=== PATIENT | female | born 1945 | race American Indian/Alaskan Native ===

== ENCOUNTER 2017-07-29 01:00 | Inpatient (IN) | payer MEDICARE ==
[2017-07-29] MEDS ORDERED: NACL 0.9% 1000 ML 1,000 ML IV ONE ×3 (01:02→03:37)
[2017-07-29] MEDS ORDERED: TYLENOL PR ONE (01:02)
[2017-07-29] MEDS ORDERED: LEVAQUIN 750MG/150ML 750 MG/150 ML BAG IV ONE (01:04)
[2017-07-29] MEDS ORDERED: HumuLIN R IV ONE (01:06)
--- NOTE | 2017-07-29 01:40 | XRay Report ---
FINAL REPORT EXAM: XR CHEST 1V AP HISTORY: Fever/Sepsis COMPARISON: None available. FINDINGS: Frontal view(s) of the chest obtained. Heart normal in size. Tracheostomy tube is present and appears midline. Surgical clips right axillary region. Patchy opacity left lung base concerning for pneumonia. No gross pneumothorax. IMPRESSION: Patchy opacity left lung base concerning for pneumonia given the patient's history.
[2017-07-29] MEDS ORDERED: ZOSYN/NS 4.5GM/100ML 4.5 GM/100 ML VIAL IV ONE (02:00)
[2017-07-29] MEDS ORDERED: VANCOMYCIN/NS 1 GM/250 ML 1 GM/250 ML BAG IV SCH (02:00)
[2017-07-29] MEDS ORDERED: VANCOMYCIN/0.45 NS 1 GM/250 ML 1 GM/250 ML BAG IV ONE (02:00)
[2017-07-29 02:08] LABS: ABG PH 7.327 pH Units (7.350-7.450); VEN PH 7.327 (7.320-7.420)
[2017-07-29 02:12] LABS: Hemoglobin 9.7 gm/dl (10.1-14.3); Mean Corpuscular HGB Conc 30 % (30-34); Mean Corpuscular Volume 80 fl (79-97); Platelet Count 373 K/mm3 (140-440); Red Blood Count 4.01 M/mm3 (3.65-5.03)
[2017-07-29 02:27] LABS: Calcium 8.8 mg/dL (8.4-10.2)
[2017-07-29 02:29] LABS: ABG Base Excess TNR mmol/L (-2.0-3.0); ABG HCO3 TNR mmol/L (20.0-26.0); ABG Methemoglobin TNR % (0.0-1.5); ABG Oxygen Saturation TNR % (95.0-99.0); ABG PCO2 TNR mm Hg; ABG PO2 TNR mm Hg (80.0-90.0)
[2017-07-29 02:37] LABS: Partial Thromboplastin Time 55.7 Sec. (24.2-36.6)
[2017-07-29 02:44] LABS: Creatine Kinase MB 1.2 ng/mL (0.0-4.0)
[2017-07-29] MEDS ORDERED: ASPIRIN PR ONE (02:46)
[2017-07-29 02:49] LABS: INR 5.49 (0.87-1.13); Mean Corpuscular Hemoglobin 24 pg (28-32)
--- NOTE | 2017-07-29 03:38 | Emergency Department Report ---
ED Fever HPI - General Chief Complaint: Fever Stated Complaint: HIGH BLOOD SUGAR/FEVER Time Seen by Provider: 07/29/17 01:01 Source: EMS, senior care records Exam Limitations: clinical condition, physical impairment - History of Present Illness Initial Comments: 71-year-old female with chronic debility including tracheostomy, PEG tube, chronic contractures, chronically depressed mental status, and anoxic brain injury, and inability to speak, diabetes, hypertension, and previous mastectomy and hysterectomy presents to the hospital with fever, tachypnea, and tachycardia from the senior care. Patient is unable to provide any history of present illness. Patient opens eyes spontaneously but unable to speak or follow commands which is apparently her baseline. Thick greenish mucus reported coming from tracheostomy. Patient is room air saturation was in the 80s as per EMS but improved with supplemental oxygenation via nonrebreather at tracheostomy tube. High glucose also reported by EMS. Patient presents with indwelling Blackman catheter as well and chronic decubitus ulcers. 1 g of Rocephin and 650 mg of Tylenol provided prior to arrival. Pt also is on coumadin. Pt is a DNR ED Review of Systems ROS: Stated complaint: HIGH BLOOD SUGAR/FEVER Other details as noted in HPI Comment: Unobtainable due to pts medical conditions ED Past Medical Hx - Past Medical History Hx Hypertension: Yes Hx Diabetes: Yes - Surgical History Hx Breast Surgery: Yes (Mastectomy 2002) Additional Surgical History: Hysterectomy 1974 - Social History Smoking Status: Unknown if ever smoked - Medications Home Medications: Home Medications Medication Instructions Recorded Confirmed Last Taken Type Aspirin [Elk Aspirin] 09/30/13 09/30/13 Unknown History Hydrochlorothiazide [Hctz] 12.5 mg PO QDAY 09/30/13 09/30/13 09/30/13 08:00 History Lisinopril [Zestril] 40 mg PO DAILY 09/30/13 09/30/13 09/30/13 08:00 History metFORMIN [Glucophage] 500 mg PO DAILY 09/30/13 09/30/13 09/30/13 08:00 History ED Physical Exam - General Limitations: Altered Mental Status, Physical Limitation, Other - Other Other exam information: General: Frail appearing Head exam: Atraumatic, normocephalic Eyes exam: Pupils equal reactive to light ENT: Dry mucous membrane Neck exam: Normal inspection, tracheostomy Respiratory exam: Crackles left base, tachypnea, accessory muscle use Cardiovascular: Tachycardic regular rhythm Abdomen: Soft, nondistended, and nontender, with normal bowel sounds, no rebound, or guarding. Positive PEG tube Extremity: Significant contractures of the lower extremities Back: Normal Inspection, full range of motion, no tenderness Neurologic: Opens eyes spontaneously, nonverbal, does not follow commands, limited spontaneous movement of extremities Psychiatric: normal affect, normal mood Skin: Left Foot with mild edema with necrosis to the plantar surface of the toes gratis at the first and fifth toe. Mild Drainage noted at the great toe. 2+ DP pulse in the left foot ED Course Vital Signs 07/29/17 07/29/17 07/29/17 00:52 01:00 01:14 Temperature 103.6 F H Pulse Rate 174 H 177 H Respiratory 55 H 26 H Rate Blood Pressure 49/23 93/59 O2 Sat by Pulse 94 100 100 Oximetry 07/29/17 07/29/17 07/29/17 01:16 01:30 01:45 Temperature Pulse Rate 176 H 155 H 147 H Respiratory 20 25 H 24 Rate Blood Pressure 93/59 93/59 O2 Sat by Pulse 100 100 Oximetry 07/29/17 07/29/17 07/29/17 02:01 02:15 02:30 Temperature Pulse Rate 136 H 130 H 130 H Respiratory 21 21 20 Rate Blood Pressure 93/59 86/59 90/64 O2 Sat by Pulse 100 100 100 Oximetry 07/29/17 07/29/17 02:46 04:20 Temperature Pulse Rate 127 H 107 H Respiratory 21 Rate Blood Pressure 90/64 84/55 O2 Sat by Pulse 100 100 Oximetry - Central Line Placement Right IJ Consent Obtained: emergent situation Time Out Performed: Yes Patient Placed on Monitor/Pulse Ox: Yes Prep: mask, gown, gloves Central Line Prep: Chlorhexidine scrub, sterile drapes applied Local Anesthesia Used: Lidocaine 1% Amount of Anesthesia Used (mls): 3 Ultrasound Used for Placement: Yes Central Line Lumen Inserted: triple Bloods Obtained for Lab: Yes Central Line Position: good blood return, sutured in place with nyl Post Procedure X-Ray: tip of catheter in good p Patient Tolerated Procedure: well Complications: none ED Medical Decision Making - Lab Data Result diagrams: 07/29/17 01:41 07/29/17 01:41 Lab Results 07/29/17 07/29/17 07/29/17 Range/Units 01:41 01:41 01:41 WBC 21.0 H (4.5-11.0) K/mm3 RBC 4.01 (3.65-5.03) M/mm3 Hgb 9.7 L (10.1-14.3) gm/dl Hct 32.0 (30.3-42.9) % MCV 80 (79-97) fl MCH 24 L (28-32) pg MCHC 30 (30-34) % RDW 19.0 H (13.2-15.2) % Plt Count 373 (140-440) K/mm3 Add Manual Diff Complete Total Counted 200 Seg Neutrophils % [employer] Analyst Seg Neuts % (Manual) 77.0 H (40.0-70.0) % Band Neutrophils % 15.5 % Lymphocytes % (Manual) 4.5 L (13.4-35.0) % Reactive Lymphs % (Man) 0 % Monocytes % (Manual) 3.0 (0.0-7.3) % Eosinophils % (Manual) 0 (0.0-4.3) % Basophils % (Manual) 0 (0.0-1.8) % Metamyelocytes % 0 % Myelocytes % 0 % Promyelocytes % 0 % Blast Cells % 0 % Nucleated RBC % 1.0 H (0.0-0.9) % Seg Neutrophils # Man 16.2 H (1.8-7.7) K/mm3 Band Neutrophils # 3.3 K/mm3 Lymphocytes # (Manual) 0.9 L (1.2-5.4) K/mm3 Abs React Lymphs (Man) 0.0 K/mm3 Monocytes # (Manual) 0.6 (0.0-0.8) K/mm3 Eosinophils # (Manual) 0.0 (0.0-0.4) K/mm3 Basophils # (Manual) 0.0 (0.0-0.1) K/mm3 Metamyelocytes # 0.0 K/mm3 Myelocytes # 0.0 K/mm3 Promyelocytes # 0.0 K/mm3 Blast Cells # 0.0 K/mm3 WBC Morphology Not Reportable Hypersegmented Neuts Not Reportable Hyposegmented Neuts Not Reportable Hypogranular Neuts Not Reportable Smudge Cells Not Reportable Toxic Granulation Not Reportable Toxic Vacuolation Not Reportable Dohle Bodies Not Reportable Pelger-Huet Anomaly Not Reportable Zach Rods Not Reportable Platelet Estimate Consistent w auto Clumped Platelets Not Reportable Plt Clumps, EDTA Not Reportable Large Platelets Rare Giant Platelets Not Reportable Platelet Satelliting Not Reportable Plt Morphology Comment Not Reportable RBC Morphology Not Reportable Dimorphic RBCs Not Reportable Polychromasia Not Reportable Hypochromasia 1+ Poikilocytosis Not Reportable Anisocytosis Not Reportable Microcytosis Not Reportable Macrocytosis Not Reportable Spherocytes Not Reportable Pappenheimer Bodies Not Reportable Sickle Cells Not Reportable Target Cells Not Reportable Tear Drop Cells Not Reportable Ovalocytes Not Reportable Helmet Cells Not Reportable [place] Bodies Not Reportable [place] Rings Not Reportable [place] Cells Not Reportable Bite Cells Not Reportable Crenated Cell Not Reportable Elliptocytes Not Reportable Acanthocytes (Spur) Not Reportable Rouleaux Not Reportable Hemoglobin C Crystals Not Reportable Schistocytes Not Reportable Malaria parasites Not Reportable He Bodies Not Reportable Hem Pathologist Commnt No PT 54.1 H (12.2-14.9) Sec. INR 5.49 H* (0.87-1.13) APTT 55.7 H (24.2-36.6) Sec. POC ABG pH (7.35-7.45) ABG pH (7.350-7.450) pH Units POC ABG pCO2 (35-45) ABG pCO2 POC ABG pO2 (80-105) ABG pO2 POC ABG HCO3 ABG HCO3 POC ABG Total CO2 POC ABG O2 Sat ABG O2 Saturation ABG O2 Content POC ABG Base Excess ABG Base Excess ABG Hemoglobin ABG Carboxyhemoglobin ABG Methemoglobin VBG pH (7.320-7.420) Oxyhemoglobin FiO2 % Sodium (137-145) mmol/L Potassium (3.6-5.0) mmol/L Chloride (98-107) mmol/L Carbon Dioxide (22-30) mmol/L Anion Gap mmol/L BUN (7-17) mg/dL Creatinine (0.7-1.2) mg/dL Estimated GFR ml/min BUN/Creatinine Ratio % Glucose (65-100) mg/dL Lactic Acid 9.30 H* (0.7-2.0) mmol/L Calcium (8.4-10.2) mg/dL Total Bilirubin (0.1-1.2) mg/dL AST (5-40) units/L ALT (7-56) units/L Alkaline Phosphatase (35-129) units/L Total Creatine Kinase (30-135) units/L CK-MB (CK-2) (0.0-4.0) ng/mL CK-MB (CK-2) Rel Index (0-4) Troponin T (0.00-0.029) ng/mL Total Protein (6.3-8.2) g/dL Albumin (3.9-5) g/dL Albumin/Globulin Ratio % Triglycerides (2-149) mg/dL Cholesterol (50-199) mg/dL LDL Cholesterol Direct (50-130) mg/dL HDL Cholesterol (40-59) mg/dL Cholesterol/HDL Ratio % Urine Color (Yellow) Urine Turbidity (Clear) Urine pH (5.0-7.0) Ur Specific [place] (1.003-1.030) Urine Protein (Negative) mg/dL Urine Glucose (UA) (Negative) mg/dL Urine Ketones (Negative) mg/dL Urine Blood (Negative) Urine Nitrite (Negative) Urine Bilirubin (Negative) Urine Urobilinogen (<2.0) mg/dL Ur Leukocyte Esterase (Negative) Urine WBC (Auto) (0.0-6.0) /HPF Urine RBC (Auto) (0.0-6.0) /HPF U Epithel Cells (Auto) (0-13.0) /HPF Urine Bacteria (Auto) (Negative) /HPF Urine WBC Clumps /HPF Urine Mucus /HPF Ur Yeast w Hyphae /HPF Urine Yeast (Budding) /HPF 07/29/17 07/29/17 07/29/17 Range/Units 01:41 01:41 01:41 WBC (4.5-11.0) K/mm3 RBC (3.65-5.03) M/mm3 Hgb (10.1-14.3) gm/dl Hct (30.3-42.9) % MCV (79-97) fl MCH (28-32) pg MCHC (30-34) % RDW (13.2-15.2) % Plt Count (140-440) K/mm3 Add Manual Diff Total Counted Seg Neutrophils % Seg Neuts % (Manual) (40.0-70.0) % Band Neutrophils % % Lymphocytes % (Manual) (13.4-35.0) % Reactive Lymphs % (Man) % Monocytes % (Manual) (0.0-7.3) % Eosinophils % (Manual) (0.0-4.3) % Basophils % (Manual) (0.0-1.8) % Metamyelocytes % % Myelocytes % % Promyelocytes % % Blast Cells % % Nucleated RBC % (0.0-0.9) % Seg Neutrophils # Man (1.8-7.7) K/mm3 Band Neutrophils # K/mm3 Lymphocytes # (Manual) (1.2-5.4) K/mm3 Abs React Lymphs (Man) K/mm3 Monocytes # (Manual) (0.0-0.8) K/mm3 Eosinophils # (Manual) (0.0-0.4) K/mm3 Basophils # (Manual) (0.0-0.1) K/mm3 Metamyelocytes # K/mm3 Myelocytes # K/mm3 Promyelocytes # K/mm3 Blast Cells # K/mm3 WBC Morphology Hypersegmented Neuts Hyposegmented Neuts Hypogranular Neuts Smudge Cells Toxic Granulation Toxic Vacuolation Dohle Bodies Pelger-Huet Anomaly Zach Rods Platelet Estimate Clumped Platelets Plt Clumps, EDTA Large Platelets Giant Platelets Platelet Satelliting Plt Morphology Comment RBC Morphology Dimorphic RBCs Polychromasia Hypochromasia Poikilocytosis Anisocytosis Microcytosis Macrocytosis Spherocytes Pappenheimer Bodies Sickle Cells Target Cells Tear Drop Cells Ovalocytes Helmet Cells [place] Bodies [place] Rings [place] Cells Bite Cells Crenated Cell Elliptocytes Acanthocytes (Spur) Rouleaux Hemoglobin C Crystals Schistocytes Malaria parasites He Bodies Hem Pathologist Commnt PT (12.2-14.9) Sec. INR (0.87-1.13) APTT (24.2-36.6) Sec. POC ABG pH (7.35-7.45) ABG pH 7.327 L (7.350-7.450) pH Units POC ABG pCO2 (35-45) ABG pCO2 TNR POC ABG pO2 (80-105) ABG pO2 TNR POC ABG HCO3 ABG HCO3 TNR POC ABG Total CO2 POC ABG O2 Sat ABG O2 Saturation TNR ABG O2 Content TNR POC ABG Base Excess ABG Base Excess TNR ABG Hemoglobin TNR ABG Carboxyhemoglobin TNR ABG Methemoglobin TNR VBG pH 7.327 (7.320-7.420) Oxyhemoglobin TNR FiO2 21 % Sodium 154 H (137-145) mmol/L Potassium 3.6 (3.6-5.0) mmol/L Chloride 109.8 H (98-107) mmol/L Carbon Dioxide 23 (22-30) mmol/L Anion Gap 25 mmol/L BUN 43 H (7-17) mg/dL Creatinine 1.3 H (0.7-1.2) mg/dL Estimated GFR 49 ml/min BUN/Creatinine Ratio 33 % Glucose 682 H* (65-100) mg/dL Lactic Acid (0.7-2.0) mmol/L Calcium 8.8 (8.4-10.2) mg/dL Total Bilirubin 0.20 (0.1-1.2) mg/dL AST 27 (5-40) units/L ALT 55 (7-56) units/L Alkaline Phosphatase 109 (35-129) units/L Total Creatine Kinase 91 (30-135) units/L CK-MB (CK-2) 1.2 (0.0-4.0) ng/mL CK-MB (CK-2) Rel Index 1.3 (0-4) Troponin T 0.209 H* (0.00-0.029) ng/mL Total Protein 6.5 (6.3-8.2) g/dL Albumin 2.0 L (3.9-5) g/dL Albumin/Globulin Ratio 0.4 % Triglycerides 115 (2-149) mg/dL Cholesterol 50 (50-199) mg/dL LDL Cholesterol Direct 14 L (50-130) mg/dL HDL Cholesterol 13 L (40-59) mg/dL Cholesterol/HDL Ratio 3.84 % Urine Color (Yellow) Urine Turbidity (Clear) Urine pH (5.0-7.0) Ur Specific [place] (1.003-1.030) Urine Protein (Negative) mg/dL Urine Glucose (UA) (Negative) mg/dL Urine Ketones (Negative) mg/dL Urine Blood (Negative) Urine Nitrite (Negative) Urine Bilirubin (Negative) Urine Urobilinogen (<2.0) mg/dL Ur Leukocyte Esterase (Negative) Urine WBC (Auto) (0.0-6.0) /HPF Urine RBC (Auto) (0.0-6.0) /HPF U Epithel Cells (Auto) (0-13.0) /HPF Urine Bacteria (Auto) (Negative) /HPF Urine WBC Clumps /HPF Urine Mucus /HPF Ur Yeast w Hyphae /HPF Urine Yeast (Budding) /HPF 07/29/17 07/29/17 07/29/17 Range/Units 02:45 03:19 04:11 WBC (4.5-11.0) K/mm3 RBC (3.65-5.03) M/mm3 Hgb (10.1-14.3) gm/dl Hct (30.3-42.9) % MCV (79-97) fl MCH (28-32) pg MCHC (30-34) % RDW (13.2-15.2) % Plt Count (140-440) K/mm3 Add Manual Diff Total Counted Seg Neutrophils % Seg Neuts % (Manual) (40.0-70.0) % Band Neutrophils % % Lymphocytes % (Manual) (13.4-35.0) % Reactive Lymphs % (Man) % Monocytes % (Manual) (0.0-7.3) % Eosinophils % (Manual) (0.0-4.3) % Basophils % (Manual) (0.0-1.8) % Metamyelocytes % % Myelocytes % % Promyelocytes % % Blast Cells % % Nucleated RBC % (0.0-0.9) % Seg Neutrophils # Man (1.8-7.7) K/mm3 Band Neutrophils # K/mm3 Lymphocytes # (Manual) (1.2-5.4) K/mm3 Abs React Lymphs (Man) K/mm3 Monocytes # (Manual) (0.0-0.8) K/mm3 Eosinophils # (Manual) (0.0-0.4) K/mm3 Basophils # (Manual) (0.0-0.1) K/mm3 Metamyelocytes # K/mm3 Myelocytes # K/mm3 Promyelocytes # K/mm3 Blast Cells # K/mm3 WBC Morphology Hypersegmented Neuts Hyposegmented Neuts Hypogranular Neuts Smudge Cells Toxic Granulation Toxic Vacuolation Dohle Bodies Pelger-Huet Anomaly Zach Rods Platelet Estimate Clumped Platelets Plt Clumps, EDTA Large Platelets Giant Platelets Platelet Satelliting Plt Morphology Comment RBC Morphology Dimorphic RBCs Polychromasia Hypochromasia Poikilocytosis Anisocytosis Microcytosis Macrocytosis Spherocytes Pappenheimer Bodies Sickle Cells Target Cells Tear Drop Cells Ovalocytes Helmet Cells [place] Bodies [place] Rings [place] Cells Bite Cells Crenated Cell Elliptocytes Acanthocytes (Spur) Rouleaux Hemoglobin C Crystals Schistocytes Malaria parasites He Bodies Hem Pathologist Commnt PT (12.2-14.9) Sec. INR (0.87-1.13) APTT (24.2-36.6) Sec. POC ABG pH 7.397 (7.35-7.45) ABG pH (7.350-7.450) pH Units POC ABG pCO2 32.9 L (35-45) ABG pCO2 POC ABG pO2 74 L (80-105) ABG pO2 POC ABG HCO3 20.3 ABG HCO3 POC ABG Total CO2 21 POC ABG O2 Sat 95 ABG O2 Saturation ABG O2 Content POC ABG Base Excess -5 ABG Base Excess ABG Hemoglobin ABG Carboxyhemoglobin ABG Methemoglobin VBG pH (7.320-7.420) Oxyhemoglobin FiO2 50 % Sodium (137-145) mmol/L Potassium (3.6-5.0) mmol/L Chloride (98-107) mmol/L Carbon Dioxide (22-30) mmol/L Anion Gap mmol/L BUN (7-17) mg/dL Creatinine (0.7-1.2) mg/dL Estimated GFR ml/min BUN/Creatinine Ratio % Glucose (65-100) mg/dL Lactic Acid 8.30 H* 7.50 H* (0.7-2.0) mmol/L Calcium (8.4-10.2) mg/dL Total Bilirubin (0.1-1.2) mg/dL AST (5-40) units/L ALT (7-56) units/L Alkaline Phosphatase (35-129) units/L Total Creatine Kinase (30-135) units/L CK-MB (CK-2) (0.0-4.0) ng/mL CK-MB (CK-2) Rel Index (0-4) Troponin T (0.00-0.029) ng/mL Total Protein (6.3-8.2) g/dL Albumin (3.9-5) g/dL Albumin/Globulin Ratio % Triglycerides (2-149) mg/dL Cholesterol (50-199) mg/dL LDL Cholesterol Direct (50-130) mg/dL HDL Cholesterol (40-59) mg/dL Cholesterol/HDL Ratio % Urine Color (Yellow) Urine Turbidity (Clear) Urine pH (5.0-7.0) Ur Specific [place] (1.003-1.030) Urine Protein (Negative) mg/dL Urine Glucose (UA) (Negative) mg/dL Urine Ketones (Negative) mg/dL Urine Blood (Negative) Urine Nitrite (Negative) Urine Bilirubin (Negative) Urine Urobilinogen (<2.0) mg/dL Ur Leukocyte Esterase (Negative) Urine WBC (Auto) (0.0-6.0) /HPF Urine RBC (Auto) (0.0-6.0) /HPF U Epithel Cells (Auto) (0-13.0) /HPF Urine Bacteria (Auto) (Negative) /HPF Urine WBC Clumps /HPF Urine Mucus /HPF Ur Yeast w Hyphae /HPF Urine Yeast (Budding) /HPF 07/29/17 07/29/17 Range/Units 04:11 Unknown WBC (4.5-11.0) K/mm3 RBC (3.65-5.03) M/mm3 Hgb (10.1-14.3) gm/dl Hct (30.3-42.9) % MCV (79-97) fl MCH (28-32) pg MCHC (30-34) % RDW (13.2-15.2) % Plt Count (140-440) K/mm3 Add Manual Diff Total Counted Seg Neutrophils % Seg Neuts % (Manual) (40.0-70.0) % Band Neutrophils % % Lymphocytes % (Manual) (13.4-35.0) % Reactive Lymphs % (Man) % Monocytes % (Manual) (0.0-7.3) % Eosinophils % (Manual) (0.0-4.3) % Basophils % (Manual) (0.0-1.8) % Metamyelocytes % % Myelocytes % % Promyelocytes % % Blast Cells % % Nucleated RBC % (0.0-0.9) % Seg Neutrophils # Man (1.8-7.7) K/mm3 Band Neutrophils # K/mm3 Lymphocytes # (Manual) (1.2-5.4) K/mm3 Abs React Lymphs (Man) K/mm3 Monocytes # (Manual) (0.0-0.8) K/mm3 Eosinophils # (Manual) (0.0-0.4) K/mm3 Basophils # (Manual) (0.0-0.1) K/mm3 Metamyelocytes # K/mm3 Myelocytes # K/mm3 Promyelocytes # K/mm3 Blast Cells # K/mm3 WBC Morphology Hypersegmented Neuts Hyposegmented Neuts Hypogranular Neuts Smudge Cells Toxic Granulation Toxic Vacuolation Dohle Bodies Pelger-Huet Anomaly Zach Rods Platelet Estimate Clumped Platelets Plt Clumps, EDTA Large Platelets Giant Platelets Platelet Satelliting Plt Morphology Comment RBC Morphology Dimorphic RBCs Polychromasia Hypochromasia Poikilocytosis Anisocytosis Microcytosis Macrocytosis Spherocytes Pappenheimer Bodies Sickle Cells Target Cells Tear Drop Cells Ovalocytes Helmet Cells [place] Bodies [place] Rings [place] Cells Bite Cells Crenated Cell Elliptocytes Acanthocytes (Spur) Rouleaux Hemoglobin C Crystals Schistocytes Malaria parasites He Bodies Hem Pathologist Commnt PT (12.2-14.9) Sec. INR (0.87-1.13) APTT (24.2-36.6) Sec. POC ABG pH (7.35-7.45) ABG pH (7.350-7.450) pH Units POC ABG pCO2 (35-45) ABG pCO2 POC ABG pO2 (80-105) ABG pO2 POC ABG HCO3 ABG HCO3 POC ABG Total CO2 POC ABG O2 Sat ABG O2 Saturation ABG O2 Content POC ABG Base Excess ABG Base Excess ABG Hemoglobin ABG Carboxyhemoglobin ABG Methemoglobin VBG pH (7.320-7.420) Oxyhemoglobin FiO2 % Sodium (137-145) mmol/L Potassium (3.6-5.0) mmol/L Chloride (98-107) mmol/L Carbon Dioxide (22-30) mmol/L Anion Gap mmol/L BUN (7-17) mg/dL Creatinine (0.7-1.2) mg/dL Estimated GFR ml/min BUN/Creatinine Ratio % Glucose (65-100) mg/dL Lactic Acid (0.7-2.0) mmol/L Calcium (8.4-10.2) mg/dL Total Bilirubin (0.1-1.2) mg/dL AST (5-40) units/L ALT (7-56) units/L Alkaline Phosphatase (35-129) units/L Total Creatine Kinase (30-135) units/L CK-MB (CK-2) (0.0-4.0) ng/mL CK-MB (CK-2) Rel Index (0-4) Troponin T 0.169 H* (0.00-0.029) ng/mL Total Protein (6.3-8.2) g/dL Albumin (3.9-5) g/dL Albumin/Globulin Ratio % Triglycerides (2-149) mg/dL Cholesterol (50-199) mg/dL LDL Cholesterol Direct (50-130) mg/dL HDL Cholesterol (40-59) mg/dL Cholesterol/HDL Ratio % Urine Color Yellow (Yellow) Urine Turbidity Turbid (Clear) Urine pH 5.0 (5.0-7.0) Ur Specific [place] 1.024 (1.003-1.030) Urine Protein 30 mg/dl (Negative) mg/dL Urine Glucose (UA) >=500 (Negative) mg/dL Urine Ketones Neg (Negative) mg/dL Urine Blood Lg (Negative) Urine Nitrite Neg (Negative) Urine Bilirubin Neg (Negative) Urine Urobilinogen < 2.0 (<2.0) mg/dL Ur Leukocyte Esterase Mod (Negative) Urine WBC (Auto) 169.0 H (0.0-6.0) /HPF Urine RBC (Auto) > 182.0 (0.0-6.0) /HPF U Epithel Cells (Auto) 9.0 (0-13.0) /HPF Urine Bacteria (Auto) 4+ (Negative) /HPF Urine WBC Clumps 3+ /HPF Urine Mucus 1+ /HPF Ur Yeast w Hyphae 1+ /HPF Urine Yeast (Budding) 3+ /HPF - EKG Data -: EKG Interpreted by Fl EKG shows normal: sinus rhythm (vs svt), axis (qrs 67), QRS complexes (64), ST- T waves (no STEMI or T-wave inversion) Rate: tachycardia (174) - EKG Data When compared to previous EKG there are: previous EKG unavailable - Radiology Data Radiology results: report reviewed read by radiologist cxr: left lung opacity concerning for pneumonia Read by me Chest x-ray status post right IJ placement: Good line placement without pneumothorax official report pending - Medical Decision Making After 2 L of IV fluids patient heart rate improved from the 170's to the 90s and appears to be sinus rhythm on a monitor. Patient's systolic blood pressure however, remained in the 70s to 80s despite IV fluid resuscitation. Central line was placed per request of hospitalist. Patient received vancomycin, Zosyn , and Levaquin in the ED for sepsis. Source is likely pneumonia but may also be left foot necrosis last infection as well. UA is also positive for infection. Patient is pancultured with results pending. Additional Tylenol provided for fever. Patient is hyperglycemic but does not appear to be in DKA at this time. Insulin initiated. Significant lactic acidosis likely secondary to sepsis. Patient received aspirin for elevated troponin but may also be secondary to renal insufficiency. Repeat troponin pending. No previous labs EKG available for comparison - Differential Diagnosis sepsis, UTI, pneumonia, cellulitis, infected sacral decubitus Critical Care Time: Yes Critical care time in (mins) excluding proc time.: 35 Critical care attestation.: If time is entered above; I have spent that time in minutes in the direct care of this critically ill patient, excluding procedure time. ED Disposition Clinical Impression: Hyperglycemia, Pneumonia, Tracheostomy dependent, Decubitus ulcers, Feeding by G-tube, Lactic acid acidosis, Dehydration, Renal insufficiency, Elevated troponin, Left foot infection, Septic shock, Supratherapeutic INR, UTI (urinary tract infection) Disposition: OP ADMIT IP TO THIS HOSP Is pt being admited?: Yes Condition: Stable Time of Disposition: 03:38 (Dr Painter/hosp)
[2017-07-29 04:11] LABS: Band Neutrophils # (Manual) 3.3 K/mm3; Basophils % (Manual) 0 % (0.0-1.8); Eosinophils % (Manual) 0 % (0.0-4.3); Total Cells Counted 200
[2017-07-29 04:12] LABS: Hypochromasia 1+; Large Platelets Rare; Platelet Estimate Consistent w Auto
[2017-07-29] MEDS ORDERED: ZOFRAN IV PRN (04:30)
[2017-07-29] MEDS ORDERED: LEVOPHED DRIP 4 MG/NS 250 ML 4 MG/250 ML BAG IV ONE (04:30)
[2017-07-29] MEDS ORDERED: SODIUM CHLORIDE FLUSH SYRINGE 10 ML IV PRN (04:30)
--- NOTE | 2017-07-29 04:37 | History and Physical Report ---
History of Present Illness Date of examination: 07/29/17 History of present illness: 71 -year-old history with history of hypertension, diabetes from the assisted for evaluation of fever. In the emergency room she was hypotensive with systolic blood pressure in 80s, she was given IV fluids, central line was placed and he was started on antibiotics. Patient is a aphasic, review of system is unobtainable PAST MEDICAL HISTORY: Hypertension, diabetes PAST SURGICAL HISTORY: Unknown SOCIAL HISTORY: Unknown FAMILY HISTORY: Unknown Medications and Allergies Allergies Allergy/AdvReac Type Severity Reaction Status Date / Time No Known Allergies Allergy Unverified 09/30/13 14:18 Home Medications Medication Instructions Recorded Confirmed Last Taken Type Aspirin [[place] Aspirin] 09/30/13 09/30/13 Unknown History Hydrochlorothiazide [Hctz] 12.5 mg PO QDAY 09/30/13 09/30/13 09/30/13 08:00 History Lisinopril [Zestril] 40 mg PO DAILY 09/30/13 09/30/13 09/30/13 08:00 History metFORMIN [Glucophage] 500 mg PO DAILY 09/30/13 09/30/13 09/30/13 08:00 History Exam - Physical Exam Narrative exam: Gen. appearance: Patient lying in bed, no apparent distress, trach on venrt HEENT: Normocephalic, atraumatic, pupils equally round and reactive to light, extraocular movement intact, and no sclericterus,. No JVD or thyromegaly or nodule,neck supple, no carotid bruit ,mucous membranes moist, no exudate or erythema Heart: S1, S2, regular rate and rhythm Lungs: Clear to auscultation bilaterally, breathing comfortable Abdomen: Positive bowel sounds, nontender, nondistended, no organomegaly Extremity: Good pulses, Contracted No edema, cyanosis, clubbing Skin: toes are bluish reddish on the left foot Sacral decubitus No rash, nodules , warm, dry Neuro: Aphasic, difficult to assess - Constitutional Vitals: Temp Pulse Resp BP Pulse Ox 103.6 F H 107 H 21 84/55 100 07/29/17 01:14 07/29/17 04:20 07/29/17 02:46 07/29/17 04:20 07/29/17 04:20 Results - Labs CBC & Chem 7: 07/29/17 01:41 07/29/17 01:41 Labs: Abnormal lab results 07/29/17 07/29/17 07/29/17 Range/Units 01:41 01:41 01:41 WBC 21.0 H (4.5-11.0) K/mm3 Hgb 9.7 L (10.1-14.3) gm/dl MCH 24 L (28-32) pg RDW 19.0 H (13.2-15.2) % Seg Neuts % (Manual) 77.0 H (40.0-70.0) % Lymphocytes % (Manual) 4.5 L (13.4-35.0) % Nucleated RBC % 1.0 H (0.0-0.9) % Seg Neutrophils # Man 16.2 H (1.8-7.7) K/mm3 Lymphocytes # (Manual) 0.9 L (1.2-5.4) K/mm3 PT 54.1 H (12.2-14.9) Sec. INR 5.49 H* (0.87-1.13) APTT 55.7 H (24.2-36.6) Sec. ABG pH (7.350-7.450) pH Units POC ABG pCO2 (35-45) POC ABG pO2 (80-105) Sodium (137-145) mmol/L Chloride (98-107) mmol/L BUN (7-17) mg/dL Creatinine (0.7-1.2) mg/dL Glucose (65-100) mg/dL Lactic Acid 9.30 H* (0.7-2.0) mmol/L Troponin T (0.00-0.029) ng/mL Albumin (3.9-5) g/dL 07/29/17 07/29/17 07/29/17 Range/Units 01:41 01:41 02:45 WBC (4.5-11.0) K/mm3 Hgb (10.1-14.3) gm/dl MCH (28-32) pg RDW (13.2-15.2) % Seg Neuts % (Manual) (40.0-70.0) % Lymphocytes % (Manual) (13.4-35.0) % Nucleated RBC % (0.0-0.9) % Seg Neutrophils # Man (1.8-7.7) K/mm3 Lymphocytes # (Manual) (1.2-5.4) K/mm3 PT (12.2-14.9) Sec. INR (0.87-1.13) APTT (24.2-36.6) Sec. ABG pH 7.327 L (7.350-7.450) pH Units POC ABG pCO2 32.9 L (35-45) POC ABG pO2 74 L (80-105) Sodium 154 H (137-145) mmol/L Chloride 109.8 H (98-107) mmol/L BUN 43 H (7-17) mg/dL Creatinine 1.3 H (0.7-1.2) mg/dL Glucose 682 H* (65-100) mg/dL Lactic Acid (0.7-2.0) mmol/L Troponin T 0.209 H* (0.00-0.029) ng/mL Albumin 2.0 L (3.9-5) g/dL - Imaging and Cardiology EKG: image reviewed Chest x-ray: image reviewed Assessment and Plan Assessment Chronic respiratory failure Septic shock Hypeernatremia Dehydration pneumonia UTI Coagulopathy Ischemia of the left foot Plan Admit medicine Soda a fluid, levophed drp Continue vancomycin, Zosyn, followe cultures My her sodium level, INR level Consult critical care, vascular DVT pophalaxis
[2017-07-29 04:52] LABS: Bacteria,Urine 4+ /HPF (Negative); Bilirubin,Urine NEG (Negative); Blood,Urine LG (Negative); Color,Urine Yellow (Yellow); Mucus,Urine 1+ /HPF; Urobilinogen,Urine < 2.0 mg/dL (<2.0)
[2017-07-29 04:54] LABS: RBC,Urine > 182.0 /HPF (0.0-6.0)
[2017-07-29] MEDS ORDERED: VANCOMYCIN PHARMACY TO DOSE IV SCH (05:00)
[2017-07-29] MEDS ORDERED: NACL 0.9% 1000 ML 1,000 ML IV SCH (05:00)
[2017-07-29 05:11] LABS: Chol/HDL Ratio 3.84 %
--- NOTE | 2017-07-29 06:05 | XRay Report ---
FINAL REPORT EXAM: XR CHEST 1V AP HISTORY: s/p central line TECHNIQUE: A portable supine view the chest was obtained and is compared to the previous study of the same day. FINDINGS: Since the previous study there is placement of a right-sided central venous line with the tip in the mid superior vena cava. There is no evidence of pneumothorax. The heart size is normal. Mild congestion cannot be excluded. There are patchy infiltrates in left lung base unchanged. The tracheostomy tube in good position. The bones and soft tissues otherwise are unchanged. IMPRESSION: Satisfactory placement of right-sided central venous line without evidence of pneumothorax. Stable left lower lobe infiltrates. Mild congestion cannot be excluded.
[2017-07-29] MEDS ORDERED: D50W (25GM) Syringe IV PRN (06:29)
[2017-07-29] MEDS ORDERED: D5/0.45NS 1,000 ML IV SCH (07:00)
[2017-07-29 08:32] LABS: Creatine Kinase MB 2.8 ng/mL (0.0-4.0)
[2017-07-29] MEDS ORDERED: LOVENOX SUB-Q SCH (10:00)
--- NOTE | 2017-07-29 10:47 | Consultation ---
History of Present Illness - Reason for Consult Consult date: 07/29/17 - History of Present Illness 71 F with numerous comorbidities seen in consult for possible left foot gangrene. The patient was noted to have fevers in her jail. Medications and Allergies Allergies Allergy/AdvReac Type Severity Reaction Status Date / Time No Known Allergies Allergy Unverified 09/30/13 14:18 Home Medications Medication Instructions Recorded Confirmed Last Taken Type Aspirin [[place] Aspirin] 09/30/13 09/30/13 Unknown History Hydrochlorothiazide [Hctz] 12.5 mg PO QDAY 09/30/13 09/30/13 09/30/13 08:00 History Lisinopril [Zestril] 40 mg PO DAILY 09/30/13 09/30/13 09/30/13 08:00 History metFORMIN [Glucophage] 500 mg PO DAILY 09/30/13 09/30/13 09/30/13 08:00 History Carvedilol [Coreg] 3.125 mg PO BID tablet 09/17/15 Unknown Rx Famotidine [Pepcid] 20 mg PO BID tablet 09/17/15 Unknown Rx Lisinopril [Zestril TAB] 2.5 mg PO QDAY tablet 09/17/15 Unknown Rx levETIRAcetam [Keppra ORAL LIQ] 500 mg PO BID 30 Days bottle 09/17/15 Unknown Rx Active Meds: Active Medications Acetaminophen (Tylenol) 650 mg OR Q4H PRN PRN Reason: Pain MILD(1-3)/Fever >100.5/JOLLY Dextrose (D50w (25gm) Syringe) 50 ml IV PRN PRN PRN Reason: Hypoglycemia Norepinephrine (Levophed Drip 4 Mg/Ns 250 Ml) 4 mg in 250 mls @ 7.5 mls/hr IV ONCE.ED ONE; Protocol Stop: 07/30/17 13:49 Last Admin: 07/29/17 06:20 Dose: 2 mcg/min, 7.5 mls/hr Piperacillin Sod/Tazobactam Sod (Zosyn/Ns 3.375gm/50ml) 3.375 gm in 50 mls @ 100 mls/hr IV Q8H TIMMY; Protocol Vancomycin HCl (Vancomycin/0.45 Ns 1 Gm/250 Ml) 1 gm in 250 mls @ 250 mls/hr IV Q12H TIMMY Sodium Chloride (Nacl 0.45% 1000 Ml) 1,000 mls @ 75 mls/hr IV DIRECT TIMMY Insulin Human Lispro (Humalog) 0 unit SUB-Q Q6HR TIMMY; Protocol Ondansetron HCl (Zofran) 4 mg IV Q8H PRN PRN Reason: Nausea And Vomiting Sodium Chloride (Sodium Chloride Flush Syringe 10 Ml) 10 ml IV BID TIMMY Sodium Chloride (Sodium Chloride Flush Syringe 10 Ml) 10 ml IV PRN PRN PRN Reason: LINE FLUSH Vancomycin HCl (Vancomycin Pharmacy To Dose) 1 each IV PKCONSULT TIMMY Exam - Physical Exam Narrative exam: Severely contracted, non-interactive, with tracheostomy. Left foot with PALPABLE left dorsalis pedis. There is mild dark discoloration of the left 1st and second digit and toenails. Dry, no discharge. Feet are warm. - Constitutional Vitals: Temp Pulse Resp BP Pulse Ox 103.6 F H 90 18 118/73 100 07/29/17 01:14 07/29/17 08:15 07/29/17 08:15 07/29/17 08:15 07/29/17 08:00 Results - Labs CBC & Chem 7: 07/29/17 01:41 07/29/17 01:41 Labs: Abnormal lab results 07/29/17 07/29/17 07/29/17 Range/Units 01:41 01:41 01:41 WBC 21.0 H (4.5-11.0) K/mm3 Hgb 9.7 L (10.1-14.3) gm/dl MCH 24 L (28-32) pg RDW 19.0 H (13.2-15.2) % Seg Neuts % (Manual) 77.0 H (40.0-70.0) % Lymphocytes % (Manual) 4.5 L (13.4-35.0) % Nucleated RBC % 1.0 H (0.0-0.9) % Seg Neutrophils # Man 16.2 H (1.8-7.7) K/mm3 Lymphocytes # (Manual) 0.9 L (1.2-5.4) K/mm3 PT 54.1 H (12.2-14.9) Sec. INR 5.49 H* (0.87-1.13) APTT 55.7 H (24.2-36.6) Sec. ABG pH (7.350-7.450) pH Units POC ABG pCO2 (35-45) POC ABG pO2 (80-105) Sodium (137-145) mmol/L Chloride (98-107) mmol/L BUN (7-17) mg/dL Creatinine (0.7-1.2) mg/dL Glucose (65-100) mg/dL POC Glucose (70-105) Lactic Acid 9.30 H* (0.7-2.0) mmol/L Total Creatine Kinase (30-135) units/L Troponin T (0.00-0.029) ng/mL Albumin (3.9-5) g/dL LDL Cholesterol Direct (50-130) mg/dL HDL Cholesterol (40-59) mg/dL Urine WBC (Auto) (0.0-6.0) /HPF 07/29/17 07/29/17 07/29/17 Range/Units 01:41 01:41 02:45 WBC (4.5-11.0) K/mm3 Hgb (10.1-14.3) gm/dl MCH (28-32) pg RDW (13.2-15.2) % Seg Neuts % (Manual) (40.0-70.0) % Lymphocytes % (Manual) (13.4-35.0) % Nucleated RBC % (0.0-0.9) % Seg Neutrophils # Man (1.8-7.7) K/mm3 Lymphocytes # (Manual) (1.2-5.4) K/mm3 PT (12.2-14.9) Sec. INR (0.87-1.13) APTT (24.2-36.6) Sec. ABG pH 7.327 L (7.350-7.450) pH Units POC ABG pCO2 32.9 L (35-45) POC ABG pO2 74 L (80-105) Sodium 154 H (137-145) mmol/L Chloride 109.8 H (98-107) mmol/L BUN 43 H (7-17) mg/dL Creatinine 1.3 H (0.7-1.2) mg/dL Glucose 682 H* (65-100) mg/dL POC Glucose (70-105) Lactic Acid (0.7-2.0) mmol/L Total Creatine Kinase (30-135) units/L Troponin T 0.209 H* (0.00-0.029) ng/mL Albumin 2.0 L (3.9-5) g/dL LDL Cholesterol Direct 14 L (50-130) mg/dL HDL Cholesterol 13 L (40-59) mg/dL Urine WBC (Auto) (0.0-6.0) /HPF 07/29/17 07/29/17 07/29/17 Range/Units 03:19 04:11 04:11 WBC (4.5-11.0) K/mm3 Hgb (10.1-14.3) gm/dl MCH (28-32) pg RDW (13.2-15.2) % Seg Neuts % (Manual) (40.0-70.0) % Lymphocytes % (Manual) (13.4-35.0) % Nucleated RBC % (0.0-0.9) % Seg Neutrophils # Man (1.8-7.7) K/mm3 Lymphocytes # (Manual) (1.2-5.4) K/mm3 PT (12.2-14.9) Sec. INR (0.87-1.13) APTT (24.2-36.6) Sec. ABG pH (7.350-7.450) pH Units POC ABG pCO2 (35-45) POC ABG pO2 (80-105) Sodium (137-145) mmol/L Chloride (98-107) mmol/L BUN (7-17) mg/dL Creatinine (0.7-1.2) mg/dL Glucose (65-100) mg/dL POC Glucose (70-105) Lactic Acid 8.30 H* 7.50 H* (0.7-2.0) mmol/L Total Creatine Kinase (30-135) units/L Troponin T 0.169 H* (0.00-0.029) ng/mL Albumin (3.9-5) g/dL LDL Cholesterol Direct (50-130) mg/dL HDL Cholesterol (40-59) mg/dL Urine WBC (Auto) (0.0-6.0) /HPF 07/29/17 07/29/17 07/29/17 Range/Units 07:50 07:50 09:46 WBC (4.5-11.0) K/mm3 Hgb (10.1-14.3) gm/dl MCH (28-32) pg RDW (13.2-15.2) % Seg Neuts % (Manual) (40.0-70.0) % Lymphocytes % (Manual) (13.4-35.0) % Nucleated RBC % (0.0-0.9) % Seg Neutrophils # Man (1.8-7.7) K/mm3 Lymphocytes # (Manual) (1.2-5.4) K/mm3 PT (12.2-14.9) Sec. INR (0.87-1.13) APTT (24.2-36.6) Sec. ABG pH (7.350-7.450) pH Units POC ABG pCO2 (35-45) POC ABG pO2 (80-105) Sodium (137-145) mmol/L Chloride (98-107) mmol/L BUN (7-17) mg/dL Creatinine (0.7-1.2) mg/dL Glucose (65-100) mg/dL POC Glucose 380 H (70-105) Lactic Acid 3.30 H* (0.7-2.0) mmol/L Total Creatine Kinase 172 H (30-135) units/L Troponin T 0.111 H* D (0.00-0.029) ng/mL Albumin (3.9-5) g/dL LDL Cholesterol Direct (50-130) mg/dL HDL Cholesterol (40-59) mg/dL Urine WBC (Auto) (0.0-6.0) /HPF / Range/Units Unknown WBC (4.5-11.0) K/mm3 Hgb (10.1-14.3) gm/dl MCH (28-32) pg RDW (13.2-15.2) % Seg Neuts % (Manual) (40.0-70.0) % Lymphocytes % (Manual) (13.4-35.0) % Nucleated RBC % (0.0-0.9) % Seg Neutrophils # Man (1.8-7.7) K/mm3 Lymphocytes # (Manual) (1.2-5.4) K/mm3 PT (12.2-14.9) Sec. INR (0.87-1.13) APTT (24.2-36.6) Sec. ABG pH (7.350-7.450) pH Units POC ABG pCO2 (35-45) POC ABG pO2 (80-105) Sodium (137-145) mmol/L Chloride (98-107) mmol/L BUN (7-17) mg/dL Creatinine (0.7-1.2) mg/dL Glucose (65-100) mg/dL POC Glucose (70-105) Lactic Acid (0.7-2.0) mmol/L Total Creatine Kinase (30-135) units/L Troponin T (0.00-0.029) ng/mL Albumin (3.9-5) g/dL LDL Cholesterol Direct (50-130) mg/dL HDL Cholesterol (40-59) mg/dL Urine WBC (Auto) 169.0 H (0.0-6.0) /HPF Assessment and Plan The patient's left DP is palpable, and there are no other overt signs of gangrene of the left foot. It's highly unlikely that this is the source of her fever. Would recommend continuing fever workup from other sources.
--- NOTE | 2017-07-29 11:15 | Gastroenterology Consultation ---
History of Present Illness - Reason for Consult Consult date: 07/29/17 possible G-tube infection Requesting physician: KARSON WHITE - History of Present Illness Patient is a 71 y/o female with PMH of DM, HTN, anoxic brain injury, aphasia, tracheostomy, PEG tube, chronic debility, and chronic contractures who was brought to the ED from senior care for fever. She is currently on vent and being treated for sepsis from possible pneumonia, left foot necrosis, UTI, or infected decubitus ulcers. GI has been consulted for a possible G-tube infection. Patient unable to provider history and no family at bedside, history obtained via chart review. Upon exam, abdomen is benign with PEG site w/o redness, swelling, odor, drainage, or bleeding. G-tube noted to be discolored but intact and patent. Flushed PEG with 30ml of water w/o difficulty. 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) Medications and Allergies Allergies Allergy/AdvReac Type Severity Reaction Status Date / Time No Known Allergies Allergy Unverified 09/30/13 14:18 Home Medications Medication Instructions Recorded Confirmed Last Taken Type Acetaminophen [Acetaminophen ER] 650 mg PO PRN PRN 07/29/17 07/29/17 Unknown History Furosemide [Lasix] 10 mg PO QDAY 07/29/17 07/29/17 Unknown History Glycopyrrolate [Robinul] 1 mg PO BID 07/29/17 07/29/17 Unknown History Ipratropium/Albuterol Sulfate 1 ampul IH Q4HR 07/29/17 07/29/17 Unknown History [DUONEB *Not for PRN Use*] Warfarin [Coumadin] 7.5 mg PO QDAY 07/29/17 07/29/17 Unknown History Warfarin [Coumadin] 10 mg PO 3XW 07/29/17 07/29/17 Unknown History Active Meds: Active Medications Acetaminophen (Tylenol) 650 mg NV Q4H PRN PRN Reason: Pain MILD(1-3)/Fever >100.5/JOLLY Dextrose (D50w (25gm) Syringe) 50 ml IV PRN PRN PRN Reason: Hypoglycemia Norepinephrine (Levophed Drip 4 Mg/Ns 250 Ml) 4 mg in 250 mls @ 7.5 mls/hr IV ONCE.ED ONE; Protocol Stop: 07/30/17 13:49 Last Admin: 07/29/17 06:20 Dose: 2 mcg/min, 7.5 mls/hr Piperacillin Sod/Tazobactam Sod (Zosyn/Ns 3.375gm/50ml) 3.375 gm in 50 mls @ 100 mls/hr IV Q8H TIMMY; Protocol Vancomycin HCl (Vancomycin/0.45 Ns 1 Gm/250 Ml) 1 gm in 250 mls @ 250 mls/hr IV Q12H TIMMY Sodium Chloride (Nacl 0.45% 1000 Ml) 1,000 mls @ 75 mls/hr IV DIRECT TIMMY Insulin Human Lispro (Humalog) 0 unit SUB-Q Q6HR TIMMY; Protocol Ondansetron HCl (Zofran) 4 mg IV Q8H PRN PRN Reason: Nausea And Vomiting Sodium Chloride (Sodium Chloride Flush Syringe 10 Ml) 10 ml IV BID TIMMY Sodium Chloride (Sodium Chloride Flush Syringe 10 Ml) 10 ml IV PRN PRN PRN Reason: LINE FLUSH Vancomycin HCl (Vancomycin Pharmacy To Dose) 1 each IV PKCONSULT TIMMY Review of Systems - Review of Systems ROS unobtainable: due to mental status Exam - Constitutional Vital Signs: Temp Pulse Resp BP Pulse Ox 103.6 F H 90 18 118/73 100 07/29/17 01:14 07/29/17 08:15 07/29/17 08:15 07/29/17 08:15 07/29/17 08:00 General appearance: other (frail appearing, aphasic) - Respiratory Respiratory: bilateral: diminished - Cardiovascular Rhythm: regular Heart Sounds: Present: S1 & S2 - Gastrointestinal General gastrointestinal: Present: soft, non-distended, normal bowel sounds, other (+PEG) - Musculoskeletal Musculoskeletal: other (contractures, left foot necrosis) - Neurologic Neurological: other (unable to assess) - Labs CBC & Chem 7: 07/29/17 01:41 07/29/17 01:41 Lab Results: Laboratory Results - last 24 hr 07/29/17 07/29/17 07/29/17 01:41 01:41 01:41 WBC 21.0 H RBC 4.01 Hgb 9.7 L Hct 32.0 MCV 80 MCH 24 L MCHC 30 RDW 19.0 H Plt Count 373 Add Manual Diff Complete Total Counted 200 Seg Neutrophils % Agency Director Seg Neuts % (Manual) 77.0 H Band Neutrophils % 15.5 Lymphocytes % (Manual) 4.5 L Reactive Lymphs % (Man) 0 Monocytes % (Manual) 3.0 Eosinophils % (Manual) 0 Basophils % (Manual) 0 Metamyelocytes % 0 Myelocytes % 0 Promyelocytes % 0 Blast Cells % 0 Nucleated RBC % 1.0 H Seg Neutrophils # Man 16.2 H Band Neutrophils # 3.3 Lymphocytes # (Manual) 0.9 L Abs React Lymphs (Man) 0.0 Monocytes # (Manual) 0.6 Eosinophils # (Manual) 0.0 Basophils # (Manual) 0.0 Metamyelocytes # 0.0 Myelocytes # 0.0 Promyelocytes # 0.0 Blast Cells # 0.0 WBC Morphology Not Reportable Hypersegmented Neuts Not Reportable Hyposegmented Neuts Not Reportable Hypogranular Neuts Not Reportable Smudge Cells Not Reportable Toxic Granulation Not Reportable Toxic Vacuolation Not Reportable Dohle Bodies Not Reportable Pelger-Huet Anomaly Not Reportable Zach Rods Not Reportable Platelet Estimate Consistent w auto Clumped Platelets Not Reportable Plt Clumps, EDTA Not Reportable Large Platelets Rare Giant Platelets Not Reportable Platelet Satelliting Not Reportable Plt Morphology Comment Not Reportable RBC Morphology Not Reportable Dimorphic RBCs Not Reportable Polychromasia Not Reportable Hypochromasia 1+ Poikilocytosis Not Reportable Anisocytosis Not Reportable Microcytosis Not Reportable Macrocytosis Not Reportable Spherocytes Not Reportable Pappenheimer Bodies Not Reportable Sickle Cells Not Reportable Target Cells Not Reportable Tear Drop Cells Not Reportable Ovalocytes Not Reportable Helmet Cells Not Reportable [place] Bodies Not Reportable [place] Rings Not Reportable [place] Cells Not Reportable Bite Cells Not Reportable Crenated Cell Not Reportable Elliptocytes Not Reportable Acanthocytes (Spur) Not Reportable Rouleaux Not Reportable Hemoglobin C Crystals Not Reportable Schistocytes Not Reportable Malaria parasites Not Reportable He Bodies Not Reportable Hem Pathologist Commnt No PT 54.1 H INR 5.49 H* APTT 55.7 H POC ABG pH ABG pH POC ABG pCO2 ABG pCO2 POC ABG pO2 ABG pO2 POC ABG HCO3 ABG HCO3 POC ABG Total CO2 POC ABG O2 Sat ABG O2 Saturation ABG O2 Content POC ABG Base Excess ABG Base Excess ABG Hemoglobin ABG Carboxyhemoglobin ABG Methemoglobin VBG pH Oxyhemoglobin FiO2 Sodium Potassium Chloride Carbon Dioxide Anion Gap BUN Creatinine Estimated GFR BUN/Creatinine Ratio Glucose POC Glucose Lactic Acid 9.30 H* Calcium Total Bilirubin AST ALT Alkaline Phosphatase Total Creatine Kinase CK-MB (CK-2) CK-MB (CK-2) Rel Index Troponin T Total Protein Albumin Albumin/Globulin Ratio Triglycerides Cholesterol LDL Cholesterol Direct HDL Cholesterol Cholesterol/HDL Ratio Urine Color Urine Turbidity Urine pH Ur Specific [place] Urine Protein Urine Glucose (UA) Urine Ketones Urine Blood Urine Nitrite Urine Bilirubin Urine Urobilinogen Ur Leukocyte Esterase Urine WBC (Auto) Urine RBC (Auto) U Epithel Cells (Auto) Urine Bacteria (Auto) Urine WBC Clumps Urine Mucus Ur Yeast w Hyphae Urine Yeast (Budding) 07/29/17 07/29/17 07/29/17 01:41 01:41 01:41 WBC RBC Hgb Hct MCV MCH MCHC RDW Plt Count Add Manual Diff Total Counted Seg Neutrophils % Seg Neuts % (Manual) Band Neutrophils % Lymphocytes % (Manual) Reactive Lymphs % (Man) Monocytes % (Manual) Eosinophils % (Manual) Basophils % (Manual) Metamyelocytes % Myelocytes % Promyelocytes % Blast Cells % Nucleated RBC % Seg Neutrophils # Man Band Neutrophils # Lymphocytes # (Manual) Abs React Lymphs (Man) Monocytes # (Manual) Eosinophils # (Manual) Basophils # (Manual) Metamyelocytes # Myelocytes # Promyelocytes # Blast Cells # WBC Morphology Hypersegmented Neuts Hyposegmented Neuts Hypogranular Neuts Smudge Cells Toxic Granulation Toxic Vacuolation Dohle Bodies Pelger-Huet Anomaly Zach Rods Platelet Estimate Clumped Platelets Plt Clumps, EDTA Large Platelets Giant Platelets Platelet Satelliting Plt Morphology Comment RBC Morphology Dimorphic RBCs Polychromasia Hypochromasia Poikilocytosis Anisocytosis Microcytosis Macrocytosis Spherocytes Pappenheimer Bodies Sickle Cells Target Cells Tear Drop Cells Ovalocytes Helmet Cells [place] Bodies [place] Rings [place] Cells Bite Cells Crenated Cell Elliptocytes Acanthocytes (Spur) Rouleaux Hemoglobin C Crystals Schistocytes Malaria parasites He Bodies Hem Pathologist Commnt PT INR APTT POC ABG pH ABG pH 7.327 L POC ABG pCO2 ABG pCO2 TNR POC ABG pO2 ABG pO2 TNR POC ABG HCO3 ABG HCO3 TNR POC ABG Total CO2 POC ABG O2 Sat ABG O2 Saturation TNR ABG O2 Content TNR POC ABG Base Excess ABG Base Excess TNR ABG Hemoglobin TNR ABG Carboxyhemoglobin TNR ABG Methemoglobin TNR VBG pH 7.327 Oxyhemoglobin TNR FiO2 21 Sodium 154 H Potassium 3.6 Chloride 109.8 H Carbon Dioxide 23 Anion Gap 25 BUN 43 H Creatinine 1.3 H Estimated GFR 49 BUN/Creatinine Ratio 33 Glucose 682 H* POC Glucose Lactic Acid Calcium 8.8 Total Bilirubin 0.20 AST 27 ALT 55 Alkaline Phosphatase 109 Total Creatine Kinase 91 CK-MB (CK-2) 1.2 CK-MB (CK-2) Rel Index 1.3 Troponin T 0.209 H* Total Protein 6.5 Albumin 2.0 L Albumin/Globulin Ratio 0.4 Triglycerides 115 Cholesterol 50 LDL Cholesterol Direct 14 L HDL Cholesterol 13 L Cholesterol/HDL Ratio 3.84 Urine Color Urine Turbidity Urine pH Ur Specific [place] Urine Protein Urine Glucose (UA) Urine Ketones Urine Blood Urine Nitrite Urine Bilirubin Urine Urobilinogen Ur Leukocyte Esterase Urine WBC (Auto) Urine RBC (Auto) U Epithel Cells (Auto) Urine Bacteria (Auto) Urine WBC Clumps Urine Mucus Ur Yeast w Hyphae Urine Yeast (Budding) 07/29/17 07/29/17 07/29/17 02:45 03:19 04:11 WBC RBC Hgb Hct MCV MCH MCHC RDW Plt Count Add Manual Diff Total Counted Seg Neutrophils % Seg Neuts % (Manual) Band Neutrophils % Lymphocytes % (Manual) Reactive Lymphs % (Man) Monocytes % (Manual) Eosinophils % (Manual) Basophils % (Manual) Metamyelocytes % Myelocytes % Promyelocytes % Blast Cells % Nucleated RBC % Seg Neutrophils # Man Band Neutrophils # Lymphocytes # (Manual) Abs React Lymphs (Man) Monocytes # (Manual) Eosinophils # (Manual) Basophils # (Manual) Metamyelocytes # Myelocytes # Promyelocytes # Blast Cells # WBC Morphology Hypersegmented Neuts Hyposegmented Neuts Hypogranular Neuts Smudge Cells Toxic Granulation Toxic Vacuolation Dohle Bodies Pelger-Huet Anomaly Zach Rods Platelet Estimate Clumped Platelets Plt Clumps, EDTA Large Platelets Giant Platelets Platelet Satelliting Plt Morphology Comment RBC Morphology Dimorphic RBCs Polychromasia Hypochromasia Poikilocytosis Anisocytosis Microcytosis Macrocytosis Spherocytes Pappenheimer Bodies Sickle Cells Target Cells Tear Drop Cells Ovalocytes Helmet Cells [place] Bodies [place] Rings [place] Cells Bite Cells Crenated Cell Elliptocytes Acanthocytes (Spur) Rouleaux Hemoglobin C Crystals Schistocytes Malaria parasites He Bodies Hem Pathologist Commnt PT INR APTT POC ABG pH 7.397 ABG pH POC ABG pCO2 32.9 L ABG pCO2 POC ABG pO2 74 L ABG pO2 POC ABG HCO3 20.3 ABG HCO3 POC ABG Total CO2 21 POC ABG O2 Sat 95 ABG O2 Saturation ABG O2 Content POC ABG Base Excess -5 ABG Base Excess ABG Hemoglobin ABG Carboxyhemoglobin ABG Methemoglobin VBG pH Oxyhemoglobin FiO2 50 Sodium Potassium Chloride Carbon Dioxide Anion Gap BUN Creatinine Estimated GFR BUN/Creatinine Ratio Glucose POC Glucose Lactic Acid 8.30 H* 7.50 H* Calcium Total Bilirubin AST ALT Alkaline Phosphatase Total Creatine Kinase CK-MB (CK-2) CK-MB (CK-2) Rel Index Troponin T Total Protein Albumin Albumin/Globulin Ratio Triglycerides Cholesterol LDL Cholesterol Direct HDL Cholesterol Cholesterol/HDL Ratio Urine Color Urine Turbidity Urine pH Ur Specific [place] Urine Protein Urine Glucose (UA) Urine Ketones Urine Blood Urine Nitrite Urine Bilirubin Urine Urobilinogen Ur Leukocyte Esterase Urine WBC (Auto) Urine RBC (Auto) U Epithel Cells (Auto) Urine Bacteria (Auto) Urine WBC Clumps Urine Mucus Ur Yeast w Hyphae Urine Yeast (Budding) 07/29/17 07/29/17 07/29/17 04:11 07:50 07:50 WBC RBC Hgb Hct MCV MCH MCHC RDW Plt Count Add Manual Diff Total Counted Seg Neutrophils % Seg Neuts % (Manual) Band Neutrophils % Lymphocytes % (Manual) Reactive Lymphs % (Man) Monocytes % (Manual) Eosinophils % (Manual) Basophils % (Manual) Metamyelocytes % Myelocytes % Promyelocytes % Blast Cells % Nucleated RBC % Seg Neutrophils # Man Band Neutrophils # Lymphocytes # (Manual) Abs React Lymphs (Man) Monocytes # (Manual) Eosinophils # (Manual) Basophils # (Manual) Metamyelocytes # Myelocytes # Promyelocytes # Blast Cells # WBC Morphology Hypersegmented Neuts Hyposegmented Neuts Hypogranular Neuts Smudge Cells Toxic Granulation Toxic Vacuolation Dohle Bodies Pelger-Huet Anomaly Zach Rods Platelet Estimate Clumped Platelets Plt Clumps, EDTA Large Platelets Giant Platelets Platelet Satelliting Plt Morphology Comment RBC Morphology Dimorphic RBCs Polychromasia Hypochromasia Poikilocytosis Anisocytosis Microcytosis Macrocytosis Spherocytes Pappenheimer Bodies Sickle Cells Target Cells Tear Drop Cells Ovalocytes Helmet Cells [place] Bodies [place] Rings [place] Cells Bite Cells Crenated Cell Elliptocytes Acanthocytes (Spur) Rouleaux Hemoglobin C Crystals Schistocytes Malaria parasites He Bodies Hem Pathologist Commnt PT INR APTT POC ABG pH ABG pH POC ABG pCO2 ABG pCO2 POC ABG pO2 ABG pO2 POC ABG HCO3 ABG HCO3 POC ABG Total CO2 POC ABG O2 Sat ABG O2 Saturation ABG O2 Content POC ABG Base Excess ABG Base Excess ABG Hemoglobin ABG Carboxyhemoglobin ABG Methemoglobin VBG pH Oxyhemoglobin FiO2 Sodium Potassium Chloride Carbon Dioxide Anion Gap BUN Creatinine Estimated GFR BUN/Creatinine Ratio Glucose POC Glucose Lactic Acid 3.30 H* Calcium Total Bilirubin AST ALT Alkaline Phosphatase Total Creatine Kinase 172 H CK-MB (CK-2) 2.8 CK-MB (CK-2) Rel Index 1.6 Troponin T 0.169 H* 0.111 H* D Total Protein Albumin Albumin/Globulin Ratio Triglycerides Cholesterol LDL Cholesterol Direct HDL Cholesterol Cholesterol/HDL Ratio Urine Color Urine Turbidity Urine pH Ur Specific [place] Urine Protein Urine Glucose (UA) Urine Ketones Urine Blood Urine Nitrite Urine Bilirubin Urine Urobilinogen Ur Leukocyte Esterase Urine WBC (Auto) Urine RBC (Auto) U Epithel Cells (Auto) Urine Bacteria (Auto) Urine WBC Clumps Urine Mucus Ur Yeast w Hyphae Urine Yeast (Budding) 07/29/17 07/29/17 07/29/17 09:46 10:05 Unknown WBC RBC Hgb Hct MCV MCH MCHC RDW Plt Count Add Manual Diff Total Counted Seg Neutrophils % Seg Neuts % (Manual) Band Neutrophils % Lymphocytes % (Manual) Reactive Lymphs % (Man) Monocytes % (Manual) Eosinophils % (Manual) Basophils % (Manual) Metamyelocytes % Myelocytes % Promyelocytes % Blast Cells % Nucleated RBC % Seg Neutrophils # Man Band Neutrophils # Lymphocytes # (Manual) Abs React Lymphs (Man) Monocytes # (Manual) Eosinophils # (Manual) Basophils # (Manual) Metamyelocytes # Myelocytes # Promyelocytes # Blast Cells # WBC Morphology Hypersegmented Neuts Hyposegmented Neuts Hypogranular Neuts Smudge Cells Toxic Granulation Toxic Vacuolation Dohle Bodies Pelger-Huet Anomaly Zach Rods Platelet Estimate Clumped Platelets Plt Clumps, EDTA Large Platelets Giant Platelets Platelet Satelliting Plt Morphology Comment RBC Morphology Dimorphic RBCs Polychromasia Hypochromasia Poikilocytosis Anisocytosis Microcytosis Macrocytosis Spherocytes Pappenheimer Bodies Sickle Cells Target Cells Tear Drop Cells Ovalocytes Helmet Cells [place] Bodies [place] Rings [place] Cells Bite Cells Crenated Cell Elliptocytes Acanthocytes (Spur) Rouleaux Hemoglobin C Crystals Schistocytes Malaria parasites He Bodies Hem Pathologist Commnt PT INR APTT POC ABG pH ABG pH POC ABG pCO2 ABG pCO2 POC ABG pO2 ABG pO2 POC ABG HCO3 ABG HCO3 POC ABG Total CO2 POC ABG O2 Sat ABG O2 Saturation ABG O2 Content POC ABG Base Excess ABG Base Excess ABG Hemoglobin ABG Carboxyhemoglobin ABG Methemoglobin VBG pH Oxyhemoglobin FiO2 Sodium Potassium Chloride Carbon Dioxide Anion Gap BUN Creatinine Estimated GFR BUN/Creatinine Ratio Glucose POC Glucose 380 H Lactic Acid 2.30 H* Calcium Total Bilirubin AST ALT Alkaline Phosphatase Total Creatine Kinase CK-MB (CK-2) CK-MB (CK-2) Rel Index Troponin T Total Protein Albumin Albumin/Globulin Ratio Triglycerides Cholesterol LDL Cholesterol Direct HDL Cholesterol Cholesterol/HDL Ratio Urine Color Yellow Urine Turbidity Turbid Urine pH 5.0 Ur Specific [place] 1.024 Urine Protein 30 mg/dl Urine Glucose (UA) >=500 Urine Ketones Neg Urine Blood Lg Urine Nitrite Neg Urine Bilirubin Neg Urine Urobilinogen < 2.0 Ur Leukocyte Esterase Mod Urine WBC (Auto) 169.0 H Urine RBC (Auto) > 182.0 U Epithel Cells (Auto) 9.0 Urine Bacteria (Auto) 4+ Urine WBC Clumps 3+ Urine Mucus 1+ Ur Yeast w Hyphae 1+ Urine Yeast (Budding) 3+ Assessment and Plan 1.possible G-tube infection -upon physical exam abdomen was found to be benign -PEG site WNL w/o signs and symptoms of infection -G-tube discolored but intact and patent (able to flush with 30ml of water w/o difficulty) -no clinical evident of G-tube infection noted -okay to use as needed -no further GI recommendation at this time, please call if needed
[2017-07-29] MEDS: SODIUM CHLORIDE FLUSH SYRINGE 10 ML IV SCH ×2 (11:22→21:58)
[2017-07-29] MEDS: ZOSYN/NS 3.375GM/50ML 3.375 GM/50 ML BAG IV SCH ×2 (11:22→17:40)
[2017-07-29] MEDS: NACL 0.45% 1000 ML 1,000 ML IV SCH ×2 (11:23→23:54)
[2017-07-29] MEDS: HumaLOG SUB-Q SCH ×2 (13:06→17:43)
--- NOTE | 2017-07-29 15:47 | Consultation ---
History of Present Illness Consult date: 07/29/17 Reason for consult: pneumonia, other (respiratory failure, hypotension, sepsis) History of present illness: Called to evaluate this 71-year-old female, admitted to the CCU with a history of fever or hypoxia or hypotension. The patient Prior history of anoxic brain injury, chronically on tracheotomy. She arrived from assisted reportedly with fever, increased secretions, also noted to be hypotensive and with hypoxemia on arrival. She was given fluids and initiate on oxygen and now he is out of the ICU on ventilatory support. No family available for further history. Information obtained from the record. Admission chest x-ray showed evidence of what appears to be a possible infiltrate in the left lower lobe. Called to evaluate from pulmonary cc standpoint Past History Past Medical History: diabetes, hypertension, other (anoxic brain injury, inability to speak, chornic debility, chronic contractures, chronic decubitus ulcers) Past Surgical History: hysterectomy, mastectomy, Other (s/p trach/PEG) Social history: AND/DNR-allow natural , other (assisted resident) Medications and Allergies Allergies Allergy/AdvReac Type Severity Reaction Status Date / Time No Known Allergies Allergy Unverified 09/30/13 14:18 Home Medications Medication Instructions Recorded Confirmed Last Taken Type Acetaminophen [Acetaminophen ER] 650 mg PO PRN PRN 07/29/17 07/29/17 Unknown History Furosemide [Lasix] 10 mg PO QDAY 07/29/17 07/29/17 Unknown History Glycopyrrolate [Robinul] 1 mg PO BID 07/29/17 07/29/17 Unknown History Ipratropium/Albuterol Sulfate 1 ampul IH Q4HR 07/29/17 07/29/17 Unknown History [DUONEB *Not for PRN Use*] Warfarin [Coumadin] 7.5 mg PO QDAY 07/29/17 07/29/17 Unknown History Warfarin [Coumadin] 10 mg PO 3XW 07/29/17 07/29/17 Unknown History Active Meds: Active Medications Acetaminophen (Tylenol) 650 mg HI Q4H PRN PRN Reason: Pain MILD(1-3)/Fever >100.5/JOLLY Dextrose (D50w (25gm) Syringe) 50 ml IV PRN PRN PRN Reason: Hypoglycemia Norepinephrine (Levophed Drip 4 Mg/Ns 250 Ml) 4 mg in 250 mls @ 7.5 mls/hr IV ONCE.ED ONE; Protocol Stop: 07/30/17 13:49 Last Titration: 07/29/17 14:26 Dose: 10 mcg/min, 37.5 mls/hr Piperacillin Sod/Tazobactam Sod (Zosyn/Ns 3.375gm/50ml) 3.375 gm in 50 mls @ 100 mls/hr IV Q8H TIMMY; Protocol Last Admin: 07/29/17 11:22 Dose: 100 mls/hr Vancomycin HCl (Vancomycin/0.45 Ns 1 Gm/250 Ml) 1 gm in 250 mls @ 250 mls/hr IV Q12H TIMMY Sodium Chloride (Nacl 0.45% 1000 Ml) 1,000 mls @ 75 mls/hr IV DIRECT TIMMY Last Admin: 07/29/17 11:23 Dose: 75 mls/hr Insulin Human Lispro (Humalog) 0 unit SUB-Q Q6HR TIMMY; Protocol Last Admin: 07/29/17 13:06 Dose: 10 unit Ondansetron HCl (Zofran) 4 mg IV Q8H PRN PRN Reason: Nausea And Vomiting Sodium Chloride (Sodium Chloride Flush Syringe 10 Ml) 10 ml IV BID TIMMY Last Admin: 07/29/17 11:22 Dose: 10 ml Sodium Chloride (Sodium Chloride Flush Syringe 10 Ml) 10 ml IV PRN PRN PRN Reason: LINE FLUSH Vancomycin HCl (Vancomycin Pharmacy To Dose) 1 each IV PKCONSULT TIMMY Physical Examination Vital signs: Vital Signs Pulse Ox 94 07/29/17 00:52 General appearance: no acute distress, other (on ventilator support) Eyes: non-icteric ENT: oropharynx dry Neck: supple, no JVD, bruit (tracheotomy in position no bleeding) Ascultation: Bilateral: clear, diminished breath sounds Cardiovascular: regular rate and rhythm Gastrointestinal: normoactive bowel sounds, non-distended Integumentary: normal Extremities: no cyanosis other (poorly responsive) Results - Laboratory Findings CBC and BMP: 07/29/17 01:41 07/29/17 01:41 ABG POC ABG pH 7.397 (7.35-7.45) 07/29/17 02:45 ABG pH 7.327 pH Units (7.350-7.450) L 07/29/17 01:41 POC ABG pCO2 32.9 (35-45) L 07/29/17 02:45 ABG pCO2 TNR 07/29/17 01:41 POC ABG pO2 74 (80-105) L 07/29/17 02:45 ABG pO2 TNR 07/29/17 01:41 POC ABG HCO3 20.3 07/29/17 02:45 POC ABG Total CO2 21 07/29/17 02:45 POC ABG O2 Sat 95 07/29/17 02:45 ABG O2 Saturation TNR 07/29/17 01:41 PT/INR, D-dimer PT 54.1 Sec. (12.2-14.9) H 07/29/17 01:41 INR 5.49 (0.87-1.13) H* 07/29/17 01:41 Abnormal lab findings: Abnormal Labs 07/29/17 07/29/17 07/29/17 01:41 01:41 01:41 WBC 21.0 H Hgb 9.7 L MCH 24 L RDW 19.0 H Seg Neuts % (Manual) 77.0 H Lymphocytes % (Manual) 4.5 L Nucleated RBC % 1.0 H Seg Neutrophils # Man 16.2 H Lymphocytes # (Manual) 0.9 L PT 54.1 H INR 5.49 H* APTT 55.7 H ABG pH POC ABG pCO2 POC ABG pO2 Sodium Chloride BUN Creatinine Glucose POC Glucose Lactic Acid 9.30 H* Total Creatine Kinase Troponin T Albumin LDL Cholesterol Direct HDL Cholesterol Urine WBC (Auto) 07/29/17 07/29/17 07/29/17 01:41 01:41 02:45 WBC Hgb MCH RDW Seg Neuts % (Manual) Lymphocytes % (Manual) Nucleated RBC % Seg Neutrophils # Man Lymphocytes # (Manual) PT INR APTT ABG pH 7.327 L POC ABG pCO2 32.9 L POC ABG pO2 74 L Sodium 154 H Chloride 109.8 H BUN 43 H Creatinine 1.3 H Glucose 682 H* POC Glucose Lactic Acid Total Creatine Kinase Troponin T 0.209 H* Albumin 2.0 L LDL Cholesterol Direct 14 L HDL Cholesterol 13 L Urine WBC (Auto) 07/29/17 07/29/17 07/29/17 03:19 04:11 04:11 WBC Hgb MCH RDW Seg Neuts % (Manual) Lymphocytes % (Manual) Nucleated RBC % Seg Neutrophils # Man Lymphocytes # (Manual) PT INR APTT ABG pH POC ABG pCO2 POC ABG pO2 Sodium Chloride BUN Creatinine Glucose POC Glucose Lactic Acid 8.30 H* 7.50 H* Total Creatine Kinase Troponin T 0.169 H* Albumin LDL Cholesterol Direct HDL Cholesterol Urine WBC (Auto) 07/29/17 07/29/17 07/29/17 07:50 07:50 09:46 WBC Hgb MCH RDW Seg Neuts % (Manual) Lymphocytes % (Manual) Nucleated RBC % Seg Neutrophils # Man Lymphocytes # (Manual) PT INR APTT ABG pH POC ABG pCO2 POC ABG pO2 Sodium Chloride BUN Creatinine Glucose POC Glucose 380 H Lactic Acid 3.30 H* Total Creatine Kinase 172 H Troponin T 0.111 H* D Albumin LDL Cholesterol Direct HDL Cholesterol Urine WBC (Auto) 07/29/17 07/29/17 07/29/17 10:05 10:05 12:45 WBC Hgb MCH RDW Seg Neuts % (Manual) Lymphocytes % (Manual) Nucleated RBC % Seg Neutrophils # Man Lymphocytes # (Manual) PT INR APTT ABG pH POC ABG pCO2 POC ABG pO2 Sodium Chloride BUN Creatinine Glucose POC Glucose 404 H Lactic Acid 2.30 H* Total Creatine Kinase 179 H Troponin T 0.093 H Albumin LDL Cholesterol Direct HDL Cholesterol Urine WBC (Auto) 07/29/17 Unknown WBC Hgb MCH RDW Seg Neuts % (Manual) Lymphocytes % (Manual) Nucleated RBC % Seg Neutrophils # Man Lymphocytes # (Manual) PT INR APTT ABG pH POC ABG pCO2 POC ABG pO2 Sodium Chloride BUN Creatinine Glucose POC Glucose Lactic Acid Total Creatine Kinase Troponin T Albumin LDL Cholesterol Direct HDL Cholesterol Urine WBC (Auto) 169.0 H Assessment and Plan Sepsis with shock Left lower lobe pneumonia Acute on chronic respiratory failure History of anoxic brain injury, chronic Tracheotomy patient Recommendations Serial BP monitoring Keep MAP > 65 Monitor UO, keep > 30 cc/ hr Serial lactate levels q 6-8 hr x 4 0.45 or Riger bolus 500 cc as needed to keep MAP > 65 or to max. of 2 L PRBC if Hgb < 7 monitor for any bleeding Gentle fluids for hydration. Measure intake and output. Central line monitoring if possible keep CVP between 8 and 12 F/u hospital ventilator bundle, Mechanical ventilation support, adjust FiO2 with goal of maintaining oximetry at or above 92% Titrate PEEP up to maintain oximetry of the above oximetry level Set tidal Volume set initially at 6-8 cm PBW for SAM protection Keep PIP < 30 Sedation as needed for patient comfort, adjust to RASS -1 to - 3 Maintain extubation precautions Daily morning sedation vacation and initiate SBT if deemed appropriate DVT prophylaxis PPI prophylaxis Continue current antibiotics Tracheotomy/ Blood cultures No family available for Discussion Critical care time was 40 minutes of [id number] evaluation and coordination of care
[2017-07-29] MEDS: VANCOMYCIN/0.45 NS 1 GM/250 ML 1 GM/250 ML BAG IV SCH (15:51)
[2017-07-29] MEDS ORDERED: VANCOMYCIN VIAL IV SCH (16:00)
--- NOTE | 2017-07-29 17:38 | Event Note ---
Date: 07/29/17 Patient was admitted to the ICU for the management of septic shock, diabetes mellitus with hyperglycemia, patient is not in DKA. The patient was transferred from senior care, on PEG and trach. Continue management per H&P which was done this morning.
[2017-07-29] MEDS ORDERED: VITAMIN K (ADULT ONLY) SUB-Q ONE (18:00)
--- NOTE | 2017-07-29 18:58 | Event Note ---
Date: 07/29/17 Pt seen and examined. Unable to document on [employer] note. Agree with her assessment. G-tube study normal. G-tube site clean with no fluctuance and minimal discharge. G-tube is not the probable source of sepsis, and would continue to look for other sources and manage appropriately. Will sign off.
[2017-07-29 19:47] LABS: BUN/Creatinine Ratio 36; Blood Urea Nitrogen 25 mg/dL (7-17); Calcium 7.7 mg/dL (8.4-10.2); Hemolysis Index 0
[2017-07-29] MEDS: DUONEB *Not for PRN Use IH SCH (20:12)
--- NOTE | 2017-07-29 20:12 | XRay Report ---
FINAL REPORT PROCEDURE: XR G-TUBE STUDY TECHNIQUE: Two supine views of abdomen were obtained pre and post contrast administration through the G-tube. HISTORY: Peg tube placement COMPARISON: Chest x-ray 07/29/2017 at 8:54 a.m. FINDINGS: Fluid very radiograph demonstrates moderate amount of residual stool in the colon with nonspecific intestinal gas pattern. Age due tube is noted in the upper abdomen. There are infiltrates in the left lower lung as seen on the prior study. Radiograph obtained after administration of contrast through the G-tube confirms the intragastric location of the G-tube with normal filling of the stomach and small bowel. IMPRESSION: Due tube is terminating within the gastric lumen. Moderate amount of residual stool Infiltrates left lower lung.
[2017-07-29] MEDS: ROBINUL PO SCH (21:56)
[2017-07-29] MEDS: KCL 20MEQ/100ML 20 MEQ/100 ML BAG IV SCH (23:43)
[2017-07-30] MEDS: HumaLOG SUB-Q SCH ×4 (00:13→18:04)
[2017-07-30] MEDS: DUONEB *Not for PRN Use IH SCH ×4 (00:20→19:20)
[2017-07-30] MEDS: KCL 20MEQ/100ML 20 MEQ/100 ML BAG IV SCH (00:49)
[2017-07-30] MEDS: ZOSYN/NS 3.375GM/50ML 3.375 GM/50 ML BAG IV SCH ×3 (02:10→18:05)
[2017-07-30] MEDS: VANCOMYCIN/0.45 NS 1 GM/250 ML 1 GM/250 ML BAG IV SCH ×2 (04:00→16:09)
[2017-07-30 06:42] LABS: Hematocrit 26.8 % (30.3-42.9); Hemoglobin 8.3 gm/dl (10.1-14.3); Mean Corpuscular HGB Conc 31 % (30-34); Mean Corpuscular Volume 77 fl (79-97); Platelet Count 309 K/mm3 (140-440); Red Blood Count 3.51 M/mm3 (3.65-5.03); Red Cell Distribution Width 18.3 % (13.2-15.2)
[2017-07-30 06:43] LABS: Mean Corpuscular Hemoglobin 24 pg (28-32)
[2017-07-30] MEDS ORDERED: SODIUM BICARBONATE FEEDTUBE PRN (08:38)
[2017-07-30] MEDS ORDERED: PANCREAZE DR 10,500 UNIT FEEDTUBE PRN (08:38)
[2017-07-30] MEDS ORDERED: SIMPLE SYRUP FEEDTUBE PRN ×2 (08:38)
--- NOTE | 2017-07-30 09:25 | Progress Note ---
Assessment and Plan Sepsis with shock. Still on pressors although slowly been stabilized Left lower lobe pneumonia. On antibiotics. Cultures are pending Acute on chronic respiratory failure. Improved History of anoxic brain injury, chronic Tracheotomy patient Hypernatremia. Needs to have additional free water load Hypokalemia Recommendations Serial BP monitoring Keep MAP > 65 K+ replacement 0.45 or D5W, Riger bolus 500 cc ,increase fluid rate Serial BMP, avoid rapid Na+ drop Measure intake and output. Discussed with nursing to monitor CVP between 8 and 12, boluses has needed Taper FIO2 down, keep sats > 92% Sedation as needed for patient comfort, adjust to RASS -1 to - 3 Daily morning sedation vacation and initiate SBT if deemed appropriate DVT prophylaxis PPI prophylaxis Continue current antibiotics and reassess for cultures Critical care time was 31 minutes of [id number] evaluation and coordination of care Subjective Date of service: 07/30/17 Interval history: Unavailable Objective Vital Signs - 12hr 07/29/17 07/29/17 07/29/17 21:30 21:40 21:50 Temperature Pulse Rate 76 76 77 Pulse Rate [ Bilateral] Respiratory 18 18 18 Rate Respiratory Rate [Bilateral ] Respiratory Rate [ Generalized] Blood Pressure 139/98 139/98 140/96 O2 Sat by Pulse 100 100 100 Oximetry O2 Sat by Pulse Oximetry [ Changed] 07/29/17 07/29/17 07/29/17 22:00 22:10 22:20 Temperature Pulse Rate 75 76 74 Pulse Rate [ Bilateral] Respiratory 17 18 18 Rate Respiratory Rate [Bilateral ] Respiratory 18 Rate [ Generalized] Blood Pressure 148/88 148/88 149/84 O2 Sat by Pulse Oximetry O2 Sat by Pulse Oximetry [ Changed] 07/29/17 07/29/17 07/29/17 22:30 22:40 22:50 Temperature Pulse Rate 72 75 74 Pulse Rate [ Bilateral] Respiratory 18 18 18 Rate Respiratory Rate [Bilateral ] Respiratory Rate [ Generalized] Blood Pressure 150/82 150/82 155/89 O2 Sat by Pulse Oximetry O2 Sat by Pulse Oximetry [ Changed] 07/29/17 07/29/17 07/29/17 23:00 23:10 23:20 Temperature Pulse Rate 76 72 69 Pulse Rate [ Bilateral] Respiratory 18 18 18 Rate Respiratory Rate [Bilateral ] Respiratory Rate [ Generalized] Blood Pressure 151/86 151/86 157/87 O2 Sat by Pulse 100 100 100 Oximetry O2 Sat by Pulse Oximetry [ Changed] 07/29/17 07/29/17 07/29/17 23:30 23:40 23:50 Temperature Pulse Rate 70 74 74 Pulse Rate [ Bilateral] Respiratory 18 18 18 Rate Respiratory Rate [Bilateral ] Respiratory Rate [ Generalized] Blood Pressure 155/83 155/83 135/82 O2 Sat by Pulse 100 100 100 Oximetry O2 Sat by Pulse Oximetry [ Changed] 07/30/17 07/30/17 07/30/17 00:00 00:04 00:10 Temperature Pulse Rate 84 83 84 Pulse Rate [ Bilateral] Respiratory 18 18 18 Rate Respiratory Rate [Bilateral ] Respiratory Rate [ Generalized] Blood Pressure 98/59 155/83 155/83 O2 Sat by Pulse 100 100 100 Oximetry O2 Sat by Pulse Oximetry [ Changed] 07/30/17 07/30/17 07/30/17 00:11 00:20 00:27 Temperature Pulse Rate 83 87 Pulse Rate [ 83 Bilateral] Respiratory 18 Rate Respiratory 18 Rate [Bilateral ] Respiratory Rate [ Generalized] Blood Pressure 98/59 91/60 O2 Sat by Pulse 100 100 Oximetry O2 Sat by Pulse 100 Oximetry [ Changed] 07/30/17 07/30/17 07/30/17 00:30 00:40 00:50 Temperature Pulse Rate 86 85 85 Pulse Rate [ 89 Bilateral] Respiratory 18 18 14 Rate Respiratory 20 Rate [Bilateral ] Respiratory Rate [ Generalized] Blood Pressure 91/63 91/63 97/67 O2 Sat by Pulse 100 100 100 Oximetry O2 Sat by Pulse Oximetry [ Changed] 07/30/17 07/30/17 07/30/17 00:51 01:00 01:10 Temperature 99.9 F H Pulse Rate 84 86 Pulse Rate [ Bilateral] Respiratory 18 18 Rate Respiratory Rate [Bilateral ] Respiratory Rate [ Generalized] Blood Pressure 96/65 91/63 O2 Sat by Pulse 100 100 Oximetry O2 Sat by Pulse Oximetry [ Changed] 07/30/17 07/30/17 07/30/17 01:14 01:20 01:30 Temperature Pulse Rate 85 85 Pulse Rate [ Bilateral] Respiratory 18 18 Rate Respiratory Rate [Bilateral ] Respiratory Rate [ Generalized] Blood Pressure 99/67 106/67 O2 Sat by Pulse 100 100 100 Oximetry O2 Sat by Pulse Oximetry [ Changed] 07/30/17 07/30/17 07/30/17 01:40 01:50 02:00 Temperature Pulse Rate 87 88 86 Pulse Rate [ Bilateral] Respiratory 18 18 18 Rate Respiratory Rate [Bilateral ] Respiratory Rate [ Generalized] Blood Pressure 106/67 101/67 97/65 O2 Sat by Pulse 100 100 100 Oximetry O2 Sat by Pulse Oximetry [ Changed] 07/30/17 07/30/17 07/30/17 02:10 02:20 02:30 Temperature Pulse Rate 83 82 85 Pulse Rate [ Bilateral] Respiratory 18 18 14 Rate Respiratory Rate [Bilateral ] Respiratory Rate [ Generalized] Blood Pressure 97/65 101/67 107/67 O2 Sat by Pulse 100 100 100 Oximetry O2 Sat by Pulse Oximetry [ Changed] 07/30/17 07/30/17 07/30/17 02:40 02:50 03:00 Temperature Pulse Rate 86 85 85 Pulse Rate [ Bilateral] Respiratory 18 18 18 Rate Respiratory Rate [Bilateral ] Respiratory Rate [ Generalized] Blood Pressure 107/67 95/64 100/63 O2 Sat by Pulse 100 100 100 Oximetry O2 Sat by Pulse Oximetry [ Changed] 07/30/17 07/30/17 07/30/17 03:10 03:20 03:31 Temperature Pulse Rate 85 Pulse Rate [ Bilateral] Respiratory 18 Rate Respiratory Rate [Bilateral ] Respiratory Rate [ Generalized] Blood Pressure 100/63 96/65 97/60 O2 Sat by Pulse 100 100 Oximetry O2 Sat by Pulse Oximetry [ Changed] 07/30/17 07/30/17 07/30/17 03:40 03:50 04:00 Temperature 98.6 F Pulse Rate 93 H 99 H 100 H Pulse Rate [ Bilateral] Respiratory 18 20 17 Rate Respiratory Rate [Bilateral ] Respiratory Rate [ Generalized] Blood Pressure 104/59 104/59 104/59 O2 Sat by Pulse 100 100 100 Oximetry O2 Sat by Pulse Oximetry [ Changed] 07/30/17 07/30/17 07/30/17 04:10 04:20 04:30 Temperature Pulse Rate 99 H 102 H 103 H Pulse Rate [ Bilateral] Respiratory 20 21 19 Rate Respiratory Rate [Bilateral ] Respiratory Rate [ Generalized] Blood Pressure 97/60 97/60 132/93 O2 Sat by Pulse 100 100 100 Oximetry O2 Sat by Pulse Oximetry [ Changed] 07/30/17 07/30/17 07/30/17 04:41 04:51 05:00 Temperature Pulse Rate 99 H 100 H 98 H Pulse Rate [ Bilateral] Respiratory 20 21 18 Rate Respiratory Rate [Bilateral ] Respiratory Rate [ Generalized] Blood Pressure 123/100 125/101 O2 Sat by Pulse 100 100 100 Oximetry O2 Sat by Pulse Oximetry [ Changed] 07/30/17 07/30/17 07/30/17 05:11 05:21 05:31 Temperature Pulse Rate 98 H 101 H 103 H Pulse Rate [ Bilateral] Respiratory 20 19 17 Rate Respiratory Rate [Bilateral ] Respiratory Rate [ Generalized] Blood Pressure 125/101 125/101 117/69 O2 Sat by Pulse 100 100 100 Oximetry O2 Sat by Pulse Oximetry [ Changed] 07/30/17 07/30/17 07/30/17 05:41 05:51 06:00 Temperature Pulse Rate 102 H 105 H 107 H Pulse Rate [ Bilateral] Respiratory 19 17 18 Rate Respiratory Rate [Bilateral ] Respiratory Rate [ Generalized] Blood Pressure 117/69 117/69 109/71 O2 Sat by Pulse 100 100 100 Oximetry O2 Sat by Pulse Oximetry [ Changed] 07/30/17 07/30/17 07/30/17 06:11 06:13 06:21 Temperature Pulse Rate 106 H 104 H 107 H Pulse Rate [ Bilateral] Respiratory 20 20 Rate Respiratory Rate [Bilateral ] Respiratory Rate [ Generalized] Blood Pressure 109/71 117/69 109/71 O2 Sat by Pulse 100 100 100 Oximetry O2 Sat by Pulse Oximetry [ Changed] 07/30/17 07/30/17 07/30/17 06:30 06:41 06:51 Temperature Pulse Rate 106 H 105 H 105 H Pulse Rate [ Bilateral] Respiratory 18 18 18 Rate Respiratory Rate [Bilateral ] Respiratory Rate [ Generalized] Blood Pressure 108/68 108/68 108/68 O2 Sat by Pulse 100 100 100 Oximetry O2 Sat by Pulse Oximetry [ Changed] 07/30/17 07/30/17 07/30/17 07:00 07:11 07:14 Temperature Pulse Rate 104 H 103 H 103 H Pulse Rate [ Bilateral] Respiratory 18 18 Rate Respiratory Rate [Bilateral ] Respiratory Rate [ Generalized] Blood Pressure 102/69 102/69 102/69 O2 Sat by Pulse 100 100 100 Oximetry O2 Sat by Pulse Oximetry [ Changed] 07/30/17 07/30/17 07/30/17 07:18 07:21 07:30 Temperature Pulse Rate 106 H 103 H Pulse Rate [ 103 H Bilateral] Respiratory 15 16 Rate Respiratory 18 Rate [Bilateral ] Respiratory Rate [ Generalized] Blood Pressure 102/69 108/64 O2 Sat by Pulse 100 100 Oximetry O2 Sat by Pulse Oximetry [ Changed] 07/30/17 07/30/17 07/30/17 07:31 07:32 07:41 Temperature Pulse Rate 106 H Pulse Rate [ 103 H Bilateral] Respiratory 18 Rate Respiratory 18 Rate [Bilateral ] Respiratory Rate [ Generalized] Blood Pressure 108/64 O2 Sat by Pulse 100 Oximetry O2 Sat by Pulse 100 Oximetry [ Changed] 07/30/17 07/30/17 07/30/17 07:51 08:00 08:11 Temperature 98.4 F Pulse Rate 102 H 102 H 101 H Pulse Rate [ Bilateral] Respiratory 17 18 22 Rate Respiratory Rate [Bilateral ] Respiratory Rate [ Generalized] Blood Pressure 108/64 103/64 103/64 O2 Sat by Pulse 100 100 100 Oximetry O2 Sat by Pulse Oximetry [ Changed] 07/30/17 07/30/17 07/30/17 08:21 08:30 08:41 Temperature Pulse Rate 102 H 102 H 100 H Pulse Rate [ Bilateral] Respiratory 16 16 18 Rate Respiratory Rate [Bilateral ] Respiratory Rate [ Generalized] Blood Pressure 103/64 103/65 103/65 O2 Sat by Pulse 100 100 100 Oximetry O2 Sat by Pulse Oximetry [ Changed] Constitutional: no acute distress, other (on ventilator support) Eyes: non-icteric ENT: oropharynx dry Neck: supple, no JVD, bruit (tracheotomy in position no bleeding) Ascultation: Right: rhonchi, Bilateral: clear, diminished breath sounds Cardiovascular: regular rate and rhythm Gastrointestinal: normoactive bowel sounds, non-distended Integumentary: normal Extremities: no cyanosis Neurologic: other (poorly responsive) CBC and BMP: 07/30/17 05:40 07/30/17 15:54 ABG, PT/INR, D-dimer: ABG POC ABG pH 7.461 (7.35-7.45) H 07/30/17 06:13 ABG pH 7.327 pH Units (7.350-7.450) L 07/29/17 01:41 POC ABG pCO2 33.9 (35-45) L 07/30/17 06:13 ABG pCO2 TNR 07/29/17 01:41 POC ABG pO2 226 (80-105) H 07/30/17 06:13 ABG pO2 TNR 07/29/17 01:41 POC ABG HCO3 24.2 07/30/17 06:13 POC ABG Total CO2 25 07/30/17 06:13 POC ABG O2 Sat 100 07/30/17 06:13 ABG O2 Saturation TNR 07/29/17 01:41 PT/INR, D-dimer PT 54.1 Sec. (12.2-14.9) H 07/29/17 01:41 INR 5.49 (0.87-1.13) H* 07/29/17 01:41 Abnormal lab findings: Abnormal Labs 07/29/17 07/29/17 07/29/17 01:41 01:41 01:41 WBC 21.0 H RBC Hgb 9.7 L Hct MCV MCH 24 L RDW 19.0 H Seg Neuts % (Manual) 77.0 H Lymphocytes % (Manual) 4.5 L Nucleated RBC % 1.0 H Seg Neutrophils # Man 16.2 H Lymphocytes # (Manual) 0.9 L PT 54.1 H INR 5.49 H* APTT 55.7 H POC ABG pH ABG pH POC ABG pCO2 POC ABG pO2 Sodium Potassium Chloride BUN Creatinine Glucose POC Glucose Lactic Acid 9.30 H* Calcium Total Creatine Kinase Troponin T Albumin LDL Cholesterol Direct HDL Cholesterol Urine WBC (Auto) 07/29/17 07/29/17 07/29/17 01:41 01:41 02:45 WBC RBC Hgb Hct MCV MCH RDW Seg Neuts % (Manual) Lymphocytes % (Manual) Nucleated RBC % Seg Neutrophils # Man Lymphocytes # (Manual) PT INR APTT POC ABG pH ABG pH 7.327 L POC ABG pCO2 32.9 L POC ABG pO2 74 L Sodium 154 H Potassium Chloride 109.8 H BUN 43 H Creatinine 1.3 H Glucose 682 H* POC Glucose Lactic Acid Calcium Total Creatine Kinase Troponin T 0.209 H* Albumin 2.0 L LDL Cholesterol Direct 14 L HDL Cholesterol 13 L Urine WBC (Auto) 07/29/17 07/29/17 07/29/17 03:19 04:11 04:11 WBC RBC Hgb Hct MCV MCH RDW Seg Neuts % (Manual) Lymphocytes % (Manual) Nucleated RBC % Seg Neutrophils # Man Lymphocytes # (Manual) PT INR APTT POC ABG pH ABG pH POC ABG pCO2 POC ABG pO2 Sodium Potassium Chloride BUN Creatinine Glucose POC Glucose Lactic Acid 8.30 H* 7.50 H* Calcium Total Creatine Kinase Troponin T 0.169 H* Albumin LDL Cholesterol Direct HDL Cholesterol Urine WBC (Auto) 07/29/17 07/29/17 07/29/17 07:50 07:50 09:46 WBC RBC Hgb Hct MCV MCH RDW Seg Neuts % (Manual) Lymphocytes % (Manual) Nucleated RBC % Seg Neutrophils # Man Lymphocytes # (Manual) PT INR APTT POC ABG pH ABG pH POC ABG pCO2 POC ABG pO2 Sodium Potassium Chloride BUN Creatinine Glucose POC Glucose 380 H Lactic Acid 3.30 H* Calcium Total Creatine Kinase 172 H Troponin T 0.111 H* D Albumin LDL Cholesterol Direct HDL Cholesterol Urine WBC (Auto) 07/29/17 07/29/17 07/29/17 10:05 10:05 12:45 WBC RBC Hgb Hct MCV MCH RDW Seg Neuts % (Manual) Lymphocytes % (Manual) Nucleated RBC % Seg Neutrophils # Man Lymphocytes # (Manual) PT INR APTT POC ABG pH ABG pH POC ABG pCO2 POC ABG pO2 Sodium Potassium Chloride BUN Creatinine Glucose POC Glucose 404 H Lactic Acid 2.30 H* Calcium Total Creatine Kinase 179 H Troponin T 0.093 H Albumin LDL Cholesterol Direct HDL Cholesterol Urine WBC (Auto) 07/29/17 07/29/17 07/29/17 17:32 19:23 Unknown WBC RBC Hgb Hct MCV MCH RDW Seg Neuts % (Manual) Lymphocytes % (Manual) Nucleated RBC % Seg Neutrophils # Man Lymphocytes # (Manual) PT INR APTT POC ABG pH ABG pH POC ABG pCO2 POC ABG pO2 Sodium 156 H Potassium 2.6 L* D Chloride 119.9 H BUN 25 H Creatinine Glucose 275 H POC Glucose 343 H Lactic Acid Calcium 7.7 L Total Creatine Kinase Troponin T Albumin LDL Cholesterol Direct HDL Cholesterol Urine WBC (Auto) 169.0 H 07/30/17 07/30/17 07/30/17 00:02 05:33 05:40 WBC 23.9 H RBC 3.51 L Hgb 8.3 L Hct 26.8 L MCV 77 L MCH 24 L RDW 18.3 H Seg Neuts % (Manual) Lymphocytes % (Manual) Nucleated RBC % Seg Neutrophils # Man Lymphocytes # (Manual) PT INR APTT POC ABG pH ABG pH POC ABG pCO2 POC ABG pO2 Sodium Potassium Chloride BUN Creatinine Glucose POC Glucose 186 H 246 H Lactic Acid Calcium Total Creatine Kinase Troponin T Albumin LDL Cholesterol Direct HDL Cholesterol Urine WBC (Auto) 07/30/17 06:13 WBC RBC Hgb Hct MCV MCH RDW Seg Neuts % (Manual) Lymphocytes % (Manual) Nucleated RBC % Seg Neutrophils # Man Lymphocytes # (Manual) PT INR APTT POC ABG pH 7.461 H ABG pH POC ABG pCO2 33.9 L POC ABG pO2 226 H Sodium Potassium Chloride BUN Creatinine Glucose POC Glucose Lactic Acid Calcium Total Creatine Kinase Troponin T Albumin LDL Cholesterol Direct HDL Cholesterol Urine WBC (Auto)
[2017-07-30 09:45] LABS: BUN/Creatinine Ratio 32; Blood Urea Nitrogen 19 mg/dL (7-17); Calcium 7.8 mg/dL (8.4-10.2); Hemolysis Index 2
[2017-07-30] MEDS: ROBINUL PO SCH ×2 (09:55→21:13)
[2017-07-30] MEDS: PEPCID IV SCH ×2 (09:55→21:13)
[2017-07-30] MEDS ORDERED: LASIX PO SCH (10:00)
[2017-07-30] MEDS ORDERED: POTASSIUM CHLORIDE FEEDTUBE ONE ×2 (10:00→20:25)
[2017-07-30 10:10] LABS: Band Neutrophils # (Manual) 1.9 K/mm3; Basophils % (Manual) 0 % (0.0-1.8); Eosinophils % (Manual) 0 % (0.0-4.3); Hypochromasia 1+; Total Cells Counted 100
[2017-07-30 10:55] LABS: INR 5.87 (0.87-1.13)
[2017-07-30] MEDS: TYLENOL PR PRN (13:00)
--- NOTE | 2017-07-30 15:24 | Hem/Onc Consultation ---
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) Medications and Allergies Allergies Allergy/AdvReac Type Severity Reaction Status Date / Time No Known Allergies Allergy Unverified 09/30/13 14:18 Home Medications Medication Instructions Recorded Confirmed Last Taken Type Acetaminophen [Acetaminophen ER] 650 mg PO PRN PRN 07/29/17 07/29/17 Unknown History Furosemide [Lasix] 10 mg PO QDAY 07/29/17 07/29/17 Unknown History Glycopyrrolate [Robinul] 1 mg PO BID 07/29/17 07/29/17 Unknown History Ipratropium/Albuterol Sulfate 1 ampul IH Q4HR 07/29/17 07/29/17 Unknown History [DUONEB *Not for PRN Use*] Warfarin [Coumadin] 7.5 mg PO QDAY 07/29/17 07/29/17 Unknown History Warfarin [Coumadin] 10 mg PO 3XW 07/29/17 07/29/17 Unknown History Active Meds: Active Medications Acetaminophen (Tylenol) 650 mg GA Q4H PRN PRN Reason: Pain MILD(1-3)/Fever >100.5/JOLLY Albuterol/Ipratropium (Duoneb *Not For Prn Use*) 1 ampul IH TIDRT [facility] Last Admin: 07/30/17 13:11 Dose: 1 ampul Lipase/Protease/Amylase (Pancreaze Dr 10,500 Unit) 1 each FEEDTUBE PRN PRN PRN Reason: For Clogged Feeding Tube Dextrose (D50w (25gm) Syringe) 50 ml IV PRN PRN PRN Reason: Hypoglycemia Famotidine (Pepcid) 20 mg IV BID [facility] Last Admin: 07/30/17 09:55 Dose: 20 mg Glycopyrrolate (Robinul) 1 mg PO BID [facility] Last Admin: 07/30/17 09:55 Dose: 1 mg Piperacillin Sod/Tazobactam Sod (Zosyn/Ns 3.375gm/50ml) 3.375 gm in 50 mls @ 100 mls/hr IV Q8H [facility]; Protocol Last Admin: 07/30/17 09:54 Dose: 100 mls/hr Vancomycin HCl (Vancomycin/0.45 Ns 1 Gm/250 Ml) 1 gm in 250 mls @ 250 mls/hr IV Q12H [facility] Last Admin: 07/30/17 04:00 Dose: 250 mls/hr Sodium Chloride (Nacl 0.45% 1000 Ml) 1,000 mls @ 75 mls/hr IV DIRECT [facility] Last Admin: 07/29/17 23:54 Dose: 75 mls/hr Insulin Human Lispro (Humalog) 0 unit SUB-Q Q6HR [facility]; Protocol Last Admin: 07/30/17 06:29 Dose: 4 unit Ondansetron HCl (Zofran) 4 mg IV Q8H PRN PRN Reason: Nausea And Vomiting Simple Syrup (Simple Syrup) 15 ml FEEDTUBE PRN PRN PRN Reason: Hypoglycemia Simple Syrup (Simple Syrup) 30 ml FEEDTUBE PRN PRN PRN Reason: Hypoglycemia Sodium Bicarbonate (Sodium Bicarbonate) 325 mg FEEDTUBE PRN PRN PRN Reason: For Clogged Feeding Tube Sodium Chloride (Sodium Chloride Flush Syringe 10 Ml) 10 ml IV BID [facility] Last Admin: 07/29/17 21:58 Dose: 10 ml Sodium Chloride (Sodium Chloride Flush Syringe 10 Ml) 10 ml IV PRN PRN PRN Reason: LINE FLUSH Vancomycin HCl (Vancomycin Pharmacy To Dose) 1 each IV PKCONSULT [facility] Exam - Constitutional Vitals: Last Vital Signs Temp 98.4 F 07/30/17 08:00 Pulse 92 H 07/30/17 13:28 Resp 18 07/30/17 13:28 BP 98/49 07/30/17 13:10 Pulse Ox 100 07/30/17 13:10 Results - Labs lab Results: Laboratory Results - last 24 hr 07/29/17 07/29/17 07/29/17 12:45 17:32 19:23 WBC RBC Hgb Hct MCV MCH MCHC RDW Plt Count Add Manual Diff Total Counted Seg Neutrophils % Seg Neuts % (Manual) Band Neutrophils % Lymphocytes % (Manual) Reactive Lymphs % (Man) Monocytes % (Manual) Eosinophils % (Manual) Basophils % (Manual) Metamyelocytes % Myelocytes % Promyelocytes % Blast Cells % Nucleated RBC % Seg Neutrophils # Man Band Neutrophils # Lymphocytes # (Manual) Abs React Lymphs (Man) Monocytes # (Manual) Eosinophils # (Manual) Basophils # (Manual) Metamyelocytes # Myelocytes # Promyelocytes # Blast Cells # WBC Morphology Hypersegmented Neuts Hyposegmented Neuts Hypogranular Neuts Smudge Cells Toxic Granulation Toxic Vacuolation Dohle Bodies Pelger-Huet Anomaly Zach Rods Platelet Estimate Clumped Platelets Plt Clumps, EDTA Large Platelets Giant Platelets Platelet Satelliting Plt Morphology Comment RBC Morphology Dimorphic RBCs Polychromasia Hypochromasia Poikilocytosis Anisocytosis Microcytosis Macrocytosis Spherocytes Pappenheimer Bodies Sickle Cells Target Cells Tear Drop Cells Ovalocytes Helmet Cells [place] Bodies [place] Rings Dillon Cells Bite Cells Crenated Cell Elliptocytes Acanthocytes (Spur) Rouleaux Hemoglobin C Crystals Schistocytes Malaria parasites He Bodies Hem Pathologist Commnt PT INR POC ABG pH POC ABG pCO2 POC ABG pO2 POC ABG HCO3 POC ABG Total CO2 POC ABG O2 Sat POC ABG Base Excess FiO2 Sodium 156 H Potassium 2.6 L* D Chloride 119.9 H Carbon Dioxide 24 Anion Gap 15 BUN 25 H Creatinine 0.7 Estimated GFR > 60 BUN/Creatinine Ratio 36 Glucose 275 H POC Glucose 404 H 343 H Calcium 7.7 L 07/30/17 07/30/17 07/30/17 00:02 05:33 05:40 WBC 23.9 H RBC 3.51 L Hgb 8.3 L Hct 26.8 L MCV 77 L MCH 24 L MCHC 31 RDW 18.3 H Plt Count 309 Add Manual Diff Complete Total Counted 100 Seg Neutrophils % Attending Urologist Seg Neuts % (Manual) 84.0 H Band Neutrophils % 8.0 Lymphocytes % (Manual) 7.0 L Reactive Lymphs % (Man) 0 Monocytes % (Manual) 1.0 Eosinophils % (Manual) 0 Basophils % (Manual) 0 Metamyelocytes % 0 Myelocytes % 0 Promyelocytes % 0 Blast Cells % 0 Nucleated RBC % Not Reportable Seg Neutrophils # Man 20.1 H Band Neutrophils # 1.9 Lymphocytes # (Manual) 1.7 Abs React Lymphs (Man) 0.0 Monocytes # (Manual) 0.2 Eosinophils # (Manual) 0.0 Basophils # (Manual) 0.0 Metamyelocytes # 0.0 Myelocytes # 0.0 Promyelocytes # 0.0 Blast Cells # 0.0 WBC Morphology Not Reportable Hypersegmented Neuts Not Reportable Hyposegmented Neuts Not Reportable Hypogranular Neuts Not Reportable Smudge Cells Not Reportable Toxic Granulation Not Reportable Toxic Vacuolation Not Reportable Dohle Bodies Not Reportable Pelger-Huet Anomaly Not Reportable Zach Rods Not Reportable Platelet Estimate Not Reportable Clumped Platelets Not Reportable Plt Clumps, EDTA Not Reportable Large Platelets Not Reportable Giant Platelets Not Reportable Platelet Satelliting Not Reportable Plt Morphology Comment Not Reportable RBC Morphology Not Reportable Dimorphic RBCs Not Reportable Polychromasia Not Reportable Hypochromasia 1+ Poikilocytosis Not Reportable Anisocytosis Not Reportable Microcytosis Not Reportable Macrocytosis Not Reportable Spherocytes Not Reportable Pappenheimer Bodies Not Reportable Sickle Cells Not Reportable Target Cells Not Reportable Tear Drop Cells Not Reportable Ovalocytes Not Reportable Helmet Cells Not Reportable [place] Bodies Not Reportable [place] Rings Not Reportable [place] Cells Not Reportable Bite Cells Not Reportable Crenated Cell Not Reportable Elliptocytes Not Reportable Acanthocytes (Spur) Not Reportable Rouleaux Not Reportable Hemoglobin C Crystals Not Reportable Schistocytes Not Reportable Malaria parasites Not Reportable He Bodies Not Reportable Hem Pathologist Commnt No PT INR POC ABG pH POC ABG pCO2 POC ABG pO2 POC ABG HCO3 POC ABG Total CO2 POC ABG O2 Sat POC ABG Base Excess FiO2 Sodium Potassium Chloride Carbon Dioxide Anion Gap BUN Creatinine Estimated GFR BUN/Creatinine Ratio Glucose POC Glucose 186 H 246 H Calcium 07/30/17 07/30/17 07/30/17 05:40 06:13 Unknown WBC RBC Hgb Hct MCV MCH MCHC RDW Plt Count Add Manual Diff Total Counted Seg Neutrophils % Seg Neuts % (Manual) Band Neutrophils % Lymphocytes % (Manual) Reactive Lymphs % (Man) Monocytes % (Manual) Eosinophils % (Manual) Basophils % (Manual) Metamyelocytes % Myelocytes % Promyelocytes % Blast Cells % Nucleated RBC % Seg Neutrophils # Man Band Neutrophils # Lymphocytes # (Manual) Abs React Lymphs (Man) Monocytes # (Manual) Eosinophils # (Manual) Basophils # (Manual) Metamyelocytes # Myelocytes # Promyelocytes # Blast Cells # WBC Morphology Hypersegmented Neuts Hyposegmented Neuts Hypogranular Neuts Smudge Cells Toxic Granulation Toxic Vacuolation Dohle Bodies Pelger-Huet Anomaly Zach Rods Platelet Estimate Clumped Platelets Plt Clumps, EDTA Large Platelets Giant Platelets Platelet Satelliting Plt Morphology Comment RBC Morphology Dimorphic RBCs Polychromasia Hypochromasia Poikilocytosis Anisocytosis Microcytosis Macrocytosis Spherocytes Pappenheimer Bodies Sickle Cells Target Cells Tear Drop Cells Ovalocytes Helmet Cells [place] Bodies [place] Rings Gibbs Cells Bite Cells Crenated Cell Elliptocytes Acanthocytes (Spur) Rouleaux Hemoglobin C Crystals Schistocytes Malaria parasites He Bodies Hem Pathologist Commnt PT 57.1 H INR 5.87 H* POC ABG pH 7.461 H POC ABG pCO2 33.9 L POC ABG pO2 226 H POC ABG HCO3 24.2 POC ABG Total CO2 25 POC ABG O2 Sat 100 POC ABG Base Excess 0 FiO2 50 Sodium 156 H Potassium 3.2 L D Chloride 117.5 H Carbon Dioxide 23 Anion Gap 19 BUN 19 H Creatinine 0.6 L Estimated GFR > 60 BUN/Creatinine Ratio 32 Glucose 212 H POC Glucose Calcium 7.8 L
[2017-07-30] MEDS: SODIUM CHLORIDE FLUSH SYRINGE 10 ML IV SCH ×2 (16:07→21:13)
[2017-07-30] MEDS: NACL 0.45% 1000 ML 1,000 ML IV SCH (16:28)
[2017-07-30 16:39] LABS: BUN/Creatinine Ratio 30; Blood Urea Nitrogen 15 mg/dL (7-17); Calcium 7.6 mg/dL (8.4-10.2); Hemolysis Index 0
[2017-07-30] MEDS ORDERED: NACL 0.9% 500 ML 500 ML ONE (16:40)
[2017-07-30 17:17] LABS: INR 4.33 (0.87-1.13)
[2017-07-30 17:38] LABS: Partial Thromboplastin Time 62.8 Sec. (24.2-36.6)
[2017-07-30 17:44] LABS: Hematocrit 25.1 % (30.3-42.9); Hemoglobin 7.8 gm/dl (10.1-14.3); Mean Corpuscular HGB Conc 31 % (30-34); Mean Corpuscular Volume 76 fl (79-97); Platelet Count 289 K/mm3 (140-440); Red Blood Count 3.29 M/mm3 (3.65-5.03); Red Cell Distribution Width 18.2 % (13.2-15.2)
[2017-07-30 17:46] LABS: Mean Corpuscular Hemoglobin 24 pg (28-32)
[2017-07-30] MEDS: LEVOPHED DRIP 4 MG/NS 250 ML 4 MG/250 ML BAG IV SCH (18:05)
[2017-07-30 18:34] LABS: Total Cells Counted 100
--- NOTE | 2017-07-30 18:34 | Progress Note ---
Assessment and Plan Assessment and plan: Septic shock - Patient is managed according to sepsis protocol, IV antibiotics, fluids, and pressors Pneumonia - continue IV antibiotics Respiratory failure on trach and mechanical ventilation -Pulmonary is following Coumadin toxicity - Patient now is holding up despite we discontinued Coumadin - hematology oncology consulted History of multiple strokes - Patient is bedbound Nutrition - Through PEG tubes, GI consult appreciated Disposition - Continue ICU care History Interval history: patient was seen and evaluated this morning, patient is comatose, on PEG and trach, on MV. Hospitalist Physical - Physical exam Narrative exam: Patient is comatose, on PEG and trach, on mechanical ventilation. Vital signs as documented. Head exam is unremarkable. No scleral icterus . Neck is without jugular venous distension, thyromegaly, or carotid bruits. Lungs are clear to auscultation. Cardiac exam reveals regular rate and Rhythm. First and second heart sounds normal. No murmurs, rubs or gallops. Abdominal exam reveals normal bowel sounds, no masses, no organomegaly and no aortic enlargement. Extremities contracted, decubitus ulcer. SPECTROSCOPIST: patient is comatose. - Constitutional Vitals: Temp Pulse Resp BP Pulse Ox 99 F 71 18 106/53 100 07/30/17 16:00 07/30/17 18:00 07/30/17 18:00 07/30/17 18:00 07/30/17 18:00 Results - Labs CBC & Chem 7: 07/30/17 16:52 07/30/17 15:54 Labs: Laboratory Last Values WBC 22.9 K/mm3 (4.5-11.0) H 07/30/17 16:52 RBC 3.29 M/mm3 (3.65-5.03) L 07/30/17 16:52 Hgb 7.8 gm/dl (10.1-14.3) L 07/30/17 16:52 Hct 25.1 % (30.3-42.9) L 07/30/17 16:52 MCV 76 fl (79-97) L 07/30/17 16:52 MCH 24 pg (28-32) L 07/30/17 16:52 MCHC 31 % (30-34) 07/30/17 16:52 RDW 18.2 % (13.2-15.2) H 07/30/17 16:52 Plt Count 289 K/mm3 (140-440) 07/30/17 16:52 Add Manual Diff Complete 07/30/17 05:40 Total Counted 100 07/30/17 05:40 Seg Neutrophils % Director Behavioral Health 07/30/17 16:52 Seg Neuts % (Manual) 84.0 % (40.0-70.0) H 07/30/17 05:40 Band Neutrophils % 8.0 % 07/30/17 05:40 Lymphocytes % (Manual) 7.0 % (13.4-35.0) L 07/30/17 05:40 Reactive Lymphs % (Man) 0 % 07/30/17 05:40 Monocytes % (Manual) 1.0 % (0.0-7.3) 07/30/17 05:40 Eosinophils % (Manual) 0 % (0.0-4.3) 07/30/17 05:40 Basophils % (Manual) 0 % (0.0-1.8) 07/30/17 05:40 Metamyelocytes % 0 % 07/30/17 05:40 Myelocytes % 0 % 07/30/17 05:40 Promyelocytes % 0 % 07/30/17 05:40 Blast Cells % 0 % 07/30/17 05:40 Nucleated RBC % Not Reportable 07/30/17 05:40 Seg Neutrophils # Man 20.1 K/mm3 (1.8-7.7) H 07/30/17 05:40 Band Neutrophils # 1.9 K/mm3 07/30/17 05:40 Lymphocytes # (Manual) 1.7 K/mm3 (1.2-5.4) 07/30/17 05:40 Abs React Lymphs (Man) 0.0 K/mm3 07/30/17 05:40 Monocytes # (Manual) 0.2 K/mm3 (0.0-0.8) 07/30/17 05:40 Eosinophils # (Manual) 0.0 K/mm3 (0.0-0.4) 07/30/17 05:40 Basophils # (Manual) 0.0 K/mm3 (0.0-0.1) 07/30/17 05:40 Metamyelocytes # 0.0 K/mm3 07/30/17 05:40 Myelocytes # 0.0 K/mm3 07/30/17 05:40 Promyelocytes # 0.0 K/mm3 07/30/17 05:40 Blast Cells # 0.0 K/mm3 07/30/17 05:40 WBC Morphology Not Reportable 07/30/17 05:40 Hypersegmented Neuts Not Reportable 07/30/17 05:40 Hyposegmented Neuts Not Reportable 07/30/17 05:40 Hypogranular Neuts Not Reportable 07/30/17 05:40 Smudge Cells Not Reportable 07/30/17 05:40 Toxic Granulation Not Reportable 07/30/17 05:40 Toxic Vacuolation Not Reportable 07/30/17 05:40 Dohle Bodies Not Reportable 07/30/17 05:40 Pelger-Huet Anomaly Not Reportable 07/30/17 05:40 Zach Rods Not Reportable 07/30/17 05:40 Platelet Estimate Not Reportable 07/30/17 05:40 Clumped Platelets Not Reportable 07/30/17 05:40 Plt Clumps, EDTA Not Reportable 07/30/17 05:40 Large Platelets Not Reportable 07/30/17 05:40 Giant Platelets Not Reportable 07/30/17 05:40 Platelet Satelliting Not Reportable 07/30/17 05:40 Plt Morphology Comment Not Reportable 07/30/17 05:40 RBC Morphology Not Reportable 07/30/17 05:40 Dimorphic RBCs Not Reportable 07/30/17 05:40 Polychromasia Not Reportable 07/30/17 05:40 Hypochromasia 1+ 07/30/17 05:40 Poikilocytosis Not Reportable 07/30/17 05:40 Anisocytosis Not Reportable 07/30/17 05:40 Microcytosis Not Reportable 07/30/17 05:40 Macrocytosis Not Reportable 07/30/17 05:40 Spherocytes Not Reportable 07/30/17 05:40 Pappenheimer Bodies Not Reportable 07/30/17 05:40 Sickle Cells Not Reportable 07/30/17 05:40 Target Cells Not Reportable 07/30/17 05:40 Tear Drop Cells Not Reportable 07/30/17 05:40 Ovalocytes Not Reportable 07/30/17 05:40 Helmet Cells Not Reportable 07/30/17 05:40 [place] Bodies Not Reportable 07/30/17 05:40 [place] Rings Not Reportable 07/30/17 05:40 Dillon Cells Not Reportable 07/30/17 05:40 Bite Cells Not Reportable 07/30/17 05:40 Crenated Cell Not Reportable 07/30/17 05:40 Elliptocytes Not Reportable 07/30/17 05:40 Acanthocytes (Spur) Not Reportable 07/30/17 05:40 Rouleaux Not Reportable 07/30/17 05:40 Hemoglobin C Crystals Not Reportable 07/30/17 05:40 Schistocytes Not Reportable 07/30/17 05:40 Malaria parasites Not Reportable 07/30/17 05:40 He Bodies Not Reportable 07/30/17 05:40 Hem Pathologist Commnt No 07/30/17 05:40 PT 57.1 Sec. (12.2-14.9) H 07/30/17 Unknown INR 5.87 (0.87-1.13) H* 07/30/17 Unknown APTT 62.8 Sec. (24.2-36.6) H* 07/30/17 16:55 Fibrinogen 651 mg/dl (211-480) H 07/30/17 16:55 D-Dimer 1885.58 ng/mlDDU (0-234) H 07/30/17 16:55 POC ABG pH 7.461 (7.35-7.45) H 07/30/17 06:13 ABG pH 7.327 pH Units (7.350-7.450) L 07/29/17 01:41 POC ABG pCO2 33.9 (35-45) L 07/30/17 06:13 ABG pCO2 TNR 07/29/17 01:41 POC ABG pO2 226 (80-105) H 07/30/17 06:13 ABG pO2 TNR 07/29/17 01:41 POC ABG HCO3 24.2 07/30/17 06:13 ABG HCO3 TNR 07/29/17 01:41 POC ABG Total CO2 25 07/30/17 06:13 POC ABG O2 Sat 100 07/30/17 06:13 ABG O2 Saturation TNR 07/29/17 01:41 ABG O2 Content TNR 07/29/17 01:41 POC ABG Base Excess 0 07/30/17 06:13 ABG Base Excess TNR 07/29/17 01:41 ABG Hemoglobin TNR 07/29/17 01:41 ABG Carboxyhemoglobin TNR 07/29/17 01:41 ABG Methemoglobin TNR 07/29/17 01:41 VBG pH 7.327 (7.320-7.420) 07/29/17 01:41 Oxyhemoglobin TNR 07/29/17 01:41 FiO2 50 % 07/30/17 06:13 Sodium 154 mmol/L (137-145) H 07/30/17 15:54 Potassium 3.5 mmol/L (3.6-5.0) L 07/30/17 15:54 Chloride 122.1 mmol/L (98-107) H 07/30/17 15:54 Carbon Dioxide 22 mmol/L (22-30) 07/30/17 15:54 Anion Gap 13 mmol/L 07/30/17 15:54 BUN 15 mg/dL (7-17) 07/30/17 15:54 Creatinine 0.5 mg/dL (0.7-1.2) L 07/30/17 15:54 Estimated GFR > 60 ml/min 07/30/17 15:54 BUN/Creatinine Ratio 30 % 07/30/17 15:54 Glucose 180 mg/dL (65-100) H 07/30/17 15:54 POC Glucose 246 (70-105) H 07/30/17 05:33 Lactic Acid 2.30 mmol/L (0.7-2.0) H* 07/29/17 10:05 Calcium 7.6 mg/dL (8.4-10.2) L 07/30/17 15:54 Total Bilirubin 0.20 mg/dL (0.1-1.2) 07/29/17 01:41 AST 27 units/L (5-40) 07/29/17 01:41 ALT 55 units/L (7-56) 07/29/17 01:41 Alkaline Phosphatase 109 units/L (35-129) 07/29/17 01:41 Total Creatine Kinase 179 units/L (30-135) H 07/29/17 10:05 CK-MB (CK-2) 3.0 ng/mL (0.0-4.0) 07/29/17 10:05 CK-MB (CK-2) Rel Index 1.6 (0-4) 07/29/17 10:05 Troponin T 0.093 ng/mL (0.00-0.029) H 07/29/17 10:05 Total Protein 6.5 g/dL (6.3-8.2) 07/29/17 01:41 Albumin 2.0 g/dL (3.9-5) L 07/29/17 01:41 Albumin/Globulin Ratio 0.4 % 07/29/17 01:41 Triglycerides 115 mg/dL (2-149) 07/29/17 01:41 Cholesterol 50 mg/dL (50-199) 07/29/17 01:41 LDL Cholesterol Direct 14 mg/dL (50-130) L 07/29/17 01:41 HDL Cholesterol 13 mg/dL (40-59) L 07/29/17 01:41 Cholesterol/HDL Ratio 3.84 % 07/29/17 01:41 Urine Color Yellow (Yellow) 07/29/17 Unknown Urine Turbidity Turbid (Clear) 07/29/17 Unknown Urine pH 5.0 (5.0-7.0) 07/29/17 Unknown Ur Specific [place] 1.024 (1.003-1.030) 07/29/17 Unknown Urine Protein 30 mg/dl mg/dL (Negative) 07/29/17 Unknown Urine Glucose (UA) >=500 mg/dL (Negative) 07/29/17 Unknown Urine Ketones Neg mg/dL (Negative) 07/29/17 Unknown Urine Blood Lg (Negative) 07/29/17 Unknown Urine Nitrite Neg (Negative) 07/29/17 Unknown Urine Bilirubin Neg (Negative) 07/29/17 Unknown Urine Urobilinogen < 2.0 mg/dL (<2.0) 07/29/17 Unknown Ur Leukocyte Esterase Mod (Negative) 07/29/17 Unknown Urine WBC (Auto) 169.0 /HPF (0.0-6.0) H 07/29/17 Unknown Urine RBC (Auto) > 182.0 /HPF (0.0-6.0) 07/29/17 Unknown U Epithel Cells (Auto) 9.0 /HPF (0-13.0) 07/29/17 Unknown Urine Bacteria (Auto) 4+ /HPF (Negative) 07/29/17 Unknown Urine WBC Clumps 3+ /HPF 07/29/17 Unknown Urine Mucus 1+ /HPF 07/29/17 Unknown Ur Yeast w Hyphae 1+ /HPF 07/29/17 Unknown Urine Yeast (Budding) 3+ /HPF 07/29/17 Unknown Vancomycin Trough 29.7 ug/mL (5.0-20.0) H 07/30/17 16:55
[2017-07-30 18:35] LABS: Anisocytosis 1+; Basophils % (Manual) 0 % (0.0-1.8); Eosinophils % (Manual) 0 % (0.0-4.3); Hypochromasia 1+; Large Platelets 1+; Platelet Estimate Consistent w Auto; Poikilocytosis 1+
[2017-07-30 21:42] LABS: BUN/Creatinine Ratio 26; Blood Urea Nitrogen 13 mg/dL (7-17); Calcium 7.7 mg/dL (8.4-10.2); Hemolysis Index 0
--- NOTE | 2017-07-30 23:39 | Consultation ---
REFERRING PHYSICIAN: Dr. Pedro Michael REASON FOR CONSULTATION: Elevated INR. HISTORY OF PRESENT ILLNESS: The patient is a 71-year-old female with chronic debility including tracheostomy, PEG tube, chronic contractures, chronically depressed mental status, anoxic brain injury, diabetes, hypertension, previous mastectomy, and hysterectomy who presented to the Emergency Room with fever, tachycardia from the senior living. The patient has according to the ER note, had also been on Coumadin and I am not sure what the reasoning of it was. On her old records, it looks like she had atrial fibrillation, which was episodic. The patient; however, during her hospital course, was found to have sepsis with a white count of 21, hemoglobin 9.7, platelets 373,000. Her INR was 5.49 on admission. Coumadin has not been given to her in the last 24 hours and her INR today went up to 5.87. The patient is being treated for decubitus ulcers and possible G-tube infection with multiple antibiotics. Blood cultures and urine cultures have also been drawn. They have been unremarkable so far. Because of coagulopathy, Hematology consult was called. She does not seem to be any active bleeding currently. The patient's hemoglobin has been low, but that according to the old records, this seems to be her baseline between 8.3 and 9.7. The patient's other pertinent labs show her potassium to be 2.6 yesterday, which is improved to 3.2. Her blood sugars have been high at 246. PHYSICAL EXAMINATION: GENERAL: The patient is not awake. There is severe contracture of the body. HEENT: There is a trach present. CHEST: Decreased breath sounds at the bases. CARDIOVASCULAR: Irregular. ABDOMEN: Soft. EXTREMITIES: Decubitus ulcers. LABORATORY DATA: As mentioned in history of present illness. ASSESSMENT: Elevated INR secondary to Coumadin along with sepsis without any active bleeding. PLAN: At this time, monitor INR. Check DIC profile. If she starts having bleeding or INR goes higher tomorrow, may need to give her FFPs. Conservative management suggested. Agree with treating her infection. JOB# [id number] TAIWO/JENNIFER
[2017-07-31] MEDS: HumaLOG SUB-Q SCH ×4 (01:09→18:08)
[2017-07-31] MEDS: ZOSYN/NS 3.375GM/50ML 3.375 GM/50 ML BAG IV SCH ×3 (02:27→18:08)
[2017-07-31] MEDS: NACL 0.45% 1000 ML 1,000 ML IV SCH (02:30)
[2017-07-31] MEDS: VANCOMYCIN/0.45 NS 1 GM/250 ML 1 GM/250 ML BAG IV SCH ×2 (03:28→17:07)
[2017-07-31 04:41] LABS: Basophils % (Auto) 0.2 % (0.0-1.8); Eosinophils % (Auto) 0.2 % (0.0-4.3); Hematocrit 23.9 % (30.3-42.9); Hemoglobin 7.5 gm/dl (10.1-14.3); Lymphocytes # (Auto) 1.6 K/mm3 (1.2-5.4); Lymphocytes % (Auto) 9.1 % (13.4-35.0); Mean Corpuscular HGB Conc 32 % (30-34); Mean Corpuscular Volume 76 fl (79-97); Monocytes # (Auto) 0.4 K/mm3 (0.0-0.8); Monocytes % (Auto) 2.4 % (0.0-7.3); Platelet Count 246 K/mm3 (140-440); Red Blood Count 3.14 M/mm3 (3.65-5.03); Red Cell Distribution Width 18.3 % (13.2-15.2)
[2017-07-31 04:50] LABS: INR 3.08 (0.87-1.13)
[2017-07-31 04:51] LABS: Partial Thromboplastin Time 53.6 Sec. (24.2-36.6)
[2017-07-31 04:55] LABS: Calcium 7.6 mg/dL (8.4-10.2)
[2017-07-31 05:04] LABS: Mean Corpuscular Hemoglobin 24 pg (28-32)
[2017-07-31 05:21] LABS: BUN/Creatinine Ratio 30; Blood Urea Nitrogen 12 mg/dL (7-17); Hemolysis Index 0
[2017-07-31] MEDS: DUONEB *Not for PRN Use IH SCH ×3 (07:11→20:54)
--- NOTE | 2017-07-31 09:30 | Hem/Onc Progress Note ---
Assessment and Plan INR down to 3. Not sure why the patient was on Coumadin. She is high risk for Coumadin toxicity. Unless there is a active reason for anticoagulation, would hold it. Overall infection improving thus the INR is coming down. Watch for bleeding. CBC stable. Subjective Date of service: 07/31/17 Interval history: No active bleeding. INR has come down. Objective - Exam Narrative Exam: No active bleeding. Overall contracted posture. - Constitutional Vitals: Last Vital Signs Temp 98.5 F 07/31/17 08:00 Pulse 84 07/31/17 07:32 Resp 22 07/31/17 07:32 BP 96/51 07/31/17 07:32 Pulse Ox 100 07/31/17 07:32 - Labs Lab Results: Laboratory Results - last 24 hr 07/30/17 07/30/17 07/30/17 05:40 05:40 15:54 WBC RBC Hgb Hct MCV MCH MCHC RDW Plt Count Lymph % (Auto) [place] % (Auto) Eos % (Auto) Baso % (Auto) Lymph # [place] # Eos # Baso # Add Manual Diff Complete Total Counted 100 Seg Neutrophils % Seg Neuts % (Manual) 84.0 H Band Neutrophils % 8.0 Lymphocytes % (Manual) 7.0 L Reactive Lymphs % (Man) 0 Monocytes % (Manual) 1.0 Eosinophils % (Manual) 0 Basophils % (Manual) 0 Metamyelocytes % 0 Myelocytes % 0 Promyelocytes % 0 Blast Cells % 0 Nucleated RBC % Not Reportable Seg Neutrophils # Seg Neutrophils # Man 20.1 H Band Neutrophils # 1.9 Lymphocytes # (Manual) 1.7 Abs React Lymphs (Man) 0.0 Monocytes # (Manual) 0.2 Eosinophils # (Manual) 0.0 Basophils # (Manual) 0.0 Metamyelocytes # 0.0 Myelocytes # 0.0 Promyelocytes # 0.0 Blast Cells # 0.0 WBC Morphology Not Reportable Hypersegmented Neuts Not Reportable Hyposegmented Neuts Not Reportable Hypogranular Neuts Not Reportable Smudge Cells Not Reportable Toxic Granulation Not Reportable Toxic Vacuolation Not Reportable Dohle Bodies Not Reportable Pelger-Huet Anomaly Not Reportable Zach Rods Not Reportable Platelet Estimate Not Reportable Clumped Platelets Not Reportable Plt Clumps, EDTA Not Reportable Large Platelets Not Reportable Giant Platelets Not Reportable Platelet Satelliting Not Reportable Plt Morphology Comment Not Reportable RBC Morphology Not Reportable Dimorphic RBCs Not Reportable Polychromasia Not Reportable Hypochromasia 1+ Poikilocytosis Not Reportable Anisocytosis Not Reportable Microcytosis Not Reportable Macrocytosis Not Reportable Spherocytes Not Reportable Pappenheimer Bodies Not Reportable Sickle Cells Not Reportable Target Cells Not Reportable Tear Drop Cells Not Reportable Ovalocytes Not Reportable Helmet Cells Not Reportable Monson-Toyei Bodies Not Reportable [place] Rings Not Reportable [place] Cells Not Reportable Bite Cells Not Reportable Crenated Cell Not Reportable Elliptocytes Not Reportable Acanthocytes (Spur) Not Reportable Rouleaux Not Reportable Hemoglobin C Crystals Not Reportable Schistocytes Not Reportable Malaria parasites Not Reportable He Bodies Not Reportable Hem Pathologist Commnt No PT INR APTT Fibrinogen D-Dimer Sodium 156 H 154 H Potassium 3.2 L D 3.5 L Chloride 117.5 H 122.1 H Carbon Dioxide 23 22 Anion Gap 19 13 BUN 19 H 15 Creatinine 0.6 L 0.5 L Estimated GFR > 60 > 60 BUN/Creatinine Ratio 32 30 Glucose 212 H 180 H Calcium 7.8 L 7.6 L Vancomycin Trough 07/30/17 07/30/17 07/30/17 16:52 16:55 16:55 WBC 22.9 H RBC 3.29 L Hgb 7.8 L Hct 25.1 L MCV 76 L MCH 24 L MCHC 31 RDW 18.2 H Plt Count 289 Lymph % (Auto) [place] % (Auto) Eos % (Auto) Baso % (Auto) Lymph # [place] # Eos # Baso # Add Manual Diff Complete Total Counted 100 Seg Neutrophils % Parts Counter Salesperson Seg Neuts % (Manual) 89.0 H Band Neutrophils % 0 Lymphocytes % (Manual) 7.0 L Reactive Lymphs % (Man) 0 Monocytes % (Manual) 4.0 Eosinophils % (Manual) 0 Basophils % (Manual) 0 Metamyelocytes % 0 Myelocytes % 0 Promyelocytes % 0 Blast Cells % 0 Nucleated RBC % Not Reportable Seg Neutrophils # Seg Neutrophils # Man 20.4 H Band Neutrophils # 0.0 Lymphocytes # (Manual) 1.6 Abs React Lymphs (Man) 0.0 Monocytes # (Manual) 0.9 H Eosinophils # (Manual) 0.0 Basophils # (Manual) 0.0 Metamyelocytes # 0.0 Myelocytes # 0.0 Promyelocytes # 0.0 Blast Cells # 0.0 WBC Morphology Not Reportable Hypersegmented Neuts Not Reportable Hyposegmented Neuts Not Reportable Hypogranular Neuts Not Reportable Smudge Cells Not Reportable Toxic Granulation Not Reportable Toxic Vacuolation Not Reportable Dohle Bodies Not Reportable Pelger-Huet Anomaly Not Reportable Zach Rods Not Reportable Platelet Estimate Consistent w auto Clumped Platelets Not Reportable Plt Clumps, EDTA Not Reportable Large Platelets 1+ Giant Platelets Not Reportable Platelet Satelliting Not Reportable Plt Morphology Comment Not Reportable RBC Morphology Not Reportable Dimorphic RBCs Not Reportable Polychromasia Not Reportable Hypochromasia 1+ Poikilocytosis 1+ Anisocytosis 1+ Microcytosis Not Reportable Macrocytosis Not Reportable Spherocytes Not Reportable Pappenheimer Bodies Not Reportable Sickle Cells Not Reportable Target Cells Not Reportable Tear Drop Cells Not Reportable Ovalocytes Not Reportable Helmet Cells Not Reportable Monson-Toyei Bodies Not Reportable [place] Rings Not Reportable [place] Cells Not Reportable Bite Cells Not Reportable Crenated Cell Not Reportable Elliptocytes Not Reportable Acanthocytes (Spur) Not Reportable Rouleaux Not Reportable Hemoglobin C Crystals Not Reportable Schistocytes Not Reportable Malaria parasites Not Reportable He Bodies Not Reportable Hem Pathologist Commnt No PT 44.7 H INR 4.33 H APTT 62.8 H* Fibrinogen 651 H D-Dimer 1885.58 H Sodium Potassium Chloride Carbon Dioxide Anion Gap BUN Creatinine Estimated GFR BUN/Creatinine Ratio Glucose Calcium Vancomycin Trough 29.7 H 07/30/17 07/30/17 07/31/17 21:00 Unknown 04:00 WBC RBC Hgb Hct MCV MCH MCHC RDW Plt Count Lymph % (Auto) [place] % (Auto) Eos % (Auto) Baso % (Auto) Lymph # [place] # Eos # Baso # Add Manual Diff Total Counted Seg Neutrophils % Seg Neuts % (Manual) Band Neutrophils % Lymphocytes % (Manual) Reactive Lymphs % (Man) Monocytes % (Manual) Eosinophils % (Manual) Basophils % (Manual) Metamyelocytes % Myelocytes % Promyelocytes % Blast Cells % Nucleated RBC % Seg Neutrophils # Seg Neutrophils # Man Band Neutrophils # Lymphocytes # (Manual) Abs React Lymphs (Man) Monocytes # (Manual) Eosinophils # (Manual) Basophils # (Manual) Metamyelocytes # Myelocytes # Promyelocytes # Blast Cells # WBC Morphology Hypersegmented Neuts Hyposegmented Neuts Hypogranular Neuts Smudge Cells Toxic Granulation Toxic Vacuolation Dohle Bodies Pelger-Huet Anomaly Zach Rods Platelet Estimate Clumped Platelets Plt Clumps, EDTA Large Platelets Giant Platelets Platelet Satelliting Plt Morphology Comment RBC Morphology Dimorphic RBCs Polychromasia Hypochromasia Poikilocytosis Anisocytosis Microcytosis Macrocytosis Spherocytes Pappenheimer Bodies Sickle Cells Target Cells Tear Drop Cells Ovalocytes Helmet Cells Monson-Toyei Bodies [place] Rings [place] Cells Bite Cells Crenated Cell Elliptocytes Acanthocytes (Spur) Rouleaux Hemoglobin C Crystals Schistocytes Malaria parasites He Bodies Hem Pathologist Commnt PT 57.1 H 33.9 H INR 5.87 H* 3.08 H APTT 53.6 H Fibrinogen D-Dimer Sodium 150 H Potassium 3.2 L Chloride 114.3 H Carbon Dioxide 23 Anion Gap 16 BUN 13 Creatinine 0.5 L Estimated GFR > 60 BUN/Creatinine Ratio 26 Glucose 167 H Calcium 7.7 L Vancomycin Trough 07/31/17 07/31/17 04:00 04:00 WBC 17.2 H RBC 3.14 L Hgb 7.5 L Hct 23.9 L MCV 76 L MCH 24 L MCHC 32 RDW 18.3 H Plt Count 246 Lymph % (Auto) 9.1 L [place] % (Auto) 2.4 Eos % (Auto) 0.2 Baso % (Auto) 0.2 Lymph # 1.6 [place] # 0.4 Eos # 0.0 Baso # 0.0 Add Manual Diff Total Counted Seg Neutrophils % 88.1 H Seg Neuts % (Manual) Band Neutrophils % Lymphocytes % (Manual) Reactive Lymphs % (Man) Monocytes % (Manual) Eosinophils % (Manual) Basophils % (Manual) Metamyelocytes % Myelocytes % Promyelocytes % Blast Cells % Nucleated RBC % Seg Neutrophils # 15.2 H Seg Neutrophils # Man Band Neutrophils # Lymphocytes # (Manual) Abs React Lymphs (Man) Monocytes # (Manual) Eosinophils # (Manual) Basophils # (Manual) Metamyelocytes # Myelocytes # Promyelocytes # Blast Cells # WBC Morphology Hypersegmented Neuts Hyposegmented Neuts Hypogranular Neuts Smudge Cells Toxic Granulation Toxic Vacuolation Dohle Bodies Pelger-Huet Anomaly Zach Rods Platelet Estimate Clumped Platelets Plt Clumps, EDTA Large Platelets Giant Platelets Platelet Satelliting Plt Morphology Comment RBC Morphology Dimorphic RBCs Polychromasia Hypochromasia Poikilocytosis Anisocytosis Microcytosis Macrocytosis Spherocytes Pappenheimer Bodies Sickle Cells Target Cells Tear Drop Cells Ovalocytes Helmet Cells Monson-Toyei Bodies [place] Rings [place] Cells Bite Cells Crenated Cell Elliptocytes Acanthocytes (Spur) Rouleaux Hemoglobin C Crystals Schistocytes Malaria parasites He Bodies Hem Pathologist Commnt PT INR APTT Fibrinogen D-Dimer Sodium 147 H Potassium 4.0 D Chloride 113.9 H Carbon Dioxide 23 Anion Gap 14 BUN 12 Creatinine 0.4 L Estimated GFR > 60 BUN/Creatinine Ratio 30 Glucose 175 H Calcium 7.6 L Vancomycin Trough
[2017-07-31] MEDS: PEPCID IV SCH ×2 (09:54→21:34)
[2017-07-31] MEDS: ROBINUL PO SCH ×2 (09:54→21:34)
[2017-07-31] MEDS: SODIUM CHLORIDE FLUSH SYRINGE 10 ML IV SCH ×2 (09:55→22:32)
[2017-07-31 11:20] LABS: BUN/Creatinine Ratio 25; Blood Urea Nitrogen 10 mg/dL (7-17); Calcium 7.6 mg/dL (8.4-10.2); Hemolysis Index 0
[2017-07-31] MEDS ORDERED: NACL 0.45% 1000 ML 500 ML IV SCH (12:00)
--- NOTE | 2017-07-31 12:53 | Progress Note ---
Assessment and Plan Sepsis with shock. Coming off pressors, improved Left lower lobe pneumonia. On antibiotics. Cultures are pending Acute on chronic respiratory failure. Improved. Failed weaning trial this morning History of anoxic brain injury, chronic Tracheotomy patient Hypernatremia. Improving. Prior CVP was 6 cm H2O Hypokalemia Recommendations Serial BP monitoring 0.45 or D5W, Riger bolus 500 cc ,increase fluid rate. Asked nurses to keep CVP around 8-12 cm H2O Serial BMP, avoid rapid Na+ drop Measure intake and output. Daily morning sedation vacation and initiate SBT if deemed appropriate DVT prophylaxis PPI prophylaxis Continue current antibiotics and reassess for cultures Need to verify DO NOT RESUSCITATE status with family. Reportedly [facility] Critical care time was 31 minutes of [id number] evaluation and coordination of care Subjective Date of service: 07/31/17 Interval history: On ventilator support, nonresponsive Objective Vital Signs - 12hr 07/31/17 07/31/17 07/31/17 00:51 01:01 01:11 Temperature Pulse Rate 83 79 78 Pulse Rate [ Bilateral] Respiratory 18 18 18 Rate Respiratory Rate [Bilateral ] Blood Pressure 108/58 114/65 114/65 O2 Sat by Pulse 100 100 100 Oximetry O2 Sat by Pulse Oximetry [ Changed] 07/31/17 07/31/17 07/31/17 01:21 01:30 01:41 Temperature Pulse Rate 76 78 76 Pulse Rate [ Bilateral] Respiratory 18 18 18 Rate Respiratory Rate [Bilateral ] Blood Pressure 114/64 116/69 116/69 O2 Sat by Pulse 100 100 100 Oximetry O2 Sat by Pulse Oximetry [ Changed] 07/31/17 07/31/17 07/31/17 01:51 02:01 02:11 Temperature Pulse Rate 87 82 78 Pulse Rate [ Bilateral] Respiratory 18 18 18 Rate Respiratory Rate [Bilateral ] Blood Pressure 118/64 111/60 111/60 O2 Sat by Pulse 100 100 100 Oximetry O2 Sat by Pulse Oximetry [ Changed] 07/31/17 07/31/17 07/31/17 02:21 02:31 02:41 Temperature Pulse Rate 81 79 77 Pulse Rate [ Bilateral] Respiratory 18 18 18 Rate Respiratory Rate [Bilateral ] Blood Pressure 119/67 117/62 117/62 O2 Sat by Pulse 100 100 100 Oximetry O2 Sat by Pulse Oximetry [ Changed] 07/31/17 07/31/1707/31/18 02:51 03:01 03:11 Temperature Pulse Rate 79 79 79 Pulse Rate [ Bilateral] Respiratory 18 18 18 Rate Respiratory Rate [Bilateral ] Blood Pressure 120/62 113/67 113/67 O2 Sat by Pulse 100 100 100 Oximetry O2 Sat by Pulse Oximetry [ Changed] 07/31/17 07/31/17 07/31/17 03:21 03:31 03:41 Temperature Pulse Rate 85 75 78 Pulse Rate [ Bilateral] Respiratory 18 18 18 Rate Respiratory Rate [Bilateral ] Blood Pressure 112/60 110/58 110/58 O2 Sat by Pulse 100 100 100 Oximetry O2 Sat by Pulse Oximetry [ Changed] 07/31/17 07/31/17 07/31/17 03:51 04:00 04:01 Temperature 98.7 F Pulse Rate 77 75 Pulse Rate [ Bilateral] Respiratory 18 18 Rate Respiratory Rate [Bilateral ] Blood Pressure 110/61 119/63 O2 Sat by Pulse 100 100 Oximetry O2 Sat by Pulse Oximetry [ Changed] 07/31/17 07/31/17 07/31/17 04:11 04:21 04:31 Temperature Pulse Rate 92 H 76 76 Pulse Rate [ Bilateral] Respiratory 18 18 18 Rate Respiratory Rate [Bilateral ] Blood Pressure 119/63 119/63 120/69 O2 Sat by Pulse 100 100 100 Oximetry O2 Sat by Pulse Oximetry [ Changed] 07/31/17 07/31/17 07/31/17 04:41 04:51 05:00 Temperature Pulse Rate 92 H 80 75 Pulse Rate [ Bilateral] Respiratory 17 18 18 Rate Respiratory Rate [Bilateral ] Blood Pressure 120/69 120/69 120/69 O2 Sat by Pulse 100 100 100 Oximetry O2 Sat by Pulse Oximetry [ Changed] 07/31/17 07/31/17 07/31/17 05:11 05:21 05:31 Temperature Pulse Rate 71 82 74 Pulse Rate [ Bilateral] Respiratory 17 18 18 Rate Respiratory Rate [Bilateral ] Blood Pressure 97/57 O2 Sat by Pulse 100 100 100 Oximetry O2 Sat by Pulse Oximetry [ Changed] 07/31/17 07/31/17 07/31/17 05:41 05:51 06:01 Temperature Pulse Rate 73 70 69 Pulse Rate [ Bilateral] Respiratory 18 14 14 Rate Respiratory Rate [Bilateral ] Blood Pressure 97/57 97/57 97/50 O2 Sat by Pulse 100 100 100 Oximetry O2 Sat by Pulse Oximetry [ Changed] 07/31/17 07/31/17 07/31/17 06:11 06:21 06:31 Temperature Pulse Rate 75 76 73 Pulse Rate [ Bilateral] Respiratory 14 14 14 Rate Respiratory Rate [Bilateral ] Blood Pressure 97/50 97/50 101/55 O2 Sat by Pulse 100 99 100 Oximetry O2 Sat by Pulse Oximetry [ Changed] 07/31/17 07/31/17 07/31/17 06:41 06:51 07:01 Temperature Pulse Rate 76 80 76 Pulse Rate [ Bilateral] Respiratory 14 14 14 Rate Respiratory Rate [Bilateral ] Blood Pressure 101/55 101/55 106/46 O2 Sat by Pulse 100 100 100 Oximetry O2 Sat by Pulse Oximetry [ Changed] 07/31/17 07/31/17 07/31/17 07:11 07:12 07:21 Temperature Pulse Rate 85 81 80 Pulse Rate [ 83 Bilateral] Respiratory 14 14 Rate Respiratory 14 Rate [Bilateral ] Blood Pressure 106/46 106/46 106/46 O2 Sat by Pulse 100 100 100 Oximetry O2 Sat by Pulse 100 Oximetry [ Changed] 07/31/17 07/31/17 07/31/17 07:25 07:31 07:32 Temperature Pulse Rate 74 84 Pulse Rate [ 84 Bilateral] Respiratory 20 22 Rate Respiratory 22 Rate [Bilateral ] Blood Pressure 96/51 96/51 O2 Sat by Pulse 100 100 Oximetry O2 Sat by Pulse Oximetry [ Changed] 07/31/17 07/31/17 07/31/17 07:41 07:51 08:00 Temperature 98.5 F Pulse Rate 84 84 Pulse Rate [ Bilateral] Respiratory 23 23 Rate Respiratory Rate [Bilateral ] Blood Pressure 96/51 96/51 O2 Sat by Pulse 100 100 Oximetry O2 Sat by Pulse Oximetry [ Changed] 07/31/17 07/31/17 07/31/17 08:01 08:11 08:21 Temperature Pulse Rate 86 82 79 Pulse Rate [ Bilateral] Respiratory 25 H 22 21 Rate Respiratory Rate [Bilateral ] Blood Pressure 91/50 91/50 91/50 O2 Sat by Pulse 100 100 100 Oximetry O2 Sat by Pulse Oximetry [ Changed] 07/31/17 07/31/17 07/31/17 08:30 08:41 08:51 Temperature Pulse Rate 84 98 H 90 Pulse Rate [ Bilateral] Respiratory 23 29 H 23 Rate Respiratory Rate [Bilateral ] Blood Pressure 92/47 92/47 92/47 O2 Sat by Pulse 100 100 100 Oximetry O2 Sat by Pulse Oximetry [ Changed] 07/31/17 07/31/17 07/31/17 09:00 09:11 09:21 Temperature Pulse Rate 90 87 86 Pulse Rate [ Bilateral] Respiratory 25 H 16 17 Rate Respiratory Rate [Bilateral ] Blood Pressure 97/66 97/66 97/66 O2 Sat by Pulse 100 100 100 Oximetry O2 Sat by Pulse Oximetry [ Changed] 07/31/17 07/31/17 07/31/17 09:30 09:41 09:51 Temperature Pulse Rate 83 79 82 Pulse Rate [ Bilateral] Respiratory 16 15 20 Rate Respiratory Rate [Bilateral ] Blood Pressure 109/63 109/63 109/63 O2 Sat by Pulse 100 100 100 Oximetry O2 Sat by Pulse Oximetry [ Changed] 07/31/17 07/31/17 07/31/17 10:00 10:11 10:21 Temperature Pulse Rate 82 82 82 Pulse Rate [ Bilateral] Respiratory 15 14 13 Rate Respiratory Rate [Bilateral ] Blood Pressure 105/63 105/63 105/63 O2 Sat by Pulse 100 98 98 Oximetry O2 Sat by Pulse Oximetry [ Changed] 07/31/17 07/31/17 07/31/17 10:30 10:40 10:41 Temperature Pulse Rate 79 82 80 Pulse Rate [ Bilateral] Respiratory 17 15 Rate Respiratory Rate [Bilateral ] Blood Pressure 107/63 107/63 107/63 O2 Sat by Pulse 100 100 100 Oximetry O2 Sat by Pulse Oximetry [ Changed] 07/31/17 07/31/17 07/31/17 10:51 11:01 12:00 Temperature 98.7 F Pulse Rate 80 82 Pulse Rate [ Bilateral] Respiratory 20 18 Rate Respiratory Rate [Bilateral ] Blood Pressure 107/63 99/61 O2 Sat by Pulse 100 100 Oximetry O2 Sat by Pulse Oximetry [ Changed] Constitutional: no acute distress, other (on ventilator support) Eyes: non-icteric ENT: oropharynx dry Neck: supple, no JVD, bruit (tracheotomy in position no bleeding) Ascultation: Right: rhonchi, Bilateral: clear, diminished breath sounds Cardiovascular: regular rate and rhythm Gastrointestinal: normoactive bowel sounds, non-distended Integumentary: normal Extremities: no cyanosis Neurologic: other (moving more when stimulated) CBC and BMP: 07/31/17 04:00 07/31/17 10:45 ABG, PT/INR, D-dimer: ABG POC ABG pH 7.538 (7.35-7.45) H 07/31/17 05:51 ABG pH 7.327 pH Units (7.350-7.450) L 07/29/17 01:41 POC ABG pCO2 25.6 (35-45) L 07/31/17 05:51 ABG pCO2 TNR 07/29/17 01:41 POC ABG pO2 118 (80-105) H 07/31/17 05:51 ABG pO2 TNR 07/29/17 01:41 POC ABG HCO3 21.8 07/31/17 05:51 POC ABG Total CO2 23 07/31/17 05:51 POC ABG O2 Sat 99 07/31/17 05:51 ABG O2 Saturation TNR 07/29/17 01:41 PT/INR, D-dimer PT 33.9 Sec. (12.2-14.9) H 07/31/17 04:00 INR 3.08 (0.87-1.13) H 07/31/17 04:00 D-Dimer 1885.58 ng/mlDDU (0-234) H 07/30/17 16:55 Abnormal lab findings: Abnormal Labs 07/29/17 07/29/17 07/29/17 01:41 01:41 01:41 WBC 21.0 H RBC Hgb 9.7 L Hct MCV MCH 24 L RDW 19.0 H Lymph % (Auto) Seg Neutrophils % Seg Neuts % (Manual) 77.0 H Lymphocytes % (Manual) 4.5 L Nucleated RBC % 1.0 H Seg Neutrophils # Seg Neutrophils # Man 16.2 H Lymphocytes # (Manual) 0.9 L Monocytes # (Manual) PT 54.1 H INR 5.49 H* APTT 55.7 H Fibrinogen D-Dimer POC ABG pH ABG pH POC ABG pCO2 POC ABG pO2 Sodium Potassium Chloride BUN Creatinine Glucose POC Glucose Lactic Acid 9.30 H* Calcium Total Creatine Kinase Troponin T Albumin LDL Cholesterol Direct HDL Cholesterol Urine WBC (Auto) Vancomycin Trough 07/29/17 07/29/17 07/29/17 01:41 01:41 02:45 WBC RBC Hgb Hct MCV MCH RDW Lymph % (Auto) Seg Neutrophils % Seg Neuts % (Manual) Lymphocytes % (Manual) Nucleated RBC % Seg Neutrophils # Seg Neutrophils # Man Lymphocytes # (Manual) Monocytes # (Manual) PT INR APTT Fibrinogen D-Dimer POC ABG pH ABG pH 7.327 L POC ABG pCO2 32.9 L POC ABG pO2 74 L Sodium 154 H Potassium Chloride 109.8 H BUN 43 H Creatinine 1.3 H Glucose 682 H* POC Glucose Lactic Acid Calcium Total Creatine Kinase Troponin T 0.209 H* Albumin 2.0 L LDL Cholesterol Direct 14 L HDL Cholesterol 13 L Urine WBC (Auto) Vancomycin Trough 07/29/17 07/29/17 07/29/17 03:19 04:11 04:11 WBC RBC Hgb Hct MCV MCH RDW Lymph % (Auto) Seg Neutrophils % Seg Neuts % (Manual) Lymphocytes % (Manual) Nucleated RBC % Seg Neutrophils # Seg Neutrophils # Man Lymphocytes # (Manual) Monocytes # (Manual) PT INR APTT Fibrinogen D-Dimer POC ABG pH ABG pH POC ABG pCO2 POC ABG pO2 Sodium Potassium Chloride BUN Creatinine Glucose POC Glucose Lactic Acid 8.30 H* 7.50 H* Calcium Total Creatine Kinase Troponin T 0.169 H* Albumin LDL Cholesterol Direct HDL Cholesterol Urine WBC (Auto) Vancomycin Trough 07/29/17 07/29/17 07/29/17 07:50 07:50 09:46 WBC RBC Hgb Hct MCV MCH RDW Lymph % (Auto) Seg Neutrophils % Seg Neuts % (Manual) Lymphocytes % (Manual) Nucleated RBC % Seg Neutrophils # Seg Neutrophils # Man Lymphocytes # (Manual) Monocytes # (Manual) PT INR APTT Fibrinogen D-Dimer POC ABG pH ABG pH POC ABG pCO2 POC ABG pO2 Sodium Potassium Chloride BUN Creatinine Glucose POC Glucose 380 H Lactic Acid 3.30 H* Calcium Total Creatine Kinase 172 H Troponin T 0.111 H* D Albumin LDL Cholesterol Direct HDL Cholesterol Urine WBC (Auto) Vancomycin Trough 07/29/17 07/29/17 07/29/17 10:05 10:05 12:45 WBC RBC Hgb Hct MCV MCH RDW Lymph % (Auto) Seg Neutrophils % Seg Neuts % (Manual) Lymphocytes % (Manual) Nucleated RBC % Seg Neutrophils # Seg Neutrophils # Man Lymphocytes # (Manual) Monocytes # (Manual) PT INR APTT Fibrinogen D-Dimer POC ABG pH ABG pH POC ABG pCO2 POC ABG pO2 Sodium Potassium Chloride BUN Creatinine Glucose POC Glucose 404 H Lactic Acid 2.30 H* Calcium Total Creatine Kinase 179 H Troponin T 0.093 H Albumin LDL Cholesterol Direct HDL Cholesterol Urine WBC (Auto) Vancomycin Trough 07/29/17 07/29/17 07/29/17 17:32 19:23 Unknown WBC RBC Hgb Hct MCV MCH RDW Lymph % (Auto) Seg Neutrophils % Seg Neuts % (Manual) Lymphocytes % (Manual) Nucleated RBC % Seg Neutrophils # Seg Neutrophils # Man Lymphocytes # (Manual) Monocytes # (Manual) PT INR APTT Fibrinogen D-Dimer POC ABG pH ABG pH POC ABG pCO2 POC ABG pO2 Sodium 156 H Potassium 2.6 L* D Chloride 119.9 H BUN 25 H Creatinine Glucose 275 H POC Glucose 343 H Lactic Acid Calcium 7.7 L Total Creatine Kinase Troponin T Albumin LDL Cholesterol Direct HDL Cholesterol Urine WBC (Auto) 169.0 H Vancomycin Trough 07/30/17 07/30/17 07/30/17 00:02 05:33 05:40 WBC 23.9 H RBC 3.51 L Hgb 8.3 L Hct 26.8 L MCV 77 L MCH 24 L RDW 18.3 H Lymph % (Auto) Seg Neutrophils % Seg Neuts % (Manual) 84.0 H Lymphocytes % (Manual) 7.0 L Nucleated RBC % Seg Neutrophils # Seg Neutrophils # Man 20.1 H Lymphocytes # (Manual) Monocytes # (Manual) PT INR APTT Fibrinogen D-Dimer POC ABG pH ABG pH POC ABG pCO2 POC ABG pO2 Sodium Potassium Chloride BUN Creatinine Glucose POC Glucose 186 H 246 H Lactic Acid Calcium Total Creatine Kinase Troponin T Albumin LDL Cholesterol Direct HDL Cholesterol Urine WBC (Auto) Vancomycin Trough 07/30/17 07/30/17 07/30/17 05:40 06:13 11:53 WBC RBC Hgb Hct MCV MCH RDW Lymph % (Auto) Seg Neutrophils % Seg Neuts % (Manual) Lymphocytes % (Manual) Nucleated RBC % Seg Neutrophils # Seg Neutrophils # Man Lymphocytes # (Manual) Monocytes # (Manual) PT INR APTT Fibrinogen D-Dimer POC ABG pH 7.461 H ABG pH POC ABG pCO2 33.9 L POC ABG pO2 226 H Sodium 156 H Potassium 3.2 L D Chloride 117.5 H BUN 19 H Creatinine 0.6 L Glucose 212 H POC Glucose 166 H Lactic Acid Calcium 7.8 L Total Creatine Kinase Troponin T Albumin LDL Cholesterol Direct HDL Cholesterol Urine WBC (Auto) Vancomycin Trough 07/30/17 07/30/17 07/30/17 15:54 16:52 16:55 WBC 22.9 H RBC 3.29 L Hgb 7.8 L Hct 25.1 L MCV 76 L MCH 24 L RDW 18.2 H Lymph % (Auto) Seg Neutrophils % Seg Neuts % (Manual) 89.0 H Lymphocytes % (Manual) 7.0 L Nucleated RBC % Seg Neutrophils # Seg Neutrophils # Man 20.4 H Lymphocytes # (Manual) Monocytes # (Manual) 0.9 H PT INR APTT Fibrinogen D-Dimer POC ABG pH ABG pH POC ABG pCO2 POC ABG pO2 Sodium 154 H Potassium 3.5 L Chloride 122.1 H BUN Creatinine 0.5 L Glucose 180 H POC Glucose Lactic Acid Calcium 7.6 L Total Creatine Kinase Troponin T Albumin LDL Cholesterol Direct HDL Cholesterol Urine WBC (Auto) Vancomycin Trough 29.7 H 07/30/17 07/30/17 07/30/17 16:55 17:06 21:00 WBC RBC Hgb Hct MCV MCH RDW Lymph % (Auto) Seg Neutrophils % Seg Neuts % (Manual) Lymphocytes % (Manual) Nucleated RBC % Seg Neutrophils # Seg Neutrophils # Man Lymphocytes # (Manual) Monocytes # (Manual) PT 44.7 H INR 4.33 H APTT 62.8 H* Fibrinogen 651 H D-Dimer 1885.58 H POC ABG pH ABG pH POC ABG pCO2 POC ABG pO2 Sodium 150 H Potassium 3.2 L Chloride 114.3 H BUN Creatinine 0.5 L Glucose 167 H POC Glucose 213 H Lactic Acid Calcium 7.7 L Total Creatine Kinase Troponin T Albumin LDL Cholesterol Direct HDL Cholesterol Urine WBC (Auto) Vancomycin Trough 07/30/17 07/31/17 07/31/17 Unknown 00:29 04:00 WBC RBC Hgb Hct MCV MCH RDW Lymph % (Auto) Seg Neutrophils % Seg Neuts % (Manual) Lymphocytes % (Manual) Nucleated RBC % Seg Neutrophils # Seg Neutrophils # Man Lymphocytes # (Manual) Monocytes # (Manual) PT 57.1 H 33.9 H INR 5.87 H* 3.08 H APTT 53.6 H Fibrinogen D-Dimer POC ABG pH ABG pH POC ABG pCO2 POC ABG pO2 Sodium Potassium Chloride BUN Creatinine Glucose POC Glucose 198 H Lactic Acid Calcium Total Creatine Kinase Troponin T Albumin LDL Cholesterol Direct HDL Cholesterol Urine WBC (Auto) Vancomycin Trough 07/31/17 07/31/17 07/31/17 04:00 04:00 05:51 WBC 17.2 H RBC 3.14 L Hgb 7.5 L Hct 23.9 L MCV 76 L MCH 24 L RDW 18.3 H Lymph % (Auto) 9.1 L Seg Neutrophils % 88.1 H Seg Neuts % (Manual) Lymphocytes % (Manual) Nucleated RBC % Seg Neutrophils # 15.2 H Seg Neutrophils # Man Lymphocytes # (Manual) Monocytes # (Manual) PT INR APTT Fibrinogen D-Dimer POC ABG pH 7.538 H ABG pH POC ABG pCO2 25.6 L POC ABG pO2 118 H Sodium 147 H Potassium Chloride 113.9 H BUN Creatinine 0.4 L Glucose 175 H POC Glucose Lactic Acid Calcium 7.6 L Total Creatine Kinase Troponin T Albumin LDL Cholesterol Direct HDL Cholesterol Urine WBC (Auto) Vancomycin Trough 07/31/17 07/31/17 07/31/17 05:51 10:45 11:25 WBC RBC Hgb Hct MCV MCH RDW Lymph % (Auto) Seg Neutrophils % Seg Neuts % (Manual) Lymphocytes % (Manual) Nucleated RBC % Seg Neutrophils # Seg Neutrophils # Man Lymphocytes # (Manual) Monocytes # (Manual) PT INR APTT Fibrinogen D-Dimer POC ABG pH ABG pH POC ABG pCO2 POC ABG pO2 Sodium Potassium 3.3 L Chloride 108.4 H BUN Creatinine 0.4 L Glucose 139 H POC Glucose 176 H 147 H Lactic Acid Calcium 7.6 L Total Creatine Kinase Troponin T Albumin LDL Cholesterol Direct HDL Cholesterol Urine WBC (Auto) Vancomycin Trough
--- NOTE | 2017-07-31 15:30 | Progress Note ---
Assessment and Plan Assessment and plan: Septic shock - Patient is managed according to sepsis protocol, IV antibiotics, fluids - Patient is off pressors now Pneumonia - continue IV antibiotics - Blood culture no growth so far Respiratory failure on trach and mechanical ventilation -Pulmonary is following - Trach - Failed weaning of mechanical ventilation Anoxic brain injury, patient is on PEG and trach chronically Coumadin toxicity -INR is dropping down to 3.3 morning - hematology oncology consulted History of multiple strokes - Patient is bedbound Nutrition - Through PEG tubes, GI consult appreciated Disposition - Continue ICU care History Interval history: patient was seen and evaluated this morning, patient is comatose, on PEG and trach, on MV. Hospitalist Physical - Physical exam Narrative exam: Patient is comatose, on PEG and trach, on mechanical ventilation. Vital signs as documented. Head exam is unremarkable. No scleral icterus . Neck is without jugular venous distension, thyromegaly, or carotid bruits. Lungs are clear to auscultation. Cardiac exam reveals regular rate and Rhythm. First and second heart sounds normal. No murmurs, rubs or gallops. Abdominal exam reveals normal bowel sounds, no masses, no organomegaly and no aortic enlargement. Extremities contracted, decubitus ulcer. 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 - Constitutional Vitals: Temp Pulse Resp BP Pulse Ox 98.7 F 83 22 111/69 100 07/31/17 12:00 07/31/17 15:00 07/31/17 15:00 07/31/17 15:00 07/31/17 15:00 Results - Labs CBC & Chem 7: 07/31/17 04:00 07/31/17 10:45 Labs: Laboratory Last Values WBC 17.2 K/mm3 (4.5-11.0) H 07/31/17 04:00 RBC 3.14 M/mm3 (3.65-5.03) L 07/31/17 04:00 Hgb 7.5 gm/dl (10.1-14.3) L 07/31/17 04:00 Hct 23.9 % (30.3-42.9) L 07/31/17 04:00 MCV 76 fl (79-97) L 07/31/17 04:00 MCH 24 pg (28-32) L 07/31/17 04:00 MCHC 32 % (30-34) 07/31/17 04:00 RDW 18.3 % (13.2-15.2) H 07/31/17 04:00 Plt Count 246 K/mm3 (140-440) 07/31/17 04:00 Lymph % (Auto) 9.1 % (13.4-35.0) L 07/31/17 04:00 [place] % (Auto) 2.4 % (0.0-7.3) 07/31/17 04:00 Eos % (Auto) 0.2 % (0.0-4.3) 07/31/17 04:00 Baso % (Auto) 0.2 % (0.0-1.8) 07/31/17 04:00 Lymph # 1.6 K/mm3 (1.2-5.4) 07/31/17 04:00 [place] # 0.4 K/mm3 (0.0-0.8) 07/31/17 04:00 Eos # 0.0 K/mm3 (0.0-0.4) 07/31/17 04:00 Baso # 0.0 K/mm3 (0.0-0.1) 07/31/17 04:00 Add Manual Diff Complete 07/30/17 16:52 Total Counted 100 07/30/17 16:52 Seg Neutrophils % 88.1 % (40.0-70.0) H 07/31/17 04:00 Seg Neuts % (Manual) 89.0 % (40.0-70.0) H 07/30/17 16:52 Band Neutrophils % 0 % 07/30/17 16:52 Lymphocytes % (Manual) 7.0 % (13.4-35.0) L 07/30/17 16:52 Reactive Lymphs % (Man) 0 % 07/30/17 16:52 Monocytes % (Manual) 4.0 % (0.0-7.3) 07/30/17 16:52 Eosinophils % (Manual) 0 % (0.0-4.3) 07/30/17 16:52 Basophils % (Manual) 0 % (0.0-1.8) 07/30/17 16:52 Metamyelocytes % 0 % 07/30/17 16:52 Myelocytes % 0 % 07/30/17 16:52 Promyelocytes % 0 % 07/30/17 16:52 Blast Cells % 0 % 07/30/17 16:52 Nucleated RBC % Not Reportable 07/30/17 16:52 Seg Neutrophils # 15.2 K/mm3 (1.8-7.7) H 07/31/17 04:00 Seg Neutrophils # Man 20.4 K/mm3 (1.8-7.7) H 07/30/17 16:52 Band Neutrophils # 0.0 K/mm3 07/30/17 16:52 Lymphocytes # (Manual) 1.6 K/mm3 (1.2-5.4) 07/30/17 16:52 Abs React Lymphs (Man) 0.0 K/mm3 07/30/17 16:52 Monocytes # (Manual) 0.9 K/mm3 (0.0-0.8) H 07/30/17 16:52 Eosinophils # (Manual) 0.0 K/mm3 (0.0-0.4) 07/30/17 16:52 Basophils # (Manual) 0.0 K/mm3 (0.0-0.1) 07/30/17 16:52 Metamyelocytes # 0.0 K/mm3 07/30/17 16:52 Myelocytes # 0.0 K/mm3 07/30/17 16:52 Promyelocytes # 0.0 K/mm3 07/30/17 16:52 Blast Cells # 0.0 K/mm3 07/30/17 16:52 WBC Morphology Not Reportable 07/30/17 16:52 Hypersegmented Neuts Not Reportable 07/30/17 16:52 Hyposegmented Neuts Not Reportable 07/30/17 16:52 Hypogranular Neuts Not Reportable 07/30/17 16:52 Smudge Cells Not Reportable 07/30/17 16:52 Toxic Granulation Not Reportable 07/30/17 16:52 Toxic Vacuolation Not Reportable 07/30/17 16:52 Dohle Bodies Not Reportable 07/30/17 16:52 Pelger-Huet Anomaly Not Reportable 07/30/17 16:52 Zach Rods Not Reportable 07/30/17 16:52 Platelet Estimate Consistent w auto 07/30/17 16:52 Clumped Platelets Not Reportable 07/30/17 16:52 Plt Clumps, EDTA Not Reportable 07/30/17 16:52 Large Platelets 1+ 07/30/17 16:52 Giant Platelets Not Reportable 07/30/17 16:52 Platelet Satelliting Not Reportable 07/30/17 16:52 Plt Morphology Comment Not Reportable 07/30/17 16:52 RBC Morphology Not Reportable 07/30/17 16:52 Dimorphic RBCs Not Reportable 07/30/17 16:52 Polychromasia Not Reportable 07/30/17 16:52 Hypochromasia 1+ 07/30/17 16:52 Poikilocytosis 1+ 07/30/17 16:52 Anisocytosis 1+ 07/30/17 16:52 Microcytosis Not Reportable 07/30/17 16:52 Macrocytosis Not Reportable 07/30/17 16:52 Spherocytes Not Reportable 07/30/17 16:52 Pappenheimer Bodies Not Reportable 07/30/17 16:52 Sickle Cells Not Reportable 07/30/17 16:52 Target Cells Not Reportable 07/30/17 16:52 Tear Drop Cells Not Reportable 07/30/17 16:52 Ovalocytes Not Reportable 07/30/17 16:52 Helmet Cells Not Reportable 07/30/17 16:52 [place] Bodies Not Reportable 07/30/17 16:52 [place] Rings Not Reportable 07/30/17 16:52 Carnation Cells Not Reportable 07/30/17 16:52 Bite Cells Not Reportable 07/30/17 16:52 Crenated Cell Not Reportable 07/30/17 16:52 Elliptocytes Not Reportable 07/30/17 16:52 Acanthocytes (Spur) Not Reportable 07/30/17 16:52 Rouleaux Not Reportable 07/30/17 16:52 Hemoglobin C Crystals Not Reportable 07/30/17 16:52 Schistocytes Not Reportable 07/30/17 16:52 Malaria parasites Not Reportable 07/30/17 16:52 He Bodies Not Reportable 07/30/17 16:52 Hem Pathologist Commnt No 07/30/17 16:52 PT 33.9 Sec. (12.2-14.9) H 07/31/17 04:00 INR 3.08 (0.87-1.13) H 07/31/17 04:00 APTT 53.6 Sec. (24.2-36.6) H 07/31/17 04:00 Fibrinogen 651 mg/dl (211-480) H 07/30/17 16:55 D-Dimer 1885.58 ng/mlDDU (0-234) H 07/30/17 16:55 POC ABG pH 7.538 (7.35-7.45) H 07/31/17 05:51 ABG pH 7.327 pH Units (7.350-7.450) L 07/29/17 01:41 POC ABG pCO2 25.6 (35-45) L 07/31/17 05:51 ABG pCO2 TNR 07/29/17 01:41 POC ABG pO2 118 (80-105) H 07/31/17 05:51 ABG pO2 TNR 07/29/17 01:41 POC ABG HCO3 21.8 07/31/17 05:51 ABG HCO3 TNR 07/29/17 01:41 POC ABG Total CO2 23 07/31/17 05:51 POC ABG O2 Sat 99 07/31/17 05:51 ABG O2 Saturation TNR 07/29/17 01:41 ABG O2 Content TNR 07/29/17 01:41 POC ABG Base Excess -1 07/31/17 05:51 ABG Base Excess TNR 07/29/17 01:41 ABG Hemoglobin TNR 07/29/17 01:41 ABG Carboxyhemoglobin TNR 07/29/17 01:41 ABG Methemoglobin TNR 07/29/17 01:41 VBG pH 7.327 (7.320-7.420) 07/29/17 01:41 Oxyhemoglobin TNR 07/29/17 01:41 FiO2 35 % 07/31/17 05:51 Sodium 141 mmol/L (137-145) 07/31/17 10:45 Potassium 3.3 mmol/L (3.6-5.0) L 07/31/17 10:45 Chloride 108.4 mmol/L (98-107) H 07/31/17 10:45 Carbon Dioxide 23 mmol/L (22-30) 07/31/17 10:45 Anion Gap 13 mmol/L 07/31/17 10:45 BUN 10 mg/dL (7-17) 07/31/17 10:45 Creatinine 0.4 mg/dL (0.7-1.2) L 07/31/17 10:45 Estimated GFR > 60 ml/min 07/31/17 10:45 BUN/Creatinine Ratio 25 % 07/31/17 10:45 Glucose 139 mg/dL (65-100) H 07/31/17 10:45 POC Glucose 147 (70-105) H 07/31/17 11:25 Lactic Acid 1.50 mmol/L (0.7-2.0) 07/31/17 10:45 Calcium 7.6 mg/dL (8.4-10.2) L 07/31/17 10:45 Total Bilirubin 0.20 mg/dL (0.1-1.2) 07/29/17 01:41 AST 27 units/L (5-40) 07/29/17 01:41 ALT 55 units/L (7-56) 07/29/17 01:41 Alkaline Phosphatase 109 units/L (35-129) 07/29/17 01:41 Total Creatine Kinase 179 units/L (30-135) H 07/29/17 10:05 CK-MB (CK-2) 3.0 ng/mL (0.0-4.0) 07/29/17 10:05 CK-MB (CK-2) Rel Index 1.6 (0-4) 07/29/17 10:05 Troponin T 0.093 ng/mL (0.00-0.029) H 07/29/17 10:05 Total Protein 6.5 g/dL (6.3-8.2) 07/29/17 01:41 Albumin 2.0 g/dL (3.9-5) L 07/29/17 01:41 Albumin/Globulin Ratio 0.4 % 07/29/17 01:41 Triglycerides 115 mg/dL (2-149) 07/29/17 01:41 Cholesterol 50 mg/dL (50-199) 07/29/17 01:41 LDL Cholesterol Direct 14 mg/dL (50-130) L 07/29/17 01:41 HDL Cholesterol 13 mg/dL (40-59) L 07/29/17 01:41 Cholesterol/HDL Ratio 3.84 % 07/29/17 01:41 Urine Color Yellow (Yellow) 07/29/17 Unknown Urine Turbidity Turbid (Clear) 07/29/17 Unknown Urine pH 5.0 (5.0-7.0) 07/29/17 Unknown Ur Specific [place] 1.024 (1.003-1.030) 07/29/17 Unknown Urine Protein 30 mg/dl mg/dL (Negative) 07/29/17 Unknown Urine Glucose (UA) >=500 mg/dL (Negative) 07/29/17 Unknown Urine Ketones Neg mg/dL (Negative) 07/29/17 Unknown Urine Blood Lg (Negative) 07/29/17 Unknown Urine Nitrite Neg (Negative) 07/29/17 Unknown Urine Bilirubin Neg (Negative) 07/29/17 Unknown Urine Urobilinogen < 2.0 mg/dL (<2.0) 07/29/17 Unknown Ur Leukocyte Esterase Mod (Negative) 07/29/17 Unknown Urine WBC (Auto) 169.0 /HPF (0.0-6.0) H 07/29/17 Unknown Urine RBC (Auto) > 182.0 /HPF (0.0-6.0) 07/29/17 Unknown U Epithel Cells (Auto) 9.0 /HPF (0-13.0) 07/29/17 Unknown Urine Bacteria (Auto) 4+ /HPF (Negative) 07/29/17 Unknown Urine WBC Clumps 3+ /HPF 07/29/17 Unknown Urine Mucus 1+ /HPF 07/29/17 Unknown Ur Yeast w Hyphae 1+ /HPF 07/29/17 Unknown Urine Yeast (Budding) 3+ /HPF 07/29/17 Unknown Vancomycin Trough 29.7 ug/mL (5.0-20.0) H 07/30/17 16:55
[2017-07-31] MEDS: KCL 20MEQ/100ML 20 MEQ/100 ML BAG IV SCH ×2 (17:17→18:09)
[2017-08-01] MEDS: HumaLOG SUB-Q SCH ×4 (01:44→17:49)
[2017-08-01] MEDS: ZOSYN/NS 3.375GM/50ML 3.375 GM/50 ML BAG IV SCH ×3 (01:44→17:55)
[2017-08-01] MEDS: NACL 0.45% 1000 ML 1,000 ML IV SCH ×2 (02:04→20:29)
[2017-08-01] MEDS: TYLENOL PR PRN ×2 (06:02→20:11)
[2017-08-01] MEDS: VANCOMYCIN/0.45 NS 1 GM/250 ML 1 GM/250 ML BAG IV SCH ×2 (06:03→16:47)
[2017-08-01 06:46] LABS: Basophils % (Auto) 0.2 % (0.0-1.8); Eosinophils # (Auto) 0.1 K/mm3 (0.0-0.4); Eosinophils % (Auto) 0.7 % (0.0-4.3); Hematocrit 22.6 % (30.3-42.9); Hemoglobin 7.1 gm/dl (10.1-14.3); Lymphocytes # (Auto) 1.5 K/mm3 (1.2-5.4); Lymphocytes % (Auto) 12.8 % (13.4-35.0); Mean Corpuscular HGB Conc 32 % (30-34); Mean Corpuscular Volume 75 fl (79-97); Monocytes # (Auto) 0.4 K/mm3 (0.0-0.8); Monocytes % (Auto) 3.8 % (0.0-7.3); Platelet Count 234 K/mm3 (140-440); Red Cell Distribution Width 18.4 % (13.2-15.2)
[2017-08-01 06:50] LABS: Mean Corpuscular Hemoglobin 24 pg (28-32)
[2017-08-01 07:03] LABS: BUN/Creatinine Ratio 23; Blood Urea Nitrogen 9 mg/dL (7-17); Calcium 7.7 mg/dL (8.4-10.2); Hemolysis Index 0
[2017-08-01] MEDS: DUONEB *Not for PRN Use IH SCH ×3 (09:07→20:08)
[2017-08-01] MEDS: PEPCID IV SCH ×2 (09:18→22:00)
[2017-08-01] MEDS: ROBINUL PO SCH ×2 (09:19→22:00)
[2017-08-01] MEDS: SODIUM CHLORIDE FLUSH SYRINGE 10 ML IV SCH ×2 (09:20→22:00)
--- NOTE | 2017-08-01 11:34 | Progress Note ---
Assessment and Plan Sepsis with shock. Coming off pressors, improved Left lower lobe pneumonia with Pseudomonas resistant to quinolones On antibiotics/Zosyn. Acute on chronic respiratory failure. Improved. History of anoxic brain injury, chronic Tracheotomy patient Hypernatremia. Improving. Prior CVP was 6 cm H2O Hypokalemia Recommendations Serial BP monitoring CPAP trial today Serial BMP, avoid rapid Na+ drop Measure intake and output. Daily morning sedation vacation and initiate SBT if deemed appropriate DVT prophylaxis PPI prophylaxis Continue current antibiotics Zosyn and vancomycin. Need to verify DO NOT RESUSCITATE status with family. [facility] Total critical care time 31 minutes Subjective Date of service: 08/01/17 Interval history: Patient opens eyes. Has tracheostomy, currently on mechanical ventilator Objective Vital Signs - 12hr 07/31/17 07/31/17 07/31/17 23:30 23:41 23:51 Temperature Pulse Rate 87 90 83 Respiratory 13 20 18 Rate Blood Pressure 103/52 103/52 103/52 O2 Sat by Pulse 100 99 100 Oximetry O2 Sat by Pulse Oximetry [ Changed] 08/01/17 08/01/17 08/01/17 00:00 00:11 00:20 Temperature 102.5 F H Pulse Rate 80 86 85 Respiratory 10 L 25 H 20 Rate Blood Pressure 98/49 98/49 98/49 O2 Sat by Pulse 100 100 100 Oximetry O2 Sat by Pulse Oximetry [ Changed] 08/01/17 08/01/17 08/01/17 00:30 00:40 00:50 Temperature Pulse Rate 90 85 90 Respiratory 18 21 21 Rate Blood Pressure 89/50 98/49 98/49 O2 Sat by Pulse 100 100 100 Oximetry O2 Sat by Pulse Oximetry [ Changed] 08/01/17 08/01/17 08/01/17 01:00 01:10 01:20 Temperature Pulse Rate 86 90 86 Respiratory 16 15 17 Rate Blood Pressure 89/48 94/52 94/52 O2 Sat by Pulse 100 100 100 Oximetry O2 Sat by Pulse 100 Oximetry [ Changed] 08/01/17 08/01/17 08/01/17 01:30 01:40 01:50 Temperature Pulse Rate 90 85 88 Respiratory 18 12 15 Rate Blood Pressure 85/49 85/49 94/52 O2 Sat by Pulse 99 97 100 Oximetry O2 Sat by Pulse Oximetry [ Changed] 03/08/01/17 08/01/17 02:00 02:10 02:20 Temperature Pulse Rate 85 89 88 Respiratory 17 17 16 Rate Blood Pressure 72/36 72/36 72/36 O2 Sat by Pulse 98 100 Oximetry O2 Sat by Pulse Oximetry [ Changed] 08/01/17 08/01/17 08/01/17 02:30 02:40 02:50 Temperature Pulse Rate 95 H 85 91 H Respiratory 18 15 22 Rate Blood Pressure 72/36 80/38 72/36 O2 Sat by Pulse 100 100 100 Oximetry O2 Sat by Pulse Oximetry [ Changed] 08/01/17 08/01/17 08/01/17 03:00 03:10 03:20 Temperature Pulse Rate 83 79 82 Respiratory 9 L 21 20 Rate Blood Pressure 107/55 107/55 107/55 O2 Sat by Pulse 100 100 100 Oximetry O2 Sat by Pulse Oximetry [ Changed] 08/01/17 08/01/17 08/01/17 03:29 03:30 03:40 Temperature 101.7 F H Pulse Rate 79 80 Respiratory 16 17 Rate Blood Pressure 107/55 89/41 O2 Sat by Pulse 100 100 Oximetry O2 Sat by Pulse Oximetry [ Changed] 08/01/17 08/01/17 08/01/17 03:50 04:00 04:10 Temperature Pulse Rate 78 88 80 Respiratory 19 14 16 Rate Blood Pressure 89/41 89/41 104/49 O2 Sat by Pulse 100 100 100 Oximetry O2 Sat by Pulse Oximetry [ Changed] 08/01/17 08/01/17 08/01/17 04:20 04:30 04:40 Temperature Pulse Rate 80 80 92 H Respiratory 15 14 26 H Rate Blood Pressure 104/49 104/49 109/46 O2 Sat by Pulse 100 100 Oximetry O2 Sat by Pulse Oximetry [ Changed] 08/01/17 08/01/17 08/01/17 04:50 05:00 05:10 Temperature Pulse Rate 80 84 117 H Respiratory 17 21 15 Rate Blood Pressure 107/50 107/50 107/52 O2 Sat by Pulse 96 100 99 Oximetry O2 Sat by Pulse Oximetry [ Changed] 08/01/17 08/01/17 08/01/17 05:20 05:30 05:31 Temperature Pulse Rate 84 83 84 Respiratory 15 13 Rate Blood Pressure 107/52 100/63 99/73 O2 Sat by Pulse 100 100 100 Oximetry O2 Sat by Pulse Oximetry [ Changed] 08/01/17 08/01/17 08/01/17 05:40 05:50 06:00 Temperature Pulse Rate 90 84 78 Respiratory 18 13 12 Rate Blood Pressure 100/63 99/73 98/58 O2 Sat by Pulse 100 100 100 Oximetry O2 Sat by Pulse Oximetry [ Changed] 08/01/17 08/01/17 08/01/17 06:10 06:20 06:30 Temperature Pulse Rate 77 77 73 Respiratory 11 L 15 9 L Rate Blood Pressure 98/58 107/62 112/60 O2 Sat by Pulse 100 100 100 Oximetry O2 Sat by Pulse Oximetry [ Changed] 08/01/17 08/01/17 08/01/17 06:40 06:50 07:00 Temperature Pulse Rate 74 78 83 Respiratory 13 16 13 Rate Blood Pressure 112/60 106/58 106/58 O2 Sat by Pulse 100 100 100 Oximetry O2 Sat by Pulse Oximetry [ Changed] 08/01/17 08/01/17 08/01/17 07:10 07:20 07:30 Temperature Pulse Rate 71 73 74 Respiratory 17 14 15 Rate Blood Pressure 90/57 127/74 127/74 O2 Sat by Pulse 100 100 100 Oximetry O2 Sat by Pulse Oximetry [ Changed] 08/01/17 08/01/17 08/01/17 07:40 07:50 08:00 Temperature 99 F Pulse Rate 73 71 70 Respiratory 14 12 12 Rate Blood Pressure 88/53 92/56 84/51 O2 Sat by Pulse 100 100 99 Oximetry O2 Sat by Pulse Oximetry [ Changed] 08/01/17 08/01/17 08/01/17 08:10 08:20 08:30 Temperature Pulse Rate 64 67 64 Respiratory 18 17 15 Rate Blood Pressure 84/51 100/66 108/58 O2 Sat by Pulse 100 100 100 Oximetry O2 Sat by Pulse Oximetry [ Changed] 08/01/17 08/01/17 08/01/17 08:40 08:50 09:00 Temperature Pulse Rate 62 60 59 L Respiratory 14 12 14 Rate Blood Pressure 108/58 114/62 114/62 O2 Sat by Pulse 100 100 100 Oximetry O2 Sat by Pulse Oximetry [ Changed] 08/01/17 08/01/17 08/01/17 09:01 09:10 09:20 Temperature Pulse Rate 60 56 L 78 Respiratory 14 12 Rate Blood Pressure 114/64 114/64 118/63 O2 Sat by Pulse 100 100 100 Oximetry O2 Sat by Pulse Oximetry [ Changed] 08/01/17 08/01/17 08/01/17 09:30 09:40 09:50 Temperature Pulse Rate 71 92 H Respiratory 20 24 30 H Rate Blood Pressure 118/63 145/74 81/50 O2 Sat by Pulse 100 98 99 Oximetry O2 Sat by Pulse Oximetry [ Changed] 08/01/17 08/01/17 10:00 10:10 Temperature Pulse Rate 78 79 Respiratory 15 26 H Rate Blood Pressure 81/50 121/52 O2 Sat by Pulse 100 99 Oximetry O2 Sat by Pulse Oximetry [ Changed] Constitutional: no acute distress, other (on ventilator support) Eyes: non-icteric ENT: oropharynx dry Neck: supple, no JVD, bruit (tracheotomy in position no bleeding), other ( tracheostomy present) Ascultation: Right: rhonchi, Bilateral: clear, diminished breath sounds Cardiovascular: regular rate and rhythm Gastrointestinal: normoactive bowel sounds, soft, non-tender, non-distended Integumentary: normal Extremities: no cyanosis, other (contraction deformities present. Edema present.) Neurologic: other (moving more when stimulated) CBC and BMP: 08/01/17 06:38 08/01/17 06:38 ABG, PT/INR, D-dimer: ABG POC ABG pH 7.491 (7.35-7.45) H 08/01/17 05:46 ABG pH 7.327 pH Units (7.350-7.450) L 07/29/17 01:41 POC ABG pCO2 26.6 (35-45) L 08/01/17 05:46 ABG pCO2 TNR 07/29/17 01:41 POC ABG pO2 83 (80-105) 08/01/17 05:46 ABG pO2 TNR 07/29/17 01:41 POC ABG HCO3 20.3 08/01/17 05:46 POC ABG Total CO2 21 08/01/17 05:46 POC ABG O2 Sat 97 08/01/17 05:46 ABG O2 Saturation TNR 07/29/17 01:41 PT/INR, D-dimer PT 33.9 Sec. (12.2-14.9) H 07/31/17 04:00 INR 3.08 (0.87-1.13) H 07/31/17 04:00 D-Dimer 1885.58 ng/mlDDU (0-234) H 07/30/17 16:55 Abnormal lab findings: Abnormal Labs 07/29/17 07/29/17 07/29/17 01:41 01:41 01:41 WBC 21.0 H RBC Hgb 9.7 L Hct MCV MCH 24 L RDW 19.0 H Lymph % (Auto) Seg Neutrophils % Seg Neuts % (Manual) 77.0 H Lymphocytes % (Manual) 4.5 L Nucleated RBC % 1.0 H Seg Neutrophils # Seg Neutrophils # Man 16.2 H Lymphocytes # (Manual) 0.9 L Monocytes # (Manual) PT 54.1 H INR 5.49 H* APTT 55.7 H Fibrinogen D-Dimer POC ABG pH ABG pH POC ABG pCO2 POC ABG pO2 Sodium Potassium Chloride BUN Creatinine Glucose POC Glucose Lactic Acid 9.30 H* Calcium Total Creatine Kinase Troponin T Albumin LDL Cholesterol Direct HDL Cholesterol Urine WBC (Auto) Vancomycin Trough 07/29/17 07/29/17 07/29/17 01:41 01:41 02:45 WBC RBC Hgb Hct MCV MCH RDW Lymph % (Auto) Seg Neutrophils % Seg Neuts % (Manual) Lymphocytes % (Manual) Nucleated RBC % Seg Neutrophils # Seg Neutrophils # Man Lymphocytes # (Manual) Monocytes # (Manual) PT INR APTT Fibrinogen D-Dimer POC ABG pH ABG pH 7.327 L POC ABG pCO2 32.9 L POC ABG pO2 74 L Sodium 154 H Potassium Chloride 109.8 H BUN 43 H Creatinine 1.3 H Glucose 682 H* POC Glucose Lactic Acid Calcium Total Creatine Kinase Troponin T 0.209 H* Albumin 2.0 L LDL Cholesterol Direct 14 L HDL Cholesterol 13 L Urine WBC (Auto) Vancomycin Trough 07/29/17 07/29/17 07/29/17 03:19 04:11 04:11 WBC RBC Hgb Hct MCV MCH RDW Lymph % (Auto) Seg Neutrophils % Seg Neuts % (Manual) Lymphocytes % (Manual) Nucleated RBC % Seg Neutrophils # Seg Neutrophils # Man Lymphocytes # (Manual) Monocytes # (Manual) PT INR APTT Fibrinogen D-Dimer POC ABG pH ABG pH POC ABG pCO2 POC ABG pO2 Sodium Potassium Chloride BUN Creatinine Glucose POC Glucose Lactic Acid 8.30 H* 7.50 H* Calcium Total Creatine Kinase Troponin T 0.169 H* Albumin LDL Cholesterol Direct HDL Cholesterol Urine WBC (Auto) Vancomycin Trough 07/29/17 07/29/17 07/29/17 07:50 07:50 09:46 WBC RBC Hgb Hct MCV MCH RDW Lymph % (Auto) Seg Neutrophils % Seg Neuts % (Manual) Lymphocytes % (Manual) Nucleated RBC % Seg Neutrophils # Seg Neutrophils # Man Lymphocytes # (Manual) Monocytes # (Manual) PT INR APTT Fibrinogen D-Dimer POC ABG pH ABG pH POC ABG pCO2 POC ABG pO2 Sodium Potassium Chloride BUN Creatinine Glucose POC Glucose 380 H Lactic Acid 3.30 H* Calcium Total Creatine Kinase 172 H Troponin T 0.111 H* D Albumin LDL Cholesterol Direct HDL Cholesterol Urine WBC (Auto) Vancomycin Trough 07/29/17 07/29/17 07/29/17 10:05 10:05 12:45 WBC RBC Hgb Hct MCV MCH RDW Lymph % (Auto) Seg Neutrophils % Seg Neuts % (Manual) Lymphocytes % (Manual) Nucleated RBC % Seg Neutrophils # Seg Neutrophils # Man Lymphocytes # (Manual) Monocytes # (Manual) PT INR APTT Fibrinogen D-Dimer POC ABG pH ABG pH POC ABG pCO2 POC ABG pO2 Sodium Potassium Chloride BUN Creatinine Glucose POC Glucose 404 H Lactic Acid 2.30 H* Calcium Total Creatine Kinase 179 H Troponin T 0.093 H Albumin LDL Cholesterol Direct HDL Cholesterol Urine WBC (Auto) Vancomycin Trough 07/29/17 07/29/17 07/29/17 17:32 19:23 Unknown WBC RBC Hgb Hct MCV MCH RDW Lymph % (Auto) Seg Neutrophils % Seg Neuts % (Manual) Lymphocytes % (Manual) Nucleated RBC % Seg Neutrophils # Seg Neutrophils # Man Lymphocytes # (Manual) Monocytes # (Manual) PT INR APTT Fibrinogen D-Dimer POC ABG pH ABG pH POC ABG pCO2 POC ABG pO2 Sodium 156 H Potassium 2.6 L* D Chloride 119.9 H BUN 25 H Creatinine Glucose 275 H POC Glucose 343 H Lactic Acid Calcium 7.7 L Total Creatine Kinase Troponin T Albumin LDL Cholesterol Direct HDL Cholesterol Urine WBC (Auto) 169.0 H Vancomycin Trough 07/30/17 07/30/17 07/30/17 00:02 05:33 05:40 WBC 23.9 H RBC 3.51 L Hgb 8.3 L Hct 26.8 L MCV 77 L MCH 24 L RDW 18.3 H Lymph % (Auto) Seg Neutrophils % Seg Neuts % (Manual) 84.0 H Lymphocytes % (Manual) 7.0 L Nucleated RBC % Seg Neutrophils # Seg Neutrophils # Man 20.1 H Lymphocytes # (Manual) Monocytes # (Manual) PT INR APTT Fibrinogen D-Dimer POC ABG pH ABG pH POC ABG pCO2 POC ABG pO2 Sodium Potassium Chloride BUN Creatinine Glucose POC Glucose 186 H 246 H Lactic Acid Calcium Total Creatine Kinase Troponin T Albumin LDL Cholesterol Direct HDL Cholesterol Urine WBC (Auto) Vancomycin Trough 07/30/17 07/30/17 07/30/17 05:40 06:13 11:53 WBC RBC Hgb Hct MCV MCH RDW Lymph % (Auto) Seg Neutrophils % Seg Neuts % (Manual) Lymphocytes % (Manual) Nucleated RBC % Seg Neutrophils # Seg Neutrophils # Man Lymphocytes # (Manual) Monocytes # (Manual) PT INR APTT Fibrinogen D-Dimer POC ABG pH 7.461 H ABG pH POC ABG pCO2 33.9 L POC ABG pO2 226 H Sodium 156 H Potassium 3.2 L D Chloride 117.5 H BUN 19 H Creatinine 0.6 L Glucose 212 H POC Glucose 166 H Lactic Acid Calcium 7.8 L Total Creatine Kinase Troponin T Albumin LDL Cholesterol Direct HDL Cholesterol Urine WBC (Auto) Vancomycin Trough 07/30/17 07/30/17 07/30/17 15:54 16:52 16:55 WBC 22.9 H RBC 3.29 L Hgb 7.8 L Hct 25.1 L MCV 76 L MCH 24 L RDW 18.2 H Lymph % (Auto) Seg Neutrophils % Seg Neuts % (Manual) 89.0 H Lymphocytes % (Manual) 7.0 L Nucleated RBC % Seg Neutrophils # Seg Neutrophils # Man 20.4 H Lymphocytes # (Manual) Monocytes # (Manual) 0.9 H PT INR APTT Fibrinogen D-Dimer POC ABG pH ABG pH POC ABG pCO2 POC ABG pO2 Sodium 154 H Potassium 3.5 L Chloride 122.1 H BUN Creatinine 0.5 L Glucose 180 H POC Glucose Lactic Acid Calcium 7.6 L Total Creatine Kinase Troponin T Albumin LDL Cholesterol Direct HDL Cholesterol Urine WBC (Auto) Vancomycin Trough 29.7 H 07/30/17 07/30/17 07/30/17 16:55 17:06 21:00 WBC RBC Hgb Hct MCV MCH RDW Lymph % (Auto) Seg Neutrophils % Seg Neuts % (Manual) Lymphocytes % (Manual) Nucleated RBC % Seg Neutrophils # Seg Neutrophils # Man Lymphocytes # (Manual) Monocytes # (Manual) PT 44.7 H INR 4.33 H APTT 62.8 H* Fibrinogen 651 H D-Dimer 1885.58 H POC ABG pH ABG pH POC ABG pCO2 POC ABG pO2 Sodium 150 H Potassium 3.2 L Chloride 114.3 H BUN Creatinine 0.5 L Glucose 167 H POC Glucose 213 H Lactic Acid Calcium 7.7 L Total Creatine Kinase Troponin T Albumin LDL Cholesterol Direct HDL Cholesterol Urine WBC (Auto) Vancomycin Trough 07/30/17 07/31/17 07/31/17 Unknown 00:29 04:00 WBC RBC Hgb Hct MCV MCH RDW Lymph % (Auto) Seg Neutrophils % Seg Neuts % (Manual) Lymphocytes % (Manual) Nucleated RBC % Seg Neutrophils # Seg Neutrophils # Man Lymphocytes # (Manual) Monocytes # (Manual) PT 57.1 H 33.9 H INR 5.87 H* 3.08 H APTT 53.6 H Fibrinogen D-Dimer POC ABG pH ABG pH POC ABG pCO2 POC ABG pO2 Sodium Potassium Chloride BUN Creatinine Glucose POC Glucose 198 H Lactic Acid Calcium Total Creatine Kinase Troponin T Albumin LDL Cholesterol Direct HDL Cholesterol Urine WBC (Auto) Vancomycin Trough 07/31/17 07/31/17 07/31/17 04:00 04:00 05:51 WBC 17.2 H RBC 3.14 L Hgb 7.5 L Hct 23.9 L MCV 76 L MCH 24 L RDW 18.3 H Lymph % (Auto) 9.1 L Seg Neutrophils % 88.1 H Seg Neuts % (Manual) Lymphocytes % (Manual) Nucleated RBC % Seg Neutrophils # 15.2 H Seg Neutrophils # Man Lymphocytes # (Manual) Monocytes # (Manual) PT INR APTT Fibrinogen D-Dimer POC ABG pH 7.538 H ABG pH POC ABG pCO2 25.6 L POC ABG pO2 118 H Sodium 147 H Potassium Chloride 113.9 H BUN Creatinine 0.4 L Glucose 175 H POC Glucose Lactic Acid Calcium 7.6 L Total Creatine Kinase Troponin T Albumin LDL Cholesterol Direct HDL Cholesterol Urine WBC (Auto) Vancomycin Trough 07/31/17 07/31/17 07/31/17 05:51 10:45 11:25 WBC RBC Hgb Hct MCV MCH RDW Lymph % (Auto) Seg Neutrophils % Seg Neuts % (Manual) Lymphocytes % (Manual) Nucleated RBC % Seg Neutrophils # Seg Neutrophils # Man Lymphocytes # (Manual) Monocytes # (Manual) PT INR APTT Fibrinogen D-Dimer POC ABG pH ABG pH POC ABG pCO2 POC ABG pO2 Sodium Potassium 3.3 L Chloride 108.4 H BUN Creatinine 0.4 L Glucose 139 H POC Glucose 176 H 147 H Lactic Acid Calcium 7.6 L Total Creatine Kinase Troponin T Albumin LDL Cholesterol Direct HDL Cholesterol Urine WBC (Auto) Vancomycin Trough 07/31/17 08/01/17 08/01/17 17:46 00:01 05:07 WBC RBC Hgb Hct MCV MCH RDW Lymph % (Auto) Seg Neutrophils % Seg Neuts % (Manual) Lymphocytes % (Manual) Nucleated RBC % Seg Neutrophils # Seg Neutrophils # Man Lymphocytes # (Manual) Monocytes # (Manual) PT INR APTT Fibrinogen D-Dimer POC ABG pH ABG pH POC ABG pCO2 POC ABG pO2 Sodium Potassium Chloride BUN Creatinine Glucose POC Glucose 222 H 240 H 195 H Lactic Acid Calcium Total Creatine Kinase Troponin T Albumin LDL Cholesterol Direct HDL Cholesterol Urine WBC (Auto) Vancomycin Trough 08/01/17 08/01/17 08/01/17 05:46 06:38 06:38 WBC 11.7 H RBC 3.00 L Hgb 7.1 L Hct 22.6 L MCV 75 L MCH 24 L RDW 18.4 H Lymph % (Auto) 12.8 L Seg Neutrophils % 82.5 H Seg Neuts % (Manual) Lymphocytes % (Manual) Nucleated RBC % Seg Neutrophils # 9.7 H Seg Neutrophils # Man Lymphocytes # (Manual) Monocytes # (Manual) PT INR APTT Fibrinogen D-Dimer POC ABG pH 7.491 H ABG pH POC ABG pCO2 26.6 L POC ABG pO2 Sodium Potassium Chloride BUN Creatinine 0.4 L Glucose 191 H POC Glucose Lactic Acid Calcium 7.7 L Total Creatine Kinase Troponin T Albumin LDL Cholesterol Direct HDL Cholesterol Urine WBC (Auto) Vancomycin Trough
--- NOTE | 2017-08-01 17:16 | Consultation ---
History of Present Illness - Reason for Consult Consult date: 08/01/17 coagulopathy./co management/my private patient in the custodial. Requesting physician: KARSON WHITE - History of Present Illness Thank you for this consult. patient seen/examined in the ICU. Patient is my private patient in the assisted where she has resided for yrs. I had sent her to the ER, to be evaluated, and had requested that i be notified if she was going to be admitted, and as customary to the ER docs no one notified me, and then some one proceeded to consult another Hem/onc on her case. i have d/w Dr White, and he is taking care of this recurring issue.patient is intubated, has a known hx of pulm dz, on on oxygen via traech at the [facility]. Past History Past Medical History: diabetes, hypertension, other (anoxic brain injury, inability to speak, chornic debility, chronic contractures, chronic decubitus ulcers) Past Surgical History: hysterectomy, mastectomy, Other (s/p trach/PEG) Social history: AND/DNR-allow natural , other (assisted resident) Medications and Allergies Allergies Allergy/AdvReac Type Severity Reaction Status Date / Time No Known Allergies Allergy Unverified 09/30/13 14:18 Home Medications Medication Instructions Recorded Confirmed Last Taken Type Acetaminophen [Acetaminophen ER] 650 mg PO PRN PRN 07/29/17 07/29/17 Unknown History Furosemide [Lasix] 10 mg PO QDAY 07/29/17 07/29/17 Unknown History Glycopyrrolate [Robinul] 1 mg PO BID 07/29/17 07/29/17 Unknown History Ipratropium/Albuterol Sulfate 1 ampul IH Q4HR 07/29/17 07/29/17 Unknown History [DUONEB *Not for PRN Use*] Warfarin [Coumadin] 7.5 mg PO QDAY 07/29/17 07/29/17 Unknown History Warfarin [Coumadin] 10 mg PO 3XW 07/29/17 07/29/17 Unknown History Active Meds: Active Medications Acetaminophen (Tylenol) 650 mg KS Q4H PRN PRN Reason: Pain MILD(1-3)/Fever >100.5/JOLLY Last Admin: 08/01/17 06:02 Dose: 650 mg Albuterol/Ipratropium (Duoneb *Not For Prn Use*) 1 ampul IH TIDRT [facility] Last Admin: 08/01/17 16:05 Dose: 1 ampul Lipase/Protease/Amylase (Pancreaze Dr 10,500 Unit) 1 each FEEDTUBE PRN PRN PRN Reason: For Clogged Feeding Tube Dextrose (D50w (25gm) Syringe) 50 ml IV PRN PRN PRN Reason: Hypoglycemia Famotidine (Pepcid) 20 mg IV BID [facility] Last Admin: 08/01/17 09:18 Dose: 20 mg Glycopyrrolate (Robinul) 1 mg PO BID [facility] Last Admin: 08/01/17 09:19 Dose: 1 mg Piperacillin Sod/Tazobactam Sod (Zosyn/Ns 3.375gm/50ml) 3.375 gm in 50 mls @ 100 mls/hr IV Q8H [facility]; Protocol Last Admin: 08/01/17 09:19 Dose: 100 mls/hr Vancomycin HCl (Vancomycin/0.45 Ns 1 Gm/250 Ml) 1 gm in 250 mls @ 250 mls/hr IV Q12H [facility] Last Admin: 08/01/17 16:47 Dose: 250 mls/hr Sodium Chloride (Nacl 0.45% 1000 Ml) 1,000 mls @ 75 mls/hr IV DIRECT [facility] Last Admin: 08/01/17 02:04 Dose: 75 mls/hr Norepinephrine (Levophed Drip 4 Mg/Ns 250 Ml) 4 mg in 250 mls @ 7.5 mls/hr IV TITR [facility]; Protocol Last Titration: 08/01/17 16:14 Dose: 1 mcg/min, 3.75 mls/hr Sodium Chloride (Nacl 0.45% 1000 Ml) 500 mls @ 800 mls/hr IV DIRECT TIMMY Insulin Glargine (Lantus) 10 units SUB-Q QHS [facility] Insulin Human Lispro (Humalog) 0 unit SUB-Q Q6HR [facility]; Protocol Last Admin: 08/01/17 11:51 Dose: 6 unit Ondansetron HCl (Zofran) 4 mg IV Q8H PRN PRN Reason: Nausea And Vomiting Simple Syrup (Simple Syrup) 15 ml FEEDTUBE PRN PRN PRN Reason: Hypoglycemia Simple Syrup (Simple Syrup) 30 ml FEEDTUBE PRN PRN PRN Reason: Hypoglycemia Sodium Bicarbonate (Sodium Bicarbonate) 325 mg FEEDTUBE PRN PRN PRN Reason: For Clogged Feeding Tube Sodium Chloride (Sodium Chloride Flush Syringe 10 Ml) 10 ml IV BID [facility] Last Admin: 08/01/17 09:20 Dose: 10 ml Sodium Chloride (Sodium Chloride Flush Syringe 10 Ml) 10 ml IV PRN PRN PRN Reason: LINE FLUSH Vancomycin HCl (Vancomycin Pharmacy To Dose) 1 each IV PKCONSULT TIMMY Review of Systems Constitutional: weakness Breasts: deferred Respiratory: excessive sputum, other (oxygen at the NH.) Exam - Constitutional Vitals: Temp Pulse Resp BP Pulse Ox 99.9 F H 76 18 107/59 100 08/01/17 16:00 08/01/17 16:15 08/01/17 16:15 08/01/17 16:00 08/01/17 16:00 General appearance: Present: mild distress - EENT Eyes: Present: PERRL ENT: hearing intact, clear oral mucosa - Neck Neck: Present: supple, normal ROM - Respiratory Respiratory: bilateral: other (on the vent) - Cardiovascular Heart Sounds: Present: S1 & S2. Absent: rub, click - Extremities Extremities: pulses symmetrical, No edema Peripheral Pulses: within normal limits - Abdominal General gastrointestinal: Present: soft, non-tender, non-distended, normal bowel sounds Female genitourinary: Present: deferred - Rectal Rectal Exam: deferred - Integumentary Integumentary: Present: clear, warm, dry - Musculoskeletal Musculoskeletal: other (debilitated looking.) Results - Labs CBC & Chem 7: 08/01/17 06:38 08/01/17 06:38 Labs: Abnormal lab results 07/31/17 08/01/17 08/01/17 Range/Units 17:46 00:01 05:07 WBC (4.5-11.0) K/mm3 RBC (3.65-5.03) M/mm3 Hgb (10.1-14.3) gm/dl Hct (30.3-42.9) % MCV (79-97) fl MCH (28-32) pg RDW (13.2-15.2) % Lymph % (Auto) (13.4-35.0) % Seg Neutrophils % (40.0-70.0) % Seg Neutrophils # (1.8-7.7) K/mm3 POC ABG pH (7.35-7.45) POC ABG pCO2 (35-45) Creatinine (0.7-1.2) mg/dL Glucose (65-100) mg/dL POC Glucose 222 H 240 H 195 H (70-105) Calcium (8.4-10.2) mg/dL 08/01/17 08/01/17 08/01/17 Range/Units 05:46 06:38 06:38 WBC 11.7 H (4.5-11.0) K/mm3 RBC 3.00 L (3.65-5.03) M/mm3 Hgb 7.1 L (10.1-14.3) gm/dl Hct 22.6 L (30.3-42.9) % MCV 75 L (79-97) fl MCH 24 L (28-32) pg RDW 18.4 H (13.2-15.2) % Lymph % (Auto) 12.8 L (13.4-35.0) % Seg Neutrophils % 82.5 H (40.0-70.0) % Seg Neutrophils # 9.7 H (1.8-7.7) K/mm3 POC ABG pH 7.491 H (7.35-7.45) POC ABG pCO2 26.6 L (35-45) Creatinine 0.4 L (0.7-1.2) mg/dL Glucose 191 H (65-100) mg/dL POC Glucose (70-105) Calcium 7.7 L (8.4-10.2) mg/dL 08/01/17 Range/Units 11:47 WBC (4.5-11.0) K/mm3 RBC (3.65-5.03) M/mm3 Hgb (10.1-14.3) gm/dl Hct (30.3-42.9) % MCV (79-97) fl MCH (28-32) pg RDW (13.2-15.2) % Lymph % (Auto) (13.4-35.0) % Seg Neutrophils % (40.0-70.0) % Seg Neutrophils # (1.8-7.7) K/mm3 POC ABG pH (7.35-7.45) POC ABG pCO2 (35-45) Creatinine (0.7-1.2) mg/dL Glucose (65-100) mg/dL POC Glucose 289 H (70-105) Calcium (8.4-10.2) mg/dL Assessment and Plan - Patient Problems (1) Pneumonia Current Visit: Yes Status: Acute Plan to address problem: follow pulmonary. (2) Left foot infection Current Visit: Yes Status: Acute Plan to address problem: Follow vascular. (3) Feeding by G-tube Current Visit: Yes Status: Acute Plan to address problem: tube care/management. (4) Coagulopathy Current Visit: Yes Status: Acute Plan to address problem: Monitor coags, and adjust as needed.
--- NOTE | 2017-08-01 17:18 | Progress Note ---
Assessment and Plan Assessment and plan: Septic shock - Patient is managed according to sepsis protocol, IV antibiotics, fluids - Patient is off pressors now Pneumonia - continue IV antibiotics - Blood culture no growth so far Respiratory failure on trach -Pulmonary is following - Trach Anoxic brain injury, patient is on PEG and trach chronically Coumadin toxicity -INR is dropping down - hematology oncology consulted Dr Dickerson, who is her primary care Dr History of multiple strokes - Patient is bedbound Nutrition - Through PEG tubes, GI consult appreciated Disposition - Continue ICU care History Interval history: Patient was seen and evaluated this morning, patient is comatose, on PEG and trach, on MV. Hospitalist Physical - Physical exam Narrative exam: Patient is comatose, on PEG and trach, on A/C. Vital signs as documented. Head exam is unremarkable. No scleral icterus . Neck is without jugular venous distension, thyromegaly, or carotid bruits. Lungs are clear to auscultation. Cardiac exam reveals regular rate and Rhythm. First and second heart sounds normal. No murmurs, rubs or gallops. Abdominal exam reveals normal bowel sounds, no masses, no organomegaly and no aortic enlargement. Extremities contracted, decubitus ulcer. 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 - Constitutional Vitals: Temp Pulse Resp BP Pulse Ox 99.9 F H 76 18 107/59 100 08/01/17 16:00 08/01/17 16:15 08/01/17 16:15 08/01/17 16:00 08/01/17 16:00 Results - Labs CBC & Chem 7: 08/01/17 06:38 08/01/17 06:38 Labs: Laboratory Last Values WBC 11.7 K/mm3 (4.5-11.0) H 08/01/17 06:38 RBC 3.00 M/mm3 (3.65-5.03) L 08/01/17 06:38 Hgb 7.1 gm/dl (10.1-14.3) L 08/01/17 06:38 Hct 22.6 % (30.3-42.9) L 08/01/17 06:38 MCV 75 fl (79-97) L 08/01/17 06:38 MCH 24 pg (28-32) L 08/01/17 06:38 MCHC 32 % (30-34) 08/01/17 06:38 RDW 18.4 % (13.2-15.2) H 08/01/17 06:38 Plt Count 234 K/mm3 (140-440) 08/01/17 06:38 Lymph % (Auto) 12.8 % (13.4-35.0) L 08/01/17 06:38 [place] % (Auto) 3.8 % (0.0-7.3) 08/01/17 06:38 Eos % (Auto) 0.7 % (0.0-4.3) 08/01/17 06:38 Baso % (Auto) 0.2 % (0.0-1.8) 08/01/17 06:38 Lymph # 1.5 K/mm3 (1.2-5.4) 08/01/17 06:38 [place] # 0.4 K/mm3 (0.0-0.8) 08/01/17 06:38 Eos # 0.1 K/mm3 (0.0-0.4) 08/01/17 06:38 Baso # 0.0 K/mm3 (0.0-0.1) 08/01/17 06:38 Add Manual Diff Complete 07/30/17 16:52 Total Counted 100 07/30/17 16:52 Seg Neutrophils % 82.5 % (40.0-70.0) H 08/01/17 06:38 Seg Neuts % (Manual) 89.0 % (40.0-70.0) H 07/30/17 16:52 Band Neutrophils % 0 % 07/30/17 16:52 Lymphocytes % (Manual) 7.0 % (13.4-35.0) L 07/30/17 16:52 Reactive Lymphs % (Man) 0 % 07/30/17 16:52 Monocytes % (Manual) 4.0 % (0.0-7.3) 07/30/17 16:52 Eosinophils % (Manual) 0 % (0.0-4.3) 07/30/17 16:52 Basophils % (Manual) 0 % (0.0-1.8) 07/30/17 16:52 Metamyelocytes % 0 % 07/30/17 16:52 Myelocytes % 0 % 07/30/17 16:52 Promyelocytes % 0 % 07/30/17 16:52 Blast Cells % 0 % 07/30/17 16:52 Nucleated RBC % Not Reportable 07/30/17 16:52 Seg Neutrophils # 9.7 K/mm3 (1.8-7.7) H 08/01/17 06:38 Seg Neutrophils # Man 20.4 K/mm3 (1.8-7.7) H 07/30/17 16:52 Band Neutrophils # 0.0 K/mm3 07/30/17 16:52 Lymphocytes # (Manual) 1.6 K/mm3 (1.2-5.4) 07/30/17 16:52 Abs React Lymphs (Man) 0.0 K/mm3 07/30/17 16:52 Monocytes # (Manual) 0.9 K/mm3 (0.0-0.8) H 07/30/17 16:52 Eosinophils # (Manual) 0.0 K/mm3 (0.0-0.4) 07/30/17 16:52 Basophils # (Manual) 0.0 K/mm3 (0.0-0.1) 07/30/17 16:52 Metamyelocytes # 0.0 K/mm3 07/30/17 16:52 Myelocytes # 0.0 K/mm3 07/30/17 16:52 Promyelocytes # 0.0 K/mm3 07/30/17 16:52 Blast Cells # 0.0 K/mm3 07/30/17 16:52 WBC Morphology Not Reportable 07/30/17 16:52 Hypersegmented Neuts Not Reportable 07/30/17 16:52 Hyposegmented Neuts Not Reportable 07/30/17 16:52 Hypogranular Neuts Not Reportable 07/30/17 16:52 Smudge Cells Not Reportable 07/30/17 16:52 Toxic Granulation Not Reportable 07/30/17 16:52 Toxic Vacuolation Not Reportable 07/30/17 16:52 Dohle Bodies Not Reportable 07/30/17 16:52 Pelger-Huet Anomaly Not Reportable 07/30/17 16:52 Zach Rods Not Reportable 07/30/17 16:52 Platelet Estimate Consistent w auto 07/30/17 16:52 Clumped Platelets Not Reportable 07/30/17 16:52 Plt Clumps, EDTA Not Reportable 07/30/17 16:52 Large Platelets 1+ 07/30/17 16:52 Giant Platelets Not Reportable 07/30/17 16:52 Platelet Satelliting Not Reportable 07/30/17 16:52 Plt Morphology Comment Not Reportable 07/30/17 16:52 RBC Morphology Not Reportable 07/30/17 16:52 Dimorphic RBCs Not Reportable 07/30/17 16:52 Polychromasia Not Reportable 07/30/17 16:52 Hypochromasia 1+ 07/30/17 16:52 Poikilocytosis 1+ 07/30/17 16:52 Anisocytosis 1+ 07/30/17 16:52 Microcytosis Not Reportable 07/30/17 16:52 Macrocytosis Not Reportable 07/30/17 16:52 Spherocytes Not Reportable 07/30/17 16:52 Pappenheimer Bodies Not Reportable 07/30/17 16:52 Sickle Cells Not Reportable 07/30/17 16:52 Target Cells Not Reportable 07/30/17 16:52 Tear Drop Cells Not Reportable 07/30/17 16:52 Ovalocytes Not Reportable 07/30/17 16:52 Helmet Cells Not Reportable 07/30/17 16:52 [place] Bodies Not Reportable 07/30/17 16:52 [place] Rings Not Reportable 07/30/17 16:52 [place] Cells Not Reportable 07/30/17 16:52 Bite Cells Not Reportable 07/30/17 16:52 Crenated Cell Not Reportable 07/30/17 16:52 Elliptocytes Not Reportable 07/30/17 16:52 Acanthocytes (Spur) Not Reportable 07/30/17 16:52 Rouleaux Not Reportable 07/30/17 16:52 Hemoglobin C Crystals Not Reportable 07/30/17 16:52 Schistocytes Not Reportable 07/30/17 16:52 Malaria parasites Not Reportable 07/30/17 16:52 He Bodies Not Reportable 07/30/17 16:52 Hem Pathologist Commnt No 07/30/17 16:52 PT 33.9 Sec. (12.2-14.9) H 07/31/17 04:00 INR 3.08 (0.87-1.13) H 07/31/17 04:00 APTT 53.6 Sec. (24.2-36.6) H 07/31/17 04:00 Fibrinogen 651 mg/dl (211-480) H 07/30/17 16:55 D-Dimer 1885.58 ng/mlDDU (0-234) H 07/30/17 16:55 POC ABG pH 7.491 (7.35-7.45) H 08/01/17 05:46 ABG pH 7.327 pH Units (7.350-7.450) L 07/29/17 01:41 POC ABG pCO2 26.6 (35-45) L 08/01/17 05:46 ABG pCO2 TNR 07/29/17 01:41 POC ABG pO2 83 (80-105) 08/01/17 05:46 ABG pO2 TNR 07/29/17 01:41 POC ABG HCO3 20.3 08/01/17 05:46 ABG HCO3 TNR 07/29/17 01:41 POC ABG Total CO2 21 08/01/17 05:46 POC ABG O2 Sat 97 08/01/17 05:46 ABG O2 Saturation TNR 07/29/17 01:41 ABG O2 Content TNR 07/29/17 01:41 POC ABG Base Excess -3 08/01/17 05:46 ABG Base Excess TNR 07/29/17 01:41 ABG Hemoglobin TNR 07/29/17 01:41 ABG Carboxyhemoglobin TNR 07/29/17 01:41 ABG Methemoglobin TNR 07/29/17 01:41 VBG pH 7.327 (7.320-7.420) 07/29/17 01:41 Oxyhemoglobin TNR 07/29/17 01:41 FiO2 30 % 08/01/17 05:46 Sodium 138 mmol/L (137-145) 08/01/17 06:38 Potassium 3.6 mmol/L (3.6-5.0) 08/01/17 06:38 Chloride 104.0 mmol/L (98-107) 08/01/17 06:38 Carbon Dioxide 22 mmol/L (22-30) 08/01/17 06:38 Anion Gap 16 mmol/L 08/01/17 06:38 BUN 9 mg/dL (7-17) 08/01/17 06:38 Creatinine 0.4 mg/dL (0.7-1.2) L 08/01/17 06:38 Estimated GFR > 60 ml/min 08/01/17 06:38 BUN/Creatinine Ratio 23 % 08/01/17 06:38 Glucose 191 mg/dL (65-100) H 08/01/17 06:38 POC Glucose 289 (70-105) H 08/01/17 11:47 Lactic Acid 1.50 mmol/L (0.7-2.0) 07/31/17 10:45 Calcium 7.7 mg/dL (8.4-10.2) L 08/01/17 06:38 Total Bilirubin 0.20 mg/dL (0.1-1.2) 07/29/17 01:41 AST 27 units/L (5-40) 07/29/17 01:41 ALT 55 units/L (7-56) 07/29/17 01:41 Alkaline Phosphatase 109 units/L (35-129) 07/29/17 01:41 Total Creatine Kinase 179 units/L (30-135) H 07/29/17 10:05 CK-MB (CK-2) 3.0 ng/mL (0.0-4.0) 07/29/17 10:05 CK-MB (CK-2) Rel Index 1.6 (0-4) 07/29/17 10:05 Troponin T 0.093 ng/mL (0.00-0.029) H 07/29/17 10:05 Total Protein 6.5 g/dL (6.3-8.2) 07/29/17 01:41 Albumin 2.0 g/dL (3.9-5) L 07/29/17 01:41 Albumin/Globulin Ratio 0.4 % 07/29/17 01:41 Triglycerides 115 mg/dL (2-149) 07/29/17 01:41 Cholesterol 50 mg/dL (50-199) 07/29/17 01:41 LDL Cholesterol Direct 14 mg/dL (50-130) L 07/29/17 01:41 HDL Cholesterol 13 mg/dL (40-59) L 07/29/17 01:41 Cholesterol/HDL Ratio 3.84 % 07/29/17 01:41 Urine Color Yellow (Yellow) 07/29/17 Unknown Urine Turbidity Turbid (Clear) 07/29/17 Unknown Urine pH 5.0 (5.0-7.0) 07/29/17 Unknown Ur Specific [place] 1.024 (1.003-1.030) 07/29/17 Unknown Urine Protein 30 mg/dl mg/dL (Negative) 07/29/17 Unknown Urine Glucose (UA) >=500 mg/dL (Negative) 07/29/17 Unknown Urine Ketones Neg mg/dL (Negative) 07/29/17 Unknown Urine Blood Lg (Negative) 07/29/17 Unknown Urine Nitrite Neg (Negative) 07/29/17 Unknown Urine Bilirubin Neg (Negative) 07/29/17 Unknown Urine Urobilinogen < 2.0 mg/dL (<2.0) 07/29/17 Unknown Ur Leukocyte Esterase Mod (Negative) 07/29/17 Unknown Urine WBC (Auto) 169.0 /HPF (0.0-6.0) H 07/29/17 Unknown Urine RBC (Auto) > 182.0 /HPF (0.0-6.0) 07/29/17 Unknown U Epithel Cells (Auto) 9.0 /HPF (0-13.0) 07/29/17 Unknown Urine Bacteria (Auto) 4+ /HPF (Negative) 07/29/17 Unknown Urine WBC Clumps 3+ /HPF 07/29/17 Unknown Urine Mucus 1+ /HPF 07/29/17 Unknown Ur Yeast w Hyphae 1+ /HPF 07/29/17 Unknown Urine Yeast (Budding) 3+ /HPF 07/29/17 Unknown Vancomycin Trough 12.3 ug/mL (5.0-20.0) 08/01/17 15:29
[2017-08-01 18:04] LABS: INR 1.64 (0.87-1.13)
[2017-08-01 18:17] LABS: Iron 17 ug/dL (37-170); Total Iron Binding Capacity 103 mcg/dL (250-450)
[2017-08-01] MEDS: LANTUS SUB-Q SCH (21:59)
[2017-08-02] MEDS: ZOSYN/NS 3.375GM/50ML 3.375 GM/50 ML BAG IV SCH ×4 (01:28→23:50)
[2017-08-02] MEDS: VANCOMYCIN/0.45 NS 1 GM/250 ML 1 GM/250 ML BAG IV SCH ×2 (03:56→15:21)
--- NOTE | 2017-08-02 04:04 | XRay Report ---
FINAL REPORT PROCEDURE: XR CHEST 1V AP TECHNIQUE: Chest radiograph anteroposterior view. CPT 67608 HISTORY: pneumonia COMPARISON: 07/29/2017 FINDINGS: Heart: Normal. Mediastinum/Vessels: Normal. Lungs/Pleural space: There remains a slight patchy infiltrate in the left lower lung.. Bony thorax: No acute osseous abnormality. Life support devices: Tracheostomy tube is properly positioned. Right central catheter ends in the SVC. IMPRESSION: Slight infiltrate left lower lung unchanged. Tracheostomy tube and right central catheter are properly positioned.
[2017-08-02 04:38] LABS: BUN/Creatinine Ratio 20; Blood Urea Nitrogen 6 mg/dL (7-17); Calcium 6.3 mg/dL (8.4-10.2); Hemolysis Index 0
[2017-08-02 04:39] LABS: Basophils % (Auto) 0.1 % (0.0-1.8); Eosinophils # (Auto) 0.1 K/mm3 (0.0-0.4); Eosinophils % (Auto) 1.1 % (0.0-4.3); Hematocrit 22.8 % (30.3-42.9); Hemoglobin 7.2 gm/dl (10.1-14.3); Lymphocytes # (Auto) 1.7 K/mm3 (1.2-5.4); Lymphocytes % (Auto) 13.1 % (13.4-35.0); Mean Corpuscular HGB Conc 32 % (30-34); Mean Corpuscular Volume 75 fl (79-97); Monocytes # (Auto) 0.5 K/mm3 (0.0-0.8); Monocytes % (Auto) 4.2 % (0.0-7.3); Platelet Count 227 K/mm3 (140-440); Red Blood Count 3.04 M/mm3 (3.65-5.03)
[2017-08-02 04:47] LABS: Mean Corpuscular Hemoglobin 24 pg (28-32)
[2017-08-02] MEDS: HumaLOG SUB-Q SCH ×4 (05:40→18:04)
[2017-08-02] MEDS: DUONEB *Not for PRN Use IH SCH ×3 (09:06→19:22)
[2017-08-02] MEDS: ROBINUL PO SCH ×2 (09:15→21:06)
[2017-08-02] MEDS: PEPCID IV SCH ×2 (09:15→21:06)
[2017-08-02] MEDS: NACL 0.45% 1000 ML 1,000 ML IV SCH ×2 (09:15→23:50)
[2017-08-02] MEDS: LEVOPHED DRIP 4 MG/NS 250 ML 4 MG/250 ML BAG IV SCH (09:16)
[2017-08-02] MEDS: SODIUM CHLORIDE FLUSH SYRINGE 10 ML IV SCH ×2 (09:17→21:07)
[2017-08-02 10:28] LABS: INR 1.46 (0.87-1.13)
--- NOTE | 2017-08-02 13:15 | Progress Note ---
Assessment and Plan Sepsis with shock. Coming off pressors, improved Left lower lobe pneumonia with Pseudomonas resistant to quinolones On antibiotics/Zosyn. Acute on chronic respiratory failure. Improved. History of anoxic brain injury, chronic Tracheotomy patient Hypernatremia. Improving. Hypokalemia Recommendations Serial BP monitoring CPAP trial today, check arterial blood gases Serial BMP, avoid rapid Na+ drop Measure intake and output. Daily morning sedation vacation and initiate SBT if deemed appropriate DVT prophylaxis PPI prophylaxis Continue current antibiotics Zosyn and vancomycin. Need to verify DO NOT RESUSCITATE status with family. Reportedly she was DO NOT RESUSCITATE at the residential Total critical care time 31 minutes Subjective Date of service: 08/02/17 Interval history: Patient opens eyes. Has tracheostomy, currently on mechanical ventilator, tolerating CPAP with pressure support well. Objective Vital Signs - 12hr 08/02/17 08/02/17 08/02/17 01:21 01:30 01:41 Temperature Pulse Rate 84 89 91 H Pulse Rate [ Anterior Throughout] Respiratory 14 14 13 Rate Respiratory Rate [Anterior Throughout] Blood Pressure 119/67 111/56 111/56 O2 Sat by Pulse 100 100 100 Oximetry 08/02/17 08/02/17 08/02/17 01:51 02:00 02:11 Temperature Pulse Rate 88 87 87 Pulse Rate [ Anterior Throughout] Respiratory 13 12 22 Rate Respiratory Rate [Anterior Throughout] Blood Pressure 111/56 98/59 98/59 O2 Sat by Pulse 100 100 Oximetry 08/02/17 08/02/17 08/02/17 02:21 02:31 02:41 Temperature Pulse Rate 84 84 82 Pulse Rate [ Anterior Throughout] Respiratory 15 12 12 Rate Respiratory Rate [Anterior Throughout] Blood Pressure 86/39 103/25 103/25 O2 Sat by Pulse 100 100 100 Oximetry 08/02/17 08/02/17 08/02/17 02:51 03:00 03:11 Temperature 99.4 F Pulse Rate 77 78 78 Pulse Rate [ Anterior Throughout] Respiratory 12 13 12 Rate Respiratory Rate [Anterior Throughout] Blood Pressure 103/25 81/43 81/43 O2 Sat by Pulse 100 100 100 Oximetry 08/02/17 08/02/17 08/02/17 03:21 03:25 03:31 Temperature Pulse Rate 86 72 69 Pulse Rate [ Anterior Throughout] Respiratory 13 13 Rate Respiratory Rate [Anterior Throughout] Blood Pressure 89/47 98/52 94/49 O2 Sat by Pulse 100 100 100 Oximetry 08/02/17 08/02/17 08/02/17 03:41 03:51 04:00 Temperature Pulse Rate 83 72 Pulse Rate [ Anterior Throughout] Respiratory 25 H 13 15 Rate Respiratory Rate [Anterior Throughout] Blood Pressure 94/49 149/69 O2 Sat by Pulse 100 100 100 Oximetry 08/02/17 08/02/17 08/02/17 04:01 04:11 04:21 Temperature Pulse Rate 78 73 74 Pulse Rate [ Anterior Throughout] Respiratory 18 15 15 Rate Respiratory Rate [Anterior Throughout] Blood Pressure 129/57 129/57 129/57 O2 Sat by Pulse 100 100 100 Oximetry 08/02/17 08/02/17 08/02/17 04:31 04:41 04:51 Temperature Pulse Rate 73 86 80 Pulse Rate [ Anterior Throughout] Respiratory 13 16 16 Rate Respiratory Rate [Anterior Throughout] Blood Pressure 116/51 116/51 116/51 O2 Sat by Pulse 100 100 100 Oximetry 08/02/17 08/02/17 08/02/17 05:00 05:11 05:21 Temperature Pulse Rate 72 78 72 Pulse Rate [ Anterior Throughout] Respiratory 12 13 15 Rate Respiratory Rate [Anterior Throughout] Blood Pressure 112/53 112/53 112/52 O2 Sat by Pulse 100 100 100 Oximetry 08/02/17 08/02/17 08/02/17 05:31 05:41 05:51 Temperature Pulse Rate 90 88 81 Pulse Rate [ Anterior Throughout] Respiratory 14 12 12 Rate Respiratory Rate [Anterior Throughout] Blood Pressure 121/61 121/61 107/28 O2 Sat by Pulse 100 100 100 Oximetry 08/02/17 08/02/17 08/02/17 06:01 06:11 06:21 Temperature Pulse Rate 90 81 84 Pulse Rate [ Anterior Throughout] Respiratory 23 14 13 Rate Respiratory Rate [Anterior Throughout] Blood Pressure 84/43 84/43 76/40 O2 Sat by Pulse 99 98 100 Oximetry 08/02/17 08/02/17 08/02/17 06:31 06:41 06:51 Temperature Pulse Rate 69 69 65 Pulse Rate [ Anterior Throughout] Respiratory 13 13 14 Rate Respiratory Rate [Anterior Throughout] Blood Pressure 86/47 86/47 95/53 O2 Sat by Pulse 100 100 100 Oximetry 08/02/17 08/02/17 08/02/17 07:00 07:11 07:21 Temperature Pulse Rate 70 69 67 Pulse Rate [ Anterior Throughout] Respiratory 14 15 16 Rate Respiratory Rate [Anterior Throughout] Blood Pressure 104/59 104/59 115/55 O2 Sat by Pulse 100 100 100 Oximetry 18 18 08/02/17 07:31 07:41 07:51 Temperature Pulse Rate 68 72 73 Pulse Rate [ Anterior Throughout] Respiratory 15 16 17 Rate Respiratory Rate [Anterior Throughout] Blood Pressure 113/51 113/51 113/51 O2 Sat by Pulse 100 100 100 Oximetry 08/02/17 08/02/17 08/02/17 08:00 08:01 08:10 Temperature Pulse Rate 100 H 72 Pulse Rate [ 99 H 100 H Anterior Throughout] Respiratory 16 Rate Respiratory 19 14 Rate [Anterior Throughout] Blood Pressure 105/67 105/50 O2 Sat by Pulse 99 100 Oximetry 08/02/17 08/02/17 08/02/17 08:11 08:21 08:30 Temperature Pulse Rate 72 76 70 Pulse Rate [ Anterior Throughout] Respiratory 13 14 12 Rate Respiratory Rate [Anterior Throughout] Blood Pressure 105/50 102/53 108/51 O2 Sat by Pulse 100 100 100 Oximetry 08/02/17 08/02/17 08/02/17 08:41 08:45 08:51 Temperature Pulse Rate 72 73 Pulse Rate [ Anterior Throughout] Respiratory 16 26 H 12 Rate Respiratory Rate [Anterior Throughout] Blood Pressure 108/51 102/50 O2 Sat by Pulse 100 98 100 Oximetry 08/02/17 08/02/17 08/02/17 09:01 09:11 09:20 Temperature Pulse Rate 72 89 97 H Pulse Rate [ Anterior Throughout] Respiratory 13 12 26 H Rate Respiratory Rate [Anterior Throughout] Blood Pressure 99/48 99/48 105/67 O2 Sat by Pulse 100 100 100 Oximetry 08/02/17 08/02/17 08/02/17 09:30 09:41 09:51 Temperature Pulse Rate 96 H 99 H 97 H Pulse Rate [ Anterior Throughout] Respiratory 29 H 28 H 26 H Rate Respiratory Rate [Anterior Throughout] Blood Pressure 100/64 100/64 89/58 O2 Sat by Pulse 99 98 98 Oximetry 08/02/17 08/02/17 08/02/17 10:00 10:11 10:21 Temperature Pulse Rate 96 H 96 H 96 H Pulse Rate [ Anterior Throughout] Respiratory 21 25 H 13 Rate Respiratory Rate [Anterior Throughout] Blood Pressure 92/61 92/61 91/60 O2 Sat by Pulse 99 99 100 Oximetry 08/02/17 08/02/17 08/02/17 10:30 10:41 10:51 Temperature Pulse Rate 96 H 84 91 H Pulse Rate [ Anterior Throughout] Respiratory 8 L 26 H 25 H Rate Respiratory Rate [Anterior Throughout] Blood Pressure 92/66 92/66 93/59 O2 Sat by Pulse 97 100 100 Oximetry 08/02/17 08/02/17 08/02/17 11:00 11:11 11:21 Temperature Pulse Rate 90 92 H 89 Pulse Rate [ Anterior Throughout] Respiratory 24 15 23 Rate Respiratory Rate [Anterior Throughout] Blood Pressure 91/59 91/59 89/57 O2 Sat by Pulse 100 100 100 Oximetry 08/02/17 08/02/17 08/02/17 11:30 11:41 11:51 Temperature Pulse Rate 86 88 88 Pulse Rate [ Anterior Throughout] Respiratory 23 24 25 H Rate Respiratory Rate [Anterior Throughout] Blood Pressure 93/57 93/57 94/60 O2 Sat by Pulse 100 100 100 Oximetry 08/02/17 08/02/17 08/02/17 12:00 12:01 12:11 Temperature 99.4 F Pulse Rate 89 88 Pulse Rate [ Anterior Throughout] Respiratory 24 23 Rate Respiratory Rate [Anterior Throughout] Blood Pressure 92/61 92/61 O2 Sat by Pulse 100 100 Oximetry 08/02/17 08/02/17 08/02/17 12:21 12:25 13:04 Temperature Pulse Rate 89 75 Pulse Rate [ Anterior Throughout] Respiratory 22 22 24 Rate Respiratory Rate [Anterior Throughout] Blood Pressure 92/61 113/59 O2 Sat by Pulse 100 100 99 Oximetry 08/02/17 13:08 Temperature Pulse Rate Pulse Rate [ 73 Anterior Throughout] Respiratory Rate Respiratory 18 Rate [Anterior Throughout] Blood Pressure O2 Sat by Pulse Oximetry Constitutional: no acute distress, other (on ventilator support) Eyes: non-icteric ENT: oropharynx dry Neck: supple, no JVD, bruit (tracheotomy in position no bleeding), other ( tracheostomy present) Ascultation: Right: rhonchi, Bilateral: clear, diminished breath sounds Cardiovascular: regular rate and rhythm Gastrointestinal: normoactive bowel sounds, soft, non-tender, non-distended Integumentary: normal Extremities: no cyanosis, other (contraction deformities present. Edema present.) Neurologic: other (moving more when stimulated) CBC and BMP: 08/02/17 04:00 08/02/17 04:00 ABG, PT/INR, D-dimer: ABG POC ABG pH 7.537 (7.35-7.45) H 08/02/17 03:56 ABG pH 7.327 pH Units (7.350-7.450) L 07/29/17 01:41 POC ABG pCO2 28.4 (35-45) L 08/02/17 03:56 ABG pCO2 TNR 07/29/17 01:41 POC ABG pO2 109 (80-105) H 08/02/17 03:56 ABG pO2 TNR 07/29/17 01:41 POC ABG HCO3 24.1 08/02/17 03:56 POC ABG Total CO2 25 08/02/17 03:56 POC ABG O2 Sat 99 08/02/17 03:56 ABG O2 Saturation TNR 07/29/17 01:41 PT/INR, D-dimer PT 18.6 Sec. (12.2-14.9) H 08/02/17 10:00 INR 1.46 (0.87-1.13) H 08/02/17 10:00 D-Dimer 1885.58 ng/mlDDU (0-234) H 07/30/17 16:55 Abnormal lab findings: Abnormal Labs 07/29/17 07/29/17 07/29/17 01:41 01:41 01:41 WBC 21.0 H RBC Hgb 9.7 L Hct MCV MCH 24 L RDW 19.0 H Lymph % (Auto) Seg Neutrophils % Seg Neuts % (Manual) 77.0 H Lymphocytes % (Manual) 4.5 L Nucleated RBC % 1.0 H Seg Neutrophils # Seg Neutrophils # Man 16.2 H Lymphocytes # (Manual) 0.9 L Monocytes # (Manual) PT 54.1 H INR 5.49 H* APTT 55.7 H Fibrinogen D-Dimer POC ABG pH ABG pH POC ABG pCO2 POC ABG pO2 Sodium Potassium Chloride Carbon Dioxide BUN Creatinine Glucose POC Glucose Lactic Acid 9.30 H* Calcium Iron TIBC Total Creatine Kinase Troponin T Albumin LDL Cholesterol Direct HDL Cholesterol Vitamin B12 Urine WBC (Auto) Vancomycin Trough 07/29/17 07/29/17 07/29/17 01:41 01:41 02:45 WBC RBC Hgb Hct MCV MCH RDW Lymph % (Auto) Seg Neutrophils % Seg Neuts % (Manual) Lymphocytes % (Manual) Nucleated RBC % Seg Neutrophils # Seg Neutrophils # Man Lymphocytes # (Manual) Monocytes # (Manual) PT INR APTT Fibrinogen D-Dimer POC ABG pH ABG pH 7.327 L POC ABG pCO2 32.9 L POC ABG pO2 74 L Sodium 154 H Potassium Chloride 109.8 H Carbon Dioxide BUN 43 H Creatinine 1.3 H Glucose 682 H* POC Glucose Lactic Acid Calcium Iron TIBC Total Creatine Kinase Troponin T 0.209 H* Albumin 2.0 L LDL Cholesterol Direct 14 L HDL Cholesterol 13 L Vitamin B12 Urine WBC (Auto) Vancomycin Trough 07/29/17 07/29/17 07/29/17 03:19 04:11 04:11 WBC RBC Hgb Hct MCV MCH RDW Lymph % (Auto) Seg Neutrophils % Seg Neuts % (Manual) Lymphocytes % (Manual) Nucleated RBC % Seg Neutrophils # Seg Neutrophils # Man Lymphocytes # (Manual) Monocytes # (Manual) PT INR APTT Fibrinogen D-Dimer POC ABG pH ABG pH POC ABG pCO2 POC ABG pO2 Sodium Potassium Chloride Carbon Dioxide BUN Creatinine Glucose POC Glucose Lactic Acid 8.30 H* 7.50 H* Calcium Iron TIBC Total Creatine Kinase Troponin T 0.169 H* Albumin LDL Cholesterol Direct HDL Cholesterol Vitamin B12 Urine WBC (Auto) Vancomycin Trough 07/29/17 07/29/17 07/29/17 07:50 07:50 09:46 WBC RBC Hgb Hct MCV MCH RDW Lymph % (Auto) Seg Neutrophils % Seg Neuts % (Manual) Lymphocytes % (Manual) Nucleated RBC % Seg Neutrophils # Seg Neutrophils # Man Lymphocytes # (Manual) Monocytes # (Manual) PT INR APTT Fibrinogen D-Dimer POC ABG pH ABG pH POC ABG pCO2 POC ABG pO2 Sodium Potassium Chloride Carbon Dioxide BUN Creatinine Glucose POC Glucose 380 H Lactic Acid 3.30 H* Calcium Iron TIBC Total Creatine Kinase 172 H Troponin T 0.111 H* D Albumin LDL Cholesterol Direct HDL Cholesterol Vitamin B12 Urine WBC (Auto) Vancomycin Trough 07/29/17 07/29/17 07/29/17 10:05 10:05 12:45 WBC RBC Hgb Hct MCV MCH RDW Lymph % (Auto) Seg Neutrophils % Seg Neuts % (Manual) Lymphocytes % (Manual) Nucleated RBC % Seg Neutrophils # Seg Neutrophils # Man Lymphocytes # (Manual) Monocytes # (Manual) PT INR APTT Fibrinogen D-Dimer POC ABG pH ABG pH POC ABG pCO2 POC ABG pO2 Sodium Potassium Chloride Carbon Dioxide BUN Creatinine Glucose POC Glucose 404 H Lactic Acid 2.30 H* Calcium Iron TIBC Total Creatine Kinase 179 H Troponin T 0.093 H Albumin LDL Cholesterol Direct HDL Cholesterol Vitamin B12 Urine WBC (Auto) Vancomycin Trough 07/29/17 07/29/17 07/29/17 17:32 19:23 Unknown WBC RBC Hgb Hct MCV MCH RDW Lymph % (Auto) Seg Neutrophils % Seg Neuts % (Manual) Lymphocytes % (Manual) Nucleated RBC % Seg Neutrophils # Seg Neutrophils # Man Lymphocytes # (Manual) Monocytes # (Manual) PT INR APTT Fibrinogen D-Dimer POC ABG pH ABG pH POC ABG pCO2 POC ABG pO2 Sodium 156 H Potassium 2.6 L* D Chloride 119.9 H Carbon Dioxide BUN 25 H Creatinine Glucose 275 H POC Glucose 343 H Lactic Acid Calcium 7.7 L Iron TIBC Total Creatine Kinase Troponin T Albumin LDL Cholesterol Direct HDL Cholesterol Vitamin B12 Urine WBC (Auto) 169.0 H Vancomycin Trough 07/30/17 07/30/17 07/30/17 00:02 05:33 05:40 WBC 23.9 H RBC 3.51 L Hgb 8.3 L Hct 26.8 L MCV 77 L MCH 24 L RDW 18.3 H Lymph % (Auto) Seg Neutrophils % Seg Neuts % (Manual) 84.0 H Lymphocytes % (Manual) 7.0 L Nucleated RBC % Seg Neutrophils # Seg Neutrophils # Man 20.1 H Lymphocytes # (Manual) Monocytes # (Manual) PT INR APTT Fibrinogen D-Dimer POC ABG pH ABG pH POC ABG pCO2 POC ABG pO2 Sodium Potassium Chloride Carbon Dioxide BUN Creatinine Glucose POC Glucose 186 H 246 H Lactic Acid Calcium Iron TIBC Total Creatine Kinase Troponin T Albumin LDL Cholesterol Direct HDL Cholesterol Vitamin B12 Urine WBC (Auto) Vancomycin Trough 07/30/17 07/30/17 07/30/17 05:40 06:13 11:53 WBC RBC Hgb Hct MCV MCH RDW Lymph % (Auto) Seg Neutrophils % Seg Neuts % (Manual) Lymphocytes % (Manual) Nucleated RBC % Seg Neutrophils # Seg Neutrophils # Man Lymphocytes # (Manual) Monocytes # (Manual) PT INR APTT Fibrinogen D-Dimer POC ABG pH 7.461 H ABG pH POC ABG pCO2 33.9 L POC ABG pO2 226 H Sodium 156 H Potassium 3.2 L D Chloride 117.5 H Carbon Dioxide BUN 19 H Creatinine 0.6 L Glucose 212 H POC Glucose 166 H Lactic Acid Calcium 7.8 L Iron TIBC Total Creatine Kinase Troponin T Albumin LDL Cholesterol Direct HDL Cholesterol Vitamin B12 Urine WBC (Auto) Vancomycin Trough 07/30/17 07/30/17 07/30/17 15:54 16:52 16:55 WBC 22.9 H RBC 3.29 L Hgb 7.8 L Hct 25.1 L MCV 76 L MCH 24 L RDW 18.2 H Lymph % (Auto) Seg Neutrophils % Seg Neuts % (Manual) 89.0 H Lymphocytes % (Manual) 7.0 L Nucleated RBC % Seg Neutrophils # Seg Neutrophils # Man 20.4 H Lymphocytes # (Manual) Monocytes # (Manual) 0.9 H PT INR APTT Fibrinogen D-Dimer POC ABG pH ABG pH POC ABG pCO2 POC ABG pO2 Sodium 154 H Potassium 3.5 L Chloride 122.1 H Carbon Dioxide BUN Creatinine 0.5 L Glucose 180 H POC Glucose Lactic Acid Calcium 7.6 L Iron TIBC Total Creatine Kinase Troponin T Albumin LDL Cholesterol Direct HDL Cholesterol Vitamin B12 Urine WBC (Auto) Vancomycin Trough 29.7 H 07/30/17 07/30/17 07/30/17 16:55 17:06 21:00 WBC RBC Hgb Hct MCV MCH RDW Lymph % (Auto) Seg Neutrophils % Seg Neuts % (Manual) Lymphocytes % (Manual) Nucleated RBC % Seg Neutrophils # Seg Neutrophils # Man Lymphocytes # (Manual) Monocytes # (Manual) PT 44.7 H INR 4.33 H APTT 62.8 H* Fibrinogen 651 H D-Dimer 1885.58 H POC ABG pH ABG pH POC ABG pCO2 POC ABG pO2 Sodium 150 H Potassium 3.2 L Chloride 114.3 H Carbon Dioxide BUN Creatinine 0.5 L Glucose 167 H POC Glucose 213 H Lactic Acid Calcium 7.7 L Iron TIBC Total Creatine Kinase Troponin T Albumin LDL Cholesterol Direct HDL Cholesterol Vitamin B12 Urine WBC (Auto) Vancomycin Trough 07/30/17 07/31/17 07/31/17 Unknown 00:29 04:00 WBC RBC Hgb Hct MCV MCH RDW Lymph % (Auto) Seg Neutrophils % Seg Neuts % (Manual) Lymphocytes % (Manual) Nucleated RBC % Seg Neutrophils # Seg Neutrophils # Man Lymphocytes # (Manual) Monocytes # (Manual) PT 57.1 H 33.9 H INR 5.87 H* 3.08 H APTT 53.6 H Fibrinogen D-Dimer POC ABG pH ABG pH POC ABG pCO2 POC ABG pO2 Sodium Potassium Chloride Carbon Dioxide BUN Creatinine Glucose POC Glucose 198 H Lactic Acid Calcium Iron TIBC Total Creatine Kinase Troponin T Albumin LDL Cholesterol Direct HDL Cholesterol Vitamin B12 Urine WBC (Auto) Vancomycin Trough 07/31/17 07/31/17 07/31/17 04:00 04:00 05:51 WBC 17.2 H RBC 3.14 L Hgb 7.5 L Hct 23.9 L MCV 76 L MCH 24 L RDW 18.3 H Lymph % (Auto) 9.1 L Seg Neutrophils % 88.1 H Seg Neuts % (Manual) Lymphocytes % (Manual) Nucleated RBC % Seg Neutrophils # 15.2 H Seg Neutrophils # Man Lymphocytes # (Manual) Monocytes # (Manual) PT INR APTT Fibrinogen D-Dimer POC ABG pH 7.538 H ABG pH POC ABG pCO2 25.6 L POC ABG pO2 118 H Sodium 147 H Potassium Chloride 113.9 H Carbon Dioxide BUN Creatinine 0.4 L Glucose 175 H POC Glucose Lactic Acid Calcium 7.6 L Iron TIBC Total Creatine Kinase Troponin T Albumin LDL Cholesterol Direct HDL Cholesterol Vitamin B12 Urine WBC (Auto) Vancomycin Trough 07/31/17 07/31/17 07/31/17 05:51 10:45 11:25 WBC RBC Hgb Hct MCV MCH RDW Lymph % (Auto) Seg Neutrophils % Seg Neuts % (Manual) Lymphocytes % (Manual) Nucleated RBC % Seg Neutrophils # Seg Neutrophils # Man Lymphocytes # (Manual) Monocytes # (Manual) PT INR APTT Fibrinogen D-Dimer POC ABG pH ABG pH POC ABG pCO2 POC ABG pO2 Sodium Potassium 3.3 L Chloride 108.4 H Carbon Dioxide BUN Creatinine 0.4 L Glucose 139 H POC Glucose 176 H 147 H Lactic Acid Calcium 7.6 L Iron TIBC Total Creatine Kinase Troponin T Albumin LDL Cholesterol Direct HDL Cholesterol Vitamin B12 Urine WBC (Auto) Vancomycin Trough 07/31/17 08/01/17 08/01/17 17:46 00:01 05:07 WBC RBC Hgb Hct MCV MCH RDW Lymph % (Auto) Seg Neutrophils % Seg Neuts % (Manual) Lymphocytes % (Manual) Nucleated RBC % Seg Neutrophils # Seg Neutrophils # Man Lymphocytes # (Manual) Monocytes # (Manual) PT INR APTT Fibrinogen D-Dimer POC ABG pH ABG pH POC ABG pCO2 POC ABG pO2 Sodium Potassium Chloride Carbon Dioxide BUN Creatinine Glucose POC Glucose 222 H 240 H 195 H Lactic Acid Calcium Iron TIBC Total Creatine Kinase Troponin T Albumin LDL Cholesterol Direct HDL Cholesterol Vitamin B12 Urine WBC (Auto) Vancomycin Trough 08/01/17 08/01/17 08/01/17 05:46 06:38 06:38 WBC 11.7 H RBC 3.00 L Hgb 7.1 L Hct 22.6 L MCV 75 L MCH 24 L RDW 18.4 H Lymph % (Auto) 12.8 L Seg Neutrophils % 82.5 H Seg Neuts % (Manual) Lymphocytes % (Manual) Nucleated RBC % Seg Neutrophils # 9.7 H Seg Neutrophils # Man Lymphocytes # (Manual) Monocytes # (Manual) PT INR APTT Fibrinogen D-Dimer POC ABG pH 7.491 H ABG pH POC ABG pCO2 26.6 L POC ABG pO2 Sodium Potassium Chloride Carbon Dioxide BUN Creatinine 0.4 L Glucose 191 H POC Glucose Lactic Acid Calcium 7.7 L Iron TIBC Total Creatine Kinase Troponin T Albumin LDL Cholesterol Direct HDL Cholesterol Vitamin B12 Urine WBC (Auto) Vancomycin Trough 08/01/17 08/01/17 08/01/17 11:47 17:40 17:40 WBC RBC Hgb Hct MCV MCH RDW Lymph % (Auto) Seg Neutrophils % Seg Neuts % (Manual) Lymphocytes % (Manual) Nucleated RBC % Seg Neutrophils # Seg Neutrophils # Man Lymphocytes # (Manual) Monocytes # (Manual) PT 20.4 H INR 1.64 H APTT Fibrinogen D-Dimer POC ABG pH ABG pH POC ABG pCO2 POC ABG pO2 Sodium Potassium Chloride Carbon Dioxide BUN Creatinine Glucose POC Glucose 289 H Lactic Acid Calcium Iron 17 L TIBC 103 L Total Creatine Kinase Troponin T Albumin LDL Cholesterol Direct HDL Cholesterol Vitamin B12 Urine WBC (Auto) Vancomycin Trough 08/01/17 08/01/17 08/01/17 17:40 17:43 23:48 WBC RBC Hgb Hct MCV MCH RDW Lymph % (Auto) Seg Neutrophils % Seg Neuts % (Manual) Lymphocytes % (Manual) Nucleated RBC % Seg Neutrophils # Seg Neutrophils # Man Lymphocytes # (Manual) Monocytes # (Manual) PT INR APTT Fibrinogen D-Dimer POC ABG pH ABG pH POC ABG pCO2 POC ABG pO2 Sodium Potassium Chloride Carbon Dioxide BUN Creatinine Glucose POC Glucose 254 H 248 H Lactic Acid Calcium Iron TIBC Total Creatine Kinase Troponin T Albumin LDL Cholesterol Direct HDL Cholesterol Vitamin B12 1830 H Urine WBC (Auto) Vancomycin Trough 08/02/17 08/02/17 08/02/17 03:56 04:00 04:00 WBC 12.7 H RBC 3.04 L Hgb 7.2 L Hct 22.8 L MCV 75 L MCH 24 L RDW 18.0 H Lymph % (Auto) 13.1 L Seg Neutrophils % 81.5 H Seg Neuts % (Manual) Lymphocytes % (Manual) Nucleated RBC % Seg Neutrophils # 10.3 H Seg Neutrophils # Man Lymphocytes # (Manual) Monocytes # (Manual) PT INR APTT Fibrinogen D-Dimer POC ABG pH 7.537 H ABG pH POC ABG pCO2 28.4 L POC ABG pO2 109 H Sodium Potassium 3.0 L Chloride 109.0 H Carbon Dioxide 20 L BUN 6 L Creatinine 0.3 L Glucose 196 H POC Glucose Lactic Acid Calcium 6.3 L D Iron TIBC Total Creatine Kinase Troponin T Albumin LDL Cholesterol Direct HDL Cholesterol Vitamin B12 Urine WBC (Auto) Vancomycin Trough 08/02/17 08/02/17 08/02/17 05:20 10:00 12:16 WBC RBC Hgb Hct MCV MCH RDW Lymph % (Auto) Seg Neutrophils % Seg Neuts % (Manual) Lymphocytes % (Manual) Nucleated RBC % Seg Neutrophils # Seg Neutrophils # Man Lymphocytes # (Manual) Monocytes # (Manual) PT 18.6 H INR 1.46 H APTT Fibrinogen D-Dimer POC ABG pH ABG pH POC ABG pCO2 POC ABG pO2 Sodium Potassium Chloride Carbon Dioxide BUN Creatinine Glucose POC Glucose 295 H 296 H Lactic Acid Calcium Iron TIBC Total Creatine Kinase Troponin T Albumin LDL Cholesterol Direct HDL Cholesterol Vitamin B12 Urine WBC (Auto) Vancomycin Trough Chest x-ray: report reviewed (slight left lower lobe infiltrate unchanged)
--- NOTE | 2017-08-02 13:23 | Progress Note ---
Assessment and Plan Assessment and plan: Septic shock - Patient is managed according to sepsis protocol, IV antibiotics, fluids - Patient is off pressors now Pneumonia - continue IV antibiotics - Blood culture no growth so far Respiratory failure on trach -Pulmonary is following - Trach Anoxic brain injury, patient is on PEG and trach chronically Coumadin toxicity -INR is dropping down - hematology oncology consulted Dr Dickerson, who is her primary care Dr History of multiple strokes - Patient is bedbound Nutrition - Through PEG tubes, GI consult appreciated Disposition - Continue ICU care The high probability of a clinically significant, sudden or life threatening deterioration of the [cv, neurology] system(s) required my full and direct attention, intervention and personal management. The aggregate critical care time was [34] minutes. This time is in addition to time spent performing reported procedures but includes the following: [x] Data Review and interpretation [x] Patient assessment and monitoring of vital signs [x] Documentation [x] Medication orders and management History Interval history: Patient was seen and evaluated this morning, patient is comatose, on PEG and trach, on MV. Hospitalist Physical - Physical exam Narrative exam: Patient is comatose, on PEG and trach, on A/C. Vital signs as documented. Head exam is unremarkable. No scleral icterus . Neck is without jugular venous distension, thyromegaly, or carotid bruits. Lungs are clear to auscultation. Cardiac exam reveals regular rate and Rhythm. First and second heart sounds normal. No murmurs, rubs or gallops. Abdominal exam reveals normal bowel sounds, no masses, no organomegaly and no aortic enlargement. Extremities contracted, decubitus ulcer. INFORMATION RESOURCES DIRECTOR: patient is comatose. - Constitutional Vitals: Temp Pulse Resp BP Pulse Ox 99.4 F 73 18 113/59 99 08/02/17 12:01 08/02/17 13:08 08/02/17 13:08 08/02/17 13:04 08/02/17 13:04 General appearance: Present: mild distress Results - Labs CBC & Chem 7: 08/02/17 04:00 08/02/17 04:00 Labs: Laboratory Last Values WBC 12.7 K/mm3 (4.5-11.0) H 08/02/17 04:00 RBC 3.04 M/mm3 (3.65-5.03) L 08/02/17 04:00 Hgb 7.2 gm/dl (10.1-14.3) L 08/02/17 04:00 Hct 22.8 % (30.3-42.9) L 08/02/17 04:00 MCV 75 fl (79-97) L 08/02/17 04:00 MCH 24 pg (28-32) L 08/02/17 04:00 MCHC 32 % (30-34) 08/02/17 04:00 RDW 18.0 % (13.2-15.2) H 08/02/17 04:00 Plt Count 227 K/mm3 (140-440) 08/02/17 04:00 Lymph % (Auto) 13.1 % (13.4-35.0) L 08/02/17 04:00 [place] % (Auto) 4.2 % (0.0-7.3) 08/02/17 04:00 Eos % (Auto) 1.1 % (0.0-4.3) 08/02/17 04:00 Baso % (Auto) 0.1 % (0.0-1.8) 08/02/17 04:00 Lymph # 1.7 K/mm3 (1.2-5.4) 08/02/17 04:00 Frontier # 0.5 K/mm3 (0.0-0.8) 08/02/17 04:00 Eos # 0.1 K/mm3 (0.0-0.4) 08/02/17 04:00 Baso # 0.0 K/mm3 (0.0-0.1) 08/02/17 04:00 Add Manual Diff Complete 07/30/17 16:52 Total Counted 100 07/30/17 16:52 Seg Neutrophils % 81.5 % (40.0-70.0) H 08/02/17 04:00 Seg Neuts % (Manual) 89.0 % (40.0-70.0) H 07/30/17 16:52 Band Neutrophils % 0 % 07/30/17 16:52 Lymphocytes % (Manual) 7.0 % (13.4-35.0) L 07/30/17 16:52 Reactive Lymphs % (Man) 0 % 07/30/17 16:52 Monocytes % (Manual) 4.0 % (0.0-7.3) 07/30/17 16:52 Eosinophils % (Manual) 0 % (0.0-4.3) 07/30/17 16:52 Basophils % (Manual) 0 % (0.0-1.8) 07/30/17 16:52 Metamyelocytes % 0 % 07/30/17 16:52 Myelocytes % 0 % 07/30/17 16:52 Promyelocytes % 0 % 07/30/17 16:52 Blast Cells % 0 % 07/30/17 16:52 Nucleated RBC % Not Reportable 07/30/17 16:52 Seg Neutrophils # 10.3 K/mm3 (1.8-7.7) H 08/02/17 04:00 Seg Neutrophils # Man 20.4 K/mm3 (1.8-7.7) H 07/30/17 16:52 Band Neutrophils # 0.0 K/mm3 07/30/17 16:52 Lymphocytes # (Manual) 1.6 K/mm3 (1.2-5.4) 07/30/17 16:52 Abs React Lymphs (Man) 0.0 K/mm3 07/30/17 16:52 Monocytes # (Manual) 0.9 K/mm3 (0.0-0.8) H 07/30/17 16:52 Eosinophils # (Manual) 0.0 K/mm3 (0.0-0.4) 07/30/17 16:52 Basophils # (Manual) 0.0 K/mm3 (0.0-0.1) 07/30/17 16:52 Metamyelocytes # 0.0 K/mm3 07/30/17 16:52 Myelocytes # 0.0 K/mm3 07/30/17 16:52 Promyelocytes # 0.0 K/mm3 07/30/17 16:52 Blast Cells # 0.0 K/mm3 07/30/17 16:52 WBC Morphology Not Reportable 07/30/17 16:52 Hypersegmented Neuts Not Reportable 07/30/17 16:52 Hyposegmented Neuts Not Reportable 07/30/17 16:52 Hypogranular Neuts Not Reportable 07/30/17 16:52 Smudge Cells Not Reportable 07/30/17 16:52 Toxic Granulation Not Reportable 07/30/17 16:52 Toxic Vacuolation Not Reportable 07/30/17 16:52 Dohle Bodies Not Reportable 07/30/17 16:52 Pelger-Huet Anomaly Not Reportable 07/30/17 16:52 Zach Rods Not Reportable 07/30/17 16:52 Platelet Estimate Consistent w auto 07/30/17 16:52 Clumped Platelets Not Reportable 07/30/17 16:52 Plt Clumps, EDTA Not Reportable 07/30/17 16:52 Large Platelets 1+ 07/30/17 16:52 Giant Platelets Not Reportable 07/30/17 16:52 Platelet Satelliting Not Reportable 07/30/17 16:52 Plt Morphology Comment Not Reportable 07/30/17 16:52 RBC Morphology Not Reportable 07/30/17 16:52 Dimorphic RBCs Not Reportable 07/30/17 16:52 Polychromasia Not Reportable 07/30/17 16:52 Hypochromasia 1+ 07/30/17 16:52 Poikilocytosis 1+ 07/30/17 16:52 Anisocytosis 1+ 07/30/17 16:52 Microcytosis Not Reportable 07/30/17 16:52 Macrocytosis Not Reportable 07/30/17 16:52 Spherocytes Not Reportable 07/30/17 16:52 Pappenheimer Bodies Not Reportable 07/30/17 16:52 Sickle Cells Not Reportable 07/30/17 16:52 Target Cells Not Reportable 07/30/17 16:52 Tear Drop Cells Not Reportable 07/30/17 16:52 Ovalocytes Not Reportable 07/30/17 16:52 Helmet Cells Not Reportable 07/30/17 16:52 Monson-Mcconnico Bodies Not Reportable 07/30/17 16:52 [place] Rings Not Reportable 07/30/17 16:52 Roca Cells Not Reportable 07/30/17 16:52 Bite Cells Not Reportable 07/30/17 16:52 Crenated Cell Not Reportable 07/30/17 16:52 Elliptocytes Not Reportable 07/30/17 16:52 Acanthocytes (Spur) Not Reportable 07/30/17 16:52 Rouleaux Not Reportable 07/30/17 16:52 Hemoglobin C Crystals Not Reportable 07/30/17 16:52 Schistocytes Not Reportable 07/30/17 16:52 Malaria parasites Not Reportable 07/30/17 16:52 He Bodies Not Reportable 07/30/17 16:52 Hem Pathologist Commnt No 07/30/17 16:52 PT 18.6 Sec. (12.2-14.9) H 08/02/17 10:00 INR 1.46 (0.87-1.13) H 08/02/17 10:00 APTT 53.6 Sec. (24.2-36.6) H 07/31/17 04:00 Fibrinogen 651 mg/dl (211-480) H 07/30/17 16:55 D-Dimer 1885.58 ng/mlDDU (0-234) H 07/30/17 16:55 POC ABG pH 7.537 (7.35-7.45) H 08/02/17 03:56 ABG pH 7.327 pH Units (7.350-7.450) L 07/29/17 01:41 POC ABG pCO2 28.4 (35-45) L 08/02/17 03:56 ABG pCO2 TNR 07/29/17 01:41 POC ABG pO2 109 (80-105) H 08/02/17 03:56 ABG pO2 TNR 07/29/17 01:41 POC ABG HCO3 24.1 08/02/17 03:56 ABG HCO3 TNR 07/29/17 01:41 POC ABG Total CO2 25 08/02/17 03:56 POC ABG O2 Sat 99 08/02/17 03:56 ABG O2 Saturation TNR 07/29/17 01:41 ABG O2 Content TNR 07/29/17 01:41 POC ABG Base Excess 2 08/02/17 03:56 ABG Base Excess TNR 07/29/17 01:41 ABG Hemoglobin TNR 07/29/17 01:41 ABG Carboxyhemoglobin TNR 07/29/17 01:41 ABG Methemoglobin TNR 07/29/17 01:41 VBG pH 7.327 (7.320-7.420) 07/29/17 01:41 Oxyhemoglobin TNR 07/29/17 01:41 FiO2 30 % 08/02/17 03:56 Sodium 140 mmol/L (137-145) 08/02/17 04:00 Potassium 3.0 mmol/L (3.6-5.0) L 08/02/17 04:00 Chloride 109.0 mmol/L (98-107) H 08/02/17 04:00 Carbon Dioxide 20 mmol/L (22-30) L 08/02/17 04:00 Anion Gap 14 mmol/L 08/02/17 04:00 BUN 6 mg/dL (7-17) L 08/02/17 04:00 Creatinine 0.3 mg/dL (0.7-1.2) L 08/02/17 04:00 Estimated GFR > 60 ml/min 08/02/17 04:00 BUN/Creatinine Ratio 20 % 08/02/17 04:00 Glucose 196 mg/dL (65-100) H 08/02/17 04:00 POC Glucose 296 (70-105) H 08/02/17 12:16 Lactic Acid 1.50 mmol/L (0.7-2.0) 07/31/17 10:45 Calcium 6.3 mg/dL (8.4-10.2) L D 08/02/17 04:00 Iron 17 ug/dL (37-170) L 08/01/17 17:40 TIBC 103 mcg/dL (250-450) L 08/01/17 17:40 Total Bilirubin 0.20 mg/dL (0.1-1.2) 07/29/17 01:41 AST 27 units/L (5-40) 07/29/17 01:41 ALT 55 units/L (7-56) 07/29/17 01:41 Alkaline Phosphatase 109 units/L (35-129) 07/29/17 01:41 Lactate Dehydrogenase 148 units/L (91-180) 08/01/17 17:40 Total Creatine Kinase 179 units/L (30-135) H 07/29/17 10:05 CK-MB (CK-2) 3.0 ng/mL (0.0-4.0) 07/29/17 10:05 CK-MB (CK-2) Rel Index 1.6 (0-4) 07/29/17 10:05 Troponin T 0.093 ng/mL (0.00-0.029) H 07/29/17 10:05 Total Protein 6.5 g/dL (6.3-8.2) 07/29/17 01:41 Albumin 2.0 g/dL (3.9-5) L 07/29/17 01:41 Albumin/Globulin Ratio 0.4 % 07/29/17 01:41 Triglycerides 115 mg/dL (2-149) 07/29/17 01:41 Cholesterol 50 mg/dL (50-199) 07/29/17 01:41 LDL Cholesterol Direct 14 mg/dL (50-130) L 07/29/17 01:41 HDL Cholesterol 13 mg/dL (40-59) L 07/29/17 01:41 Cholesterol/HDL Ratio 3.84 % 07/29/17 01:41 Vitamin B12 1830 pg/mL (211-911) H 08/01/17 17:40 Urine Color Yellow (Yellow) 07/29/17 Unknown Urine Turbidity Turbid (Clear) 07/29/17 Unknown Urine pH 5.0 (5.0-7.0) 07/29/17 Unknown Ur Specific [place] 1.024 (1.003-1.030) 07/29/17 Unknown Urine Protein 30 mg/dl mg/dL (Negative) 07/29/17 Unknown Urine Glucose (UA) >=500 mg/dL (Negative) 07/29/17 Unknown Urine Ketones Neg mg/dL (Negative) 07/29/17 Unknown Urine Blood Lg (Negative) 07/29/17 Unknown Urine Nitrite Neg (Negative) 07/29/17 Unknown Urine Bilirubin Neg (Negative) 07/29/17 Unknown Urine Urobilinogen < 2.0 mg/dL (<2.0) 07/29/17 Unknown Ur Leukocyte Esterase Mod (Negative) 07/29/17 Unknown Urine WBC (Auto) 169.0 /HPF (0.0-6.0) H 07/29/17 Unknown Urine RBC (Auto) > 182.0 /HPF (0.0-6.0) 07/29/17 Unknown U Epithel Cells (Auto) 9.0 /HPF (0-13.0) 07/29/17 Unknown Urine Bacteria (Auto) 4+ /HPF (Negative) 07/29/17 Unknown Urine WBC Clumps 3+ /HPF 07/29/17 Unknown Urine Mucus 1+ /HPF 07/29/17 Unknown Ur Yeast w Hyphae 1+ /HPF 07/29/17 Unknown Urine Yeast (Budding) 3+ /HPF 07/29/17 Unknown Vancomycin Trough 12.3 ug/mL (5.0-20.0) 08/01/17 15:29
[2017-08-02] MEDS ORDERED: POTASSIUM CHLORIDE FEEDTUBE ONE (14:00)
--- NOTE | 2017-08-02 17:36 | Progress Note ---
Assessment and Plan - Patient Problems (1) Pneumonia Current Visit: Yes Status: Acute Plan to address problem: follow pulmonary. (2) Left foot infection Current Visit: Yes Status: Acute Plan to address problem: Follow vascular. (3) Feeding by G-tube Current Visit: Yes Status: Acute Plan to address problem: tube care/management. (4) Coagulopathy Current Visit: Yes Status: Acute Plan to address problem: Monitor coags, and adjust as needed. Subjective Date of service: 08/02/17 Interval history: Patient seen/examined, resting in bed, VSS, afebrile. She desarts to the 60% when on her left side, and 100% on her right side. She has the PNA on the left side.labs reviewed, INR 1.46 Objective - Constitutional Vitals: Vital Signs - 12hr 08/02/17 08/02/17 08/02/17 05:41 05:51 06:01 Temperature Pulse Rate 88 81 90 Pulse Rate [ Anterior Throughout] Respiratory 12 12 23 Rate Respiratory Rate [Anterior Throughout] Blood Pressure 121/61 107/28 84/43 O2 Sat by Pulse 100 100 99 Oximetry 08/02/17 08/02/17 08/02/17 06:11 06:21 06:31 Temperature Pulse Rate 81 84 69 Pulse Rate [ Anterior Throughout] Respiratory 14 13 13 Rate Respiratory Rate [Anterior Throughout] Blood Pressure 84/43 76/40 86/47 O2 Sat by Pulse 98 100 100 Oximetry 08/02/17 08/02/17 08/02/17 06:41 06:51 07:00 Temperature Pulse Rate 69 65 70 Pulse Rate [ Anterior Throughout] Respiratory 13 14 14 Rate Respiratory Rate [Anterior Throughout] Blood Pressure 86/47 95/53 104/59 O2 Sat by Pulse 100 100 100 Oximetry 08/02/17 08/02/17 08/02/17 07:11 07:21 07:31 Temperature Pulse Rate 69 67 68 Pulse Rate [ Anterior Throughout] Respiratory 15 16 15 Rate Respiratory Rate [Anterior Throughout] Blood Pressure 104/59 115/55 113/51 O2 Sat by Pulse 100 100 100 Oximetry 08/02/17 08/02/17 08/02/17 07:41 07:51 08:00 Temperature Pulse Rate 72 73 100 H Pulse Rate [ 99 H Anterior Throughout] Respiratory 16 17 Rate Respiratory 19 Rate [Anterior Throughout] Blood Pressure 113/51 113/51 105/67 O2 Sat by Pulse 100 100 99 Oximetry 08/02/17 08/02/17 08/02/17 08:01 08:10 08:11 Temperature Pulse Rate 72 72 Pulse Rate [ 100 H Anterior Throughout] Respiratory 16 13 Rate Respiratory 14 Rate [Anterior Throughout] Blood Pressure 105/50 105/50 O2 Sat by Pulse 100 100 Oximetry 08/02/17 08/02/17 08/02/17 08:21 08:30 08:41 Temperature Pulse Rate 76 70 72 Pulse Rate [ Anterior Throughout] Respiratory 14 12 16 Rate Respiratory Rate [Anterior Throughout] Blood Pressure 102/53 108/51 108/51 O2 Sat by Pulse 100 100 100 Oximetry 08/02/17 08/02/17 08/02/17 08:45 08:51 09:01 Temperature Pulse Rate 73 72 Pulse Rate [ Anterior Throughout] Respiratory 26 H 12 13 Rate Respiratory Rate [Anterior Throughout] Blood Pressure 102/50 99/48 O2 Sat by Pulse 98 100 100 Oximetry 08/02/17 08/02/17 08/02/17 09:11 09:20 09:30 Temperature Pulse Rate 89 97 H 96 H Pulse Rate [ Anterior Throughout] Respiratory 12 26 H 29 H Rate Respiratory Rate [Anterior Throughout] Blood Pressure 99/48 105/67 100/64 O2 Sat by Pulse 100 100 99 Oximetry 08/02/17 08/02/17 08/02/17 09:41 09:51 10:00 Temperature Pulse Rate 99 H 97 H 96 H Pulse Rate [ Anterior Throughout] Respiratory 28 H 26 H 21 Rate Respiratory Rate [Anterior Throughout] Blood Pressure 100/64 89/58 92/61 O2 Sat by Pulse 98 98 99 Oximetry 08/02/17 08/02/17 08/02/17 10:11 10:21 10:30 Temperature Pulse Rate 96 H 96 H 96 H Pulse Rate [ Anterior Throughout] Respiratory 25 H 13 8 L Rate Respiratory Rate [Anterior Throughout] Blood Pressure 92/61 91/60 92/66 O2 Sat by Pulse 99 100 97 Oximetry 08/02/17 08/02/17 08/02/17 10:41 10:51 11:00 Temperature Pulse Rate 84 91 H 90 Pulse Rate [ Anterior Throughout] Respiratory 26 H 25 H 24 Rate Respiratory Rate [Anterior Throughout] Blood Pressure 92/66 93/59 91/59 O2 Sat by Pulse 100 100 100 Oximetry 08/02/17 08/02/17 08/02/17 11:11 11:21 11:30 Temperature Pulse Rate 92 H 89 86 Pulse Rate [ Anterior Throughout] Respiratory 15 23 23 Rate Respiratory Rate [Anterior Throughout] Blood Pressure 91/59 89/57 93/57 O2 Sat by Pulse 100 100 100 Oximetry 08/02/17 08/02/17 08/02/17 11:41 11:51 12:00 Temperature Pulse Rate 88 88 89 Pulse Rate [ Anterior Throughout] Respiratory 24 25 H 24 Rate Respiratory Rate [Anterior Throughout] Blood Pressure 93/57 94/60 92/61 O2 Sat by Pulse 100 100 100 Oximetry 08/02/17 08/02/17 08/02/17 12:01 12:11 12:21 Temperature 99.4 F Pulse Rate 88 89 Pulse Rate [ Anterior Throughout] Respiratory 23 22 Rate Respiratory Rate [Anterior Throughout] Blood Pressure 92/61 92/61 O2 Sat by Pulse 100 100 Oximetry 08/02/17 08/02/17 08/02/17 12:25 12:31 12:41 Temperature Pulse Rate 85 82 Pulse Rate [ Anterior Throughout] Respiratory 22 23 26 H Rate Respiratory Rate [Anterior Throughout] Blood Pressure 75/40 75/40 O2 Sat by Pulse 100 100 100 Oximetry 08/02/17 08/02/17 08/02/17 12:51 13:01 13:04 Temperature Pulse Rate 71 76 75 Pulse Rate [ Anterior Throughout] Respiratory 23 26 H 24 Rate Respiratory Rate [Anterior Throughout] Blood Pressure 105/51 113/59 113/59 O2 Sat by Pulse 100 100 99 Oximetry 08/02/17 08/02/17 08/02/17 13:08 13:11 13:21 Temperature Pulse Rate 72 79 Pulse Rate [ 73 Anterior Throughout] Respiratory 24 24 Rate Respiratory 18 Rate [Anterior Throughout] Blood Pressure 113/59 93/45 O2 Sat by Pulse 100 100 Oximetry 08/02/17 08/02/17 08/02/17 13:30 13:41 13:51 Temperature Pulse Rate 89 89 87 Pulse Rate [ Anterior Throughout] Respiratory 21 23 25 H Rate Respiratory Rate [Anterior Throughout] Blood Pressure 87/56 87/56 91/49 O2 Sat by Pulse 100 100 100 Oximetry 08/02/17 08/02/17 08/02/17 14:00 14:11 14:21 Temperature Pulse Rate 86 75 73 Pulse Rate [ Anterior Throughout] Respiratory 26 H 26 H 26 H Rate Respiratory Rate [Anterior Throughout] Blood Pressure 84/45 94/45 108/45 O2 Sat by Pulse 100 100 100 Oximetry 08/02/17 08/02/17 08/02/17 14:31 14:41 14:51 Temperature Pulse Rate 95 H 82 86 Pulse Rate [ Anterior Throughout] Respiratory 29 H 26 H 25 H Rate Respiratory Rate [Anterior Throughout] Blood Pressure 119/53 119/53 108/51 O2 Sat by Pulse 100 100 100 Oximetry 08/02/17 08/02/17 15:01 15:31 Temperature Pulse Rate 79 Pulse Rate [ Anterior Throughout] Respiratory 24 22 Rate Respiratory Rate [Anterior Throughout] Blood Pressure 100/51 O2 Sat by Pulse 100 100 Oximetry General appearance: Present: no acute distress - EENT Eyes: PERRL, EOM intact ENT: hearing intact, clear oral mucosa Ears: bilateral: normal - Neck Neck: supple, normal ROM - Respiratory Respiratory: bilateral: diminished - Breasts Breasts: deferred - Cardiovascular Rhythm: regular Heart Sounds: Present: S1 & S2. Absent: gallop, rub Extremities: pulses intact, No edema, normal color, Full ROM - Gastrointestinal General gastrointestinal: Present: soft, non-tender, non-distended, normal bowel sounds Rectal Exam: deferred - Genitourinary Female genitourinary: deferred - Integumentary Integumentary: clear, warm, dry - Musculoskeletal Musculoskeletal: 1, strength equal bilaterally - Neurologic Neurologic: moves all extremities - Psychiatric Psychiatric: appropriate mood/affect - Labs CBC & Chem 7: 08/02/17 04:00 08/02/17 04:00 Labs: Abnormal lab results 08/01/17 08/01/17 08/01/17 Range/Units 17:40 17:40 17:40 WBC (4.5-11.0) K/mm3 RBC (3.65-5.03) M/mm3 Hgb (10.1-14.3) gm/dl Hct (30.3-42.9) % MCV (79-97) fl MCH (28-32) pg RDW (13.2-15.2) % Lymph % (Auto) (13.4-35.0) % Seg Neutrophils % (40.0-70.0) % Seg Neutrophils # (1.8-7.7) K/mm3 PT 20.4 H (12.2-14.9) Sec. INR 1.64 H (0.87-1.13) POC ABG pH (7.35-7.45) POC ABG pCO2 (35-45) POC ABG pO2 (80-105) Potassium (3.6-5.0) mmol/L Chloride (98-107) mmol/L Carbon Dioxide (22-30) mmol/L BUN (7-17) mg/dL Creatinine (0.7-1.2) mg/dL Glucose (65-100) mg/dL POC Glucose (70-105) Calcium (8.4-10.2) mg/dL Iron 17 L (37-170) ug/dL TIBC 103 L (250-450) mcg/dL Vitamin B12 1830 H (211-911) pg/mL 08/01/17 08/01/17 08/02/17 Range/Units 17:43 23:48 03:56 WBC (4.5-11.0) K/mm3 RBC (3.65-5.03) M/mm3 Hgb (10.1-14.3) gm/dl Hct (30.3-42.9) % MCV (79-97) fl MCH (28-32) pg RDW (13.2-15.2) % Lymph % (Auto) (13.4-35.0) % Seg Neutrophils % (40.0-70.0) % Seg Neutrophils # (1.8-7.7) K/mm3 PT (12.2-14.9) Sec. INR (0.87-1.13) POC ABG pH 7.537 H (7.35-7.45) POC ABG pCO2 28.4 L (35-45) POC ABG pO2 109 H (80-105) Potassium (3.6-5.0) mmol/L Chloride (98-107) mmol/L Carbon Dioxide (22-30) mmol/L BUN (7-17) mg/dL Creatinine (0.7-1.2) mg/dL Glucose (65-100) mg/dL POC Glucose 254 H 248 H (70-105) Calcium (8.4-10.2) mg/dL Iron (37-170) ug/dL TIBC (250-450) mcg/dL Vitamin B12 (211-911) pg/mL 08/02/17 08/02/17 08/02/17 Range/Units 04:00 04:00 05:20 WBC 12.7 H (4.5-11.0) K/mm3 RBC 3.04 L (3.65-5.03) M/mm3 Hgb 7.2 L (10.1-14.3) gm/dl Hct 22.8 L (30.3-42.9) % MCV 75 L (79-97) fl MCH 24 L (28-32) pg RDW 18.0 H (13.2-15.2) % Lymph % (Auto) 13.1 L (13.4-35.0) % Seg Neutrophils % 81.5 H (40.0-70.0) % Seg Neutrophils # 10.3 H (1.8-7.7) K/mm3 PT (12.2-14.9) Sec. INR (0.87-1.13) POC ABG pH (7.35-7.45) POC ABG pCO2 (35-45) POC ABG pO2 (80-105) Potassium 3.0 L (3.6-5.0) mmol/L Chloride 109.0 H (98-107) mmol/L Carbon Dioxide 20 L (22-30) mmol/L BUN 6 L (7-17) mg/dL Creatinine 0.3 L (0.7-1.2) mg/dL Glucose 196 H (65-100) mg/dL POC Glucose 295 H (70-105) Calcium 6.3 L D (8.4-10.2) mg/dL Iron (37-170) ug/dL TIBC (250-450) mcg/dL Vitamin B12 (211-911) pg/mL 08/02/17 08/02/17 08/02/17 Range/Units 10:00 12:16 13:10 WBC (4.5-11.0) K/mm3 RBC (3.65-5.03) M/mm3 Hgb (10.1-14.3) gm/dl Hct (30.3-42.9) % MCV (79-97) fl MCH (28-32) pg RDW (13.2-15.2) % Lymph % (Auto) (13.4-35.0) % Seg Neutrophils % (40.0-70.0) % Seg Neutrophils # (1.8-7.7) K/mm3 PT 18.6 H (12.2-14.9) Sec. INR 1.46 H (0.87-1.13) POC ABG pH 7.500 H (7.35-7.45) POC ABG pCO2 31.9 L (35-45) POC ABG pO2 107 H (80-105) Potassium (3.6-5.0) mmol/L Chloride (98-107) mmol/L Carbon Dioxide (22-30) mmol/L BUN (7-17) mg/dL Creatinine (0.7-1.2) mg/dL Glucose (65-100) mg/dL POC Glucose 296 H (70-105) Calcium (8.4-10.2) mg/dL Iron (37-170) ug/dL TIBC (250-450) mcg/dL Vitamin B12 (211-911) pg/mL
[2017-08-02] MEDS: LANTUS SUB-Q SCH (21:06)
[2017-08-03] MEDS: HumaLOG SUB-Q SCH ×4 (01:14→19:49)
[2017-08-03 03:50] LABS: Basophils % (Auto) 0.1 % (0.0-1.8); Eosinophils # (Auto) 0.2 K/mm3 (0.0-0.4); Eosinophils % (Auto) 1.9 % (0.0-4.3); Hematocrit 20.2 % (30.3-42.9); Hemoglobin 6.5 gm/dl (10.1-14.3); Lymphocytes # (Auto) 1.4 K/mm3 (1.2-5.4); Lymphocytes % (Auto) 14.7 % (13.4-35.0); Mean Corpuscular HGB Conc 32 % (30-34); Mean Corpuscular Volume 76 fl (79-97); Monocytes # (Auto) 0.7 K/mm3 (0.0-0.8); Monocytes % (Auto) 7.4 % (0.0-7.3); Platelet Count 231 K/mm3 (140-440); Red Blood Count 2.67 M/mm3 (3.65-5.03); Red Cell Distribution Width 18.3 % (13.2-15.2)
[2017-08-03 03:53] LABS: BUN/Creatinine Ratio 23; Blood Urea Nitrogen 7 mg/dL (7-17); Calcium 7.5 mg/dL (8.4-10.2); Hemolysis Index 3
[2017-08-03 03:54] LABS: Mean Corpuscular Hemoglobin 24 pg (28-32)
[2017-08-03] MEDS: VANCOMYCIN/0.45 NS 1 GM/250 ML 1 GM/250 ML BAG IV SCH (04:00)
[2017-08-03] MEDS: ZOSYN/NS 3.375GM/50ML 3.375 GM/50 ML BAG IV SCH ×3 (05:32→19:48)
[2017-08-03] MEDS ORDERED: NACL 0.9% 500 ML 500 ML IV ONE (06:54)
[2017-08-03] MEDS: DUONEB *Not for PRN Use IH SCH ×3 (07:52→19:25)
[2017-08-03] MEDS: PEPCID PO SCH ×2 (12:50→21:57)
[2017-08-03] MEDS: ROBINUL PO SCH ×2 (12:50→21:58)
[2017-08-03] MEDS: NACL 0.45% 1000 ML 1,000 ML IV SCH (14:08)
[2017-08-03] MEDS ORDERED: NACL 0.9% 500 ML 500 ML ONE ×2 (14:33→20:18)
--- NOTE | 2017-08-03 14:38 | Progress Note ---
Assessment and Plan Assessment and plan: Septic shock - Patient is managed according to sepsis protocol, IV antibiotics, fluids - Patient is off pressors now Pneumonia - continue IV antibiotics - Blood culture no growth so far Respiratory failure on trach -Pulmonary is following - Trach Anoxic brain injury, patient is on PEG and trach chronically Coumadin toxicity -INR is dropping down - hematology oncology consulted Dr Dickerson, who is her primary care Dr Severe anemia - patient transfused with 2 units of blood pending Post transfusion H/H History of multiple strokes - Patient is bedbound Nutrition - Through PEG tubes, GI consult appreciated Disposition - Continue ICU care The high probability of a clinically significant, sudden or life threatening deterioration of the [cv, neurology] system(s) required my full and direct attention, intervention and personal management. The aggregate critical care time was [34] minutes. This time is in addition to time spent performing reported procedures but includes the following: [x] Data Review and interpretation [x] Patient assessment and monitoring of vital signs [x] Documentation [x] Medication orders and management History Interval history: Patient was seen and evaluated this morning, patient is comatose, on PEG and trach, on MV. Hospitalist Physical - Physical exam Narrative exam: Patient is comatose, on PEG and trach, on A/C. Vital signs as documented. Head exam is unremarkable. No scleral icterus . Neck is without jugular venous distension, thyromegaly, or carotid bruits. Lungs are clear to auscultation. Cardiac exam reveals regular rate and Rhythm. First and second heart sounds normal. No murmurs, rubs or gallops. Abdominal exam reveals normal bowel sounds, no masses, no organomegaly and no aortic enlargement. Extremities contracted, decubitus ulcer. KNITTER WIRE MESH: patient is comatose. - Constitutional Vitals: Temp Pulse Resp BP Pulse Ox 98.2 F 88 12 110/54 96 08/03/17 12:00 08/03/17 13:26 08/03/17 13:26 08/03/17 07:28 08/03/17 10:30 General appearance: Present: no acute distress Results - Labs CBC & Chem 7: 08/03/17 03:30 08/03/17 03:30 Labs: Laboratory Last Values WBC 9.4 K/mm3 (4.5-11.0) 08/03/17 03:30 RBC 2.67 M/mm3 (3.65-5.03) L 08/03/17 03:30 Hgb 6.5 gm/dl (10.1-14.3) L 08/03/17 03:30 Hct 20.2 % (30.3-42.9) L 08/03/17 03:30 MCV 76 fl (79-97) L 08/03/17 03:30 MCH 24 pg (28-32) L 08/03/17 03:30 MCHC 32 % (30-34) 08/03/17 03:30 RDW 18.3 % (13.2-15.2) H 08/03/17 03:30 Plt Count 231 K/mm3 (140-440) 08/03/17 03:30 Lymph % (Auto) 14.7 % (13.4-35.0) 08/03/17 03:30 [place] % (Auto) 7.4 % (0.0-7.3) H 08/03/17 03:30 Eos % (Auto) 1.9 % (0.0-4.3) 08/03/17 03:30 Baso % (Auto) 0.1 % (0.0-1.8) 08/03/17 03:30 Lymph # 1.4 K/mm3 (1.2-5.4) 08/03/17 03:30 [place] # 0.7 K/mm3 (0.0-0.8) 08/03/17 03:30 Eos # 0.2 K/mm3 (0.0-0.4) 08/03/17 03:30 Baso # 0.0 K/mm3 (0.0-0.1) 08/03/17 03:30 Add Manual Diff Complete 07/30/17 16:52 Total Counted 100 07/30/17 16:52 Seg Neutrophils % 75.9 % (40.0-70.0) H 08/03/17 03:30 Seg Neuts % (Manual) 89.0 % (40.0-70.0) H 07/30/17 16:52 Band Neutrophils % 0 % 07/30/17 16:52 Lymphocytes % (Manual) 7.0 % (13.4-35.0) L 07/30/17 16:52 Reactive Lymphs % (Man) 0 % 07/30/17 16:52 Monocytes % (Manual) 4.0 % (0.0-7.3) 07/30/17 16:52 Eosinophils % (Manual) 0 % (0.0-4.3) 07/30/17 16:52 Basophils % (Manual) 0 % (0.0-1.8) 07/30/17 16:52 Metamyelocytes % 0 % 07/30/17 16:52 Myelocytes % 0 % 07/30/17 16:52 Promyelocytes % 0 % 07/30/17 16:52 Blast Cells % 0 % 07/30/17 16:52 Nucleated RBC % Not Reportable 07/30/17 16:52 Seg Neutrophils # 7.1 K/mm3 (1.8-7.7) 08/03/17 03:30 Seg Neutrophils # Man 20.4 K/mm3 (1.8-7.7) H 07/30/17 16:52 Band Neutrophils # 0.0 K/mm3 07/30/17 16:52 Lymphocytes # (Manual) 1.6 K/mm3 (1.2-5.4) 07/30/17 16:52 Abs React Lymphs (Man) 0.0 K/mm3 07/30/17 16:52 Monocytes # (Manual) 0.9 K/mm3 (0.0-0.8) H 07/30/17 16:52 Eosinophils # (Manual) 0.0 K/mm3 (0.0-0.4) 07/30/17 16:52 Basophils # (Manual) 0.0 K/mm3 (0.0-0.1) 07/30/17 16:52 Metamyelocytes # 0.0 K/mm3 07/30/17 16:52 Myelocytes # 0.0 K/mm3 07/30/17 16:52 Promyelocytes # 0.0 K/mm3 07/30/17 16:52 Blast Cells # 0.0 K/mm3 07/30/17 16:52 WBC Morphology Not Reportable 07/30/17 16:52 Hypersegmented Neuts Not Reportable 07/30/17 16:52 Hyposegmented Neuts Not Reportable 07/30/17 16:52 Hypogranular Neuts Not Reportable 07/30/17 16:52 Smudge Cells Not Reportable 07/30/17 16:52 Toxic Granulation Not Reportable 07/30/17 16:52 Toxic Vacuolation Not Reportable 07/30/17 16:52 Dohle Bodies Not Reportable 07/30/17 16:52 Pelger-Huet Anomaly Not Reportable 07/30/17 16:52 Zach Rods Not Reportable 07/30/17 16:52 Platelet Estimate Consistent w auto 07/30/17 16:52 Clumped Platelets Not Reportable 07/30/17 16:52 Plt Clumps, EDTA Not Reportable 07/30/17 16:52 Large Platelets 1+ 07/30/17 16:52 Giant Platelets Not Reportable 07/30/17 16:52 Platelet Satelliting Not Reportable 07/30/17 16:52 Plt Morphology Comment Not Reportable 07/30/17 16:52 RBC Morphology Not Reportable 07/30/17 16:52 Dimorphic RBCs Not Reportable 07/30/17 16:52 Polychromasia Not Reportable 07/30/17 16:52 Hypochromasia 1+ 07/30/17 16:52 Poikilocytosis 1+ 07/30/17 16:52 Anisocytosis 1+ 07/30/17 16:52 Microcytosis Not Reportable 07/30/17 16:52 Macrocytosis Not Reportable 07/30/17 16:52 Spherocytes Not Reportable 07/30/17 16:52 Pappenheimer Bodies Not Reportable 07/30/17 16:52 Sickle Cells Not Reportable 07/30/17 16:52 Target Cells Not Reportable 07/30/17 16:52 Tear Drop Cells Not Reportable 07/30/17 16:52 Ovalocytes Not Reportable 07/30/17 16:52 Helmet Cells Not Reportable 07/30/17 16:52 [place] Bodies Not Reportable 07/30/17 16:52 [place] Rings Not Reportable 07/30/17 16:52 [place] Cells Not Reportable 07/30/17 16:52 Bite Cells Not Reportable 07/30/17 16:52 Crenated Cell Not Reportable 07/30/17 16:52 Elliptocytes Not Reportable 07/30/17 16:52 Acanthocytes (Spur) Not Reportable 07/30/17 16:52 Rouleaux Not Reportable 07/30/17 16:52 Hemoglobin C Crystals Not Reportable 07/30/17 16:52 Schistocytes Not Reportable 07/30/17 16:52 Malaria parasites Not Reportable 07/30/17 16:52 He Bodies Not Reportable 07/30/17 16:52 Hem Pathologist Commnt No 07/30/17 16:52 PT 18.6 Sec. (12.2-14.9) H 08/02/17 10:00 INR 1.46 (0.87-1.13) H 08/02/17 10:00 APTT 53.6 Sec. (24.2-36.6) H 07/31/17 04:00 Fibrinogen 651 mg/dl (211-480) H 07/30/17 16:55 D-Dimer 1885.58 ng/mlDDU (0-234) H 07/30/17 16:55 POC ABG pH 7.479 (7.35-7.45) H 08/03/17 05:14 ABG pH 7.327 pH Units (7.350-7.450) L 07/29/17 01:41 POC ABG pCO2 34.5 (35-45) L 08/03/17 05:14 ABG pCO2 TNR 07/29/17 01:41 POC ABG pO2 141 (80-105) H 08/03/17 05:14 ABG pO2 TNR 07/29/17 01:41 POC ABG HCO3 25.6 08/03/17 05:14 ABG HCO3 TNR 07/29/17 01:41 POC ABG Total CO2 27 08/03/17 05:14 POC ABG O2 Sat 99 08/03/17 05:14 ABG O2 Saturation TNR 07/29/17 01:41 ABG O2 Content TNR 07/29/17 01:41 POC ABG Base Excess 2 08/03/17 05:14 ABG Base Excess TNR 07/29/17 01:41 ABG Hemoglobin TNR 07/29/17 01:41 ABG Carboxyhemoglobin TNR 07/29/17 01:41 ABG Methemoglobin TNR 07/29/17 01:41 VBG pH 7.327 (7.320-7.420) 07/29/17 01:41 Oxyhemoglobin TNR 07/29/17 01:41 FiO2 30 % 08/03/17 05:14 Sodium 135 mmol/L (137-145) L 08/03/17 03:30 Potassium 3.7 mmol/L (3.6-5.0) D 08/03/17 03:30 Chloride 101.4 mmol/L (98-107) 08/03/17 03:30 Carbon Dioxide 26 mmol/L (22-30) 08/03/17 03:30 Anion Gap 11 mmol/L 08/03/17 03:30 BUN 7 mg/dL (7-17) 08/03/17 03:30 Creatinine 0.3 mg/dL (0.7-1.2) L 08/03/17 03:30 Estimated GFR > 60 ml/min 08/03/17 03:30 BUN/Creatinine Ratio 23 % 08/03/17 03:30 Glucose 207 mg/dL (65-100) H 08/03/17 03:30 POC Glucose 270 (70-105) H 08/03/17 12:11 Lactic Acid 1.50 mmol/L (0.7-2.0) 07/31/17 10:45 Calcium 7.5 mg/dL (8.4-10.2) L D 08/03/17 03:30 Iron 17 ug/dL (37-170) L 08/01/17 17:40 TIBC 103 mcg/dL (250-450) L 08/01/17 17:40 Total Bilirubin 0.20 mg/dL (0.1-1.2) 07/29/17 01:41 AST 27 units/L (5-40) 07/29/17 01:41 ALT 55 units/L (7-56) 07/29/17 01:41 Alkaline Phosphatase 109 units/L (35-129) 07/29/17 01:41 Lactate Dehydrogenase 148 units/L (91-180) 08/01/17 17:40 Total Creatine Kinase 179 units/L (30-135) H 07/29/17 10:05 CK-MB (CK-2) 3.0 ng/mL (0.0-4.0) 07/29/17 10:05 CK-MB (CK-2) Rel Index 1.6 (0-4) 07/29/17 10:05 Troponin T 0.093 ng/mL (0.00-0.029) H 07/29/17 10:05 Total Protein 6.5 g/dL (6.3-8.2) 07/29/17 01:41 Albumin 2.0 g/dL (3.9-5) L 07/29/17 01:41 Albumin/Globulin Ratio 0.4 % 07/29/17 01:41 Triglycerides 115 mg/dL (2-149) 07/29/17 01:41 Cholesterol 50 mg/dL (50-199) 07/29/17 01:41 LDL Cholesterol Direct 14 mg/dL (50-130) L 07/29/17 01:41 HDL Cholesterol 13 mg/dL (40-59) L 07/29/17 01:41 Cholesterol/HDL Ratio 3.84 % 07/29/17 01:41 Vitamin B12 1830 pg/mL (211-911) H 08/01/17 17:40 Urine Color Yellow (Yellow) 07/29/17 Unknown Urine Turbidity Turbid (Clear) 07/29/17 Unknown Urine pH 5.0 (5.0-7.0) 07/29/17 Unknown Ur Specific [place] 1.024 (1.003-1.030) 07/29/17 Unknown Urine Protein 30 mg/dl mg/dL (Negative) 07/29/17 Unknown Urine Glucose (UA) >=500 mg/dL (Negative) 07/29/17 Unknown Urine Ketones Neg mg/dL (Negative) 07/29/17 Unknown Urine Blood Lg (Negative) 07/29/17 Unknown Urine Nitrite Neg (Negative) 07/29/17 Unknown Urine Bilirubin Neg (Negative) 07/29/17 Unknown Urine Urobilinogen < 2.0 mg/dL (<2.0) 07/29/17 Unknown Ur Leukocyte Esterase Mod (Negative) 07/29/17 Unknown Urine WBC (Auto) 169.0 /HPF (0.0-6.0) H 07/29/17 Unknown Urine RBC (Auto) > 182.0 /HPF (0.0-6.0) 07/29/17 Unknown U Epithel Cells (Auto) 9.0 /HPF (0-13.0) 07/29/17 Unknown Urine Bacteria (Auto) 4+ /HPF (Negative) 07/29/17 Unknown Urine WBC Clumps 3+ /HPF 07/29/17 Unknown Urine Mucus 1+ /HPF 07/29/17 Unknown Ur Yeast w Hyphae 1+ /HPF 03/14/18 Unknown Urine Yeast (Budding) 3+ /HPF 07/29/17 Unknown Vancomycin Trough 12.3 ug/mL (5.0-20.0) 08/01/17 15:29 Blood Type O POSITIVE 08/03/17 08:03 Antibody Screen Negative 08/03/17 08:03 Crossmatch See Detail 08/03/17 08:03
[2017-08-03] MEDS ORDERED: CATHFLO IV SCH (15:29)
[2017-08-03] MEDS: SODIUM CHLORIDE FLUSH SYRINGE 10 ML IV SCH ×2 (15:36→21:58)
--- NOTE | 2017-08-03 15:38 | Progress Note ---
Assessment and Plan Imp: 1. LLL HCAP, POA 2. Probable UTI, POA 3. Severe sepsis w/ shock 4. DYLLAN, better 5. Hypernatremia, better 6. Anoxic encephalopathy 7. Hx of Dilated CMP Rec: 1. Wean Levophed to keep MAP > 65 2. 2 units of PRBCs today 3. PSV trials; possible T-piece trials soon 4. Complete ~ 7 day course of Zosyn vs. Pseudomonas from sputum and probable UTI 5. TFs, supportive, SCDs 6. There is a DNR form on her chart sent from the MD; I would clarify this with family as we will need to know whether to put her back on the ventilator if she fails T-piece trial No family present; CCT 31 minutes Subjective Date of service: 08/03/17 Principal diagnosis: A/C respiratory failure Interval history: No events. Tolerating PSV 8/5 but requires a back-up rate as otherwise she is having some apnea. She is unresponsive and cannot provide any history. Active Medications Acetaminophen (Tylenol) 650 mg MA Q4H PRN PRN Reason: Pain MILD(1-3)/Fever >100.5/JOLLY Last Admin: 08/01/17 20:11 Dose: 650 mg Albuterol/Ipratropium (Duoneb *Not For Prn Use*) 1 ampul IH TIDRT [facility] Last Admin: 08/03/17 13:20 Dose: 1 ampul Alteplase, Recombinant (Cathflo) 2 mg IV ONCE ONE Stop: 08/03/17 15:30 Lipase/Protease/Amylase (Pancreaze Dr 10,500 Unit) 1 each FEEDTUBE PRN PRN PRN Reason: For Clogged Feeding Tube Dextrose (D50w (25gm) Syringe) 50 ml IV PRN PRN PRN Reason: Hypoglycemia Famotidine (Pepcid) 20 mg PO BID [facility] Last Admin: 08/03/17 12:50 Dose: 20 mg Glycopyrrolate (Robinul) 1 mg PO BID [facility] Last Admin: 08/03/17 12:50 Dose: 1 mg Sodium Chloride (Nacl 0.45% 1000 Ml) 1,000 mls @ 75 mls/hr IV DIRECT [facility] Last Admin: 08/03/17 14:08 Dose: 75 mls/hr Norepinephrine (Levophed Drip 4 Mg/Ns 250 Ml) 4 mg in 250 mls @ 7.5 mls/hr IV TITR [facility]; Protocol Last Titration: 08/03/17 07:22 Dose: 5 mcg/min, 18.75 mls/hr Piperacillin Sod/Tazobactam Sod (Zosyn/Ns 3.375gm/50ml) 3.375 gm in 50 mls @ 100 mls/hr IV Q6HR [facility]; Protocol Last Admin: 08/03/17 14:17 Dose: 100 mls/hr Insulin Glargine (Lantus) 10 units SUB-Q QHS TIMMY Last Admin: 08/02/17 21:06 Dose: 10 units Insulin Human Lispro (Humalog) 0 unit SUB-Q Q6HR [facility]; Protocol Last Admin: 08/03/17 13:04 Dose: 4 unit Ondansetron HCl (Zofran) 4 mg IV Q8H PRN PRN Reason: Nausea And Vomiting Simple Syrup (Simple Syrup) 15 ml FEEDTUBE PRN PRN PRN Reason: Hypoglycemia Simple Syrup (Simple Syrup) 30 ml FEEDTUBE PRN PRN PRN Reason: Hypoglycemia Sodium Bicarbonate (Sodium Bicarbonate) 325 mg FEEDTUBE PRN PRN PRN Reason: For Clogged Feeding Tube Sodium Chloride (Sodium Chloride Flush Syringe 10 Ml) 10 ml IV BID [facility] Last Admin: 08/02/17 21:07 Dose: 10 ml Sodium Chloride (Sodium Chloride Flush Syringe 10 Ml) 10 ml IV PRN PRN PRN Reason: LINE FLUSH Objective Vital Signs - 12hr 08/03/17 08/03/17 08/03/17 03:40 03:50 04:00 Temperature Pulse Rate 86 99 H 78 Pulse Rate [ Anterior Throughout] Respiratory 26 H 20 26 H Rate Respiratory Rate [Anterior Throughout] Blood Pressure 87/49 90/58 104/59 O2 Sat by Pulse 100 99 100 Oximetry O2 Sat by Pulse Oximetry [ Changed] 08/03/17 08/03/17 08/03/17 04:10 04:20 04:30 Temperature Pulse Rate 83 81 78 Pulse Rate [ Anterior Throughout] Respiratory 25 H 27 H 26 H Rate Respiratory Rate [Anterior Throughout] Blood Pressure 97/64 85/56 89/53 O2 Sat by Pulse 97 97 Oximetry O2 Sat by Pulse Oximetry [ Changed] 08/03/17 08/03/17 08/03/17 04:40 04:50 05:00 Temperature Pulse Rate 79 72 80 Pulse Rate [ Anterior Throughout] Respiratory 28 H 23 25 H Rate Respiratory Rate [Anterior Throughout] Blood Pressure 89/53 99/60 104/59 O2 Sat by Pulse 97 99 Oximetry O2 Sat by Pulse Oximetry [ Changed] 08/03/17 08/03/17 08/03/17 05:10 05:20 05:30 Temperature Pulse Rate 77 78 76 Pulse Rate [ Anterior Throughout] Respiratory 26 H 25 H 24 Rate Respiratory Rate [Anterior Throughout] Blood Pressure 104/59 91/53 94/54 O2 Sat by Pulse Oximetry O2 Sat by Pulse Oximetry [ Changed] 08/03/17 08/03/17 08/03/17 05:40 05:50 06:00 Temperature Pulse Rate 66 73 76 Pulse Rate [ Anterior Throughout] Respiratory 25 H 24 25 H Rate Respiratory Rate [Anterior Throughout] Blood Pressure 94/54 131/58 94/54 O2 Sat by Pulse 100 100 99 Oximetry O2 Sat by Pulse Oximetry [ Changed] 08/03/17 08/03/17 08/03/17 06:10 06:20 06:30 Temperature Pulse Rate 75 76 77 Pulse Rate [ Anterior Throughout] Respiratory 22 22 15 Rate Respiratory Rate [Anterior Throughout] Blood Pressure 94/54 89/45 82/51 O2 Sat by Pulse 100 99 100 Oximetry O2 Sat by Pulse Oximetry [ Changed] 08/03/17 08/03/17 08/03/17 06:40 07:28 07:34 Temperature Pulse Rate 71 66 Pulse Rate [ Anterior Throughout] Respiratory 22 28 H Rate Respiratory Rate [Anterior Throughout] Blood Pressure 82/51 110/54 O2 Sat by Pulse 100 99 Oximetry O2 Sat by Pulse 99 Oximetry [ Changed] 08/03/17 08/03/17 08/03/17 08:00 10:30 12:00 Temperature 98.4 F 98.2 F Pulse Rate 69 Pulse Rate [ Anterior Throughout] Respiratory 26 H Rate Respiratory Rate [Anterior Throughout] Blood Pressure O2 Sat by Pulse 96 Oximetry O2 Sat by Pulse Oximetry [ Changed] 08/03/17 08/03/17 13:20 13:26 Temperature Pulse Rate Pulse Rate [ 85 88 Anterior Throughout] Respiratory Rate Respiratory 12 12 Rate [Anterior Throughout] Blood Pressure O2 Sat by Pulse Oximetry O2 Sat by Pulse Oximetry [ Changed] Constitutional: other (on ventilator support, critically ill) Eyes: non-icteric ENT: oropharynx dry Neck: supple, other (tracheostomy present) Effort: normal Ascultation: Bilateral: rhonchi, other (coarse BS) Cardiovascular: regular rate and rhythm (no mrg) Gastrointestinal: normoactive bowel sounds, soft, non-tender, non-distended Integumentary: normal Extremities: no cyanosis, other (contraction deformities present. Edema present.) Neurologic: other (moving more when stimulated, nothing purposeful) Psychiatric: other (unable to assess) CBC and BMP: 08/03/17 03:30 08/03/17 03:30 ABG, PT/INR, D-dimer: ABG POC ABG pH 7.479 (7.35-7.45) H 08/03/17 05:14 ABG pH 7.327 pH Units (7.350-7.450) L 07/29/17 01:41 POC ABG pCO2 34.5 (35-45) L 08/03/17 05:14 ABG pCO2 TNR 07/29/17 01:41 POC ABG pO2 141 (80-105) H 08/03/17 05:14 ABG pO2 TNR 07/29/17 01:41 POC ABG HCO3 25.6 08/03/17 05:14 POC ABG Total CO2 27 08/03/17 05:14 POC ABG O2 Sat 99 08/03/17 05:14 ABG O2 Saturation TNR 07/29/17 01:41 PT/INR, D-dimer PT 18.6 Sec. (12.2-14.9) H 08/02/17 10:00 INR 1.46 (0.87-1.13) H 08/02/17 10:00 D-Dimer 1885.58 ng/mlDDU (0-234) H 07/30/17 16:55 Abnormal lab findings: Abnormal Labs 07/29/17 07/29/17 07/29/17 01:41 01:41 01:41 WBC 21.0 H RBC Hgb 9.7 L Hct MCV MCH 24 L RDW 19.0 H Lymph % (Auto) [place] % (Auto) Seg Neutrophils % Seg Neuts % (Manual) 77.0 H Lymphocytes % (Manual) 4.5 L Nucleated RBC % 1.0 H Seg Neutrophils # Seg Neutrophils # Man 16.2 H Lymphocytes # (Manual) 0.9 L Monocytes # (Manual) PT 54.1 H INR 5.49 H* APTT 55.7 H Fibrinogen D-Dimer POC ABG pH ABG pH POC ABG pCO2 POC ABG pO2 Sodium Potassium Chloride Carbon Dioxide BUN Creatinine Glucose POC Glucose Lactic Acid 9.30 H* Calcium Iron TIBC Total Creatine Kinase Troponin T Albumin LDL Cholesterol Direct HDL Cholesterol Vitamin B12 Urine WBC (Auto) Vancomycin Trough Crossmatch 07/29/17 07/29/17 07/29/17 01:41 01:41 02:45 WBC RBC Hgb Hct MCV MCH RDW Lymph % (Auto) [place] % (Auto) Seg Neutrophils % Seg Neuts % (Manual) Lymphocytes % (Manual) Nucleated RBC % Seg Neutrophils # Seg Neutrophils # Man Lymphocytes # (Manual) Monocytes # (Manual) PT INR APTT Fibrinogen D-Dimer POC ABG pH ABG pH 7.327 L POC ABG pCO2 32.9 L POC ABG pO2 74 L Sodium 154 H Potassium Chloride 109.8 H Carbon Dioxide BUN 43 H Creatinine 1.3 H Glucose 682 H* POC Glucose Lactic Acid Calcium Iron TIBC Total Creatine Kinase Troponin T 0.209 H* Albumin 2.0 L LDL Cholesterol Direct 14 L HDL Cholesterol 13 L Vitamin B12 Urine WBC (Auto) Vancomycin Trough Crossmatch 07/29/17 07/29/17 07/29/17 03:19 04:11 04:11 WBC RBC Hgb Hct MCV MCH RDW Lymph % (Auto) [place] % (Auto) Seg Neutrophils % Seg Neuts % (Manual) Lymphocytes % (Manual) Nucleated RBC % Seg Neutrophils # Seg Neutrophils # Man Lymphocytes # (Manual) Monocytes # (Manual) PT INR APTT Fibrinogen D-Dimer POC ABG pH ABG pH POC ABG pCO2 POC ABG pO2 Sodium Potassium Chloride Carbon Dioxide BUN Creatinine Glucose POC Glucose Lactic Acid 8.30 H* 7.50 H* Calcium Iron TIBC Total Creatine Kinase Troponin T 0.169 H* Albumin LDL Cholesterol Direct HDL Cholesterol Vitamin B12 Urine WBC (Auto) Vancomycin Trough Crossmatch 07/29/17 07/29/17 07/29/17 07:50 07:50 09:46 WBC RBC Hgb Hct MCV MCH RDW Lymph % (Auto) [place] % (Auto) Seg Neutrophils % Seg Neuts % (Manual) Lymphocytes % (Manual) Nucleated RBC % Seg Neutrophils # Seg Neutrophils # Man Lymphocytes # (Manual) Monocytes # (Manual) PT INR APTT Fibrinogen D-Dimer POC ABG pH ABG pH POC ABG pCO2 POC ABG pO2 Sodium Potassium Chloride Carbon Dioxide BUN Creatinine Glucose POC Glucose 380 H Lactic Acid 3.30 H* Calcium Iron TIBC Total Creatine Kinase 172 H Troponin T 0.111 H* D Albumin LDL Cholesterol Direct HDL Cholesterol Vitamin B12 Urine WBC (Auto) Vancomycin Trough Crossmatch 07/29/17 07/29/17 07/29/17 10:05 10:05 12:45 WBC RBC Hgb Hct MCV MCH RDW Lymph % (Auto) [place] % (Auto) Seg Neutrophils % Seg Neuts % (Manual) Lymphocytes % (Manual) Nucleated RBC % Seg Neutrophils # Seg Neutrophils # Man Lymphocytes # (Manual) Monocytes # (Manual) PT INR APTT Fibrinogen D-Dimer POC ABG pH ABG pH POC ABG pCO2 POC ABG pO2 Sodium Potassium Chloride Carbon Dioxide BUN Creatinine Glucose POC Glucose 404 H Lactic Acid 2.30 H* Calcium Iron TIBC Total Creatine Kinase 179 H Troponin T 0.093 H Albumin LDL Cholesterol Direct HDL Cholesterol Vitamin B12 Urine WBC (Auto) Vancomycin Trough Crossmatch 07/29/17 07/29/17 07/29/17 17:32 19:23 Unknown WBC RBC Hgb Hct MCV MCH RDW Lymph % (Auto) [place] % (Auto) Seg Neutrophils % Seg Neuts % (Manual) Lymphocytes % (Manual) Nucleated RBC % Seg Neutrophils # Seg Neutrophils # Man Lymphocytes # (Manual) Monocytes # (Manual) PT INR APTT Fibrinogen D-Dimer POC ABG pH ABG pH POC ABG pCO2 POC ABG pO2 Sodium 156 H Potassium 2.6 L* D Chloride 119.9 H Carbon Dioxide BUN 25 H Creatinine Glucose 275 H POC Glucose 343 H Lactic Acid Calcium 7.7 L Iron TIBC Total Creatine Kinase Troponin T Albumin LDL Cholesterol Direct HDL Cholesterol Vitamin B12 Urine WBC (Auto) 169.0 H Vancomycin Trough Crossmatch 07/30/17 07/30/17 07/30/17 00:02 05:33 05:40 WBC 23.9 H RBC 3.51 L Hgb 8.3 L Hct 26.8 L MCV 77 L MCH 24 L RDW 18.3 H Lymph % (Auto) [place] % (Auto) Seg Neutrophils % Seg Neuts % (Manual) 84.0 H Lymphocytes % (Manual) 7.0 L Nucleated RBC % Seg Neutrophils # Seg Neutrophils # Man 20.1 H Lymphocytes # (Manual) Monocytes # (Manual) PT INR APTT Fibrinogen D-Dimer POC ABG pH ABG pH POC ABG pCO2 POC ABG pO2 Sodium Potassium Chloride Carbon Dioxide BUN Creatinine Glucose POC Glucose 186 H 246 H Lactic Acid Calcium Iron TIBC Total Creatine Kinase Troponin T Albumin LDL Cholesterol Direct HDL Cholesterol Vitamin B12 Urine WBC (Auto) Vancomycin Trough Crossmatch 07/30/17 07/30/17 07/30/17 05:40 06:13 11:53 WBC RBC Hgb Hct MCV MCH RDW Lymph % (Auto) [place] % (Auto) Seg Neutrophils % Seg Neuts % (Manual) Lymphocytes % (Manual) Nucleated RBC % Seg Neutrophils # Seg Neutrophils # Man Lymphocytes # (Manual) Monocytes # (Manual) PT INR APTT Fibrinogen D-Dimer POC ABG pH 7.461 H ABG pH POC ABG pCO2 33.9 L POC ABG pO2 226 H Sodium 156 H Potassium 3.2 L D Chloride 117.5 H Carbon Dioxide BUN 19 H Creatinine 0.6 L Glucose 212 H POC Glucose 166 H Lactic Acid Calcium 7.8 L Iron TIBC Total Creatine Kinase Troponin T Albumin LDL Cholesterol Direct HDL Cholesterol Vitamin B12 Urine WBC (Auto) Vancomycin Trough Crossmatch 07/30/17 07/30/17 07/30/17 15:54 16:52 16:55 WBC 22.9 H RBC 3.29 L Hgb 7.8 L Hct 25.1 L MCV 76 L MCH 24 L RDW 18.2 H Lymph % (Auto) [place] % (Auto) Seg Neutrophils % Seg Neuts % (Manual) 89.0 H Lymphocytes % (Manual) 7.0 L Nucleated RBC % Seg Neutrophils # Seg Neutrophils # Man 20.4 H Lymphocytes # (Manual) Monocytes # (Manual) 0.9 H PT INR APTT Fibrinogen D-Dimer POC ABG pH ABG pH POC ABG pCO2 POC ABG pO2 Sodium 154 H Potassium 3.5 L Chloride 122.1 H Carbon Dioxide BUN Creatinine 0.5 L Glucose 180 H POC Glucose Lactic Acid Calcium 7.6 L Iron TIBC Total Creatine Kinase Troponin T Albumin LDL Cholesterol Direct HDL Cholesterol Vitamin B12 Urine WBC (Auto) Vancomycin Trough 29.7 H Crossmatch 07/30/17 07/30/17 07/30/17 16:55 17:06 21:00 WBC RBC Hgb Hct MCV MCH RDW Lymph % (Auto) [place] % (Auto) Seg Neutrophils % Seg Neuts % (Manual) Lymphocytes % (Manual) Nucleated RBC % Seg Neutrophils # Seg Neutrophils # Man Lymphocytes # (Manual) Monocytes # (Manual) PT 44.7 H INR 4.33 H APTT 62.8 H* Fibrinogen 651 H D-Dimer 1885.58 H POC ABG pH ABG pH POC ABG pCO2 POC ABG pO2 Sodium 150 H Potassium 3.2 L Chloride 114.3 H Carbon Dioxide BUN Creatinine 0.5 L Glucose 167 H POC Glucose 213 H Lactic Acid Calcium 7.7 L Iron TIBC Total Creatine Kinase Troponin T Albumin LDL Cholesterol Direct HDL Cholesterol Vitamin B12 Urine WBC (Auto) Vancomycin Trough Crossmatch 07/30/17 07/31/17 07/31/17 Unknown 00:29 04:00 WBC RBC Hgb Hct MCV MCH RDW Lymph % (Auto) [place] % (Auto) Seg Neutrophils % Seg Neuts % (Manual) Lymphocytes % (Manual) Nucleated RBC % Seg Neutrophils # Seg Neutrophils # Man Lymphocytes # (Manual) Monocytes # (Manual) PT 57.1 H 33.9 H INR 5.87 H* 3.08 H APTT 53.6 H Fibrinogen D-Dimer POC ABG pH ABG pH POC ABG pCO2 POC ABG pO2 Sodium Potassium Chloride Carbon Dioxide BUN Creatinine Glucose POC Glucose 198 H Lactic Acid Calcium Iron TIBC Total Creatine Kinase Troponin T Albumin LDL Cholesterol Direct HDL Cholesterol Vitamin B12 Urine WBC (Auto) Vancomycin Trough Crossmatch 07/31/17 07/31/17 07/31/17 04:00 04:00 05:51 WBC 17.2 H RBC 3.14 L Hgb 7.5 L Hct 23.9 L MCV 76 L MCH 24 L RDW 18.3 H Lymph % (Auto) 9.1 L [place] % (Auto) Seg Neutrophils % 88.1 H Seg Neuts % (Manual) Lymphocytes % (Manual) Nucleated RBC % Seg Neutrophils # 15.2 H Seg Neutrophils # Man Lymphocytes # (Manual) Monocytes # (Manual) PT INR APTT Fibrinogen D-Dimer POC ABG pH 7.538 H ABG pH POC ABG pCO2 25.6 L POC ABG pO2 118 H Sodium 147 H Potassium Chloride 113.9 H Carbon Dioxide BUN Creatinine 0.4 L Glucose 175 H POC Glucose Lactic Acid Calcium 7.6 L Iron TIBC Total Creatine Kinase Troponin T Albumin LDL Cholesterol Direct HDL Cholesterol Vitamin B12 Urine WBC (Auto) Vancomycin Trough Crossmatch 07/31/17 07/31/17 07/31/17 05:51 10:45 11:25 WBC RBC Hgb Hct MCV MCH RDW Lymph % (Auto) [place] % (Auto) Seg Neutrophils % Seg Neuts % (Manual) Lymphocytes % (Manual) Nucleated RBC % Seg Neutrophils # Seg Neutrophils # Man Lymphocytes # (Manual) Monocytes # (Manual) PT INR APTT Fibrinogen D-Dimer POC ABG pH ABG pH POC ABG pCO2 POC ABG pO2 Sodium Potassium 3.3 L Chloride 108.4 H Carbon Dioxide BUN Creatinine 0.4 L Glucose 139 H POC Glucose 176 H 147 H Lactic Acid Calcium 7.6 L Iron TIBC Total Creatine Kinase Troponin T Albumin LDL Cholesterol Direct HDL Cholesterol Vitamin B12 Urine WBC (Auto) Vancomycin Trough Crossmatch 07/31/17 08/01/17 08/01/17 17:46 00:01 05:07 WBC RBC Hgb Hct MCV MCH RDW Lymph % (Auto) [place] % (Auto) Seg Neutrophils % Seg Neuts % (Manual) Lymphocytes % (Manual) Nucleated RBC % Seg Neutrophils # Seg Neutrophils # Man Lymphocytes # (Manual) Monocytes # (Manual) PT INR APTT Fibrinogen D-Dimer POC ABG pH ABG pH POC ABG pCO2 POC ABG pO2 Sodium Potassium Chloride Carbon Dioxide BUN Creatinine Glucose POC Glucose 222 H 240 H 195 H Lactic Acid Calcium Iron TIBC Total Creatine Kinase Troponin T Albumin LDL Cholesterol Direct HDL Cholesterol Vitamin B12 Urine WBC (Auto) Vancomycin Trough Crossmatch 08/01/17 08/01/17 08/01/17 05:46 06:38 06:38 WBC 11.7 H RBC 3.00 L Hgb 7.1 L Hct 22.6 L MCV 75 L MCH 24 L RDW 18.4 H Lymph % (Auto) 12.8 L [place] % (Auto) Seg Neutrophils % 82.5 H Seg Neuts % (Manual) Lymphocytes % (Manual) Nucleated RBC % Seg Neutrophils # 9.7 H Seg Neutrophils # Man Lymphocytes # (Manual) Monocytes # (Manual) PT INR APTT Fibrinogen D-Dimer POC ABG pH 7.491 H ABG pH POC ABG pCO2 26.6 L POC ABG pO2 Sodium Potassium Chloride Carbon Dioxide BUN Creatinine 0.4 L Glucose 191 H POC Glucose Lactic Acid Calcium 7.7 L Iron TIBC Total Creatine Kinase Troponin T Albumin LDL Cholesterol Direct HDL Cholesterol Vitamin B12 Urine WBC (Auto) Vancomycin Trough Crossmatch 08/01/17 08/01/17 08/01/17 11:47 17:40 17:40 WBC RBC Hgb Hct MCV MCH RDW Lymph % (Auto) [place] % (Auto) Seg Neutrophils % Seg Neuts % (Manual) Lymphocytes % (Manual) Nucleated RBC % Seg Neutrophils # Seg Neutrophils # Man Lymphocytes # (Manual) Monocytes # (Manual) PT 20.4 H INR 1.64 H APTT Fibrinogen D-Dimer POC ABG pH ABG pH POC ABG pCO2 POC ABG pO2 Sodium Potassium Chloride Carbon Dioxide BUN Creatinine Glucose POC Glucose 289 H Lactic Acid Calcium Iron 17 L TIBC 103 L Total Creatine Kinase Troponin T Albumin LDL Cholesterol Direct HDL Cholesterol Vitamin B12 Urine WBC (Auto) Vancomycin Trough Crossmatch 08/01/17 08/01/17 08/01/17 17:40 17:43 23:48 WBC RBC Hgb Hct MCV MCH RDW Lymph % (Auto) [place] % (Auto) Seg Neutrophils % Seg Neuts % (Manual) Lymphocytes % (Manual) Nucleated RBC % Seg Neutrophils # Seg Neutrophils # Man Lymphocytes # (Manual) Monocytes # (Manual) PT INR APTT Fibrinogen D-Dimer POC ABG pH ABG pH POC ABG pCO2 POC ABG pO2 Sodium Potassium Chloride Carbon Dioxide BUN Creatinine Glucose POC Glucose 254 H 248 H Lactic Acid Calcium Iron TIBC Total Creatine Kinase Troponin T Albumin LDL Cholesterol Direct HDL Cholesterol Vitamin B12 1830 H Urine WBC (Auto) Vancomycin Trough Crossmatch 08/02/17 08/02/17 08/02/17 03:56 04:00 04:00 WBC 12.7 H RBC 3.04 L Hgb 7.2 L Hct 22.8 L MCV 75 L MCH 24 L RDW 18.0 H Lymph % (Auto) 13.1 L [place] % (Auto) Seg Neutrophils % 81.5 H Seg Neuts % (Manual) Lymphocytes % (Manual) Nucleated RBC % Seg Neutrophils # 10.3 H Seg Neutrophils # Man Lymphocytes # (Manual) Monocytes # (Manual) PT INR APTT Fibrinogen D-Dimer POC ABG pH 7.537 H ABG pH POC ABG pCO2 28.4 L POC ABG pO2 109 H Sodium Potassium 3.0 L Chloride 109.0 H Carbon Dioxide 20 L BUN 6 L Creatinine 0.3 L Glucose 196 H POC Glucose Lactic Acid Calcium 6.3 L D Iron TIBC Total Creatine Kinase Troponin T Albumin LDL Cholesterol Direct HDL Cholesterol Vitamin B12 Urine WBC (Auto) Vancomycin Trough Crossmatch 08/02/17 08/02/17 08/02/17 05:20 10:00 12:16 WBC RBC Hgb Hct MCV MCH RDW Lymph % (Auto) [place] % (Auto) Seg Neutrophils % Seg Neuts % (Manual) Lymphocytes % (Manual) Nucleated RBC % Seg Neutrophils # Seg Neutrophils # Man Lymphocytes # (Manual) Monocytes # (Manual) PT 18.6 H INR 1.46 H APTT Fibrinogen D-Dimer POC ABG pH ABG pH POC ABG pCO2 POC ABG pO2 Sodium Potassium Chloride Carbon Dioxide BUN Creatinine Glucose POC Glucose 295 H 296 H Lactic Acid Calcium Iron TIBC Total Creatine Kinase Troponin T Albumin LDL Cholesterol Direct HDL Cholesterol Vitamin B12 Urine WBC (Auto) Vancomycin Trough Crossmatch 08/02/17 08/02/17 08/03/17 13:10 18:03 00:19 WBC RBC Hgb Hct MCV MCH RDW Lymph % (Auto) [place] % (Auto) Seg Neutrophils % Seg Neuts % (Manual) Lymphocytes % (Manual) Nucleated RBC % Seg Neutrophils # Seg Neutrophils # Man Lymphocytes # (Manual) Monocytes # (Manual) PT INR APTT Fibrinogen D-Dimer POC ABG pH 7.500 H ABG pH POC ABG pCO2 31.9 L POC ABG pO2 107 H Sodium Potassium Chloride Carbon Dioxide BUN Creatinine Glucose POC Glucose 273 H 244 H Lactic Acid Calcium Iron TIBC Total Creatine Kinase Troponin T Albumin LDL Cholesterol Direct HDL Cholesterol Vitamin B12 Urine WBC (Auto) Vancomycin Trough Crossmatch 08/03/17 08/03/17 08/03/17 03:30 03:30 05:14 WBC RBC 2.67 L Hgb 6.5 L Hct 20.2 L MCV 76 L MCH 24 L RDW 18.3 H Lymph % (Auto) [place] % (Auto) 7.4 H Seg Neutrophils % 75.9 H Seg Neuts % (Manual) Lymphocytes % (Manual) Nucleated RBC % Seg Neutrophils # Seg Neutrophils # Man Lymphocytes # (Manual) Monocytes # (Manual) PT INR APTT Fibrinogen D-Dimer POC ABG pH ABG pH POC ABG pCO2 POC ABG pO2 Sodium 135 L Potassium Chloride Carbon Dioxide BUN Creatinine 0.3 L Glucose 207 H POC Glucose 205 H Lactic Acid Calcium 7.5 L D Iron TIBC Total Creatine Kinase Troponin T Albumin LDL Cholesterol Direct HDL Cholesterol Vitamin B12 Urine WBC (Auto) Vancomycin Trough Crossmatch 08/03/17 08/03/17 08/03/17 05:14 08:03 12:11 WBC RBC Hgb Hct MCV MCH RDW Lymph % (Auto) [place] % (Auto) Seg Neutrophils % Seg Neuts % (Manual) Lymphocytes % (Manual) Nucleated RBC % Seg Neutrophils # Seg Neutrophils # Man Lymphocytes # (Manual) Monocytes # (Manual) PT INR APTT Fibrinogen D-Dimer POC ABG pH 7.479 H ABG pH POC ABG pCO2 34.5 L POC ABG pO2 141 H Sodium Potassium Chloride Carbon Dioxide BUN Creatinine Glucose POC Glucose 270 H Lactic Acid Calcium Iron TIBC Total Creatine Kinase Troponin T Albumin LDL Cholesterol Direct HDL Cholesterol Vitamin B12 Urine WBC (Auto) Vancomycin Trough Crossmatch See Detail Chest x-ray: report reviewed, image reviewed (LLL infiltrate)
[2017-08-03] MEDS: LEVOPHED DRIP 4 MG/NS 250 ML 4 MG/250 ML BAG IV SCH (18:05)
--- NOTE | 2017-08-03 21:13 | Progress Note ---
Assessment and Plan - Patient Problems (1) Pneumonia Current Visit: Yes Status: Acute Plan to address problem: follow pulmonary. (2) Left foot infection Current Visit: Yes Status: Acute Plan to address problem: Follow vascular. (3) Feeding by G-tube Current Visit: Yes Status: Acute Plan to address problem: tube care/management. (4) Coagulopathy Current Visit: Yes Status: Acute Plan to address problem: Monitor coags, and adjust as needed. Subjective Date of service: 08/03/17 Principal diagnosis: A/C respiratory failure Interval history: Patient seen/examined, resting in bed, VSS, afebrile. She desarts to the 60% when on her left side, and 100% on her right side. She has the PNA on the left side.labs reviewed, INR 1.46 Patient seen/examined, resting in bed, alert, 2nd unit of PRBC about to begin. VSS, afebrile, her Daughter at the bed side, case d/w her. Objective - Constitutional Vitals: Vital Signs - 12hr 08/03/17 08/03/17 08/03/17 09:10 09:20 09:30 Temperature Pulse Rate 90 88 82 Pulse Rate [ Anterior Throughout] Respiratory 16 20 17 Rate Respiratory Rate [Anterior Throughout] Blood Pressure 146/78 85/52 84/56 O2 Sat by Pulse 97 97 98 Oximetry O2 Sat by Pulse Oximetry [ Changed] 08/03/17 08/03/17 08/03/17 09:40 09:50 10:00 Temperature Pulse Rate 79 77 74 Pulse Rate [ Anterior Throughout] Respiratory 26 H 26 H 26 H Rate Respiratory Rate [Anterior Throughout] Blood Pressure 84/56 83/56 87/48 O2 Sat by Pulse 97 100 99 Oximetry O2 Sat by Pulse Oximetry [ Changed] 08/03/17 08/03/17 08/03/17 10:10 10:20 10:30 Temperature Pulse Rate 81 82 79 Pulse Rate [ Anterior Throughout] Respiratory 20 19 20 Rate Respiratory Rate [Anterior Throughout] Blood Pressure 87/48 93/47 100/58 O2 Sat by Pulse 100 98 100 Oximetry O2 Sat by Pulse Oximetry [ Changed] 08/03/17 08/03/17 08/03/17 10:40 10:50 11:00 Temperature Pulse Rate 66 64 61 Pulse Rate [ Anterior Throughout] Respiratory 29 H 26 H 24 Rate Respiratory Rate [Anterior Throughout] Blood Pressure 100/58 105/51 105/51 O2 Sat by Pulse 100 100 100 Oximetry O2 Sat by Pulse Oximetry [ Changed] 08/03/17 08/03/17 08/03/17 11:10 11:20 11:30 Temperature Pulse Rate 64 64 62 Pulse Rate [ Anterior Throughout] Respiratory 24 26 H 25 H Rate Respiratory Rate [Anterior Throughout] Blood Pressure 104/45 99/44 99/44 O2 Sat by Pulse 100 100 100 Oximetry O2 Sat by Pulse Oximetry [ Changed] 08/03/17 08/03/17 08/03/17 11:40 11:50 12:00 Temperature 98.2 F Pulse Rate 82 95 H 84 Pulse Rate [ Anterior Throughout] Respiratory 30 H 28 H 30 H Rate Respiratory Rate [Anterior Throughout] Blood Pressure 99/44 99/44 138/70 O2 Sat by Pulse 100 99 100 Oximetry O2 Sat by Pulse Oximetry [ Changed] 08/03/17 08/03/17 08/03/17 12:10 12:20 12:30 Temperature Pulse Rate 83 88 82 Pulse Rate [ Anterior Throughout] Respiratory 30 H 29 H 31 H Rate Respiratory Rate [Anterior Throughout] Blood Pressure 205/102 205/102 205/102 O2 Sat by Pulse 100 99 100 Oximetry O2 Sat by Pulse Oximetry [ Changed] 08/03/17 08/03/17 08/03/17 12:40 12:50 13:00 Temperature Pulse Rate 84 101 H 100 H Pulse Rate [ Anterior Throughout] Respiratory 29 H 17 13 Rate Respiratory Rate [Anterior Throughout] Blood Pressure 205/102 188/127 188/127 O2 Sat by Pulse 100 100 98 Oximetry O2 Sat by Pulse Oximetry [ Changed] 08/03/17 08/03/17 08/03/17 13:10 13:20 13:26 Temperature Pulse Rate 101 H 83 Pulse Rate [ 85 88 Anterior Throughout] Respiratory 17 13 Rate Respiratory 12 12 Rate [Anterior Throughout] Blood Pressure 188/127 42/26 O2 Sat by Pulse 100 99 Oximetry O2 Sat by Pulse Oximetry [ Changed] 08/03/17 08/03/17 08/03/17 13:30 13:40 13:50 Temperature Pulse Rate 76 82 71 Pulse Rate [ Anterior Throughout] Respiratory 12 12 12 Rate Respiratory Rate [Anterior Throughout] Blood Pressure 105/54 105/54 108/55 O2 Sat by Pulse 99 99 100 Oximetry O2 Sat by Pulse Oximetry [ Changed] 08/03/17 08/03/17 08/03/17 14:00 14:10 14:20 Temperature Pulse Rate 67 73 74 Pulse Rate [ Anterior Throughout] Respiratory 12 12 12 Rate Respiratory Rate [Anterior Throughout] Blood Pressure 119/58 119/58 93/49 O2 Sat by Pulse 100 100 100 Oximetry O2 Sat by Pulse Oximetry [ Changed] 08/03/17 08/03/17 08/03/17 14:30 14:40 14:50 Temperature Pulse Rate 68 80 85 Pulse Rate [ Anterior Throughout] Respiratory 12 15 11 L Rate Respiratory Rate [Anterior Throughout] Blood Pressure 92/56 92/56 111/55 O2 Sat by Pulse 100 100 100 Oximetry O2 Sat by Pulse Oximetry [ Changed] 08/03/17 08/03/17 08/03/17 15:00 15:10 15:20 Temperature Pulse Rate 79 70 Pulse Rate [ Anterior Throughout] Respiratory 12 12 Rate Respiratory Rate [Anterior Throughout] Blood Pressure 83/42 83/42 60/48 O2 Sat by Pulse 100 100 100 Oximetry O2 Sat by Pulse Oximetry [ Changed] 08/03/17 08/03/17 08/03/17 15:30 15:35 15:40 Temperature Pulse Rate 74 69 Pulse Rate [ Anterior Throughout] Respiratory 12 12 Rate Respiratory Rate [Anterior Throughout] Blood Pressure 135/68 135/68 O2 Sat by Pulse 96 100 Oximetry O2 Sat by Pulse 97 Oximetry [ Changed] 08/03/17 08/03/17 08/03/17 15:50 16:00 16:10 Temperature 98.4 F Pulse Rate 67 74 68 Pulse Rate [ Anterior Throughout] Respiratory 12 13 10 L Rate Respiratory Rate [Anterior Throughout] Blood Pressure 112/44 112/44 112/44 O2 Sat by Pulse 100 100 100 Oximetry O2 Sat by Pulse Oximetry [ Changed] 08/03/17 08/03/17 08/03/17 16:20 16:30 16:40 Temperature Pulse Rate 62 63 67 Pulse Rate [ Anterior Throughout] Respiratory 12 12 12 Rate Respiratory Rate [Anterior Throughout] Blood Pressure 109/57 120/58 120/58 O2 Sat by Pulse 100 100 100 Oximetry O2 Sat by Pulse Oximetry [ Changed] 08/03/17 08/03/17 08/03/17 16:50 17:00 17:10 Temperature Pulse Rate 66 63 63 Pulse Rate [ Anterior Throughout] Respiratory 12 12 11 L Rate Respiratory Rate [Anterior Throughout] Blood Pressure 128/49 124/49 124/49 O2 Sat by Pulse 100 100 100 Oximetry O2 Sat by Pulse Oximetry [ Changed] 08/03/17 08/03/17 08/03/17 17:20 17:30 17:40 Temperature Pulse Rate 63 66 70 Pulse Rate [ Anterior Throughout] Respiratory 12 12 10 L Rate Respiratory Rate [Anterior Throughout] Blood Pressure 124/58 134/65 134/65 O2 Sat by Pulse 100 100 100 Oximetry O2 Sat by Pulse Oximetry [ Changed] 08/03/17 08/03/17 08/03/17 17:50 18:00 18:10 Temperature Pulse Rate 67 68 66 Pulse Rate [ Anterior Throughout] Respiratory 12 12 12 Rate Respiratory Rate [Anterior Throughout] Blood Pressure 138/66 130/64 130/64 O2 Sat by Pulse 100 100 100 Oximetry O2 Sat by Pulse Oximetry [ Changed] 08/03/17 08/03/17 08/03/17 18:20 18:30 18:40 Temperature Pulse Rate 83 79 71 Pulse Rate [ Anterior Throughout] Respiratory 15 11 L 12 Rate Respiratory Rate [Anterior Throughout] Blood Pressure 128/62 125/67 125/67 O2 Sat by Pulse 100 100 100 Oximetry O2 Sat by Pulse Oximetry [ Changed] 08/03/17 08/03/17 08/03/17 18:50 19:00 19:10 Temperature Pulse Rate 67 68 68 Pulse Rate [ Anterior Throughout] Respiratory 12 12 12 Rate Respiratory Rate [Anterior Throughout] Blood Pressure 118/67 123/58 123/58 O2 Sat by Pulse 100 100 100 Oximetry O2 Sat by Pulse Oximetry [ Changed] 08/03/17 08/03/17 08/03/17 19:20 19:25 19:29 Temperature Pulse Rate 69 66 Pulse Rate [ 66 Anterior Throughout] Respiratory 12 Rate Respiratory 12 Rate [Anterior Throughout] Blood Pressure 124/53 124/53 O2 Sat by Pulse 99 100 Oximetry O2 Sat by Pulse Oximetry [ Changed] 08/03/17 08/03/17 08/03/17 19:30 19:40 19:44 Temperature Pulse Rate 68 78 Pulse Rate [ 68 Anterior Throughout] Respiratory 21 22 Rate Respiratory 12 Rate [Anterior Throughout] Blood Pressure 119/56 119/56 O2 Sat by Pulse 100 100 Oximetry O2 Sat by Pulse Oximetry [ Changed] 08/03/17 08/03/17 08/03/17 19:50 19:53 20:50 Temperature 99.2 F 98.7 F Pulse Rate 51 L 87 Pulse Rate [ Anterior Throughout] Respiratory 23 12 Rate Respiratory Rate [Anterior Throughout] Blood Pressure 136/68 103/58 O2 Sat by Pulse 99 96 Oximetry O2 Sat by Pulse Oximetry [ Changed] General appearance: Present: no acute distress - EENT Eyes: PERRL, EOM intact ENT: hearing intact, clear oral mucosa Ears: bilateral: normal - Neck Neck: supple, normal ROM - Respiratory Respiratory: bilateral: other (on the vent) - Breasts Breasts: deferred - Cardiovascular Rhythm: regular Heart Sounds: Present: S1 & S2. Absent: gallop, rub Extremities: pulses intact, No edema, normal color, Full ROM - Gastrointestinal General gastrointestinal: Present: soft, non-tender, non-distended, normal bowel sounds Rectal Exam: deferred - Genitourinary Female genitourinary: deferred - Integumentary Integumentary: clear, warm, dry - Musculoskeletal Musculoskeletal: 1, strength equal bilaterally - Psychiatric Psychiatric: appropriate mood/affect - Labs CBC & Chem 7: 08/03/17 03:30 08/03/17 03:30 Labs: Abnormal lab results 08/03/17 08/03/17 08/03/17 Range/Units 00:19 03:30 03:30 RBC 2.67 L (3.65-5.03) M/mm3 Hgb 6.5 L (10.1-14.3) gm/dl Hct 20.2 L (30.3-42.9) % MCV 76 L (79-97) fl MCH 24 L (28-32) pg RDW 18.3 H (13.2-15.2) % Glynn % (Auto) 7.4 H (0.0-7.3) % Seg Neutrophils % 75.9 H (40.0-70.0) % POC ABG pH (7.35-7.45) POC ABG pCO2 (35-45) POC ABG pO2 (80-105) Sodium 135 L (137-145) mmol/L Creatinine 0.3 L (0.7-1.2) mg/dL Glucose 207 H (65-100) mg/dL POC Glucose 244 H (70-105) Calcium 7.5 L D (8.4-10.2) mg/dL Crossmatch 08/03/17 08/03/17 08/03/17 Range/Units 05:14 05:14 08:03 RBC (3.65-5.03) M/mm3 Hgb (10.1-14.3) gm/dl Hct (30.3-42.9) % MCV (79-97) fl MCH (28-32) pg RDW (13.2-15.2) % Glynn % (Auto) (0.0-7.3) % Seg Neutrophils % (40.0-70.0) % POC ABG pH 7.479 H (7.35-7.45) POC ABG pCO2 34.5 L (35-45) POC ABG pO2 141 H (80-105) Sodium (137-145) mmol/L Creatinine (0.7-1.2) mg/dL Glucose (65-100) mg/dL POC Glucose 205 H (70-105) Calcium (8.4-10.2) mg/dL Crossmatch See Detail 08/03/17 08/03/17 Range/Units 12:11 17:27 RBC (3.65-5.03) M/mm3 Hgb (10.1-14.3) gm/dl Hct (30.3-42.9) % MCV (79-97) fl MCH (28-32) pg RDW (13.2-15.2) % Glynn % (Auto) (0.0-7.3) % Seg Neutrophils % (40.0-70.0) % POC ABG pH (7.35-7.45) POC ABG pCO2 (35-45) POC ABG pO2 (80-105) Sodium (137-145) mmol/L Creatinine (0.7-1.2) mg/dL Glucose (65-100) mg/dL POC Glucose 270 H 219 H (70-105) Calcium (8.4-10.2) mg/dL Crossmatch
[2017-08-03] MEDS: LANTUS SUB-Q SCH (21:42)
[2017-08-04] MEDS: ZOSYN/NS 3.375GM/50ML 3.375 GM/50 ML BAG IV SCH ×4 (01:10→18:16)
[2017-08-04] MEDS: HumaLOG SUB-Q SCH ×4 (01:15→18:34)
[2017-08-04 04:26] LABS: Basophils # (Auto) 0.1 K/mm3 (0.0-0.1); Basophils % (Auto) 0.6 % (0.0-1.8); Eosinophils # (Auto) 0.2 K/mm3 (0.0-0.4); Eosinophils % (Auto) 1.7 % (0.0-4.3); Hematocrit 31.2 % (30.3-42.9); Hemoglobin 10.5 gm/dl (10.1-14.3); Lymphocytes # (Auto) 1.2 K/mm3 (1.2-5.4); Lymphocytes % (Auto) 12.8 % (13.4-35.0); Mean Corpuscular HGB Conc 34 % (30-34); Mean Corpuscular Volume 76 fl (79-97); Monocytes # (Auto) 0.5 K/mm3 (0.0-0.8); Monocytes % (Auto) 5.8 % (0.0-7.3); Red Blood Count 4.11 M/mm3 (3.65-5.03); Red Cell Distribution Width 19.4 % (13.2-15.2)
[2017-08-04 04:34] LABS: Mean Corpuscular Hemoglobin 26 pg (28-32); Platelet Count 165 K/mm3 (140-440)
[2017-08-04 05:02] LABS: Alanine Aminotransferase 22 units/L (7-56); Albumin 2.2 g/dL (3.9-5); BUN/Creatinine Ratio 23; Blood Urea Nitrogen 7 mg/dL (7-17); Calcium 7.6 mg/dL (8.4-10.2); Hemolysis Index 81
[2017-08-04] MEDS: DUONEB *Not for PRN Use IH SCH ×4 (07:24→20:33)
[2017-08-04] MEDS: PEPCID PO SCH ×2 (10:02→22:12)
[2017-08-04] MEDS: ROBINUL PO SCH ×2 (10:02→22:13)
[2017-08-04 13:44] LABS: INR 1.13 (0.87-1.13)
--- NOTE | 2017-08-04 14:21 | Progress Note ---
Assessment and Plan Imp: 1. LLL HCAP, POA 2. Probable UTI, POA 3. Severe sepsis w/ shock 4. DYLLAN, better 5. Hypernatremia, better 6. Anoxic encephalopathy 7. Hx of Dilated CMP Rec: 1. Remain off Levophed to keep MAP > 65; if off pressors x 24 hours will consider d/c of CVL; place peripheral IVs today 2. 2 units of PRBCs given 08/03/17 3. T-piece trials today; leave on indefinitely if tolerates 4. Complete ~ 7 day course of Zosyn vs. Pseudomonas from sputum and probable UTI 5. TFs, supportive, SCDs; stop IVFs 6. There is a DNR form on her chart sent from the [facility]; per discussions with nurse last PM, daughter confirmed DNR status verbally; recommend clarifying this with family No family present; CCT 31 minutes Subjective Date of service: 08/04/17 Principal diagnosis: A/C respiratory failure Interval history: No events. Tolerating PSV 8/5 all AM without apnea. Non-verbal. Off Levophed since ~ 400am. Active Medications Acetaminophen (Tylenol) [address] Q4H PRN PRN Reason: Pain MILD(1-3)/Fever >100.5/JOLLY Last Admin: 08/01/17 20:11 Dose: 650 mg Albuterol/Ipratropium (Duoneb *Not For Prn Use*) 1 ampul IH TIDRT [facility] Last Admin: 08/04/17 07:24 Dose: 1 ampul Lipase/Protease/Amylase (Pancreaze Dr 10,500 Unit) 1 each FEEDTUBE PRN PRN PRN Reason: For Clogged Feeding Tube Dextrose (D50w (25gm) Syringe) 50 ml IV PRN PRN PRN Reason: Hypoglycemia Famotidine (Pepcid) 20 mg PO BID [facility] Last Admin: 08/04/17 10:02 Dose: 20 mg Glycopyrrolate (Robinul) 1 mg PO BID [facility] Last Admin: 08/04/17 10:02 Dose: 1 mg Norepinephrine (Levophed Drip 4 Mg/Ns 250 Ml) 4 mg in 250 mls @ 7.5 mls/hr IV TITR [facility]; Protocol Last Titration: 08/04/17 12:53 Dose: 4 mcg/min, 15 mls/hr Piperacillin Sod/Tazobactam Sod (Zosyn/Ns 3.375gm/50ml) 3.375 gm in 50 mls @ 100 mls/hr IV Q6HR [facility]; Protocol Stop: 08/04/17 23:59 Last Admin: 08/04/17 12:58 Dose: 100 mls/hr Insulin Glargine (Lantus) 10 units SUB-Q QHS [facility] Last Admin: 08/03/17 21:42 Dose: 10 units Insulin Human Lispro (Humalog) 0 unit SUB-Q Q6HR [facility]; Protocol Last Admin: 08/04/17 05:44 Dose: Not Given Ondansetron HCl (Zofran) 4 mg IV Q8H PRN PRN Reason: Nausea And Vomiting Simple Syrup (Simple Syrup) 15 ml FEEDTUBE PRN PRN PRN Reason: Hypoglycemia Simple Syrup (Simple Syrup) 30 ml FEEDTUBE PRN PRN PRN Reason: Hypoglycemia Sodium Bicarbonate (Sodium Bicarbonate) 325 mg FEEDTUBE PRN PRN PRN Reason: For Clogged Feeding Tube Sodium Chloride (Sodium Chloride Flush Syringe 10 Ml) 10 ml IV BID [facility] Last Admin: 08/03/17 21:58 Dose: 10 ml Sodium Chloride (Sodium Chloride Flush Syringe 10 Ml) 10 ml IV PRN PRN PRN Reason: LINE FLUSH Objective Vital Signs - 12hr 08/04/17 08/04/17 08/04/17 02:21 02:31 02:41 Temperature Pulse Rate 86 84 76 Pulse Rate [ Anterior Throughout] Respiratory 13 12 12 Rate Respiratory Rate [Anterior Throughout] Blood Pressure 105/48 122/64 105/48 O2 Sat by Pulse 100 100 100 Oximetry 08/04/17 08/04/17 08/04/17 02:50 03:01 03:11 Temperature Pulse Rate 73 97 H 74 Pulse Rate [ Anterior Throughout] Respiratory 12 14 12 Rate Respiratory Rate [Anterior Throughout] Blood Pressure 120/69 120/69 120/69 O2 Sat by Pulse 100 100 99 Oximetry 08/04/17 08/04/17 08/04/17 03:21 03:30 03:41 Temperature Pulse Rate 71 69 74 Pulse Rate [ Anterior Throughout] Respiratory 12 13 12 Rate Respiratory Rate [Anterior Throughout] Blood Pressure 128/66 138/67 138/67 O2 Sat by Pulse 100 100 99 Oximetry 08/04/17 08/04/17 08/04/17 03:46 03:51 04:00 Temperature 99.6 F Pulse Rate 70 75 71 Pulse Rate [ Anterior Throughout] Respiratory 11 L 12 Rate Respiratory Rate [Anterior Throughout] Blood Pressure 138/67 126/62 121/66 O2 Sat by Pulse 99 98 98 Oximetry 08/04/17 08/04/17 08/04/17 04:11 04:21 04:31 Temperature Pulse Rate 71 69 68 Pulse Rate [ Anterior Throughout] Respiratory 12 12 12 Rate Respiratory Rate [Anterior Throughout] Blood Pressure 121/66 131/66 129/64 O2 Sat by Pulse 98 100 99 Oximetry 08/04/17 08/04/17 08/04/17 04:41 04:51 05:01 Temperature Pulse Rate 73 74 72 Pulse Rate [ Anterior Throughout] Respiratory 13 11 L 13 Rate Respiratory Rate [Anterior Throughout] Blood Pressure 129/64 136/69 135/65 O2 Sat by Pulse 100 99 98 Oximetry 08/04/17 08/04/17 08/04/17 05:11 05:21 05:30 Temperature Pulse Rate 69 68 68 Pulse Rate [ Anterior Throughout] Respiratory 12 12 12 Rate Respiratory Rate [Anterior Throughout] Blood Pressure 135/65 137/73 131/67 O2 Sat by Pulse 99 100 100 Oximetry 08/04/17 08/04/17 08/04/17 05:41 05:51 06:01 Temperature Pulse Rate 71 72 72 Pulse Rate [ Anterior Throughout] Respiratory 12 12 12 Rate Respiratory Rate [Anterior Throughout] Blood Pressure 131/67 134/66 129/65 O2 Sat by Pulse 100 100 99 Oximetry 08/04/17 08/04/17 08/04/17 06:11 06:21 06:30 Temperature Pulse Rate 71 70 70 Pulse Rate [ Anterior Throughout] Respiratory 12 12 12 Rate Respiratory Rate [Anterior Throughout] Blood Pressure 129/65 126/64 129/66 O2 Sat by Pulse 99 99 98 Oximetry 08/04/17 08/04/17 08/04/17 06:41 06:51 07:00 Temperature Pulse Rate 70 70 71 Pulse Rate [ Anterior Throughout] Respiratory 12 12 12 Rate Respiratory Rate [Anterior Throughout] Blood Pressure 129/66 130/65 132/64 O2 Sat by Pulse 98 99 98 Oximetry 08/04/17 08/04/17 08/04/17 07:11 07:17 07:21 Temperature Pulse Rate 76 74 72 Pulse Rate [ Anterior Throughout] Respiratory 12 12 Rate Respiratory Rate [Anterior Throughout] Blood Pressure 132/64 132/64 127/66 O2 Sat by Pulse 98 98 97 Oximetry 08/04/17 08/04/17 08/04/17 07:22 07:25 07:30 Temperature Pulse Rate 72 70 Pulse Rate [ 75 Anterior Throughout] Respiratory 12 14 Rate Respiratory 12 Rate [Anterior Throughout] Blood Pressure 127/66 139/70 O2 Sat by Pulse 97 98 Oximetry 08/04/17 08/04/17 08/04/17 07:35 07:41 07:51 Temperature Pulse Rate 70 74 Pulse Rate [ 70 Anterior Throughout] Respiratory 12 12 Rate Respiratory 17 Rate [Anterior Throughout] Blood Pressure 139/70 138/67 O2 Sat by Pulse 98 98 Oximetry 08/04/17 08/04/17 08/04/17 08:00 08:01 08:11 Temperature 98.4 F Pulse Rate 74 80 Pulse Rate [ Anterior Throughout] Respiratory 14 12 12 Rate Respiratory Rate [Anterior Throughout] Blood Pressure 130/63 130/63 O2 Sat by Pulse 97 98 97 Oximetry 08/04/17 08/04/17 08/04/17 08:21 08:30 08:41 Temperature Pulse Rate 80 79 80 Pulse Rate [ Anterior Throughout] Respiratory 17 13 15 Rate Respiratory Rate [Anterior Throughout] Blood Pressure 126/64 118/62 118/62 O2 Sat by Pulse 97 97 97 Oximetry 08/04/17 08/04/17 08/04/17 08:51 09:00 09:11 Temperature Pulse Rate 81 87 83 Pulse Rate [ Anterior Throughout] Respiratory 18 12 17 Rate Respiratory Rate [Anterior Throughout] Blood Pressure 121/62 128/69 128/69 O2 Sat by Pulse 97 97 96 Oximetry 08/04/17 08/04/17 08/04/17 09:21 09:30 09:41 Temperature Pulse Rate 86 85 84 Pulse Rate [ Anterior Throughout] Respiratory 17 14 14 Rate Respiratory Rate [Anterior Throughout] Blood Pressure 118/66 105/64 105/64 O2 Sat by Pulse 96 97 96 Oximetry 08/04/17 08/04/17 08/04/17 09:51 10:00 10:11 Temperature Pulse Rate 86 85 86 Pulse Rate [ Anterior Throughout] Respiratory 19 16 19 Rate Respiratory Rate [Anterior Throughout] Blood Pressure 97/55 94/55 94/55 O2 Sat by Pulse 97 96 97 Oximetry 08/04/17 08/04/17 08/04/17 10:21 10:30 10:41 Temperature Pulse Rate 85 81 85 Pulse Rate [ Anterior Throughout] Respiratory 21 17 20 Rate Respiratory Rate [Anterior Throughout] Blood Pressure 99/56 101/52 101/52 O2 Sat by Pulse 96 97 97 Oximetry 08/04/17 08/04/17 08/04/17 10:51 11:00 11:11 Temperature Pulse Rate 83 85 89 Pulse Rate [ Anterior Throughout] Respiratory 17 13 27 H Rate Respiratory Rate [Anterior Throughout] Blood Pressure 101/52 97/60 97/60 O2 Sat by Pulse 96 96 96 Oximetry 08/04/17 08/04/17 08/04/17 11:21 11:30 11:40 Temperature Pulse Rate 92 H 96 H 92 H Pulse Rate [ Anterior Throughout] Respiratory 25 H 12 21 Rate Respiratory Rate [Anterior Throughout] Blood Pressure 98/57 85/46 85/46 O2 Sat by Pulse 98 100 99 Oximetry 08/04/17 08/04/17 08/04/17 11:50 12:00 12:11 Temperature 98.4 F Pulse Rate 94 H 91 H 92 H Pulse Rate [ Anterior Throughout] Respiratory 24 14 17 Rate Respiratory Rate [Anterior Throughout] Blood Pressure 62/36 64/37 64/37 O2 Sat by Pulse 98 98 98 Oximetry 08/04/17 08/04/17 08/04/17 12:21 12:30 12:35 Temperature Pulse Rate 95 H 94 H 93 H Pulse Rate [ Anterior Throughout] Respiratory 19 16 17 Rate Respiratory Rate [Anterior Throughout] Blood Pressure 64/37 66/39 66/39 O2 Sat by Pulse 99 99 97 Oximetry 08/04/17 08/04/17 12:41 12:51 Temperature Pulse Rate 91 H 76 Pulse Rate [ Anterior Throughout] Respiratory 22 20 Rate Respiratory Rate [Anterior Throughout] Blood Pressure 67/40 65/41 O2 Sat by Pulse 97 99 Oximetry Constitutional: other (on ventilator support, critically ill) Eyes: non-icteric ENT: oropharynx dry Neck: supple, other (tracheostomy present) Effort: normal Ascultation: Bilateral: other (coarse BS) Cardiovascular: regular rate and rhythm (no mrg) Gastrointestinal: normoactive bowel sounds, soft, non-tender, non-distended Integumentary: normal Extremities: no cyanosis, other (contraction deformities present. Edema present.) Neurologic: other (moving more when stimulated, nothing purposeful) Psychiatric: other (unable to assess) CBC and BMP: 08/04/17 03:53 08/04/17 03:53 ABG, PT/INR, D-dimer: ABG POC ABG pH 7.488 (7.35-7.45) H 08/04/17 03:52 ABG pH 7.327 pH Units (7.350-7.450) L 07/29/17 01:41 POC ABG pCO2 33.3 (35-45) L 08/04/17 03:52 ABG pCO2 TNR 07/29/17 01:41 POC ABG pO2 111 (80-105) H 08/04/17 03:52 ABG pO2 TNR 07/29/17 01:41 POC ABG HCO3 25.3 08/04/17 03:52 POC ABG Total CO2 26 08/04/17 03:52 POC ABG O2 Sat 99 08/04/17 03:52 ABG O2 Saturation TNR 07/29/17 01:41 PT/INR, D-dimer PT 15.1 Sec. (12.2-14.9) H 08/04/17 10:07 INR 1.13 (0.87-1.13) 08/04/17 10:07 D-Dimer 1885.58 ng/mlDDU (0-234) H 07/30/17 16:55 Abnormal lab findings: Abnormal Labs 07/29/17 07/29/17 07/29/17 01:41 01:41 01:41 WBC 21.0 H RBC Hgb 9.7 L Hct MCV MCH 24 L RDW 19.0 H Lymph % (Auto) Gove % (Auto) Seg Neutrophils % Seg Neuts % (Manual) 77.0 H Lymphocytes % (Manual) 4.5 L Nucleated RBC % 1.0 H Seg Neutrophils # Seg Neutrophils # Man 16.2 H Lymphocytes # (Manual) 0.9 L Monocytes # (Manual) PT 54.1 H INR 5.49 H* APTT 55.7 H Fibrinogen D-Dimer POC ABG pH ABG pH POC ABG pCO2 POC ABG pO2 Sodium Potassium Chloride Carbon Dioxide BUN Creatinine Glucose POC Glucose Lactic Acid 9.30 H* Calcium Iron TIBC Total Creatine Kinase Troponin T Total Protein Albumin LDL Cholesterol Direct HDL Cholesterol Vitamin B12 Urine WBC (Auto) Vancomycin Trough Crossmatch 07/29/17 07/29/17 07/29/17 01:41 01:41 02:45 WBC RBC Hgb Hct MCV MCH RDW Lymph % (Auto) Gove % (Auto) Seg Neutrophils % Seg Neuts % (Manual) Lymphocytes % (Manual) Nucleated RBC % Seg Neutrophils # Seg Neutrophils # Man Lymphocytes # (Manual) Monocytes # (Manual) PT INR APTT Fibrinogen D-Dimer POC ABG pH ABG pH 7.327 L POC ABG pCO2 32.9 L POC ABG pO2 74 L Sodium 154 H Potassium Chloride 109.8 H Carbon Dioxide BUN 43 H Creatinine 1.3 H Glucose 682 H* POC Glucose Lactic Acid Calcium Iron TIBC Total Creatine Kinase Troponin T 0.209 H* Total Protein Albumin 2.0 L LDL Cholesterol Direct 14 L HDL Cholesterol 13 L Vitamin B12 Urine WBC (Auto) Vancomycin Trough Crossmatch 07/29/17 07/29/17 07/29/17 03:19 04:11 04:11 WBC RBC Hgb Hct MCV MCH RDW Lymph % (Auto) Gove % (Auto) Seg Neutrophils % Seg Neuts % (Manual) Lymphocytes % (Manual) Nucleated RBC % Seg Neutrophils # Seg Neutrophils # Man Lymphocytes # (Manual) Monocytes # (Manual) PT INR APTT Fibrinogen D-Dimer POC ABG pH ABG pH POC ABG pCO2 POC ABG pO2 Sodium Potassium Chloride Carbon Dioxide BUN Creatinine Glucose POC Glucose Lactic Acid 8.30 H* 7.50 H* Calcium Iron TIBC Total Creatine Kinase Troponin T 0.169 H* Total Protein Albumin LDL Cholesterol Direct HDL Cholesterol Vitamin B12 Urine WBC (Auto) Vancomycin Trough Crossmatch 07/29/17 07/29/17 07/29/17 07:50 07:50 09:46 WBC RBC Hgb Hct MCV MCH RDW Lymph % (Auto) Gove % (Auto) Seg Neutrophils % Seg Neuts % (Manual) Lymphocytes % (Manual) Nucleated RBC % Seg Neutrophils # Seg Neutrophils # Man Lymphocytes # (Manual) Monocytes # (Manual) PT INR APTT Fibrinogen D-Dimer POC ABG pH ABG pH POC ABG pCO2 POC ABG pO2 Sodium Potassium Chloride Carbon Dioxide BUN Creatinine Glucose POC Glucose 380 H Lactic Acid 3.30 H* Calcium Iron TIBC Total Creatine Kinase 172 H Troponin T 0.111 H* D Total Protein Albumin LDL Cholesterol Direct HDL Cholesterol Vitamin B12 Urine WBC (Auto) Vancomycin Trough Crossmatch 07/29/17 07/29/17 07/29/17 10:05 10:05 12:45 WBC RBC Hgb Hct MCV MCH RDW Lymph % (Auto) Gove % (Auto) Seg Neutrophils % Seg Neuts % (Manual) Lymphocytes % (Manual) Nucleated RBC % Seg Neutrophils # Seg Neutrophils # Man Lymphocytes # (Manual) Monocytes # (Manual) PT INR APTT Fibrinogen D-Dimer POC ABG pH ABG pH POC ABG pCO2 POC ABG pO2 Sodium Potassium Chloride Carbon Dioxide BUN Creatinine Glucose POC Glucose 404 H Lactic Acid 2.30 H* Calcium Iron TIBC Total Creatine Kinase 179 H Troponin T 0.093 H Total Protein Albumin LDL Cholesterol Direct HDL Cholesterol Vitamin B12 Urine WBC (Auto) Vancomycin Trough Crossmatch 07/29/17 07/29/17 07/29/17 17:32 19:23 Unknown WBC RBC Hgb Hct MCV MCH RDW Lymph % (Auto) Gove % (Auto) Seg Neutrophils % Seg Neuts % (Manual) Lymphocytes % (Manual) Nucleated RBC % Seg Neutrophils # Seg Neutrophils # Man Lymphocytes # (Manual) Monocytes # (Manual) PT INR APTT Fibrinogen D-Dimer POC ABG pH ABG pH POC ABG pCO2 POC ABG pO2 Sodium 156 H Potassium 2.6 L* D Chloride 119.9 H Carbon Dioxide BUN 25 H Creatinine Glucose 275 H POC Glucose 343 H Lactic Acid Calcium 7.7 L Iron TIBC Total Creatine Kinase Troponin T Total Protein Albumin LDL Cholesterol Direct HDL Cholesterol Vitamin B12 Urine WBC (Auto) 169.0 H Vancomycin Trough Crossmatch 07/30/17 07/30/17 07/30/17 00:02 05:33 05:40 WBC 23.9 H RBC 3.51 L Hgb 8.3 L Hct 26.8 L MCV 77 L MCH 24 L RDW 18.3 H Lymph % (Auto) Gove % (Auto) Seg Neutrophils % Seg Neuts % (Manual) 84.0 H Lymphocytes % (Manual) 7.0 L Nucleated RBC % Seg Neutrophils # Seg Neutrophils # Man 20.1 H Lymphocytes # (Manual) Monocytes # (Manual) PT INR APTT Fibrinogen D-Dimer POC ABG pH ABG pH POC ABG pCO2 POC ABG pO2 Sodium Potassium Chloride Carbon Dioxide BUN Creatinine Glucose POC Glucose 186 H 246 H Lactic Acid Calcium Iron TIBC Total Creatine Kinase Troponin T Total Protein Albumin LDL Cholesterol Direct HDL Cholesterol Vitamin B12 Urine WBC (Auto) Vancomycin Trough Crossmatch 07/30/17 07/30/17 07/30/17 05:40 06:13 11:53 WBC RBC Hgb Hct MCV MCH RDW Lymph % (Auto) Gove % (Auto) Seg Neutrophils % Seg Neuts % (Manual) Lymphocytes % (Manual) Nucleated RBC % Seg Neutrophils # Seg Neutrophils # Man Lymphocytes # (Manual) Monocytes # (Manual) PT INR APTT Fibrinogen D-Dimer POC ABG pH 7.461 H ABG pH POC ABG pCO2 33.9 L POC ABG pO2 226 H Sodium 156 H Potassium 3.2 L D Chloride 117.5 H Carbon Dioxide BUN 19 H Creatinine 0.6 L Glucose 212 H POC Glucose 166 H Lactic Acid Calcium 7.8 L Iron TIBC Total Creatine Kinase Troponin T Total Protein Albumin LDL Cholesterol Direct HDL Cholesterol Vitamin B12 Urine WBC (Auto) Vancomycin Trough Crossmatch 07/30/17 07/30/17 07/30/17 15:54 16:52 16:55 WBC 22.9 H RBC 3.29 L Hgb 7.8 L Hct 25.1 L MCV 76 L MCH 24 L RDW 18.2 H Lymph % (Auto) Gove % (Auto) Seg Neutrophils % Seg Neuts % (Manual) 89.0 H Lymphocytes % (Manual) 7.0 L Nucleated RBC % Seg Neutrophils # Seg Neutrophils # Man 20.4 H Lymphocytes # (Manual) Monocytes # (Manual) 0.9 H PT INR APTT Fibrinogen D-Dimer POC ABG pH ABG pH POC ABG pCO2 POC ABG pO2 Sodium 154 H Potassium 3.5 L Chloride 122.1 H Carbon Dioxide BUN Creatinine 0.5 L Glucose 180 H POC Glucose Lactic Acid Calcium 7.6 L Iron TIBC Total Creatine Kinase Troponin T Total Protein Albumin LDL Cholesterol Direct HDL Cholesterol Vitamin B12 Urine WBC (Auto) Vancomycin Trough 29.7 H Crossmatch 07/30/17 07/30/17 07/30/17 16:55 17:06 21:00 WBC RBC Hgb Hct MCV MCH RDW Lymph % (Auto) Gove % (Auto) Seg Neutrophils % Seg Neuts % (Manual) Lymphocytes % (Manual) Nucleated RBC % Seg Neutrophils # Seg Neutrophils # Man Lymphocytes # (Manual) Monocytes # (Manual) PT 44.7 H INR 4.33 H APTT 62.8 H* Fibrinogen 651 H D-Dimer 1885.58 H POC ABG pH ABG pH POC ABG pCO2 POC ABG pO2 Sodium 150 H Potassium 3.2 L Chloride 114.3 H Carbon Dioxide BUN Creatinine 0.5 L Glucose 167 H POC Glucose 213 H Lactic Acid Calcium 7.7 L Iron TIBC Total Creatine Kinase Troponin T Total Protein Albumin LDL Cholesterol Direct HDL Cholesterol Vitamin B12 Urine WBC (Auto) Vancomycin Trough Crossmatch 07/30/17 07/31/17 07/31/17 Unknown 00:29 04:00 WBC RBC Hgb Hct MCV MCH RDW Lymph % (Auto) Gove % (Auto) Seg Neutrophils % Seg Neuts % (Manual) Lymphocytes % (Manual) Nucleated RBC % Seg Neutrophils # Seg Neutrophils # Man Lymphocytes # (Manual) Monocytes # (Manual) PT 57.1 H 33.9 H INR 5.87 H* 3.08 H APTT 53.6 H Fibrinogen D-Dimer POC ABG pH ABG pH POC ABG pCO2 POC ABG pO2 Sodium Potassium Chloride Carbon Dioxide BUN Creatinine Glucose POC Glucose 198 H Lactic Acid Calcium Iron TIBC Total Creatine Kinase Troponin T Total Protein Albumin LDL Cholesterol Direct HDL Cholesterol Vitamin B12 Urine WBC (Auto) Vancomycin Trough Crossmatch 07/31/17 07/31/17 07/31/17 04:00 04:00 05:51 WBC 17.2 H RBC 3.14 L Hgb 7.5 L Hct 23.9 L MCV 76 L MCH 24 L RDW 18.3 H Lymph % (Auto) 9.1 L Gove % (Auto) Seg Neutrophils % 88.1 H Seg Neuts % (Manual) Lymphocytes % (Manual) Nucleated RBC % Seg Neutrophils # 15.2 H Seg Neutrophils # Man Lymphocytes # (Manual) Monocytes # (Manual) PT INR APTT Fibrinogen D-Dimer POC ABG pH 7.538 H ABG pH POC ABG pCO2 25.6 L POC ABG pO2 118 H Sodium 147 H Potassium Chloride 113.9 H Carbon Dioxide BUN Creatinine 0.4 L Glucose 175 H POC Glucose Lactic Acid Calcium 7.6 L Iron TIBC Total Creatine Kinase Troponin T Total Protein Albumin LDL Cholesterol Direct HDL Cholesterol Vitamin B12 Urine WBC (Auto) Vancomycin Trough Crossmatch 07/31/17 07/31/17 07/31/17 05:51 10:45 11:25 WBC RBC Hgb Hct MCV MCH RDW Lymph % (Auto) Gove % (Auto) Seg Neutrophils % Seg Neuts % (Manual) Lymphocytes % (Manual) Nucleated RBC % Seg Neutrophils # Seg Neutrophils # Man Lymphocytes # (Manual) Monocytes # (Manual) PT INR APTT Fibrinogen D-Dimer POC ABG pH ABG pH POC ABG pCO2 POC ABG pO2 Sodium Potassium 3.3 L Chloride 108.4 H Carbon Dioxide BUN Creatinine 0.4 L Glucose 139 H POC Glucose 176 H 147 H Lactic Acid Calcium 7.6 L Iron TIBC Total Creatine Kinase Troponin T Total Protein Albumin LDL Cholesterol Direct HDL Cholesterol Vitamin B12 Urine WBC (Auto) Vancomycin Trough Crossmatch 07/31/17 08/01/17 08/01/17 17:46 00:01 05:07 WBC RBC Hgb Hct MCV MCH RDW Lymph % (Auto) Gove % (Auto) Seg Neutrophils % Seg Neuts % (Manual) Lymphocytes % (Manual) Nucleated RBC % Seg Neutrophils # Seg Neutrophils # Man Lymphocytes # (Manual) Monocytes # (Manual) PT INR APTT Fibrinogen D-Dimer POC ABG pH ABG pH POC ABG pCO2 POC ABG pO2 Sodium Potassium Chloride Carbon Dioxide BUN Creatinine Glucose POC Glucose 222 H 240 H 195 H Lactic Acid Calcium Iron TIBC Total Creatine Kinase Troponin T Total Protein Albumin LDL Cholesterol Direct HDL Cholesterol Vitamin B12 Urine WBC (Auto) Vancomycin Trough Crossmatch 08/01/17 08/01/17 08/01/17 05:46 06:38 06:38 WBC 11.7 H RBC 3.00 L Hgb 7.1 L Hct 22.6 L MCV 75 L MCH 24 L RDW 18.4 H Lymph % (Auto) 12.8 L Gove % (Auto) Seg Neutrophils % 82.5 H Seg Neuts % (Manual) Lymphocytes % (Manual) Nucleated RBC % Seg Neutrophils # 9.7 H Seg Neutrophils # Man Lymphocytes # (Manual) Monocytes # (Manual) PT INR APTT Fibrinogen D-Dimer POC ABG pH 7.491 H ABG pH POC ABG pCO2 26.6 L POC ABG pO2 Sodium Potassium Chloride Carbon Dioxide BUN Creatinine 0.4 L Glucose 191 H POC Glucose Lactic Acid Calcium 7.7 L Iron TIBC Total Creatine Kinase Troponin T Total Protein Albumin LDL Cholesterol Direct HDL Cholesterol Vitamin B12 Urine WBC (Auto) Vancomycin Trough Crossmatch 08/01/17 08/01/17 08/01/17 11:47 17:40 17:40 WBC RBC Hgb Hct MCV MCH RDW Lymph % (Auto) Gove % (Auto) Seg Neutrophils % Seg Neuts % (Manual) Lymphocytes % (Manual) Nucleated RBC % Seg Neutrophils # Seg Neutrophils # Man Lymphocytes # (Manual) Monocytes # (Manual) PT 20.4 H INR 1.64 H APTT Fibrinogen D-Dimer POC ABG pH ABG pH POC ABG pCO2 POC ABG pO2 Sodium Potassium Chloride Carbon Dioxide BUN Creatinine Glucose POC Glucose 289 H Lactic Acid Calcium Iron 17 L TIBC 103 L Total Creatine Kinase Troponin T Total Protein Albumin LDL Cholesterol Direct HDL Cholesterol Vitamin B12 Urine WBC (Auto) Vancomycin Trough Crossmatch 08/01/17 08/01/17 08/01/17 17:40 17:43 23:48 WBC RBC Hgb Hct MCV MCH RDW Lymph % (Auto) Gove % (Auto) Seg Neutrophils % Seg Neuts % (Manual) Lymphocytes % (Manual) Nucleated RBC % Seg Neutrophils # Seg Neutrophils # Man Lymphocytes # (Manual) Monocytes # (Manual) PT INR APTT Fibrinogen D-Dimer POC ABG pH ABG pH POC ABG pCO2 POC ABG pO2 Sodium Potassium Chloride Carbon Dioxide BUN Creatinine Glucose POC Glucose 254 H 248 H Lactic Acid Calcium Iron TIBC Total Creatine Kinase Troponin T Total Protein Albumin LDL Cholesterol Direct HDL Cholesterol Vitamin B12 1830 H Urine WBC (Auto) Vancomycin Trough Crossmatch 08/02/17 08/02/17 08/02/17 03:56 04:00 04:00 WBC 12.7 H RBC 3.04 L Hgb 7.2 L Hct 22.8 L MCV 75 L MCH 24 L RDW 18.0 H Lymph % (Auto) 13.1 L Gove % (Auto) Seg Neutrophils % 81.5 H Seg Neuts % (Manual) Lymphocytes % (Manual) Nucleated RBC % Seg Neutrophils # 10.3 H Seg Neutrophils # Man Lymphocytes # (Manual) Monocytes # (Manual) PT INR APTT Fibrinogen D-Dimer POC ABG pH 7.537 H ABG pH POC ABG pCO2 28.4 L POC ABG pO2 109 H Sodium Potassium 3.0 L Chloride 109.0 H Carbon Dioxide 20 L BUN 6 L Creatinine 0.3 L Glucose 196 H POC Glucose Lactic Acid Calcium 6.3 L D Iron TIBC Total Creatine Kinase Troponin T Total Protein Albumin LDL Cholesterol Direct HDL Cholesterol Vitamin B12 Urine WBC (Auto) Vancomycin Trough Crossmatch 08/02/17 08/02/17 08/02/17 05:20 10:00 12:16 WBC RBC Hgb Hct MCV MCH RDW Lymph % (Auto) Gove % (Auto) Seg Neutrophils % Seg Neuts % (Manual) Lymphocytes % (Manual) Nucleated RBC % Seg Neutrophils # Seg Neutrophils # Man Lymphocytes # (Manual) Monocytes # (Manual) PT 18.6 H INR 1.46 H APTT Fibrinogen D-Dimer POC ABG pH ABG pH POC ABG pCO2 POC ABG pO2 Sodium Potassium Chloride Carbon Dioxide BUN Creatinine Glucose POC Glucose 295 H 296 H Lactic Acid Calcium Iron TIBC Total Creatine Kinase Troponin T Total Protein Albumin LDL Cholesterol Direct HDL Cholesterol Vitamin B12 Urine WBC (Auto) Vancomycin Trough Crossmatch 08/02/17 08/02/17 08/03/17 13:10 18:03 00:19 WBC RBC Hgb Hct MCV MCH RDW Lymph % (Auto) Gove % (Auto) Seg Neutrophils % Seg Neuts % (Manual) Lymphocytes % (Manual) Nucleated RBC % Seg Neutrophils # Seg Neutrophils # Man Lymphocytes # (Manual) Monocytes # (Manual) PT INR APTT Fibrinogen D-Dimer POC ABG pH 7.500 H ABG pH POC ABG pCO2 31.9 L POC ABG pO2 107 H Sodium Potassium Chloride Carbon Dioxide BUN Creatinine Glucose POC Glucose 273 H 244 H Lactic Acid Calcium Iron TIBC Total Creatine Kinase Troponin T Total Protein Albumin LDL Cholesterol Direct HDL Cholesterol Vitamin B12 Urine WBC (Auto) Vancomycin Trough Crossmatch 08/03/17 08/03/17 08/03/17 03:30 03:30 05:14 WBC RBC 2.67 L Hgb 6.5 L Hct 20.2 L MCV 76 L MCH 24 L RDW 18.3 H Lymph % (Auto) Gove % (Auto) 7.4 H Seg Neutrophils % 75.9 H Seg Neuts % (Manual) Lymphocytes % (Manual) Nucleated RBC % Seg Neutrophils # Seg Neutrophils # Man Lymphocytes # (Manual) Monocytes # (Manual) PT INR APTT Fibrinogen D-Dimer POC ABG pH ABG pH POC ABG pCO2 POC ABG pO2 Sodium 135 L Potassium Chloride Carbon Dioxide BUN Creatinine 0.3 L Glucose 207 H POC Glucose 205 H Lactic Acid Calcium 7.5 L D Iron TIBC Total Creatine Kinase Troponin T Total Protein Albumin LDL Cholesterol Direct HDL Cholesterol Vitamin B12 Urine WBC (Auto) Vancomycin Trough Crossmatch 08/03/17 08/03/17 08/03/17 05:14 08:03 12:11 WBC RBC Hgb Hct MCV MCH RDW Lymph % (Auto) Gove % (Auto) Seg Neutrophils % Seg Neuts % (Manual) Lymphocytes % (Manual) Nucleated RBC % Seg Neutrophils # Seg Neutrophils # Man Lymphocytes # (Manual) Monocytes # (Manual) PT INR APTT Fibrinogen D-Dimer POC ABG pH 7.479 H ABG pH POC ABG pCO2 34.5 L POC ABG pO2 141 H Sodium Potassium Chloride Carbon Dioxide BUN Creatinine Glucose POC Glucose 270 H Lactic Acid Calcium Iron TIBC Total Creatine Kinase Troponin T Total Protein Albumin LDL Cholesterol Direct HDL Cholesterol Vitamin B12 Urine WBC (Auto) Vancomycin Trough Crossmatch See Detail 08/03/17 08/03/17 08/04/17 17:27 23:59 03:52 WBC RBC Hgb Hct MCV MCH RDW Lymph % (Auto) [place] % (Auto) Seg Neutrophils % Seg Neuts % (Manual) Lymphocytes % (Manual) Nucleated RBC % Seg Neutrophils # Seg Neutrophils # Man Lymphocytes # (Manual) Monocytes # (Manual) PT INR APTT Fibrinogen D-Dimer POC ABG pH 7.488 H ABG pH POC ABG pCO2 33.3 L POC ABG pO2 111 H Sodium Potassium Chloride Carbon Dioxide BUN Creatinine Glucose POC Glucose 219 H 162 H Lactic Acid Calcium Iron TIBC Total Creatine Kinase Troponin T Total Protein Albumin LDL Cholesterol Direct HDL Cholesterol Vitamin B12 Urine WBC (Auto) Vancomycin Trough Crossmatch 08/04/17 08/04/17 08/04/17 03:53 03:53 05:48 WBC RBC Hgb Hct MCV 76 L MCH 26 L RDW 19.4 H Lymph % (Auto) 12.8 L [place] % (Auto) Seg Neutrophils % 79.1 H Seg Neuts % (Manual) Lymphocytes % (Manual) Nucleated RBC % Seg Neutrophils # Seg Neutrophils # Man Lymphocytes # (Manual) Monocytes # (Manual) PT INR APTT Fibrinogen D-Dimer POC ABG pH ABG pH POC ABG pCO2 POC ABG pO2 Sodium Potassium Chloride Carbon Dioxide 21 L BUN Creatinine 0.3 L Glucose 146 H POC Glucose 137 H Lactic Acid Calcium 7.6 L Iron TIBC Total Creatine Kinase Troponin T Total Protein 5.1 L Albumin 2.2 L LDL Cholesterol Direct HDL Cholesterol Vitamin B12 Urine WBC (Auto) Vancomycin Trough Crossmatch 08/04/17 10:07 WBC RBC Hgb Hct MCV MCH RDW Lymph % (Auto) [place] % (Auto) Seg Neutrophils % Seg Neuts % (Manual) Lymphocytes % (Manual) Nucleated RBC % Seg Neutrophils # Seg Neutrophils # Man Lymphocytes # (Manual) Monocytes # (Manual) PT 15.1 H INR APTT Fibrinogen D-Dimer POC ABG pH ABG pH POC ABG pCO2 POC ABG pO2 Sodium Potassium Chloride Carbon Dioxide BUN Creatinine Glucose POC Glucose Lactic Acid Calcium Iron TIBC Total Creatine Kinase Troponin T Total Protein Albumin LDL Cholesterol Direct HDL Cholesterol Vitamin B12 Urine WBC (Auto) Vancomycin Trough Crossmatch Chest x-ray: report reviewed, image reviewed
--- NOTE | 2017-08-04 16:28 | Progress Note ---
Assessment and Plan Assessment and plan: Septic shock - Patient is managed according to sepsis protocol, IV antibiotics, fluids - Patient is off pressors now Pneumonia, LLL. POA - continue IV antibiotics - Blood culture no growth so far Respiratory failure on trach -Pulmonary is following - Trach Anoxic brain injury, patient is on PEG and trach chronically Coumadin toxicity -INR is dropping down - hematology oncology consulted Dr Dickerson, who is her primary care Dr Severe anemia - patient transfused with 2 units of blood pending Post transfusion H/H Acute Cystsis -Complete abx as recommended. History of multiple strokes - Patient is bedbound Dilated CMP Nutrition - Through PEG tubes, GI consult appreciated Disposition - Continue ICU care Family on discussion with Dr Renae wants patient to remain a DNR The high probability of a clinically significant, sudden or life threatening deterioration of the [cv, neurology] system(s) required my full and direct attention, intervention and personal management. The aggregate critical care time was [34] minutes. This time is in addition to time spent performing reported procedures but includes the following: [x] Data Review and interpretation [x] Patient assessment and monitoring of vital signs [x] Documentation [x] Medication orders and management s History Interval history: Patient seen and examined, remains unresponsive. Hospitalist Physical - Physical exam Narrative exam: Patient is comatose, on PEG and trach, on A/C. Vital signs as documented. Head exam is unremarkable. No scleral icterus . Neck is without jugular venous distension, thyromegaly, or carotid bruits. Lungs are clear to auscultation. Cardiac exam reveals regular rate and Rhythm. First and second heart sounds normal. No murmurs, rubs or gallops. Abdominal exam reveals normal bowel sounds, no masses, no organomegaly and no aortic enlargement. Extremities contracted, decubitus ulcer. 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.opens eys but not following any commands - Constitutional Vitals: Temp Pulse Resp BP Pulse Ox 98.2 F 69 34 H 141/74 98 08/04/17 15:58 08/04/17 16:11 08/04/17 16:11 08/04/17 16:11 08/04/17 16:11 General appearance: Present: no acute distress Results - Labs CBC & Chem 7: 08/04/17 03:53 08/04/17 03:53 Labs: Laboratory Last Values WBC 9.5 K/mm3 (4.5-11.0) 08/04/17 03:53 RBC 4.11 M/mm3 (3.65-5.03) 08/04/17 03:53 Hgb 10.5 gm/dl (10.1-14.3) D 08/04/17 03:53 Hct 31.2 % (30.3-42.9) D 08/04/17 03:53 MCV 76 fl (79-97) L 08/04/17 03:53 MCH 26 pg (28-32) L 08/04/17 03:53 MCHC 34 % (30-34) 08/04/17 03:53 RDW 19.4 % (13.2-15.2) H 08/04/17 03:53 Plt Count 165 K/mm3 (140-440) 08/04/17 03:53 Lymph % (Auto) 12.8 % (13.4-35.0) L 08/04/17 03:53 [place] % (Auto) 5.8 % (0.0-7.3) 08/04/17 03:53 Eos % (Auto) 1.7 % (0.0-4.3) 08/04/17 03:53 Baso % (Auto) 0.6 % (0.0-1.8) 08/04/17 03:53 Lymph # 1.2 K/mm3 (1.2-5.4) 08/04/17 03:53 [place] # 0.5 K/mm3 (0.0-0.8) 08/04/17 03:53 Eos # 0.2 K/mm3 (0.0-0.4) 08/04/17 03:53 Baso # 0.1 K/mm3 (0.0-0.1) 08/04/17 03:53 Add Manual Diff Complete 07/30/17 16:52 Total Counted 100 07/30/17 16:52 Seg Neutrophils % 79.1 % (40.0-70.0) H 08/04/17 03:53 Seg Neuts % (Manual) 89.0 % (40.0-70.0) H 07/30/17 16:52 Band Neutrophils % 0 % 07/30/17 16:52 Lymphocytes % (Manual) 7.0 % (13.4-35.0) L 07/30/17 16:52 Reactive Lymphs % (Man) 0 % 07/30/17 16:52 Monocytes % (Manual) 4.0 % (0.0-7.3) 07/30/17 16:52 Eosinophils % (Manual) 0 % (0.0-4.3) 07/30/17 16:52 Basophils % (Manual) 0 % (0.0-1.8) 07/30/17 16:52 Metamyelocytes % 0 % 07/30/17 16:52 Myelocytes % 0 % 07/30/17 16:52 Promyelocytes % 0 % 07/30/17 16:52 Blast Cells % 0 % 07/30/17 16:52 Nucleated RBC % Not Reportable 07/30/17 16:52 Seg Neutrophils # 7.5 K/mm3 (1.8-7.7) 08/04/17 03:53 Seg Neutrophils # Man 20.4 K/mm3 (1.8-7.7) H 07/30/17 16:52 Band Neutrophils # 0.0 K/mm3 07/30/17 16:52 Lymphocytes # (Manual) 1.6 K/mm3 (1.2-5.4) 07/30/17 16:52 Abs React Lymphs (Man) 0.0 K/mm3 07/30/17 16:52 Monocytes # (Manual) 0.9 K/mm3 (0.0-0.8) H 07/30/17 16:52 Eosinophils # (Manual) 0.0 K/mm3 (0.0-0.4) 07/30/17 16:52 Basophils # (Manual) 0.0 K/mm3 (0.0-0.1) 07/30/17 16:52 Metamyelocytes # 0.0 K/mm3 07/30/17 16:52 Myelocytes # 0.0 K/mm3 07/30/17 16:52 Promyelocytes # 0.0 K/mm3 07/30/17 16:52 Blast Cells # 0.0 K/mm3 07/30/17 16:52 WBC Morphology Not Reportable 07/30/17 16:52 Hypersegmented Neuts Not Reportable 07/30/17 16:52 Hyposegmented Neuts Not Reportable 07/30/17 16:52 Hypogranular Neuts Not Reportable 07/30/17 16:52 Smudge Cells Not Reportable 07/30/17 16:52 Toxic Granulation Not Reportable 07/30/17 16:52 Toxic Vacuolation Not Reportable 07/30/17 16:52 Dohle Bodies Not Reportable 07/30/17 16:52 Pelger-Huet Anomaly Not Reportable 07/30/17 16:52 Zach Rods Not Reportable 07/30/17 16:52 Platelet Estimate Consistent w auto 07/30/17 16:52 Clumped Platelets Not Reportable 07/30/17 16:52 Plt Clumps, EDTA Not Reportable 07/30/17 16:52 Large Platelets 1+ 07/30/17 16:52 Giant Platelets Not Reportable 07/30/17 16:52 Platelet Satelliting Not Reportable 07/30/17 16:52 Plt Morphology Comment Not Reportable 07/30/17 16:52 RBC Morphology Not Reportable 07/30/17 16:52 Dimorphic RBCs Not Reportable 07/30/17 16:52 Polychromasia Not Reportable 07/30/17 16:52 Hypochromasia 1+ 07/30/17 16:52 Poikilocytosis 1+ 07/30/17 16:52 Anisocytosis 1+ 07/30/17 16:52 Microcytosis Not Reportable 07/30/17 16:52 Macrocytosis Not Reportable 07/30/17 16:52 Spherocytes Not Reportable 07/30/17 16:52 Pappenheimer Bodies Not Reportable 07/30/17 16:52 Sickle Cells Not Reportable 07/30/17 16:52 Target Cells Not Reportable 07/30/17 16:52 Tear Drop Cells Not Reportable 07/30/17 16:52 Ovalocytes Not Reportable 07/30/17 16:52 Helmet Cells Not Reportable 07/30/17 16:52 [place] Bodies Not Reportable 07/30/17 16:52 Imogene Rings Not Reportable 07/30/17 16:52 [place] Cells Not Reportable 07/30/17 16:52 Bite Cells Not Reportable 07/30/17 16:52 Crenated Cell Not Reportable 07/30/17 16:52 Elliptocytes Not Reportable 07/30/17 16:52 Acanthocytes (Spur) Not Reportable 07/30/17 16:52 Rouleaux Not Reportable 07/30/17 16:52 Hemoglobin C Crystals Not Reportable 07/30/17 16:52 Schistocytes Not Reportable 07/30/17 16:52 Malaria parasites Not Reportable 07/30/17 16:52 He Bodies Not Reportable 07/30/17 16:52 Hem Pathologist Commnt No 07/30/17 16:52 PT 15.1 Sec. (12.2-14.9) H 08/04/17 10:07 INR 1.13 (0.87-1.13) 08/04/17 10:07 APTT 53.6 Sec. (24.2-36.6) H 07/31/17 04:00 Fibrinogen 651 mg/dl (211-480) H 07/30/17 16:55 D-Dimer 1885.58 ng/mlDDU (0-234) H 07/30/17 16:55 POC ABG pH 7.488 (7.35-7.45) H 08/04/17 03:52 ABG pH 7.327 pH Units (7.350-7.450) L 07/29/17 01:41 POC ABG pCO2 33.3 (35-45) L 08/04/17 03:52 ABG pCO2 TNR 07/29/17 01:41 POC ABG pO2 111 (80-105) H 08/04/17 03:52 ABG pO2 TNR 07/29/17 01:41 POC ABG HCO3 25.3 08/04/17 03:52 ABG HCO3 TNR 07/29/17 01:41 POC ABG Total CO2 26 08/04/17 03:52 POC ABG O2 Sat 99 08/04/17 03:52 ABG O2 Saturation TNR 07/29/17 01:41 ABG O2 Content TNR 07/29/17 01:41 POC ABG Base Excess 2 08/04/17 03:52 ABG Base Excess TNR 07/29/17 01:41 ABG Hemoglobin TNR 07/29/17 01:41 ABG Carboxyhemoglobin TNR 07/29/17 01:41 ABG Methemoglobin TNR 07/29/17 01:41 VBG pH 7.327 (7.320-7.420) 07/29/17 01:41 Oxyhemoglobin TNR 07/29/17 01:41 FiO2 28 % 08/04/17 03:52 Sodium 139 mmol/L (137-145) 08/04/17 03:53 Potassium 3.9 mmol/L (3.6-5.0) 08/04/17 03:53 Chloride 104.1 mmol/L (98-107) 08/04/17 03:53 Carbon Dioxide 21 mmol/L (22-30) L 08/04/17 03:53 Anion Gap 18 mmol/L 08/04/17 03:53 BUN 7 mg/dL (7-17) 08/04/17 03:53 Creatinine 0.3 mg/dL (0.7-1.2) L 08/04/17 03:53 Estimated GFR > 60 ml/min 08/04/17 03:53 BUN/Creatinine Ratio 23 % 08/04/17 03:53 Glucose 146 mg/dL (65-100) H 08/04/17 03:53 POC Glucose 156 (70-105) H 08/04/17 11:23 Lactic Acid 1.50 mmol/L (0.7-2.0) 07/31/17 10:45 Calcium 7.6 mg/dL (8.4-10.2) L 08/04/17 03:53 Iron 17 ug/dL (37-170) L 08/01/17 17:40 TIBC 103 mcg/dL (250-450) L 08/01/17 17:40 Total Bilirubin 0.40 mg/dL (0.1-1.2) 08/04/17 03:53 AST 29 units/L (5-40) 08/04/17 03:53 ALT 22 units/L (7-56) 08/04/17 03:53 Alkaline Phosphatase 55 units/L (35-129) 08/04/17 03:53 Lactate Dehydrogenase 148 units/L (91-180) 08/01/17 17:40 Total Creatine Kinase 179 units/L (30-135) H 07/29/17 10:05 CK-MB (CK-2) 3.0 ng/mL (0.0-4.0) 07/29/17 10:05 CK-MB (CK-2) Rel Index 1.6 (0-4) 07/29/17 10:05 Troponin T 0.093 ng/mL (0.00-0.029) H 07/29/17 10:05 Total Protein 5.1 g/dL (6.3-8.2) L 08/04/17 03:53 Albumin 2.2 g/dL (3.9-5) L 08/04/17 03:53 Albumin/Globulin Ratio 0.8 % 08/04/17 03:53 Triglycerides 115 mg/dL (2-149) 07/29/17 01:41 Cholesterol 50 mg/dL (50-199) 07/29/17 01:41 LDL Cholesterol Direct 14 mg/dL (50-130) L 07/29/17 01:41 HDL Cholesterol 13 mg/dL (40-59) L 07/29/17 01:41 Cholesterol/HDL Ratio 3.84 % 07/29/17 01:41 Vitamin B12 1830 pg/mL (211-911) H 08/01/17 17:40 Urine Color Yellow (Yellow) 07/29/17 Unknown Urine Turbidity Turbid (Clear) 07/29/17 Unknown Urine pH 5.0 (5.0-7.0) 07/29/17 Unknown Ur Specific [place] 1.024 (1.003-1.030) 07/29/17 Unknown Urine Protein 30 mg/dl mg/dL (Negative) 07/29/17 Unknown Urine Glucose (UA) >=500 mg/dL (Negative) 07/29/17 Unknown Urine Ketones Neg mg/dL (Negative) 07/29/17 Unknown Urine Blood Lg (Negative) 07/29/17 Unknown Urine Nitrite Neg (Negative) 07/29/17 Unknown Urine Bilirubin Neg (Negative) 07/29/17 Unknown Urine Urobilinogen < 2.0 mg/dL (<2.0) 07/29/17 Unknown Ur Leukocyte Esterase Mod (Negative) 07/29/17 Unknown Urine WBC (Auto) 169.0 /HPF (0.0-6.0) H 07/29/17 Unknown Urine RBC (Auto) > 182.0 /HPF (0.0-6.0) 07/29/17 Unknown U Epithel Cells (Auto) 9.0 /HPF (0-13.0) 07/29/17 Unknown Urine Bacteria (Auto) 4+ /HPF (Negative) 07/29/17 Unknown Urine WBC Clumps 3+ /HPF 07/29/17 Unknown Urine Mucus 1+ /HPF 07/29/17 Unknown Ur Yeast w Hyphae 1+ /HPF 07/29/17 Unknown Urine Yeast (Budding) 3+ /HPF 07/29/17 Unknown Vancomycin Trough 12.3 ug/mL (5.0-20.0) 08/01/17 15:29 Blood Type O POSITIVE 08/03/17 08:03 Antibody Screen Negative 08/03/17 08:03 Crossmatch See Detail 08/03/17 08:03
[2017-08-04] MEDS: SODIUM CHLORIDE FLUSH SYRINGE 10 ML IV SCH ×2 (18:32→22:16)
--- NOTE | 2017-08-04 21:14 | Progress Note ---
Assessment and Plan - Patient Problems (1) Pneumonia Current Visit: Yes Status: Acute Plan to address problem: follow pulmonary. (2) Left foot infection Current Visit: Yes Status: Acute Plan to address problem: Follow vascular. (3) Feeding by G-tube Current Visit: Yes Status: Acute Plan to address problem: tube care/management. (4) Coagulopathy Current Visit: Yes Status: Acute Plan to address problem: Monitor coags, and adjust as needed. Subjective Date of service: 08/04/17 Principal diagnosis: A/C respiratory failure Interval history: Patient seen/examined, resting in bed, VSS, afebrile. She desarts to the 60% when on her left side, and 100% on her right side. She has the PNA on the left side.labs reviewed, INR 1.46 Patient seen/examined, resting in bed, alert, 2nd unit of PRBC about to begin. VSS, afebrile, her Daughter at the bed side, case d/w her. Patient seen/examined, resting in bed, records/labs reviewed., and stable., still on the vent.will continue to follow you. Objective - Constitutional Vitals: Vital Signs - 12hr 08/04/17 08/04/17 08/04/17 09:11 09:21 09:30 Temperature Pulse Rate 83 86 85 Pulse Rate [ Anterior Throughout] Respiratory 17 17 14 Rate Respiratory Rate [Anterior Throughout] Blood Pressure 128/69 118/66 105/64 O2 Sat by Pulse 96 96 97 Oximetry O2 Sat by Pulse Oximetry [ Changed] 08/04/17 08/04/17 08/04/17 09:41 09:51 10:00 Temperature Pulse Rate 84 86 85 Pulse Rate [ Anterior Throughout] Respiratory 14 19 16 Rate Respiratory Rate [Anterior Throughout] Blood Pressure 105/64 97/55 94/55 O2 Sat by Pulse 96 97 96 Oximetry O2 Sat by Pulse Oximetry [ Changed] 08/04/17 08/04/17 08/04/17 10:11 10:21 10:30 Temperature Pulse Rate 86 85 81 Pulse Rate [ Anterior Throughout] Respiratory 19 21 17 Rate Respiratory Rate [Anterior Throughout] Blood Pressure 94/55 99/56 101/52 O2 Sat by Pulse 97 96 97 Oximetry O2 Sat by Pulse Oximetry [ Changed] 08/04/17 08/04/17 08/04/17 10:41 10:51 11:00 Temperature Pulse Rate 85 83 85 Pulse Rate [ Anterior Throughout] Respiratory 20 17 13 Rate Respiratory Rate [Anterior Throughout] Blood Pressure 101/52 101/52 97/60 O2 Sat by Pulse 97 96 96 Oximetry O2 Sat by Pulse Oximetry [ Changed] 08/04/17 08/04/17 08/04/17 11:11 11:21 11:30 Temperature Pulse Rate 89 92 H 96 H Pulse Rate [ Anterior Throughout] Respiratory 27 H 25 H 12 Rate Respiratory Rate [Anterior Throughout] Blood Pressure 97/60 98/57 85/46 O2 Sat by Pulse 96 98 100 Oximetry O2 Sat by Pulse Oximetry [ Changed] 08/04/17 08/04/17 08/04/17 11:40 11:50 12:00 Temperature 98.4 F Pulse Rate 92 H 94 H 91 H Pulse Rate [ Anterior Throughout] Respiratory 21 24 14 Rate Respiratory Rate [Anterior Throughout] Blood Pressure 85/46 62/36 64/37 O2 Sat by Pulse 99 98 98 Oximetry O2 Sat by Pulse Oximetry [ Changed] 08/04/17 08/04/17 08/04/17 12:11 12:21 12:30 Temperature Pulse Rate 92 H 95 H 94 H Pulse Rate [ Anterior Throughout] Respiratory 17 19 16 Rate Respiratory Rate [Anterior Throughout] Blood Pressure 64/37 64/37 66/39 O2 Sat by Pulse 98 99 99 Oximetry O2 Sat by Pulse Oximetry [ Changed] 08/04/17 08/04/17 08/04/17 12:35 12:41 12:51 Temperature Pulse Rate 93 H 91 H 76 Pulse Rate [ Anterior Throughout] Respiratory 17 22 20 Rate Respiratory Rate [Anterior Throughout] Blood Pressure 66/39 67/40 65/41 O2 Sat by Pulse 97 97 99 Oximetry O2 Sat by Pulse Oximetry [ Changed] 08/04/17 08/04/17 08/04/17 13:01 13:11 13:21 Temperature Pulse Rate 76 70 77 Pulse Rate [ Anterior Throughout] Respiratory 22 13 19 Rate Respiratory Rate [Anterior Throughout] Blood Pressure 117/67 117/67 124/66 O2 Sat by Pulse Oximetry O2 Sat by Pulse Oximetry [ Changed] 08/04/17 08/04/17 08/04/17 13:31 13:41 13:50 Temperature Pulse Rate 71 72 69 Pulse Rate [ Anterior Throughout] Respiratory 23 18 17 Rate Respiratory Rate [Anterior Throughout] Blood Pressure 133/64 133/64 123/60 O2 Sat by Pulse Oximetry O2 Sat by Pulse Oximetry [ Changed] 08/04/17 08/04/17 08/04/17 14:01 14:11 14:21 Temperature Pulse Rate 79 84 74 Pulse Rate [ Anterior Throughout] Respiratory 22 18 17 Rate Respiratory Rate [Anterior Throughout] Blood Pressure 125/63 125/63 132/68 O2 Sat by Pulse Oximetry O2 Sat by Pulse Oximetry [ Changed] 08/04/17 08/04/17 08/04/17 14:31 14:40 14:51 Temperature Pulse Rate 81 81 85 Pulse Rate [ Anterior Throughout] Respiratory 28 H 16 24 Rate Respiratory Rate [Anterior Throughout] Blood Pressure 128/71 128/71 128/71 O2 Sat by Pulse Oximetry O2 Sat by Pulse Oximetry [ Changed] 08/04/17 08/04/17 08/04/17 15:01 15:07 15:10 Temperature Pulse Rate 76 76 Pulse Rate [ 75 Anterior Throughout] Respiratory 13 15 Rate Respiratory 19 Rate [Anterior Throughout] Blood Pressure 128/71 O2 Sat by Pulse 97 Oximetry O2 Sat by Pulse Oximetry [ Changed] 08/04/17 08/04/17 08/04/17 15:11 15:20 15:21 Temperature Pulse Rate 77 65 Pulse Rate [ 68 Anterior Throughout] Respiratory 16 13 Rate Respiratory 16 Rate [Anterior Throughout] Blood Pressure 128/71 128/71 O2 Sat by Pulse 100 100 Oximetry O2 Sat by Pulse 100 Oximetry [ Changed] 08/04/17 08/04/17 08/04/17 15:31 15:32 15:41 Temperature Pulse Rate 83 77 Pulse Rate [ Anterior Throughout] Respiratory 30 H 28 H Rate Respiratory Rate [Anterior Throughout] Blood Pressure 147/75 147/75 O2 Sat by Pulse 100 99 98 Oximetry O2 Sat by Pulse Oximetry [ Changed] 08/04/17 08/04/17 08/04/17 15:51 15:58 16:00 Temperature 98.2 F Pulse Rate 72 Pulse Rate [ Anterior Throughout] Respiratory 26 H Rate Respiratory Rate [Anterior Throughout] Blood Pressure 150/75 O2 Sat by Pulse 98 98 Oximetry O2 Sat by Pulse Oximetry [ Changed] 08/04/17 08/04/17 08/04/17 16:01 16:11 16:21 Temperature Pulse Rate 71 69 69 Pulse Rate [ Anterior Throughout] Respiratory 35 H 34 H 35 H Rate Respiratory Rate [Anterior Throughout] Blood Pressure 141/74 141/74 142/77 O2 Sat by Pulse 100 98 99 Oximetry O2 Sat by Pulse Oximetry [ Changed] 08/04/17 08/04/17 08/04/17 16:31 16:41 16:51 Temperature Pulse Rate 65 87 98 H Pulse Rate [ Anterior Throughout] Respiratory 33 H 26 H 29 H Rate Respiratory Rate [Anterior Throughout] Blood Pressure 143/75 143/75 152/65 O2 Sat by Pulse 99 100 95 Oximetry O2 Sat by Pulse Oximetry [ Changed] 08/04/17 08/04/17 08/04/17 17:01 17:11 17:21 Temperature Pulse Rate 97 H 97 H 94 H Pulse Rate [ Anterior Throughout] Respiratory 33 H 11 L 31 H Rate Respiratory Rate [Anterior Throughout] Blood Pressure 152/65 152/65 71/40 O2 Sat by Pulse 96 96 96 Oximetry O2 Sat by Pulse Oximetry [ Changed] 08/04/17 08/04/17 08/04/17 17:30 17:41 17:51 Temperature Pulse Rate 91 H 80 73 Pulse Rate [ Anterior Throughout] Respiratory 18 29 H 26 H Rate Respiratory Rate [Anterior Throughout] Blood Pressure 81/48 81/48 115/61 O2 Sat by Pulse 97 100 100 Oximetry O2 Sat by Pulse Oximetry [ Changed] 08/04/17 08/04/17 08/04/17 18:01 18:11 18:21 Temperature Pulse Rate 78 78 73 Pulse Rate [ Anterior Throughout] Respiratory 28 H 28 H 28 H Rate Respiratory Rate [Anterior Throughout] Blood Pressure 111/59 111/59 106/67 O2 Sat by Pulse 100 100 100 Oximetry O2 Sat by Pulse Oximetry [ Changed] 08/04/17 08/04/17 08/04/17 18:31 18:41 18:51 Temperature Pulse Rate 72 74 70 Pulse Rate [ Anterior Throughout] Respiratory 28 H 32 H 19 Rate Respiratory Rate [Anterior Throughout] Blood Pressure 105/60 105/60 118/61 O2 Sat by Pulse 100 100 100 Oximetry O2 Sat by Pulse Oximetry [ Changed] 08/04/17 08/04/17 08/04/17 19:01 19:11 19:21 Temperature Pulse Rate 75 83 82 Pulse Rate [ Anterior Throughout] Respiratory 28 H 22 26 H Rate Respiratory Rate [Anterior Throughout] Blood Pressure 111/57 111/57 130/72 O2 Sat by Pulse 100 100 100 Oximetry O2 Sat by Pulse Oximetry [ Changed] 08/04/17 08/04/17 08/04/17 19:31 19:41 19:51 Temperature Pulse Rate 84 81 81 Pulse Rate [ Anterior Throughout] Respiratory 24 24 27 H Rate Respiratory Rate [Anterior Throughout] Blood Pressure 114/59 114/59 124/69 O2 Sat by Pulse 100 100 100 Oximetry O2 Sat by Pulse Oximetry [ Changed] 08/04/17 08/04/17 08/04/17 19:59 20:00 20:11 Temperature 98.9 F Pulse Rate 85 83 Pulse Rate [ 70 Anterior Throughout] Respiratory 25 H 27 H Rate Respiratory 18 Rate [Anterior Throughout] Blood Pressure 129/72 129/72 O2 Sat by Pulse 99 100 100 Oximetry O2 Sat by Pulse Oximetry [ Changed] 08/04/17 20:33 Temperature Pulse Rate 87 Pulse Rate [ Anterior Throughout] Respiratory 32 H Rate Respiratory Rate [Anterior Throughout] Blood Pressure O2 Sat by Pulse 100 Oximetry O2 Sat by Pulse Oximetry [ Changed] General appearance: Present: mild distress, well-nourished - EENT Eyes: PERRL, EOM intact ENT: hearing intact, clear oral mucosa Ears: bilateral: normal - Neck Neck: supple, normal ROM - Respiratory Respiratory: bilateral: other (remains on the vent.) - Breasts Breasts: deferred - Cardiovascular Rhythm: regular Heart Sounds: Present: S1 & S2. Absent: gallop, rub Extremities: pulses intact, No edema, normal color, Full ROM - Gastrointestinal General gastrointestinal: Present: soft, non-tender, non-distended, normal bowel sounds - Genitourinary Female genitourinary: deferred - Integumentary Integumentary: clear, warm, dry - Musculoskeletal Musculoskeletal: 1, strength equal bilaterally - Psychiatric Psychiatric: appropriate mood/affect - Labs CBC & Chem 7: 08/04/17 03:53 08/04/17 03:53 Labs: Abnormal lab results 08/03/17 08/03/17 08/04/17 Range/Units 08:03 23:59 03:52 MCV (79-97) fl MCH (28-32) pg RDW (13.2-15.2) % Lymph % (Auto) (13.4-35.0) % Seg Neutrophils % (40.0-70.0) % PT (12.2-14.9) Sec. POC ABG pH 7.488 H (7.35-7.45) POC ABG pCO2 33.3 L (35-45) POC ABG pO2 111 H (80-105) Carbon Dioxide (22-30) mmol/L Creatinine (0.7-1.2) mg/dL Glucose (65-100) mg/dL POC Glucose 162 H (70-105) Calcium (8.4-10.2) mg/dL Total Protein (6.3-8.2) g/dL Albumin (3.9-5) g/dL Crossmatch See Detail 08/04/17 08/04/17 08/04/17 Range/Units 03:53 03:53 05:48 MCV 76 L (79-97) fl MCH 26 L (28-32) pg RDW 19.4 H (13.2-15.2) % Lymph % (Auto) 12.8 L (13.4-35.0) % Seg Neutrophils % 79.1 H (40.0-70.0) % PT (12.2-14.9) Sec. POC ABG pH (7.35-7.45) POC ABG pCO2 (35-45) POC ABG pO2 (80-105) Carbon Dioxide 21 L (22-30) mmol/L Creatinine 0.3 L (0.7-1.2) mg/dL Glucose 146 H (65-100) mg/dL POC Glucose 137 H (70-105) Calcium 7.6 L (8.4-10.2) mg/dL Total Protein 5.1 L (6.3-8.2) g/dL Albumin 2.2 L (3.9-5) g/dL Crossmatch 08/04/17 08/04/17 08/04/17 Range/Units 10:07 11:23 18:01 MCV (79-97) fl MCH (28-32) pg RDW (13.2-15.2) % Lymph % (Auto) (13.4-35.0) % Seg Neutrophils % (40.0-70.0) % PT 15.1 H (12.2-14.9) Sec. POC ABG pH (7.35-7.45) POC ABG pCO2 (35-45) POC ABG pO2 (80-105) Carbon Dioxide (22-30) mmol/L Creatinine (0.7-1.2) mg/dL Glucose (65-100) mg/dL POC Glucose 156 H 242 H (70-105) Calcium (8.4-10.2) mg/dL Total Protein (6.3-8.2) g/dL Albumin (3.9-5) g/dL Crossmatch
[2017-08-04] MEDS: LANTUS SUB-Q SCH (22:13)
[2017-08-04] MEDS ORDERED: NACL 0.45% 1000 ML 0 ML IV ONE (22:33)
[2017-08-05] MEDS: HumaLOG SUB-Q SCH ×4 (00:10→17:28)
[2017-08-05 05:00] LABS: Basophils % (Auto) 0.3 % (0.0-1.8); Eosinophils # (Auto) 0.1 K/mm3 (0.0-0.4); Eosinophils % (Auto) 1.3 % (0.0-4.3); Hematocrit 29.5 % (30.3-42.9); Hemoglobin 9.9 gm/dl (10.1-14.3); Lymphocytes # (Auto) 1.2 K/mm3 (1.2-5.4); Lymphocytes % (Auto) 13.5 % (13.4-35.0); Mean Corpuscular HGB Conc 33 % (30-34); Mean Corpuscular Hemoglobin 26 pg (28-32); Mean Corpuscular Volume 79 fl (79-97); Monocytes # (Auto) 0.6 K/mm3 (0.0-0.8); Platelet Count 334 K/mm3 (140-440); Red Blood Count 3.75 M/mm3 (3.65-5.03); Red Cell Distribution Width 19.8 % (13.2-15.2)
[2017-08-05 05:22] LABS: BUN/Creatinine Ratio 27; Blood Urea Nitrogen 8 mg/dL (7-17); Calcium 8.2 mg/dL (8.4-10.2); Hemolysis Index 0
[2017-08-05] MEDS: DUONEB *Not for PRN Use IH SCH ×3 (07:58→19:37)
[2017-08-05] MEDS ORDERED: LEVOPHED DRIP 4 MG/NS 250 ML 4 MG/250 ML BAG IV SCH (10:00)
[2017-08-05] MEDS: PEPCID PO SCH ×2 (10:34→23:21)
[2017-08-05] MEDS: ROBINUL PO SCH ×2 (10:34→23:18)
[2017-08-05] MEDS: PROAMATINE PO SCH ×3 (10:35→19:56)
[2017-08-05] MEDS: SODIUM CHLORIDE FLUSH SYRINGE 10 ML IV SCH ×2 (10:36→23:19)
[2017-08-05 10:51] LABS: INR 1.07 (0.87-1.13)
--- NOTE | 2017-08-05 14:59 | Progress Note ---
Assessment and Plan Imp: 1. LLL HCAP, POA 2. Probable UTI, POA 3. Severe sepsis w/ shock 4. DYLLAN, better 5. Hypernatremia, better 6. Anoxic encephalopathy 7. Hx of Dilated CMP Rec: 1. Wean Levophed to keep MAP > 65; Start Midodrine 5mg TID to facilitate this 2. 2 units of PRBCs given 08/03/17 3. T-piece; leave on indefinitely if tolerates 4. Completed ~ 7 day course of Zosyn vs. Pseudomonas from sputum and probable UTI 5. TFs, supportive, SCDs; stopped IVFs 6. There [facility]; per discussions with nurse last PM, daughter confirmed DNR status verbally; recommend clarifying this with family and having them sign appropriate form No family present; complex decision-making Subjective Date of service: 08/05/17 Principal diagnosis: A/C respiratory failure Interval history: No events. Tolerating Tpiece x 24 hours. Non-verbal. Remains on Levophed. Active Medications Acetaminophen (Tylenol) 650 mg IN Q4H PRN PRN Reason: Pain MILD(1-3)/Fever >100.5/JOLLY Last Admin: 08/01/17 20:11 Dose: 650 mg Albuterol/Ipratropium (Duoneb *Not For Prn Use*) 1 ampul IH TIDRT REPLACED BY [facility] Last Admin: 08/05/17 07:58 Dose: 1 ampul Lipase/Protease/Amylase (Pancreaze Dr 10,500 Unit) 1 each FEEDTUBE PRN PRN PRN Reason: For Clogged Feeding Tube Dextrose (D50w (25gm) Syringe) 50 ml IV PRN PRN PRN Reason: Hypoglycemia Famotidine (Pepcid) 20 mg PO BID REPLACED BY [facility] Last Admin: 08/05/17 10:34 Dose: 20 mg Glycopyrrolate (Robinul) 1 mg PO BID REPLACED BY [facility] Last Admin: 08/05/17 10:34 Dose: 1 mg Norepinephrine (Levophed Drip 4 Mg/Ns 250 Ml) 4 mg in 250 mls @ 7.5 mls/hr IV TITR REPLACED BY [facility]; Protocol Insulin Glargine (Lantus) 10 units SUB-Q QHS REPLACED BY [facility] Last Admin: 08/04/17 22:13 Dose: 10 units Insulin Human Lispro (Humalog) 0 unit SUB-Q Q6HR REPLACED BY [facility]; Protocol Last Admin: 08/05/17 13:46 Dose: 4 unit Midodrine (Proamatine) 5 mg PO TID REPLACED BY [facility] Last Admin: 08/05/17 13:46 Dose: 5 mg Ondansetron HCl (Zofran) 4 mg IV Q8H PRN PRN Reason: Nausea And Vomiting Simple Syrup (Simple Syrup) 15 ml FEEDTUBE PRN PRN PRN Reason: Hypoglycemia Simple Syrup (Simple Syrup) 30 ml FEEDTUBE PRN PRN PRN Reason: Hypoglycemia Sodium Bicarbonate (Sodium Bicarbonate) 325 mg FEEDTUBE PRN PRN PRN Reason: For Clogged Feeding Tube Sodium Chloride (Sodium Chloride Flush Syringe 10 Ml) 10 ml IV BID REPLACED BY [facility] Last Admin: 08/05/17 10:36 Dose: 10 ml Sodium Chloride (Sodium Chloride Flush Syringe 10 Ml) 10 ml IV PRN PRN PRN Reason: LINE FLUSH Objective Vital Signs - 12hr 08/05/17 08/05/17 08/05/17 03:00 03:11 03:21 Temperature Pulse Rate 78 78 78 Pulse Rate [ Anterior Throughout] Respiratory 36 H 34 H 34 H Rate Respiratory Rate [Anterior Throughout] Blood Pressure 107/54 107/54 109/50 O2 Sat by Pulse 99 100 99 Oximetry 08/05/17 08/05/17 08/05/17 03:31 03:41 03:51 Temperature Pulse Rate 79 79 76 Pulse Rate [ Anterior Throughout] Respiratory 37 H 30 H 33 H Rate Respiratory Rate [Anterior Throughout] Blood Pressure 109/54 109/54 116/56 O2 Sat by Pulse 99 100 99 Oximetry 08/05/17 08/05/17 08/05/17 04:00 04:11 04:21 Temperature 99.0 F Pulse Rate 88 79 85 Pulse Rate [ Anterior Throughout] Respiratory 37 H 38 H 33 H Rate Respiratory Rate [Anterior Throughout] Blood Pressure 127/68 127/68 108/49 O2 Sat by Pulse 100 99 98 Oximetry 08/05/17 08/05/17 08/05/17 04:31 04:36 04:41 Temperature 99.1 F Pulse Rate 82 79 Pulse Rate [ Anterior Throughout] Respiratory 25 H 38 H Rate Respiratory Rate [Anterior Throughout] Blood Pressure 110/57 110/57 O2 Sat by Pulse 100 98 Oximetry 08/05/17 08/05/17 08/05/17 04:51 05:00 05:11 Temperature Pulse Rate 80 79 83 Pulse Rate [ Anterior Throughout] Respiratory 34 H 37 H 20 Rate Respiratory Rate [Anterior Throughout] Blood Pressure 111/55 116/54 116/54 O2 Sat by Pulse 98 99 97 Oximetry 08/05/17 08/05/17 08/05/17 05:21 05:31 05:41 Temperature Pulse Rate 103 H 87 87 Pulse Rate [ Anterior Throughout] Respiratory 25 H 13 22 Rate Respiratory Rate [Anterior Throughout] Blood Pressure 137/69 129/71 129/71 O2 Sat by Pulse 97 98 98 Oximetry 08/05/17 08/05/17 08/05/17 05:51 06:00 06:11 Temperature Pulse Rate 77 78 83 Pulse Rate [ Anterior Throughout] Respiratory 30 H 28 H 30 H Rate Respiratory Rate [Anterior Throughout] Blood Pressure 121/64 130/69 130/69 O2 Sat by Pulse 99 99 99 Oximetry 08/05/17 08/05/17 08/05/17 06:21 06:31 06:41 Temperature Pulse Rate 79 92 H 84 Pulse Rate [ Anterior Throughout] Respiratory 31 H 45 H 32 H Rate Respiratory Rate [Anterior Throughout] Blood Pressure 127/79 127/78 127/78 O2 Sat by Pulse 99 99 96 Oximetry 08/05/17 08/05/17 08/05/17 06:51 07:00 07:11 Temperature Pulse Rate 84 86 87 Pulse Rate [ Anterior Throughout] Respiratory 40 H 38 H 34 H Rate Respiratory Rate [Anterior Throughout] Blood Pressure 118/56 125/66 125/66 O2 Sat by Pulse 98 97 98 Oximetry 08/05/17 08/05/17 08/05/17 07:21 07:31 07:41 Temperature Pulse Rate 86 78 80 Pulse Rate [ Anterior Throughout] Respiratory 36 H 32 H 29 H Rate Respiratory Rate [Anterior Throughout] Blood Pressure 120/70 114/59 114/59 O2 Sat by Pulse 98 99 99 Oximetry 08/05/17 08/05/17 08/05/17 07:51 08:00 08:01 Temperature 98.2 F Pulse Rate 88 97 H Pulse Rate [ 76 Anterior Throughout] Respiratory 17 18 Rate Respiratory 32 H Rate [Anterior Throughout] Blood Pressure 127/104 127/104 O2 Sat by Pulse 99 100 Oximetry 03/21/18 03/21/18 08:11 08:20 Temperature Pulse Rate 84 Pulse Rate [ 82 Anterior Throughout] Respiratory 31 H Rate Respiratory 28 H Rate [Anterior Throughout] Blood Pressure 95/55 O2 Sat by Pulse 99 Oximetry Constitutional: no acute distress Eyes: non-icteric ENT: oropharynx dry Neck: supple, other (tracheostomy present) Effort: normal Ascultation: Bilateral: other (coarse BS) Cardiovascular: regular rate and rhythm (no mrg) Gastrointestinal: normoactive bowel sounds, soft, non-tender, non-distended Integumentary: normal Extremities: no cyanosis, other (contraction deformities present. Edema present.) Neurologic: other (moving more when stimulated, nothing purposeful) Psychiatric: other (unable to assess) CBC and BMP: 08/05/17 04:00 08/05/17 04:00 ABG, PT/INR, D-dimer: ABG POC ABG pH 7.459 (7.35-7.45) H 08/05/17 04:13 ABG pH 7.327 pH Units (7.350-7.450) L 07/29/17 01:41 POC ABG pCO2 36.3 (35-45) 08/05/17 04:13 ABG pCO2 TNR 07/29/17 01:41 POC ABG pO2 105 (80-105) 08/05/17 04:13 ABG pO2 TNR 07/29/17 01:41 POC ABG HCO3 25.8 08/05/17 04:13 POC ABG Total CO2 27 08/05/17 04:13 POC ABG O2 Sat 98 08/05/17 04:13 ABG O2 Saturation TNR 07/29/17 01:41 PT/INR, D-dimer PT 14.5 Sec. (12.2-14.9) 08/05/17 10:22 INR 1.07 (0.87-1.13) 08/05/17 10:22 D-Dimer 1885.58 ng/mlDDU (0-234) H 07/30/17 16:55 Abnormal lab findings: Abnormal Labs 07/29/17 07/29/17 07/29/17 01:41 01:41 01:41 WBC 21.0 H RBC Hgb 9.7 L Hct MCV MCH 24 L RDW 19.0 H Lymph % (Auto) [place] % (Auto) Seg Neutrophils % Seg Neuts % (Manual) 77.0 H Lymphocytes % (Manual) 4.5 L Nucleated RBC % 1.0 H Seg Neutrophils # Seg Neutrophils # Man 16.2 H Lymphocytes # (Manual) 0.9 L Monocytes # (Manual) PT 54.1 H INR 5.49 H* APTT 55.7 H Fibrinogen D-Dimer POC ABG pH ABG pH POC ABG pCO2 POC ABG pO2 Sodium Potassium Chloride Carbon Dioxide BUN Creatinine Glucose POC Glucose Lactic Acid 9.30 H* Calcium Iron TIBC Total Creatine Kinase Troponin T Total Protein Albumin LDL Cholesterol Direct HDL Cholesterol Vitamin B12 Urine WBC (Auto) Vancomycin Trough Crossmatch 07/29/17 07/29/17 07/29/17 01:41 01:41 02:45 WBC RBC Hgb Hct MCV MCH RDW Lymph % (Auto) [place] % (Auto) Seg Neutrophils % Seg Neuts % (Manual) Lymphocytes % (Manual) Nucleated RBC % Seg Neutrophils # Seg Neutrophils # Man Lymphocytes # (Manual) Monocytes # (Manual) PT INR APTT Fibrinogen D-Dimer POC ABG pH ABG pH 7.327 L POC ABG pCO2 32.9 L POC ABG pO2 74 L Sodium 154 H Potassium Chloride 109.8 H Carbon Dioxide BUN 43 H Creatinine 1.3 H Glucose 682 H* POC Glucose Lactic Acid Calcium Iron TIBC Total Creatine Kinase Troponin T 0.209 H* Total Protein Albumin 2.0 L LDL Cholesterol Direct 14 L HDL Cholesterol 13 L Vitamin B12 Urine WBC (Auto) Vancomycin Trough Crossmatch 07/29/17 07/29/17 07/29/17 03:19 04:11 04:11 WBC RBC Hgb Hct MCV MCH RDW Lymph % (Auto) [place] % (Auto) Seg Neutrophils % Seg Neuts % (Manual) Lymphocytes % (Manual) Nucleated RBC % Seg Neutrophils # Seg Neutrophils # Man Lymphocytes # (Manual) Monocytes # (Manual) PT INR APTT Fibrinogen D-Dimer POC ABG pH ABG pH POC ABG pCO2 POC ABG pO2 Sodium Potassium Chloride Carbon Dioxide BUN Creatinine Glucose POC Glucose Lactic Acid 8.30 H* 7.50 H* Calcium Iron TIBC Total Creatine Kinase Troponin T 0.169 H* Total Protein Albumin LDL Cholesterol Direct HDL Cholesterol Vitamin B12 Urine WBC (Auto) Vancomycin Trough Crossmatch 07/29/17 07/29/17 07/29/17 07:50 07:50 09:46 WBC RBC Hgb Hct MCV MCH RDW Lymph % (Auto) [place] % (Auto) Seg Neutrophils % Seg Neuts % (Manual) Lymphocytes % (Manual) Nucleated RBC % Seg Neutrophils # Seg Neutrophils # Man Lymphocytes # (Manual) Monocytes # (Manual) PT INR APTT Fibrinogen D-Dimer POC ABG pH ABG pH POC ABG pCO2 POC ABG pO2 Sodium Potassium Chloride Carbon Dioxide BUN Creatinine Glucose POC Glucose 380 H Lactic Acid 3.30 H* Calcium Iron TIBC Total Creatine Kinase 172 H Troponin T 0.111 H* D Total Protein Albumin LDL Cholesterol Direct HDL Cholesterol Vitamin B12 Urine WBC (Auto) Vancomycin Trough Crossmatch 07/29/17 07/29/17 07/29/17 10:05 10:05 12:45 WBC RBC Hgb Hct MCV MCH RDW Lymph % (Auto) [place] % (Auto) Seg Neutrophils % Seg Neuts % (Manual) Lymphocytes % (Manual) Nucleated RBC % Seg Neutrophils # Seg Neutrophils # Man Lymphocytes # (Manual) Monocytes # (Manual) PT INR APTT Fibrinogen D-Dimer POC ABG pH ABG pH POC ABG pCO2 POC ABG pO2 Sodium Potassium Chloride Carbon Dioxide BUN Creatinine Glucose POC Glucose 404 H Lactic Acid 2.30 H* Calcium Iron TIBC Total Creatine Kinase 179 H Troponin T 0.093 H Total Protein Albumin LDL Cholesterol Direct HDL Cholesterol Vitamin B12 Urine WBC (Auto) Vancomycin Trough Crossmatch 07/29/17 07/29/17 07/29/17 17:32 19:23 Unknown WBC RBC Hgb Hct MCV MCH RDW Lymph % (Auto) [place] % (Auto) Seg Neutrophils % Seg Neuts % (Manual) Lymphocytes % (Manual) Nucleated RBC % Seg Neutrophils # Seg Neutrophils # Man Lymphocytes # (Manual) Monocytes # (Manual) PT INR APTT Fibrinogen D-Dimer POC ABG pH ABG pH POC ABG pCO2 POC ABG pO2 Sodium 156 H Potassium 2.6 L* D Chloride 119.9 H Carbon Dioxide BUN 25 H Creatinine Glucose 275 H POC Glucose 343 H Lactic Acid Calcium 7.7 L Iron TIBC Total Creatine Kinase Troponin T Total Protein Albumin LDL Cholesterol Direct HDL Cholesterol Vitamin B12 Urine WBC (Auto) 169.0 H Vancomycin Trough Crossmatch 07/30/17 07/30/17 07/30/17 00:02 05:33 05:40 WBC 23.9 H RBC 3.51 L Hgb 8.3 L Hct 26.8 L MCV 77 L MCH 24 L RDW 18.3 H Lymph % (Auto) [place] % (Auto) Seg Neutrophils % Seg Neuts % (Manual) 84.0 H Lymphocytes % (Manual) 7.0 L Nucleated RBC % Seg Neutrophils # Seg Neutrophils # Man 20.1 H Lymphocytes # (Manual) Monocytes # (Manual) PT INR APTT Fibrinogen D-Dimer POC ABG pH ABG pH POC ABG pCO2 POC ABG pO2 Sodium Potassium Chloride Carbon Dioxide BUN Creatinine Glucose POC Glucose 186 H 246 H Lactic Acid Calcium Iron TIBC Total Creatine Kinase Troponin T Total Protein Albumin LDL Cholesterol Direct HDL Cholesterol Vitamin B12 Urine WBC (Auto) Vancomycin Trough Crossmatch 07/30/17 07/30/17 07/30/17 05:40 06:13 11:53 WBC RBC Hgb Hct MCV MCH RDW Lymph % (Auto) [place] % (Auto) Seg Neutrophils % Seg Neuts % (Manual) Lymphocytes % (Manual) Nucleated RBC % Seg Neutrophils # Seg Neutrophils # Man Lymphocytes # (Manual) Monocytes # (Manual) PT INR APTT Fibrinogen D-Dimer POC ABG pH 7.461 H ABG pH POC ABG pCO2 33.9 L POC ABG pO2 226 H Sodium 156 H Potassium 3.2 L D Chloride 117.5 H Carbon Dioxide BUN 19 H Creatinine 0.6 L Glucose 212 H POC Glucose 166 H Lactic Acid Calcium 7.8 L Iron TIBC Total Creatine Kinase Troponin T Total Protein Albumin LDL Cholesterol Direct HDL Cholesterol Vitamin B12 Urine WBC (Auto) Vancomycin Trough Crossmatch 07/30/17 07/30/17 07/30/17 15:54 16:52 16:55 WBC 22.9 H RBC 3.29 L Hgb 7.8 L Hct 25.1 L MCV 76 L MCH 24 L RDW 18.2 H Lymph % (Auto) [place] % (Auto) Seg Neutrophils % Seg Neuts % (Manual) 89.0 H Lymphocytes % (Manual) 7.0 L Nucleated RBC % Seg Neutrophils # Seg Neutrophils # Man 20.4 H Lymphocytes # (Manual) Monocytes # (Manual) 0.9 H PT INR APTT Fibrinogen D-Dimer POC ABG pH ABG pH POC ABG pCO2 POC ABG pO2 Sodium 154 H Potassium 3.5 L Chloride 122.1 H Carbon Dioxide BUN Creatinine 0.5 L Glucose 180 H POC Glucose Lactic Acid Calcium 7.6 L Iron TIBC Total Creatine Kinase Troponin T Total Protein Albumin LDL Cholesterol Direct HDL Cholesterol Vitamin B12 Urine WBC (Auto) Vancomycin Trough 29.7 H Crossmatch 07/30/17 07/30/17 07/30/17 16:55 17:06 21:00 WBC RBC Hgb Hct MCV MCH RDW Lymph % (Auto) [place] % (Auto) Seg Neutrophils % Seg Neuts % (Manual) Lymphocytes % (Manual) Nucleated RBC % Seg Neutrophils # Seg Neutrophils # Man Lymphocytes # (Manual) Monocytes # (Manual) PT 44.7 H INR 4.33 H APTT 62.8 H* Fibrinogen 651 H D-Dimer 1885.58 H POC ABG pH ABG pH POC ABG pCO2 POC ABG pO2 Sodium 150 H Potassium 3.2 L Chloride 114.3 H Carbon Dioxide BUN Creatinine 0.5 L Glucose 167 H POC Glucose 213 H Lactic Acid Calcium 7.7 L Iron TIBC Total Creatine Kinase Troponin T Total Protein Albumin LDL Cholesterol Direct HDL Cholesterol Vitamin B12 Urine WBC (Auto) Vancomycin Trough Crossmatch 07/30/17 07/31/17 07/31/17 Unknown 00:29 04:00 WBC RBC Hgb Hct MCV MCH RDW Lymph % (Auto) [place] % (Auto) Seg Neutrophils % Seg Neuts % (Manual) Lymphocytes % (Manual) Nucleated RBC % Seg Neutrophils # Seg Neutrophils # Man Lymphocytes # (Manual) Monocytes # (Manual) PT 57.1 H 33.9 H INR 5.87 H* 3.08 H APTT 53.6 H Fibrinogen D-Dimer POC ABG pH ABG pH POC ABG pCO2 POC ABG pO2 Sodium Potassium Chloride Carbon Dioxide BUN Creatinine Glucose POC Glucose 198 H Lactic Acid Calcium Iron TIBC Total Creatine Kinase Troponin T Total Protein Albumin LDL Cholesterol Direct HDL Cholesterol Vitamin B12 Urine WBC (Auto) Vancomycin Trough Crossmatch 07/31/17 07/31/17 07/31/17 04:00 04:00 05:51 WBC 17.2 H RBC 3.14 L Hgb 7.5 L Hct 23.9 L MCV 76 L MCH 24 L RDW 18.3 H Lymph % (Auto) 9.1 L [place] % (Auto) Seg Neutrophils % 88.1 H Seg Neuts % (Manual) Lymphocytes % (Manual) Nucleated RBC % Seg Neutrophils # 15.2 H Seg Neutrophils # Man Lymphocytes # (Manual) Monocytes # (Manual) PT INR APTT Fibrinogen D-Dimer POC ABG pH 7.538 H ABG pH POC ABG pCO2 25.6 L POC ABG pO2 118 H Sodium 147 H Potassium Chloride 113.9 H Carbon Dioxide BUN Creatinine 0.4 L Glucose 175 H POC Glucose Lactic Acid Calcium 7.6 L Iron TIBC Total Creatine Kinase Troponin T Total Protein Albumin LDL Cholesterol Direct HDL Cholesterol Vitamin B12 Urine WBC (Auto) Vancomycin Trough Crossmatch 07/31/17 07/31/17 07/31/17 05:51 10:45 11:25 WBC RBC Hgb Hct MCV MCH RDW Lymph % (Auto) [place] % (Auto) Seg Neutrophils % Seg Neuts % (Manual) Lymphocytes % (Manual) Nucleated RBC % Seg Neutrophils # Seg Neutrophils # Man Lymphocytes # (Manual) Monocytes # (Manual) PT INR APTT Fibrinogen D-Dimer POC ABG pH ABG pH POC ABG pCO2 POC ABG pO2 Sodium Potassium 3.3 L Chloride 108.4 H Carbon Dioxide BUN Creatinine 0.4 L Glucose 139 H POC Glucose 176 H 147 H Lactic Acid Calcium 7.6 L Iron TIBC Total Creatine Kinase Troponin T Total Protein Albumin LDL Cholesterol Direct HDL Cholesterol Vitamin B12 Urine WBC (Auto) Vancomycin Trough Crossmatch 07/31/17 08/01/17 08/01/17 17:46 00:01 05:07 WBC RBC Hgb Hct MCV MCH RDW Lymph % (Auto) [place] % (Auto) Seg Neutrophils % Seg Neuts % (Manual) Lymphocytes % (Manual) Nucleated RBC % Seg Neutrophils # Seg Neutrophils # Man Lymphocytes # (Manual) Monocytes # (Manual) PT INR APTT Fibrinogen D-Dimer POC ABG pH ABG pH POC ABG pCO2 POC ABG pO2 Sodium Potassium Chloride Carbon Dioxide BUN Creatinine Glucose POC Glucose 222 H 240 H 195 H Lactic Acid Calcium Iron TIBC Total Creatine Kinase Troponin T Total Protein Albumin LDL Cholesterol Direct HDL Cholesterol Vitamin B12 Urine WBC (Auto) Vancomycin Trough Crossmatch 08/01/17 08/01/17 08/01/17 05:46 06:38 06:38 WBC 11.7 H RBC 3.00 L Hgb 7.1 L Hct 22.6 L MCV 75 L MCH 24 L RDW 18.4 H Lymph % (Auto) 12.8 L [place] % (Auto) Seg Neutrophils % 82.5 H Seg Neuts % (Manual) Lymphocytes % (Manual) Nucleated RBC % Seg Neutrophils # 9.7 H Seg Neutrophils # Man Lymphocytes # (Manual) Monocytes # (Manual) PT INR APTT Fibrinogen D-Dimer POC ABG pH 7.491 H ABG pH POC ABG pCO2 26.6 L POC ABG pO2 Sodium Potassium Chloride Carbon Dioxide BUN Creatinine 0.4 L Glucose 191 H POC Glucose Lactic Acid Calcium 7.7 L Iron TIBC Total Creatine Kinase Troponin T Total Protein Albumin LDL Cholesterol Direct HDL Cholesterol Vitamin B12 Urine WBC (Auto) Vancomycin Trough Crossmatch 08/01/17 08/01/17 08/01/17 11:47 17:40 17:40 WBC RBC Hgb Hct MCV MCH RDW Lymph % (Auto) [place] % (Auto) Seg Neutrophils % Seg Neuts % (Manual) Lymphocytes % (Manual) Nucleated RBC % Seg Neutrophils # Seg Neutrophils # Man Lymphocytes # (Manual) Monocytes # (Manual) PT 20.4 H INR 1.64 H APTT Fibrinogen D-Dimer POC ABG pH ABG pH POC ABG pCO2 POC ABG pO2 Sodium Potassium Chloride Carbon Dioxide BUN Creatinine Glucose POC Glucose 289 H Lactic Acid Calcium Iron 17 L TIBC 103 L Total Creatine Kinase Troponin T Total Protein Albumin LDL Cholesterol Direct HDL Cholesterol Vitamin B12 Urine WBC (Auto) Vancomycin Trough Crossmatch 08/01/17 08/01/17 08/01/17 17:40 17:43 23:48 WBC RBC Hgb Hct MCV MCH RDW Lymph % (Auto) [place] % (Auto) Seg Neutrophils % Seg Neuts % (Manual) Lymphocytes % (Manual) Nucleated RBC % Seg Neutrophils # Seg Neutrophils # Man Lymphocytes # (Manual) Monocytes # (Manual) PT INR APTT Fibrinogen D-Dimer POC ABG pH ABG pH POC ABG pCO2 POC ABG pO2 Sodium Potassium Chloride Carbon Dioxide BUN Creatinine Glucose POC Glucose 254 H 248 H Lactic Acid Calcium Iron TIBC Total Creatine Kinase Troponin T Total Protein Albumin LDL Cholesterol Direct HDL Cholesterol Vitamin B12 1830 H Urine WBC (Auto) Vancomycin Trough Crossmatch 08/02/17 08/02/17 08/02/17 03:56 04:00 04:00 WBC 12.7 H RBC 3.04 L Hgb 7.2 L Hct 22.8 L MCV 75 L MCH 24 L RDW 18.0 H Lymph % (Auto) 13.1 L [place] % (Auto) Seg Neutrophils % 81.5 H Seg Neuts % (Manual) Lymphocytes % (Manual) Nucleated RBC % Seg Neutrophils # 10.3 H Seg Neutrophils # Man Lymphocytes # (Manual) Monocytes # (Manual) PT INR APTT Fibrinogen D-Dimer POC ABG pH 7.537 H ABG pH POC ABG pCO2 28.4 L POC ABG pO2 109 H Sodium Potassium 3.0 L Chloride 109.0 H Carbon Dioxide 20 L BUN 6 L Creatinine 0.3 L Glucose 196 H POC Glucose Lactic Acid Calcium 6.3 L D Iron TIBC Total Creatine Kinase Troponin T Total Protein Albumin LDL Cholesterol Direct HDL Cholesterol Vitamin B12 Urine WBC (Auto) Vancomycin Trough Crossmatch 08/02/17 08/02/17 08/02/17 05:20 10:00 12:16 WBC RBC Hgb Hct MCV MCH RDW Lymph % (Auto) [place] % (Auto) Seg Neutrophils % Seg Neuts % (Manual) Lymphocytes % (Manual) Nucleated RBC % Seg Neutrophils # Seg Neutrophils # Man Lymphocytes # (Manual) Monocytes # (Manual) PT 18.6 H INR 1.46 H APTT Fibrinogen D-Dimer POC ABG pH ABG pH POC ABG pCO2 POC ABG pO2 Sodium Potassium Chloride Carbon Dioxide BUN Creatinine Glucose POC Glucose 295 H 296 H Lactic Acid Calcium Iron TIBC Total Creatine Kinase Troponin T Total Protein Albumin LDL Cholesterol Direct HDL Cholesterol Vitamin B12 Urine WBC (Auto) Vancomycin Trough Crossmatch 08/02/17 08/02/17 08/03/17 13:10 18:03 00:19 WBC RBC Hgb Hct MCV MCH RDW Lymph % (Auto) [place] % (Auto) Seg Neutrophils % Seg Neuts % (Manual) Lymphocytes % (Manual) Nucleated RBC % Seg Neutrophils # Seg Neutrophils # Man Lymphocytes # (Manual) Monocytes # (Manual) PT INR APTT Fibrinogen D-Dimer POC ABG pH 7.500 H ABG pH POC ABG pCO2 31.9 L POC ABG pO2 107 H Sodium Potassium Chloride Carbon Dioxide BUN Creatinine Glucose POC Glucose 273 H 244 H Lactic Acid Calcium Iron TIBC Total Creatine Kinase Troponin T Total Protein Albumin LDL Cholesterol Direct HDL Cholesterol Vitamin B12 Urine WBC (Auto) Vancomycin Trough Crossmatch 08/03/17 08/03/17 08/03/17 03:30 03:30 05:14 WBC RBC 2.67 L Hgb 6.5 L Hct 20.2 L MCV 76 L MCH 24 L RDW 18.3 H Lymph % (Auto) [place] % (Auto) 7.4 H Seg Neutrophils % 75.9 H Seg Neuts % (Manual) Lymphocytes % (Manual) Nucleated RBC % Seg Neutrophils # Seg Neutrophils # Man Lymphocytes # (Manual) Monocytes # (Manual) PT INR APTT Fibrinogen D-Dimer POC ABG pH ABG pH POC ABG pCO2 POC ABG pO2 Sodium 135 L Potassium Chloride Carbon Dioxide BUN Creatinine 0.3 L Glucose 207 H POC Glucose 205 H Lactic Acid Calcium 7.5 L D Iron TIBC Total Creatine Kinase Troponin T Total Protein Albumin LDL Cholesterol Direct HDL Cholesterol Vitamin B12 Urine WBC (Auto) Vancomycin Trough Crossmatch 08/03/17 08/03/17 08/03/17 05:14 08:03 12:11 WBC RBC Hgb Hct MCV MCH RDW Lymph % (Auto) [place] % (Auto) Seg Neutrophils % Seg Neuts % (Manual) Lymphocytes % (Manual) Nucleated RBC % Seg Neutrophils # Seg Neutrophils # Man Lymphocytes # (Manual) Monocytes # (Manual) PT INR APTT Fibrinogen D-Dimer POC ABG pH 7.479 H ABG pH POC ABG pCO2 34.5 L POC ABG pO2 141 H Sodium Potassium Chloride Carbon Dioxide BUN Creatinine Glucose POC Glucose 270 H Lactic Acid Calcium Iron TIBC Total Creatine Kinase Troponin T Total Protein Albumin LDL Cholesterol Direct HDL Cholesterol Vitamin B12 Urine WBC (Auto) Vancomycin Trough Crossmatch See Detail 08/03/17 08/03/17 08/04/17 17:27 23:59 03:52 WBC RBC Hgb Hct MCV MCH RDW Lymph % (Auto) [place] % (Auto) Seg Neutrophils % Seg Neuts % (Manual) Lymphocytes % (Manual) Nucleated RBC % Seg Neutrophils # Seg Neutrophils # Man Lymphocytes # (Manual) Monocytes # (Manual) PT INR APTT Fibrinogen D-Dimer POC ABG pH 7.488 H ABG pH POC ABG pCO2 33.3 L POC ABG pO2 111 H Sodium Potassium Chloride Carbon Dioxide BUN Creatinine Glucose POC Glucose 219 H 162 H Lactic Acid Calcium Iron TIBC Total Creatine Kinase Troponin T Total Protein Albumin LDL Cholesterol Direct HDL Cholesterol Vitamin B12 Urine WBC (Auto) Vancomycin Trough Crossmatch 08/04/17 08/04/17 08/04/17 03:53 03:53 05:48 WBC RBC Hgb Hct MCV 76 L MCH 26 L RDW 19.4 H Lymph % (Auto) 12.8 L [place] % (Auto) Seg Neutrophils % 79.1 H Seg Neuts % (Manual) Lymphocytes % (Manual) Nucleated RBC % Seg Neutrophils # Seg Neutrophils # Man Lymphocytes # (Manual) Monocytes # (Manual) PT INR APTT Fibrinogen D-Dimer POC ABG pH ABG pH POC ABG pCO2 POC ABG pO2 Sodium Potassium Chloride Carbon Dioxide 21 L BUN Creatinine 0.3 L Glucose 146 H POC Glucose 137 H Lactic Acid Calcium 7.6 L Iron TIBC Total Creatine Kinase Troponin T Total Protein 5.1 L Albumin 2.2 L LDL Cholesterol Direct HDL Cholesterol Vitamin B12 Urine WBC (Auto) Vancomycin Trough Crossmatch 08/04/17 08/04/17 08/04/17 10:07 11:23 18:01 WBC RBC Hgb Hct MCV MCH RDW Lymph % (Auto) [place] % (Auto) Seg Neutrophils % Seg Neuts % (Manual) Lymphocytes % (Manual) Nucleated RBC % Seg Neutrophils # Seg Neutrophils # Man Lymphocytes # (Manual) Monocytes # (Manual) PT 15.1 H INR APTT Fibrinogen D-Dimer POC ABG pH ABG pH POC ABG pCO2 POC ABG pO2 Sodium Potassium Chloride Carbon Dioxide BUN Creatinine Glucose POC Glucose 156 H 242 H Lactic Acid Calcium Iron TIBC Total Creatine Kinase Troponin T Total Protein Albumin LDL Cholesterol Direct HDL Cholesterol Vitamin B12 Urine WBC (Auto) Vancomycin Trough Crossmatch 08/04/17 08/05/17 08/05/17 23:56 04:00 04:00 WBC RBC Hgb 9.9 L Hct 29.5 L MCV MCH 26 L RDW 19.8 H Lymph % (Auto) [place] % (Auto) Seg Neutrophils % 77.9 H Seg Neuts % (Manual) Lymphocytes % (Manual) Nucleated RBC % Seg Neutrophils # Seg Neutrophils # Man Lymphocytes # (Manual) Monocytes # (Manual) PT INR APTT Fibrinogen D-Dimer POC ABG pH ABG pH POC ABG pCO2 POC ABG pO2 Sodium Potassium Chloride Carbon Dioxide BUN Creatinine 0.3 L Glucose 186 H POC Glucose 201 H Lactic Acid Calcium 8.2 L Iron TIBC Total Creatine Kinase Troponin T Total Protein Albumin LDL Cholesterol Direct HDL Cholesterol Vitamin B12 Urine WBC (Auto) Vancomycin Trough Crossmatch 08/05/17 08/05/17 08/05/17 04:13 05:19 13:46 WBC RBC Hgb Hct MCV MCH RDW Lymph % (Auto) [place] % (Auto) Seg Neutrophils % Seg Neuts % (Manual) Lymphocytes % (Manual) Nucleated RBC % Seg Neutrophils # Seg Neutrophils # Man Lymphocytes # (Manual) Monocytes # (Manual) PT INR APTT Fibrinogen D-Dimer POC ABG pH 7.459 H ABG pH POC ABG pCO2 POC ABG pO2 Sodium Potassium Chloride Carbon Dioxide BUN Creatinine Glucose POC Glucose 193 H 238 H Lactic Acid Calcium Iron TIBC Total Creatine Kinase Troponin T Total Protein Albumin LDL Cholesterol Direct HDL Cholesterol Vitamin B12 Urine WBC (Auto) Vancomycin Trough Crossmatch Chest x-ray: report reviewed, image reviewed
--- NOTE | 2017-08-05 21:15 | Progress Note ---
Assessment and Plan - Patient Problems (1) Pneumonia Current Visit: Yes Status: Acute Plan to address problem: follow pulmonary. (2) Left foot infection Current Visit: Yes Status: Acute Plan to address problem: Follow vascular. (3) Feeding by G-tube Current Visit: Yes Status: Acute Plan to address problem: tube care/management. (4) Coagulopathy Current Visit: Yes Status: Acute Plan to address problem: Monitor coags, and adjust as needed. Subjective Date of service: 08/05/17 Principal diagnosis: A/C respiratory failure Interval history: Patient seen/examined, resting in bed, VSS, afebrile. She desarts to the 60% when on her left side, and 100% on her right side. She has the PNA on the left side.labs reviewed, INR 1.46 Patient seen/examined, resting in bed, alert, 2nd unit of PRBC about to begin. VSS, afebrile, her Daughter at the bed side, case d/w her. Patient seen/examined, resting in bed, records/labs reviewed., and stable., still on the vent.will continue to follow you. Patient seen/examined, record reviewed, case d/w her daughter at the bed side. Objective - Constitutional Vitals: Vital Signs - 12hr 08/05/17 08/05/17 08/05/17 09:21 09:30 09:35 Temperature Pulse Rate 76 75 Pulse Rate [ Anterior Throughout] Respiratory 32 H 33 H Rate Respiratory Rate [Anterior Throughout] Blood Pressure 93/51 87/46 O2 Sat by Pulse 100 99 100 Oximetry O2 Sat by Pulse 100 Oximetry [ Changed] 08/05/17 08/05/17 08/05/17 09:40 09:51 10:00 Temperature Pulse Rate 72 69 83 Pulse Rate [ Anterior Throughout] Respiratory 29 H 30 H Rate Respiratory Rate [Anterior Throughout] Blood Pressure 87/46 92/52 O2 Sat by Pulse 99 100 Oximetry O2 Sat by Pulse Oximetry [ Changed] 08/05/17 08/05/17 08/05/17 10:01 10:11 10:21 Temperature Pulse Rate 83 81 74 Pulse Rate [ Anterior Throughout] Respiratory 20 25 H 25 H Rate Respiratory Rate [Anterior Throughout] Blood Pressure 111/63 111/63 111/57 O2 Sat by Pulse 100 100 100 Oximetry O2 Sat by Pulse Oximetry [ Changed] 08/05/17 08/05/17 08/05/17 10:30 10:41 10:51 Temperature Pulse Rate 74 72 70 Pulse Rate [ Anterior Throughout] Respiratory 23 25 H 28 H Rate Respiratory Rate [Anterior Throughout] Blood Pressure 120/60 120/60 125/62 O2 Sat by Pulse 100 100 100 Oximetry O2 Sat by Pulse Oximetry [ Changed] 08/05/17 08/05/17 08/05/17 11:01 11:11 11:21 Temperature Pulse Rate 70 69 65 Pulse Rate [ Anterior Throughout] Respiratory 28 H 30 H 25 H Rate Respiratory Rate [Anterior Throughout] Blood Pressure 118/57 118/57 117/61 O2 Sat by Pulse 100 100 100 Oximetry O2 Sat by Pulse Oximetry [ Changed] 08/05/17 08/05/17 08/05/17 11:31 11:41 11:51 Temperature Pulse Rate 63 72 87 Pulse Rate [ Anterior Throughout] Respiratory 23 24 27 H Rate Respiratory Rate [Anterior Throughout] Blood Pressure 114/60 114/60 133/67 O2 Sat by Pulse 100 100 100 Oximetry O2 Sat by Pulse Oximetry [ Changed] 08/05/17 08/05/17 08/05/17 12:00 12:01 12:11 Temperature 98.8 F Pulse Rate 80 85 Pulse Rate [ Anterior Throughout] Respiratory 21 26 H Rate Respiratory Rate [Anterior Throughout] Blood Pressure 132/61 132/61 O2 Sat by Pulse 100 99 Oximetry O2 Sat by Pulse Oximetry [ Changed] 08/05/17 08/05/17 08/05/17 12:21 12:30 12:41 Temperature Pulse Rate 77 77 73 Pulse Rate [ Anterior Throughout] Respiratory 24 27 H 21 Rate Respiratory Rate [Anterior Throughout] Blood Pressure 127/61 128/66 128/66 O2 Sat by Pulse 99 100 99 Oximetry O2 Sat by Pulse Oximetry [ Changed] 08/05/17 08/05/17 08/05/17 12:51 13:01 13:11 Temperature Pulse Rate 72 70 67 Pulse Rate [ Anterior Throughout] Respiratory 25 H 27 H 30 H Rate Respiratory Rate [Anterior Throughout] Blood Pressure 121/58 115/56 115/56 O2 Sat by Pulse 99 99 98 Oximetry O2 Sat by Pulse Oximetry [ Changed] 08/05/17 08/05/17 08/05/17 13:21 13:30 13:41 Temperature Pulse Rate 67 67 65 Pulse Rate [ Anterior Throughout] Respiratory 30 H 24 23 Rate Respiratory Rate [Anterior Throughout] Blood Pressure 113/56 117/62 117/62 O2 Sat by Pulse 99 100 100 Oximetry O2 Sat by Pulse Oximetry [ Changed] 08/05/17 08/05/17 08/05/17 13:51 14:00 14:01 Temperature Pulse Rate 94 H 80 Pulse Rate [ Anterior Throughout] Respiratory 26 H 28 H 32 H Rate Respiratory Rate [Anterior Throughout] Blood Pressure 117/62 144/78 O2 Sat by Pulse 100 99 Oximetry O2 Sat by Pulse Oximetry [ Changed] 08/05/17 08/05/17 08/05/17 14:11 14:21 14:31 Temperature Pulse Rate 79 67 63 Pulse Rate [ Anterior Throughout] Respiratory 20 30 H 26 H Rate Respiratory Rate [Anterior Throughout] Blood Pressure 144/78 154/73 144/66 O2 Sat by Pulse 100 100 100 Oximetry O2 Sat by Pulse Oximetry [ Changed] 08/05/17 08/05/17 08/05/17 14:41 14:51 15:01 Temperature Pulse Rate 73 76 72 Pulse Rate [ Anterior Throughout] Respiratory 31 H 29 H 30 H Rate Respiratory Rate [Anterior Throughout] Blood Pressure 154/73 153/74 143/69 O2 Sat by Pulse 100 100 100 Oximetry O2 Sat by Pulse Oximetry [ Changed] 08/05/17 08/05/17 08/05/17 15:11 15:20 15:21 Temperature Pulse Rate 72 71 Pulse Rate [ 87 Anterior Throughout] Respiratory 30 H 28 H Rate Respiratory 20 Rate [Anterior Throughout] Blood Pressure 143/69 143/69 O2 Sat by Pulse 99 100 Oximetry O2 Sat by Pulse Oximetry [ Changed] 08/05/17 08/05/17 08/05/17 15:31 15:35 15:41 Temperature Pulse Rate 74 88 Pulse Rate [ 88 Anterior Throughout] Respiratory 28 H 37 H Rate Respiratory 18 Rate [Anterior Throughout] Blood Pressure 141/70 141/70 O2 Sat by Pulse 100 100 Oximetry O2 Sat by Pulse Oximetry [ Changed] 08/05/17 08/05/17 08/05/17 15:51 16:00 16:11 Temperature 98.5 F Pulse Rate 81 75 75 Pulse Rate [ Anterior Throughout] Respiratory 23 16 31 H Rate Respiratory Rate [Anterior Throughout] Blood Pressure 143/69 129/63 129/63 O2 Sat by Pulse 100 100 100 Oximetry O2 Sat by Pulse Oximetry [ Changed] 08/05/17 08/05/17 08/05/17 16:21 16:30 16:41 Temperature Pulse Rate 68 76 67 Pulse Rate [ Anterior Throughout] Respiratory 28 H 26 H 29 H Rate Respiratory Rate [Anterior Throughout] Blood Pressure 134/70 132/65 132/65 O2 Sat by Pulse 100 100 100 Oximetry O2 Sat by Pulse Oximetry [ Changed] 08/05/17 08/05/17 08/05/17 16:51 17:00 17:01 Temperature Pulse Rate 66 66 Pulse Rate [ Anterior Throughout] Respiratory 32 H 30 H Rate Respiratory Rate [Anterior Throughout] Blood Pressure 115/52 109/52 O2 Sat by Pulse 100 100 Oximetry O2 Sat by Pulse 99 Oximetry [ Changed] 08/05/17 08/05/17 08/05/17 17:11 17:24 17:30 Temperature Pulse Rate 79 83 75 Pulse Rate [ Anterior Throughout] Respiratory 30 H 34 H 31 H Rate Respiratory Rate [Anterior Throughout] Blood Pressure 109/52 122/72 O2 Sat by Pulse 100 97 97 Oximetry O2 Sat by Pulse Oximetry [ Changed] 08/05/17 08/05/17 08/05/17 17:40 17:50 18:00 Temperature Pulse Rate 71 73 73 Pulse Rate [ Anterior Throughout] Respiratory 28 H 26 H 29 H Rate Respiratory Rate [Anterior Throughout] Blood Pressure 134/75 124/70 124/71 O2 Sat by Pulse 98 98 99 Oximetry O2 Sat by Pulse Oximetry [ Changed] 08/05/17 08/05/17 08/05/17 18:10 18:20 19:00 Temperature Pulse Rate 74 71 77 Pulse Rate [ Anterior Throughout] Respiratory 30 H 29 H 29 H Rate Respiratory Rate [Anterior Throughout] Blood Pressure 124/71 117/68 105/62 O2 Sat by Pulse 98 99 99 Oximetry O2 Sat by Pulse Oximetry [ Changed] 08/05/17 08/05/17 08/05/17 19:10 19:20 19:30 Temperature Pulse Rate 81 82 78 Pulse Rate [ Anterior Throughout] Respiratory 29 H 27 H 29 H Rate Respiratory Rate [Anterior Throughout] Blood Pressure 105/62 103/61 103/58 O2 Sat by Pulse 100 100 100 Oximetry O2 Sat by Pulse Oximetry [ Changed] 08/05/17 08/05/17 08/05/17 19:38 19:39 19:40 Temperature Pulse Rate 85 Pulse Rate [ 82 Anterior Throughout] Respiratory 34 H Rate Respiratory 28 H Rate [Anterior Throughout] Blood Pressure 103/58 O2 Sat by Pulse 100 100 Oximetry O2 Sat by Pulse Oximetry [ Changed] 08/05/17 08/05/17 08/05/17 19:50 20:00 20:10 Temperature 97.7 F Pulse Rate 84 83 82 Pulse Rate [ Anterior Throughout] Respiratory 32 H 32 H 25 H Rate Respiratory Rate [Anterior Throughout] Blood Pressure 103/62 102/53 102/53 O2 Sat by Pulse 100 100 100 Oximetry O2 Sat by Pulse Oximetry [ Changed] 08/05/17 20:20 Temperature Pulse Rate 84 Pulse Rate [ Anterior Throughout] Respiratory 24 Rate Respiratory Rate [Anterior Throughout] Blood Pressure 98/62 O2 Sat by Pulse 99 Oximetry O2 Sat by Pulse Oximetry [ Changed] General appearance: Present: no acute distress, well-nourished - EENT Eyes: PERRL, EOM intact ENT: hearing intact, clear oral mucosa - Neck Neck: supple, normal ROM - Respiratory Respiratory: bilateral: other (on the vent.) - Breasts Breasts: deferred - Cardiovascular Rhythm: regular Heart Sounds: Present: S1 & S2. Absent: gallop, rub Extremities: pulses intact, No edema, normal color, Full ROM - Gastrointestinal General gastrointestinal: Present: soft, non-tender, non-distended, normal bowel sounds Rectal Exam: deferred - Genitourinary Female genitourinary: deferred - Integumentary Integumentary: clear, warm, dry - Musculoskeletal Musculoskeletal: 1, strength equal bilaterally - Neurologic Neurologic: moves all extremities - Psychiatric Psychiatric: appropriate mood/affect - Labs CBC & Chem 7: 08/05/17 04:00 08/05/17 04:00 Labs: Abnormal lab results 08/04/17 08/05/17 08/05/17 Range/Units 23:56 04:00 04:00 Hgb 9.9 L (10.1-14.3) gm/dl Hct 29.5 L (30.3-42.9) % MCH 26 L (28-32) pg RDW 19.8 H (13.2-15.2) % Seg Neutrophils % 77.9 H (40.0-70.0) % POC ABG pH (7.35-7.45) Creatinine 0.3 L (0.7-1.2) mg/dL Glucose 186 H (65-100) mg/dL POC Glucose 201 H (70-105) Calcium 8.2 L (8.4-10.2) mg/dL 08/05/17 08/05/17 08/05/17 Range/Units 04:13 05:19 13:46 Hgb (10.1-14.3) gm/dl Hct (30.3-42.9) % MCH (28-32) pg RDW (13.2-15.2) % Seg Neutrophils % (40.0-70.0) % POC ABG pH 7.459 H (7.35-7.45) Creatinine (0.7-1.2) mg/dL Glucose (65-100) mg/dL POC Glucose 193 H 238 H (70-105) Calcium (8.4-10.2) mg/dL 08/05/17 Range/Units 17:12 Hgb (10.1-14.3) gm/dl Hct (30.3-42.9) % MCH (28-32) pg RDW (13.2-15.2) % Seg Neutrophils % (40.0-70.0) % POC ABG pH (7.35-7.45) Creatinine (0.7-1.2) mg/dL Glucose (65-100) mg/dL POC Glucose 197 H (70-105) Calcium (8.4-10.2) mg/dL
--- NOTE | 2017-08-05 23:03 | Progress Note ---
Assessment and Plan Assessment and plan: Septic shock - Patient is managed according to sepsis protocol, IV antibiotics, fluids - Patient back on pressors Pneumonia, LLL. POA - continue IV antibiotics - Blood culture no growth so far Respiratory failure on trach -Pulmonary is following - Trach now on Tcollar Anoxic brain injury, patient is on PEG and trach chronically Coumadin toxicity -INR is dropping down - hematology oncology consulted Dr Dickerson, who is her primary care Dr Severe anemia - patient transfused with 2 units of blood pending Post transfusion H/H Acute Cystsis -Complete abx as recommended. History of multiple strokes - Patient is bedbound Dilated CMP Nutrition - Through PEG tubes, GI consult appreciated Disposition - Continue ICU care Family on discussion with Dr Renae wantming patient to remain a DNR The high probability of a clinically significant, sudden or life threatening deterioration of the [cv, neurology] system(s) required my full and direct attention, intervention and personal management. The aggregate critical care time was [34] minutes. This time is in addition to time spent performing reported procedures but includes the following: [x] Data Review and interpretation [x] Patient assessment and monitoring of vital signs [x] Documentation [x] Medication orders and management s Hospitalist Physical - Physical exam Narrative exam: Patient is comatose, on PEG and trach, on Tcollar Vital signs as documented. Head exam is unremarkable. No scleral icterus . Neck is without jugular venous distension, thyromegaly, or carotid bruits. Lungs are clear to auscultation. Cardiac exam reveals regular rate and Rhythm. First and second heart sounds normal. No murmurs, rubs or gallops. Abdominal exam reveals normal bowel sounds, no masses, no organomegaly and no aortic enlargement. Extremities contracted, decubitus ulcer. RN LACTATION CONSULTANT: patient is comatose.opens eys but not following any commands - Constitutional Vitals: Temp Pulse Resp BP Pulse Ox 97.7 F 84 24 98/62 99 08/05/17 20:00 08/05/17 20:20 08/05/17 20:20 08/05/17 20:20 08/05/17 20:20 General appearance: Present: no acute distress, well-nourished Results - Labs CBC & Chem 7: 08/05/17 04:00 08/05/17 04:00 Labs: Laboratory Last Values WBC 8.7 K/mm3 (4.5-11.0) 08/05/17 04:00 RBC 3.75 M/mm3 (3.65-5.03) 08/05/17 04:00 Hgb 9.9 gm/dl (10.1-14.3) L 08/05/17 04:00 Hct 29.5 % (30.3-42.9) L 08/05/17 04:00 MCV 79 fl (79-97) 08/05/17 04:00 MCH 26 pg (28-32) L 08/05/17 04:00 MCHC 33 % (30-34) 08/05/17 04:00 RDW 19.8 % (13.2-15.2) H 08/05/17 04:00 Plt Count 334 K/mm3 (140-440) D 08/05/17 04:00 Lymph % (Auto) 13.5 % (13.4-35.0) 08/05/17 04:00 [place] % (Auto) 7.0 % (0.0-7.3) 08/05/17 04:00 Eos % (Auto) 1.3 % (0.0-4.3) 08/05/17 04:00 Baso % (Auto) 0.3 % (0.0-1.8) 08/05/17 04:00 Lymph # 1.2 K/mm3 (1.2-5.4) 08/05/17 04:00 [place] # 0.6 K/mm3 (0.0-0.8) 08/05/17 04:00 Eos # 0.1 K/mm3 (0.0-0.4) 08/05/17 04:00 Baso # 0.0 K/mm3 (0.0-0.1) 08/05/17 04:00 Add Manual Diff Complete 07/30/17 16:52 Total Counted 100 07/30/17 16:52 Seg Neutrophils % 77.9 % (40.0-70.0) H 08/05/17 04:00 Seg Neuts % (Manual) 89.0 % (40.0-70.0) H 07/30/17 16:52 Band Neutrophils % 0 % 07/30/17 16:52 Lymphocytes % (Manual) 7.0 % (13.4-35.0) L 07/30/17 16:52 Reactive Lymphs % (Man) 0 % 07/30/17 16:52 Monocytes % (Manual) 4.0 % (0.0-7.3) 07/30/17 16:52 Eosinophils % (Manual) 0 % (0.0-4.3) 07/30/17 16:52 Basophils % (Manual) 0 % (0.0-1.8) 07/30/17 16:52 Metamyelocytes % 0 % 07/30/17 16:52 Myelocytes % 0 % 07/30/17 16:52 Promyelocytes % 0 % 07/30/17 16:52 Blast Cells % 0 % 07/30/17 16:52 Nucleated RBC % Not Reportable 07/30/17 16:52 Seg Neutrophils # 6.8 K/mm3 (1.8-7.7) 08/05/17 04:00 Seg Neutrophils # Man 20.4 K/mm3 (1.8-7.7) H 07/30/17 16:52 Band Neutrophils # 0.0 K/mm3 07/30/17 16:52 Lymphocytes # (Manual) 1.6 K/mm3 (1.2-5.4) 07/30/17 16:52 Abs React Lymphs (Man) 0.0 K/mm3 07/30/17 16:52 Monocytes # (Manual) 0.9 K/mm3 (0.0-0.8) H 07/30/17 16:52 Eosinophils # (Manual) 0.0 K/mm3 (0.0-0.4) 07/30/17 16:52 Basophils # (Manual) 0.0 K/mm3 (0.0-0.1) 07/30/17 16:52 Metamyelocytes # 0.0 K/mm3 07/30/17 16:52 Myelocytes # 0.0 K/mm3 07/30/17 16:52 Promyelocytes # 0.0 K/mm3 07/30/17 16:52 Blast Cells # 0.0 K/mm3 07/30/17 16:52 WBC Morphology Not Reportable 07/30/17 16:52 Hypersegmented Neuts Not Reportable 07/30/17 16:52 Hyposegmented Neuts Not Reportable 07/30/17 16:52 Hypogranular Neuts Not Reportable 07/30/17 16:52 Smudge Cells Not Reportable 07/30/17 16:52 Toxic Granulation Not Reportable 07/30/17 16:52 Toxic Vacuolation Not Reportable 07/30/17 16:52 Dohle Bodies Not Reportable 07/30/17 16:52 [place]-Huet Anomaly Not Reportable 07/30/17 16:52 Zach Rods Not Reportable 07/30/17 16:52 Platelet Estimate Consistent w auto 07/30/17 16:52 Clumped Platelets Not Reportable 07/30/17 16:52 Plt Clumps, EDTA Not Reportable 07/30/17 16:52 Large Platelets 1+ 07/30/17 16:52 Giant Platelets Not Reportable 07/30/17 16:52 Platelet Satelliting Not Reportable 07/30/17 16:52 Plt Morphology Comment Not Reportable 07/30/17 16:52 RBC Morphology Not Reportable 07/30/17 16:52 Dimorphic RBCs Not Reportable 07/30/17 16:52 Polychromasia Not Reportable 07/30/17 16:52 Hypochromasia 1+ 07/30/17 16:52 Poikilocytosis 1+ 07/30/17 16:52 Anisocytosis 1+ 07/30/17 16:52 Microcytosis Not Reportable 07/30/17 16:52 Macrocytosis Not Reportable 07/30/17 16:52 Spherocytes Not Reportable 07/30/17 16:52 Pappenheimer Bodies Not Reportable 07/30/17 16:52 Sickle Cells Not Reportable 07/30/17 16:52 Target Cells Not Reportable 07/30/17 16:52 Tear Drop Cells Not Reportable 07/30/17 16:52 Ovalocytes Not Reportable 07/30/17 16:52 Helmet Cells Not Reportable 07/30/17 16:52 [place] Bodies Not Reportable 07/30/17 16:52 [place] Rings Not Reportable 07/30/17 16:52 [place] Cells Not Reportable 07/30/17 16:52 Bite Cells Not Reportable 07/30/17 16:52 Crenated Cell Not Reportable 07/30/17 16:52 Elliptocytes Not Reportable 07/30/17 16:52 Acanthocytes (Spur) Not Reportable 07/30/17 16:52 [place]le[place] Not Reportable 07/30/17 16:52 Hemoglobin C Crystals Not Reportable 07/30/17 16:52 Schistocytes Not Reportable 07/30/17 16:52 Malaria parasites Not Reportable 07/30/17 16:52 He Bodies Not Reportable 07/30/17 16:52 Hem Pathologist Commnt No 07/30/17 16:52 PT 14.5 Sec. (12.2-14.9) 08/05/17 10:22 INR 1.07 (0.87-1.13) 08/05/17 10:22 APTT 53.6 Sec. (24.2-36.6) H 07/31/17 04:00 Fibrinogen 651 mg/dl (211-480) H 07/30/17 16:55 D-Dimer 1885.58 ng/mlDDU (0-234) H 07/30/17 16:55 POC ABG pH 7.459 (7.35-7.45) H 08/05/17 04:13 ABG pH 7.327 pH Units (7.350-7.450) L 07/29/17 01:41 POC ABG pCO2 36.3 (35-45) 08/05/17 04:13 ABG pCO2 TNR 07/29/17 01:41 POC ABG pO2 105 (80-105) 08/05/17 04:13 ABG pO2 TNR 07/29/17 01:41 POC ABG HCO3 25.8 08/05/17 04:13 ABG HCO3 TNR 07/29/17 01:41 POC ABG Total CO2 27 08/05/17 04:13 POC ABG O2 Sat 98 08/05/17 04:13 ABG O2 Saturation TNR 07/29/17 01:41 ABG O2 Content TNR 07/29/17 01:41 POC ABG Base Excess 2 08/05/17 04:13 ABG Base Excess TNR 07/29/17 01:41 ABG Hemoglobin TNR 07/29/17 01:41 ABG Carboxyhemoglobin TNR 07/29/17 01:41 ABG Methemoglobin TNR 07/29/17 01:41 VBG pH 7.327 (7.320-7.420) 07/29/17 01:41 Oxyhemoglobin TNR 07/29/17 01:41 FiO2 28 % 08/05/17 04:13 Sodium 140 mmol/L (137-145) 08/05/17 04:00 Potassium 3.6 mmol/L (3.6-5.0) 08/05/17 04:00 Chloride 104.4 mmol/L (98-107) 08/05/17 04:00 Carbon Dioxide 25 mmol/L (22-30) 08/05/17 04:00 Anion Gap 14 mmol/L 08/05/17 04:00 BUN 8 mg/dL (7-17) 08/05/17 04:00 Creatinine 0.3 mg/dL (0.7-1.2) L 08/05/17 04:00 Estimated GFR > 60 ml/min 08/05/17 04:00 BUN/Creatinine Ratio 27 % 08/05/17 04:00 Glucose 186 mg/dL (65-100) H 08/05/17 04:00 POC Glucose 197 (70-105) H 08/05/17 17:12 Lactic Acid 1.50 mmol/L (0.7-2.0) 07/31/17 10:45 Calcium 8.2 mg/dL (8.4-10.2) L 08/05/17 04:00 Iron 17 ug/dL (37-170) L 08/01/17 17:40 TIBC 103 mcg/dL (250-450) L 08/01/17 17:40 Total Bilirubin 0.40 mg/dL (0.1-1.2) 08/04/17 03:53 AST 29 units/L (5-40) 08/04/17 03:53 ALT 22 units/L (7-56) 08/04/17 03:53 Alkaline Phosphatase 55 units/L (35-129) 08/04/17 03:53 Lactate Dehydrogenase 148 units/L (91-180) 08/01/17 17:40 Total Creatine Kinase 179 units/L (30-135) H 07/29/17 10:05 CK-MB (CK-2) 3.0 ng/mL (0.0-4.0) 07/29/17 10:05 CK-MB (CK-2) Rel Index 1.6 (0-4) 07/29/17 10:05 Troponin T 0.093 ng/mL (0.00-0.029) H 07/29/17 10:05 Total Protein 5.1 g/dL (6.3-8.2) L 08/04/17 03:53 Albumin 2.2 g/dL (3.9-5) L 08/04/17 03:53 Albumin/Globulin Ratio 0.8 % 08/04/17 03:53 Triglycerides 115 mg/dL (2-149) 07/29/17 01:41 Cholesterol 50 mg/dL (50-199) 07/29/17 01:41 LDL Cholesterol Direct 14 mg/dL (50-130) L 07/29/17 01:41 HDL Cholesterol 13 mg/dL (40-59) L 07/29/17 01:41 Cholesterol/HDL Ratio 3.84 % 07/29/17 01:41 Vitamin B12 1830 pg/mL (211-911) H 08/01/17 17:40 Urine Color Yellow (Yellow) 07/29/17 Unknown Urine Turbidity Turbid (Clear) 07/29/17 Unknown Urine pH 5.0 (5.0-7.0) 07/29/17 Unknown Ur Specific [place] 1.024 (1.003-1.030) 07/29/17 Unknown Urine Protein 30 mg/dl mg/dL (Negative) 07/29/17 Unknown Urine Glucose (UA) >=500 mg/dL (Negative) 07/29/17 Unknown Urine Ketones Neg mg/dL (Negative) 07/29/17 Unknown Urine Blood Lg (Negative) 07/29/17 Unknown Urine Nitrite Neg (Negative) 07/29/17 Unknown Urine Bilirubin Neg (Negative) 07/29/17 Unknown Urine Urobilinogen < 2.0 mg/dL (<2.0) 07/29/17 Unknown Ur Leukocyte Esterase Mod (Negative) 07/29/17 Unknown Urine WBC (Auto) 169.0 /HPF (0.0-6.0) H 07/29/17 Unknown Urine RBC (Auto) > 182.0 /HPF (0.0-6.0) 07/29/17 Unknown U Epithel Cells (Auto) 9.0 /HPF (0-13.0) 07/29/17 Unknown Urine Bacteria (Auto) 4+ /HPF (Negative) 07/29/17 Unknown Urine WBC Clumps 3+ /HPF 07/29/17 Unknown Urine Mucus 1+ /HPF 07/29/17 Unknown Ur Yeast w Hyphae 1+ /HPF 07/29/17 Unknown Urine Yeast (Bud[place]) 3+ /HPF 07/29/17 Unknown Vancomycin Trough 12.3 ug/mL (5.0-20.0) 08/01/17 15:29 Blood Type O POSITIVE 08/03/17 08:03 Antibody Screen Negative 08/03/17 08:03 Crossmatch See Detail 08/03/17 08:03
[2017-08-05] MEDS: LANTUS SUB-Q SCH (23:22)
[2017-08-06] MEDS: HumaLOG SUB-Q SCH ×4 (03:15→17:55)
[2017-08-06 04:45] LABS: Basophils % (Auto) 0.2 % (0.0-1.8); Eosinophils # (Auto) 0.1 K/mm3 (0.0-0.4); Hematocrit 29.6 % (30.3-42.9); Hemoglobin 9.4 gm/dl (10.1-14.3); Lymphocytes # (Auto) 1.4 K/mm3 (1.2-5.4); Lymphocytes % (Auto) 12.7 % (13.4-35.0); Mean Corpuscular HGB Conc 32 % (30-34); Mean Corpuscular Volume 80 fl (79-97); Monocytes # (Auto) 0.6 K/mm3 (0.0-0.8); Monocytes % (Auto) 5.2 % (0.0-7.3); Platelet Count 369 K/mm3 (140-440); Red Blood Count 3.69 M/mm3 (3.65-5.03)
[2017-08-06 05:01] LABS: Mean Corpuscular Hemoglobin 26 pg (28-32); Red Cell Distribution Width 20.2 % (13.2-15.2)
--- NOTE | 2017-08-06 07:01 | Progress Note ---
Assessment and Plan Assessment and plan: Septic shock - Patient is managed according to sepsis protocol, IV antibiotics, fluids - Patient back on pressors Pneumonia, LLL. POA - continue IV antibiotics - Blood culture no growth so far Respiratory failure on trach -Pulmonary is following - Trach now on Tcollar Anoxic brain injury, patient is on PEG and trach chronically Coumadin toxicity -INR is dropping down - hematology oncology consulted Dr Dickerson, who is her primary care Severe anemia - patient transfused with 2 units of blood pending Post transfusion H/H Acute Cystsis -Complete abx as recommended. History of multiple strokes - Patient is bedbound Dilated CMP Nutrition - Through PEG tubes, GI consult appreciated Disposition - Continue ICU care Family on discussion with Dr Renae wantming patient to remain a DNR Can trasfer to floor once off the pressors and ok with Pulmonary. The high probability of a clinically significant, sudden or life threatening deterioration of the [cv, neurology] system(s) required my full and direct attention, intervention and personal management. The aggregate critical care time was [34] minutes. This time is in addition to time spent performing reported procedures but includes the following: [x] Data Review and interpretation [x] Patient assessment and monitoring of vital signs [x] Documentation [x] Medication orders and management s History Interval history: Patient seen and examined, remains unresponsive. Now off the ventilator Hospitalist Physical - Physical exam Narrative exam: Patient is comatose, on PEG and trach, on Tcollar Vital signs as documented. Head exam is unremarkable. No scleral icterus . Neck is without jugular venous distension, thyromegaly, or carotid bruits. Lungs are clear to auscultation. Cardiac exam reveals regular rate and Rhythm. First and second heart sounds normal. No murmurs, rubs or gallops. Abdominal exam reveals normal bowel sounds, no masses, no organomegaly and no aortic enlargement. Extremities contracted, decubitus ulcer. BUSGIRL: patient is comatose.opens eys but not following any commands - Constitutional Vitals: Temp Pulse Resp BP Pulse Ox 98.6 F 68 24 94/50 99 08/06/17 04:00 08/06/17 06:20 08/06/17 06:20 08/06/17 06:20 08/06/17 06:20 General appearance: Present: no acute distress, well-nourished Results - Labs CBC & Chem 7: 08/06/17 03:50 08/05/17 04:00 Labs: Laboratory Last Values WBC 11.2 K/mm3 (4.5-11.0) H 08/06/17 03:50 RBC 3.69 M/mm3 (3.65-5.03) 08/06/17 03:50 Hgb 9.4 gm/dl (10.1-14.3) L 08/06/17 03:50 Hct 29.6 % (30.3-42.9) L 08/06/17 03:50 MCV 80 fl (79-97) 08/06/17 03:50 MCH 26 pg (28-32) L 08/06/17 03:50 MCHC 32 % (30-34) 08/06/17 03:50 RDW 20.2 % (13.2-15.2) H 08/06/17 03:50 Plt Count 369 K/mm3 (140-440) 08/06/17 03:50 Lymph % (Auto) 12.7 % (13.4-35.0) L 08/06/17 03:50 [place] % (Auto) 5.2 % (0.0-7.3) 08/06/17 03:50 Eos % (Auto) 1.0 % (0.0-4.3) 08/06/17 03:50 Baso % (Auto) 0.2 % (0.0-1.8) 08/06/17 03:50 Lymph # 1.4 K/mm3 (1.2-5.4) 08/06/17 03:50 [place] # 0.6 K/mm3 (0.0-0.8) 08/06/17 03:50 Eos # 0.1 K/mm3 (0.0-0.4) 08/06/17 03:50 Baso # 0.0 K/mm3 (0.0-0.1) 08/06/17 03:50 Add Manual Diff Complete 07/30/17 16:52 Total Counted 100 07/30/17 16:52 Seg Neutrophils % 80.9 % (40.0-70.0) H 08/06/17 03:50 Seg Neuts % (Manual) 89.0 % (40.0-70.0) H 07/30/17 16:52 Band Neutrophils % 0 % 07/30/17 16:52 Lymphocytes % (Manual) 7.0 % (13.4-35.0) L 07/30/17 16:52 Reactive Lymphs % (Man) 0 % 07/30/17 16:52 Monocytes % (Manual) 4.0 % (0.0-7.3) 07/30/17 16:52 Eosinophils % (Manual) 0 % (0.0-4.3) 07/30/17 16:52 Basophils % (Manual) 0 % (0.0-1.8) 07/30/17 16:52 Metamyelocytes % 0 % 07/30/17 16:52 Myelocytes % 0 % 07/30/17 16:52 Promyelocytes % 0 % 07/30/17 16:52 Blast Cells % 0 % 07/30/17 16:52 Nucleated RBC % Not Reportable 07/30/17 16:52 Seg Neutrophils # 9.1 K/mm3 (1.8-7.7) H 08/06/17 03:50 Seg Neutrophils # Man 20.4 K/mm3 (1.8-7.7) H 07/30/17 16:52 Band Neutrophils # 0.0 K/mm3 07/30/17 16:52 Lymphocytes # (Manual) 1.6 K/mm3 (1.2-5.4) 07/30/17 16:52 Abs React Lymphs (Man) 0.0 K/mm3 07/30/17 16:52 Monocytes # (Manual) 0.9 K/mm3 (0.0-0.8) H 07/30/17 16:52 Eosinophils # (Manual) 0.0 K/mm3 (0.0-0.4) 07/30/17 16:52 Basophils # (Manual) 0.0 K/mm3 (0.0-0.1) 07/30/17 16:52 Metamyelocytes # 0.0 K/mm3 07/30/17 16:52 Myelocytes # 0.0 K/mm3 07/30/17 16:52 Promyelocytes # 0.0 K/mm3 07/30/17 16:52 Blast Cells # 0.0 K/mm3 07/30/17 16:52 WBC Morphology Not Reportable 07/30/17 16:52 Hypersegmented Neuts Not Reportable 07/30/17 16:52 Hyposegmented Neuts Not Reportable 07/30/17 16:52 Hypogranular Neuts Not Reportable 07/30/17 16:52 Smudge Cells Not Reportable 07/30/17 16:52 Toxic Granulation Not Reportable 07/30/17 16:52 Toxic Vacuolation Not Reportable 07/30/17 16:52 Dohle Bodies Not Reportable 07/30/17 16:52 Pelger-Huet Anomaly Not Reportable 07/30/17 16:52 Zach Rods Not Reportable 07/30/17 16:52 Platelet Estimate Consistent w auto 07/30/17 16:52 Clumped Platelets Not Reportable 07/30/17 16:52 Plt Clumps, EDTA Not Reportable 07/30/17 16:52 Large Platelets 1+ 07/30/17 16:52 Giant Platelets Not Reportable 07/30/17 16:52 Platelet Satelliting Not Reportable 07/30/17 16:52 Plt Morphology Comment Not Reportable 07/30/17 16:52 RBC Morphology Not Reportable 07/30/17 16:52 Dimorphic RBCs Not Reportable 07/30/17 16:52 Polychromasia Not Reportable 07/30/17 16:52 Hypochromasia 1+ 07/30/17 16:52 Poikilocytosis 1+ 07/30/17 16:52 Anisocytosis 1+ 07/30/17 16:52 Microcytosis Not Reportable 07/30/17 16:52 Macrocytosis Not Reportable 07/30/17 16:52 Spherocytes Not Reportable 07/30/17 16:52 Pappenheimer Bodies Not Reportable 07/30/17 16:52 Sickle Cells Not Reportable 07/30/17 16:52 Target Cells Not Reportable 07/30/17 16:52 Tear Drop Cells Not Reportable 07/30/17 16:52 Ovalocytes Not Reportable 07/30/17 16:52 Helmet Cells Not Reportable 07/30/17 16:52 [place] Bodies Not Reportable 07/30/17 16:52 [place] Rings Not Reportable 07/30/17 16:52 [place] Cells Not Reportable 07/30/17 16:52 Bite Cells Not Reportable 07/30/17 16:52 Crenated Cell Not Reportable 07/30/17 16:52 Elliptocytes Not Reportable 07/30/17 16:52 Acanthocytes (Spur) Not Reportable 07/30/17 16:52 Rouleaux Not Reportable 07/30/17 16:52 Hemoglobin C Crystals Not Reportable 07/30/17 16:52 Schistocytes Not Reportable 07/30/17 16:52 Malaria parasites Not Reportable 07/30/17 16:52 He Bodies Not Reportable 07/30/17 16:52 Hem Pathologist Commnt No 07/30/17 16:52 PT 14.5 Sec. (12.2-14.9) 08/05/17 10:22 INR 1.07 (0.87-1.13) 08/05/17 10:22 APTT 53.6 Sec. (24.2-36.6) H 07/31/17 04:00 Fibrinogen 651 mg/dl (211-480) H 07/30/17 16:55 D-Dimer 1885.58 ng/mlDDU (0-234) H 07/30/17 16:55 POC ABG pH 7.475 (7.35-7.45) H 08/06/17 04:33 ABG pH 7.327 pH Units (7.350-7.450) L 07/29/17 01:41 POC ABG pCO2 36.7 (35-45) 08/06/17 04:33 ABG pCO2 TNR 07/29/17 01:41 POC ABG pO2 93 (80-105) 08/06/17 04:33 ABG pO2 TNR 07/29/17 01:41 POC ABG HCO3 27.0 08/06/17 04:33 ABG HCO3 TNR 07/29/17 01:41 POC ABG Total CO2 28 08/06/17 04:33 POC ABG O2 Sat 98 08/06/17 04:33 ABG O2 Saturation TNR 07/29/17 01:41 ABG O2 Content TNR 07/29/17 01:41 POC ABG Base Excess 3 08/06/17 04:33 ABG Base Excess TNR 07/29/17 01:41 ABG Hemoglobin TNR 07/29/17 01:41 ABG Carboxyhemoglobin TNR 07/29/17 01:41 ABG Methemoglobin TNR 07/29/17 01:41 VBG pH 7.327 (7.320-7.420) 07/29/17 01:41 Oxyhemoglobin TNR 07/29/17 01:41 FiO2 28 % 08/06/17 04:33 Sodium 140 mmol/L (137-145) 08/05/17 04:00 Potassium 3.6 mmol/L (3.6-5.0) 08/05/17 04:00 Chloride 104.4 mmol/L (98-107) 08/05/17 04:00 Carbon Dioxide 25 mmol/L (22-30) 08/05/17 04:00 Anion Gap 14 mmol/L 08/05/17 04:00 BUN 8 mg/dL (7-17) 08/05/17 04:00 Creatinine 0.3 mg/dL (0.7-1.2) L 08/05/17 04:00 Estimated GFR > 60 ml/min 08/05/17 04:00 BUN/Creatinine Ratio 27 % 08/05/17 04:00 Glucose 186 mg/dL (65-100) H 08/05/17 04:00 POC Glucose 199 (70-105) H 08/06/17 05:27 Lactic Acid 1.50 mmol/L (0.7-2.0) 07/31/17 10:45 Calcium 8.2 mg/dL (8.4-10.2) L 08/05/17 04:00 Iron 17 ug/dL (37-170) L 08/01/17 17:40 TIBC 103 mcg/dL (250-450) L 08/01/17 17:40 Total Bilirubin 0.40 mg/dL (0.1-1.2) 08/04/17 03:53 AST 29 units/L (5-40) 08/04/17 03:53 ALT 22 units/L (7-56) 08/04/17 03:53 Alkaline Phosphatase 55 units/L (35-129) 08/04/17 03:53 Lactate Dehydrogenase 148 units/L (91-180) 08/01/17 17:40 Total Creatine Kinase 179 units/L (30-135) H 07/29/17 10:05 CK-MB (CK-2) 3.0 ng/mL (0.0-4.0) 07/29/17 10:05 CK-MB (CK-2) Rel Index 1.6 (0-4) 07/29/17 10:05 Troponin T 0.093 ng/mL (0.00-0.029) H 07/29/17 10:05 Total Protein 5.1 g/dL (6.3-8.2) L 08/04/17 03:53 Albumin 2.2 g/dL (3.9-5) L 08/04/17 03:53 Albumin/Globulin Ratio 0.8 % 08/04/17 03:53 Triglycerides 115 mg/dL (2-149) 07/29/17 01:41 Cholesterol 50 mg/dL (50-199) 07/29/17 01:41 LDL Cholesterol Direct 14 mg/dL (50-130) L 07/29/17 01:41 HDL Cholesterol 13 mg/dL (40-59) L 07/29/17 01:41 Cholesterol/HDL Ratio 3.84 % 07/29/17 01:41 Vitamin B12 1830 pg/mL (211-911) H 08/01/17 17:40 Urine Color Yellow (Yellow) 07/29/17 Unknown Urine Turbidity Turbid (Clear) 07/29/17 Unknown Urine pH 5.0 (5.0-7.0) 07/29/17 Unknown Ur Specific [place] 1.024 (1.003-1.030) 07/29/17 Unknown Urine Protein 30 mg/dl mg/dL (Negative) 07/29/17 Unknown Urine Glucose (UA) >=500 mg/dL (Negative) 07/29/17 Unknown Urine Ketones Neg mg/dL (Negative) 07/29/17 Unknown Urine Blood Lg (Negative) 07/29/17 Unknown Urine Nitrite Neg (Negative) 07/29/17 Unknown Urine Bilirubin Neg (Negative) 07/29/17 Unknown Urine Urobilinogen < 2.0 mg/dL (<2.0) 07/29/17 Unknown Ur Leukocyte Esterase Mod (Negative) 07/29/17 Unknown Urine WBC (Auto) 169.0 /HPF (0.0-6.0) H 07/29/17 Unknown Urine RBC (Auto) > 182.0 /HPF (0.0-6.0) 07/29/17 Unknown U Epithel Cells (Auto) 9.0 /HPF (0-13.0) 07/29/17 Unknown Urine Bacteria (Auto) 4+ /HPF (Negative) 07/29/17 Unknown Urine WBC Clumps 3+ /HPF 07/29/17 Unknown Urine Mucus 1+ /HPF 07/29/17 Unknown Ur Yeast w Hyphae 1+ /HPF 07/29/17 Unknown Urine Yeast (Budding) 3+ /HPF 07/29/17 Unknown Vancomycin Trough 12.3 ug/mL (5.0-20.0) 08/01/17 15:29 Blood Type O POSITIVE 08/03/17 08:03 Antibody Screen Negative 08/03/17 08:03 Crossmatch See Detail 08/03/17 08:03
[2017-08-06] MEDS: DUONEB *Not for PRN Use IH SCH ×3 (08:39→19:34)
[2017-08-06] MEDS: PROAMATINE PO SCH ×3 (08:45→23:13)
[2017-08-06] MEDS: PEPCID PO SCH ×2 (09:22→23:10)
[2017-08-06] MEDS: SODIUM CHLORIDE FLUSH SYRINGE 10 ML IV SCH ×2 (09:23→23:14)
[2017-08-06] MEDS: ROBINUL PO SCH ×2 (09:23→23:09)
--- NOTE | 2017-08-06 13:43 | Progress Note ---
Assessment and Plan Imp: 1. LLL HCAP, POA 2. Probable UTI, POA 3. Severe sepsis w/ shock 4. DYLLAN, better 5. Hypernatremia, better 6. Anoxic encephalopathy 7. Hx of Dilated CMP Rec: 1. Increase Midodrine to 10mg TID 2. 2 units of PRBCs given 08/03/17 3. T-piece; leave on indefinitely if tolerates 4. Completed ~ 7 day course of Zosyn vs. Pseudomonas from sputum and probable UTI 5. TFs, supportive, SCDs; stopped IVFs 6. There is a DNR form on her chart sent from the [place]; per discussions with nurse last PM, daughter confirmed DNR status verbally; recommend clarifying this with family and having them sign appropriate form 7. Monitor in ICU another 24 hours; leave CVL until sure can remain off pressors No family present; complex decision-making Subjective Date of service: 08/06/17 Principal diagnosis: A/C respiratory failure Interval history: No events. Tolerating Tpiece x 48 hours. Non-verbal. Off Levophed but still with low BP. Active Medications Acetaminophen (Tylenol) 650 mg MA Q4H PRN PRN Reason: Pain MILD(1-3)/Fever >100.5/JOLLY Last Admin: 08/01/17 20:11 Dose: 650 mg Albuterol/Ipratropium (Duoneb *Not For Prn Use*) 1 ampul IH TIDRT [facility] Last Admin: 08/06/17 08:39 Dose: 1 ampul Lipase/Protease/Amylase (Pancreaze Dr 10,500 Unit) 1 each FEEDTUBE PRN PRN PRN Reason: For Clogged Feeding Tube Dextrose (D50w (25gm) Syringe) 50 ml IV PRN PRN PRN Reason: Hypoglycemia Famotidine (Pepcid) 20 mg PO BID [facility] Last Admin: 08/06/17 09:22 Dose: 20 mg Glycopyrrolate (Robinul) 1 mg PO BID [facility] Last Admin: 08/06/17 09:23 Dose: 1 mg Norepinephrine (Levophed Drip 4 Mg/Ns 250 Ml) 4 mg in 250 mls @ 7.5 mls/hr IV TITR [facility]; Protocol Insulin Glargine (Lantus) 10 units SUB-Q QHS [facility] Last Admin: 08/05/17 23:22 Dose: 10 units Insulin Human Lispro (Humalog) 0 unit SUB-Q Q6HR [facility]; Protocol Last Admin: 08/06/17 12:40 Dose: 3 unit Midodrine (Proamatine) 10 mg PO TID [facility] Ondansetron HCl (Zofran) 4 mg IV Q8H PRN PRN Reason: Nausea And Vomiting Simple Syrup (Simple Syrup) 15 ml FEEDTUBE PRN PRN PRN Reason: Hypoglycemia Simple Syrup (Simple Syrup) 30 ml FEEDTUBE PRN PRN PRN Reason: Hypoglycemia Sodium Bicarbonate (Sodium Bicarbonate) 325 mg FEEDTUBE PRN PRN PRN Reason: For Clogged Feeding Tube Sodium Chloride (Sodium Chloride Flush Syringe 10 Ml) 10 ml IV BID [facility] Last Admin: 08/06/17 09:23 Dose: 10 ml Sodium Chloride (Sodium Chloride Flush Syringe 10 Ml) 10 ml IV PRN PRN PRN Reason: LINE FLUSH Objective Vital Signs - 12hr 08/06/17 08/06/17 08/06/17 01:50 02:00 02:10 Temperature Pulse Rate 77 76 77 Pulse Rate [ Anterior Throughout] Respiratory 23 27 H 26 H Rate Respiratory Rate [Anterior Throughout] Blood Pressure 98/59 92/49 92/49 O2 Sat by Pulse 99 99 98 Oximetry O2 Sat by Pulse Oximetry [ Changed] 08/06/17 08/06/17 08/06/17 02:20 02:30 02:40 Temperature Pulse Rate 78 79 77 Pulse Rate [ Anterior Throughout] Respiratory 27 H 27 H 27 H Rate Respiratory Rate [Anterior Throughout] Blood Pressure 102/57 93/53 93/53 O2 Sat by Pulse 98 98 98 Oximetry O2 Sat by Pulse Oximetry [ Changed] 08/06/17 08/06/17 08/06/17 02:50 03:00 03:10 Temperature Pulse Rate 77 81 80 Pulse Rate [ Anterior Throughout] Respiratory 27 H 29 H 29 H Rate Respiratory Rate [Anterior Throughout] Blood Pressure 91/54 90/53 90/53 O2 Sat by Pulse 98 98 96 Oximetry O2 Sat by Pulse Oximetry [ Changed] 08/06/17 08/06/17 08/06/17 03:20 03:30 03:40 Temperature Pulse Rate 79 80 77 Pulse Rate [ Anterior Throughout] Respiratory 29 H 30 H 26 H Rate Respiratory Rate [Anterior Throughout] Blood Pressure 95/53 89/54 89/54 O2 Sat by Pulse 98 98 99 Oximetry O2 Sat by Pulse Oximetry [ Changed] 08/06/17 08/06/17 08/06/17 03:50 04:00 04:10 Temperature 98.6 F Pulse Rate 79 75 83 Pulse Rate [ Anterior Throughout] Respiratory 30 H 28 H 32 H Rate Respiratory Rate [Anterior Throughout] Blood Pressure 95/50 88/50 88/50 O2 Sat by Pulse 98 98 99 Oximetry O2 Sat by Pulse Oximetry [ Changed] 08/06/17 08/06/17 08/06/17 04:20 04:30 04:40 Temperature Pulse Rate 80 88 78 Pulse Rate [ Anterior Throughout] Respiratory 27 H 29 H 30 H Rate Respiratory Rate [Anterior Throughout] Blood Pressure 92/55 92/55 105/63 O2 Sat by Pulse 99 100 97 Oximetry O2 Sat by Pulse Oximetry [ Changed] 08/06/17 08/06/17 08/06/17 04:50 05:00 05:10 Temperature Pulse Rate 76 79 76 Pulse Rate [ Anterior Throughout] Respiratory 28 H 26 H 35 H Rate Respiratory Rate [Anterior Throughout] Blood Pressure 109/56 99/54 99/54 O2 Sat by Pulse 98 99 96 Oximetry O2 Sat by Pulse Oximetry [ Changed] 08/06/17 08/06/17 08/06/17 05:20 05:30 05:40 Temperature Pulse Rate 71 65 71 Pulse Rate [ Anterior Throughout] Respiratory 28 H 23 27 H Rate Respiratory Rate [Anterior Throughout] Blood Pressure 89/47 97/48 97/48 O2 Sat by Pulse 99 100 99 Oximetry O2 Sat by Pulse Oximetry [ Changed] 08/06/17 08/06/17 08/06/17 05:50 06:00 06:10 Temperature Pulse Rate 72 66 71 Pulse Rate [ Anterior Throughout] Respiratory 24 22 24 Rate Respiratory Rate [Anterior Throughout] Blood Pressure 89/47 90/49 90/49 O2 Sat by Pulse 100 100 99 Oximetry O2 Sat by Pulse Oximetry [ Changed] 08/06/17 08/06/17 08/06/17 06:20 06:30 06:40 Temperature Pulse Rate 68 75 72 Pulse Rate [ Anterior Throughout] Respiratory 24 19 30 H Rate Respiratory Rate [Anterior Throughout] Blood Pressure 94/50 85/58 85/58 O2 Sat by Pulse 99 99 100 Oximetry O2 Sat by Pulse Oximetry [ Changed] 08/06/17 08/06/17 08/06/17 06:50 07:00 07:10 Temperature Pulse Rate 81 82 80 Pulse Rate [ Anterior Throughout] Respiratory 21 20 22 Rate Respiratory Rate [Anterior Throughout] Blood Pressure 96/59 93/55 93/55 O2 Sat by Pulse 100 100 100 Oximetry O2 Sat by Pulse Oximetry [ Changed] 08/06/17 08/06/17 08/06/17 07:20 07:30 07:40 Temperature Pulse Rate 78 74 74 Pulse Rate [ Anterior Throughout] Respiratory 22 25 H 29 H Rate Respiratory Rate [Anterior Throughout] Blood Pressure 94/60 89/54 89/54 O2 Sat by Pulse 99 99 98 Oximetry O2 Sat by Pulse Oximetry [ Changed] 08/06/17 08/06/17 08/06/17 07:50 08:00 08:10 Temperature 90.0 F L Pulse Rate 75 73 68 Pulse Rate [ Anterior Throughout] Respiratory 21 31 H 26 H Rate Respiratory Rate [Anterior Throughout] Blood Pressure 92/51 79/46 92/51 O2 Sat by Pulse 98 98 100 Oximetry O2 Sat by Pulse Oximetry [ Changed] 08/06/17 08/06/17 08/06/17 08:15 08:30 08:40 Temperature Pulse Rate 72 92 H Pulse Rate [ 81 Anterior Throughout] Respiratory 26 H 12 Rate Respiratory 26 H Rate [Anterior Throughout] Blood Pressure 95/53 95/53 O2 Sat by Pulse 98 99 98 Oximetry O2 Sat by Pulse 98 Oximetry [ Changed] 08/06/17 08/06/17 08/06/17 08:45 08:56 09:00 Temperature Pulse Rate 78 84 Pulse Rate [ 78 Anterior Throughout] Respiratory 26 H 17 Rate Respiratory 27 H Rate [Anterior Throughout] Blood Pressure 102/54 105/59 O2 Sat by Pulse 97 100 Oximetry O2 Sat by Pulse Oximetry [ Changed] 08/06/17 08/06/17 08/06/17 09:15 09:30 09:45 Temperature Pulse Rate 80 75 78 Pulse Rate [ Anterior Throughout] Respiratory 26 H 29 H 27 H Rate Respiratory Rate [Anterior Throughout] Blood Pressure 87/54 93/50 111/62 O2 Sat by Pulse 98 98 100 Oximetry O2 Sat by Pulse Oximetry [ Changed] 08/06/17 08/06/17 08/06/17 10:00 10:15 10:30 Temperature Pulse Rate 70 79 72 Pulse Rate [ Anterior Throughout] Respiratory 27 H 14 23 Rate Respiratory Rate [Anterior Throughout] Blood Pressure 111/59 91/61 114/63 O2 Sat by Pulse 96 96 98 Oximetry O2 Sat by Pulse Oximetry [ Changed] 08/06/17 08/06/17 08/06/17 10:45 11:00 11:15 Temperature Pulse Rate 70 62 67 Pulse Rate [ Anterior Throughout] Respiratory 20 23 22 Rate Respiratory Rate [Anterior Throughout] Blood Pressure 114/66 114/66 120/63 O2 Sat by Pulse 99 98 100 Oximetry O2 Sat by Pulse Oximetry [ Changed] 08/06/17 08/06/17 08/06/17 11:30 11:46 12:00 Temperature 98.9 F Pulse Rate 72 72 66 Pulse Rate [ Anterior Throughout] Respiratory 26 H 24 27 H Rate Respiratory Rate [Anterior Throughout] Blood Pressure 92/39 107/55 107/55 O2 Sat by Pulse 99 100 98 Oximetry O2 Sat by Pulse Oximetry [ Changed] 08/06/17 08/06/17 08/06/17 12:16 12:30 12:45 Temperature Pulse Rate 78 78 76 Pulse Rate [ Anterior Throughout] Respiratory 23 24 28 H Rate Respiratory Rate [Anterior Throughout] Blood Pressure 111/64 112/70 121/64 O2 Sat by Pulse 100 100 100 Oximetry O2 Sat by Pulse Oximetry [ Changed] 08/06/17 13:00 Temperature Pulse Rate 76 Pulse Rate [ Anterior Throughout] Respiratory 28 H Rate Respiratory Rate [Anterior Throughout] Blood Pressure 121/64 O2 Sat by Pulse 97 Oximetry O2 Sat by Pulse Oximetry [ Changed] Constitutional: no acute distress Eyes: non-icteric ENT: oropharynx dry Neck: supple, other (tracheostomy present) Effort: normal Ascultation: Bilateral: other (coarse BS) Cardiovascular: regular rate and rhythm (no mrg) Gastrointestinal: normoactive bowel sounds, soft, non-tender, non-distended Integumentary: normal Extremities: no cyanosis, other (contraction deformities present. Edema present.) Neurologic: other (moving more when stimulated, nothing purposeful) Psychiatric: other (unable to assess) CBC and BMP: 08/06/17 03:50 08/05/17 04:00 ABG, PT/INR, D-dimer: ABG POC ABG pH 7.475 (7.35-7.45) H 08/06/17 04:33 ABG pH 7.327 pH Units (7.350-7.450) L 07/29/17 01:41 POC ABG pCO2 36.7 (35-45) 08/06/17 04:33 ABG pCO2 TNR 07/29/17 01:41 POC ABG pO2 93 (80-105) 08/06/17 04:33 ABG pO2 TNR 07/29/17 01:41 POC ABG HCO3 27.0 08/06/17 04:33 POC ABG Total CO2 28 08/06/17 04:33 POC ABG O2 Sat 98 08/06/17 04:33 ABG O2 Saturation TNR 07/29/17 01:41 PT/INR, D-dimer PT 14.5 Sec. (12.2-14.9) 08/05/17 10:22 INR 1.07 (0.87-1.13) 08/05/17 10:22 D-Dimer 1885.58 ng/mlDDU (0-234) H 07/30/17 16:55 Abnormal lab findings: Abnormal Labs 07/29/17 07/29/17 07/29/17 01:41 01:41 01:41 WBC 21.0 H RBC Hgb 9.7 L Hct MCV MCH 24 L RDW 19.0 H Lymph % (Auto) Mcpherson % (Auto) Seg Neutrophils % Seg Neuts % (Manual) 77.0 H Lymphocytes % (Manual) 4.5 L Nucleated RBC % 1.0 H Seg Neutrophils # Seg Neutrophils # Man 16.2 H Lymphocytes # (Manual) 0.9 L Monocytes # (Manual) PT 54.1 H INR 5.49 H* APTT 55.7 H Fibrinogen D-Dimer POC ABG pH ABG pH POC ABG pCO2 POC ABG pO2 Sodium Potassium Chloride Carbon Dioxide BUN Creatinine Glucose POC Glucose Lactic Acid 9.30 H* Calcium Iron TIBC Total Creatine Kinase Troponin T Total Protein Albumin LDL Cholesterol Direct HDL Cholesterol Vitamin B12 Urine WBC (Auto) Vancomycin Trough Crossmatch 07/29/17 07/29/17 07/29/17 01:41 01:41 02:45 WBC RBC Hgb Hct MCV MCH RDW Lymph % (Auto) Mcpherson % (Auto) Seg Neutrophils % Seg Neuts % (Manual) Lymphocytes % (Manual) Nucleated RBC % Seg Neutrophils # Seg Neutrophils # Man Lymphocytes # (Manual) Monocytes # (Manual) PT INR APTT Fibrinogen D-Dimer POC ABG pH ABG pH 7.327 L POC ABG pCO2 32.9 L POC ABG pO2 74 L Sodium 154 H Potassium Chloride 109.8 H Carbon Dioxide BUN 43 H Creatinine 1.3 H Glucose 682 H* POC Glucose Lactic Acid Calcium Iron TIBC Total Creatine Kinase Troponin T 0.209 H* Total Protein Albumin 2.0 L LDL Cholesterol Direct 14 L HDL Cholesterol 13 L Vitamin B12 Urine WBC (Auto) Vancomycin Trough Crossmatch 07/29/17 07/29/17 07/29/17 03:19 04:11 04:11 WBC RBC Hgb Hct MCV MCH RDW Lymph % (Auto) Mcpherson % (Auto) Seg Neutrophils % Seg Neuts % (Manual) Lymphocytes % (Manual) Nucleated RBC % Seg Neutrophils # Seg Neutrophils # Man Lymphocytes # (Manual) Monocytes # (Manual) PT INR APTT Fibrinogen D-Dimer POC ABG pH ABG pH POC ABG pCO2 POC ABG pO2 Sodium Potassium Chloride Carbon Dioxide BUN Creatinine Glucose POC Glucose Lactic Acid 8.30 H* 7.50 H* Calcium Iron TIBC Total Creatine Kinase Troponin T 0.169 H* Total Protein Albumin LDL Cholesterol Direct HDL Cholesterol Vitamin B12 Urine WBC (Auto) Vancomycin Trough Crossmatch 07/29/17 07/29/17 07/29/17 07:50 07:50 09:46 WBC RBC Hgb Hct MCV MCH RDW Lymph % (Auto) Mcpherson % (Auto) Seg Neutrophils % Seg Neuts % (Manual) Lymphocytes % (Manual) Nucleated RBC % Seg Neutrophils # Seg Neutrophils # Man Lymphocytes # (Manual) Monocytes # (Manual) PT INR APTT Fibrinogen D-Dimer POC ABG pH ABG pH POC ABG pCO2 POC ABG pO2 Sodium Potassium Chloride Carbon Dioxide BUN Creatinine Glucose POC Glucose 380 H Lactic Acid 3.30 H* Calcium Iron TIBC Total Creatine Kinase 172 H Troponin T 0.111 H* D Total Protein Albumin LDL Cholesterol Direct HDL Cholesterol Vitamin B12 Urine WBC (Auto) Vancomycin Trough Crossmatch 07/29/17 07/29/17 07/29/17 10:05 10:05 12:45 WBC RBC Hgb Hct MCV MCH RDW Lymph % (Auto) Mcpherson % (Auto) Seg Neutrophils % Seg Neuts % (Manual) Lymphocytes % (Manual) Nucleated RBC % Seg Neutrophils # Seg Neutrophils # Man Lymphocytes # (Manual) Monocytes # (Manual) PT INR APTT Fibrinogen D-Dimer POC ABG pH ABG pH POC ABG pCO2 POC ABG pO2 Sodium Potassium Chloride Carbon Dioxide BUN Creatinine Glucose POC Glucose 404 H Lactic Acid 2.30 H* Calcium Iron TIBC Total Creatine Kinase 179 H Troponin T 0.093 H Total Protein Albumin LDL Cholesterol Direct HDL Cholesterol Vitamin B12 Urine WBC (Auto) Vancomycin Trough Crossmatch 07/29/17 07/29/17 07/29/17 17:32 19:23 Unknown WBC RBC Hgb Hct MCV MCH RDW Lymph % (Auto) Mcpherson % (Auto) Seg Neutrophils % Seg Neuts % (Manual) Lymphocytes % (Manual) Nucleated RBC % Seg Neutrophils # Seg Neutrophils # Man Lymphocytes # (Manual) Monocytes # (Manual) PT INR APTT Fibrinogen D-Dimer POC ABG pH ABG pH POC ABG pCO2 POC ABG pO2 Sodium 156 H Potassium 2.6 L* D Chloride 119.9 H Carbon Dioxide BUN 25 H Creatinine Glucose 275 H POC Glucose 343 H Lactic Acid Calcium 7.7 L Iron TIBC Total Creatine Kinase Troponin T Total Protein Albumin LDL Cholesterol Direct HDL Cholesterol Vitamin B12 Urine WBC (Auto) 169.0 H Vancomycin Trough Crossmatch 07/30/17 07/30/17 07/30/17 00:02 05:33 05:40 WBC 23.9 H RBC 3.51 L Hgb 8.3 L Hct 26.8 L MCV 77 L MCH 24 L RDW 18.3 H Lymph % (Auto) Mcpherson % (Auto) Seg Neutrophils % Seg Neuts % (Manual) 84.0 H Lymphocytes % (Manual) 7.0 L Nucleated RBC % Seg Neutrophils # Seg Neutrophils # Man 20.1 H Lymphocytes # (Manual) Monocytes # (Manual) PT INR APTT Fibrinogen D-Dimer POC ABG pH ABG pH POC ABG pCO2 POC ABG pO2 Sodium Potassium Chloride Carbon Dioxide BUN Creatinine Glucose POC Glucose 186 H 246 H Lactic Acid Calcium Iron TIBC Total Creatine Kinase Troponin T Total Protein Albumin LDL Cholesterol Direct HDL Cholesterol Vitamin B12 Urine WBC (Auto) Vancomycin Trough Crossmatch 07/30/17 07/30/17 07/30/17 05:40 06:13 11:53 WBC RBC Hgb Hct MCV MCH RDW Lymph % (Auto) Mcpherson % (Auto) Seg Neutrophils % Seg Neuts % (Manual) Lymphocytes % (Manual) Nucleated RBC % Seg Neutrophils # Seg Neutrophils # Man Lymphocytes # (Manual) Monocytes # (Manual) PT INR APTT Fibrinogen D-Dimer POC ABG pH 7.461 H ABG pH POC ABG pCO2 33.9 L POC ABG pO2 226 H Sodium 156 H Potassium 3.2 L D Chloride 117.5 H Carbon Dioxide BUN 19 H Creatinine 0.6 L Glucose 212 H POC Glucose 166 H Lactic Acid Calcium 7.8 L Iron TIBC Total Creatine Kinase Troponin T Total Protein Albumin LDL Cholesterol Direct HDL Cholesterol Vitamin B12 Urine WBC (Auto) Vancomycin Trough Crossmatch 07/30/17 07/30/17 07/30/17 15:54 16:52 16:55 WBC 22.9 H RBC 3.29 L Hgb 7.8 L Hct 25.1 L MCV 76 L MCH 24 L RDW 18.2 H Lymph % (Auto) Mcpherson % (Auto) Seg Neutrophils % Seg Neuts % (Manual) 89.0 H Lymphocytes % (Manual) 7.0 L Nucleated RBC % Seg Neutrophils # Seg Neutrophils # Man 20.4 H Lymphocytes # (Manual) Monocytes # (Manual) 0.9 H PT INR APTT Fibrinogen D-Dimer POC ABG pH ABG pH POC ABG pCO2 POC ABG pO2 Sodium 154 H Potassium 3.5 L Chloride 122.1 H Carbon Dioxide BUN Creatinine 0.5 L Glucose 180 H POC Glucose Lactic Acid Calcium 7.6 L Iron TIBC Total Creatine Kinase Troponin T Total Protein Albumin LDL Cholesterol Direct HDL Cholesterol Vitamin B12 Urine WBC (Auto) Vancomycin Trough 29.7 H Crossmatch 07/30/17 07/30/17 07/30/17 16:55 17:06 21:00 WBC RBC Hgb Hct MCV MCH RDW Lymph % (Auto) Mcpherson % (Auto) Seg Neutrophils % Seg Neuts % (Manual) Lymphocytes % (Manual) Nucleated RBC % Seg Neutrophils # Seg Neutrophils # Man Lymphocytes # (Manual) Monocytes # (Manual) PT 44.7 H INR 4.33 H APTT 62.8 H* Fibrinogen 651 H D-Dimer 1885.58 H POC ABG pH ABG pH POC ABG pCO2 POC ABG pO2 Sodium 150 H Potassium 3.2 L Chloride 114.3 H Carbon Dioxide BUN Creatinine 0.5 L Glucose 167 H POC Glucose 213 H Lactic Acid Calcium 7.7 L Iron TIBC Total Creatine Kinase Troponin T Total Protein Albumin LDL Cholesterol Direct HDL Cholesterol Vitamin B12 Urine WBC (Auto) Vancomycin Trough Crossmatch 07/30/17 07/31/1718 Unknown 00:29 04:00 WBC RBC Hgb Hct MCV MCH RDW Lymph % (Auto) Mcpherson % (Auto) Seg Neutrophils % Seg Neuts % (Manual) Lymphocytes % (Manual) Nucleated RBC % Seg Neutrophils # Seg Neutrophils # Man Lymphocytes # (Manual) Monocytes # (Manual) PT 57.1 H 33.9 H INR 5.87 H* 3.08 H APTT 53.6 H Fibrinogen D-Dimer POC ABG pH ABG pH POC ABG pCO2 POC ABG pO2 Sodium Potassium Chloride Carbon Dioxide BUN Creatinine Glucose POC Glucose 198 H Lactic Acid Calcium Iron TIBC Total Creatine Kinase Troponin T Total Protein Albumin LDL Cholesterol Direct HDL Cholesterol Vitamin B12 Urine WBC (Auto) Vancomycin Trough Crossmatch 07/31/17 07/31/17 07/31/17 04:00 04:00 05:51 WBC 17.2 H RBC 3.14 L Hgb 7.5 L Hct 23.9 L MCV 76 L MCH 24 L RDW 18.3 H Lymph % (Auto) 9.1 L Mcpherson % (Auto) Seg Neutrophils % 88.1 H Seg Neuts % (Manual) Lymphocytes % (Manual) Nucleated RBC % Seg Neutrophils # 15.2 H Seg Neutrophils # Man Lymphocytes # (Manual) Monocytes # (Manual) PT INR APTT Fibrinogen D-Dimer POC ABG pH 7.538 H ABG pH POC ABG pCO2 25.6 L POC ABG pO2 118 H Sodium 147 H Potassium Chloride 113.9 H Carbon Dioxide BUN Creatinine 0.4 L Glucose 175 H POC Glucose Lactic Acid Calcium 7.6 L Iron TIBC Total Creatine Kinase Troponin T Total Protein Albumin LDL Cholesterol Direct HDL Cholesterol Vitamin B12 Urine WBC (Auto) Vancomycin Trough Crossmatch 07/31/17 07/31/17 07/31/17 05:51 10:45 11:25 WBC RBC Hgb Hct MCV MCH RDW Lymph % (Auto) Mcpherson % (Auto) Seg Neutrophils % Seg Neuts % (Manual) Lymphocytes % (Manual) Nucleated RBC % Seg Neutrophils # Seg Neutrophils # Man Lymphocytes # (Manual) Monocytes # (Manual) PT INR APTT Fibrinogen D-Dimer POC ABG pH ABG pH POC ABG pCO2 POC ABG pO2 Sodium Potassium 3.3 L Chloride 108.4 H Carbon Dioxide BUN Creatinine 0.4 L Glucose 139 H POC Glucose 176 H 147 H Lactic Acid Calcium 7.6 L Iron TIBC Total Creatine Kinase Troponin T Total Protein Albumin LDL Cholesterol Direct HDL Cholesterol Vitamin B12 Urine WBC (Auto) Vancomycin Trough Crossmatch 07/31/17 08/01/17 08/01/17 17:46 00:01 05:07 WBC RBC Hgb Hct MCV MCH RDW Lymph % (Auto) Mcpherson % (Auto) Seg Neutrophils % Seg Neuts % (Manual) Lymphocytes % (Manual) Nucleated RBC % Seg Neutrophils # Seg Neutrophils # Man Lymphocytes # (Manual) Monocytes # (Manual) PT INR APTT Fibrinogen D-Dimer POC ABG pH ABG pH POC ABG pCO2 POC ABG pO2 Sodium Potassium Chloride Carbon Dioxide BUN Creatinine Glucose POC Glucose 222 H 240 H 195 H Lactic Acid Calcium Iron TIBC Total Creatine Kinase Troponin T Total Protein Albumin LDL Cholesterol Direct HDL Cholesterol Vitamin B12 Urine WBC (Auto) Vancomycin Trough Crossmatch 08/01/17 08/01/17 08/01/17 05:46 06:38 06:38 WBC 11.7 H RBC 3.00 L Hgb 7.1 L Hct 22.6 L MCV 75 L MCH 24 L RDW 18.4 H Lymph % (Auto) 12.8 L Mcpherson % (Auto) Seg Neutrophils % 82.5 H Seg Neuts % (Manual) Lymphocytes % (Manual) Nucleated RBC % Seg Neutrophils # 9.7 H Seg Neutrophils # Man Lymphocytes # (Manual) Monocytes # (Manual) PT INR APTT Fibrinogen D-Dimer POC ABG pH 7.491 H ABG pH POC ABG pCO2 26.6 L POC ABG pO2 Sodium Potassium Chloride Carbon Dioxide BUN Creatinine 0.4 L Glucose 191 H POC Glucose Lactic Acid Calcium 7.7 L Iron TIBC Total Creatine Kinase Troponin T Total Protein Albumin LDL Cholesterol Direct HDL Cholesterol Vitamin B12 Urine WBC (Auto) Vancomycin Trough Crossmatch 08/01/17 08/01/17 08/01/17 11:47 17:40 17:40 WBC RBC Hgb Hct MCV MCH RDW Lymph % (Auto) Mcpherson % (Auto) Seg Neutrophils % Seg Neuts % (Manual) Lymphocytes % (Manual) Nucleated RBC % Seg Neutrophils # Seg Neutrophils # Man Lymphocytes # (Manual) Monocytes # (Manual) PT 20.4 H INR 1.64 H APTT Fibrinogen D-Dimer POC ABG pH ABG pH POC ABG pCO2 POC ABG pO2 Sodium Potassium Chloride Carbon Dioxide BUN Creatinine Glucose POC Glucose 289 H Lactic Acid Calcium Iron 17 L TIBC 103 L Total Creatine Kinase Troponin T Total Protein Albumin LDL Cholesterol Direct HDL Cholesterol Vitamin B12 Urine WBC (Auto) Vancomycin Trough Crossmatch 08/01/17 08/01/17 08/01/17 17:40 17:43 23:48 WBC RBC Hgb Hct MCV MCH RDW Lymph % (Auto) Mcpherson % (Auto) Seg Neutrophils % Seg Neuts % (Manual) Lymphocytes % (Manual) Nucleated RBC % Seg Neutrophils # Seg Neutrophils # Man Lymphocytes # (Manual) Monocytes # (Manual) PT INR APTT Fibrinogen D-Dimer POC ABG pH ABG pH POC ABG pCO2 POC ABG pO2 Sodium Potassium Chloride Carbon Dioxide BUN Creatinine Glucose POC Glucose 254 H 248 H Lactic Acid Calcium Iron TIBC Total Creatine Kinase Troponin T Total Protein Albumin LDL Cholesterol Direct HDL Cholesterol Vitamin B12 1830 H Urine WBC (Auto) Vancomycin Trough Crossmatch 08/02/17 08/02/17 08/02/17 03:56 04:00 04:00 WBC 12.7 H RBC 3.04 L Hgb 7.2 L Hct 22.8 L MCV 75 L MCH 24 L RDW 18.0 H Lymph % (Auto) 13.1 L Mcpherson % (Auto) Seg Neutrophils % 81.5 H Seg Neuts % (Manual) Lymphocytes % (Manual) Nucleated RBC % Seg Neutrophils # 10.3 H Seg Neutrophils # Man Lymphocytes # (Manual) Monocytes # (Manual) PT INR APTT Fibrinogen D-Dimer POC ABG pH 7.537 H ABG pH POC ABG pCO2 28.4 L POC ABG pO2 109 H Sodium Potassium 3.0 L Chloride 109.0 H Carbon Dioxide 20 L BUN 6 L Creatinine 0.3 L Glucose 196 H POC Glucose Lactic Acid Calcium 6.3 L D Iron TIBC Total Creatine Kinase Troponin T Total Protein Albumin LDL Cholesterol Direct HDL Cholesterol Vitamin B12 Urine WBC (Auto) Vancomycin Trough Crossmatch 08/02/17 08/02/17 08/02/17 05:20 10:00 12:16 WBC RBC Hgb Hct MCV MCH RDW Lymph % (Auto) Mcpherson % (Auto) Seg Neutrophils % Seg Neuts % (Manual) Lymphocytes % (Manual) Nucleated RBC % Seg Neutrophils # Seg Neutrophils # Man Lymphocytes # (Manual) Monocytes # (Manual) PT 18.6 H INR 1.46 H APTT Fibrinogen D-Dimer POC ABG pH ABG pH POC ABG pCO2 POC ABG pO2 Sodium Potassium Chloride Carbon Dioxide BUN Creatinine Glucose POC Glucose 295 H 296 H Lactic Acid Calcium Iron TIBC Total Creatine Kinase Troponin T Total Protein Albumin LDL Cholesterol Direct HDL Cholesterol Vitamin B12 Urine WBC (Auto) Vancomycin Trough Crossmatch 08/02/17 08/02/17 08/03/17 13:10 18:03 00:19 WBC RBC Hgb Hct MCV MCH RDW Lymph % (Auto) Mcpherson % (Auto) Seg Neutrophils % Seg Neuts % (Manual) Lymphocytes % (Manual) Nucleated RBC % Seg Neutrophils # Seg Neutrophils # Man Lymphocytes # (Manual) Monocytes # (Manual) PT INR APTT Fibrinogen D-Dimer POC ABG pH 7.500 H ABG pH POC ABG pCO2 31.9 L POC ABG pO2 107 H Sodium Potassium Chloride Carbon Dioxide BUN Creatinine Glucose POC Glucose 273 H 244 H Lactic Acid Calcium Iron TIBC Total Creatine Kinase Troponin T Total Protein Albumin LDL Cholesterol Direct HDL Cholesterol Vitamin B12 Urine WBC (Auto) Vancomycin Trough Crossmatch 08/03/17 08/03/17 08/03/17 03:30 03:30 05:14 WBC RBC 2.67 L Hgb 6.5 L Hct 20.2 L MCV 76 L MCH 24 L RDW 18.3 H Lymph % (Auto) Mcpherson % (Auto) 7.4 H Seg Neutrophils % 75.9 H Seg Neuts % (Manual) Lymphocytes % (Manual) Nucleated RBC % Seg Neutrophils # Seg Neutrophils # Man Lymphocytes # (Manual) Monocytes # (Manual) PT INR APTT Fibrinogen D-Dimer POC ABG pH ABG pH POC ABG pCO2 POC ABG pO2 Sodium 135 L Potassium Chloride Carbon Dioxide BUN Creatinine 0.3 L Glucose 207 H POC Glucose 205 H Lactic Acid Calcium 7.5 L D Iron TIBC Total Creatine Kinase Troponin T Total Protein Albumin LDL Cholesterol Direct HDL Cholesterol Vitamin B12 Urine WBC (Auto) Vancomycin Trough Crossmatch 08/03/17 08/03/17 08/03/17 05:14 08:03 12:11 WBC RBC Hgb Hct MCV MCH RDW Lymph % (Auto) Mcpherson % (Auto) Seg Neutrophils % Seg Neuts % (Manual) Lymphocytes % (Manual) Nucleated RBC % Seg Neutrophils # Seg Neutrophils # Man Lymphocytes # (Manual) Monocytes # (Manual) PT INR APTT Fibrinogen D-Dimer POC ABG pH 7.479 H ABG pH POC ABG pCO2 34.5 L POC ABG pO2 141 H Sodium Potassium Chloride Carbon Dioxide BUN Creatinine Glucose POC Glucose 270 H Lactic Acid Calcium Iron TIBC Total Creatine Kinase Troponin T Total Protein Albumin LDL Cholesterol Direct HDL Cholesterol Vitamin B12 Urine WBC (Auto) Vancomycin Trough Crossmatch See Detail 08/03/17 08/03/17 08/04/17 17:27 23:59 03:52 WBC RBC Hgb Hct MCV MCH RDW Lymph % (Auto) [place] % (Auto) Seg Neutrophils % Seg Neuts % (Manual) Lymphocytes % (Manual) Nucleated RBC % Seg Neutrophils # Seg Neutrophils # Man Lymphocytes # (Manual) Monocytes # (Manual) PT INR APTT Fibrinogen D-Dimer POC ABG pH 7.488 H ABG pH POC ABG pCO2 33.3 L POC ABG pO2 111 H Sodium Potassium Chloride Carbon Dioxide BUN Creatinine Glucose POC Glucose 219 H 162 H Lactic Acid Calcium Iron TIBC Total Creatine Kinase Troponin T Total Protein Albumin LDL Cholesterol Direct HDL Cholesterol Vitamin B12 Urine WBC (Auto) Vancomycin Trough Crossmatch 08/04/17 08/04/17 08/04/17 03:53 03:53 05:48 WBC RBC Hgb Hct MCV 76 L MCH 26 L RDW 19.4 H Lymph % (Auto) 12.8 L [place] % (Auto) Seg Neutrophils % 79.1 H Seg Neuts % (Manual) Lymphocytes % (Manual) Nucleated RBC % Seg Neutrophils # Seg Neutrophils # Man Lymphocytes # (Manual) Monocytes # (Manual) PT INR APTT Fibrinogen D-Dimer POC ABG pH ABG pH POC ABG pCO2 POC ABG pO2 Sodium Potassium Chloride Carbon Dioxide 21 L BUN Creatinine 0.3 L Glucose 146 H POC Glucose 137 H Lactic Acid Calcium 7.6 L Iron TIBC Total Creatine Kinase Troponin T Total Protein 5.1 L Albumin 2.2 L LDL Cholesterol Direct HDL Cholesterol Vitamin B12 Urine WBC (Auto) Vancomycin Trough Crossmatch 08/04/17 08/04/17 08/04/17 10:07 11:23 18:01 WBC RBC Hgb Hct MCV MCH RDW Lymph % (Auto) [place] % (Auto) Seg Neutrophils % Seg Neuts % (Manual) Lymphocytes % (Manual) Nucleated RBC % Seg Neutrophils # Seg Neutrophils # Man Lymphocytes # (Manual) Monocytes # (Manual) PT 15.1 H INR APTT Fibrinogen D-Dimer POC ABG pH ABG pH POC ABG pCO2 POC ABG pO2 Sodium Potassium Chloride Carbon Dioxide BUN Creatinine Glucose POC Glucose 156 H 242 H Lactic Acid Calcium Iron TIBC Total Creatine Kinase Troponin T Total Protein Albumin LDL Cholesterol Direct HDL Cholesterol Vitamin B12 Urine WBC (Auto) Vancomycin Trough Crossmatch 08/04/17 08/05/17 08/05/17 23:56 04:00 04:00 WBC RBC Hgb 9.9 L Hct 29.5 L MCV MCH 26 L RDW 19.8 H Lymph % (Auto) [place] % (Auto) Seg Neutrophils % 77.9 H Seg Neuts % (Manual) Lymphocytes % (Manual) Nucleated RBC % Seg Neutrophils # Seg Neutrophils # Man Lymphocytes # (Manual) Monocytes # (Manual) PT INR APTT Fibrinogen D-Dimer POC ABG pH ABG pH POC ABG pCO2 POC ABG pO2 Sodium Potassium Chloride Carbon Dioxide BUN Creatinine 0.3 L Glucose 186 H POC Glucose 201 H Lactic Acid Calcium 8.2 L Iron TIBC Total Creatine Kinase Troponin T Total Protein Albumin LDL Cholesterol Direct HDL Cholesterol Vitamin B12 Urine WBC (Auto) Vancomycin Trough Crossmatch 08/05/17 08/05/17 08/05/17 04:13 05:19 13:46 WBC RBC Hgb Hct MCV MCH RDW Lymph % (Auto) [place] % (Auto) Seg Neutrophils % Seg Neuts % (Manual) Lymphocytes % (Manual) Nucleated RBC % Seg Neutrophils # Seg Neutrophils # Man Lymphocytes # (Manual) Monocytes # (Manual) PT INR APTT Fibrinogen D-Dimer POC ABG pH 7.459 H ABG pH POC ABG pCO2 POC ABG pO2 Sodium Potassium Chloride Carbon Dioxide BUN Creatinine Glucose POC Glucose 193 H 238 H Lactic Acid Calcium Iron TIBC Total Creatine Kinase Troponin T Total Protein Albumin LDL Cholesterol Direct HDL Cholesterol Vitamin B12 Urine WBC (Auto) Vancomycin Trough Crossmatch 08/05/17 08/06/17 08/06/17 17:12 00:07 03:50 WBC 11.2 H RBC Hgb 9.4 L Hct 29.6 L MCV MCH 26 L RDW 20.2 H Lymph % (Auto) 12.7 L [place] % (Auto) Seg Neutrophils % 80.9 H Seg Neuts % (Manual) Lymphocytes % (Manual) Nucleated RBC % Seg Neutrophils # 9.1 H Seg Neutrophils # Man Lymphocytes # (Manual) Monocytes # (Manual) PT INR APTT Fibrinogen D-Dimer POC ABG pH ABG pH POC ABG pCO2 POC ABG pO2 Sodium Potassium Chloride Carbon Dioxide BUN Creatinine Glucose POC Glucose 197 H 124 H Lactic Acid Calcium Iron TIBC Total Creatine Kinase Troponin T Total Protein Albumin LDL Cholesterol Direct HDL Cholesterol Vitamin B12 Urine WBC (Auto) Vancomycin Trough Crossmatch 08/06/17 08/06/17 08/06/17 04:33 05:27 11:50 WBC RBC Hgb Hct MCV MCH RDW Lymph % (Auto) [place] % (Auto) Seg Neutrophils % Seg Neuts % (Manual) Lymphocytes % (Manual) Nucleated RBC % Seg Neutrophils # Seg Neutrophils # Man Lymphocytes # (Manual) Monocytes # (Manual) PT INR APTT Fibrinogen D-Dimer POC ABG pH 7.475 H ABG pH POC ABG pCO2 POC ABG pO2 Sodium Potassium Chloride Carbon Dioxide BUN Creatinine Glucose POC Glucose 199 H 190 H Lactic Acid Calcium Iron TIBC Total Creatine Kinase Troponin T Total Protein Albumin LDL Cholesterol Direct HDL Cholesterol Vitamin B12 Urine WBC (Auto) Vancomycin Trough Crossmatch Chest x-ray: report reviewed, image reviewed
[2017-08-06 13:55] LABS: INR 1.04 (0.87-1.13)
--- NOTE | 2017-08-06 17:58 | Progress Note ---
Assessment and Plan Assessment and plan: Septic shock - Patient is managed according to sepsis protocol, IV antibiotics, fluids - Patient back on pressors Hypotension -off levophed, increased Midodrine to 10mg TID Pneumonia, LLL. POA - continue IV antibiotics - Blood culture no growth so far Respiratory failure on trach -Pulmonary is following - Trach now on Tcollar Anoxic brain injury, patient is on PEG and trach chronically Coumadin toxicity -INR is dropping down - hematology oncology consulted Dr Dickerson, who is her primary care Severe anemia - patient transfused with 2 units of blood pending Post transfusion H/H Acute Cystsis -Complete abx as recommended. History of multiple strokes - Patient is bedbound Dilated CMP Nutrition - Through PEG tubes, GI consult appreciated Disposition - Continue ICU care Family on discussion with Dr Renae wantming patient to remain a DNR The high probability of a clinically significant, sudden or life threatening deterioration of the [cv, neurology] system(s) required my full and direct attention, intervention and personal management. The aggregate critical care time was [34] minutes. This time is in addition to time spent performing reported procedures but includes the following: [x] Data Review and interpretation [x] Patient assessment and monitoring of vital signs [x] Documentation [x] Medication orders and management History Interval history: Patient seen and examined, remains unresponsive. Now off the ventilator Hospitalist Physical - Physical exam Narrative exam: Patient is comatose, on PEG and trach, on Tcollar Vital signs as documented. Head exam is unremarkable. No scleral icterus . Neck is without jugular venous distension, thyromegaly, or carotid bruits. Lungs are clear to auscultation. Cardiac exam reveals regular rate and Rhythm. First and second heart sounds normal. No murmurs, rubs or gallops. Abdominal exam reveals normal bowel sounds, no masses, no organomegaly and no aortic enlargement. Extremities contracted, decubitus ulcer. 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.opens eys but not following any commands - Constitutional Vitals: Temp Pulse Resp BP Pulse Ox 97.9 F 65 24 130/64 98 08/06/17 16:00 08/06/17 16:30 08/06/17 16:30 08/06/17 16:30 08/06/17 16:30 General appearance: Present: no acute distress, well-nourished Results - Labs CBC & Chem 7: 08/06/17 03:50 08/05/17 04:00 Labs: Laboratory Last Values WBC 11.2 K/mm3 (4.5-11.0) H 08/06/17 03:50 RBC 3.69 M/mm3 (3.65-5.03) 08/06/17 03:50 Hgb 9.4 gm/dl (10.1-14.3) L 08/06/17 03:50 Hct 29.6 % (30.3-42.9) L 08/06/17 03:50 MCV 80 fl (79-97) 08/06/17 03:50 MCH 26 pg (28-32) L 08/06/17 03:50 MCHC 32 % (30-34) 08/06/17 03:50 RDW 20.2 % (13.2-15.2) H 08/06/17 03:50 Plt Count 369 K/mm3 (140-440) 08/06/17 03:50 Lymph % (Auto) 12.7 % (13.4-35.0) L 08/06/17 03:50 [place] % (Auto) 5.2 % (0.0-7.3) 08/06/17 03:50 Eos % (Auto) 1.0 % (0.0-4.3) 08/06/17 03:50 Baso % (Auto) 0.2 % (0.0-1.8) 08/06/17 03:50 Lymph # 1.4 K/mm3 (1.2-5.4) 08/06/17 03:50 [place] # 0.6 K/mm3 (0.0-0.8) 08/06/17 03:50 Eos # 0.1 K/mm3 (0.0-0.4) 08/06/17 03:50 Baso # 0.0 K/mm3 (0.0-0.1) 08/06/17 03:50 Add Manual Diff Complete 07/30/17 16:52 Total Counted 100 07/30/17 16:52 Seg Neutrophils % 80.9 % (40.0-70.0) H 08/06/17 03:50 Seg Neuts % (Manual) 89.0 % (40.0-70.0) H 07/30/17 16:52 Band Neutrophils % 0 % 07/30/17 16:52 Lymphocytes % (Manual) 7.0 % (13.4-35.0) L 07/30/17 16:52 Reactive Lymphs % (Man) 0 % 07/30/17 16:52 Monocytes % (Manual) 4.0 % (0.0-7.3) 07/30/17 16:52 Eosinophils % (Manual) 0 % (0.0-4.3) 07/30/17 16:52 Basophils % (Manual) 0 % (0.0-1.8) 07/30/17 16:52 Metamyelocytes % 0 % 07/30/17 16:52 Myelocytes % 0 % 07/30/17 16:52 Promyelocytes % 0 % 07/30/17 16:52 Blast Cells % 0 % 07/30/17 16:52 Nucleated RBC % Not Reportable 07/30/17 16:52 Seg Neutrophils # 9.1 K/mm3 (1.8-7.7) H 08/06/17 03:50 Seg Neutrophils # Man 20.4 K/mm3 (1.8-7.7) H 07/30/17 16:52 Band Neutrophils # 0.0 K/mm3 07/30/17 16:52 Lymphocytes # (Manual) 1.6 K/mm3 (1.2-5.4) 07/30/17 16:52 Abs React Lymphs (Man) 0.0 K/mm3 07/30/17 16:52 Monocytes # (Manual) 0.9 K/mm3 (0.0-0.8) H 07/30/17 16:52 Eosinophils # (Manual) 0.0 K/mm3 (0.0-0.4) 07/30/17 16:52 Basophils # (Manual) 0.0 K/mm3 (0.0-0.1) 07/30/17 16:52 Metamyelocytes # 0.0 K/mm3 07/30/17 16:52 Myelocytes # 0.0 K/mm3 07/30/17 16:52 Promyelocytes # 0.0 K/mm3 07/30/17 16:52 Blast Cells # 0.0 K/mm3 07/30/17 16:52 WBC Morphology Not Reportable 07/30/17 16:52 Hypersegmented Neuts Not Reportable 07/30/17 16:52 Hyposegmented Neuts Not Reportable 07/30/17 16:52 Hypogranular Neuts Not Reportable 07/30/17 16:52 Smudge Cells Not Reportable 07/30/17 16:52 Toxic Granulation Not Reportable 07/30/17 16:52 Toxic Vacuolation Not Reportable 07/30/17 16:52 Dohle Bodies Not Reportable 07/30/17 16:52 Pelger-Huet Anomaly Not Reportable 07/30/17 16:52 Zach Rods Not Reportable 07/30/17 16:52 Platelet Estimate Consistent w auto 07/30/17 16:52 Clumped Platelets Not Reportable 07/30/17 16:52 Plt Clumps, EDTA Not Reportable 07/30/17 16:52 Large Platelets 1+ 07/30/17 16:52 Giant Platelets Not Reportable 07/30/17 16:52 Platelet Satelliting Not Reportable 07/30/17 16:52 Plt Morphology Comment Not Reportable 07/30/17 16:52 RBC Morphology Not Reportable 07/30/17 16:52 Dimorphic RBCs Not Reportable 07/30/17 16:52 Polychromasia Not Reportable 07/30/17 16:52 Hypochromasia 1+ 07/30/17 16:52 Poikilocytosis 1+ 07/30/17 16:52 Anisocytosis 1+ 07/30/17 16:52 Microcytosis Not Reportable 07/30/17 16:52 Macrocytosis Not Reportable 07/30/17 16:52 Spherocytes Not Reportable 07/30/17 16:52 Pappenheimer Bodies Not Reportable 07/30/17 16:52 Sickle Cells Not Reportable 07/30/17 16:52 Target Cells Not Reportable 07/30/17 16:52 Tear Drop Cells Not Reportable 07/30/17 16:52 Ovalocytes Not Reportable 07/30/17 16:52 Helmet Cells Not Reportable 07/30/17 16:52 [place] Bodies Not Reportable 07/30/17 16:52 [place] Rings Not Reportable 07/30/17 16:52 [place] Cells Not Reportable 07/30/17 16:52 Bite Cells Not Reportable 07/30/17 16:52 Crenated Cell Not Reportable 07/30/17 16:52 Elliptocytes Not Reportable 07/30/17 16:52 Acanthocytes (Spur) Not Reportable 07/30/17 16:52 Rouleaux Not Reportable 07/30/17 16:52 Hemoglobin C Crystals Not Reportable 07/30/17 16:52 Schistocytes Not Reportable 07/30/17 16:52 Malaria parasites Not Reportable 07/30/17 16:52 He Bodies Not Reportable 07/30/17 16:52 Hem Pathologist Commnt No 07/30/17 16:52 PT 14.1 Sec. (12.2-14.9) 08/06/17 13:14 INR 1.04 (0.87-1.13) 08/06/17 13:14 APTT 53.6 Sec. (24.2-36.6) H 07/31/17 04:00 Fibrinogen 651 mg/dl (211-480) H 07/30/17 16:55 D-Dimer 1885.58 ng/mlDDU (0-234) H 07/30/17 16:55 Factor VIII:C Activity 268 % (50-180) H 08/01/17 17:40 POC ABG pH 7.475 (7.35-7.45) H 08/06/17 04:33 ABG pH 7.327 pH Units (7.350-7.450) L 07/29/17 01:41 POC ABG pCO2 36.7 (35-45) 08/06/17 04:33 ABG pCO2 TNR 07/29/17 01:41 POC ABG pO2 93 (80-105) 08/06/17 04:33 ABG pO2 TNR 07/29/17 01:41 POC ABG HCO3 27.0 08/06/17 04:33 ABG HCO3 TNR 07/29/17 01:41 POC ABG Total CO2 28 08/06/17 04:33 POC ABG O2 Sat 98 08/06/17 04:33 ABG O2 Saturation TNR 07/29/17 01:41 ABG O2 Content TNR 07/29/17 01:41 POC ABG Base Excess 3 08/06/17 04:33 ABG Base Excess TNR 07/29/17 01:41 ABG Hemoglobin TNR 07/29/17 01:41 ABG Carboxyhemoglobin TNR 07/29/17 01:41 ABG Methemoglobin TNR 07/29/17 01:41 VBG pH 7.327 (7.320-7.420) 07/29/17 01:41 Oxyhemoglobin TNR 07/29/17 01:41 FiO2 28 % 08/06/17 04:33 Sodium 140 mmol/L (137-145) 08/05/17 04:00 Potassium 3.6 mmol/L (3.6-5.0) 08/05/17 04:00 Chloride 104.4 mmol/L (98-107) 08/05/17 04:00 Carbon Dioxide 25 mmol/L (22-30) 08/05/17 04:00 Anion Gap 14 mmol/L 08/05/17 04:00 BUN 8 mg/dL (7-17) 08/05/17 04:00 Creatinine 0.3 mg/dL (0.7-1.2) L 08/05/17 04:00 Estimated GFR > 60 ml/min 08/05/17 04:00 BUN/Creatinine Ratio 27 % 08/05/17 04:00 Glucose 186 mg/dL (65-100) H 08/05/17 04:00 POC Glucose 190 (70-105) H 08/06/17 11:50 Lactic Acid 1.50 mmol/L (0.7-2.0) 07/31/17 10:45 Calcium 8.2 mg/dL (8.4-10.2) L 08/05/17 04:00 Iron 17 ug/dL (37-170) L 08/01/17 17:40 TIBC 103 mcg/dL (250-450) L 08/01/17 17:40 Total Bilirubin 0.40 mg/dL (0.1-1.2) 08/04/17 03:53 AST 29 units/L (5-40) 08/04/17 03:53 ALT 22 units/L (7-56) 08/04/17 03:53 Alkaline Phosphatase 55 units/L (35-129) 08/04/17 03:53 Lactate Dehydrogenase 148 units/L (91-180) 08/01/17 17:40 Total Creatine Kinase 179 units/L (30-135) H 07/29/17 10:05 CK-MB (CK-2) 3.0 ng/mL (0.0-4.0) 07/29/17 10:05 CK-MB (CK-2) Rel Index 1.6 (0-4) 07/29/17 10:05 Troponin T 0.093 ng/mL (0.00-0.029) H 07/29/17 10:05 Total Protein 5.1 g/dL (6.3-8.2) L 08/04/17 03:53 Albumin 2.2 g/dL (3.9-5) L 08/04/17 03:53 Albumin/Globulin Ratio 0.8 % 08/04/17 03:53 Triglycerides 115 mg/dL (2-149) 07/29/17 01:41 Cholesterol 50 mg/dL (50-199) 07/29/17 01:41 LDL Cholesterol Direct 14 mg/dL (50-130) L 07/29/17 01:41 HDL Cholesterol 13 mg/dL (40-59) L 07/29/17 01:41 Cholesterol/HDL Ratio 3.84 % 07/29/17 01:41 Vitamin B12 1830 pg/mL (211-911) H 08/01/17 17:40 Urine Color Yellow (Yellow) 07/29/17 Unknown Urine Turbidity Turbid (Clear) 07/29/17 Unknown Urine pH 5.0 (5.0-7.0) 07/29/17 Unknown Ur Specific [place] 1.024 (1.003-1.030) 07/29/17 Unknown Urine Protein 30 mg/dl mg/dL (Negative) 07/29/17 Unknown Urine Glucose (UA) >=500 mg/dL (Negative) 07/29/17 Unknown Urine Ketones Neg mg/dL (Negative) 07/29/17 Unknown Urine Blood Lg (Negative) 07/29/17 Unknown Urine Nitrite Neg (Negative) 07/29/17 Unknown Urine Bilirubin Neg (Negative) 07/29/17 Unknown Urine Urobilinogen < 2.0 mg/dL (<2.0) 07/29/17 Unknown Ur Leukocyte Esterase Mod (Negative) 07/29/17 Unknown Urine WBC (Auto) 169.0 /HPF (0.0-6.0) H 07/29/17 Unknown Urine RBC (Auto) > 182.0 /HPF (0.0-6.0) 07/29/17 Unknown U Epithel Cells (Auto) 9.0 /HPF (0-13.0) 07/29/17 Unknown Urine Bacteria (Auto) 4+ /HPF (Negative) 07/29/17 Unknown Urine WBC Clumps 3+ /HPF 07/29/17 Unknown Urine Mucus 1+ /HPF 07/29/17 Unknown Ur Yeast w Hyphae 1+ /HPF 07/29/17 Unknown Urine Yeast (Budding) 3+ /HPF 07/29/17 Unknown Vancomycin Trough 12.3 ug/mL (5.0-20.0) 08/01/17 15:29 Blood Type O POSITIVE 08/03/17 08:03 Antibody Screen Negative 08/03/17 08:03 Crossmatch See Detail 08/03/17 08:03
--- NOTE | 2017-08-06 22:02 | Physician Progress Note ---
SUBJECTIVE: The patient resting in bed. PHYSICAL EXAMINATION: VITAL SIGNS: Stable. CHEST: On chest auscultation, coarse on the vent. HEART: Regular. ABDOMEN: Soft. Bowel sounds active. EXTREMITIES: Show contractures with trace edema. NEUROLOGIC: No focal deficit, but the patient is not able to follow commands at this time. IMPRESSION: This -Armenian female with pneumonia, adult failure to thrive and debility and anemia of chronic disease, hypercoagulable on Coumadin and acute respiratory. RECOMMENDATION: Supportive care, nutritional support, monitor labs and adjust as necessary. Continue physical therapy and continue nutrition. Continue trach and vent management, replacement and transfusion when needed. Continue ____, JOB# [id number] ACO/NTS
[2017-08-07] MEDS: HumaLOG SUB-Q SCH ×4 (01:21→18:13)
[2017-08-07] MEDS: LANTUS SUB-Q SCH (01:21)
[2017-08-07] MEDS: DUONEB *Not for PRN Use IH SCH ×3 (09:02→19:40)
[2017-08-07] MEDS: SODIUM CHLORIDE FLUSH SYRINGE 10 ML IV SCH (09:25)
[2017-08-07] MEDS: PEPCID PO SCH (09:25)
[2017-08-07] MEDS: PROAMATINE PO SCH ×2 (09:26→13:16)
[2017-08-07] MEDS: ROBINUL PO SCH (09:26)
[2017-08-07 09:50] LABS: INR 1.02 (0.87-1.13)
--- NOTE | 2017-08-07 11:57 | Progress Note ---
Assessment and Plan Imp: 1. LLL HCAP, POA 2. Probable UTI, POA 3. Severe sepsis w/ shock 4. DYLLAN, better 5. Hypernatremia, better 6. Anoxic encephalopathy 7. Hx of Dilated CMP Rec: 1. Cont. Midodrine 2. T-piece 3. Completed ~ 7 day course of Zosyn vs. Pseudomonas from sputum and probable UTI 4. TFs, supportive, SCDs; stopped IVFs 5. Okay pulm-christensen to d/c back to [facility] No family present Subjective Date of service: 08/07/17 Principal diagnosis: A/C respiratory failure Interval history: No events. Tolerating Tpiece x 72 hours. Non-verbal. BP better. Active Medications Acetaminophen (Tylenol) 650 mg OH Q4H PRN PRN Reason: Pain MILD(1-3)/Fever >100.5/JOLLY Last Admin: 08/01/17 20:11 Dose: 650 mg Albuterol/Ipratropium (Duoneb *Not For Prn Use*) 1 ampul IH TIDRT [facility] Last Admin: 08/07/17 14:05 Dose: 1 ampul Lipase/Protease/Amylase (Pancreaze Dr 10,500 Unit) 1 each FEEDTUBE PRN PRN PRN Reason: For Clogged Feeding Tube Dextrose (D50w (25gm) Syringe) 50 ml IV PRN PRN PRN Reason: Hypoglycemia Famotidine (Pepcid) 20 mg PO BID [facility] Last Admin: 08/07/17 09:25 Dose: 20 mg Glycopyrrolate (Robinul) 1 mg PO BID [facility] Last Admin: 08/07/17 09:26 Dose: 1 mg Norepinephrine (Levophed Drip 4 Mg/Ns 250 Ml) 4 mg in 250 mls @ 7.5 mls/hr IV TITR [facility]; Protocol Insulin Glargine (Lantus) 10 units SUB-Q QHS [facility] Last Admin: 08/07/17 01:21 Dose: 10 units Insulin Human Lispro (Humalog) 0 unit SUB-Q Q6HR [facility]; Protocol Last Admin: 08/07/17 13:15 Dose: 4 unit Midodrine (Proamatine) 10 mg PO TID [facility] Last Admin: 08/07/17 13:16 Dose: 10 mg Ondansetron HCl (Zofran) 4 mg IV Q8H PRN PRN Reason: Nausea And Vomiting Simple Syrup (Simple Syrup) 15 ml FEEDTUBE PRN PRN PRN Reason: Hypoglycemia Simple Syrup (Simple Syrup) 30 ml FEEDTUBE PRN PRN PRN Reason: Hypoglycemia Sodium Bicarbonate (Sodium Bicarbonate) 325 mg FEEDTUBE PRN PRN PRN Reason: For Clogged Feeding Tube Sodium Chloride (Sodium Chloride Flush Syringe 10 Ml) 10 ml IV BID TIMMY Last Admin: 08/07/17 09:25 Dose: 10 ml Sodium Chloride (Sodium Chloride Flush Syringe 10 Ml) 10 ml IV PRN PRN PRN Reason: LINE FLUSH Warfarin Sodium (Coumadin) 7.5 mg PO QDAY TIMMY; Protocol Warfarin Sodium (Coumadin) 10 mg PO 3XW TIMMY; Protocol Objective Vital Signs - 12hr 08/07/17 08/07/17 08/07/17 00:00 00:15 00:31 Temperature 98.5 F Pulse Rate 98 H 72 71 Pulse Rate [ Anterior Throughout] Respiratory 12 27 H 21 Rate Respiratory Rate [Anterior Throughout] Blood Pressure 123/69 127/59 131/66 O2 Sat by Pulse 96 97 99 Oximetry O2 Sat by Pulse Oximetry [ Changed] 08/07/17 08/07/17 08/07/17 00:45 01:01 01:15 Temperature Pulse Rate 72 67 72 Pulse Rate [ Anterior Throughout] Respiratory 23 29 H 30 H Rate Respiratory Rate [Anterior Throughout] Blood Pressure 131/66 138/66 138/66 O2 Sat by Pulse 96 95 96 Oximetry O2 Sat by Pulse Oximetry [ Changed] 08/07/17 08/07/17 08/07/17 01:31 01:45 02:01 Temperature Pulse Rate 70 69 64 Pulse Rate [ Anterior Throughout] Respiratory 25 H 26 H 24 Rate Respiratory Rate [Anterior Throughout] Blood Pressure 138/70 138/70 126/47 O2 Sat by Pulse 97 98 99 Oximetry O2 Sat by Pulse Oximetry [ Changed] 08/07/17 08/07/17 08/07/17 02:15 02:31 02:45 Temperature Pulse Rate 67 87 72 Pulse Rate [ Anterior Throughout] Respiratory 27 H 23 26 H Rate Respiratory Rate [Anterior Throughout] Blood Pressure 126/47 126/81 126/81 O2 Sat by Pulse 100 98 100 Oximetry O2 Sat by Pulse Oximetry [ Changed] 08/07/17 08/07/17 08/07/17 03:01 03:14 03:15 Temperature 98.8 F Pulse Rate 76 74 Pulse Rate [ Anterior Throughout] Respiratory 21 27 H Rate Respiratory Rate [Anterior Throughout] Blood Pressure 120/57 120/57 O2 Sat by Pulse 100 100 Oximetry O2 Sat by Pulse Oximetry [ Changed] 08/07/17 08/07/17 08/07/17 03:31 03:45 04:00 Temperature Pulse Rate 75 76 Pulse Rate [ Anterior Throughout] Respiratory 28 H 29 H 25 H Rate Respiratory Rate [Anterior Throughout] Blood Pressure 115/58 115/58 O2 Sat by Pulse 98 98 100 Oximetry O2 Sat by Pulse Oximetry [ Changed] 08/07/17 08/07/17 08/07/17 04:01 04:15 04:31 Temperature Pulse Rate 66 71 74 Pulse Rate [ Anterior Throughout] Respiratory 30 H 32 H 25 H Rate Respiratory Rate [Anterior Throughout] Blood Pressure 90/42 90/42 112/57 O2 Sat by Pulse 97 94 99 Oximetry O2 Sat by Pulse Oximetry [ Changed] 08/07/17 08/07/17 08/07/17 04:45 05:00 05:15 Temperature Pulse Rate 68 71 Pulse Rate [ Anterior Throughout] Respiratory 24 24 Rate Respiratory Rate [Anterior Throughout] Blood Pressure 112/57 109/64 109/64 O2 Sat by Pulse 99 100 100 Oximetry O2 Sat by Pulse Oximetry [ Changed] 08/07/17 08/07/17 08/07/17 05:31 05:45 06:01 Temperature Pulse Rate 85 74 81 Pulse Rate [ Anterior Throughout] Respiratory 29 H 23 18 Rate Respiratory Rate [Anterior Throughout] Blood Pressure 109/64 109/64 118/70 O2 Sat by Pulse 98 100 Oximetry O2 Sat by Pulse Oximetry [ Changed] 08/07/17 08/07/17 08/07/17 06:15 06:30 06:45 Temperature Pulse Rate 80 78 78 Pulse Rate [ Anterior Throughout] Respiratory 8 L 27 H 14 Rate Respiratory Rate [Anterior Throughout] Blood Pressure 118/70 122/74 122/74 O2 Sat by Pulse 100 98 97 Oximetry O2 Sat by Pulse Oximetry [ Changed] 08/07/17 08/07/17 08/07/17 07:00 07:15 07:30 Temperature Pulse Rate 79 75 70 Pulse Rate [ Anterior Throughout] Respiratory 26 H 25 H 23 Rate Respiratory Rate [Anterior Throughout] Blood Pressure 131/73 122/74 126/69 O2 Sat by Pulse 98 97 98 Oximetry O2 Sat by Pulse Oximetry [ Changed] 08/07/17 08/07/17 08/07/17 07:45 08:00 08:15 Temperature 98.2 F Pulse Rate 72 68 76 Pulse Rate [ Anterior Throughout] Respiratory 23 23 25 H Rate Respiratory Rate [Anterior Throughout] Blood Pressure 131/73 114/59 126/69 O2 Sat by Pulse 99 99 97 Oximetry O2 Sat by Pulse Oximetry [ Changed] 08/07/17 08/07/17 08/07/17 08:30 08:45 09:00 Temperature Pulse Rate 75 75 85 Pulse Rate [ Anterior Throughout] Respiratory 26 H 24 22 Rate Respiratory Rate [Anterior Throughout] Blood Pressure 101/62 114/59 120/71 O2 Sat by Pulse 96 98 100 Oximetry O2 Sat by Pulse Oximetry [ Changed] 08/07/17 08/07/17 08/07/17 09:02 09:14 09:15 Temperature Pulse Rate 84 Pulse Rate [ 88 87 Anterior Throughout] Respiratory 24 Rate Respiratory 26 H 24 Rate [Anterior Throughout] Blood Pressure 120/71 O2 Sat by Pulse 99 Oximetry O2 Sat by Pulse 99 Oximetry [ Changed] 08/07/17 08/07/17 08/07/17 09:30 09:45 10:00 Temperature Pulse Rate 100 H 98 H 87 Pulse Rate [ Anterior Throughout] Respiratory 23 25 H 27 H Rate Respiratory Rate [Anterior Throughout] Blood Pressure 130/76 130/76 141/78 O2 Sat by Pulse 99 97 96 Oximetry O2 Sat by Pulse Oximetry [ Changed] 08/07/17 08/07/17 08/07/17 10:15 10:27 10:30 Temperature Pulse Rate 90 84 Pulse Rate [ Anterior Throughout] Respiratory 21 18 Rate Respiratory Rate [Anterior Throughout] Blood Pressure 141/78 144/75 O2 Sat by Pulse 99 96 100 Oximetry O2 Sat by Pulse Oximetry [ Changed] 08/07/17 08/07/17 08/07/17 10:45 11:00 11:22 Temperature Pulse Rate 86 87 Pulse Rate [ Anterior Throughout] Respiratory 16 22 27 H Rate Respiratory Rate [Anterior Throughout] Blood Pressure 144/75 147/80 O2 Sat by Pulse 99 99 Oximetry O2 Sat by Pulse Oximetry [ Changed] Constitutional: no acute distress Eyes: non-icteric ENT: oropharynx dry Neck: supple, other (tracheostomy present) Effort: normal Ascultation: Bilateral: other (coarse BS) Cardiovascular: regular rate and rhythm (no mrg) Gastrointestinal: normoactive bowel sounds, soft, non-tender, non-distended Integumentary: normal Extremities: no cyanosis, other (contraction deformities present. Edema present.) Neurologic: other (moving more when stimulated, nothing purposeful) Psychiatric: other (unable to assess) CBC and BMP: 08/06/17 03:50 08/05/17 04:00 ABG, PT/INR, D-dimer: ABG POC ABG pH 7.475 (7.35-7.45) H 08/06/17 04:33 ABG pH 7.327 pH Units (7.350-7.450) L 07/29/17 01:41 POC ABG pCO2 36.7 (35-45) 08/06/17 04:33 ABG pCO2 TNR 07/29/17 01:41 POC ABG pO2 93 (80-105) 08/06/17 04:33 ABG pO2 TNR 07/29/17 01:41 POC ABG HCO3 27.0 08/06/17 04:33 POC ABG Total CO2 28 08/06/17 04:33 POC ABG O2 Sat 98 08/06/17 04:33 ABG O2 Saturation TNR 07/29/17 01:41 PT/INR, D-dimer PT 13.9 Sec. (12.2-14.9) 08/07/17 09:13 INR 1.02 (0.87-1.13) 08/07/17 09:13 D-Dimer 1885.58 ng/mlDDU (0-234) H 07/30/17 16:55 Abnormal lab findings: Abnormal Labs 07/29/17 07/29/17 07/29/17 01:41 01:41 01:41 WBC 21.0 H RBC Hgb 9.7 L Hct MCV MCH 24 L RDW 19.0 H Lymph % (Auto) [place] % (Auto) Seg Neutrophils % Seg Neuts % (Manual) 77.0 H Lymphocytes % (Manual) 4.5 L Nucleated RBC % 1.0 H Seg Neutrophils # Seg Neutrophils # Man 16.2 H Lymphocytes # (Manual) 0.9 L Monocytes # (Manual) PT 54.1 H INR 5.49 H* APTT 55.7 H Fibrinogen D-Dimer Factor VIII:C Activity POC ABG pH ABG pH POC ABG pCO2 POC ABG pO2 Sodium Potassium Chloride Carbon Dioxide BUN Creatinine Glucose POC Glucose Lactic Acid 9.30 H* Calcium Iron TIBC Total Creatine Kinase Troponin T Total Protein Albumin LDL Cholesterol Direct HDL Cholesterol Vitamin B12 Urine WBC (Auto) Vancomycin Trough Crossmatch 07/29/17 07/29/17 07/29/17 01:41 01:41 02:45 WBC RBC Hgb Hct MCV MCH RDW Lymph % (Auto) [place] % (Auto) Seg Neutrophils % Seg Neuts % (Manual) Lymphocytes % (Manual) Nucleated RBC % Seg Neutrophils # Seg Neutrophils # Man Lymphocytes # (Manual) Monocytes # (Manual) PT INR APTT Fibrinogen D-Dimer Factor VIII:C Activity POC ABG pH ABG pH 7.327 L POC ABG pCO2 32.9 L POC ABG pO2 74 L Sodium 154 H Potassium Chloride 109.8 H Carbon Dioxide BUN 43 H Creatinine 1.3 H Glucose 682 H* POC Glucose Lactic Acid Calcium Iron TIBC Total Creatine Kinase Troponin T 0.209 H* Total Protein Albumin 2.0 L LDL Cholesterol Direct 14 L HDL Cholesterol 13 L Vitamin B12 Urine WBC (Auto) Vancomycin Trough Crossmatch 07/29/17 07/29/17 07/29/17 03:19 04:11 04:11 WBC RBC Hgb Hct MCV MCH RDW Lymph % (Auto) [place] % (Auto) Seg Neutrophils % Seg Neuts % (Manual) Lymphocytes % (Manual) Nucleated RBC % Seg Neutrophils # Seg Neutrophils # Man Lymphocytes # (Manual) Monocytes # (Manual) PT INR APTT Fibrinogen D-Dimer Factor VIII:C Activity POC ABG pH ABG pH POC ABG pCO2 POC ABG pO2 Sodium Potassium Chloride Carbon Dioxide BUN Creatinine Glucose POC Glucose Lactic Acid 8.30 H* 7.50 H* Calcium Iron TIBC Total Creatine Kinase Troponin T 0.169 H* Total Protein Albumin LDL Cholesterol Direct HDL Cholesterol Vitamin B12 Urine WBC (Auto) Vancomycin Trough Crossmatch 07/29/17 07/29/17 07/29/17 07:50 07:50 09:46 WBC RBC Hgb Hct MCV MCH RDW Lymph % (Auto) [place] % (Auto) Seg Neutrophils % Seg Neuts % (Manual) Lymphocytes % (Manual) Nucleated RBC % Seg Neutrophils # Seg Neutrophils # Man Lymphocytes # (Manual) Monocytes # (Manual) PT INR APTT Fibrinogen D-Dimer Factor VIII:C Activity POC ABG pH ABG pH POC ABG pCO2 POC ABG pO2 Sodium Potassium Chloride Carbon Dioxide BUN Creatinine Glucose POC Glucose 380 H Lactic Acid 3.30 H* Calcium Iron TIBC Total Creatine Kinase 172 H Troponin T 0.111 H* D Total Protein Albumin LDL Cholesterol Direct HDL Cholesterol Vitamin B12 Urine WBC (Auto) Vancomycin Trough Crossmatch 07/29/17 07/29/17 07/29/17 10:05 10:05 12:45 WBC RBC Hgb Hct MCV MCH RDW Lymph % (Auto) [place] % (Auto) Seg Neutrophils % Seg Neuts % (Manual) Lymphocytes % (Manual) Nucleated RBC % Seg Neutrophils # Seg Neutrophils # Man Lymphocytes # (Manual) Monocytes # (Manual) PT INR APTT Fibrinogen D-Dimer Factor VIII:C Activity POC ABG pH ABG pH POC ABG pCO2 POC ABG pO2 Sodium Potassium Chloride Carbon Dioxide BUN Creatinine Glucose POC Glucose 404 H Lactic Acid 2.30 H* Calcium Iron TIBC Total Creatine Kinase 179 H Troponin T 0.093 H Total Protein Albumin LDL Cholesterol Direct HDL Cholesterol Vitamin B12 Urine WBC (Auto) Vancomycin Trough Crossmatch 07/29/17 07/29/17 07/29/17 17:32 19:23 Unknown WBC RBC Hgb Hct MCV MCH RDW Lymph % (Auto) [place] % (Auto) Seg Neutrophils % Seg Neuts % (Manual) Lymphocytes % (Manual) Nucleated RBC % Seg Neutrophils # Seg Neutrophils # Man Lymphocytes # (Manual) Monocytes # (Manual) PT INR APTT Fibrinogen D-Dimer Factor VIII:C Activity POC ABG pH ABG pH POC ABG pCO2 POC ABG pO2 Sodium 156 H Potassium 2.6 L* D Chloride 119.9 H Carbon Dioxide BUN 25 H Creatinine Glucose 275 H POC Glucose 343 H Lactic Acid Calcium 7.7 L Iron TIBC Total Creatine Kinase Troponin T Total Protein Albumin LDL Cholesterol Direct HDL Cholesterol Vitamin B12 Urine WBC (Auto) 169.0 H Vancomycin Trough Crossmatch 07/30/17 07/30/17 07/30/17 00:02 05:33 05:40 WBC 23.9 H RBC 3.51 L Hgb 8.3 L Hct 26.8 L MCV 77 L MCH 24 L RDW 18.3 H Lymph % (Auto) [place] % (Auto) Seg Neutrophils % Seg Neuts % (Manual) 84.0 H Lymphocytes % (Manual) 7.0 L Nucleated RBC % Seg Neutrophils # Seg Neutrophils # Man 20.1 H Lymphocytes # (Manual) Monocytes # (Manual) PT INR APTT Fibrinogen D-Dimer Factor VIII:C Activity POC ABG pH ABG pH POC ABG pCO2 POC ABG pO2 Sodium Potassium Chloride Carbon Dioxide BUN Creatinine Glucose POC Glucose 186 H 246 H Lactic Acid Calcium Iron TIBC Total Creatine Kinase Troponin T Total Protein Albumin LDL Cholesterol Direct HDL Cholesterol Vitamin B12 Urine WBC (Auto) Vancomycin Trough Crossmatch 07/30/17 07/30/17 07/30/17 05:40 06:13 11:53 WBC RBC Hgb Hct MCV MCH RDW Lymph % (Auto) [place] % (Auto) Seg Neutrophils % Seg Neuts % (Manual) Lymphocytes % (Manual) Nucleated RBC % Seg Neutrophils # Seg Neutrophils # Man Lymphocytes # (Manual) Monocytes # (Manual) PT INR APTT Fibrinogen D-Dimer Factor VIII:C Activity POC ABG pH 7.461 H ABG pH POC ABG pCO2 33.9 L POC ABG pO2 226 H Sodium 156 H Potassium 3.2 L D Chloride 117.5 H Carbon Dioxide BUN 19 H Creatinine 0.6 L Glucose 212 H POC Glucose 166 H Lactic Acid Calcium 7.8 L Iron TIBC Total Creatine Kinase Troponin T Total Protein Albumin LDL Cholesterol Direct HDL Cholesterol Vitamin B12 Urine WBC (Auto) Vancomycin Trough Crossmatch 07/30/17 07/30/17 07/30/17 15:54 16:52 16:55 WBC 22.9 H RBC 3.29 L Hgb 7.8 L Hct 25.1 L MCV 76 L MCH 24 L RDW 18.2 H Lymph % (Auto) [place] % (Auto) Seg Neutrophils % Seg Neuts % (Manual) 89.0 H Lymphocytes % (Manual) 7.0 L Nucleated RBC % Seg Neutrophils # Seg Neutrophils # Man 20.4 H Lymphocytes # (Manual) Monocytes # (Manual) 0.9 H PT INR APTT Fibrinogen D-Dimer Factor VIII:C Activity POC ABG pH ABG pH POC ABG pCO2 POC ABG pO2 Sodium 154 H Potassium 3.5 L Chloride 122.1 H Carbon Dioxide BUN Creatinine 0.5 L Glucose 180 H POC Glucose Lactic Acid Calcium 7.6 L Iron TIBC Total Creatine Kinase Troponin T Total Protein Albumin LDL Cholesterol Direct HDL Cholesterol Vitamin B12 Urine WBC (Auto) Vancomycin Trough 29.7 H Crossmatch 07/30/17 07/30/17 07/30/17 16:55 17:06 21:00 WBC RBC Hgb Hct MCV MCH RDW Lymph % (Auto) [place] % (Auto) Seg Neutrophils % Seg Neuts % (Manual) Lymphocytes % (Manual) Nucleated RBC % Seg Neutrophils # Seg Neutrophils # Man Lymphocytes # (Manual) Monocytes # (Manual) PT 44.7 H INR 4.33 H APTT 62.8 H* Fibrinogen 651 H D-Dimer 1885.58 H Factor VIII:C Activity POC ABG pH ABG pH POC ABG pCO2 POC ABG pO2 Sodium 150 H Potassium 3.2 L Chloride 114.3 H Carbon Dioxide BUN Creatinine 0.5 L Glucose 167 H POC Glucose 213 H Lactic Acid Calcium 7.7 L Iron TIBC Total Creatine Kinase Troponin T Total Protein Albumin LDL Cholesterol Direct HDL Cholesterol Vitamin B12 Urine WBC (Auto) Vancomycin Trough Crossmatch 07/30/17 07/31/17 07/31/17 Unknown 00:29 04:00 WBC RBC Hgb Hct MCV MCH RDW Lymph % (Auto) [place] % (Auto) Seg Neutrophils % Seg Neuts % (Manual) Lymphocytes % (Manual) Nucleated RBC % Seg Neutrophils # Seg Neutrophils # Man Lymphocytes # (Manual) Monocytes # (Manual) PT 57.1 H 33.9 H INR 5.87 H* 3.08 H APTT 53.6 H Fibrinogen D-Dimer Factor VIII:C Activity POC ABG pH ABG pH POC ABG pCO2 POC ABG pO2 Sodium Potassium Chloride Carbon Dioxide BUN Creatinine Glucose POC Glucose 198 H Lactic Acid Calcium Iron TIBC Total Creatine Kinase Troponin T Total Protein Albumin LDL Cholesterol Direct HDL Cholesterol Vitamin B12 Urine WBC (Auto) Vancomycin Trough Crossmatch 07/31/17 07/31/17 07/31/17 04:00 04:00 05:51 WBC 17.2 H RBC 3.14 L Hgb 7.5 L Hct 23.9 L MCV 76 L MCH 24 L RDW 18.3 H Lymph % (Auto) 9.1 L [place] % (Auto) Seg Neutrophils % 88.1 H Seg Neuts % (Manual) Lymphocytes % (Manual) Nucleated RBC % Seg Neutrophils # 15.2 H Seg Neutrophils # Man Lymphocytes # (Manual) Monocytes # (Manual) PT INR APTT Fibrinogen D-Dimer Factor VIII:C Activity POC ABG pH 7.538 H ABG pH POC ABG pCO2 25.6 L POC ABG pO2 118 H Sodium 147 H Potassium Chloride 113.9 H Carbon Dioxide BUN Creatinine 0.4 L Glucose 175 H POC Glucose Lactic Acid Calcium 7.6 L Iron TIBC Total Creatine Kinase Troponin T Total Protein Albumin LDL Cholesterol Direct HDL Cholesterol Vitamin B12 Urine WBC (Auto) Vancomycin Trough Crossmatch 07/31/17 07/31/17 07/31/17 05:51 10:45 11:25 WBC RBC Hgb Hct MCV MCH RDW Lymph % (Auto) [place] % (Auto) Seg Neutrophils % Seg Neuts % (Manual) Lymphocytes % (Manual) Nucleated RBC % Seg Neutrophils # Seg Neutrophils # Man Lymphocytes # (Manual) Monocytes # (Manual) PT INR APTT Fibrinogen D-Dimer Factor VIII:C Activity POC ABG pH ABG pH POC ABG pCO2 POC ABG pO2 Sodium Potassium 3.3 L Chloride 108.4 H Carbon Dioxide BUN Creatinine 0.4 L Glucose 139 H POC Glucose 176 H 147 H Lactic Acid Calcium 7.6 L Iron TIBC Total Creatine Kinase Troponin T Total Protein Albumin LDL Cholesterol Direct HDL Cholesterol Vitamin B12 Urine WBC (Auto) Vancomycin Trough Crossmatch 07/31/17 08/01/17 08/01/17 17:46 00:01 05:07 WBC RBC Hgb Hct MCV MCH RDW Lymph % (Auto) [place] % (Auto) Seg Neutrophils % Seg Neuts % (Manual) Lymphocytes % (Manual) Nucleated RBC % Seg Neutrophils # Seg Neutrophils # Man Lymphocytes # (Manual) Monocytes # (Manual) PT INR APTT Fibrinogen D-Dimer Factor VIII:C Activity POC ABG pH ABG pH POC ABG pCO2 POC ABG pO2 Sodium Potassium Chloride Carbon Dioxide BUN Creatinine Glucose POC Glucose 222 H 240 H 195 H Lactic Acid Calcium Iron TIBC Total Creatine Kinase Troponin T Total Protein Albumin LDL Cholesterol Direct HDL Cholesterol Vitamin B12 Urine WBC (Auto) Vancomycin Trough Crossmatch 08/01/17 08/01/17 08/01/17 05:46 06:38 06:38 WBC 11.7 H RBC 3.00 L Hgb 7.1 L Hct 22.6 L MCV 75 L MCH 24 L RDW 18.4 H Lymph % (Auto) 12.8 L [place] % (Auto) Seg Neutrophils % 82.5 H Seg Neuts % (Manual) Lymphocytes % (Manual) Nucleated RBC % Seg Neutrophils # 9.7 H Seg Neutrophils # Man Lymphocytes # (Manual) Monocytes # (Manual) PT INR APTT Fibrinogen D-Dimer Factor VIII:C Activity POC ABG pH 7.491 H ABG pH POC ABG pCO2 26.6 L POC ABG pO2 Sodium Potassium Chloride Carbon Dioxide BUN Creatinine 0.4 L Glucose 191 H POC Glucose Lactic Acid Calcium 7.7 L Iron TIBC Total Creatine Kinase Troponin T Total Protein Albumin LDL Cholesterol Direct HDL Cholesterol Vitamin B12 Urine WBC (Auto) Vancomycin Trough Crossmatch 08/01/17 08/01/17 08/01/17 11:47 17:40 17:40 WBC RBC Hgb Hct MCV MCH RDW Lymph % (Auto) [place] % (Auto) Seg Neutrophils % Seg Neuts % (Manual) Lymphocytes % (Manual) Nucleated RBC % Seg Neutrophils # Seg Neutrophils # Man Lymphocytes # (Manual) Monocytes # (Manual) PT 20.4 H INR 1.64 H APTT Fibrinogen D-Dimer Factor VIII:C Activity POC ABG pH ABG pH POC ABG pCO2 POC ABG pO2 Sodium Potassium Chloride Carbon Dioxide BUN Creatinine Glucose POC Glucose 289 H Lactic Acid Calcium Iron 17 L TIBC 103 L Total Creatine Kinase Troponin T Total Protein Albumin LDL Cholesterol Direct HDL Cholesterol Vitamin B12 Urine WBC (Auto) Vancomycin Trough Crossmatch 08/01/17 08/01/17 08/01/17 17:40 17:40 17:43 WBC RBC Hgb Hct MCV MCH RDW Lymph % (Auto) [place] % (Auto) Seg Neutrophils % Seg Neuts % (Manual) Lymphocytes % (Manual) Nucleated RBC % Seg Neutrophils # Seg Neutrophils # Man Lymphocytes # (Manual) Monocytes # (Manual) PT INR APTT Fibrinogen D-Dimer Factor VIII:C Activity 268 H POC ABG pH ABG pH POC ABG pCO2 POC ABG pO2 Sodium Potassium Chloride Carbon Dioxide BUN Creatinine Glucose POC Glucose 254 H Lactic Acid Calcium Iron TIBC Total Creatine Kinase Troponin T Total Protein Albumin LDL Cholesterol Direct HDL Cholesterol Vitamin B12 1830 H Urine WBC (Auto) Vancomycin Trough Crossmatch 08/01/17 08/02/17 08/02/17 23:48 03:56 04:00 WBC 12.7 H RBC 3.04 L Hgb 7.2 L Hct 22.8 L MCV 75 L MCH 24 L RDW 18.0 H Lymph % (Auto) 13.1 L [place] % (Auto) Seg Neutrophils % 81.5 H Seg Neuts % (Manual) Lymphocytes % (Manual) Nucleated RBC % Seg Neutrophils # 10.3 H Seg Neutrophils # Man Lymphocytes # (Manual) Monocytes # (Manual) PT INR APTT Fibrinogen D-Dimer Factor VIII:C Activity POC ABG pH 7.537 H ABG pH POC ABG pCO2 28.4 L POC ABG pO2 109 H Sodium Potassium Chloride Carbon Dioxide BUN Creatinine Glucose POC Glucose 248 H Lactic Acid Calcium Iron TIBC Total Creatine Kinase Troponin T Total Protein Albumin LDL Cholesterol Direct HDL Cholesterol Vitamin B12 Urine WBC (Auto) Vancomycin Trough Crossmatch 08/02/17 08/02/17 08/02/17 04:00 05:20 10:00 WBC RBC Hgb Hct MCV MCH RDW Lymph % (Auto) [place] % (Auto) Seg Neutrophils % Seg Neuts % (Manual) Lymphocytes % (Manual) Nucleated RBC % Seg Neutrophils # Seg Neutrophils # Man Lymphocytes # (Manual) Monocytes # (Manual) PT 18.6 H INR 1.46 H APTT Fibrinogen D-Dimer Factor VIII:C Activity POC ABG pH ABG pH POC ABG pCO2 POC ABG pO2 Sodium Potassium 3.0 L Chloride 109.0 H Carbon Dioxide 20 L BUN 6 L Creatinine 0.3 L Glucose 196 H POC Glucose 295 H Lactic Acid Calcium 6.3 L D Iron TIBC Total Creatine Kinase Troponin T Total Protein Albumin LDL Cholesterol Direct HDL Cholesterol Vitamin B12 Urine WBC (Auto) Vancomycin Trough Crossmatch 08/02/17 08/02/17 08/02/17 12:16 13:10 18:03 WBC RBC Hgb Hct MCV MCH RDW Lymph % (Auto) [place] % (Auto) Seg Neutrophils % Seg Neuts % (Manual) Lymphocytes % (Manual) Nucleated RBC % Seg Neutrophils # Seg Neutrophils # Man Lymphocytes # (Manual) Monocytes # (Manual) PT INR APTT Fibrinogen D-Dimer Factor VIII:C Activity POC ABG pH 7.500 H ABG pH POC ABG pCO2 31.9 L POC ABG pO2 107 H Sodium Potassium Chloride Carbon Dioxide BUN Creatinine Glucose POC Glucose 296 H 273 H Lactic Acid Calcium Iron TIBC Total Creatine Kinase Troponin T Total Protein Albumin LDL Cholesterol Direct HDL Cholesterol Vitamin B12 Urine WBC (Auto) Vancomycin Trough Crossmatch 08/03/17 08/03/17 08/03/17 00:19 03:30 03:30 WBC RBC 2.67 L Hgb 6.5 L Hct 20.2 L MCV 76 L MCH 24 L RDW 18.3 H Lymph % (Auto) [place] % (Auto) 7.4 H Seg Neutrophils % 75.9 H Seg Neuts % (Manual) Lymphocytes % (Manual) Nucleated RBC % Seg Neutrophils # Seg Neutrophils # Man Lymphocytes # (Manual) Monocytes # (Manual) PT INR APTT Fibrinogen D-Dimer Factor VIII:C Activity POC ABG pH ABG pH POC ABG pCO2 POC ABG pO2 Sodium 135 L Potassium Chloride Carbon Dioxide BUN Creatinine 0.3 L Glucose 207 H POC Glucose 244 H Lactic Acid Calcium 7.5 L D Iron TIBC Total Creatine Kinase Troponin T Total Protein Albumin LDL Cholesterol Direct HDL Cholesterol Vitamin B12 Urine WBC (Auto) Vancomycin Trough Crossmatch 08/03/17 08/03/17 08/03/17 05:14 05:14 08:03 WBC RBC Hgb Hct MCV MCH RDW Lymph % (Auto) [place] % (Auto) Seg Neutrophils % Seg Neuts % (Manual) Lymphocytes % (Manual) Nucleated RBC % Seg Neutrophils # Seg Neutrophils # Man Lymphocytes # (Manual) Monocytes # (Manual) PT INR APTT Fibrinogen D-Dimer Factor VIII:C Activity POC ABG pH 7.479 H ABG pH POC ABG pCO2 34.5 L POC ABG pO2 141 H Sodium Potassium Chloride Carbon Dioxide BUN Creatinine Glucose POC Glucose 205 H Lactic Acid Calcium Iron TIBC Total Creatine Kinase Troponin T Total Protein Albumin LDL Cholesterol Direct HDL Cholesterol Vitamin B12 Urine WBC (Auto) Vancomycin Trough Crossmatch See Detail 08/03/17 08/03/17 08/03/17 12:11 17:27 23:59 WBC RBC Hgb Hct MCV MCH RDW Lymph % (Auto) [place] % (Auto) Seg Neutrophils % Seg Neuts % (Manual) Lymphocytes % (Manual) Nucleated RBC % Seg Neutrophils # Seg Neutrophils # Man Lymphocytes # (Manual) Monocytes # (Manual) PT INR APTT Fibrinogen D-Dimer Factor VIII:C Activity POC ABG pH ABG pH POC ABG pCO2 POC ABG pO2 Sodium Potassium Chloride Carbon Dioxide BUN Creatinine Glucose POC Glucose 270 H 219 H 162 H Lactic Acid Calcium Iron TIBC Total Creatine Kinase Troponin T Total Protein Albumin LDL Cholesterol Direct HDL Cholesterol Vitamin B12 Urine WBC (Auto) Vancomycin Trough Crossmatch 08/04/17 08/04/17 08/04/17 03:52 03:53 03:53 WBC RBC Hgb Hct MCV 76 L MCH 26 L RDW 19.4 H Lymph % (Auto) 12.8 L [place] % (Auto) Seg Neutrophils % 79.1 H Seg Neuts % (Manual) Lymphocytes % (Manual) Nucleated RBC % Seg Neutrophils # Seg Neutrophils # Man Lymphocytes # (Manual) Monocytes # (Manual) PT INR APTT Fibrinogen D-Dimer Factor VIII:C Activity POC ABG pH 7.488 H ABG pH POC ABG pCO2 33.3 L POC ABG pO2 111 H Sodium Potassium Chloride Carbon Dioxide 21 L BUN Creatinine 0.3 L Glucose 146 H POC Glucose Lactic Acid Calcium 7.6 L Iron TIBC Total Creatine Kinase Troponin T Total Protein 5.1 L Albumin 2.2 L LDL Cholesterol Direct HDL Cholesterol Vitamin B12 Urine WBC (Auto) Vancomycin Trough Crossmatch 08/04/17 08/04/17 08/04/17 05:48 10:07 11:23 WBC RBC Hgb Hct MCV MCH RDW Lymph % (Auto) [place] % (Auto) Seg Neutrophils % Seg Neuts % (Manual) Lymphocytes % (Manual) Nucleated RBC % Seg Neutrophils # Seg Neutrophils # Man Lymphocytes # (Manual) Monocytes # (Manual) PT 15.1 H INR APTT Fibrinogen D-Dimer Factor VIII:C Activity POC ABG pH ABG pH POC ABG pCO2 POC ABG pO2 Sodium Potassium Chloride Carbon Dioxide BUN Creatinine Glucose POC Glucose 137 H 156 H Lactic Acid Calcium Iron TIBC Total Creatine Kinase Troponin T Total Protein Albumin LDL Cholesterol Direct HDL Cholesterol Vitamin B12 Urine WBC (Auto) Vancomycin Trough Crossmatch 08/04/17 08/04/17 08/05/17 18:01 23:56 04:00 WBC RBC Hgb 9.9 L Hct 29.5 L MCV MCH 26 L RDW 19.8 H Lymph % (Auto) [place] % (Auto) Seg Neutrophils % 77.9 H Seg Neuts % (Manual) Lymphocytes % (Manual) Nucleated RBC % Seg Neutrophils # Seg Neutrophils # Man Lymphocytes # (Manual) Monocytes # (Manual) PT INR APTT Fibrinogen D-Dimer Factor VIII:C Activity POC ABG pH ABG pH POC ABG pCO2 POC ABG pO2 Sodium Potassium Chloride Carbon Dioxide BUN Creatinine Glucose POC Glucose 242 H 201 H Lactic Acid Calcium Iron TIBC Total Creatine Kinase Troponin T Total Protein Albumin LDL Cholesterol Direct HDL Cholesterol Vitamin B12 Urine WBC (Auto) Vancomycin Trough Crossmatch 08/05/17 08/05/17 08/05/17 04:00 04:13 05:19 WBC RBC Hgb Hct MCV MCH RDW Lymph % (Auto) [place] % (Auto) Seg Neutrophils % Seg Neuts % (Manual) Lymphocytes % (Manual) Nucleated RBC % Seg Neutrophils # Seg Neutrophils # Man Lymphocytes # (Manual) Monocytes # (Manual) PT INR APTT Fibrinogen D-Dimer Factor VIII:C Activity POC ABG pH 7.459 H ABG pH POC ABG pCO2 POC ABG pO2 Sodium Potassium Chloride Carbon Dioxide BUN Creatinine 0.3 L Glucose 186 H POC Glucose 193 H Lactic Acid Calcium 8.2 L Iron TIBC Total Creatine Kinase Troponin T Total Protein Albumin LDL Cholesterol Direct HDL Cholesterol Vitamin B12 Urine WBC (Auto) Vancomycin Trough Crossmatch 08/05/17 08/05/17 08/06/17 13:46 17:12 00:07 WBC RBC Hgb Hct MCV MCH RDW Lymph % (Auto) [place] % (Auto) Seg Neutrophils % Seg Neuts % (Manual) Lymphocytes % (Manual) Nucleated RBC % Seg Neutrophils # Seg Neutrophils # Man Lymphocytes # (Manual) Monocytes # (Manual) PT INR APTT Fibrinogen D-Dimer Factor VIII:C Activity POC ABG pH ABG pH POC ABG pCO2 POC ABG pO2 Sodium Potassium Chloride Carbon Dioxide BUN Creatinine Glucose POC Glucose 238 H 197 H 124 H Lactic Acid Calcium Iron TIBC Total Creatine Kinase Troponin T Total Protein Albumin LDL Cholesterol Direct HDL Cholesterol Vitamin B12 Urine WBC (Auto) Vancomycin Trough Crossmatch 08/06/17 08/06/17 08/06/17 03:50 04:33 05:27 WBC 11.2 H RBC Hgb 9.4 L Hct 29.6 L MCV MCH 26 L RDW 20.2 H Lymph % (Auto) 12.7 L [place] % (Auto) Seg Neutrophils % 80.9 H Seg Neuts % (Manual) Lymphocytes % (Manual) Nucleated RBC % Seg Neutrophils # 9.1 H Seg Neutrophils # Man Lymphocytes # (Manual) Monocytes # (Manual) PT INR APTT Fibrinogen D-Dimer Factor VIII:C Activity POC ABG pH 7.475 H ABG pH POC ABG pCO2 POC ABG pO2 Sodium Potassium Chloride Carbon Dioxide BUN Creatinine Glucose POC Glucose 199 H Lactic Acid Calcium Iron TIBC Total Creatine Kinase Troponin T Total Protein Albumin LDL Cholesterol Direct HDL Cholesterol Vitamin B12 Urine WBC (Auto) Vancomycin Trough Crossmatch 08/06/17 08/06/17 08/07/17 11:50 17:34 00:09 WBC RBC Hgb Hct MCV MCH RDW Lymph % (Auto) [place] % (Auto) Seg Neutrophils % Seg Neuts % (Manual) Lymphocytes % (Manual) Nucleated RBC % Seg Neutrophils # Seg Neutrophils # Man Lymphocytes # (Manual) Monocytes # (Manual) PT INR APTT Fibrinogen D-Dimer Factor VIII:C Activity POC ABG pH ABG pH POC ABG pCO2 POC ABG pO2 Sodium Potassium Chloride Carbon Dioxide BUN Creatinine Glucose POC Glucose 190 H 197 H 204 H Lactic Acid Calcium Iron TIBC Total Creatine Kinase Troponin T Total Protein Albumin LDL Cholesterol Direct HDL Cholesterol Vitamin B12 Urine WBC (Auto) Vancomycin Trough Crossmatch 08/07/17 05:04 WBC RBC Hgb Hct MCV MCH RDW Lymph % (Auto) [place] % (Auto) Seg Neutrophils % Seg Neuts % (Manual) Lymphocytes % (Manual) Nucleated RBC % Seg Neutrophils # Seg Neutrophils # Man Lymphocytes # (Manual) Monocytes # (Manual) PT INR APTT Fibrinogen D-Dimer Factor VIII:C Activity POC ABG pH ABG pH POC ABG pCO2 POC ABG pO2 Sodium Potassium Chloride Carbon Dioxide BUN Creatinine Glucose POC Glucose 146 H Lactic Acid Calcium Iron TIBC Total Creatine Kinase Troponin T Total Protein Albumin LDL Cholesterol Direct HDL Cholesterol Vitamin B12 Urine WBC (Auto) Vancomycin Trough Crossmatch Chest x-ray: report reviewed, image reviewed
--- NOTE | 2017-08-07 14:19 | Discharge Summary ---
Providers - Providers Date of Admission: 07/29/17 04:30 Attending physician: MELISSA BEDOYA MD 07/29/17 04:30 Consult to Physician [CONS] Routine Consulting Provider: PHUONG MARINO Reason For Exam: cc Place consult to:: Dr. Lazo Notified:: Answering Service Phone number called:: [phone] Was contact made?: Yes If yes, spoke with:: Chirag Time called:: 05:08 Consult to Physician [CONS] Routine Consulting Provider: MANA TEJEDA Reason For Exam: blue toes Place consult to:: office Notified:: yes Phone number called:: [phone] Was contact made?: Yes If yes, spoke with:: Michel Time called:: 08:28 07/29/17 09:44 Consult to Physician [CONS] Routine Consulting Provider: JOSE CASTANO Reason For Exam: G-Tube infection Place consult to:: Linda Durbin Notified:: yes Phone number called:: overhead page Was contact made?: Yes If yes, spoke with:: Linda Time called:: 09:45 07/29/17 17:28 Consult to Wound/ET Nurse [CONS] Routine Reason For Exam: wound eval 07/29/17 17:33 Consult to Dietitian/Nutrition [CONS] Routine Physician Instructions: Reason For Exam: Reason for Consult: Write/Manage Tube Feeding 08/01/17 17:00 Consult to Physician [CONS] Routine Comment: Consulting Provider: NANDA WADDELL Physician Instructions: Reason For Exam: anemia 08/03/17 21:07 Physical Therapy Evaluation and Treat [CONS] Routine Comment: Reason For Exam: debility. Primary care physician: PRESTON RIVERA Hospitalization Reason for admission: septic shock Condition: Stable Hospital course: 71 -year-old history with history of hypertension, diabetes from the [facility] for evaluation of fever. In the emergency room she was hypotensive with systolic blood pressure in 80s, she was given IV fluids, central line was placed and he was started on antibiotics. Patient is a aphasic, review of system is unobtainable. Patient was noted to have septic shock and started on pressors with IV antibiotics and fluids. She was eventually weaned off Levophed and started on increasing dose of Midodine. Antiboitics for pneumonia was started adn patient was successful removed from the vent to a trach collar. Patient has a hx of anoxic brain injury. Initially noted to have Coumadin toxicity and severe anemia. She was transfused 2 units of PRBC and also for acute cystitis was treated with abx. GI and sizing end bander input was noted. Patient was made DNR according to the family wishes. Discharge diagnosis Septic shock Hypotension Pneumonia, LLL. POA Respiratory failure on trach Anoxic brain injury, patient is on PEG and trach chronically Coumadin toxicity Severe anemia Acute Cystsis History of multiple strokes Dilated CMP Disposition: DC/TX-03 SNF W [facility] CERT Time spent for discharge: 35 mins Core Measure Documentation - Palliative Care Palliative Care/ Comfort Measures: Not Applicable - Core Measures Any of the following diagnoses?: none - VTE Discharge Requirements Deep Vein Thrombosis/Pulmonary Embolism Present on Admission: No Exam - Physical Exam Narrative exam: Patient is comatose, on PEG and trach, on Tcollar Vital signs as documented. Head exam is unremarkable. No scleral icterus . Neck is without jugular venous distension, thyromegaly, or carotid bruits. Lungs are clear to auscultation. Cardiac exam reveals regular rate and Rhythm. First and second heart sounds normal. No murmurs, rubs or gallops. Abdominal exam reveals normal bowel sounds, no masses, no organomegaly and no aortic enlargement. Extremities contracted, decubitus ulcer. 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
[2017-08-07] MEDS ORDERED: COUMADIN PO SCH (17:00)
[2017-08-07 19:09] VITALS: BP 138/79
[2017-08-08] MEDS ORDERED: COUMADIN PO SCH (10:00)
== END 2017-08-07 19:44 | DRG 870 ==
LOC: ED 01:00 → CC1 04:30
PROVIDERS: ADMIT Internal Medicine; ATTEND Internal Medicine
PROC: 5A1955Z Respiratory Ventilation, Greater than 96 Consecutive Hours (ICD-10-PCS; 2017-07-29)
PROC: 02HV33Z Insertion of Infusion Device into Superior Vena Cava, Percutaneous Approach (ICD-10-PCS; 2017-07-29)
PROC: 30233N1 Transfusion of Nonautologous Red Blood Cells into Peripheral Vein, Percutaneous Approach (ICD-10-PCS; principal; 2017-08-03)
PROC: 4A033R1 Measurement of Arterial Saturation, Peripheral, Percutaneous Approach (ICD-10-PCS; 2017-08-06)
DX: A41.9 Sepsis, unspecified organism (principal); J96.20 Acute and chronic respiratory failure, unspecified whether with hypoxia or hypercapnia; R65.21 Severe sepsis with septic shock; J18.1 Lobar pneumonia, unspecified organism; E87.0 Hyperosmolality and hypernatremia; D68.9 Coagulation defect, unspecified; N30.00 Acute cystitis without hematuria; I42.0 Dilated cardiomyopathy; N17.9 Acute kidney failure, unspecified; G93.1 Anoxic brain damage, not elsewhere classified; L81.9 Disorder of pigmentation, unspecified; D64.9 Anemia, unspecified; E86.0 Dehydration; L89.90 Pressure ulcer of unspecified site, unspecified stage; Z66 Do not resuscitate; T45.515A Adverse effect of anticoagulants, initial encounter; Y92.89 Other specified places as the place of occurrence of the external cause; Z90.710 Acquired absence of both cervix and uterus; Z79.82 Long term (current) use of aspirin; Z79.899 Other long term (current) drug therapy; Z90.10 Acquired absence of unspecified breast and nipple; Z86.73 Personal history of transient ischemic attack (TIA), and cerebral infarction without residual deficits; Z93.0 Tracheostomy status; Z93.1 Gastrostomy status
CPT/HCPCS: 36415; 36600; 71045; 74018; 80048; 80053; 80061; 80202; 81001; 82140; 82550; 82553; 82607; 82803; 82805; 82962; 83550; 83615; 84484; 85007; 85025; 85027; 85240; 85379; 85384; 85610; 85730; 86850; 86900; 86901; 86920; 87040; 87070; 87076; 87086; 87186; 87205; 93005; 93010; 94002; 94003; 94640; 94760; 96361; 96365; 96366; 96375; 99291; G8978-GP; G8979-GP; G8980-GP; J1815; J1956; J2543; J2997; J3370; J3430; J3480; J7030; J7040; P9016; Q9967

== ENCOUNTER 2017-09-20 15:27 | Inpatient (IN) | payer MEDICARE ==
[2017-09-20] MEDS ORDERED: NACL 0.9% 1000 ML 2,000 ML ONE (15:54)
[2017-09-20] MEDS ORDERED: NACL 0.9% 1000 ML 1,000 ML IV ONE ×2 (15:57)
[2017-09-20 16:05] LABS: Basophils % (Auto) 0.4 % (0.0-1.8); Eosinophils # (Auto) 0.1 K/mm3 (0.0-0.4); Eosinophils % (Auto) 1.4 % (0.0-4.3); Hemoglobin 12.6 gm/dl (10.1-14.3); Lymphocytes # (Auto) 1.9 K/mm3 (1.2-5.4); Lymphocytes % (Auto) 22.2 % (13.4-35.0); Mean Corpuscular HGB Conc 32 % (30-34); Mean Corpuscular Hemoglobin 27 pg (28-32); Mean Corpuscular Volume 83 fl (79-97); Monocytes # (Auto) 0.8 K/mm3 (0.0-0.8); Monocytes % (Auto) 8.7 % (0.0-7.3); Platelet Count 228 K/mm3 (140-440); Red Blood Count 4.71 M/mm3 (3.65-5.03)
--- NOTE | 2017-09-20 16:06 | Emergency Department Report ---
ED General Adult HPI - General Stated complaint: VOMITING Time Seen by Provider: 09/20/17 15:49 Source: EMS Mode of arrival: Stretcher Limitations: Altered Mental Status, Physical Limitation - History of Present Illness Initial comments: Patient is 72 years old female from [facility]. Patient was sent to the ER for possible sepsis evaluation. skilled nursing staff reported to patient being more lethargic and she started vomiting coffee-ground emesis this morning with a low blood pressure and tachycardia of 120 beats per minutes. Patient has history of anoxic brain injury with tracheostomy in place. Patient also had a Peg- tube in place. Patient is DO NOT RESUSCITATE. Patient also had a Blackman catheter in placed. -: Gradual - Related Data Home Medications Medication Instructions Recorded Confirmed Last Taken Acetaminophen [Acetaminophen ER] 650 mg PO PRN PRN 07/29/17 07/29/17 Unknown Glycopyrrolate [Robinul] 1 mg PO BID 07/29/17 07/29/17 Unknown Ipratropium/Albuterol Sulfate 1 ampul IH Q4HR 07/29/17 07/29/17 Unknown [DUONEB *Not for PRN Use*] Warfarin [Coumadin] 7.5 mg PO QDAY 07/29/17 07/29/17 Unknown Warfarin [Coumadin] 10 mg PO 3XW 07/29/17 07/29/17 Unknown Previous Rx's Medication Instructions Recorded Last Taken Type Famotidine [Pepcid] 20 mg PO BID #60 tablet 08/07/17 Unknown Rx Insulin Glargine [Lantus VIAL] 10 units SUB-Q QHS #7 units 08/07/17 Unknown Rx Midodrine [Proamatine] 10 mg PO TID #30 tablet 08/07/17 Unknown Rx Allergies Allergy/AdvReac Type Severity Reaction Status Date / Time No Known Allergies Allergy Unverified 09/30/13 14:18 ED Review of Systems ROS: Stated complaint: VOMITING Other details as noted in HPI Comment: Unobtainable due to pts medical conditions ED Past Medical Hx - Past Medical History Hx Hypertension: Yes Hx Heart Attack/AMI: Yes (Cardiac arrest this admission after intubation by ER.) Hx Diabetes: Yes Hx Liver Disease: No Hx Renal Disease: No Hx Seizures: No Hx Psychiatric Treatment: Yes (schizo) Hx Asthma: No Hx HIV: No Additional medical history: dysphagia, g-tube, trach, anoxic brain injury - Surgical History Hx Breast Surgery: Yes (Mastectomy 2002) Additional Surgical History: Hysterectomy 1974 - Social History Smoking Status: Unknown if ever smoked - Medications Home Medications: Home Medications Medication Instructions Recorded Confirmed Last Taken Type Acetaminophen [Acetaminophen ER] 650 mg PO PRN PRN 07/29/17 07/29/17 Unknown History Glycopyrrolate [Robinul] 1 mg PO BID 07/29/17 07/29/17 Unknown History Ipratropium/Albuterol Sulfate 1 ampul IH Q4HR 07/29/17 07/29/17 Unknown History [DUONEB *Not for PRN Use*] Warfarin [Coumadin] 7.5 mg PO QDAY 07/29/17 07/29/17 Unknown History Warfarin [Coumadin] 10 mg PO 3XW 07/29/17 07/29/17 Unknown History Famotidine [Pepcid] 20 mg PO BID #60 tablet 08/07/17 Unknown Rx Insulin Glargine [Lantus VIAL] 10 units SUB-Q QHS #7 units 08/07/17 Unknown Rx Midodrine [Proamatine] 10 mg PO TID #30 tablet 08/07/17 Unknown Rx ED Physical Exam - General Limitations: Altered Mental Status, Physical Limitation General appearance: alert, in no apparent distress - Eye Eye exam: Present: normal appearance - ENT ENT exam: Present: normal exam, mucous membranes dry - Neck Neck exam: Present: other (tracheostomy in place). Absent: tenderness, meningismus, lymphadenopathy, thyromegaly - Respiratory Respiratory exam: Present: rales, decreased breath sounds. Absent: respiratory distress, wheezes, rhonchi, stridor - Cardiovascular Cardiovascular Exam: Present: tachycardia - GI/Abdominal GI/Abdominal exam: Present: soft, normal bowel sounds. Absent: distended, tenderness, guarding, rebound, rigid, organomegaly, mass, bruit, pulsatile mass , hernia - Rectal Rectal exam: Present: normal inspection, normal rectal tone, heme (-) stool. Absent: decreased rectal tone, heme (+) stool, black stool, bloody stool, fecal impaction, hemorrhoids, mass, tenderness - Extremities Exam Extremities exam: Present: normal inspection, other (contracted) - Back Exam Back exam: Absent: CVA tenderness (R), CVA tenderness (L), muscle spasm, paraspinal tenderness, vertebral tenderness - Neurological Exam Neurological exam: Present: alert, altered - Skin Skin exam: Present: warm, dry ED Course Vital Signs 09/20/17 09/20/17 09/20/17 15:35 16:48 17:23 Temperature 99.5 F Pulse Rate 118 H 105 H Respiratory 22 20 Rate Blood Pressure 99/71 Blood Pressure 120/73 [Left] O2 Sat by Pulse 100 100 Oximetry O2 Sat by Pulse 98 Oximetry [ Assessment] 09/20/17 17:35 Temperature Pulse Rate 105 H Respiratory 18 Rate Blood Pressure Blood Pressure 119/74 [Left] O2 Sat by Pulse 95 Oximetry O2 Sat by Pulse Oximetry [ Assessment] ED Medical Decision Making - Lab Data Result diagrams: 09/20/17 15:54 09/20/17 15:54 - Radiology Data Radiology results: report reviewed Chest x-ray unremarkable. - Medical Decision Making I discussed the patient with Dr Owen, He agreed to admit to his service. Critical Care Time: Yes Critical care time in (mins) excluding proc time.: 30 Critical care attestation.: If time is entered above; I have spent that time in minutes in the direct care of this critically ill patient, excluding procedure time. ED Disposition Clinical Impression: Septic shock, GI bleed, UTI (urinary tract infection) Disposition: DC-09 OP ADMIT IP TO THIS HOSP Is pt being admited?: Yes Condition: Stable Referrals: PRIMARY CARE, [Primary Care Provider] - 3-5 Days Forms: Accompanied Note
[2017-09-20 16:07] LABS: Red Cell Distribution Width 21.4 % (13.2-15.2)
[2017-09-20 16:15] LABS: INR 2.17 (0.87-1.13)
[2017-09-20 16:27] LABS: Alanine Aminotransferase 31 units/L (7-56); Albumin 3.1 g/dL (3.9-5); BUN/Creatinine Ratio 42; Blood Urea Nitrogen 21 mg/dL (7-17); Calcium 9.2 mg/dL (8.4-10.2); Hemolysis Index 11
[2017-09-20] MEDS: ZOSYN/NS 3.375GM/50ML 3.375 GM/50 ML BAG IV SCH ×2 (16:35→23:09)
--- NOTE | 2017-09-20 17:11 | XRay Report ---
FINAL REPORT PROCEDURE: XR CHEST 1V AP TECHNIQUE: Chest radiograph anteroposterior view. CPT 08548 HISTORY: possible Sepsis COMPARISON: 08/02/2017 FINDINGS: Heart: Normal. Mediastinum/Vessels: Normal. Lungs/Pleural space: No infiltrate, effusion, or pneumothorax. Bony thorax: No acute osseous abnormality. Life support devices: Tracheostomy tube is present. IMPRESSION: No radiographic evidence of acute cardiopulmonary abnormality.
[2017-09-20 17:39] LABS: Amorphous Crystals,Urine Few; Bacteria,Urine 4+ /HPF (Negative); Bilirubin,Urine NEG (Negative); Blood,Urine SM (Negative); Color,Urine Yellow (Yellow); Mucus,Urine 3+ /HPF; Urobilinogen,Urine < 2.0 mg/dL (<2.0)
[2017-09-20 17:42] LABS: WBC,Urine > 182.0 /HPF (0.0-6.0)
[2017-09-20] MEDS ORDERED: PROTONIX IV ONE (18:00)
--- NOTE | 2017-09-20 18:04 | History and Physical Report ---
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 Pt is nonverbal, and unable to provide history. Pt history provided by ED staff, EMS, and SNF staff. As per SNF staff, the patient was found to be lethargic, and experienced an episode of vomiting, as well as a low blood pressure with systolic BP in the 80's and a heart rate in the 120's. EMS notified, and patient transported to [facility] for further care and evaluation. Pt seen and evaluated in ED and found to have SIRS, UTI, And Encephalopathy. Pt admitted to [facility] unit. No reports of fever , chills, CP, Palpitations, Trauma, Syncope, productive cough, skin rash, or recent ill contacts. Past History Past Medical History: diabetes, hypertension Past Surgical History: hysterectomy, mastectomy, Other (Trach, Peg) Social history: single. denies: smoking, alcohol abuse, prescription drug abuse Family history: diabetes, hypertension Medications and Allergies Allergies Allergy/AdvReac Type Severity Reaction Status Date / Time No Known Allergies Allergy Unverified 09/30/13 14:18 Home Medications Medication Instructions Recorded Confirmed Last Taken Type Acetaminophen [Acetaminophen ER] 650 mg PO PRN PRN 07/29/17 07/29/17 Unknown History Glycopyrrolate [Robinul] 1 mg PO BID 07/29/17 07/29/17 Unknown History Ipratropium/Albuterol Sulfate 1 ampul IH Q4HR 07/29/17 07/29/17 Unknown History [DUONEB *Not for PRN Use*] Warfarin [Coumadin] 7.5 mg PO QDAY 07/29/17 07/29/17 Unknown History Warfarin [Coumadin] 10 mg PO 3XW 07/29/17 07/29/17 Unknown History Famotidine [Pepcid] 20 mg PO BID #60 tablet 08/07/17 Unknown Rx Insulin Glargine [Lantus VIAL] 10 units SUB-Q QHS #7 units 08/07/17 Unknown Rx Midodrine [Proamatine] 10 mg PO TID #30 tablet 08/07/17 Unknown Rx Active Meds: Active Medications Piperacillin Sod/Tazobactam Sod (Zosyn/Ns 3.375gm/50ml) 3.375 gm in 50 mls @ 100 mls/hr IV Q6H TIMMY Last Admin: 09/20/17 16:35 Dose: 100 mls/hr Review of Systems ROS unobtainable: due to mental status Exam - Constitutional Vitals: Temp Pulse Resp BP Pulse Ox 99.5 F 105 H 18 119/74 95 09/20/17 15:35 09/20/17 17:35 09/20/17 17:35 09/20/17 17:35 09/20/17 17:35 General appearance: Present: mild distress - EENT Eyes: Present: miosis ENT: other (Trach in place) - Neck Neck: Present: supple, normal ROM - Respiratory Respiratory: bilateral: diminished, rhonchi - Cardiovascular Heart Sounds: Present: S1 & S2. Absent: rub, click - Extremities Extremities: pulses symmetrical, No edema Peripheral Pulses: within normal limits - Abdominal General gastrointestinal: Present: soft, non-tender, non-distended, normal bowel sounds, other (PEG in place) Female genitourinary: Present: normal - Integumentary Integumentary: Present: clear, dry, decreased turgor - Musculoskeletal Musculoskeletal: generalized weakness - Psychiatric Psychiatric: no intact judgment & insight, no memory intact Results - Labs CBC & Chem 7: 09/20/17 15:54 09/20/17 15:54 Labs: Abnormal lab results 09/20/17 09/20/17 09/20/17 Range/Units 15:54 15:54 15:54 MCH 27 L (28-32) pg RDW 21.4 H (13.2-15.2) % [place] % (Auto) 8.7 H (0.0-7.3) % PT 25.6 H (12.2-14.9) Sec. INR 2.17 H (0.87-1.13) VBG pH (7.320-7.420) BUN 21 H (7-17) mg/dL Creatinine 0.5 L (0.7-1.2) mg/dL Glucose 172 H (65-100) mg/dL Albumin 3.1 L (3.9-5) g/dL Urine WBC (Auto) (0.0-6.0) /HPF 09/20/17 09/20/17 Range/Units 15:54 17:18 MCH (28-32) pg RDW (13.2-15.2) % [place] % (Auto) (0.0-7.3) % PT (12.2-14.9) Sec. INR (0.87-1.13) VBG pH 7.471 H (7.320-7.420) BUN (7-17) mg/dL Creatinine (0.7-1.2) mg/dL Glucose (65-100) mg/dL Albumin (3.9-5) g/dL Urine WBC (Auto) > 182.0 H (0.0-6.0) /HPF Assessment and Plan - Patient Problems (1) SIRS (systemic inflammatory response syndrome) Current Visit: Yes Status: Acute Plan to address problem: IV antibiotics, Chest Xray, Urinalysis, monitor uop q shift, repeat CBC, blood cultures (2) UTI (urinary tract infection) Current Visit: Yes Status: Acute Qualifiers: Encounter type: initial encounter Plan to address problem: IV antibiotics, urinalysis, supportive care. (3) Anoxic encephalopathy Current Visit: No Status: Acute Plan to address problem: Neuro checks,seizure percautions, aspiration precautions, (4) DVT prophylaxis Current Visit: Yes Status: Acute Plan to address problem: SCD to ETHAN while in bed
[2017-09-20] MEDS ORDERED: SODIUM CHLORIDE FLUSH SYRINGE 10 ML IV PRN (18:13)
[2017-09-20] MEDS ORDERED: TYLENOL PO PRN (18:13)
[2017-09-20] MEDS ORDERED: PROVENTIL IH PRN (18:13)
[2017-09-20] MEDS ORDERED: ZOFRAN IV PRN (18:13)
[2017-09-20] MEDS ORDERED: NON-FORMULARY (Acetaminophen [Acetaminophen Er] 650 MG) PO PRN (18:15)
[2017-09-20] MEDS: DUONEB *Not for PRN Use IH SCH (20:08)
[2017-09-20] MEDS: COUMADIN PO SCH (20:43)
[2017-09-20] MEDS: NACL 0.45% 1000 ML 1,000 ML IV SCH (20:44)
[2017-09-20] MEDS: PROAMATINE PO SCH (20:46)
[2017-09-20] MEDS: PEPCID PO SCH (21:56)
[2017-09-20] MEDS: cefTRIAXone 2 GM in NACL 0.9% 20 ML IV SCH (21:56)
[2017-09-20] MEDS: SODIUM CHLORIDE FLUSH SYRINGE 10 ML IV SCH (21:57)
[2017-09-20] MEDS: ROBINUL PO SCH (23:11)
[2017-09-20] MEDS: LANTUS SUB-Q SCH (23:11)
[2017-09-21] MEDS: DUONEB *Not for PRN Use IH SCH ×4 (00:42→22:34)
[2017-09-21] MEDS: ZOSYN/NS 3.375GM/50ML 3.375 GM/50 ML BAG IV SCH (05:51)
[2017-09-21 06:43] LABS: INR 2.3 (0.87-1.13)
--- NOTE | 2017-09-21 07:25 | Progress Note ---
Assessment and Plan Assessment and plan: --Sepsis due to urinary tract infection Continue empiric antibiotics, follow cultures, supportive care --SIRS; IV antibiotics and follow cultures supportive care --History of cardiopulmonary arrest 2 years ago/anoxic encephalopathy Continue supportive care --Status post trach and PEG; Tracheostomy care, nebulizers treatments as needed, oxygen PEG feeds per protocol --DVT prophylaxis; Lovenox --DO NOT RESUSCITATE status DC planning. Case management; transfer back to retirement when medically stable Plan of care discussed with the patient's nurse Disposition; transfer back to retirement when medically stable Consider hospice History Interval history: 72-year-old patient retirement resident status post trach and PEG, DO NOT RESUSCITATE status Was admitted through emergency room with SIRS, sepsis due to urinary tract infection Patient is receiving empiric antibiotics and supportive care Patient seen and examined this morning medical records reviewed Patient is noncommunicative status post trach and PEG No new events reported by the nursing Vital signs reviewed Hospitalist Physical - Constitutional Vitals: Temp Pulse Resp BP Pulse Ox 99.5 F 80 20 132/78 99 09/20/17 15:35 09/20/17 22:00 09/20/17 20:09 09/20/17 18:18 09/21/17 02:16 General appearance: Present: mild distress, cachectic, disheveled - EENT Eyes: Present: PERRL, EOM intact ENT: other (status post trach) - Neck Neck: Present: supple, normal ROM - Respiratory Respiratory effort: normal Respiratory: bilateral: diminished, rhonchi, negative: rales, wheezing - Cardiovascular Rhythm: regular Heart Sounds: Present: S1 & S2 - Extremities Extremities: abnormal (contracted) Extremity abnormal: edema - Abdominal General gastrointestinal: soft, non-tender, non-distended, normal bowel sounds, other (PEG in place) - Integumentary Integumentary: Present: clear, warm - Psychiatric Psychiatric: other (noncommunicative) - Neurologic Neurologic: other (noncommunicative) Results - Labs CBC & Chem 7: 09/20/17 15:54 09/20/17 15:54 Labs: Laboratory Last Values WBC 8.7 K/mm3 (4.5-11.0) 09/20/17 15:54 RBC 4.71 M/mm3 (3.65-5.03) 09/20/17 15:54 Hgb 12.6 gm/dl (10.1-14.3) 09/20/17 15:54 Hct 39.0 % (30.3-42.9) 09/20/17 15:54 MCV 83 fl (79-97) 09/20/17 15:54 MCH 27 pg (28-32) L 09/20/17 15:54 MCHC 32 % (30-34) 09/20/17 15:54 RDW 21.4 % (13.2-15.2) H 09/20/17 15:54 Plt Count 228 K/mm3 (140-440) 09/20/17 15:54 Lymph % (Auto) 22.2 % (13.4-35.0) 09/20/17 15:54 [place] % (Auto) 8.7 % (0.0-7.3) H 09/20/17 15:54 Eos % (Auto) 1.4 % (0.0-4.3) 09/20/17 15:54 Baso % (Auto) 0.4 % (0.0-1.8) 09/20/17 15:54 Lymph # 1.9 K/mm3 (1.2-5.4) 09/20/17 15:54 [place] # 0.8 K/mm3 (0.0-0.8) 09/20/17 15:54 Eos # 0.1 K/mm3 (0.0-0.4) 09/20/17 15:54 Baso # 0.0 K/mm3 (0.0-0.1) 09/20/17 15:54 Seg Neutrophils % 67.3 % (40.0-70.0) 09/20/17 15:54 Seg Neutrophils # 5.9 K/mm3 (1.8-7.7) 09/20/17 15:54 PT 26.8 Sec. (12.2-14.9) H 09/21/17 05:45 INR 2.30 (0.87-1.13) H 09/21/17 05:45 VBG pH 7.471 (7.320-7.420) H 09/20/17 15:54 Sodium 141 mmol/L (137-145) 09/20/17 15:54 Potassium 3.8 mmol/L (3.6-5.0) 09/20/17 15:54 Chloride 102.7 mmol/L (98-107) 09/20/17 15:54 Carbon Dioxide 26 mmol/L (22-30) 09/20/17 15:54 Anion Gap 16 mmol/L 09/20/17 15:54 BUN 21 mg/dL (7-17) H 09/20/17 15:54 Creatinine 0.5 mg/dL (0.7-1.2) L 09/20/17 15:54 Estimated GFR > 60 ml/min 09/20/17 15:54 BUN/Creatinine Ratio 42 % 09/20/17 15:54 Glucose 172 mg/dL (65-100) H 09/20/17 15:54 POC Glucose 111 (70-105) H 09/20/17 22:23 Lactic Acid 1.30 mmol/L (0.7-2.0) 09/20/17 18:16 Calcium 9.2 mg/dL (8.4-10.2) 09/20/17 15:54 Total Bilirubin 0.50 mg/dL (0.1-1.2) 09/20/17 15:54 AST 27 units/L (5-40) 09/20/17 15:54 ALT 31 units/L (7-56) 09/20/17 15:54 Alkaline Phosphatase 76 units/L (35-129) 09/20/17 15:54 Total Protein 7.2 g/dL (6.3-8.2) 09/20/17 15:54 Albumin 3.1 g/dL (3.9-5) L 09/20/17 15:54 Albumin/Globulin Ratio 0.8 % 09/20/17 15:54 Urine Color Yellow (Yellow) 09/20/17 17:18 Urine Turbidity Clear (Clear) 09/20/17 17:18 Urine pH 6.0 (5.0-7.0) 09/20/17 17:18 Ur Specific [place] 1.024 (1.003-1.030) 09/20/17 17:18 Urine Protein 30 mg/dl mg/dL (Negative) 09/20/17 17:18 Urine Glucose (UA) Neg mg/dL (Negative) 09/20/17 17:18 Urine Ketones Neg mg/dL (Negative) 09/20/17 17:18 Urine Blood Sm (Negative) 09/20/17 17:18 Urine Nitrite Pos (Negative) 09/20/17 17:18 Urine Bilirubin Neg (Negative) 09/20/17 17:18 Urine Urobilinogen < 2.0 mg/dL (<2.0) 09/20/17 17:18 Ur Leukocyte Esterase Lg (Negative) 09/20/17 17:18 Urine WBC (Auto) > 182.0 /HPF (0.0-6.0) H 09/20/17 17:18 Urine RBC (Auto) 60.0 /HPF (0.0-6.0) 09/20/17 17:18 Urine Bacteria (Auto) 4+ /HPF (Negative) 09/20/17 17:18 Amorphous Crystals Few 09/20/17 17:18 Urine Mucus 3+ /HPF 09/20/17 17:18
[2017-09-21] MEDS: PROAMATINE PO SCH ×3 (08:55→22:22)
[2017-09-21] MEDS: PEPCID PO SCH ×2 (09:38→22:23)
[2017-09-21] MEDS: ROBINUL PO SCH ×2 (09:38→22:23)
[2017-09-21] MEDS: SODIUM CHLORIDE FLUSH SYRINGE 10 ML IV SCH ×2 (09:38→22:23)
[2017-09-21] MEDS: cefTRIAXone 2 GM in NACL 0.9% 20 ML IV SCH (09:40)
[2017-09-21] MEDS ORDERED: COUMADIN PO SCH (10:00)
[2017-09-21] MEDS ORDERED: ROCEPHIN/NS 2 GM/100 ML 2 GM/100 ML BAG IV SCH (10:00)
[2017-09-21] MEDS ORDERED: SIMPLE SYRUP FEEDTUBE PRN ×2 (12:40)
[2017-09-21] MEDS ORDERED: PANCREAZE DR 10,500 UNIT FEEDTUBE PRN (12:40)
[2017-09-21] MEDS ORDERED: SODIUM BICARBONATE FEEDTUBE PRN (12:40)
[2017-09-21] MEDS: COUMADIN PO SCH (17:58)
[2017-09-21] MEDS: NACL 0.45% 1000 ML 1,000 ML IV SCH (22:21)
[2017-09-21] MEDS: LANTUS SUB-Q SCH (22:22)
[2017-09-22 05:50] LABS: INR 2.87 (0.87-1.13)
[2017-09-22] MEDS: DUONEB *Not for PRN Use IH SCH ×3 (07:35→19:46)
[2017-09-22] MEDS: PROAMATINE PO SCH ×3 (09:01→21:35)
--- NOTE | 2017-09-22 09:26 | Progress Note ---
Assessment and Plan Assessment and plan: --SIRS; IV antibiotics , supportive care --Coag-negative staph bacteremia, 1: 2 blood cultures, continue antibiotics, repeat cultures Consider ID evaluation if needed --History of cardiopulmonary arrest 2 years ago/anoxic encephalopathy Continue supportive care --Status post trach and PEG; Tracheostomy care, nebulizers treatments as needed, oxygen PEG feeds per protocol --Sepsis due to urinary tract infection Continue empiric antibiotics, gm negative urine cultures, follow sensitivities --Stage IV sacral decubitus ulcer; wound and supportive care --Chronic anticoagulation on Coumadin; unknown diagnosis, target INR 2-3 --2 diabetes mellitus; Accu-Chek sliding scale coverage and ADA diet and insulin --DVT prophylaxis; Lovenox --DO NOT RESUSCITATE status DC planning. Case management; transfer back to intermediate when medically stable Plan of care discussed with the patient's nurse Disposition; transfer back to intermediate when medically stable Consider hospice History Interval history: Patient seen and examined medical records reviewed No new events reported by the nursing Patient's blood cultures are positive for coag-negative staph Probably contamination, repeat blood cultures, follow sensitivities patient is unresponsive Vital signs stable Hospitalist Physical - Constitutional Vitals: Temp Pulse Resp BP Pulse Ox 98.9 F 64 22 126/53 99 09/22/17 07:37 09/22/17 07:37 09/22/17 07:37 09/22/17 07:37 09/22/17 07:37 General appearance: Present: no acute distress, cachectic, disheveled, other ( post trach and PEG) - EENT Eyes: Present: PERRL, EOM intact ENT: other (tracheostomy T piece) - Neck Neck: Present: supple - Respiratory Respiratory effort: normal Respiratory: bilateral: diminished, rhonchi, negative: rales, wheezing - Cardiovascular Rhythm: regular Heart Sounds: Present: S1 & S2 - Extremities Extremities: no ischemia, No edema - Abdominal General gastrointestinal: soft, non-tender, non-distended, normal bowel sounds, other (PEG tube in place) - Integumentary Integumentary: Present: clear, warm - Psychiatric Psychiatric: other (unresponsive) - Neurologic Neurologic: other (unresponsive) Results - Labs CBC & Chem 7: 09/20/17 15:54 09/20/17 15:54 Labs: Laboratory Last Values WBC 8.7 K/mm3 (4.5-11.0) 09/20/17 15:54 RBC 4.71 M/mm3 (3.65-5.03) 09/20/17 15:54 Hgb 12.6 gm/dl (10.1-14.3) 09/20/17 15:54 Hct 39.0 % (30.3-42.9) 09/20/17 15:54 MCV 83 fl (79-97) 09/20/17 15:54 MCH 27 pg (28-32) L 09/20/17 15:54 MCHC 32 % (30-34) 09/20/17 15:54 RDW 21.4 % (13.2-15.2) H 09/20/17 15:54 Plt Count 228 K/mm3 (140-440) 09/20/17 15:54 Lymph % (Auto) 22.2 % (13.4-35.0) 09/20/17 15:54 [place] % (Auto) 8.7 % (0.0-7.3) H 09/20/17 15:54 Eos % (Auto) 1.4 % (0.0-4.3) 09/20/17 15:54 Baso % (Auto) 0.4 % (0.0-1.8) 09/20/17 15:54 Lymph # 1.9 K/mm3 (1.2-5.4) 09/20/17 15:54 [place] # 0.8 K/mm3 (0.0-0.8) 09/20/17 15:54 Eos # 0.1 K/mm3 (0.0-0.4) 09/20/17 15:54 Baso # 0.0 K/mm3 (0.0-0.1) 09/20/17 15:54 Seg Neutrophils % 67.3 % (40.0-70.0) 09/20/17 15:54 Seg Neutrophils # 5.9 K/mm3 (1.8-7.7) 09/20/17 15:54 PT 32.1 Sec. (12.2-14.9) H 09/22/17 04:47 INR 2.87 (0.87-1.13) H 09/22/17 04:47 VBG pH 7.471 (7.320-7.420) H 09/20/17 15:54 Sodium 141 mmol/L (137-145) 09/20/17 15:54 Potassium 3.8 mmol/L (3.6-5.0) 09/20/17 15:54 Chloride 102.7 mmol/L (98-107) 09/20/17 15:54 Carbon Dioxide 26 mmol/L (22-30) 09/20/17 15:54 Anion Gap 16 mmol/L 09/20/17 15:54 BUN 21 mg/dL (7-17) H 09/20/17 15:54 Creatinine 0.5 mg/dL (0.7-1.2) L 09/20/17 15:54 Estimated GFR > 60 ml/min 09/20/17 15:54 BUN/Creatinine Ratio 42 % 09/20/17 15:54 Glucose 172 mg/dL (65-100) H 09/20/17 15:54 POC Glucose 78 (70-105) 09/22/17 07:28 Lactic Acid 1.30 mmol/L (0.7-2.0) 09/20/17 18:16 Calcium 9.2 mg/dL (8.4-10.2) 09/20/17 15:54 Total Bilirubin 0.50 mg/dL (0.1-1.2) 09/20/17 15:54 AST 27 units/L (5-40) 09/20/17 15:54 ALT 31 units/L (7-56) 09/20/17 15:54 Alkaline Phosphatase 76 units/L (35-129) 09/20/17 15:54 Total Protein 7.2 g/dL (6.3-8.2) 09/20/17 15:54 Albumin 3.1 g/dL (3.9-5) L 09/20/17 15:54 Albumin/Globulin Ratio 0.8 % 09/20/17 15:54 Urine Color Yellow (Yellow) 09/20/17 17:18 Urine Turbidity Clear (Clear) 09/20/17 17:18 Urine pH 6.0 (5.0-7.0) 09/20/17 17:18 Ur Specific [place] 1.024 (1.003-1.030) 09/20/17 17:18 Urine Protein 30 mg/dl mg/dL (Negative) 09/20/17 17:18 Urine Glucose (UA) Neg mg/dL (Negative) 09/20/17 17:18 Urine Ketones Neg mg/dL (Negative) 09/20/17 17:18 Urine Blood Sm (Negative) 09/20/17 17:18 Urine Nitrite Pos (Negative) 09/20/17 17:18 Urine Bilirubin Neg (Negative) 09/20/17 17:18 Urine Urobilinogen < 2.0 mg/dL (<2.0) 09/20/17 17:18 Ur Leukocyte Esterase Lg (Negative) 09/20/17 17:18 Urine WBC (Auto) > 182.0 /HPF (0.0-6.0) H 09/20/17 17:18 Urine RBC (Auto) 60.0 /HPF (0.0-6.0) 09/20/17 17:18 Urine Bacteria (Auto) 4+ /HPF (Negative) 09/20/17 17:18 Amorphous Crystals Few 09/20/17 17:18 Urine Mucus 3+ /HPF 09/20/17 17:18
[2017-09-22] MEDS: PEPCID PO SCH ×2 (09:51→21:35)
[2017-09-22] MEDS: ROBINUL PO SCH ×2 (09:51→21:35)
[2017-09-22] MEDS: cefTRIAXone 2 GM in NACL 0.9% 20 ML IV SCH (09:55)
[2017-09-22] MEDS: SODIUM CHLORIDE FLUSH SYRINGE 10 ML IV SCH ×2 (09:56→21:36)
[2017-09-22] MEDS ORDERED: COUMADIN PO SCH (17:00)
[2017-09-22] MEDS: LANTUS SUB-Q SCH (21:35)
--- NOTE | 2017-09-23 08:13 | Progress Note ---
Assessment and Plan Assessment and plan: --SIRS; IV antibiotics , supportive care --Coag-negative staph bacteremia, 1: 2 blood cultures, probably contamination continue antibiotics, repeat cultures, ID evaluation if needed --History of cardiopulmonary arrest 2 years ago/anoxic encephalopathy Continue supportive care --Status post trach and PEG; Tracheostomy care, nebulizers treatments as needed, oxygen PEG feeds per protocol --Sepsis due to urinary tract infection; gram-negative rods Continue empiric antibiotics, follow sensitivities --Stage IV sacral decubitus ulcer; wound and supportive care --Chronic anticoagulation on Coumadin; unknown diagnosis, target INR 2-3 --2 diabetes mellitus; Accu-Chek sliding scale coverage and ADA diet and insulin --DVT prophylaxis; Lovenox --DO NOT RESUSCITATE status DC planning. Case management; transfer back to jail when medically stable Plan of care discussed with the patient's nurse Disposition; transfer back to jail when medically stable Consider hospice History Interval history: patient Seen and examined medical records. 1Blood stained urine in the bag Positive blood and urine cultures Patient is unresponsive status post PEG Vital signs reviewed Hospitalist Physical - Constitutional Vitals: Temp Pulse Resp BP Pulse Ox 99.0 F 103 H 20 147/87 100 09/23/17 06:29 09/23/17 06:29 09/23/17 06:29 09/23/17 06:29 09/23/17 06:29 General appearance: Present: no acute distress, cachectic, disheveled, other ( post trach and PEG) - EENT Eyes: Absent: scleral icterus - Neck Neck: Present: other - Respiratory Respiratory effort: normal Respiratory: bilateral: diminished, rhonchi, negative: rales, wheezing - Cardiovascular Rhythm: regular Heart Sounds: Present: S1 & S2 - Extremities Extremities: abnormal ( Contracted) Extremity abnormal: edema - Abdominal General gastrointestinal: soft, non-tender, non-distended, normal bowel sounds, other (PEG in place and functioning.) - Integumentary Integumentary: Present: clear, warm - Psychiatric Psychiatric: other (unresponsive) - Neurologic Neurologic: other (encephalopathy) Results - Labs CBC & Chem 7: 09/20/17 15:54 09/24/17 07:58 Labs: Laboratory Last Values WBC 8.7 K/mm3 (4.5-11.0) 09/20/17 15:54 RBC 4.71 M/mm3 (3.65-5.03) 09/20/17 15:54 Hgb 12.6 gm/dl (10.1-14.3) 09/20/17 15:54 Hct 39.0 % (30.3-42.9) 09/20/17 15:54 MCV 83 fl (79-97) 09/20/17 15:54 MCH 27 pg (28-32) L 09/20/17 15:54 MCHC 32 % (30-34) 09/20/17 15:54 RDW 21.4 % (13.2-15.2) H 09/20/17 15:54 Plt Count 228 K/mm3 (140-440) 09/20/17 15:54 Lymph % (Auto) 22.2 % (13.4-35.0) 09/20/17 15:54 [place] % (Auto) 8.7 % (0.0-7.3) H 09/20/17 15:54 Eos % (Auto) 1.4 % (0.0-4.3) 09/20/17 15:54 Baso % (Auto) 0.4 % (0.0-1.8) 09/20/17 15:54 Lymph # 1.9 K/mm3 (1.2-5.4) 09/20/17 15:54 [place] # 0.8 K/mm3 (0.0-0.8) 09/20/17 15:54 Eos # 0.1 K/mm3 (0.0-0.4) 09/20/17 15:54 Baso # 0.0 K/mm3 (0.0-0.1) 09/20/17 15:54 Seg Neutrophils % 67.3 % (40.0-70.0) 09/20/17 15:54 Seg Neutrophils # 5.9 K/mm3 (1.8-7.7) 09/20/17 15:54 PT 32.1 Sec. (12.2-14.9) H 09/22/17 04:47 INR 2.87 (0.87-1.13) H 09/22/17 04:47 VBG pH 7.471 (7.320-7.420) H 09/20/17 15:54 Sodium 141 mmol/L (137-145) 09/20/17 15:54 Potassium 3.8 mmol/L (3.6-5.0) 09/20/17 15:54 Chloride 102.7 mmol/L (98-107) 09/20/17 15:54 Carbon Dioxide 26 mmol/L (22-30) 09/20/17 15:54 Anion Gap 16 mmol/L 09/20/17 15:54 BUN 21 mg/dL (7-17) H 09/20/17 15:54 Creatinine 0.5 mg/dL (0.7-1.2) L 09/20/17 15:54 Estimated GFR > 60 ml/min 09/20/17 15:54 BUN/Creatinine Ratio 42 % 09/20/17 15:54 Glucose 172 mg/dL (65-100) H 09/20/17 15:54 POC Glucose 100 (70-105) 09/23/17 06:18 Lactic Acid 1.30 mmol/L (0.7-2.0) 09/20/17 18:16 Calcium 9.2 mg/dL (8.4-10.2) 09/20/17 15:54 Total Bilirubin 0.50 mg/dL (0.1-1.2) 09/20/17 15:54 AST 27 units/L (5-40) 09/20/17 15:54 ALT 31 units/L (7-56) 09/20/17 15:54 Alkaline Phosphatase 76 units/L (35-129) 09/20/17 15:54 Total Protein 7.2 g/dL (6.3-8.2) 09/20/17 15:54 Albumin 3.1 g/dL (3.9-5) L 09/20/17 15:54 Albumin/Globulin Ratio 0.8 % 09/20/17 15:54 Urine Color Yellow (Yellow) 09/20/17 17:18 Urine Turbidity Clear (Clear) 09/20/17 17:18 Urine pH 6.0 (5.0-7.0) 09/20/17 17:18 Ur Specific [place] 1.024 (1.003-1.030) 09/20/17 17:18 Urine Protein 30 mg/dl mg/dL (Negative) 09/20/17 17:18 Urine Glucose (UA) Neg mg/dL (Negative) 09/20/17 17:18 Urine Ketones Neg mg/dL (Negative) 09/20/17 17:18 Urine Blood Sm (Negative) 09/20/17 17:18 Urine Nitrite Pos (Negative) 09/20/17 17:18 Urine Bilirubin Neg (Negative) 09/20/17 17:18 Urine Urobilinogen < 2.0 mg/dL (<2.0) 09/20/17 17:18 Ur Leukocyte Esterase Lg (Negative) 09/20/17 17:18 Urine WBC (Auto) > 182.0 /HPF (0.0-6.0) H 09/20/17 17:18 Urine RBC (Auto) 60.0 /HPF (0.0-6.0) 09/20/17 17:18 Urine Bacteria (Auto) 4+ /HPF (Negative) 09/20/17 17:18 Amorphous Crystals Few 09/20/17 17:18 Urine Mucus 3+ /HPF 09/20/17 17:18
[2017-09-23 08:24] LABS: INR 2.49 (0.87-1.13)
[2017-09-23] MEDS: PROAMATINE PO SCH ×3 (09:00→20:00)
[2017-09-23] MEDS: PEPCID PO SCH ×2 (09:24→23:12)
[2017-09-23] MEDS: SODIUM CHLORIDE FLUSH SYRINGE 10 ML IV SCH ×2 (09:25→23:15)
[2017-09-23] MEDS: cefTRIAXone 2 GM in NACL 0.9% 20 ML IV SCH (09:25)
[2017-09-23] MEDS: ROBINUL PO SCH ×2 (09:25→23:13)
[2017-09-23] MEDS: DUONEB *Not for PRN Use IH SCH ×3 (09:39→20:20)
[2017-09-23] MEDS ORDERED: VANCOMYCIN 1,250 MG in NACL 0.9% 250ML 250 ML IV ONE (10:00)
[2017-09-23] MEDS ORDERED: VANCOMYCIN PHARMACY TO DOSE IV SCH (10:00)
[2017-09-23] MEDS: NACL 0.45% 1000 ML 1,000 ML IV SCH (13:21)
[2017-09-23] MEDS ORDERED: PANCREAZE DR 10,500 UNIT FEEDTUBE PRN (17:13)
[2017-09-23] MEDS ORDERED: SIMPLE SYRUP FEEDTUBE PRN ×2 (17:13)
[2017-09-23] MEDS ORDERED: SODIUM BICARBONATE FEEDTUBE PRN (17:13)
--- NOTE | 2017-09-23 21:18 | Consultation ---
History of Present Illness - Reason for Consult Consult date: 09/23/17 [employer] bacteremia and GNR UTI Requesting physician: JAVY ATKINS - History of Present Illness 72 y/o female with hsitory of HTN, [place], DM, Schizophrenia, Anoxic brain injury S/ P Trach and Peg placement, chronic indwelling garcia in place; admitted on due to AMS/lethargy, hypotension, tachycardia, nausea and vomiting wih coffee ground emesis. Patient unable to provide a history she is non verbal at baseline. In the ED, initial temp 99.5, HR 118, BP 99/71, R22,WBC 8.7, Hg 12.6, Plat 228. Creat 0.5. UA 182 wbc, large LE. CXR neg. Garcia output had purulent drainage in the ED. Micro: Blood culture: 09/20 [employer] 3 of 4 bottles 09/22 ngtd Urine culture: 09/20 MDR E coli Past History Past Medical History: diabetes, hypertension Past Surgical History: hysterectomy, mastectomy, Other (Trach, Peg) Social history: single. denies: smoking, alcohol abuse, prescription drug abuse Family history: diabetes, hypertension Medications and Allergies Allergies Allergy/AdvReac Type Severity Reaction Status Date / Time No Known Allergies Allergy Unverified 09/30/13 14:18 Home Medications Medication Instructions Recorded Confirmed Last Taken Type Acetaminophen [Acetaminophen ER] 500 mg PO PRN PRN 07/29/17 09/21/17 Unknown History Glycopyrrolate [Robinul] 1 mg PO BID 07/29/17 09/21/17 Unknown History Ipratropium/Albuterol Sulfate 1 ampul IH Q4HR 07/29/17 09/21/17 Unknown History [DUONEB *Not for PRN Use*] Warfarin [Coumadin] 7.5 mg PO QDAY 07/29/17 09/21/17 Unknown History Warfarin [Coumadin] 10 mg PO 1XW 07/29/17 09/21/17 Unknown History Famotidine [Pepcid] 20 mg PO BID #60 tablet 08/07/17 09/21/17 Unknown Rx Insulin Glargine [Lantus VIAL] 10 units SUB-Q QHS #7 units 08/07/17 09/21/17 Unknown Rx Midodrine [Proamatine] 10 mg PO TID #30 tablet 08/07/17 09/21/17 Unknown Rx Active Meds: Active Medications Acetaminophen (Tylenol) 650 mg PO Q4H PRN PRN Reason: Pain MILD(1-3)/Fever >100.5/JOLLY Albuterol (Proventil) 2.5 mg IH Q4HRT PRN PRN Reason: Shortness Of Breath Albuterol/Ipratropium (Duoneb *Not For Prn Use*) 1 ampul IH TIDRT COUNT INCLUDES THE [facility] Last Admin: 09/23/17 20:20 Dose: 1 ampul Lipase/Protease/Amylase (Pancreaze Dr 10,500 Unit) 1 each FEEDTUBE PRN PRN PRN Reason: For Clogged Feeding Tube Famotidine (Pepcid) 20 mg PO BID COUNT INCLUDES THE [facility] Last Admin: 09/23/17 09:24 Dose: 20 mg Glycopyrrolate (Robinul) 1 mg PO BID COUNT INCLUDES THE [facility] Last Admin: 09/23/17 09:25 Dose: 1 mg Sodium Chloride (Nacl 0.45% 1000 Ml) 1,000 mls @ 42 mls/hr IV DIRECT COUNT INCLUDES THE [facility] Last Admin: 09/23/17 13:21 Dose: 42 mls/hr Ceftriaxone Sodium 2 gm/ (Sodium Chloride) 20 mls @ 2 mls/min IV Q24HR COUNT INCLUDES THE [facility] Last Admin: 09/23/17 09:25 Dose: 2 mls/min Vancomycin HCl (Vancomycin/Ns 1 Gm/250 Ml) 1 gm in 250 mls @ 166.667 mls/hr IV Q24HR COUNT INCLUDES THE [facility] Insulin Glargine (Lantus) 10 units SUB-Q QHS COUNT INCLUDES THE [facility] Last Admin: 09/22/17 21:35 Dose: 10 units Midodrine (Proamatine) 10 mg PO TID COUNT INCLUDES THE [facility] Last Admin: 09/23/17 13:23 Dose: 10 mg Ondansetron HCl (Zofran) 4 mg IV Q8H PRN PRN Reason: Nausea And Vomiting Simple Syrup (Simple Syrup) 15 ml FEEDTUBE PRN PRN PRN Reason: Hypoglycemia Simple Syrup (Simple Syrup) 30 ml FEEDTUBE PRN PRN PRN Reason: Hypoglycemia Sodium Bicarbonate (Sodium Bicarbonate) 325 mg FEEDTUBE PRN PRN PRN Reason: For Clogged Feeding Tube Sodium Chloride (Sodium Chloride Flush Syringe 10 Ml) 10 ml IV BID TIMMY Last Admin: 09/23/17 09:25 Dose: 10 ml Sodium Chloride (Sodium Chloride Flush Syringe 10 Ml) 10 ml IV PRN PRN PRN Reason: LINE FLUSH Vancomycin HCl (Vancomycin Pharmacy To Dose) 1 each IV PKCONSULT TIMMY Review of Systems ROS unobtainable: due to mental status Physical Examination - Physical Exam Narrative exam: Lethargic in NAD in position NC/AT RYDER, unable to eval OP Neck +Trach with thick yellowish secretion CV RRR Lungs distant Abd limited exam + Gtube Ext contracted - very difficult exam Neuro non verbal lethargic - Constitutional Vitals: Vital Signs Temp Pulse Resp BP Pulse Ox 98.7 F 85 18 111/58 99 09/23/17 20:01 09/23/17 20:31 09/23/17 20:31 09/23/17 20:01 09/23/17 20:17 Temperature -Last 24 Hours Temperature 98.7 F Temperature 99.2 F Temperature 99.0 F Results - Labs CBC & Chem 7: 09/20/17 15:54 09/20/17 15:54 Labs: Abnormal lab results 09/23/17 09/23/17 Range/Units 07:30 17:32 PT 28.6 H (12.2-14.9) Sec. INR 2.49 H (0.87-1.13) POC Glucose 113 H (70-105) Assessment and Plan Assessment: 1) Sepsis: present on admission, manifested with low grade fever, tachycardia, hypotension; etiology - multifactorial CA-UTI +/- bacteremia 2) [employer] bacteremia: real vs. contaminant -Blood cx 5/6 positive 3 of 4 bottles -Blood cx 5/8 no growth so far 3) CA-UTI: with MDR E coli 4) History of brain anoxic injury 5) Chronic indwelling garcia 6) Presumed GI bleed: fecal occult negative Plan: -continue ceftriaxone and vancomycin for now -f/u blood cx ID and MICs if the 3 bottles grows same [employer] then it would be deemed to be real bacteremia and then a TTE should be ordered -contact isolation due to MDR E coli -exchange garcia if it has not be done Very poor prognosis, consider palliative care Rosalva Lynn MD
[2017-09-23] MEDS: LANTUS SUB-Q SCH (23:15)
[2017-09-24] MEDS: PROAMATINE PO SCH ×3 (07:59→21:18)
[2017-09-24 09:00] LABS: BUN/Creatinine Ratio 37; Blood Urea Nitrogen 11 mg/dL (7-17); Hemolysis Index 104
[2017-09-24 09:02] LABS: Calcium 7.4 mg/dL (8.4-10.2)
[2017-09-24] MEDS: DUONEB *Not for PRN Use IH SCH ×3 (09:29→22:36)
[2017-09-24] MEDS: cefTRIAXone 2 GM in NACL 0.9% 20 ML IV SCH (09:30)
[2017-09-24] MEDS: PEPCID PO SCH ×2 (09:31→21:18)
[2017-09-24] MEDS: ROBINUL PO SCH ×2 (09:31→21:18)
[2017-09-24] MEDS: VANCOMYCIN/NS 1 GM/250 ML 1 GM/250 ML BAG IV SCH (09:32)
[2017-09-24] MEDS: SODIUM CHLORIDE FLUSH SYRINGE 10 ML IV SCH ×2 (09:33→22:41)
--- NOTE | 2017-09-24 09:36 | Progress Note ---
Assessment and Plan Assessment and plan: --Hyponatremia: Replacement therapy --SIRS; IV antibiotics , supportive care --Sepsis due to urinary tract infection; E coli Continue Rocephen --Coag-negative staph bacteremia, 1: 2 blood cultures, probably contamination ID following, continue Vanco, followed repeat cultures --History of cardiopulmonary arrest 2 years ago/anoxic encephalopathy, supportive care --Status post trach and PEG; Tracheostomy care, nebulizers treatments as needed, oxygen, PEG feeds per protocol --Stage IV sacral decubitus ulcer; wound and supportive care --Chronic anticoagulation on Coumadin; unknown diagnosis, DC Coumadin --2 diabetes mellitus; Accu-Chek sliding scale coverage and ADA diet and insulin --DVT prophylaxis; Lovenox --DO NOT RESUSCITATE status DC planning. Case management; transfer back to [facility] when medically stable Plan of care discussed with the patient's nurse Disposition; transfer back to [facility] when medically stable Consider hospice History Interval history: 72-year-old patient [facility] resident status post trach and PEG, DO NOT RESUSCITATE status Was admitted through emergency room with SIRS, sepsis due to urinary tract infection Patient's blood cultures and urine cultures are positive, evaluation by ID Placed on appropriate antibiotics Patient seen and examined medical records reviewed Patient is noncommunicative, chronically ill-looking No new events reported by the nursing Vital signs reviewed Hospitalist Physical - Constitutional Vitals: Temp Pulse Resp BP Pulse Ox 99.0 F 92 H 18 138/79 98 09/24/17 06:56 09/24/17 06:56 09/24/17 06:56 09/24/17 06:56 09/24/17 06:56 General appearance: Present: no acute distress, cachectic, disheveled, other ( post trach and PEG) - EENT Eyes: Present: PERRL, EOM intact - Neck Neck: Present: supple, normal ROM - Respiratory Respiratory effort: normal Respiratory: bilateral: diminished, rhonchi, negative: rales, wheezing - Cardiovascular Rhythm: regular Heart Sounds: Present: S1 & S2 - Extremities Extremities: no ischemia, abnormal (contracted) Extremity abnormal: edema - Abdominal General gastrointestinal: soft, non-tender, non-distended, normal bowel sounds, other (PEG tube in place) - Integumentary Integumentary: Present: clear, warm - Psychiatric Psychiatric: other (noncommunicative) - Neurologic Neurologic: other (noncommunicative) Results - Labs CBC & Chem 7: 09/20/17 15:54 05 07:58 Labs: Laboratory Last Values WBC 8.7 K/mm3 (4.5-11.0) 09/20/17 15:54 RBC 4.71 M/mm3 (3.65-5.03) 09/20/17 15:54 Hgb 12.6 gm/dl (10.1-14.3) 09/20/17 15:54 Hct 39.0 % (30.3-42.9) 09/20/17 15:54 MCV 83 fl (79-97) 09/20/17 15:54 MCH 27 pg (28-32) L 09/20/17 15:54 MCHC 32 % (30-34) 09/20/17 15:54 RDW 21.4 % (13.2-15.2) H 09/20/17 15:54 Plt Count 228 K/mm3 (140-440) 09/20/17 15:54 Lymph % (Auto) 22.2 % (13.4-35.0) 09/20/17 15:54 [place] % (Auto) 8.7 % (0.0-7.3) H 09/20/17 15:54 Eos % (Auto) 1.4 % (0.0-4.3) 09/20/17 15:54 Baso % (Auto) 0.4 % (0.0-1.8) 09/20/17 15:54 Lymph # 1.9 K/mm3 (1.2-5.4) 09/20/17 15:54 [place] # 0.8 K/mm3 (0.0-0.8) 09/20/17 15:54 Eos # 0.1 K/mm3 (0.0-0.4) 09/20/17 15:54 Baso # 0.0 K/mm3 (0.0-0.1) 09/20/17 15:54 Seg Neutrophils % 67.3 % (40.0-70.0) 09/20/17 15:54 Seg Neutrophils # 5.9 K/mm3 (1.8-7.7) 09/20/17 15:54 PT 28.6 Sec. (12.2-14.9) H 09/23/17 07:30 INR 2.49 (0.87-1.13) H 09/23/17 07:30 VBG pH 7.471 (7.320-7.420) H 09/20/17 15:54 Sodium 129 mmol/L (137-145) L D 09/24/17 07:58 Potassium 3.5 mmol/L (3.6-5.0) L 09/24/17 07:58 Chloride 95.5 mmol/L (98-107) L 09/24/17 07:58 Carbon Dioxide 21 mmol/L (22-30) L 09/24/17 07:58 Anion Gap 16 mmol/L 09/24/17 07:58 BUN 11 mg/dL (7-17) 09/24/17 07:58 Creatinine 0.3 mg/dL (0.7-1.2) L 09/24/17 07:58 Estimated GFR > 60 ml/min 09/24/17 07:58 BUN/Creatinine Ratio 37 % 09/24/17 07:58 Glucose 83 mg/dL (65-100) 09/24/17 07:58 POC Glucose 95 (70-105) 09/24/17 01:48 Lactic Acid 1.30 mmol/L (0.7-2.0) 09/20/17 18:16 Calcium 7.4 mg/dL (8.4-10.2) L D 09/24/17 07:58 Total Bilirubin 0.50 mg/dL (0.1-1.2) 09/20/17 15:54 AST 27 units/L (5-40) 09/20/17 15:54 ALT 31 units/L (7-56) 09/20/17 15:54 Alkaline Phosphatase 76 units/L (35-129) 09/20/17 15:54 Total Protein 7.2 g/dL (6.3-8.2) 09/20/17 15:54 Albumin 3.1 g/dL (3.9-5) L 09/20/17 15:54 Albumin/Globulin Ratio 0.8 % 09/20/17 15:54 Urine Color Yellow (Yellow) 09/20/17 17:18 Urine Turbidity Clear (Clear) 09/20/17 17:18 Urine pH 6.0 (5.0-7.0) 09/20/17 17:18 Ur Specific [place] 1.024 (1.003-1.030) 09/20/17 17:18 Urine Protein 30 mg/dl mg/dL (Negative) 09/20/17 17:18 Urine Glucose (UA) Neg mg/dL (Negative) 09/20/17 17:18 Urine Ketones Neg mg/dL (Negative) 09/20/17 17:18 Urine Blood Sm (Negative) 09/20/17 17:18 Urine Nitrite Pos (Negative) 09/20/17 17:18 Urine Bilirubin Neg (Negative) 09/20/17 17:18 Urine Urobilinogen < 2.0 mg/dL (<2.0) 09/20/17 17:18 Ur Leukocyte Esterase Lg (Negative) 09/20/17 17:18 Urine WBC (Auto) > 182.0 /HPF (0.0-6.0) H 09/20/17 17:18 Urine RBC (Auto) 60.0 /HPF (0.0-6.0) 09/20/17 17:18 Urine Bacteria (Auto) 4+ /HPF (Negative) 09/20/17 17:18 Amorphous Crystals Few 09/20/17 17:18 Urine Mucus 3+ /HPF 09/20/17 17:18
[2017-09-24 09:47] LABS: INR 1.89 (0.87-1.13)
[2017-09-24] MEDS ORDERED: POTASSIUM CHLORIDE FEEDTUBE NR (10:00)
[2017-09-24] MEDS: NACL 0.9% 1000 ML 1,000 ML IV SCH ×2 (10:16→21:27)
[2017-09-24] MEDS: LANTUS SUB-Q SCH (22:39)
[2017-09-25 06:04] LABS: INR 1.54 (0.87-1.13)
[2017-09-25] MEDS: PROAMATINE PO SCH ×3 (07:21→23:39)
[2017-09-25] MEDS: NACL 0.9% 1000 ML 1,000 ML IV SCH ×2 (07:37→19:35)
[2017-09-25] MEDS: DUONEB *Not for PRN Use IH SCH ×3 (07:37→19:34)
[2017-09-25] MEDS: cefTRIAXone 2 GM in NACL 0.9% 20 ML IV SCH (09:35)
[2017-09-25] MEDS: ROBINUL PO SCH ×2 (09:36→22:00)
[2017-09-25] MEDS: PEPCID PO SCH ×2 (09:37→22:00)
[2017-09-25] MEDS: SODIUM CHLORIDE FLUSH SYRINGE 10 ML IV SCH (09:38)
[2017-09-25] MEDS: VANCOMYCIN/NS 1 GM/250 ML 1 GM/250 ML BAG IV SCH (09:39)
--- NOTE | 2017-09-25 10:01 | Progress Note ---
Assessment and Plan Assessment: 1) Sepsis: better; etiology - multifactorial CA-UTI +/- bacteremia 2) VESSEL SLAGMAN bacteremia: real vs. contaminant -Blood cx 5/6 positive 3 of 4 bottles -Blood cx 8 no growth so far 3) CA-UTI: with MDR E coli 4) History of brain anoxic injury 5) Chronic indwelling garcia 6) Presumed GI bleed: fecal occult negative Plan: -continue ceftriaxone and vancomycin for now -f/u blood cx ID and MICs if the 3 bottles grows same VESSEL SLAGMAN then it would be deemed to be real bacteremia and then a TTE should be ordered. If isolates are all different then it would be deemed as a contaminant so will stop vanco -contact isolation due to MDR E coli -exchange garcia if it has not be done I will be available over the phone this weekend. I will see back on Thursday. Very poor prognosis, consider palliative care Rosalva Lynn MD Subjective Date of service: 09/25/17 Principal diagnosis: UTI Interval history: Remains non verbal in a position contracted no fever Micro: Blood culture: 6 VESSEL SLAGMAN 3 of 4 bottles (one identified as Staph hominis) 09/22 ngtd Urine culture: 5/6 MDR E coli Objective - Exam Narrative Exam: Lethargic in NAD in position NC/AT RYDER, unable to eval OP Neck +Trach with thick yellowish secretion CV RRR Lungs distant Abd limited exam + Gtube Ext contracted - very difficult exam Neuro non verbal lethargic - Constitutional Vitals: Vital Signs Temp Pulse Resp BP Pulse Ox 98.9 F 100 H 22 156/92 100 09/25/17 07:34 09/25/17 07:34 09/25/17 07:34 09/25/17 07:34 09/25/17 07:34 Temperature -Last 24 Hours Temperature 98.9 F Temperature 98.6 F Temperature 98.9 F Temperature 99.0 F - Labs CBC & Chem 7: 09/20/17 15:54 09/24/17 07:58 Labs: Abnormal lab results 09/25/17 09/25/17 Range/Units 00:28 05:03 PT 19.4 H (12.2-14.9) Sec. INR 1.54 H (0.87-1.13) POC Glucose 114 H (70-105)
--- NOTE | 2017-09-25 11:18 | Progress Note ---
Assessment and Plan Assessment and plan: First day caring for patient Ms. Astorga is a 72 y/o woman from [facility] with history of HTN, [place], DM, Schizophrenia, Anoxic brain injury S/P Trach and Peg placement after cardiac arrest approximately 2 yrs ago , chronic indwelling garcia in place; admitted on 09/20/17 due to AMS/lethargy, hypotension, tachycardia, nausea and vomiting wih coffee ground emesis. Patient unable to provide a history she is non verbal at baseline. In the ED, initial temp 99.5, HR 118, BP 99/71, R22,WBC 8.7, Hg 12.6, Plat 228. Creat 0.5. UA 182 wbc, large LE. CXR neg. Garcia output had purulent drainage in the ED. Micro: Blood culture: 09/20 INSURANCE CLAIMS ANALYST 3 of 4 bottles, 09/22 ngtd Urine culture: 09/20 MDR E coli -Chronic hypoxic respiratory failure: continue trach care, treat with nasal canula o2 -Sepsis, poa due to UTI: treat with abx, ivf -Coagulase negative Staphylococcus in 3 of 4 bottles: final report pending, if all the blood culture are the same then get NAZARIO r/o Endocarditis, treat with iv vancomycin -E. coli UTI: continue iv rocephin, ID is following -Acute encephalopathy, poa -Functional quadplegia due to anoxic brain injury -Hyponatremia: monitor sodium levels closely -Status post trach and PEG; Tracheostomy care, nebulizers treatments as needed, oxygen, PEG feeds per protocol -Stage IV sacral decubitus ulcer; wound and supportive care -Chronic anticoagulation on Coumadin; unknown diagnosis, DC Coumadin -Type 2 diabetes mellitus; Accu-Chek sliding scale coverage and ADA diet and insulin -DVT prophylaxis; Lovenox DNR Disposition: continue inpatient care, awaiting blood culture results History Interval history: Patient was seen and examined. Follow-up on current diagnosis AMS. Overnight uneventful. Patient is nonverbal. Imaging, nursing note, chart, labs and old chart reviewed. Discussed with nursing. Hospitalist Physical - Physical exam Narrative exam: GEN: severe disabled, semi vegatative state with eyes open but not focus HEENT: pupils disjoined NECK: trach in place CVS/HEART: RRR, normal S1S2, pulses present bilaterally CHEST/LUNGS: CTA B, Symmetrical chest expansion, good air entry bilaterally GI/Abdomen: soft, NTND, peg in place, good bowel sounds, no guarding or rebound /Bladder: no suprapubic tenderness, no CVA or paraspinal tenderness EXT/Skin: contacted in position, MSK: no movement Neuro: CN 2-12 grossly intact, doesn't follow commands Psych: confused - Constitutional Vitals: Temp Pulse Resp BP Pulse Ox 98.9 F 85 18 156/92 100 09/25/17 07:34 09/25/17 10:00 09/25/17 10:00 09/25/17 07:34 09/25/17 10:00 General appearance: Present: no acute distress, cachectic, disheveled, other ( post trach and PEG) Results - Labs CBC & Chem 7: 09/20/17 15:54 09/24/17 07:58 Labs: Laboratory Last Values WBC 8.7 K/mm3 (4.5-11.0) 09/20/17 15:54 RBC 4.71 M/mm3 (3.65-5.03) 09/20/17 15:54 Hgb 12.6 gm/dl (10.1-14.3) 09/20/17 15:54 Hct 39.0 % (30.3-42.9) 09/20/17 15:54 MCV 83 fl (79-97) 09/20/17 15:54 MCH 27 pg (28-32) L 09/20/17 15:54 MCHC 32 % (30-34) 09/20/17 15:54 RDW 21.4 % (13.2-15.2) H 09/20/17 15:54 Plt Count 228 K/mm3 (140-440) 09/20/17 15:54 Lymph % (Auto) 22.2 % (13.4-35.0) 09/20/17 15:54 [place] % (Auto) 8.7 % (0.0-7.3) H 09/20/17 15:54 Eos % (Auto) 1.4 % (0.0-4.3) 09/20/17 15:54 Baso % (Auto) 0.4 % (0.0-1.8) 09/20/17 15:54 Lymph # 1.9 K/mm3 (1.2-5.4) 09/20/17 15:54 [place] # 0.8 K/mm3 (0.0-0.8) 09/20/17 15:54 Eos # 0.1 K/mm3 (0.0-0.4) 09/20/17 15:54 Baso # 0.0 K/mm3 (0.0-0.1) 09/20/17 15:54 Seg Neutrophils % 67.3 % (40.0-70.0) 09/20/17 15:54 Seg Neutrophils # 5.9 K/mm3 (1.8-7.7) 09/20/17 15:54 PT 19.4 Sec. (12.2-14.9) H 09/25/17 05:03 INR 1.54 (0.87-1.13) H 09/25/17 05:03 VBG pH 7.471 (7.320-7.420) H 09/20/17 15:54 Sodium 129 mmol/L (137-145) L D 09/24/17 07:58 Potassium 3.5 mmol/L (3.6-5.0) L 09/24/17 07:58 Chloride 95.5 mmol/L (98-107) L 09/24/17 07:58 Carbon Dioxide 21 mmol/L (22-30) L 09/24/17 07:58 Anion Gap 16 mmol/L 09/24/17 07:58 BUN 11 mg/dL (7-17) 09/24/17 07:58 Creatinine 0.3 mg/dL (0.7-1.2) L 09/24/17 07:58 Estimated GFR > 60 ml/min 09/24/17 07:58 BUN/Creatinine Ratio 37 % 09/24/17 07:58 Glucose 83 mg/dL (65-100) 09/24/17 07:58 POC Glucose 90 (70-105) 09/25/17 06:18 Lactic Acid 1.30 mmol/L (0.7-2.0) 09/20/17 18:16 Calcium 7.4 mg/dL (8.4-10.2) L D 09/24/17 07:58 Total Bilirubin 0.50 mg/dL (0.1-1.2) 09/20/17 15:54 AST 27 units/L (5-40) 09/20/17 15:54 ALT 31 units/L (7-56) 09/20/17 15:54 Alkaline Phosphatase 76 units/L (35-129) 09/20/17 15:54 Total Protein 7.2 g/dL (6.3-8.2) 09/20/17 15:54 Albumin 3.1 g/dL (3.9-5) L 09/20/17 15:54 Albumin/Globulin Ratio 0.8 % 09/20/17 15:54 Urine Color Yellow (Yellow) 09/20/17 17:18 Urine Turbidity Clear (Clear) 09/20/17 17:18 Urine pH 6.0 (5.0-7.0) 09/20/17 17:18 Ur Specific [place] 1.024 (1.003-1.030) 09/20/17 17:18 Urine Protein 30 mg/dl mg/dL (Negative) 09/20/17 17:18 Urine Glucose (UA) Neg mg/dL (Negative) 09/20/17 17:18 Urine Ketones Neg mg/dL (Negative) 09/20/17 17:18 Urine Blood Sm (Negative) 09/20/17 17:18 Urine Nitrite Pos (Negative) 09/20/17 17:18 Urine Bilirubin Neg (Negative) 09/20/17 17:18 Urine Urobilinogen < 2.0 mg/dL (<2.0) 09/20/17 17:18 Ur Leukocyte Esterase Lg (Negative) 09/20/17 17:18 Urine WBC (Auto) > 182.0 /HPF (0.0-6.0) H 09/20/17 17:18 Urine RBC (Auto) 60.0 /HPF (0.0-6.0) 09/20/17 17:18 Urine Bacteria (Auto) 4+ /HPF (Negative) 09/20/17 17:18 Amorphous Crystals Few 09/20/17 17:18 Urine Mucus 3+ /HPF 09/20/17 17:18
[2017-09-26 07:33] LABS: INR 1.13 (0.87-1.13)
[2017-09-26] MEDS: LANTUS SUB-Q SCH ×2 (08:17→21:13)
[2017-09-26] MEDS: DUONEB *Not for PRN Use IH SCH ×3 (08:25→20:30)
[2017-09-26] MEDS: PROAMATINE PO SCH ×3 (08:31→20:29)
--- NOTE | 2017-09-26 11:07 | Progress Note ---
Assessment and Plan Assessment and plan: Ms. Astorga is a 72 y/o woman from [facility] with history of HTN, [place], DM, Schizophrenia, Anoxic brain injury S/P Trach and Peg placement after cardiac arrest approximately 2 yrs ago , chronic indwelling garcia in place; admitted on 09/20/17 due to AMS/lethargy, hypotension, tachycardia, nausea and vomiting wih coffee ground emesis. Patient unable to provide a history she is non verbal at baseline. In the ED, initial temp 99.5, HR 118, BP 99/71, R22,WBC 8.7, Hg 12.6, Plat 228. Creat 0.5. UA 182 wbc, large LE. CXR neg. Garcia output had purulent drainage in the ED. Micro: Blood culture: 09/20 CARDER BLANKETS 3 of 4 bottles, 09/22 ngtd Urine culture: 09/20 MDR E coli -Chronic hypoxic respiratory failure: continue trach care, treat with nasal canula o2 -Sepsis, poa due to UTI: treat with abx, ivf -Coagulase negative Staphylococcus in 3 of 4 bottles: final report pending, if all the blood culture are the same then get NAZARIO r/o Endocarditis, treat with iv vancomycin -E. coli UTI: continue iv rocephin, ID is following -Acute encephalopathy, poa -Functional quadplegia due to anoxic brain injury -Hyponatremia: monitor sodium levels closely -Status post trach and PEG; Tracheostomy care, nebulizers treatments as needed, oxygen, PEG feeds per protocol -Stage IV sacral decubitus ulcer; wound and supportive care -Chronic anticoagulation on Coumadin; unknown diagnosis, DC Coumadin -Type 2 diabetes mellitus; Accu-Chek sliding scale coverage and ADA diet and insulin -DVT prophylaxis; Lovenox DNR Disposition: continue inpatient care, awaiting blood culture results 09/26/17: repeat blood culture finalized, NAZARIO after the weekend continue to treat with iv vancomycin History Interval history: Patient was seen and examined. Follow-up on current diagnosis AMS. Overnight uneventful. Patient is nonverbal. Imaging, nursing note, chart, labs and old chart reviewed. Discussed with nursing. Hospitalist Physical - Physical exam Narrative exam: GEN: severe disabled, semi vegatative state with eyes open but not focus HEENT: pupils disjoined NECK: trach in place CVS/HEART: RRR, normal S1S2, pulses present bilaterally CHEST/LUNGS: CTA B, Symmetrical chest expansion, good air entry bilaterally GI/Abdomen: soft, NTND, peg in place, good bowel sounds, no guarding or rebound /Bladder: no suprapubic tenderness, no CVA or paraspinal tenderness EXT/Skin: contacted in position, MSK: no movement Neuro: CN 2-12 grossly intact, doesn't follow commands Psych: confused - Constitutional Vitals: Temp Pulse Resp BP Pulse Ox 99.4 F 90 18 153/78 98 09/26/17 07:56 09/26/17 08:35 09/26/17 08:35 09/26/17 07:56 09/26/17 08:30 General appearance: Present: no acute distress, cachectic, disheveled, other ( post trach and PEG) Results - Labs CBC & Chem 7: 09/20/17 15:54 09/24/17 07:58 Labs: Laboratory Last Values WBC 8.7 K/mm3 (4.5-11.0) 09/20/17 15:54 RBC 4.71 M/mm3 (3.65-5.03) 09/20/17 15:54 Hgb 12.6 gm/dl (10.1-14.3) 09/20/17 15:54 Hct 39.0 % (30.3-42.9) 09/20/17 15:54 MCV 83 fl (79-97) 09/20/17 15:54 MCH 27 pg (28-32) L 09/20/17 15:54 MCHC 32 % (30-34) 09/20/17 15:54 RDW 21.4 % (13.2-15.2) H 09/20/17 15:54 Plt Count 228 K/mm3 (140-440) 09/20/17 15:54 Lymph % (Auto) 22.2 % (13.4-35.0) 09/20/17 15:54 [place] % (Auto) 8.7 % (0.0-7.3) H 09/20/17 15:54 Eos % (Auto) 1.4 % (0.0-4.3) 09/20/17 15:54 Baso % (Auto) 0.4 % (0.0-1.8) 09/20/17 15:54 Lymph # 1.9 K/mm3 (1.2-5.4) 09/20/17 15:54 [place] # 0.8 K/mm3 (0.0-0.8) 09/20/17 15:54 Eos # 0.1 K/mm3 (0.0-0.4) 09/20/17 15:54 Baso # 0.0 K/mm3 (0.0-0.1) 09/20/17 15:54 Seg Neutrophils % 67.3 % (40.0-70.0) 09/20/17 15:54 Seg Neutrophils # 5.9 K/mm3 (1.8-7.7) 09/20/17 15:54 PT 15.1 Sec. (12.2-14.9) H 09/26/17 06:35 INR 1.13 (0.87-1.13) 09/26/17 06:35 VBG pH 7.471 (7.320-7.420) H 09/20/17 15:54 Sodium 129 mmol/L (137-145) L D 09/24/17 07:58 Potassium 3.5 mmol/L (3.6-5.0) L 09/24/17 07:58 Chloride 95.5 mmol/L (98-107) L 09/24/17 07:58 Carbon Dioxide 21 mmol/L (22-30) L 09/24/17 07:58 Anion Gap 16 mmol/L 09/24/17 07:58 BUN 11 mg/dL (7-17) 09/24/17 07:58 Creatinine 0.3 mg/dL (0.7-1.2) L 09/24/17 07:58 Estimated GFR > 60 ml/min 09/24/17 07:58 BUN/Creatinine Ratio 37 % 09/24/17 07:58 Glucose 83 mg/dL (65-100) 09/24/17 07:58 POC Glucose 109 (70-105) H 09/26/17 07:14 Lactic Acid 1.30 mmol/L (0.7-2.0) 09/20/17 18:16 Calcium 7.4 mg/dL (8.4-10.2) L D 09/24/17 07:58 Total Bilirubin 0.50 mg/dL (0.1-1.2) 05/06/18 15:54 AST 27 units/L (5-40) 09/20/17 15:54 ALT 31 units/L (7-56) 09/20/17 15:54 Alkaline Phosphatase 76 units/L (35-129) 09/20/17 15:54 Total Protein 7.2 g/dL (6.3-8.2) 09/20/17 15:54 Albumin 3.1 g/dL (3.9-5) L 09/20/17 15:54 Albumin/Globulin Ratio 0.8 % 09/20/17 15:54 Urine Color Yellow (Yellow) 09/20/17 17:18 Urine Turbidity Clear (Clear) 09/20/17 17:18 Urine pH 6.0 (5.0-7.0) 09/20/17 17:18 Ur Specific [place] 1.024 (1.003-1.030) 09/20/17 17:18 Urine Protein 30 mg/dl mg/dL (Negative) 09/20/17 17:18 Urine Glucose (UA) Neg mg/dL (Negative) 09/20/17 17:18 Urine Ketones Neg mg/dL (Negative) 09/20/17 17:18 Urine Blood Sm (Negative) 09/20/17 17:18 Urine Nitrite Pos (Negative) 09/20/17 17:18 Urine Bilirubin Neg (Negative) 09/20/17 17:18 Urine Urobilinogen < 2.0 mg/dL (<2.0) 09/20/17 17:18 Ur Leukocyte Esterase Lg (Negative) 09/20/17 17:18 Urine WBC (Auto) > 182.0 /HPF (0.0-6.0) H 09/20/17 17:18 Urine RBC (Auto) 60.0 /HPF (0.0-6.0) 09/20/17 17:18 Urine Bacteria (Auto) 4+ /HPF (Negative) 09/20/17 17:18 Amorphous Crystals Few 09/20/17 17:18 Urine Mucus 3+ /HPF 09/20/17 17:18
[2017-09-26] MEDS: VANCOMYCIN/NS 1 GM/250 ML 1 GM/250 ML BAG IV SCH (11:40)
[2017-09-26] MEDS: cefTRIAXone 2 GM in NACL 0.9% 20 ML IV SCH (11:40)
[2017-09-26] MEDS: PEPCID PO SCH ×2 (11:40→22:07)
[2017-09-26] MEDS: SODIUM CHLORIDE FLUSH SYRINGE 10 ML IV SCH ×3 (11:40→22:07)
[2017-09-26] MEDS: ROBINUL PO SCH ×2 (15:53→22:07)
[2017-09-26] MEDS: NACL 0.9% 1000 ML 1,000 ML IV SCH (20:44)
[2017-09-27] MEDS: ROBINUL PO SCH ×2 (09:21→23:51)
[2017-09-27] MEDS: PROAMATINE PO SCH ×3 (09:21→23:52)
[2017-09-27] MEDS: VANCOMYCIN/NS 1 GM/250 ML 1 GM/250 ML BAG IV SCH (09:21)
[2017-09-27] MEDS: PEPCID PO SCH ×2 (09:22→23:51)
[2017-09-27] MEDS: cefTRIAXone 2 GM in NACL 0.9% 20 ML IV SCH (09:42)
[2017-09-27] MEDS: SODIUM CHLORIDE FLUSH SYRINGE 10 ML IV SCH ×2 (09:42→23:52)
[2017-09-27 10:11] LABS: INR 1.12 (0.87-1.13)
[2017-09-27] MEDS: DUONEB *Not for PRN Use IH SCH ×3 (10:40→21:48)
[2017-09-27] MEDS: NACL 0.9% 1000 ML 1,000 ML IV SCH (12:39)
--- NOTE | 2017-09-27 14:32 | Progress Note ---
Assessment and Plan Assessment and plan: Ms. Astorga is a 72 y/o woman from [facility] with history of HTN, [place], DM, Schizophrenia, Anoxic brain injury S/P Trach and Peg placement after cardiac arrest approximately 2 yrs ago , chronic indwelling garcia in place; admitted on 09/20/17 due to AMS/lethargy, hypotension, tachycardia, nausea and vomiting wih coffee ground emesis. Patient unable to provide a history she is non verbal at baseline. In the ED, initial temp 99.5, HR 118, BP 99/71, R22,WBC 8.7, Hg 12.6, Plat 228. Creat 0.5. UA 182 wbc, large LE. CXR neg. Garcia output had purulent drainage in the ED. Micro: Blood culture: 09/20 BARBER INSTRUCTOR 3 of 4 bottles, 09/22 ngtd Urine culture: 09/20 MDR E coli -Chronic hypoxic respiratory failure: continue trach care, treat with nasal canula o2 -Sepsis, poa due to UTI: treat with abx, ivf -Coagulase negative Staphylococcus in 3 of 4 bottles: final report pending, if all the blood culture are the same then get NAZARIO r/o Endocarditis, treat with iv vancomycin -E. coli UTI: continue iv rocephin, ID is following -Acute encephalopathy, poa -Functional quadplegia due to anoxic brain injury -Hyponatremia: monitor sodium levels closely -Status post trach and PEG; Tracheostomy care, nebulizers treatments as needed, oxygen, PEG feeds per protocol -Stage IV sacral decubitus ulcer; wound and supportive care -Chronic anticoagulation on Coumadin; unknown diagnosis, DC Coumadin -Type 2 diabetes mellitus; Accu-Chek sliding scale coverage and ADA diet and insulin -DVT prophylaxis; Lovenox DNR Disposition: continue inpatient care, awaiting blood culture results 09/26/17: repeat blood culture finalized, NAZARIO after the weekend continue to treat with iv vancomycin History Interval history: Patient was seen and examined. Follow-up on current diagnosis AMS. Overnight uneventful. Patient is nonverbal. Imaging, nursing note, chart, labs and old chart reviewed. Discussed with nursing. Hospitalist Physical - Physical exam Narrative exam: GEN: severe disabled, semi vegatative state with eyes open but not focus HEENT: pupils disjoined NECK: trach in place CVS/HEART: RRR, normal S1S2, pulses present bilaterally CHEST/LUNGS: CTA B, Symmetrical chest expansion, good air entry bilaterally GI/Abdomen: soft, NTND, peg in place, good bowel sounds, no guarding or rebound /Bladder: no suprapubic tenderness, no CVA or paraspinal tenderness EXT/Skin: contacted in position, MSK: no movement Neuro: CN 2-12 grossly intact, doesn't follow commands Psych: confused - Constitutional Vitals: Temp Pulse Resp BP Pulse Ox 99.1 F 92 H 20 155/83 99 09/27/17 12:28 09/27/17 12:28 09/27/17 12:28 09/27/17 12:28 09/27/17 12:28 General appearance: Present: no acute distress, cachectic, disheveled, other ( post trach and PEG) Results - Labs CBC & Chem 7: 09/20/17 15:54 09/24/17 07:58 Labs: Laboratory Last Values WBC 8.7 K/mm3 (4.5-11.0) 09/20/17 15:54 RBC 4.71 M/mm3 (3.65-5.03) 09/20/17 15:54 Hgb 12.6 gm/dl (10.1-14.3) 09/20/17 15:54 Hct 39.0 % (30.3-42.9) 09/20/17 15:54 MCV 83 fl (79-97) 09/20/17 15:54 MCH 27 pg (28-32) L 09/20/17 15:54 MCHC 32 % (30-34) 09/20/17 15:54 RDW 21.4 % (13.2-15.2) H 09/20/17 15:54 Plt Count 228 K/mm3 (140-440) 09/20/17 15:54 Lymph % (Auto) 22.2 % (13.4-35.0) 09/20/17 15:54 [place] % (Auto) 8.7 % (0.0-7.3) H 09/20/17 15:54 Eos % (Auto) 1.4 % (0.0-4.3) 09/20/17 15:54 Baso % (Auto) 0.4 % (0.0-1.8) 09/20/17 15:54 Lymph # 1.9 K/mm3 (1.2-5.4) 09/20/17 15:54 [place] # 0.8 K/mm3 (0.0-0.8) 09/20/17 15:54 Eos # 0.1 K/mm3 (0.0-0.4) 09/20/17 15:54 Baso # 0.0 K/mm3 (0.0-0.1) 09/20/17 15:54 Seg Neutrophils % 67.3 % (40.0-70.0) 09/20/17 15:54 Seg Neutrophils # 5.9 K/mm3 (1.8-7.7) 09/20/17 15:54 PT 15.0 Sec. (12.2-14.9) H 09/27/17 09:54 INR 1.12 (0.87-1.13) 09/27/17 09:54 VBG pH 7.471 (7.320-7.420) H 09/20/17 15:54 Sodium 129 mmol/L (137-145) L D 09/24/17 07:58 Potassium 3.5 mmol/L (3.6-5.0) L 09/24/17 07:58 Chloride 95.5 mmol/L (98-107) L 09/24/17 07:58 Carbon Dioxide 21 mmol/L (22-30) L 09/24/17 07:58 Anion Gap 16 mmol/L 09/24/17 07:58 BUN 11 mg/dL (7-17) 09/24/17 07:58 Creatinine 0.3 mg/dL (0.7-1.2) L 09/24/17 07:58 Estimated GFR > 60 ml/min 09/24/17 07:58 BUN/Creatinine Ratio 37 % 09/24/17 07:58 Glucose 83 mg/dL (65-100) 09/24/17 07:58 POC Glucose 99 (70-105) 09/27/17 06:11 Lactic Acid 1.30 mmol/L (0.7-2.0) 09/20/17 18:16 Calcium 7.4 mg/dL (8.4-10.2) L D 09/24/17 07:58 Total Bilirubin 0.50 mg/dL (0.1-1.2) 05/06/18 15:54 AST 27 units/L (5-40) 09/20/17 15:54 ALT 31 units/L (7-56) 09/20/17 15:54 Alkaline Phosphatase 76 units/L (35-129) 09/20/17 15:54 Total Protein 7.2 g/dL (6.3-8.2) 09/20/17 15:54 Albumin 3.1 g/dL (3.9-5) L 09/20/17 15:54 Albumin/Globulin Ratio 0.8 % 09/20/17 15:54 Urine Color Yellow (Yellow) 09/20/17 17:18 Urine Turbidity Clear (Clear) 09/20/17 17:18 Urine pH 6.0 (5.0-7.0) 09/20/17 17:18 Ur Specific Disputanta 1.024 (1.003-1.030) 09/20/17 17:18 Urine Protein 30 mg/dl mg/dL (Negative) 09/20/17 17:18 Urine Glucose (UA) Neg mg/dL (Negative) 09/20/17 17:18 Urine Ketones Neg mg/dL (Negative) 09/20/17 17:18 Urine Blood Sm (Negative) 09/20/17 17:18 Urine Nitrite Pos (Negative) 09/20/17 17:18 Urine Bilirubin Neg (Negative) 09/20/17 17:18 Urine Urobilinogen < 2.0 mg/dL (<2.0) 09/20/17 17:18 Ur Leukocyte Esterase Lg (Negative) 09/20/17 17:18 Urine WBC (Auto) > 182.0 /HPF (0.0-6.0) H 09/20/17 17:18 Urine RBC (Auto) 60.0 /HPF (0.0-6.0) 09/20/17 17:18 Urine Bacteria (Auto) 4+ /HPF (Negative) 09/20/17 17:18 Amorphous Crystals Few 09/20/17 17:18 Urine Mucus 3+ /HPF 09/20/17 17:18 Vancomycin Trough 16.6 ug/mL (5.0-20.0) 09/27/17 09:44
[2017-09-27] MEDS: LANTUS SUB-Q SCH (23:53)
[2017-09-28] MEDS: NACL 0.9% 1000 ML 1,000 ML IV SCH (06:49)
[2017-09-28] MEDS: PROAMATINE PO SCH ×3 (08:01→21:03)
[2017-09-28 08:39] LABS: INR 0.99 (0.87-1.13)
[2017-09-28] MEDS: ROBINUL PO SCH ×2 (09:04→21:03)
[2017-09-28] MEDS: PEPCID PO SCH ×2 (09:04→21:03)
[2017-09-28] MEDS: cefTRIAXone 2 GM in NACL 0.9% 20 ML IV SCH (09:04)
[2017-09-28] MEDS: SODIUM CHLORIDE FLUSH SYRINGE 10 ML IV SCH ×2 (09:05→21:04)
[2017-09-28] MEDS: VANCOMYCIN/NS 1 GM/250 ML 1 GM/250 ML BAG IV SCH (09:05)
[2017-09-28] MEDS: DUONEB *Not for PRN Use IH SCH ×3 (09:11→20:16)
--- NOTE | 2017-09-28 12:11 | Progress Note ---
Assessment and Plan Assessment and plan: Ms. Astorga is a 72 y/o woman from [facility] with history of HTN, [place], DM, Schizophrenia, Anoxic brain injury S/P Trach and Peg placement after cardiac arrest approximately 2 yrs ago , chronic indwelling garcia in place; admitted on 09/20/17 due to AMS/lethargy, hypotension, tachycardia, nausea and vomiting wih coffee ground emesis. Patient unable to provide a history she is non verbal at baseline. In the ED, initial temp 99.5, HR 118, BP 99/71, R22,WBC 8.7, Hg 12.6, Plat 228. Creat 0.5. UA 182 wbc, large LE. CXR neg. Garcia output had purulent drainage in the ED. Micro: Blood culture: 09/20 [employer] 3 of 4 bottles, 09/22 ngtd Urine culture: 09/20 MDR E coli -Chronic hypoxic respiratory failure: continue trach care, treat with nasal canula o2 -Sepsis, poa due to UTI: treat with abx, ivf -Coagulase negative Staphylococcus in 3 of 4 bottles: final report pending, if all the blood culture are the same then get NAZARIO r/o Endocarditis, treat with iv vancomycin -E. coli UTI: continue iv rocephin, ID is following -Acute encephalopathy, poa -Functional quadplegia due to anoxic brain injury -Hyponatremia: monitor sodium levels closely -Status post trach and PEG; Tracheostomy care, nebulizers treatments as needed, oxygen, PEG feeds per protocol -Stage IV sacral decubitus ulcer; wound and supportive care -Chronic anticoagulation on Coumadin; unknown diagnosis, DC Coumadin -Type 2 diabetes mellitus; Accu-Chek sliding scale coverage and ADA diet and insulin -DVT prophylaxis; Lovenox DNR Disposition: continue inpatient care, awaiting blood culture results 09/26/17: repeat blood culture finalized, NAZARIO after the weekend continue to treat with iv vancomycin await ID final recommendation History Interval history: Patient was seen and examined. Follow-up on current diagnosis AMS. Overnight uneventful. Patient is nonverbal. Imaging, nursing note, chart, labs and old chart reviewed. Discussed with nursing. Hospitalist Physical - Physical exam Narrative exam: GEN: severe disabled, semi vegatative state with eyes open but not focus HEENT: pupils disjoined NECK: trach in place CVS/HEART: RRR, normal S1S2, pulses present bilaterally CHEST/LUNGS: CTA B, Symmetrical chest expansion, good air entry bilaterally GI/Abdomen: soft, NTND, peg in place, good bowel sounds, no guarding or rebound /Bladder: no suprapubic tenderness, no CVA or paraspinal tenderness EXT/Skin: contacted in position, MSK: no movement Neuro: CN 2-12 grossly intact, doesn't follow commands Psych: confused - Constitutional Vitals: Temp Pulse Resp BP Pulse Ox 98.0 F 96 H 16 122/69 100 09/28/17 07:36 09/28/17 10:00 09/28/17 09:25 09/28/17 07:36 09/28/17 09:23 General appearance: Present: no acute distress, cachectic, disheveled, other ( post trach and PEG) Results - Labs CBC & Chem 7: 09/20/17 15:54 09/24/17 07:58 Labs: Laboratory Last Values WBC 8.7 K/mm3 (4.5-11.0) 09/20/17 15:54 RBC 4.71 M/mm3 (3.65-5.03) 09/20/17 15:54 Hgb 12.6 gm/dl (10.1-14.3) 09/20/17 15:54 Hct 39.0 % (30.3-42.9) 09/20/17 15:54 MCV 83 fl (79-97) 09/20/17 15:54 MCH 27 pg (28-32) L 09/20/17 15:54 MCHC 32 % (30-34) 09/20/17 15:54 RDW 21.4 % (13.2-15.2) H 09/20/17 15:54 Plt Count 228 K/mm3 (140-440) 09/20/17 15:54 Lymph % (Auto) 22.2 % (13.4-35.0) 09/20/17 15:54 [place] % (Auto) 8.7 % (0.0-7.3) H 09/20/17 15:54 Eos % (Auto) 1.4 % (0.0-4.3) 09/20/17 15:54 Baso % (Auto) 0.4 % (0.0-1.8) 09/20/17 15:54 Lymph # 1.9 K/mm3 (1.2-5.4) 09/20/17 15:54 [place] # 0.8 K/mm3 (0.0-0.8) 09/20/17 15:54 Eos # 0.1 K/mm3 (0.0-0.4) 09/20/17 15:54 Baso # 0.0 K/mm3 (0.0-0.1) 09/20/17 15:54 Seg Neutrophils % 67.3 % (40.0-70.0) 09/20/17 15:54 Seg Neutrophils # 5.9 K/mm3 (1.8-7.7) 09/20/17 15:54 PT 13.6 Sec. (12.2-14.9) 09/28/17 07:56 INR 0.99 (0.87-1.13) 09/28/17 07:56 VBG pH 7.471 (7.320-7.420) H 09/20/17 15:54 Sodium 129 mmol/L (137-145) L D 09/24/17 07:58 Potassium 3.5 mmol/L (3.6-5.0) L 09/24/17 07:58 Chloride 95.5 mmol/L (98-107) L 09/24/17 07:58 Carbon Dioxide 21 mmol/L (22-30) L 09/24/17 07:58 Anion Gap 16 mmol/L 09/24/17 07:58 BUN 11 mg/dL (7-17) 09/24/17 07:58 Creatinine 0.3 mg/dL (0.7-1.2) L 09/24/17 07:58 Estimated GFR > 60 ml/min 09/24/17 07:58 BUN/Creatinine Ratio 37 % 09/24/17 07:58 Glucose 83 mg/dL (65-100) 09/24/17 07:58 POC Glucose 116 (70-105) H 09/28/17 11:35 Lactic Acid 1.30 mmol/L (0.7-2.0) 09/20/17 18:16 Calcium 7.4 mg/dL (8.4-10.2) L D 09/24/17 07:58 Total Bilirubin 0.50 mg/dL (0.1-1.2) 09/20/17 15:54 AST 27 units/L (5-40) 09/20/17 15:54 ALT 31 units/L (7-56) 09/20/17 15:54 Alkaline Phosphatase 76 units/L (35-129) 09/20/17 15:54 Total Protein 7.2 g/dL (6.3-8.2) 09/20/17 15:54 Albumin 3.1 g/dL (3.9-5) L 09/20/17 15:54 Albumin/Globulin Ratio 0.8 % 09/20/17 15:54 Urine Color Yellow (Yellow) 09/20/17 17:18 Urine Turbidity Clear (Clear) 09/20/17 17:18 Urine pH 6.0 (5.0-7.0) 09/20/17 17:18 Ur Specific [place] 1.024 (1.003-1.030) 09/20/17 17:18 Urine Protein 30 mg/dl mg/dL (Negative) 09/20/17 17:18 Urine Glucose (UA) Neg mg/dL (Negative) 09/20/17 17:18 Urine Ketones Neg mg/dL (Negative) 09/20/17 17:18 Urine Blood Sm (Negative) 09/20/17 17:18 Urine Nitrite Pos (Negative) 09/20/17 17:18 Urine Bilirubin Neg (Negative) 09/20/17 17:18 Urine Urobilinogen < 2.0 mg/dL (<2.0) 09/20/17 17:18 Ur Leukocyte Esterase Lg (Negative) 09/20/17 17:18 Urine WBC (Auto) > 182.0 /HPF (0.0-6.0) H 09/20/17 17:18 Urine RBC (Auto) 60.0 /HPF (0.0-6.0) 09/20/17 17:18 Urine Bacteria (Auto) 4+ /HPF (Negative) 09/20/17 17:18 Amorphous Crystals Few 09/20/17 17:18 Urine Mucus 3+ /HPF 09/20/17 17:18 Vancomycin Trough 16.6 ug/mL (5.0-20.0) 09/27/17 09:44
--- NOTE | 2017-09-28 13:39 | Progress Note ---
Assessment and Plan Assessment: 1) Sepsis: better; etiology - multifactorial CA-UTI +/- bacteremia 2) Staph hominis bacteremia: 2 of 4 bottles. Diphtheroid and Micrococcus likely contaminant. Source unclear. Staph hominis sens to ceftriaxone. -Blood cx 5/6 positive 3 of 4 bottles -Blood cx 09/22 neg 3) CA-UTI: with MDR E coli 4) History of brain anoxic injury 5) Chronic indwelling garcia 6) Presumed GI bleed: fecal occult negative Plan: -continue ceftriaxone -stop vancomycin for now -continue ceftriaxone 2 g IV qday for 14 days until 10/04/17 -contact isolation due to MDR E coli -garcia should be exchanged every 3-4 weeks I am signing off Very poor prognosis, consider palliative care Rosalva Lynn MD Subjective Date of service: 09/28/17 Principal diagnosis: UTI Interval history: Remains non verbal in a position contracted no fever tmax 99.8 Micro: Blood culture: 56 Staph hominis, micrococcus, diphtheroids 3 of 4 bottles (Staph hominis in 2 of 4 bottles) 09/22 ngtd Urine culture: 5/6 MDR E coli Abx: Ceftriaxone 09/20/17 Objective - Exam Narrative Exam: Lethargic in NAD in position NC/AT RYDER, unable to eval OP Neck +Trach with thick yellowish secretion CV RRR Lungs distant Abd limited exam + Gtube Ext contracted - very difficult exam Neuro non verbal lethargic - Constitutional Vitals: Vital Signs Temp Pulse Resp BP Pulse Ox 98.0 F 96 H 16 122/69 100 09/28/17 07:36 09/28/17 10:00 09/28/17 09:25 09/28/17 07:36 09/28/17 09:23 Temperature -Last 24 Hours Temperature 98.0 F Temperature 99.8 F Temperature 98.5 F Temperature 99.8 F - Labs CBC & Chem 7: 09/20/17 15:54 09/24/17 07:58 Labs: Abnormal lab results 09/27/17 09/27/17 09/28/17 Range/Units 12:17 17:10 00:21 POC Glucose 110 H 113 H 118 H (70-105) 09/28/17 Range/Units 11:35 POC Glucose 116 H (70-105)
[2017-09-28] MEDS ORDERED: SODIUM BICARBONATE FEEDTUBE PRN (13:59)
[2017-09-28] MEDS ORDERED: PANCREAZE DR 10,500 UNIT FEEDTUBE PRN (13:59)
[2017-09-28] MEDS ORDERED: SIMPLE SYRUP FEEDTUBE PRN ×2 (13:59)
[2017-09-29] MEDS: LANTUS SUB-Q SCH ×2 (01:06→23:33)
[2017-09-29] MEDS: NACL 0.9% 1000 ML 1,000 ML IV SCH ×2 (05:37→18:36)
[2017-09-29] MEDS: PROAMATINE PO SCH ×3 (08:58→21:33)
[2017-09-29] MEDS: DUONEB *Not for PRN Use IH SCH ×3 (09:45→20:58)
[2017-09-29] MEDS: PEPCID PO SCH ×2 (09:52→21:33)
[2017-09-29] MEDS: SODIUM CHLORIDE FLUSH SYRINGE 10 ML IV SCH ×2 (09:52→21:34)
[2017-09-29] MEDS: cefTRIAXone 2 GM in NACL 0.9% 20 ML IV SCH (09:52)
[2017-09-29] MEDS: ROBINUL PO SCH ×2 (09:52→21:33)
[2017-09-29 12:46] LABS: BUN/Creatinine Ratio 23; Blood Urea Nitrogen 9 mg/dL (7-17); Calcium 9.3 mg/dL (8.4-10.2); Hemolysis Index 13
[2017-09-29] MEDS ORDERED: XYLOCAINE 2% INFILTRATI ONE (15:11)
[2017-09-29] MEDS ORDERED: HEPARIN 10,000 UNITS/10 ML ONE (15:11)
[2017-09-29] MEDS ORDERED: HEPARIN/NS 5000 UNIT/500ML(CATH LAB) 500 ML IR ONE (15:11)
[2017-09-29] MEDS ORDERED: ANCEF/STERILE WATER 2 GM/20 ML 0 GM/0 ML SYRINGE IV ONE (15:11)
--- NOTE | 2017-09-29 16:14 | Progress Note ---
Assessment and Plan Assessment and plan: -Chronic hypoxic respiratory failure: continue trach care, treat with nasal canula o2 -Sepsis, poa due to CA-UTI +/-bacteremia: Sepsis is improving, treat with abx, ivf Staph hominis bacteremia: PICC line placement scheduled for today, patient will continue ceftriaxone for 14 days -Coagulase negative Staphylococcus in 3 of 4 bottles: final report pending, if all the blood culture are the same then get NAZARIO r/o Endocarditis, treat with iv vancomycin -E. coli UTI: continue iv rocephin, ID is following -Acute encephalopathy, poa -Functional quadplegia due to anoxic brain injury -Hyponatremia: monitor sodium levels closely -Status post trach and PEG; Tracheostomy care, nebulizers treatments as needed, oxygen, PEG feeds per protocol -Stage IV sacral decubitus ulcer; wound and supportive care -Chronic anticoagulation on Coumadin; unknown diagnosis, DC Coumadin -Type 2 diabetes mellitus; Accu-Chek sliding scale coverage and ADA diet and insulin -DVT prophylaxis; Lovenox History Interval history: Patient was seen and examined. No new events overnight. Patient is nonverbal. Imaging, nursing note, chart, labs and old chart reviewed. Hospitalist Physical - Physical exam Narrative exam: General appearance: Present: no acute distress, well-nourished - EENT Eyes: Present: Pupils disjoined ENT: hearing intact, clear oral mucosa - Neck Present: supple,trach in place - Respiratory Respiratory effort: normal Respiratory: bilateral: CTA - Cardiovascular Rhythm: regular Heart Sounds: Present: S1 & S2 - Extremities Extremities: Contracted, patient in position - Abdominal General gastrointestinal: soft, non-tender, non-distended, pain in place - Integumentary Integumentary: Present: clear, warm, dry - Psychiatric Psychiatric: Confused - Neurologic Neurologic: CNII-XII intact, doesn't follow commands - Constitutional Vitals: Temp Pulse Resp BP Pulse Ox 99.5 F 95 H 18 154/98 99 09/29/17 08:02 09/29/17 13:50 09/29/17 10:00 09/29/17 13:50 09/29/17 13:50 General appearance: Present: no acute distress, cachectic, other (severely disabled, nonresponsive but awake, eyes open but not focused) Results - Labs CBC & Chem 7: 09/20/17 15:54 09/29/17 11:03 Labs: Laboratory Last Values WBC 8.7 K/mm3 (4.5-11.0) 09/20/17 15:54 RBC 4.71 M/mm3 (3.65-5.03) 09/20/17 15:54 Hgb 12.6 gm/dl (10.1-14.3) 09/20/17 15:54 Hct 39.0 % (30.3-42.9) 09/20/17 15:54 MCV 83 fl (79-97) 09/20/17 15:54 MCH 27 pg (28-32) L 09/20/17 15:54 MCHC 32 % (30-34) 09/20/17 15:54 RDW 21.4 % (13.2-15.2) H 09/20/17 15:54 Plt Count 228 K/mm3 (140-440) 09/20/17 15:54 Lymph % (Auto) 22.2 % (13.4-35.0) 09/20/17 15:54 [place] % (Auto) 8.7 % (0.0-7.3) H 09/20/17 15:54 Eos % (Auto) 1.4 % (0.0-4.3) 09/20/17 15:54 Baso % (Auto) 0.4 % (0.0-1.8) 09/20/17 15:54 Lymph # 1.9 K/mm3 (1.2-5.4) 09/20/17 15:54 [place] # 0.8 K/mm3 (0.0-0.8) 09/20/17 15:54 Eos # 0.1 K/mm3 (0.0-0.4) 09/20/17 15:54 Baso # 0.0 K/mm3 (0.0-0.1) 09/20/17 15:54 Seg Neutrophils % 67.3 % (40.0-70.0) 09/20/17 15:54 Seg Neutrophils # 5.9 K/mm3 (1.8-7.7) 09/20/17 15:54 PT 13.6 Sec. (12.2-14.9) 09/28/17 07:56 INR 0.99 (0.87-1.13) 09/28/17 07:56 VBG pH 7.471 (7.320-7.420) H 09/20/17 15:54 Sodium 138 mmol/L (137-145) 09/29/17 11:03 Potassium 3.8 mmol/L (3.6-5.0) 09/29/17 11:03 Chloride 101.5 mmol/L (98-107) 09/29/17 11:03 Carbon Dioxide 24 mmol/L (22-30) 09/29/17 11:03 Anion Gap 16 mmol/L 09/29/17 11:03 BUN 9 mg/dL (7-17) 09/29/17 11:03 Creatinine 0.4 mg/dL (0.7-1.2) L 09/29/17 11:03 Estimated GFR > 60 ml/min 09/29/17 11:03 BUN/Creatinine Ratio 23 % 09/29/17 11:03 Glucose 90 mg/dL (65-100) 09/29/17 11:03 POC Glucose 83 (70-105) 09/29/17 11:47 Lactic Acid 1.30 mmol/L (0.7-2.0) 09/20/17 18:16 Calcium 9.3 mg/dL (8.4-10.2) 09/29/17 11:03 Total Bilirubin 0.50 mg/dL (0.1-1.2) 09/20/17 15:54 AST 27 units/L (5-40) 09/20/17 15:54 ALT 31 units/L (7-56) 09/20/17 15:54 Alkaline Phosphatase 76 units/L (35-129) 09/20/17 15:54 Total Protein 7.2 g/dL (6.3-8.2) 09/20/17 15:54 Albumin 3.1 g/dL (3.9-5) L 09/20/17 15:54 Albumin/Globulin Ratio 0.8 % 09/20/17 15:54 Urine Color Yellow (Yellow) 09/20/17 17:18 Urine Turbidity Clear (Clear) 09/20/17 17:18 Urine pH 6.0 (5.0-7.0) 09/20/17 17:18 Ur Specific [place] 1.024 (1.003-1.030) 09/20/17 17:18 Urine Protein 30 mg/dl mg/dL (Negative) 09/20/17 17:18 Urine Glucose (UA) Neg mg/dL (Negative) 09/20/17 17:18 Urine Ketones Neg mg/dL (Negative) 09/20/17 17:18 Urine Blood Sm (Negative) 09/20/17 17:18 Urine Nitrite Pos (Negative) 09/20/17 17:18 Urine Bilirubin Neg (Negative) 09/20/17 17:18 Urine Urobilinogen < 2.0 mg/dL (<2.0) 09/20/17 17:18 Ur Leukocyte Esterase Lg (Negative) 09/20/17 17:18 Urine WBC (Auto) > 182.0 /HPF (0.0-6.0) H 09/20/17 17:18 Urine RBC (Auto) 60.0 /HPF (0.0-6.0) 09/20/17 17:18 Urine Bacteria (Auto) 4+ /HPF (Negative) 09/20/17 17:18 Amorphous Crystals Few 09/20/17 17:18 Urine Mucus 3+ /HPF 09/20/17 17:18 Vancomycin Trough 16.6 ug/mL (5.0-20.0) 09/27/17 09:44
--- NOTE | 2017-09-29 16:44 | Operative Report ---
Operative Report Operative Report: EXAM: ULTRASOUND AND FLUOROSCOPIC GUIDED PLACEMENT OF TUNNELED PICC CLINICAL INDICATION: BACTEREMIA REQUIRING LONG-TERM IV ANTIBIOTICS DATE: 09/29/2017 PROCEDURE: Following an explanation of the risks, benefits and alternatives; written informed consent was obtained. The patient was brought to the injury graphic suite and placed in supine position on the examination. Initial ultrasound evaluation of the patient demonstrated a patent left internal jugular vein. The patient's left neck and chest wall were prepped and draped in usual sterile fashion. 1% lidocaine was used for anesthesia. Under ultrasound guidance, the left internal jugular vein was cannulated with a 7 cm 21-gauge needle. A 0.018 guidewire was advanced centrally under fluoroscopy. The guidewire was advanced to the IVC and images saved to document appropriate intravenous positioning. The needle was removed. An appropriate catheter exit site was chosen anterior lateral on the chest wall. 1% lidocaine was used for anesthesia at the catheter exit site and along the tunnel tract. A Bard dual-lumen power PICC was then tunneled antegrade from the catheter exit site to the venotomy site. A 5.5 Welsh peel-away sheath was placed over the guidewire under fluoroscopy. The guidewire and trocar were removed and the catheter cut to length and inserted through the peel-away sheath. The tip was positioned in the proximal right atrium. Peel-away sheath was removed. Both ports flushed and aspirated easily and were then locked with sterile saline. The catheter exit site was approximated using 3-0 Vicryl suture. Dermabond was then applied to the catheter exit site venotomy site. Sterile dressings were then applied. The patient tolerated the procedure well. There were no immediate post procedure complications. No sedation was utilized secondary to patient's altered mental status. Continuous cardiopulmonary monitoring was utilized. IMPRESSION: 1) Ultrasound and fluoroscopic guided placement of tunneled PICC via the left internal jugular vein.
[2017-09-30] MEDS: NACL 0.9% 1000 ML 1,000 ML IV SCH (05:10)
[2017-09-30 08:42] VITALS: BP 157/81
[2017-09-30] MEDS: DUONEB *Not for PRN Use IH SCH ×2 (08:48→13:10)
[2017-09-30] MEDS: PEPCID PO SCH (09:29)
[2017-09-30] MEDS: cefTRIAXone 2 GM in NACL 0.9% 20 ML IV SCH (09:29)
[2017-09-30] MEDS: ROBINUL PO SCH (09:29)
[2017-09-30] MEDS: SODIUM CHLORIDE FLUSH SYRINGE 10 ML IV SCH (09:30)
[2017-09-30] MEDS: PROAMATINE PO SCH (09:32)
--- NOTE | 2017-09-30 10:13 | Discharge Summary ---
Providers - Providers Date of Admission: 09/20/17 18:13 Date of discharge: 09/30/17 Attending physician: KARSON WHITE MD 09/21/17 11:35 Consult to Dietitian/Nutrition [CONS] Stat Physician Instructions: Reason For Exam: Reason for Consult: PEG TUBE FEEDING 09/23/17 08:53 Consult to Physician [CONS] Routine Comment: BERENICE Consulting Provider: BARRON RAMIREZ Physician Instructions: CONSULT WAS CALLED TO DR. CARR Reason For Exam: coag neg staph bacteremia/Gm neg UTI 09/24/17 17:53 Consult to Wound/ET Nurse [CONS] Stat Reason For Exam: wound eval 09/28/17 08:19 Consult to PICC Line RN [CONS] Stat Reason For Exam: Antibiotics required for 2 weeks. Type Line:: PICC 09/28/17 13:40 Consult to Interventional Radiology [CONS] Stat Consulting Provider: PIA CARSON Reason For Exam: neck PICC for IV abx Place consult to:: PIA CARSON Notified:: diagnostic cardiac sonographer IR doctor Was contact made?: Yes If yes, spoke with:: NICOLÁS Time called:: 14:04 Comment:: BERENICE 09/28/17 13:41 Consult to Case Management [CONS] Stat Services Needed at Discharge: Other Notified:: diagnostic cardiac sonographer Additional Physician Instructions: [facility] Diagnosis: Staph hominis septicemia and MDR E coli UTI Abx: ceftriaxone 2 g IV qday for 14 days until 10/04/17. Remove PICC after last dose Labs: CBC, BMP once a week every Thursday AM. Send labs results to fax #[phone] MD Shane 09/28/17 Primary care physician: DRILL PRESSER Hospitalization Condition: Stable Pertinent studies: Chest X-ray showed No radiographic evidence of acute cardiopulmonary abnormality. Hospital course: 72 YO Female [employer] Resident with HTN, [place], DM, Schizophrenia, [place] S/P Trach and Peg placement presents to ED for evaluation. Pt is nonverbal, and unable to provide history. Pt history provided by ED staff, EMS, and SNF staff. As per SNF staff, the patient was found to be lethargic, and experienced an episode of vomiting, as well as a low blood pressure with systolic BP in the 80's and a heart rate in the 120's. EMS notified, and patient transported to [facility] for further care and evaluation. Pt seen and evaluated in ED and found to have SIRS, UTI, And Encephalopathy. Patient was found to have UTI and was initiated on IV abx. Urine and blood cultures were obtained. Urine culture positive for MDR E coli. Blood culture positive for Staph hominis bacteremia. Patient initiated on appropriate IV abx. PICC line place for continuation of IV abx. Patient will continue abx until 10/04. Patient is clinically and hemodynamically stable to discharge back to SNF. She will follow up with PCP within 1 week of d/c. Discharge Diagnoses Sepsis UTI Anoxic encephalopathy Disposition: DC-01 TO HOME OR SELFCARE Time spent for discharge: 32 minutes Core Measure Documentation - Palliative Care Palliative Care/ Comfort Measures: Not Applicable - Core Measures Any of the following diagnoses?: none Exam - Physical Exam Narrative exam: General appearance: Present: no acute distress, well-nourished - EENT Eyes: Present: Pupils disjoined ENT: hearing intact, clear oral mucosa - Neck Present: supple,trach in place - Respiratory Respiratory effort: normal Respiratory: bilateral: CTA - Cardiovascular Rhythm: regular Heart Sounds: Present: S1 & S2 - Extremities Extremities: Contracted, patient in position - Abdominal General gastrointestinal: soft, non-tender, non-distended, pain in place - Integumentary Integumentary: Present: clear, warm, dry - Psychiatric Psychiatric: Confused - Neurologic Neurologic: CNII-XII intact, doesn't follow commands - Constitutional Vitals: Temp Pulse Resp BP Pulse Ox 99.4 F 88 18 157/81 98 09/30/17 07:40 09/30/17 08:58 09/30/17 08:58 09/30/17 07:40 09/30/17 08:49 Plan Follow up with: PRIMARY MD TANYA [Primary Care Provider] - 3-5 Days Forms: Accompanied Note, Warfarin Discharge Instruction Prescriptions: cefTRIAXone [Rocephin] 2 gm IV Q24HR 4 Days vial
== END 2017-09-30 13:45 | DRG 870 ==
LOC: ED 15:27 → 2B-ACE 18:13
PROVIDERS: ADMIT Internal Medicine; ATTEND Internal Medicine
PROC: 5A1955Z Respiratory Ventilation, Greater than 96 Consecutive Hours (ICD-10-PCS; 2017-09-20)
PROC: 0JH63XZ Insertion of Tunneled Vascular Access Device into Chest Subcutaneous Tissue and Fascia, Percutaneous Approach (ICD-10-PCS; principal; 2017-09-29)
PROC: 02H633Z Insertion of Infusion Device into Right Atrium, Percutaneous Approach (ICD-10-PCS; 2017-09-29)
PROC: B5141ZA Fluoroscopy of Left Jugular Veins using Low Osmolar Contrast, Guidance (ICD-10-PCS; 2017-09-29)
DX: A41.51 Sepsis due to Escherichia coli [E. coli] (principal); L89.154 Pressure ulcer of sacral region, stage 4; R53.2 Functional quadriplegia; R65.21 Severe sepsis with septic shock; G93.40 Encephalopathy, unspecified; N39.0 Urinary tract infection, site not specified; G93.1 Anoxic brain damage, not elsewhere classified; K92.2 Gastrointestinal hemorrhage, unspecified; E87.1 Hypo-osmolality and hyponatremia; J96.11 Chronic respiratory failure with hypoxia; Z66 Do not resuscitate; B96.20 Unspecified Escherichia coli [E. coli] as the cause of diseases classified elsewhere; F20.9 Schizophrenia, unspecified; I25.2 Old myocardial infarction; Z82.49 Family history of ischemic heart disease and other diseases of the circulatory system; Z83.3 Family history of diabetes mellitus; Z90.710 Acquired absence of both cervix and uterus; Z90.10 Acquired absence of unspecified breast and nipple; Z93.0 Tracheostomy status; Z79.01 Long term (current) use of anticoagulants; Z79.4 Long term (current) use of insulin; Z93.1 Gastrostomy status; Z79.899 Other long term (current) drug therapy; Z86.74 Personal history of sudden cardiac arrest
CPT/HCPCS: 36415; 36558; 71045; 77001; 80048; 80053; 80202; 81001; 82140; 82271; 82805; 82962; 85025; 85610; 87040; 87076; 87086; 87186; 93005; 93010; 94640; 94760; 96361; 96374; C1751; C9113; J0690; J0696; J1644; J1815; J2543; J3370; J7030; J7050

== ENCOUNTER 2018-11-02 22:57 | Inpatient (IN) | payer MEDICARE ==
[2018-11-02] MEDS ORDERED: NACL 0.9% 1000 ML IV ONE (23:44)
[2018-11-02] MEDS ORDERED: ZOSYN/NS 3.375GM/50ML 3.375 GM/50 ML BAG IV ONE (23:45)
[2018-11-02] MEDS ORDERED: ZOFRAN IV ONE (23:45)
[2018-11-02] MEDS ORDERED: PROTONIX 80 MG in NACL 0.9% 100 ML IV SCH (23:45)
--- NOTE | 2018-11-02 23:50 | Emergency Department Report ---
ED General Adult HPI - General Chief complaint: GI Bleed Stated complaint: EMESIS Time Seen by Provider: 11/02/18 23:40 Source: EMS Mode of arrival: Stretcher Limitations: Physical Limitation - History of Present Illness Initial comments: Patient is 73 years old female, retirement patient, history of anoxic brain injury with chronic respiratory failure, tracheostomy in place, diabetes history of cardiac arrest. Patient brought to the emergency room from a retirement for evaluation of vomiting, tachypnea and a low-grade temperature for the last day. Patient is unable to communicate. Sepsis protocol initiated immediately. Severity scale (0 -10): 0 - Related Data Home Medications Medication Instructions Recorded Confirmed Last Taken Acetaminophen [Acetaminophen ER] 500 mg PO PRN PRN 07/29/17 09/21/17 Unknown Glycopyrrolate [Robinul] 1 mg PO BID 07/29/17 09/21/17 Unknown Ipratropium/Albuterol Sulfate 1 ampul IH Q4HR 07/29/17 09/21/17 Unknown [DUONEB *Not for PRN Use*] Warfarin [Coumadin] 7.5 mg PO QDAY 07/29/17 09/21/17 Unknown Warfarin [Coumadin] 10 mg PO 1XW 07/29/17 09/21/17 Unknown Previous Rx's Medication Instructions Recorded Last Taken Type Famotidine [Pepcid] 20 mg PO BID #60 tablet 08/07/17 Unknown Rx Insulin Glargine [Lantus VIAL] 10 units SUB-Q QHS #7 units 08/07/17 Unknown Rx Midodrine [Proamatine] 10 mg PO TID #30 tablet 08/07/17 Unknown Rx cefTRIAXone [Rocephin] 2 gm IV Q24HR 4 Days vial 09/30/17 Unknown Rx Allergies Allergy/AdvReac Type Severity Reaction Status Date / Time No Known Allergies Allergy Unverified 09/30/13 14:18 ED Review of Systems ROS: Stated complaint: EMESIS Other details as noted in HPI Comment: Unobtainable due to pts medical conditions ED Past Medical Hx - Past Medical History Hx Hypertension: Yes Hx Heart Attack/AMI: Yes (Cardiac arrest) Hx Diabetes: Yes Hx Liver Disease: No Hx Renal Disease: No Hx Seizures: No Hx Psychiatric Treatment: Yes (schizo) Hx Asthma: No Hx HIV: No Additional medical history: dysphagia, g-tube, trach, anoxic brain injury - Surgical History Hx Breast Surgery: Yes (Mastectomy 2002) Additional Surgical History: Hysterectomy 1974 - Social History Smoking Status: Never Smoker Substance Use Type: None - Medications Home Medications: Home Medications Medication Instructions Recorded Confirmed Last Taken Type Acetaminophen [Acetaminophen ER] 500 mg PO PRN PRN 07/29/17 09/21/17 Unknown History Glycopyrrolate [Robinul] 1 mg PO BID 07/29/17 09/21/17 Unknown History Ipratropium/Albuterol Sulfate 1 ampul IH Q4HR 07/29/17 09/21/17 Unknown History [DUONEB *Not for PRN Use*] Warfarin [Coumadin] 7.5 mg PO QDAY 07/29/17 09/21/17 Unknown History Warfarin [Coumadin] 10 mg PO 1XW 07/29/17 09/21/17 Unknown History Famotidine [Pepcid] 20 mg PO BID #60 tablet 08/07/17 09/21/17 Unknown Rx Insulin Glargine [Lantus VIAL] 10 units SUB-Q QHS #7 units 08/07/17 09/21/17 Unknown Rx Midodrine [Proamatine] 10 mg PO TID #30 tablet 08/07/17 09/21/17 Unknown Rx cefTRIAXone [Rocephin] 2 gm IV Q24HR 4 Days vial 09/30/17 Unknown Rx ED Physical Exam - General Limitations: Physical Limitation General appearance: alert, in distress - Head Head exam: Present: atraumatic, normocephalic, normal inspection - Eye Eye exam: Present: normal appearance - ENT ENT exam: Present: mucous membranes dry - Neck Neck exam: Present: normal inspection, other. Absent: tenderness, meningismus - Respiratory Respiratory exam: Present: respiratory distress, rales. Absent: rhonchi, s tridor, accessory muscle use, decreased breath sounds, prolonged expiratory - Cardiovascular Cardiovascular Exam: Present: tachycardia - GI/Abdominal GI/Abdominal exam: Present: soft, normal bowel sounds, other (G-tube in place). Absent: distended, tenderness, guarding, rebound, rigid, organomegaly, mass, bruit, pulsatile mass - Rectal Rectal exam: Present: normal inspection, normal rectal tone, heme (+) stool. Absent: black stool, bloody stool, fecal impaction, hemorrhoids, mass, tenderness - Back Exam Back exam: Absent: CVA tenderness (R), CVA tenderness (L) - Neurological Exam Neurological exam: Present: alert - Skin Skin exam: Present: warm, dry ED Course Vital Signs 11/02/18 11/02/18 11/02/18 23:10 23:28 23:30 Temperature 99.7 F H Pulse Rate 106 H Respiratory 26 H 26 H Rate Blood Pressure 117/71 Blood Pressure 117/71 [Right] O2 Sat by Pulse 94 94 100 Oximetry O2 Sat by Pulse 100 Oximetry [ Assessment] ED Medical Decision Making - Lab Data Result diagrams: 11/02/18 23:42 11/02/18 23:42 - Radiology Data Radiology results: report reviewed Chest x-ray is unremarkable. - Medical Decision Making Patient is 73 years old female, retirement patient, history of anoxic brain injury with chronic respiratory failure, tracheostomy in place, diabetes history of cardiac arrest. Patient brought to the emergency room from a retirement for evaluation of vomiting, tachypnea and a low-grade temperature for the last day. Patient is unable to communicate. Sepsis protocol initiated immediately. Patient has one more episode off coffee ground emesis. Gastroccult is positive. Stool hemoocult is positive. H&H are stable. Tracheostomy tube replaced by respiratory therapist. Chest x-ray is unremarkable. Patient is started on Protonix drip. I discussed the patient is Dr. Paulson from gastroenterology who advised to admit to the hospital and keep patient nothing by mouth. I discussed the patient was , she had attended the patient's medical service for further management. Critical Care Time: Yes Critical care time in (mins) excluding proc time.: 30 Critical care attestation.: If time is entered above; I have spent that time in minutes in the direct care of this critically ill patient, excluding procedure time. ED Disposition Clinical Impression: Gastrointestinal hemorrhage, Sepsis Disposition: OP ADMIT IP TO THIS HOSP Is pt being admited?: Yes Condition: Stable Referrals: DANIE ASH MD [Primary Care Provider] - 3-5 Days Forms: Accompanied Note
[2018-11-02 23:56] LABS: Basophils % (Auto) 0.4 % (0.0-1.8); Hematocrit 37.7 % (30.3-42.9); Hemoglobin 12.4 gm/dl (10.1-14.3); Lymphocytes # (Auto) 1.2 K/mm3 (1.2-5.4); Lymphocytes % (Auto) 11.3 % (13.4-35.0); Mean Corpuscular HGB Conc 33 % (30-34); Mean Corpuscular Volume 78 fl (79-97); Monocytes # (Auto) 0.5 K/mm3 (0.0-0.8); Monocytes % (Auto) 5.3 % (0.0-7.3); Platelet Count 334 K/mm3 (140-440); Red Blood Count 4.86 M/mm3 (3.65-5.03); Red Cell Distribution Width 18.8 % (13.2-15.2)
[2018-11-03 00:12] LABS: BUN/Creatinine Ratio 46; Blood Urea Nitrogen 41 mg/dL (7-17); Calcium 10.4 mg/dL (8.4-10.2); Hemolysis Index 27
[2018-11-03 00:25] LABS: INR 1.09 (0.87-1.13)
--- NOTE | 2018-11-03 00:27 | XRay Report ---
PROCEDURE: XR CHEST 1V AP TECHNIQUE: Chest radiograph single view. HISTORY: cough COMPARISONS: February 27, 2018 . FINDINGS: Heart: Normal. Mediastinum/Vessels: Normal. Lungs/Pleural space: Normal. Bony thorax: No acute osseous abnormality. Life support devices: There is a tracheostomy tube noted. IMPRESSION: No acute cardiopulmonary abnormality. This document is electronically signed by Katerina Tapia DO., November 03 2018 12:25:49 AM ET
[2018-11-03 00:39] LABS: Alanine Aminotransferase 20 units/L (7-56); Albumin 3.5 g/dL (3.9-5)
[2018-11-03 00:43] LABS: Bilirubin,Direct < 0.2 mg/dL (0-0.2)
[2018-11-03] MEDS ORDERED: NACL 0.9% 1000 ML 1,000 ML ONE (01:48)
[2018-11-03 03:01] LABS: Bacteria,Urine 1+ /HPF (Negative); Bilirubin,Urine NEG (Negative); Blood,Urine SM (Negative); Color,Urine Yellow (Yellow); Urobilinogen,Urine < 2.0 mg/dL (<2.0)
--- NOTE | 2018-11-03 10:48 | Gastroenterology Consultation ---
<FERNANDO RAINEY - Last Filed: 11/03/18 11:39> History of Present Illness - Reason for Consult Consult date: 11/03/18 GI bleed Requesting physician: ALIYAH ESPINOZA - History of Present Illness Patient is a 73 y/o female [facility] resident/DNR with PMH of DM, HTN, shizo?, chronic decubitus ulcers, history of anoxic brain injury (s/p trach/PEG; aphasia), chronic debility/contractures, chronic indwelling garcia (multiple UTIs), left foot necrosis, and cardiac arrest who was brought to ED for tachypnea, low-grade fever, and vomiting. She was admitted with sepsis protocol initiated. GI has been consulted for coffee-ground emesis/GI bleed. Patient is previously known to our service from a prior hosptial consult in 07/2017 for evaluation of PEG (infection?) with PEG site benign and placement confirmed with G-tube study. This morning patient was resting in bed w/o acute distress. No active signs of bleeding this am per nursing. No evidence of abd pain, vomiting, hematemesis, or hematochezia. Upon exam, PEG site w/o s/s of infection or bleeding with residual non-bloody and rectal with light brown stool. According to daughter, no known hx of GI bleeding, PUD, liver disease, or Fhx of GI cancers. Previous colonoscopy unknown. Past History Past Medical History: other (as per HPI) Past Surgical History: hysterectomy, mastectomy, Other (trach/PEG) Social history: other ([facility] resident; DNR) Medications and Allergies Allergies Allergy/AdvReac Type Severity Reaction Status Date / Time No Known Allergies Allergy Unverified 09/30/13 14:18 Home Medications Medication Instructions Recorded Confirmed Last Taken Type Glycopyrrolate [Robinul] 1 mg PO BID 07/29/17 11/03/18 Unknown History Ipratropium/Albuterol Sulfate 1 ampul IH Q4HR 07/29/17 11/03/18 Unknown History [DUONEB *Not for PRN Use*] Famotidine [Pepcid] 20 mg PO BID #60 tablet 08/07/17 11/03/18 Unknown Rx Acetaminophen [Acetaminophen 650 mg HI Q6H PRN 11/03/18 11/03/18 Unknown History SUPPOS] Acetaminophen [Tylenol] 650 mg PO Q4H PRN 11/03/18 11/03/18 Unknown History Aspirin [Aspirin BABY CHEW TAB] 81 mg PO QDAY 11/03/18 11/03/18 Unknown History Baclofen [Lioresal] 10 mg PO BID 11/03/18 11/03/18 Unknown History Bisacodyl [Dulcolax suppos] 10 mg HI QDAY PRN 11/03/18 11/03/18 Unknown History Cranberry Fruit Concentrate 450 mg PO BID 11/03/18 11/03/18 Unknown History [Cranberry] Glucagon (Human Recomb) [Glucagen] 1 mg IM Q24H PRN 11/03/18 11/03/18 Unknown History HYDROcodone/APAP 7.5-325 [[place] 1 each PO Q8HR PRN 11/03/18 11/03/18 Unknown History 7.5/325] Hyoscyamine Sulfate [Hyoscyamine 0.125 mg PO Q4H PRN 11/03/18 11/03/18 Unknown History Rapdis 0.125 mg] Insulin Glargine [Lantus] 10 unit SUB-Q QHS 11/03/18 11/03/18 Unknown History LORazepam [Ativan] 1 mg PO Q4H PRN 11/03/18 11/03/18 Unknown History Magnesium Hydroxide [Milk of 30 ml PO Q3D 11/03/18 11/03/18 Unknown History Magnesia] Morphine Concentrate [MORPHINE 0.25 ml PO Q4HR PRN 11/03/18 11/03/18 Unknown History Conc 20 MG/ML ORAL LIQ] Promethazine [Phenergan] 25 mg PO Q4H PRN 11/03/18 11/03/18 Unknown History Promethazine [Phenergan] 25 mg PO Q8HR PRN 11/03/18 11/03/18 Unknown History Promethazine [Phenergan] 25 mg HI Q4H PRN 11/03/18 11/03/18 Unknown History Sennosides Tab [Senokot] 17.2 mg PO BID 11/03/18 11/03/18 Unknown History Active Meds: Active Medications Pantoprazole Sodium 80 mg/ (Sodium Chloride) 100 mls @ 10 mls/hr IV DIRECT TIMMY Last Admin: 11/03/18 00:30 Dose: 8 mg/hr, 10 mls/hr Documented by: medications reviewed/updated as required Review of Systems - Review of Systems ROS unobtainable: due to mental status Exam - Constitutional Vital Signs: Temp Pulse Resp BP Pulse Ox 97.5 F L 80 18 116/70 97 11/03/18 08:05 11/03/18 05:10 11/03/18 08:05 11/03/18 08:05 11/03/18 09:00 General appearance: no acute distress, other (aphasic) - EENT ENT: other (+trach) - Respiratory Respiratory effort: normal Respiratory: bilateral: diminished - Cardiovascular Rhythm: regular - Gastrointestinal General gastrointestinal: Present: soft, non-distended, normal bowel sounds, other (+PEG) Rectal Exam: other (light brown stool (ldr rn present during exam-Francie CARABALLO)) - Musculoskeletal Musculoskeletal: other (contractures; decubitous ulcers; dressing on LLE) - Labs CBC & Chem 7: 11/02/18 23:42 11/02/18 23:42 Lab Results: Laboratory Results - last 24 hr 11/02/18 11/02/18 11/02/18 23:42 23:42 23:54 WBC 10.2 RBC 4.86 Hgb 12.4 Hct 37.7 MCV 78 L MCH 26 L MCHC 33 RDW 18.8 H Plt Count 334 Lymph % (Auto) 11.3 L [place] % (Auto) 5.3 Eos % (Auto) 0.0 Baso % (Auto) 0.4 Lymph # 1.2 [place] # 0.5 Eos # 0.0 Baso # 0.0 Seg Neutrophils % 83.0 H Seg Neutrophils # 8.5 H PT INR APTT Sodium 142 Potassium 3.8 Chloride 94.4 L Carbon Dioxide 31 H Anion Gap 20 BUN 41 H Creatinine 0.9 Estimated GFR > 60 BUN/Creatinine Ratio 46 Glucose 149 H Lactic Acid 2.20 H* Calcium 10.4 H Total Bilirubin Direct Bilirubin Indirect Bilirubin AST ALT Alkaline Phosphatase Total Protein Albumin Albumin/Globulin Ratio Urine Color Urine Turbidity Urine pH Ur Specific [place] Urine Protein Urine Glucose (UA) Urine Ketones Urine Blood Urine Nitrite Urine Bilirubin Urine Urobilinogen Ur Leukocyte Esterase Urine WBC (Auto) Urine RBC (Auto) Urine Bacteria (Auto) Blood Type Antibody Screen 11/02/18 11/02/18 11/03/18 23:54 23:54 00:02 WBC RBC Hgb Hct MCV MCH MCHC RDW Plt Count Lymph % (Auto) [place] % (Auto) Eos % (Auto) Baso % (Auto) Lymph # [place] # Eos # Baso # Seg Neutrophils % Seg Neutrophils # PT 13.8 INR 1.09 APTT 25.0 Sodium Potassium Chloride Carbon Dioxide Anion Gap BUN Creatinine Estimated GFR BUN/Creatinine Ratio Glucose Lactic Acid Calcium Total Bilirubin 0.20 Direct Bilirubin < 0.2 Indirect Bilirubin 0.0 AST 24 ALT 20 Alkaline Phosphatase 113 Total Protein 7.7 Albumin 3.5 L Albumin/Globulin Ratio 0.8 Urine Color Urine Turbidity Urine pH Ur Specific [place] Urine Protein Urine Glucose (UA) Urine Ketones Urine Blood Urine Nitrite Urine Bilirubin Urine Urobilinogen Ur Leukocyte Esterase Urine WBC (Auto) Urine RBC (Auto) Urine Bacteria (Auto) Blood Type O POSITIVE Antibody Screen Negative 11/03/18 11/03/18 02:38 Unknown WBC RBC Hgb Hct MCV MCH MCHC RDW Plt Count Lymph % (Auto) [place] % (Auto) Eos % (Auto) Baso % (Auto) Lymph # [place] # Eos # Baso # Seg Neutrophils % Seg Neutrophils # PT INR APTT Sodium Potassium Chloride Carbon Dioxide Anion Gap BUN Creatinine Estimated GFR BUN/Creatinine Ratio Glucose Lactic Acid 2.80 H* Calcium Total Bilirubin Direct Bilirubin Indirect Bilirubin AST ALT Alkaline Phosphatase Total Protein Albumin Albumin/Globulin Ratio Urine Color Yellow Urine Turbidity Cloudy Urine pH 8.0 H Ur Specific [place] 1.020 Urine Protein 100 mg/dl Urine Glucose (UA) Neg Urine Ketones Neg Urine Blood Sm Urine Nitrite Neg Urine Bilirubin Neg Urine Urobilinogen < 2.0 Ur Leukocyte Esterase Lg Urine WBC (Auto) 63.0 H Urine RBC (Auto) 105.0 Urine Bacteria (Auto) 1+ Blood Type Antibody Screen Assessment and Plan 1.GI bleed/coffee ground emesis -gastric/stool occult positive -INR 1.09 -LFTs WNL -H/H WNL (12.4/37.7) -continue to monitor H/H and transfuse as needed -no active signs of bleeding this am per nursing (PEG site w/o s/s of infection with residual non-bloody; bumper loosened to prevent skin breakdown or internal ulceration; rectal with light brown stool) -etiology unclear- possible ulcer vs other -called and discussed the option of endoscopic evaluation vs conservative management with patient's daughter (Ludwin [phone]) to include risks (patient higher risk given co-morbidities) vs benefits. She wishes to proceed with conservative management at this time but is agreeable for emergent endoscopy if needed for overt bleeding. No clinical evidence of significant GI bleeding at this time, so will proceed with conservative management as above unless overt bleeding develops. -continue PPI BID (d/c protonix drip) -okay to resume TFs -continue supportive care -if H/H remains stable and no further signs of bleeding in am, patient okay to be d/c on daily PPI per GI standpoint with f/u in clinic <PIA VAIL - Last Filed: 11/03/18 23:13> Medications and Allergies Active Meds: Active Medications Acetaminophen (Tylenol) 650 mg PO Q4H PRN PRN Reason: Pain, Mild (1-3) Acetaminophen (Tylenol) 650 mg HI Q4H PRN PRN Reason: Pain, Mild (1-3) Acetaminophen/Hydrocodone Bitart ([place] 7.5/325) 1 each PO Q4H PRN PRN Reason: Pain, Moderate (4-6) Albuterol/Ipratropium (Duoneb *Not For Prn Use*) 1 ampul IH Q4HRT [facility] Last Admin: 11/03/18 19:52 Dose: 1 ampul Documented by: Aspirin (Baby Aspirin) 81 mg PO QDAY [facility] Baclofen (Lioresal) 10 mg PO BID [facility] Last Admin: 11/03/18 22:24 Dose: 10 mg Documented by: Bisacodyl (Dulcolax) 10 mg HI QDAY PRN PRN Reason: Constipation Famotidine (Pepcid) 20 mg PO BID [facility] Last Admin: 11/03/18 22:24 Dose: 20 mg Documented by: Glucagon (Glucagen) 1 mg IM Q24H PRN PRN Reason: Hypoglycemia Glycopyrrolate (Robinul) 1 mg PO BID [facility] Last Admin: 11/03/18 22:25 Dose: 1 mg Documented by: Hyoscyamine (Levsin Sl) 0.125 mg SL Q4H PRN PRN Reason: EXCESSIVE SECRETION Sodium Chloride (Nacl 0.9% 500 Ml) 500 mls @ 50 mls/hr IV DIRECT NR Stop: 11/04/18 06:00 Last Admin: 11/03/18 22:26 Dose: 50 mls/hr Documented by: Insulin Glargine (Lantus) 10 units SUB-Q QHS [facility] Last Admin: 11/03/18 22:24 Dose: 10 units Documented by: Lorazepam (Ativan) 1 mg PO Q4H PRN PRN Reason: Anxiety/Agitation Magnesium Hydroxide (Milk Of Magnesia) 30 ml PO Q3D [facility] Last Admin: 11/03/18 22:23 Dose: 30 ml Documented by: Morphine Sulfate (Roxanol Concentrate) 5 mg PO Q4H PRN PRN Reason: Pain , Severe (7-10) Pantoprazole Sodium (Protonix) 40 mg IV BID [facility] Last Admin: 11/03/18 22:25 Dose: 40 mg Documented by: Promethazine HCl (Phenergan) 25 mg PO Q4H PRN PRN Reason: Nausea And Vomiting Promethazine HCl (Phenergan) 25 mg PO Q8HR PRN PRN Reason: Nausea Promethazine HCl (Phenergan) 25 mg HI Q4H PRN PRN Reason: Nausea/ Vomiting Senna (Senokot) 17.2 mg PO BID [facility] Last Admin: 11/03/18 22:25 Dose: 17.2 mg Documented by: Exam - Constitutional Vital Signs: Temp Pulse Resp BP Pulse Ox 98.7 F 116 H 16 113/64 100 11/03/18 18:38 11/03/18 20:04 11/03/18 20:04 11/03/18 18:38 11/03/18 19:53 - Labs CBC & Chem 7: 11/02/18 23:42 11/02/18 23:42 Lab Results: Laboratory Results - last 24 hr 11/02/18 11/02/18 11/02/18 23:42 23:42 23:54 WBC 10.2 RBC 4.86 Hgb 12.4 Hct 37.7 MCV 78 L MCH 26 L MCHC 33 RDW 18.8 H Plt Count 334 Lymph % (Auto) 11.3 L [place] % (Auto) 5.3 Eos % (Auto) 0.0 Baso % (Auto) 0.4 Lymph # 1.2 [place] # 0.5 Eos # 0.0 Baso # 0.0 Seg Neutrophils % 83.0 H Seg Neutrophils # 8.5 H PT INR APTT POC ABG pH POC ABG pCO2 POC ABG pO2 POC ABG HCO3 POC ABG Total CO2 POC ABG O2 Sat POC ABG Base Excess FiO2 Sodium 142 Potassium 3.8 Chloride 94.4 L Carbon Dioxide 31 H Anion Gap 20 BUN 41 H Creatinine 0.9 Estimated GFR > 60 BUN/Creatinine Ratio 46 Glucose 149 H POC Glucose Lactic Acid 2.20 H* Calcium 10.4 H Total Bilirubin Direct Bilirubin Indirect Bilirubin AST ALT Alkaline Phosphatase Total Protein Albumin Albumin/Globulin Ratio Urine Color Urine Turbidity Urine pH Ur Specific [place] Urine Protein Urine Glucose (UA) Urine Ketones Urine Blood Urine Nitrite Urine Bilirubin Urine Urobilinogen Ur Leukocyte Esterase Urine WBC (Auto) Urine RBC (Auto) Urine Bacteria (Auto) Blood Type Antibody Screen 11/02/18 11/02/18 11/03/18 23:54 23:54 00:02 WBC RBC Hgb Hct MCV MCH MCHC RDW Plt Count Lymph % (Auto) [place] % (Auto) Eos % (Auto) Baso % (Auto) Lymph # [place] # Eos # Baso # Seg Neutrophils % Seg Neutrophils # PT 13.8 INR 1.09 APTT 25.0 POC ABG pH POC ABG pCO2 POC ABG pO2 POC ABG HCO3 POC ABG Total CO2 POC ABG O2 Sat POC ABG Base Excess FiO2 Sodium Potassium Chloride Carbon Dioxide Anion Gap BUN Creatinine Estimated GFR BUN/Creatinine Ratio Glucose POC Glucose Lactic Acid Calcium Total Bilirubin 0.20 Direct Bilirubin < 0.2 Indirect Bilirubin 0.0 AST 24 ALT 20 Alkaline Phosphatase 113 Total Protein 7.7 Albumin 3.5 L Albumin/Globulin Ratio 0.8 Urine Color Urine Turbidity Urine pH Ur Specific [place] Urine Protein Urine Glucose (UA) Urine Ketones Urine Blood Urine Nitrite Urine Bilirubin Urine Urobilinogen Ur Leukocyte Esterase Urine WBC (Auto) Urine RBC (Auto) Urine Bacteria (Auto) Blood Type O POSITIVE Antibody Screen Negative 11/03/18 11/03/18 11/03/18 02:38 11:31 12:41 WBC RBC Hgb Hct MCV MCH MCHC RDW Plt Count Lymph % (Auto) [place] % (Auto) Eos % (Auto) Baso % (Auto) Lymph # [place] # Eos # Baso # Seg Neutrophils % Seg Neutrophils # PT INR APTT POC ABG pH POC ABG pCO2 POC ABG pO2 POC ABG HCO3 POC ABG Total CO2 POC ABG O2 Sat POC ABG Base Excess FiO2 Sodium Potassium Chloride Carbon Dioxide Anion Gap BUN Creatinine Estimated GFR BUN/Creatinine Ratio Glucose POC Glucose 98 Lactic Acid 1.10 Calcium Total Bilirubin Direct Bilirubin Indirect Bilirubin AST ALT Alkaline Phosphatase Total Protein Albumin Albumin/Globulin Ratio Urine Color Yellow Urine Turbidity Cloudy Urine pH 8.0 H Ur Specific [place] 1.020 Urine Protein 100 mg/dl Urine Glucose (UA) Neg Urine Ketones Neg Urine Blood Sm Urine Nitrite Neg Urine Bilirubin Neg Urine Urobilinogen < 2.0 Ur Leukocyte Esterase Lg Urine WBC (Auto) 63.0 H Urine RBC (Auto) 105.0 Urine Bacteria (Auto) 1+ Blood Type Antibody Screen 11/03/18 11/03/18 11/03/18 18:36 20:39 22:14 WBC RBC Hgb Hct MCV MCH MCHC RDW Plt Count Lymph % (Auto) [place] % (Auto) Eos % (Auto) Baso % (Auto) Lymph # [place] # Eos # Baso # Seg Neutrophils % Seg Neutrophils # PT INR APTT POC ABG pH 7.417 POC ABG pCO2 43.4 POC ABG pO2 106 H POC ABG HCO3 27.9 POC ABG Total CO2 29 POC ABG O2 Sat 98 POC ABG Base Excess 3 FiO2 28 Sodium Potassium Chloride Carbon Dioxide Anion Gap BUN Creatinine Estimated GFR BUN/Creatinine Ratio Glucose POC Glucose 101 109 H Lactic Acid Calcium Total Bilirubin Direct Bilirubin Indirect Bilirubin AST ALT Alkaline Phosphatase Total Protein Albumin Albumin/Globulin Ratio Urine Color Urine Turbidity Urine pH Ur Specific [place] Urine Protein Urine Glucose (UA) Urine Ketones Urine Blood Urine Nitrite Urine Bilirubin Urine Urobilinogen Ur Leukocyte Esterase Urine WBC (Auto) Urine RBC (Auto) Urine Bacteria (Auto) Blood Type Antibody Screen 11/03/18 Unknown WBC RBC Hgb Hct MCV MCH MCHC RDW Plt Count Lymph % (Auto) [place] % (Auto) Eos % (Auto) Baso % (Auto) Lymph # [place] # Eos # Baso # Seg Neutrophils % Seg Neutrophils # PT INR APTT POC ABG pH POC ABG pCO2 POC ABG pO2 POC ABG HCO3 POC ABG Total CO2 POC ABG O2 Sat POC ABG Base Excess FiO2 Sodium Potassium Chloride Carbon Dioxide Anion Gap BUN Creatinine Estimated GFR BUN/Creatinine Ratio Glucose POC Glucose Lactic Acid 2.80 H* Calcium Total Bilirubin Direct Bilirubin Indirect Bilirubin AST ALT Alkaline Phosphatase Total Protein Albumin Albumin/Globulin Ratio Urine Color Urine Turbidity Urine pH Ur Specific [place] Urine Protein Urine Glucose (UA) Urine Ketones Urine Blood Urine Nitrite Urine Bilirubin Urine Urobilinogen Ur Leukocyte Esterase Urine WBC (Auto) Urine RBC (Auto) Urine Bacteria (Auto) Blood Type Antibody Screen Assessment and Plan Patient seen and examined. I agree with the advanced practitioner's assessment and plan, with the following additions: Patient without active GI bleeding, no apparent TTP on abd exam, given RBA of endoscopy in this setting of stable Hgb with no major bleeding, family opts against endoscopy.
[2018-11-03] MEDS ORDERED: MORPHINE PO PRN (19:18)
[2018-11-03] MEDS ORDERED: ATIVAN PO PRN (19:18)
[2018-11-03] MEDS ORDERED: PHENERGAN PO PRN ×2 (19:18)
[2018-11-03] MEDS ORDERED: NON-FORMULARY (Hyoscyamine Sulfate [Hyoscyamine Rapdis 0.125 Mg] 0.125 MG) PO PRN (19:18)
[2018-11-03] MEDS ORDERED: DULCOLAX PR PRN (19:18)
[2018-11-03] MEDS ORDERED: GLUCAGEN IM PRN (19:18)
[2018-11-03] MEDS ORDERED: TYLENOL PR PRN ×2 (19:18→20:00)
[2018-11-03] MEDS ORDERED: PHENERGAN PR PRN (19:18)
[2018-11-03] MEDS ORDERED: NACL 0.9% 500 ML 500 ML IV SCH (19:22)
--- NOTE | 2018-11-03 19:29 | History and Physical Report ---
History of Present Illness Date of examination: 11/03/18 Date of admission: 11/03/18 03:36 Chief complaint: GI bleed History of present illness: Patient presented to the Er, after found with vomiting Bright red blood. ER w/up revealed the same, patient was admitted for sxs management, stabilization. GI was consulted, their recommendation appreciated.UA showed UTI, and patient started on IV ABX. Past History Past Medical History: anemia, stroke, other (as per HPI) Past Surgical History: hysterectomy, mastectomy, Other (trach/PEG) Social history: other (Lives at the [facility].) Medications and Allergies Allergies Allergy/AdvReac Type Severity Reaction Status Date / Time No Known Allergies Allergy Unverified 09/30/13 14:18 Home Medications Medication Instructions Recorded Confirmed Last Taken Type Glycopyrrolate [Robinul] 1 mg PO BID 07/29/17 11/03/18 Unknown History Ipratropium/Albuterol Sulfate 1 ampul IH Q4HR 07/29/17 11/03/18 Unknown History [DUONEB *Not for PRN Use*] Famotidine [Pepcid] 20 mg PO BID #60 tablet 08/07/17 11/03/18 Unknown Rx Acetaminophen [Acetaminophen 650 mg [place] Q6H PRN 11/03/18 11/03/18 Unknown History SUPPOS] Acetaminophen [Tylenol] 650 mg PO Q4H PRN 11/03/18 11/03/18 Unknown History Aspirin [Aspirin BABY CHEW TAB] 81 mg PO QDAY 11/03/18 11/03/18 Unknown History Baclofen [Lioresal] 10 mg PO BID 11/03/18 11/03/18 Unknown History Bisacodyl [Dulcolax suppos] 10 mg [place] QDAY PRN 11/03/18 11/03/18 Unknown History Cranberry Fruit Concentrate 450 mg PO BID 11/03/18 11/03/18 Unknown History [Cranberry] Glucagon (Human Recomb) [Glucagen] 1 mg IM Q24H PRN 11/03/18 11/03/18 Unknown History HYDROcodone/APAP 7.5-325 [[place] 1 each PO Q8HR PRN 11/03/18 11/03/18 Unknown History 7.5/325] Hyoscyamine Sulfate [Hyoscyamine 0.125 mg PO Q4H PRN 11/03/18 11/03/18 Unknown History Rapdis 0.125 mg] Insulin Glargine [Lantus] 10 unit SUB-Q QHS 11/03/18 11/03/18 Unknown History LORazepam [Ativan] 1 mg PO Q4H PRN 11/03/18 11/03/18 Unknown History Magnesium Hydroxide [Milk of 30 ml PO Q3D 11/03/18 11/03/18 Unknown History Magnesia] Morphine Concentrate [MORPHINE 0.25 ml PO Q4HR PRN 11/03/18 11/03/18 Unknown History Conc 20 MG/ML ORAL LIQ] Promethazine [Phenergan] 25 mg PO Q4H PRN 11/03/18 11/03/18 Unknown History Promethazine [Phenergan] 25 mg PO Q8HR PRN 11/03/18 11/03/18 Unknown History Promethazine [Phenergan] 25 mg [place] Q4H PRN 11/03/18 11/03/18 Unknown History Sennosides Tab [Senokot] 17.2 mg PO BID 11/03/18 11/03/18 Unknown History Active Meds: Active Medications Acetaminophen (Tylenol) 650 mg [place] Q6H PRN PRN Reason: Pain/ Fever Acetaminophen (Tylenol) 650 mg PO Q4H PRN PRN Reason: Pain Acetaminophen/Hydrocodone Bitart ([place] 7.5/325) 1 each PO Q8HR PRN PRN Reason: Pain Albuterol/Ipratropium (Duoneb *Not For Prn Use*) 1 ampul IH Q4HR [facility] Aspirin (Baby Aspirin) 81 mg PO QDAY [facility] Baclofen (Lioresal) 10 mg PO BID TIMMY Bisacodyl (Dulcolax) 10 mg [place] QDAY PRN PRN Reason: Constipation Famotidine (Pepcid) 20 mg PO BID [facility] Glucagon (Glucagen) 1 mg IM Q24H PRN PRN Reason: Hypoglycemia Glycopyrrolate (Robinul) 1 mg PO BID [facility] Sodium Chloride (Nacl 0.9% 500 Ml) 500 mls @ 0 mls/hr IV Q24HR ONE Stop: 11/03/18 19:23 Insulin Glargine (Lantus) 10 units SUB-Q QHS [facility] Lorazepam (Ativan) 1 mg PO Q4H PRN PRN Reason: Anxiety/Agitation Magnesium Hydroxide (Milk Of Magnesia) 30 ml PO Q3D TIMMY Miscellaneous Medication (Cranberry Fruit Concentrate [Cranberry]) 450 mg PO BID TIMMY Miscellaneous Medication (Hyoscyamine Sulfate [Hyoscyamine Rapdis 0.125 Mg]) 0.125 mg PO Q4H PRN PRN Reason: Excess secretions Miscellaneous Medication (Morphine Concentrate) 0.25 ml PO Q4HR PRN PRN Reason: Pain , Severe (7-10) Pantoprazole Sodium (Protonix) 40 mg IV BID TIMMY Promethazine HCl (Phenergan) 25 mg PO Q4H PRN PRN Reason: Nausea And Vomiting Promethazine HCl (Phenergan) 25 mg PO Q8HR PRN PRN Reason: Nausea Promethazine HCl (Phenergan) 25 mg [place] Q4H PRN PRN Reason: Nausea/ Vomiting Senna (Senokot) 17.2 mg PO BID [facility] Review of Systems Constitutional: weakness Breasts: deferred Exam - Constitutional Vitals: Temp Pulse Resp BP Pulse Ox 98.7 F 99 H 18 113/64 100 11/03/18 18:38 11/03/18 18:38 11/03/18 18:38 11/03/18 18:38 11/03/18 18:38 General appearance: Present: mild distress - EENT Eyes: Present: PERRL ENT: hearing intact, clear oral mucosa - Neck Neck: Present: supple, normal ROM - Respiratory Respiratory effort: normal Respiratory: bilateral: CTA - Cardiovascular Heart Sounds: Present: S1 & S2. Absent: rub, click - Extremities Extremities: pulses symmetrical, No edema Peripheral Pulses: within normal limits - Abdominal General gastrointestinal: Present: soft, non-tender, non-distended, normal bowel sounds Female genitourinary: Present: deferred - Rectal Rectal Exam: deferred - Integumentary Integumentary: Present: clear, warm, dry - Psychiatric Psychiatric: intact judgment & insight - Neurologic Neurologic: moves all extremities Results - Labs CBC & Chem 7: 11/02/18 23:42 11/02/18 23:42 Labs: Abnormal lab results 11/02/18 11/02/18 11/02/18 Range/Units 23:42 23:42 23:54 MCV 78 L (79-97) fl MCH 26 L (28-32) pg RDW 18.8 H (13.2-15.2) % Lymph % (Auto) 11.3 L (13.4-35.0) % Seg Neutrophils % 83.0 H (40.0-70.0) % Seg Neutrophils # 8.5 H (1.8-7.7) K/mm3 Chloride 94.4 L (98-107) mmol/L Carbon Dioxide 31 H (22-30) mmol/L BUN 41 H (7-17) mg/dL Glucose 149 H (65-100) mg/dL Lactic Acid 2.20 H* (0.7-2.0) mmol/L Calcium 10.4 H (8.4-10.2) mg/dL Albumin (3.9-5) g/dL Urine pH (5.0-7.0) Urine WBC (Auto) (0.0-6.0) /HPF 11/02/18 11/03/18 11/03/18 Range/Units 23:54 02:38 Unknown MCV (79-97) fl MCH (28-32) pg RDW (13.2-15.2) % Lymph % (Auto) (13.4-35.0) % Seg Neutrophils % (40.0-70.0) % Seg Neutrophils # (1.8-7.7) K/mm3 Chloride (98-107) mmol/L Carbon Dioxide (22-30) mmol/L BUN (7-17) mg/dL Glucose (65-100) mg/dL Lactic Acid 2.80 H* (0.7-2.0) mmol/L Calcium (8.4-10.2) mg/dL Albumin 3.5 L (3.9-5) g/dL Urine pH 8.0 H (5.0-7.0) Urine WBC (Auto) 63.0 H (0.0-6.0) /HPF Assessment and Plan - Patient Problems (1) GI bleed Current Visit: Yes Status: Acute Plan to address problem: GI consult. (2) Dehydration Current Visit: No Status: Acute Plan to address problem: Hydration. (3) UTI (urinary tract infection) Current Visit: Yes Status: Acute Plan to address problem: IV ABX. (4) UTI (urinary tract infection) Current Visit: No Status: Chronic Plan to address problem: IV ABX.
[2018-11-03] MEDS ORDERED: TYLENOL PO PRN (19:43)
[2018-11-03] MEDS ORDERED: LEVSIN SL SL PRN (19:49)
[2018-11-03] MEDS: DUONEB *Not for PRN Use IH SCH ×2 (19:52→23:58)
[2018-11-03] MEDS ORDERED: ROXANOL PO PRN ×2 (19:55→20:00)
[2018-11-03] MEDS ORDERED: NACL 0.9% 500 ML 500 ML IV NR (22:00)
[2018-11-03] MEDS ORDERED: CRANBERRY FRUIT 450 MG PO SCH (22:00)
[2018-11-03] MEDS: MILK OF MAGNESIA PO SCH (22:23)
[2018-11-03] MEDS: LIORESAL PO SCH (22:24)
[2018-11-03] MEDS: LANTUS SUB-Q SCH (22:24)
[2018-11-03] MEDS: PEPCID PO SCH (22:24)
[2018-11-03] MEDS: SENOKOT PO SCH (22:25)
[2018-11-03] MEDS: ROBINUL PO SCH (22:25)
[2018-11-03] MEDS: PROTONIX IV SCH (22:25)
[2018-11-04] MEDS: DUONEB *Not for PRN Use IH SCH ×5 (03:36→21:02)
[2018-11-04] MEDS ORDERED: NACL 0.9% 500 ML 500 ML IV ONE (05:20)
[2018-11-04 05:31] LABS: Basophils % (Auto) 0.2 % (0.0-1.8); Hematocrit 32.6 % (30.3-42.9); Hemoglobin 10.7 gm/dl (10.1-14.3); Lymphocytes # (Auto) 0.7 K/mm3 (1.2-5.4); Lymphocytes % (Auto) 7.9 % (13.4-35.0); Mean Corpuscular HGB Conc 33 % (30-34); Mean Corpuscular Volume 79 fl (79-97); Monocytes # (Auto) 0.3 K/mm3 (0.0-0.8); Monocytes % (Auto) 3.9 % (0.0-7.3); Platelet Count 312 K/mm3 (140-440); Red Blood Count 4.11 M/mm3 (3.65-5.03); Red Cell Distribution Width 19.6 % (13.2-15.2)
[2018-11-04] MEDS: NACL 0.9% 1000 ML 1,000 ML IV SCH ×2 (06:58→18:54)
[2018-11-04] MEDS ORDERED: SIMPLE SYRUP FEEDTUBE PRN ×2 (08:09)
[2018-11-04] MEDS ORDERED: SODIUM BICARBONATE FEEDTUBE PRN (08:09)
[2018-11-04] MEDS ORDERED: PANCREAZE DR 10,500 UNIT FEEDTUBE PRN (08:09)
--- NOTE | 2018-11-04 09:24 | Progress Note ---
Assessment and Plan - Patient Problems (1) GI bleed Current Visit: Yes Status: Acute Plan to address problem: GI consult. (2) Dehydration Current Visit: No Status: Acute Plan to address problem: Hydration. (3) UTI (urinary tract infection) Current Visit: Yes Status: Acute Plan to address problem: IV ABX. (4) UTI (urinary tract infection) Current Visit: No Status: Chronic Plan to address problem: IV ABX. Subjective Date of service: 11/04/18 Principal diagnosis: GI bleed Interval history: Patient seen/examined, resting in bed, labs/cultures reviewed, sputum with Gram positive cocci, stool / treachial asp tested positive for blood. GI on the case. Will add vanco to ABX. Objective - Constitutional Vitals: Vital Signs - 12hr 11/03/18 11/03/18 11/04/18 23:45 23:59 00:00 Temperature 98.4 F Pulse Rate 125 H Pulse Rate [ 120 H Anterior Bilateral] Respiratory 18 Rate Respiratory 20 Rate [Anterior Bilateral] Blood Pressure 102/51 O2 Sat by Pulse 100 Oximetry O2 Sat by Pulse 100 Oximetry [ Assessment] 11/04/18 11/04/18 11/04/18 00:06 00:40 03:36 Temperature Pulse Rate 128 H Pulse Rate [ 122 H 136 H Anterior Bilateral] Respiratory Rate Respiratory 20 25 H Rate [Anterior Bilateral] Blood Pressure O2 Sat by Pulse Oximetry O2 Sat by Pulse Oximetry [ Assessment] 11/04/18 11/04/18 11/04/18 03:44 04:34 04:55 Temperature 98.0 F Pulse Rate 120 H 111 H Pulse Rate [ 128 H Anterior Bilateral] Respiratory 18 Rate Respiratory 20 Rate [Anterior Bilateral] Blood Pressure 82/52 O2 Sat by Pulse 88 Oximetry O2 Sat by Pulse Oximetry [ Assessment] 11/04/18 11/04/18 06:36 07:51 Temperature 98.4 F Pulse Rate 101 H Pulse Rate [ Anterior Bilateral] Respiratory 18 Rate Respiratory Rate [Anterior Bilateral] Blood Pressure 98/47 129/84 O2 Sat by Pulse 99 Oximetry O2 Sat by Pulse Oximetry [ Assessment] General appearance: Present: mild distress - EENT Eyes: PERRL, EOM intact ENT: hearing intact, clear oral mucosa Ears: bilateral: normal - Neck Neck: supple, normal ROM - Respiratory Respiratory: bilateral: diminished - Breasts Breasts: deferred - Cardiovascular Rhythm: regular Heart Sounds: Present: S1 & S2. Absent: gallop, rub Extremities: pulses intact, No edema, normal color, Full ROM - Gastrointestinal General gastrointestinal: Present: soft, non-tender, non-distended, normal bowel sounds Rectal Exam: deferred - Genitourinary Female genitourinary: deferred - Integumentary Integumentary: clear, warm, dry - Musculoskeletal Musculoskeletal: 1, strength equal bilaterally - Psychiatric Psychiatric: appropriate mood/affect - Labs CBC & Chem 7: 11/04/18 05:12 11/02/18 23:42 Labs: Abnormal lab results 11/03/18 11/03/18 11/04/18 Range/Units 20:39 22:14 00:43 MCH (28-32) pg RDW (13.2-15.2) % Lymph % (Auto) (13.4-35.0) % Lymph # (1.2-5.4) K/mm3 Seg Neutrophils % (40.0-70.0) % POC ABG pO2 106 H (80-105) POC Glucose 109 H 116 H (70-105) 11/04/18 11/04/18 Range/Units 05:12 07:57 MCH 26 L (28-32) pg RDW 19.6 H (13.2-15.2) % Lymph % (Auto) 7.9 L (13.4-35.0) % Lymph # 0.7 L (1.2-5.4) K/mm3 Seg Neutrophils % 88.0 H (40.0-70.0) % POC ABG pO2 (80-105) POC Glucose 121 H (70-105) Medications & Allergies - Medications Allergies/Adverse Reactions: Allergies No Known Allergies Allergy (Unverified 09/30/13 14:18) Home Medications: Home Medications Medication Instructions Recorded Confirmed Last Taken Type Glycopyrrolate [Robinul] 1 mg PO BID 07/29/17 11/03/18 Unknown History Ipratropium/Albuterol Sulfate 1 ampul IH Q4HR 07/29/17 11/03/18 Unknown History [DUONEB *Not for PRN Use*] Famotidine [Pepcid] 20 mg PO BID #60 tablet 08/07/17 11/03/18 Unknown Rx Acetaminophen [Acetaminophen 650 mg [place] Q6H PRN 11/03/18 11/03/18 Unknown History SUPPOS] Acetaminophen [Tylenol] 650 mg PO Q4H PRN 11/03/18 11/03/18 Unknown History Aspirin [Aspirin BABY CHEW TAB] 81 mg PO QDAY 11/03/18 11/03/18 Unknown History Baclofen [Lioresal] 10 mg PO BID 11/03/18 11/03/18 Unknown History Bisacodyl [Dulcolax suppos] 10 mg [place] QDAY PRN 11/03/18 11/03/18 Unknown History Cranberry Fruit Concentrate 450 mg PO BID 11/03/18 11/03/18 Unknown History [Cranberry] Glucagon (Human Recomb) [Glucagen] 1 mg IM Q24H PRN 11/03/18 11/03/18 Unknown History HYDROcodone/APAP 7.5-325 [[place] 1 each PO Q8HR PRN 11/03/18 11/03/18 Unknown History 7.5/325] Hyoscyamine Sulfate [Hyoscyamine 0.125 mg PO Q4H PRN 11/03/18 11/03/18 Unknown History Rapdis 0.125 mg] Insulin Glargine [Lantus] 10 unit SUB-Q QHS 11/03/18 11/03/18 Unknown History LORazepam [Ativan] 1 mg PO Q4H PRN 11/03/18 11/03/18 Unknown History Magnesium Hydroxide [Milk of 30 ml PO Q3D 11/03/18 11/03/18 Unknown History Magnesia] Morphine Concentrate [MORPHINE 0.25 ml PO Q4HR PRN 11/03/18 11/03/18 Unknown History Conc 20 MG/ML ORAL LIQ] Promethazine [Phenergan] 25 mg PO Q4H PRN 11/03/18 11/03/18 Unknown History Promethazine [Phenergan] 25 mg PO Q8HR PRN 11/03/18 11/03/18 Unknown History Promethazine [Phenergan] 25 mg [place] Q4H PRN 11/03/18 11/03/18 Unknown History Sennosides Tab [Senokot] 17.2 mg PO BID 11/03/18 11/03/18 Unknown History Active Medications: Generic Name Dose Route Start Last Admin Trade Name Freq PRN Reason Stop Dose Admin Acetaminophen 650 mg 11/03/18 19:43 Tylenol PO Q4H PRN Pain, Mild (1-3) Acetaminophen 650 mg 11/03/18 20:00 Tylenol [place] Q4H PRN Pain, Mild (1-3) Acetaminophen/Hydrocodone Bitart 1 each 11/03/18 19:37 [place] 7.5/325 PO Q4H PRN Pain, Moderate (4-6) Albuterol/Ipratropium 1 ampul 11/03/18 20:00 11/04/18 09:01 Duoneb *Not For Prn Use* IH 1 ampul Q4HRT TIMMY Administration Lipase/Protease/Amylase 1 each 11/04/18 08:09 Pancreaze 10,500 Unit FEEDTUBE PRN PRN For Clogged Feeding Tube Aspirin 81 mg 11/04/18 10:00 Baby Aspirin PO QDAY TIMMY Baclofen 10 mg 11/03/18 22:00 11/03/18 22:24 Lioresal PO 10 mg BID TIMMY Administration Bisacodyl 10 mg 11/03/18 19:18 Dulcolax [place] QDAY PRN Constipation Famotidine 20 mg 11/03/18 22:00 11/03/18 22:24 Pepcid PO 20 mg BID TIMMY Administration Glucagon 1 mg 11/03/18 19:18 Glucagen IM Q24H PRN Hypoglycemia Glycopyrrolate 1 mg 11/03/18 22:00 11/03/18 22:25 Robinul PO 1 mg BID TIMMY Administration Hyoscyamine 0.125 mg 11/03/18 19:49 Levsin Sl SL Q4H PRN EXCESSIVE SECRETION Sodium Chloride 1,000 mls @ 125 mls/hr 11/04/18 06:00 11/04/18 06:58 Nacl 0.9% 1000 Ml IV 125 mls/hr DIRECT TIMMY Administration Insulin Glargine 10 units 11/03/18 22:00 11/03/18 22:24 Lantus SUB-Q 10 units QHS TIMMY Administration Lorazepam 1 mg 11/03/18 19:18 Ativan PO Q4H PRN Anxiety/Agitation Magnesium Hydroxide 30 ml 11/03/18 20:00 11/03/18 22:23 Milk Of Magnesia PO 30 ml Q3D TIMMY Administration Morphine Sulfate 5 mg 11/03/18 20:00 Roxanol Concentrate PO Q4H PRN Pain , Severe (7-10) Pantoprazole Sodium 40 mg 11/03/18 22:00 11/03/18 22:25 Protonix IV 40 mg BID TIMMY Administration Promethazine HCl 25 mg 11/03/18 19:18 Phenergan PO Q4H PRN Nausea And Vomiting Promethazine HCl 25 mg 11/03/18 19:18 Phenergan PO Q8HR PRN Nausea Promethazine HCl 25 mg 11/03/18 19:18 Phenergan [place] Q4H PRN Nausea/ Vomiting Senna 17.2 mg 11/03/18 22:00 11/03/18 22:25 Senokot PO 17.2 mg BID TIMMY Administration Simple Syrup 15 ml 11/04/18 08:09 Simple Syrup FEEDTUBE PRN PRN Hypoglycemia Simple Syrup 30 ml 11/04/18 08:09 Simple Syrup FEEDTUBE PRN PRN Hypoglycemia Sodium Bicarbonate 325 mg 11/04/18 08:09 Sodium Bicarbonate FEEDTUBE PRN PRN For Clogged Feeding Tube
[2018-11-04] MEDS: PEPCID PO SCH (09:59)
[2018-11-04] MEDS: BABY ASPIRIN PO SCH (09:59)
[2018-11-04] MEDS: PROTONIX IV SCH (10:00)
[2018-11-04] MEDS: SENOKOT PO SCH ×3 (10:00→23:23)
[2018-11-04] MEDS: LIORESAL PO SCH ×2 (10:00→23:22)
[2018-11-04] MEDS: ROBINUL PO SCH ×2 (10:15→23:22)
[2018-11-04] MEDS ORDERED: VANCOMYCIN 1,250 MG in NACL 0.9% 250ML 250 ML IV ONE (10:45)
--- NOTE | 2018-11-04 11:25 | Gastroenterology Progress Note ---
<FERNANDO RAINEY - Last Filed: 11/04/18 11:25> Assessment and Plan 1.GI bleed/coffee ground emesis -gastric/stool occult positive -INR 1.09 -LFTs WNL -H/H WNL -continue to monitor H/H and transfuse as needed -no active signs of bleeding overnight or this am per nursing -no plane for scope at this time unless overt bleeding develops (wishes of family for conservative management) -continue PPI BID -okay to resume TFs -continue supportive care -no further recommendations at this time -patient okay to be d/c on PPI per GI standpoint once medically stable per primary team -will sign off, please call if needed Subjective Date of service: 11/04/18 Principal diagnosis: GI bleed Interval history: No active signs of bleeding overnight or this am per nursing. Objective - Constitutional Vitals: Temp Pulse Resp BP Pulse Ox 98.4 F 101 H 18 129/84 99 11/04/18 07:51 11/04/18 06:36 11/04/18 07:51 11/04/18 07:51 11/04/18 06:36 General appearance: no acute distress, other (nonverbal) - EENT ENT: other (+trach) - Respiratory Respiratory: bilateral: diminished - Cardiovascular Rhythm: other (tachycardia) - Gastrointestinal General gastrointestinal: Present: soft, non-distended, normal bowel sounds, other (+PEG) - Labs CBC & Chem 7: 11/04/18 05:12 11/02/18 23:42 Labs: Laboratory Results - last 24 hr 11/03/18 11/03/18 11/03/18 11:31 12:41 18:36 WBC RBC Hgb Hct MCV MCH MCHC RDW Plt Count Lymph % (Auto) [place] % (Auto) Eos % (Auto) Baso % (Auto) Lymph # [place] # Eos # Baso # Seg Neutrophils % Seg Neutrophils # POC ABG pH POC ABG pCO2 POC ABG pO2 POC ABG HCO3 POC ABG Total CO2 POC ABG O2 Sat POC ABG Base Excess FiO2 POC Glucose 98 101 Lactic Acid 1.10 11/03/18 11/03/18 11/04/18 20:39 22:14 00:43 WBC RBC Hgb Hct MCV MCH MCHC RDW Plt Count Lymph % (Auto) [place] % (Auto) Eos % (Auto) Baso % (Auto) Lymph # [place] # Eos # Baso # Seg Neutrophils % Seg Neutrophils # POC ABG pH 7.417 POC ABG pCO2 43.4 POC ABG pO2 106 H POC ABG HCO3 27.9 POC ABG Total CO2 29 POC ABG O2 Sat 98 POC ABG Base Excess 3 FiO2 28 POC Glucose 109 H 116 H Lactic Acid 11/04/18 11/04/18 11/04/18 05:12 06:42 07:57 WBC 8.4 RBC 4.11 Hgb 10.7 Hct 32.6 MCV 79 MCH 26 L MCHC 33 RDW 19.6 H Plt Count 312 Lymph % (Auto) 7.9 L [place] % (Auto) 3.9 Eos % (Auto) 0.0 Baso % (Auto) 0.2 Lymph # 0.7 L [place] # 0.3 Eos # 0.0 Baso # 0.0 Seg Neutrophils % 88.0 H Seg Neutrophils # 7.4 POC ABG pH POC ABG pCO2 POC ABG pO2 POC ABG HCO3 POC ABG Total CO2 POC ABG O2 Sat POC ABG Base Excess FiO2 POC Glucose 95 121 H Lactic Acid <PIA VAIL - Last Filed: 11/04/18 23:09> Subjective Interval history: Patient seen and examined. I agree with the advanced practitioner's assessment and plan with the following additions: no active bleeding, will sign off, please call back if we can be of service Objective - Constitutional Vitals: Temp Pulse Resp BP Pulse Ox 97.9 F 128 H 18 92/48 100 11/04/18 19:17 11/04/18 21:15 11/04/18 21:15 11/04/18 19:17 11/04/18 21:03 - Labs CBC & Chem 7: 11/04/18 05:12 11/02/18 23:42 Labs: Laboratory Results - last 24 hr 11/04/18 11/04/18 11/04/18 00:43 05:12 06:42 WBC 8.4 RBC 4.11 Hgb 10.7 Hct 32.6 MCV 79 MCH 26 L MCHC 33 RDW 19.6 H Plt Count 312 Lymph % (Auto) 7.9 L [place] % (Auto) 3.9 Eos % (Auto) 0.0 Baso % (Auto) 0.2 Lymph # 0.7 L [place] # 0.3 Eos # 0.0 Baso # 0.0 Seg Neutrophils % 88.0 H Seg Neutrophils # 7.4 POC Glucose 116 H 95 11/04/18 11/04/18 11/04/18 07:57 11:46 17:14 WBC RBC Hgb Hct MCV MCH MCHC RDW Plt Count Lymph % (Auto) [place] % (Auto) Eos % (Auto) Baso % (Auto) Lymph # [place] # Eos # Baso # Seg Neutrophils % Seg Neutrophils # POC Glucose 121 H 113 H 110 H
[2018-11-04] MEDS: PREVACID SOLUTAB FEEDTUBE SCH (23:22)
[2018-11-04] MEDS: LANTUS SUB-Q SCH (23:22)
[2018-11-05] MEDS: DUONEB *Not for PRN Use IH SCH ×5 (00:56→20:39)
[2018-11-05 06:24] LABS: BUN/Creatinine Ratio 33; Blood Urea Nitrogen 26 mg/dL (7-17); Calcium 8.5 mg/dL (8.4-10.2); Hemolysis Index 3
[2018-11-05] MEDS ORDERED: SODIUM BICARBONATE FEEDTUBE PRN (09:29)
[2018-11-05] MEDS ORDERED: PANCREAZE DR 10,500 UNIT FEEDTUBE PRN (09:29)
[2018-11-05] MEDS ORDERED: SIMPLE SYRUP FEEDTUBE PRN ×2 (09:29)
[2018-11-05] MEDS: BABY ASPIRIN PO SCH (09:39)
[2018-11-05] MEDS: PREVACID SOLUTAB FEEDTUBE SCH ×2 (09:40→22:16)
[2018-11-05] MEDS: SENOKOT PO SCH ×2 (09:40→22:16)
[2018-11-05] MEDS: ROBINUL PO SCH ×2 (09:40→22:17)
[2018-11-05] MEDS: LIORESAL PO SCH ×2 (09:40→22:16)
[2018-11-05] MEDS: VANCOMYCIN/NS 1 GM/250 ML 1 GM/250 ML BAG IV SCH (09:41)
[2018-11-05] MEDS ORDERED: PROVENTIL IH PRN ×2 (11:00)
[2018-11-05] MEDS: NACL 0.9% 1000 ML 1,000 ML IV SCH ×2 (13:02→22:15)
--- NOTE | 2018-11-05 19:04 | Progress Note ---
Assessment and Plan - Patient Problems (1) GI bleed Current Visit: Yes Status: Acute Plan to address problem: GI consult. (2) Dehydration Current Visit: No Status: Acute Plan to address problem: Hydration. (3) UTI (urinary tract infection) Current Visit: Yes Status: Acute Plan to address problem: IV ABX. (4) UTI (urinary tract infection) Current Visit: No Status: Chronic Plan to address problem: IV ABX. Subjective Date of service: 11/05/18 Principal diagnosis: GI bleed Interval history: Patient seen/examined, resting in bed, labs/cultures reviewed, sputum with Gram positive cocci, stool / treachial asp tested positive for blood. GI on the case. Will add vanco to ABX. Patient seen/examined, resting in bed, labs reviewed, tracheal asp culture growing strange org, and will consult ID. Objective - Constitutional Vitals: Vital Signs - 12hr 11/05/18 11/05/18 11/05/18 07:35 08:20 08:21 Temperature 98.4 F Pulse Rate 65 Pulse Rate [ 87 Anterior Bilateral] Respiratory 16 Rate Respiratory 18 Rate [Anterior Bilateral] Blood Pressure 83/48 O2 Sat by Pulse 100 Oximetry O2 Sat by Pulse 100 Oximetry [ Assessment] 11/05/18 11/05/18 11/05/18 08:31 09:44 09:49 Temperature Pulse Rate Pulse Rate [ 89 Anterior Bilateral] Respiratory Rate Respiratory 18 Rate [Anterior Bilateral] Blood Pressure O2 Sat by Pulse 100 100 Oximetry O2 Sat by Pulse Oximetry [ Assessment] 11/05/18 11/05/18 11/05/18 10:00 14:35 14:45 Temperature Pulse Rate 65 Pulse Rate [ 89 92 H Anterior Bilateral] Respiratory 20 Rate Respiratory 18 18 Rate [Anterior Bilateral] Blood Pressure O2 Sat by Pulse Oximetry O2 Sat by Pulse Oximetry [ Assessment] 11/05/18 11/05/18 16:01 16:05 Temperature 98.3 F Pulse Rate 84 Pulse Rate [ Anterior Bilateral] Respiratory 18 Rate Respiratory Rate [Anterior Bilateral] Blood Pressure 84/39 O2 Sat by Pulse 100 Oximetry O2 Sat by Pulse 100 Oximetry [ Assessment] General appearance: Present: mild distress, cachectic - EENT Eyes: PERRL, EOM intact ENT: hearing intact, clear oral mucosa Ears: bilateral: normal - Neck Neck: supple, normal ROM - Respiratory Respiratory: bilateral: diminished - Breasts Breasts: deferred - Cardiovascular Rhythm: regular Heart Sounds: Present: S1 & S2. Absent: gallop, rub Extremities: pulses intact, No edema, normal color, Full ROM - Gastrointestinal General gastrointestinal: Present: soft, non-tender, non-distended, normal bowel sounds Rectal Exam: deferred - Genitourinary Female genitourinary: deferred - Integumentary Integumentary: clear, warm, dry - Musculoskeletal Musculoskeletal: 1, strength equal bilaterally - Labs CBC & Chem 7: 11/04/18 05:12 11/05/18 05:44 Labs: Abnormal lab results 11/05/18 11/05/18 11/05/18 Range/Units 05:44 07:43 16:09 Sodium 155 H D (137-145) mmol/L Potassium 3.5 L (3.6-5.0) mmol/L Chloride 118.0 H (98-107) mmol/L BUN 26 H (7-17) mg/dL POC Glucose 111 H 117 H (70-105) Medications & Allergies - Medications Allergies/Adverse Reactions: Allergies No Known Allergies Allergy (Unverified 09/30/13 14:18) Home Medications: Home Medications Medication Instructions Recorded Confirmed Last Taken Type Glycopyrrolate [Robinul] 1 mg PO BID 07/29/17 11/03/18 Unknown History Ipratropium/Albuterol Sulfate 1 ampul IH Q4HR 07/29/17 11/03/18 Unknown History [DUONEB *Not for PRN Use*] Famotidine [Pepcid] 20 mg PO BID #60 tablet 08/07/17 11/03/18 Unknown Rx Acetaminophen [Acetaminophen 650 mg MI Q6H PRN 11/03/18 11/03/18 Unknown History SUPPOS] Acetaminophen [Tylenol] 650 mg PO Q4H PRN 11/03/18 11/03/18 Unknown History Aspirin [Aspirin BABY CHEW TAB] 81 mg PO QDAY 11/03/18 11/03/18 Unknown History Baclofen [Lioresal] 10 mg PO BID 11/03/18 11/03/18 Unknown History Bisacodyl [Dulcolax suppos] 10 mg MI QDAY PRN 11/03/18 11/03/18 Unknown History Cranberry Fruit Concentrate 450 mg PO BID 11/03/18 11/03/18 Unknown History [Cranberry] Glucagon (Human Recomb) [Glucagen] 1 mg IM Q24H PRN 11/03/18 11/03/18 Unknown History HYDROcodone/APAP 7.5-325 [[place] 1 each PO Q8HR PRN 11/03/18 11/03/18 Unknown History 7.5/325] Hyoscyamine Sulfate [Hyoscyamine 0.125 mg PO Q4H PRN 11/03/18 11/03/18 Unknown History Rapdis 0.125 mg] Insulin Glargine [Lantus] 10 unit SUB-Q QHS 11/03/18 11/03/18 Unknown History LORazepam [Ativan] 1 mg PO Q4H PRN 11/03/18 11/03/18 Unknown History Magnesium Hydroxide [Milk of 30 ml PO Q3D 11/03/18 11/03/18 Unknown History Magnesia] Morphine Concentrate [MORPHINE 0.25 ml PO Q4HR PRN 11/03/18 11/03/18 Unknown History Conc 20 MG/ML ORAL LIQ] Promethazine [Phenergan] 25 mg PO Q4H PRN 11/03/18 11/03/18 Unknown History Promethazine [Phenergan] 25 mg PO Q8HR PRN 11/03/18 11/03/18 Unknown History Promethazine [Phenergan] 25 mg MI Q4H PRN 11/03/18 11/03/18 Unknown History Sennosides Tab [Senokot] 17.2 mg PO BID 11/03/18 11/03/18 Unknown History Active Medications: Generic Name Dose Route Start Last Admin Trade Name Freq PRN Reason Stop Dose Admin Acetaminophen 650 mg 11/03/18 19:43 Tylenol PO Q4H PRN Pain, Mild (1-3) Acetaminophen 650 mg 11/03/18 20:00 Tylenol MI Q4H PRN Pain, Mild (1-3) Acetaminophen/Hydrocodone Bitart 1 each 11/03/18 19:37 [place] 7.5/325 PO Q4H PRN Pain, Moderate (4-6) Albuterol 2.5 mg 11/05/18 11:00 Proventil IH Q3HRT PRN Shortness Of Breath Albuterol/Ipratropium 1 ampul 11/05/18 14:00 11/05/18 14:35 Duoneb *Not For Prn Use* IH 1 ampul TIDRT TIMMY Administration Lipase/Protease/Amylase 1 each 11/04/18 08:09 Pancreannabella Mccray 10,500 Unit FEEDTUBE PRN PRN For Clogged Feeding Tube Aspirin 81 mg 11/04/18 10:00 11/05/18 09:39 Baby Aspirin PO 81 mg QDAY TIMMY Administration Baclofen 10 mg 11/03/18 22:00 11/05/18 09:40 Lioresal PO 10 mg BID TIMMY Administration Bisacodyl 10 mg 11/03/18 19:18 Dulcolax MI QDAY PRN Constipation Glucagon 1 mg 11/03/18 19:18 Glucagen IM Q24H PRN Hypoglycemia Glycopyrrolate 1 mg 11/03/18 22:00 11/05/18 09:40 Robinul PO 1 mg BID TIMMY Administration Hyoscyamine 0.125 mg 11/03/18 19:49 Levsin Sl SL Q4H PRN EXCESSIVE SECRETION Sodium Chloride 1,000 mls @ 125 mls/hr 11/04/18 06:00 11/05/18 13:02 Nacl 0.9% 1000 Ml IV 125 mls/hr DIRECT TIMMY Administration Vancomycin HCl 1 gm in 250 mls @ 166.667 mls/hr 11/05/18 10:00 11/05/18 09:41 Vancomycin/Ns 1 Gm/250 Ml IV 166.667 mls/hr Q24HR TIMMY Administration Protocol Insulin Glargine 10 units 11/03/18 22:00 11/04/18 23:22 Lantus SUB-Q 10 units QHS TIMMY Administration Lansoprazole 30 mg 11/04/18 22:00 11/05/18 09:40 Prevacid Solutab FEEDTUBE 30 mg BID TIMMY Administration Lorazepam 1 mg 11/03/18 19:18 Ativan PO Q4H PRN Anxiety/Agitation Magnesium Hydroxide 30 ml 11/03/18 20:00 11/03/18 22:23 Milk Of Magnesia PO 30 ml Q3D TIMMY Administration Morphine Sulfate 5 mg 11/03/18 20:00 Roxanol Concentrate PO Q4H PRN Pain , Severe (7-10) Potassium Chloride 40 meq 11/05/18 18:55 K-Dur PO 06/21/19 18:56 ONCE ONE Promethazine HCl 25 mg 11/03/18 19:18 Phenergan PO Q8HR PRN Nausea Promethazine HCl 25 mg 11/03/18 19:18 Phenergan MI Q4H PRN Nausea/ Vomiting Senna 17.2 mg 11/03/18 22:00 11/05/18 09:40 Senokot PO 17.2 mg BID TIMMY Administration Simple Syrup 15 ml 11/04/18 08:09 Simple Syrup FEEDTUBE PRN PRN Hypoglycemia Simple Syrup 30 ml 11/04/18 08:09 Simple Syrup FEEDTUBE PRN PRN Hypoglycemia Sodium Bicarbonate 325 mg 11/04/18 08:09 Sodium Bicarbonate FEEDTUBE PRN PRN For Clogged Feeding Tube
[2018-11-05] MEDS ORDERED: K-DUR PO ONE (20:00)
[2018-11-05] MEDS: LANTUS SUB-Q SCH (22:16)
[2018-11-06] MEDS: DUONEB *Not for PRN Use IH SCH ×3 (08:40→21:18)
[2018-11-06] MEDS: ROBINUL PO SCH ×2 (10:26→23:08)
[2018-11-06] MEDS: PREVACID SOLUTAB FEEDTUBE SCH ×2 (10:55→23:08)
[2018-11-06] MEDS: BABY ASPIRIN PO SCH (10:55)
[2018-11-06] MEDS: SENOKOT PO SCH ×2 (10:55→23:08)
[2018-11-06] MEDS: LIORESAL PO SCH ×2 (10:55→23:08)
[2018-11-06] MEDS: VANCOMYCIN/NS 1 GM/250 ML 1 GM/250 ML BAG IV SCH (10:57)
[2018-11-06] MEDS: NACL 0.9% 1000 ML 1,000 ML IV SCH (12:23)
--- NOTE | 2018-11-06 15:28 | Progress Note ---
Assessment and Plan - Patient Problems (1) GI bleed Current Visit: Yes Status: Acute Plan to address problem: GI consult. (2) Dehydration Current Visit: No Status: Acute Plan to address problem: Hydration. (3) UTI (urinary tract infection) Current Visit: Yes Status: Acute Plan to address problem: IV ABX. (4) UTI (urinary tract infection) Current Visit: No Status: Chronic Plan to address problem: IV ABX. Subjective Date of service: 11/06/18 Principal diagnosis: GI bleed Interval history: Patient seen/examined, resting in bed, labs/cultures reviewed, sputum with Gram positive cocci, stool / treachial asp tested positive for blood. GI on the case. Will add vanco to ABX. Patient seen/examined, resting in bed, labs reviewed, tracheal asp culture growing strange org, and will consult ID. Patient seen/examined, resting in bed, still awaiting ID rec ,so as to decide on disposition. Objective - Constitutional Vitals: Vital Signs - 12hr 11/06/18 11/06/18 11/06/18 04:00 04:16 07:30 Temperature 98.7 F Pulse Rate 81 Pulse Rate [ Anterior Bilateral] Respiratory 17 18 Rate Respiratory Rate [Anterior Bilateral] Blood Pressure 122/54 [Right] O2 Sat by Pulse 100 98 Oximetry O2 Sat by Pulse 100 Oximetry [ Assessment] 11/06/18 11/06/18 11/06/18 08:38 08:44 08:46 Temperature Pulse Rate Pulse Rate [ 88 82 Anterior Bilateral] Respiratory Rate Respiratory 18 18 Rate [Anterior Bilateral] Blood Pressure [Right] O2 Sat by Pulse Oximetry O2 Sat by Pulse 100 Oximetry [ Assessment] 11/06/18 11/06/18 11/06/18 08:47 13:35 13:42 Temperature Pulse Rate Pulse Rate [ 83 88 Anterior Bilateral] Respiratory Rate Respiratory 18 16 Rate [Anterior Bilateral] Blood Pressure [Right] O2 Sat by Pulse 100 Oximetry O2 Sat by Pulse Oximetry [ Assessment] General appearance: Present: no acute distress, well-nourished - EENT Eyes: PERRL, EOM intact ENT: hearing intact, clear oral mucosa Ears: bilateral: normal - Neck Neck: supple, normal ROM - Respiratory Respiratory effort: normal Respiratory: bilateral: CTA - Breasts Breasts: deferred - Cardiovascular Rhythm: regular Heart Sounds: Present: S1 & S2. Absent: gallop, rub Extremities: pulses intact, No edema, normal color, Full ROM - Gastrointestinal General gastrointestinal: Present: soft, non-tender, non-distended, normal bowel sounds Rectal Exam: deferred - Genitourinary Female genitourinary: deferred - Integumentary Integumentary: clear, warm, dry - Musculoskeletal Musculoskeletal: 1, strength equal bilaterally - Labs CBC & Chem 7: 11/04/18 05:12 11/05/18 05:44 Labs: Abnormal lab results 11/05/18 11/05/18 Range/Units 16:09 20:37 POC Glucose 117 H 139 H (70-105) Medications & Allergies - Medications Allergies/Adverse Reactions: Allergies No Known Allergies Allergy (Unverified 09/30/13 14:18) Home Medications: Home Medications Medication Instructions Recorded Confirmed Last Taken Type Glycopyrrolate [Robinul] 1 mg PO BID 07/29/17 11/03/18 Unknown History Ipratropium/Albuterol Sulfate 1 ampul IH Q4HR 07/29/17 11/03/18 Unknown History [DUONEB *Not for PRN Use*] Famotidine [Pepcid] 20 mg PO BID #60 tablet 08/07/17 11/03/18 Unknown Rx Acetaminophen [Acetaminophen 650 mg TN Q6H PRN 11/03/18 11/03/18 Unknown History SUPPOS] Acetaminophen [Tylenol] 650 mg PO Q4H PRN 11/03/18 11/03/18 Unknown History Aspirin [Aspirin BABY CHEW TAB] 81 mg PO QDAY 11/03/18 11/03/18 Unknown History Baclofen [Lioresal] 10 mg PO BID 11/03/18 11/03/18 Unknown History Bisacodyl [Dulcolax suppos] 10 mg TN QDAY PRN 11/03/18 11/03/18 Unknown History Cranberry Fruit Concentrate 450 mg PO BID 11/03/18 11/03/18 Unknown History [Cranberry] Glucagon (Human Recomb) [Glucagen] 1 mg IM Q24H PRN 11/03/18 11/03/18 Unknown History HYDROcodone/APAP 7.5-325 [[place] 1 each PO Q8HR PRN 11/03/18 11/03/18 Unknown History 7.5/325] Hyoscyamine Sulfate [Hyoscyamine 0.125 mg PO Q4H PRN 11/03/18 11/03/18 Unknown History Rapdis 0.125 mg] Insulin Glargine [Lantus] 10 unit SUB-Q QHS 11/03/18 11/03/18 Unknown History LORazepam [Ativan] 1 mg PO Q4H PRN 11/03/18 11/03/18 Unknown History Magnesium Hydroxide [Milk of 30 ml PO Q3D 11/03/18 11/03/18 Unknown History Magnesia] Morphine Concentrate [MORPHINE 0.25 ml PO Q4HR PRN 11/03/18 11/03/18 Unknown History Conc 20 MG/ML ORAL LIQ] Promethazine [Phenergan] 25 mg PO Q4H PRN 11/03/18 11/03/18 Unknown History Promethazine [Phenergan] 25 mg PO Q8HR PRN 11/03/18 11/03/18 Unknown History Promethazine [Phenergan] 25 mg TN Q4H PRN 11/03/18 11/03/18 Unknown History Sennosides Tab [Senokot] 17.2 mg PO BID 11/03/18 11/03/18 Unknown History Active Medications: Generic Name Dose Route Start Last Admin Trade Name Freq PRN Reason Stop Dose Admin Acetaminophen 650 mg 11/03/18 19:43 Tylenol PO Q4H PRN Pain, Mild (1-3) Acetaminophen 650 mg 11/03/18 20:00 Tylenol TN Q4H PRN Pain, Mild (1-3) Acetaminophen/Hydrocodone Bitart 1 each 11/03/18 19:37 [place] 7.5/325 PO Q4H PRN Pain, Moderate (4-6) Albuterol 2.5 mg 11/05/18 11:00 Proventil IH Q3HRT PRN Shortness Of Breath Albuterol/Ipratropium 1 ampul 11/05/18 14:00 11/06/18 13:38 Duoneb *Not For Prn Use* IH 1 ampul TIDRT TIMMY Administration Lipase/Protease/Amylase 1 each 11/04/18 08:09 Pancreannabella Mccray 10,500 Unit FEEDTUBE PRN PRN For Clogged Feeding Tube Aspirin 81 mg 11/04/18 10:00 11/06/18 10:55 Baby Aspirin PO 81 mg QDAY TIMMY Administration Baclofen 10 mg 11/03/18 22:00 11/06/18 10:55 Lioresal PO 10 mg BID TIMMY Administration Bisacodyl 10 mg 11/03/18 19:18 Dulcolax TN QDAY PRN Constipation Glucagon 1 mg 11/03/18 19:18 Glucagen IM Q24H PRN Hypoglycemia Glycopyrrolate 1 mg 11/03/18 22:00 11/06/18 10:26 Robinul PO 1 mg BID TIMMY Administration Hyoscyamine 0.125 mg 11/03/18 19:49 Levsin Sl SL Q4H PRN EXCESSIVE SECRETION Sodium Chloride 1,000 mls @ 125 mls/hr 11/04/18 06:00 11/06/18 12:23 Nacl 0.9% 1000 Ml IV 125 mls/hr DIRECT TIMMY Administration Vancomycin HCl 1 gm in 250 mls @ 166.667 mls/hr 11/05/18 10:00 11/06/18 10:57 Vancomycin/Ns 1 Gm/250 Ml IV 166.667 mls/hr Q24HR TIMMY Administration Protocol Insulin Glargine 10 units 11/03/18 22:00 11/05/18 22:16 Lantus SUB-Q 10 units QHS TIMMY Administration Lansoprazole 30 mg 11/04/18 22:00 11/06/18 10:55 Prevacid Solutab FEEDTUBE 30 mg BID TIMMY Administration Lorazepam 1 mg 11/03/18 19:18 Ativan PO Q4H PRN Anxiety/Agitation Magnesium Hydroxide 30 ml 11/03/18 20:00 11/03/18 22:23 Milk Of Magnesia PO 30 ml Q3D TIMMY Administration Morphine Sulfate 5 mg 11/03/18 20:00 Roxanol Concentrate PO Q4H PRN Pain , Severe (7-10) Promethazine HCl 25 mg 11/03/18 19:18 Phenergan PO Q8HR PRN Nausea Promethazine HCl 25 mg 11/03/18 19:18 Phenergan TN Q4H PRN Nausea/ Vomiting Senna 17.2 mg 11/03/18 22:00 11/06/18 10:55 Senokot PO 17.2 mg BID TIMMY Administration Simple Syrup 15 ml 11/04/18 08:09 Simple Syrup FEEDTUBE PRN PRN Hypoglycemia Simple Syrup 30 ml 11/04/18 08:09 Simple Syrup FEEDTUBE PRN PRN Hypoglycemia Sodium Bicarbonate 325 mg 11/04/18 08:09 Sodium Bicarbonate FEEDTUBE PRN PRN For Clogged Feeding Tube
--- NOTE | 2018-11-06 18:06 | Consultation ---
History of Present Illness - Reason for Consult Consult date: 11/06/18 Polymicrobial trach culture Requesting physician: NANDA WADDELL - History of Present Illness The patient is a 73-year-old female with anoxic brain injury, custodial resident, chronic respiratory failure status post tracheostomy and PEG tube, previous history of cardiac arrest was brought in to the emergency room from the custodial due to vomiting, tachypnea and low grade fevers. Patient unable to provide history. History obtained by chart review. Also with coffee-ground emesis for which GI was consulted. Due to concerns for sepsis, patient was started empirically on Zosyn and vancomycin. Infectious diseases was consulted for antibiotic recommendations. At the time of my evaluation, she just spike a fever of 101F. With gurgling from trach and with tachypnea. Appears to be in respiratory distress. Review of Systems: Unable to obtain due to mental status. Past History Past Medical History: anemia, stroke, other (as per HPI) Past Surgical History: hysterectomy, mastectomy, Other (trach/PEG) Social history: other (Lives at the [facility] Medications and Allergies Allergies Allergy/AdvReac Type Severity Reaction Status Date / Time No Known Allergies Allergy Unverified 09/30/13 14:18 Home Medications Medication Instructions Recorded Confirmed Last Taken Type Glycopyrrolate [Robinul] 1 mg PO BID 07/29/17 11/03/18 Unknown History Ipratropium/Albuterol Sulfate 1 ampul IH Q4HR 07/29/17 11/03/18 Unknown History [DUONEB *Not for PRN Use*] Famotidine [Pepcid] 20 mg PO BID #60 tablet 08/07/17 11/03/18 Unknown Rx Acetaminophen [Acetaminophen 650 mg HI Q6H PRN 11/03/18 11/03/18 Unknown History SUPPOS] Acetaminophen [Tylenol] 650 mg PO Q4H PRN 11/03/18 11/03/18 Unknown History Aspirin [Aspirin BABY CHEW TAB] 81 mg PO QDAY 11/03/18 11/03/18 Unknown History Baclofen [Lioresal] 10 mg PO BID 11/03/18 11/03/18 Unknown History Bisacodyl [Dulcolax suppos] 10 mg HI QDAY PRN 11/03/18 11/03/18 Unknown History Cranberry Fruit Concentrate 450 mg PO BID 11/03/18 11/03/18 Unknown History [Cranberry] Glucagon (Human Recomb) [Glucagen] 1 mg IM Q24H PRN 11/03/18 11/03/18 Unknown History HYDROcodone/APAP 7.5-325 [[place] 1 each PO Q8HR PRN 11/03/18 11/03/18 Unknown History 7.5/325] Hyoscyamine Sulfate [Hyoscyamine 0.125 mg PO Q4H PRN 11/03/18 11/03/18 Unknown History Rapdis 0.125 mg] Insulin Glargine [Lantus] 10 unit SUB-Q QHS 11/03/18 11/03/18 Unknown History LORazepam [Ativan] 1 mg PO Q4H PRN 11/03/18 11/03/18 Unknown History Magnesium Hydroxide [Milk of 30 ml PO Q3D 11/03/18 11/03/18 Unknown History Magnesia] Morphine Concentrate [MORPHINE 0.25 ml PO Q4HR PRN 11/03/18 11/03/18 Unknown History Conc 20 MG/ML ORAL LIQ] Promethazine [Phenergan] 25 mg PO Q4H PRN 11/03/18 11/03/18 Unknown History Promethazine [Phenergan] 25 mg PO Q8HR PRN 11/03/18 11/03/18 Unknown History Promethazine [Phenergan] 25 mg HI Q4H PRN 11/03/18 11/03/18 Unknown History Sennosides Tab [Senokot] 17.2 mg PO BID 11/03/18 11/03/18 Unknown History Active Meds: Active Medications Acetaminophen (Tylenol) 650 mg PO Q4H PRN PRN Reason: Pain, Mild (1-3) Last Admin: 11/06/18 17:44 Dose: 650 mg Documented by: Acetaminophen (Tylenol) 650 mg HI Q4H PRN PRN Reason: Pain, Mild (1-3) Acetaminophen/Hydrocodone Bitart ([place] 7.5/325) 1 each PO Q4H PRN PRN Reason: Pain, Moderate (4-6) Albuterol (Proventil) 2.5 mg IH Q3HRT PRN PRN Reason: Shortness Of Breath Albuterol/Ipratropium (Duoneb *Not For Prn Use*) 1 ampul IH TIDRT [facility] Last Admin: 11/06/18 13:38 Dose: 1 ampul Documented by: Lipase/Protease/Amylase (Jarad Mccray 10,500 Unit) 1 each FEEDTUBE PRN PRN PRN Reason: For Clogged Feeding Tube Aspirin (Baby Aspirin) 81 mg PO QDAY [facility] Last Admin: 11/06/18 10:55 Dose: 81 mg Documented by: Baclofen (Lioresal) 10 mg PO BID [facility] Last Admin: 11/06/18 10:55 Dose: 10 mg Documented by: Bisacodyl (Dulcolax) 10 mg HI QDAY PRN PRN Reason: Constipation Glucagon (Glucagen) 1 mg IM Q24H PRN PRN Reason: Hypoglycemia Glycopyrrolate (Robinul) 1 mg PO BID [facility] Last Admin: 11/06/18 10:26 Dose: 1 mg Documented by: Hyoscyamine (Levsin Sl) 0.125 mg SL Q4H PRN PRN Reason: EXCESSIVE SECRETION Sodium Chloride (Nacl 0.9% 1000 Ml) 1,000 mls @ 125 mls/hr IV DIRECT [facility] Last Admin: 11/06/18 12:23 Dose: 125 mls/hr Documented by: Vancomycin HCl (Vancomycin/Ns 1 Gm/250 Ml) 1 gm in 250 mls @ 166.667 mls/hr IV Q24HR [facility]; Protocol Last Admin: 11/06/18 10:57 Dose: 166.667 mls/hr Documented by: Insulin Glargine (Lantus) 10 units SUB-Q QHS [facility] Last Admin: 11/05/18 22:16 Dose: 10 units Documented by: Lansoprazole (Prevacid Solutab) 30 mg FEEDTUBE BID [facility] Last Admin: 11/06/18 10:55 Dose: 30 mg Documented by: Lorazepam (Ativan) 1 mg PO Q4H PRN PRN Reason: Anxiety/Agitation Magnesium Hydroxide (Milk Of Magnesia) 30 ml PO Q3D [facility] Last Admin: 11/03/18 22:23 Dose: 30 ml Documented by: Morphine Sulfate (Roxanol Concentrate) 5 mg PO Q4H PRN PRN Reason: Pain , Severe (7-10) Promethazine HCl (Phenergan) 25 mg PO Q8HR PRN PRN Reason: Nausea Promethazine HCl (Phenergan) 25 mg HI Q4H PRN PRN Reason: Nausea/ Vomiting Senna (Senokot) 17.2 mg PO BID TIMMY Last Admin: 11/06/18 10:55 Dose: 17.2 mg Documented by: Simple Syrup (Simple Syrup) 15 ml FEEDTUBE PRN PRN PRN Reason: Hypoglycemia Simple Syrup (Simple Syrup) 30 ml FEEDTUBE PRN PRN PRN Reason: Hypoglycemia Sodium Bicarbonate (Sodium Bicarbonate) 325 mg FEEDTUBE PRN PRN PRN Reason: For Clogged Feeding Tube Physical Examination - Physical Exam Narrative exam: Physical Exam: Constitutional: non verbal. respiratory distress + Head, Ears, Nose: Normocephalic, atraumatic. External ears, nose normal Eyes: Conjunctivae/corneas clear. No icterus. No ptosis. Neck: trach + with gurgling Oral: unable to examine Cardiovascular: S1, S2 normal. Respiratory: Good air entry, clear to auscultation bilaterally GI: Soft, non-tender; bowel sounds normal. No peritoneal signs. PEG + Musculoskeletal: No pedal edema, no cyanosis. Skin: Superficial buttock wounds present along with a sacral decubitus ulcer Hem/Lymphatic: No palpable cervical or supraclavicular nodes. No lymphangitis Psych: no agitation Neurological: non verbal, non communicative - Constitutional Vitals: Vital Signs Temp Pulse Resp BP Pulse Ox 98.5 F 88 16 102/53 96 11/06/18 12:40 11/06/18 13:42 11/06/18 13:42 11/06/18 12:40 11/06/18 16:52 Temperature -Last 24 Hours Temperature 98.5 F Temperature 97.5 F Temperature 98.7 F Temperature 98.7 F Temperature 97.8 F Temperature 98.3 F Temperature 96 F Results - Labs CBC & Chem 7: 11/04/18 05:12 11/05/18 05:44 Labs: Abnormal lab results 11/05/18 11/06/18 Range/Units 20:37 17:31 POC Glucose 139 H 120 H (70-105) - Imaging and Cardiology Chest x-ray: report reviewed, image reviewed (Chest x-ray shows tracheostomy tube in place, no evidence of pneumonia) Assessment and Plan Cultures: 11/02/2018 blood culture: Positive rods in 1 out of 4 bottles 11/02/2018 tracheal aspirate: Proteus, Dilciancia 11/03/2018 urine culture: Mixed glen A/P: 73-year-old female with anoxic brain injury, custodial resident, chronic respiratory failure status post tracheostomy and PEG tube, previous history of cardiac arrest 1) Positive respiratory culture and now with respiratory distress: Initial CXR without pneumonia but now with resp distress and fever at the time of my eval. Repeat CXR. Likely aspiration. Treat with IV Cefepime and Flagyl empirically. 2) Concern for UTI: Patient with indwelling Garcia catheter. Unable to assess further symptomatic or not given her baseline mental status. Recommend garcia exchange. 3) Chronic encephalopathy: also likely worse from hypernatremia. 4) Sacral decubitus: recommend wound care. 5) GPR Bacteremia: likely contaminant. 1/4 bottles positive. Recs: agree with repeat CXR started IV Cefepime and Flagyl Vancomycin discontinued. 1/4 blood culture bottles with GPR is likely contaminant Exchange Garcia catheter (discussed with RN) wound care to sacral decubitus discuss goals of care. overall poor prognosis. MD Melissa [facility] C: [phone] O: [phone] F: [phone]
[2018-11-06] MEDS ORDERED: NACL 0.9% 500 ML IV ONE (19:00)
--- NOTE | 2018-11-06 19:18 | XRay Report ---
PROCEDURE: XR CHEST 1V AP TECHNIQUE: Chest radiograph single view. HISTORY: wheezes diaphoretic COMPARISONS: CXR 11/02/2018 . FINDINGS: Heart: Normal. Mediastinum/Vessels: Aorta is unfolded, stable. Lungs/Pleural space: Normal. Bony thorax: No acute osseous abnormality. Surgical clips in the right axilla are again noted Life support devices: Tracheostomy tube is unchanged. IMPRESSION: No acute cardiopulmonary abnormality. This document is electronically signed by Agnes Sterling MD., November 06 2018 07:15:44 PM ET
[2018-11-06] MEDS: MILK OF MAGNESIA PO SCH (23:08)
[2018-11-06] MEDS: LANTUS SUB-Q SCH (23:09)
[2018-11-06] MEDS: FLAGYL 500 MG/100 ML 500 MG/100 ML BAG IV SCH (23:10)
[2018-11-06] MEDS: MAXIPIME/NS 1 GM/100 ML 1 GM/100 ML BAG IV SCH (23:10)
[2018-11-07] MEDS: MAXIPIME/NS 1 GM/100 ML 1 GM/100 ML BAG IV SCH ×3 (06:30→22:50)
[2018-11-07] MEDS: FLAGYL 500 MG/100 ML 500 MG/100 ML BAG IV SCH ×3 (06:31→22:50)
[2018-11-07] MEDS: DUONEB *Not for PRN Use IH SCH ×3 (08:46→21:16)
[2018-11-07] MEDS: ROBINUL PO SCH ×2 (10:58→22:50)
[2018-11-07] MEDS: BABY ASPIRIN PO SCH (10:58)
[2018-11-07] MEDS: LIORESAL PO SCH ×2 (10:58→22:50)
[2018-11-07] MEDS: PREVACID SOLUTAB FEEDTUBE SCH ×2 (10:58→22:50)
[2018-11-07] MEDS: NACL 0.9% 1000 ML 1,000 ML IV SCH ×2 (10:59→23:14)
[2018-11-07] MEDS: SENOKOT PO SCH ×2 (10:59→22:50)
--- NOTE | 2018-11-07 11:34 | Progress Note ---
Assessment and Plan Cultures: 11/02/2018 blood culture: Positive rods in 1 out of 4 bottles 11/02/2018 tracheal aspirate: Dilcia Mckinleyamandaia 11/03/2018 urine culture: Mixed glen 11/06/2018 blood culture: in progress A/P: 73-year-old female with anoxic brain injury, [facility] resident, chronic respiratory failure status post tracheostomy and PEG tube, previous history of cardiac arrest 1) Positive respiratory culture and now with respiratory distress: Initial CXR without pneumonia but now with resp distress and fever at the time of my eval. Repeat CXR. Likely aspiration. Treat with IV Cefepime and Flagyl empirically. Repeat CXR without consolidation. 2) Concern for UTI: Patient with indwelling Blackman catheter. Unable to assess further symptomatic or not given her baseline mental status. Blackman exchanged 11/06/18. 3) Chronic encephalopathy: also likely worse from hypernatremia. 4) Sacral decubitus: recommend wound care. 5) GPR Bacteremia: likely contaminant. 1/4 bottles positive. Recs: continue IV Cefepime and Flagyl wound care to sacral decubitus overall poor prognosis Contact isolation for Arlen Sher NP [facility] M: [phone] O:[phone] Subjective Date of service: 11/07/18 Principal diagnosis: GI bleed Interval history: Patient seen and examined. Non verbal. Does not follow commands. +trach.. No fevers. Objective - Exam Narrative Exam: Constitutional: non verbal. Awake. no acute distress observed. Head, Ears, Nose: Normocephalic, atraumatic. External ears, nose normal Eyes: Conjunctivae/corneas clear. No icterus. No ptosis. Neck: trach - aspirate thick/ cloudy/ yellow Oral: unable to examine Cardiovascular: S1, S2 normal. Respiratory: Good air entry, + Rhonci GI: Soft, non-tender; bowel sounds normal. No peritoneal signs. PEG + Musculoskeletal: No pedal edema, no cyanosis. Skin: Superficial buttock wounds present along with a sacral decubitus ulcer Hem/Lymphatic: No palpable cervical or supraclavicular nodes. No lymphangitis Psych: no agitation Neurological: non verbal, non communicative - Constitutional Vitals: Vital Signs Temp Pulse Resp BP Pulse Ox 98.7 F 95 H 16 96/54 100 11/07/18 09:57 11/07/18 09:57 11/07/18 09:57 11/07/18 09:57 11/07/18 09:57 Temperature -Last 24 Hours Temperature 98.7 F Temperature 97.4 F Temperature 99.4 F Temperature 99.4 F Temperature 96.1 F Temperature 98.5 F - Labs CBC & Chem 7: 11/04/18 05:12 11/05/18 05:44 Labs: Abnormal lab results 11/06/18 11/07/18 Range/Units 17:31 03:55 POC Glucose 120 H 118 H (70-105)
--- NOTE | 2018-11-07 15:47 | Progress Note ---
Assessment and Plan - Patient Problems (1) GI bleed Current Visit: Yes Status: Acute Plan to address problem: GI consult. resolved. (2) Dehydration Current Visit: No Status: Acute Plan to address problem: Hydration. (3) UTI (urinary tract infection) Current Visit: Yes Status: Acute Plan to address problem: IV ABX. Follow ID rec. (4) UTI (urinary tract infection) Current Visit: No Status: Chronic Plan to address problem: IV ABX. see above. (5) Sepsis Current Visit: Yes Status: Acute Qualifiers: Sepsis type: sepsis due to unspecified organism Qualified Code(s): A41.9 - Sepsis, unspecified organism Plan to address problem: Due to strange org in the tracheal asp Follow current IV ABX, as per ID, and put patient on contact Isolation.as recommended by ID. Subjective Date of service: 11/07/18 Principal diagnosis: GI bleed Interval history: Patient seen/examined, resting in bed, labs/cultures reviewed, sputum with Gram positive cocci, stool / treachial asp tested positive for blood. GI on the case. Will add vanco to ABX. Patient seen/examined, resting in bed, labs reviewed, tracheal asp culture growing strange org, and will consult ID. Patient seen/examined, resting in bed, still awaiting ID rec ,so as to decide on disposition. Patient seen/examined, resting in bed, consult notes, labs, reviewed, and highly appreciated. Discharge will be as per their recommendations, when appropriate. Objective - Constitutional Vitals: Vital Signs - 12hr 11/07/18 11/07/18 11/07/18 03:45 05:09 08:44 Temperature 97.4 F L Pulse Rate 79 Pulse Rate [ 80 Anterior Bilateral] Respiratory 16 Rate Respiratory 16 Rate [Anterior Bilateral] Blood Pressure 112/57 O2 Sat by Pulse 100 Oximetry O2 Sat by Pulse 100 Oximetry [ Assessment] 11/07/18 11/07/18 11/07/18 08:49 08:50 08:54 Temperature Pulse Rate Pulse Rate [ 90 Anterior Bilateral] Respiratory Rate Respiratory 16 Rate [Anterior Bilateral] Blood Pressure O2 Sat by Pulse 100 Oximetry O2 Sat by Pulse 100 Oximetry [ Assessment] 11/07/18 11/07/18 11/07/18 09:57 10:00 15:05 Temperature 98.7 F Pulse Rate 95 H 78 Pulse Rate [ 95 H Anterior Bilateral] Respiratory 16 18 Rate Respiratory 16 Rate [Anterior Bilateral] Blood Pressure 96/54 O2 Sat by Pulse 100 98 Oximetry O2 Sat by Pulse Oximetry [ Assessment] 11/07/18 11/07/18 15:10 15:16 Temperature Pulse Rate Pulse Rate [ 84 Anterior Bilateral] Respiratory Rate Respiratory 18 Rate [Anterior Bilateral] Blood Pressure O2 Sat by Pulse Oximetry O2 Sat by Pulse 100 Oximetry [ Assessment] General appearance: Present: mild distress, cachectic - EENT Eyes: PERRL, EOM intact ENT: hearing intact, clear oral mucosa Ears: bilateral: normal - Neck Neck: supple, normal ROM - Respiratory Respiratory: bilateral: rhonchi - Breasts Breasts: deferred - Cardiovascular Rhythm: regular Heart Sounds: Present: S1 & S2. Absent: gallop, rub Extremities: pulses intact, No edema, normal color, Full ROM - Gastrointestinal General gastrointestinal: Present: soft, non-tender, non-distended, normal bowel sounds Rectal Exam: deferred - Genitourinary Female genitourinary: deferred - Integumentary Integumentary: clear, warm, dry - Labs CBC & Chem 7: 11/04/18 05:12 11/05/18 05:44 Labs: Abnormal lab results 11/06/18 11/07/18 Range/Units 17:31 03:55 POC Glucose 120 H 118 H (70-105) Medications & Allergies - Medications Allergies/Adverse Reactions: Allergies No Known Allergies Allergy (Unverified 09/30/13 14:18) Home Medications: Home Medications Medication Instructions Recorded Confirmed Last Taken Type Glycopyrrolate [Robinul] 1 mg PO BID 07/29/17 11/03/18 Unknown History Ipratropium/Albuterol Sulfate 1 ampul IH Q4HR 07/29/17 11/03/18 Unknown History [DUONEB *Not for PRN Use*] Famotidine [Pepcid] 20 mg PO BID #60 tablet 08/07/17 11/03/18 Unknown Rx Acetaminophen [Acetaminophen 650 mg DE Q6H PRN 11/03/18 11/03/18 Unknown History SUPPOS] Acetaminophen [Tylenol] 650 mg PO Q4H PRN 11/03/18 11/03/18 Unknown History Aspirin [Aspirin BABY CHEW TAB] 81 mg PO QDAY 11/03/18 11/03/18 Unknown History Baclofen [Lioresal] 10 mg PO BID 11/03/18 11/03/18 Unknown History Bisacodyl [Dulcolax suppos] 10 mg DE QDAY PRN 11/03/18 11/03/18 Unknown History Cranberry Fruit Concentrate 450 mg PO BID 11/03/18 11/03/18 Unknown History [Cranberry] Glucagon (Human Recomb) [Glucagen] 1 mg IM Q24H PRN 11/03/18 11/03/18 Unknown History HYDROcodone/APAP 7.5-325 [[place] 1 each PO Q8HR PRN 11/03/18 11/03/18 Unknown History 7.5/325] Hyoscyamine Sulfate [Hyoscyamine 0.125 mg PO Q4H PRN 11/03/18 11/03/18 Unknown History Rapdis 0.125 mg] Insulin Glargine [Lantus] 10 unit SUB-Q QHS 11/03/18 11/03/18 Unknown History LORazepam [Ativan] 1 mg PO Q4H PRN 11/03/18 11/03/18 Unknown History Magnesium Hydroxide [Milk of 30 ml PO Q3D 11/03/18 11/03/18 Unknown History Magnesia] Morphine Concentrate [MORPHINE 0.25 ml PO Q4HR PRN 11/03/18 11/03/18 Unknown History Conc 20 MG/ML ORAL LIQ] Promethazine [Phenergan] 25 mg PO Q4H PRN 11/03/18 11/03/18 Unknown History Promethazine [Phenergan] 25 mg PO Q8HR PRN 11/03/18 11/03/18 Unknown History Promethazine [Phenergan] 25 mg DE Q4H PRN 11/03/18 11/03/18 Unknown History Sennosides Tab [Senokot] 17.2 mg PO BID 11/03/18 11/03/18 Unknown History Active Medications: Generic Name Dose Route Start Last Admin Trade Name Freq PRN Reason Stop Dose Admin Acetaminophen 650 mg 11/03/18 19:43 11/06/18 17:44 Tylenol PO 650 mg Q4H PRN Administration Pain, Mild (1-3) Acetaminophen 650 mg 11/03/18 20:00 Tylenol DE Q4H PRN Pain, Mild (1-3) Acetaminophen/Hydrocodone Bitart 1 each 11/03/18 19:37 [place] 7.5/325 PO Q4H PRN Pain, Moderate (4-6) Albuterol 2.5 mg 11/05/18 11:00 Proventil IH Q3HRT PRN Shortness Of Breath Albuterol/Ipratropium 1 ampul 11/05/18 14:00 11/07/18 15:08 Duoneb *Not For Prn Use* IH 1 ampul TIDRT TIMMY Administration Lipase/Protease/Amylase 1 each 11/04/18 08:09 Pancreazdomingo Mccray 10,500 Unit FEEDTUBE PRN PRN For Clogged Feeding Tube Aspirin 81 mg 11/04/18 10:00 11/07/18 10:58 Baby Aspirin PO 81 mg QDAY TIMMY Administration Baclofen 10 mg 11/03/18 22:00 11/07/18 10:58 Lioresal PO 10 mg BID TIMMY Administration Bisacodyl 10 mg 11/03/18 19:18 Dulcolax DE QDAY PRN Constipation Glucagon 1 mg 11/03/18 19:18 Glucagen IM Q24H PRN Hypoglycemia Glycopyrrolate 1 mg 11/03/18 22:00 11/07/18 10:58 Robinul PO 1 mg BID TIMMY Administration Hyoscyamine 0.125 mg 11/03/18 19:49 Levsin Sl SL Q4H PRN EXCESSIVE SECRETION Sodium Chloride 1,000 mls @ 125 mls/hr 11/04/18 06:00 11/07/18 10:59 Nacl 0.9% 1000 Ml IV 125 mls/hr DIRECT TIMMY Administration Cefepime HCl 1 gm in 100 mls @ 200 mls/hr 11/06/18 22:00 11/07/18 14:34 Maxipime/Ns 1 Gm/100 Ml IV 200 mls/hr Q8HR TIMMY Administration Protocol Metronidazole 500 mg in 100 mls @ 100 mls/hr 11/06/18 22:00 11/07/18 14:34 Flagyl 500 Mg/100 Ml IV 100 mls/hr Q8HR TIMMY Administration Protocol Insulin Glargine 10 units 11/03/18 22:00 11/06/18 23:09 Lantus SUB-Q Not Given QHS TIMMY Lansoprazole 30 mg 11/04/18 22:00 11/07/18 10:58 Prevacid Solutab FEEDTUBE 30 mg BID TIMMY Administration Lorazepam 1 mg 11/03/18 19:18 Ativan PO Q4H PRN Anxiety/Agitation Magnesium Hydroxide 30 ml 11/03/18 20:00 11/06/18 23:08 Milk Of Magnesia PO 30 ml Q3D TIMMY Administration Morphine Sulfate 5 mg 11/03/18 20:00 Roxanol Concentrate PO Q4H PRN Pain , Severe (7-10) Promethazine HCl 25 mg 11/03/18 19:18 Phenergan PO Q8HR PRN Nausea Promethazine HCl 25 mg 11/03/18 19:18 Phenergan DE Q4H PRN Nausea/ Vomiting Senna 17.2 mg 11/03/18 22:00 11/07/18 10:59 Senokot PO 17.2 mg BID TIMMY Administration Simple Syrup 15 ml 11/04/18 08:09 Simple Syrup FEEDTUBE PRN PRN Hypoglycemia Simple Syrup 30 ml 11/04/18 08:09 Simple Syrup FEEDTUBE PRN PRN Hypoglycemia Sodium Bicarbonate 325 mg 11/04/18 08:09 Sodium Bicarbonate FEEDTUBE PRN PRN For Clogged Feeding Tube
[2018-11-07] MEDS: LANTUS SUB-Q SCH (22:50)
[2018-11-08] MEDS: FLAGYL 500 MG/100 ML 500 MG/100 ML BAG IV SCH ×3 (06:00→23:04)
[2018-11-08] MEDS: MAXIPIME/NS 1 GM/100 ML 1 GM/100 ML BAG IV SCH ×3 (06:00→23:04)
[2018-11-08 08:18] LABS: Basophils % (Auto) 0.4 % (0.0-1.8); Eosinophils # (Auto) 0.2 K/mm3 (0.0-0.4); Eosinophils % (Auto) 3.8 % (0.0-4.3); Hematocrit 28.9 % (30.3-42.9); Hemoglobin 9.4 gm/dl (10.1-14.3); Lymphocytes # (Auto) 1.8 K/mm3 (1.2-5.4); Lymphocytes % (Auto) 28.3 % (13.4-35.0); Mean Corpuscular HGB Conc 32 % (30-34); Mean Corpuscular Volume 80 fl (79-97); Monocytes # (Auto) 0.5 K/mm3 (0.0-0.8); Monocytes % (Auto) 8.1 % (0.0-7.3); Platelet Count 216 K/mm3 (140-440); Red Blood Count 3.63 M/mm3 (3.65-5.03); Red Cell Distribution Width 19.3 % (13.2-15.2)
[2018-11-08 08:42] LABS: BUN/Creatinine Ratio 23; Blood Urea Nitrogen 14 mg/dL (7-17); Calcium 8.1 mg/dL (8.4-10.2); Hemolysis Index 4
[2018-11-08] MEDS: DUONEB *Not for PRN Use IH SCH ×3 (08:44→20:42)
--- NOTE | 2018-11-08 11:25 | Progress Note ---
Assessment and Plan Cultures: 11/02/2018 blood culture: Positive rods in 1 out of 4 bottles 11/02/2018 tracheal aspirate: Proteus, MDR-Providencia 11/03/2018 urine culture: Mixed glen A/P: 73-year-old female with anoxic brain injury, [facility] resident, chronic respiratory failure status post tracheostomy and PEG tube, previous history of cardiac arrest 1) Positive respiratory culture and now with respiratory distress: Initial CXR without pneumonia but now with resp distress and fever. Repeat CXR no consolidation. Likely aspiration. On IV Cefepime and Flagyl empirically. 2) UTI: Patient with indwelling Blackman catheter. Unable to assess further symptomatic or not given her baseline mental status. Blackman exchanged per NS report. 3) Chronic encephalopathy: also likely worse from hypernatremia. 4) Sacral decubitus: ? herpes (multiple perianal round wounds) and sacral dec recommend wound care. 5) GPR Bacteremia: likely contaminant. 1/4 bottles positive. Recs: continue IV Cefepime and Flagyl D3 HSV-2 serology wound care to sacral decubitus discuss goals of care contact isolation due to MDR Providencia Poor prognosis will follow Rosalva Mcfadden MD Infectious Diseases [employer] [facility] M [phone] O [phone] Subjective Date of service: 11/08/18 Principal diagnosis: GI bleed Interval history: Remains non verbal on T-piece @ 28%. No fever. ROS unable to obtain. Objective - Exam Narrative Exam: General: somnolent non verbal in NAD Head, Ears, Nose: Normocephalic, atraumatic. External ears, nose normal Eyes: Conjunctivae/corneas clear. No icterus. No ptosis. Neck: trach + zarate secretions Oral: unable to examine Cardiovascular: RRR Respiratory: CTA charan GI: Soft, non-tender; bowel sounds normal. +PEG Musculoskeletal: left foot ulcer small no infected Skin: Multiple round Superficial buttock wounds present along with a sacral decubitus ulcer Neurological: non verbal, contracted extremities - Constitutional Vitals: Vital Signs Temp Pulse Resp BP Pulse Ox 97.7 F 75 16 96/52 100 11/08/18 08:52 11/08/18 08:57 11/08/18 08:57 11/08/18 08:52 11/08/18 08:52 Temperature -Last 24 Hours Temperature 97.7 F Temperature 98.5 F Temperature 98.1 F Temperature 97.8 F Temperature 98.0 F - Labs CBC & Chem 7: 11/08/18 07:44 11/08/18 07:44 Labs: Abnormal lab results 11/07/18 11/08/18 11/08/18 Range/Units 15:44 00:54 07:10 RBC (3.65-5.03) M/mm3 Hgb (10.1-14.3) gm/dl Hct (30.3-42.9) % MCH (28-32) pg RDW (13.2-15.2) % [place] % (Auto) (0.0-7.3) % Chloride (98-107) mmol/L Creatinine (0.7-1.2) mg/dL Glucose (65-100) mg/dL POC Glucose 108 H 122 H 109 H (70-105) Calcium (8.4-10.2) mg/dL 11/08/18 11/08/18 Range/Units 07:44 07:44 RBC 3.63 L (3.65-5.03) M/mm3 Hgb 9.4 L (10.1-14.3) gm/dl Hct 28.9 L (30.3-42.9) % MCH 26 L (28-32) pg RDW 19.3 H (13.2-15.2) % [place] % (Auto) 8.1 H (0.0-7.3) % Chloride 110.6 H (98-107) mmol/L Creatinine 0.6 L (0.7-1.2) mg/dL Glucose 104 H (65-100) mg/dL POC Glucose (70-105) Calcium 8.1 L (8.4-10.2) mg/dL
[2018-11-08] MEDS: NACL 0.9% 1000 ML 1,000 ML IV SCH (12:22)
[2018-11-08] MEDS: LIORESAL PO SCH ×2 (12:23→23:04)
[2018-11-08] MEDS: SENOKOT PO SCH ×2 (12:23→23:03)
[2018-11-08] MEDS: BABY ASPIRIN PO SCH (12:23)
[2018-11-08] MEDS: PREVACID SOLUTAB FEEDTUBE SCH ×2 (15:11→23:05)
[2018-11-08] MEDS: ROBINUL PO SCH ×2 (15:11→23:04)
--- NOTE | 2018-11-08 20:46 | Progress Note ---
Assessment and Plan - Patient Problems (1) GI bleed Current Visit: Yes Status: Acute Plan to address problem: GI consult. resolved. (2) Dehydration Current Visit: No Status: Acute Plan to address problem: Hydration. (3) UTI (urinary tract infection) Current Visit: Yes Status: Acute Plan to address problem: IV ABX. Follow ID rec. (4) UTI (urinary tract infection) Current Visit: No Status: Chronic Plan to address problem: IV ABX. see above. (5) Sepsis Current Visit: Yes Status: Acute Qualifiers: Sepsis type: sepsis due to unspecified organism Qualified Code(s): A41.9 - Sepsis, unspecified organism Plan to address problem: Due to strange org in the tracheal asp Follow current IV ABX, as per ID, and put patient on contact Isolation.as recommended by ID. Subjective Date of service: 11/08/18 Principal diagnosis: GI bleed Interval history: Patient seen/examined, resting in bed, labs/cultures reviewed, sputum with Gram positive cocci, stool / treachial asp tested positive for blood. GI on the case. Will add vanco to ABX. Patient seen/examined, resting in bed, labs reviewed, tracheal asp culture growing strange org, and will consult ID. Patient seen/examined, resting in bed, still awaiting ID rec ,so as to decide on disposition. Patient seen/examined, resting in bed, consult notes, labs, reviewed, and highly appreciated. Discharge will be as per their recommendations, when appropriate. Patient seen/examined, resting in bed, labs/notes reviewed, clinically , same. Will continue to follow ID rec as per disposition. Objective - Constitutional Vitals: Vital Signs - 12hr 11/08/18 11/08/18 11/08/18 08:49 08:52 08:57 Temperature 97.7 F Pulse Rate 74 Pulse Rate [ 75 Anterior Bilateral] Respiratory 16 Rate Respiratory 16 Rate [Anterior Bilateral] Blood Pressure 96/52 O2 Sat by Pulse 100 100 Oximetry O2 Sat by Pulse Oximetry [ Assessment] 11/08/18 11/08/18 11/08/18 14:27 14:54 15:05 Temperature Pulse Rate Pulse Rate [ 66 78 Anterior Bilateral] Respiratory Rate Respiratory 16 16 Rate [Anterior Bilateral] Blood Pressure O2 Sat by Pulse Oximetry O2 Sat by Pulse 100 Oximetry [ Assessment] General appearance: Present: no acute distress, cachectic - EENT Eyes: PERRL, EOM intact ENT: hearing intact, clear oral mucosa Ears: bilateral: normal - Neck Neck: supple, normal ROM - Respiratory Respiratory: bilateral: diminished - Breasts Breasts: deferred - Cardiovascular Rhythm: regular Heart Sounds: Present: S1 & S2. Absent: gallop, rub Extremities: pulses intact, No edema, normal color, Full ROM - Gastrointestinal General gastrointestinal: Present: soft, non-tender, non-distended, normal bowel sounds Rectal Exam: deferred - Genitourinary Female genitourinary: deferred - Integumentary Integumentary: clear, warm, dry - Musculoskeletal Musculoskeletal: 1, strength equal bilaterally - Neurologic Neurologic: moves all extremities - Labs CBC & Chem 7: 11/08/18 07:44 11/08/18 07:44 Labs: Abnormal lab results 11/08/18 11/08/18 11/08/18 Range/Units 00:54 07:10 07:44 RBC 3.63 L (3.65-5.03) M/mm3 Hgb 9.4 L (10.1-14.3) gm/dl Hct 28.9 L (30.3-42.9) % MCH 26 L (28-32) pg RDW 19.3 H (13.2-15.2) % [place] % (Auto) 8.1 H (0.0-7.3) % Chloride (98-107) mmol/L Creatinine (0.7-1.2) mg/dL Glucose (65-100) mg/dL POC Glucose 122 H 109 H (70-105) Calcium (8.4-10.2) mg/dL 11/08/18 Range/Units 07:44 RBC (3.65-5.03) M/mm3 Hgb (10.1-14.3) gm/dl Hct (30.3-42.9) % MCH (28-32) pg RDW (13.2-15.2) % [place] % (Auto) (0.0-7.3) % Chloride 110.6 H (98-107) mmol/L Creatinine 0.6 L (0.7-1.2) mg/dL Glucose 104 H (65-100) mg/dL POC Glucose (70-105) Calcium 8.1 L (8.4-10.2) mg/dL Medications & Allergies - Medications Allergies/Adverse Reactions: Allergies No Known Allergies Allergy (Unverified 09/30/13 14:18) Home Medications: Home Medications Medication Instructions Recorded Confirmed Last Taken Type Glycopyrrolate [Robinul] 1 mg PO BID 07/29/17 11/03/18 Unknown History Ipratropium/Albuterol Sulfate 1 ampul IH Q4HR 07/29/17 11/03/18 Unknown History [DUONEB *Not for PRN Use*] Famotidine [Pepcid] 20 mg PO BID #60 tablet 08/07/17 11/03/18 Unknown Rx Acetaminophen [Acetaminophen 650 mg IN Q6H PRN 11/03/18 11/03/18 Unknown History SUPPOS] Acetaminophen [Tylenol] 650 mg PO Q4H PRN 11/03/18 11/03/18 Unknown History Aspirin [Aspirin BABY CHEW TAB] 81 mg PO QDAY 11/03/18 11/03/18 Unknown History Baclofen [Lioresal] 10 mg PO BID 11/03/18 11/03/18 Unknown History Bisacodyl [Dulcolax suppos] 10 mg IN QDAY PRN 11/03/18 11/03/18 Unknown History Cranberry Fruit Concentrate 450 mg PO BID 11/03/18 11/03/18 Unknown History [Cranberry] Glucagon (Human Recomb) [Glucagen] 1 mg IM Q24H PRN 11/03/18 11/03/18 Unknown History HYDROcodone/APAP 7.5-325 [[place] 1 each PO Q8HR PRN 11/03/18 11/03/18 Unknown History 7.5/325] Hyoscyamine Sulfate [Hyoscyamine 0.125 mg PO Q4H PRN 11/03/18 11/03/18 Unknown History Rapdis 0.125 mg] Insulin Glargine [Lantus] 10 unit SUB-Q QHS 11/03/18 11/03/18 Unknown History LORazepam [Ativan] 1 mg PO Q4H PRN 11/03/18 11/03/18 Unknown History Magnesium Hydroxide [Milk of 30 ml PO Q3D 11/03/18 11/03/18 Unknown History Magnesia] Morphine Concentrate [MORPHINE 0.25 ml PO Q4HR PRN 11/03/18 11/03/18 Unknown History Conc 20 MG/ML ORAL LIQ] Promethazine [Phenergan] 25 mg PO Q4H PRN 11/03/18 11/03/18 Unknown History Promethazine [Phenergan] 25 mg PO Q8HR PRN 11/03/18 11/03/18 Unknown History Promethazine [Phenergan] 25 mg IN Q4H PRN 11/03/18 11/03/18 Unknown History Sennosides Tab [Senokot] 17.2 mg PO BID 11/03/18 11/03/18 Unknown History Active Medications: Generic Name Dose Route Start Last Admin Trade Name Freq PRN Reason Stop Dose Admin Acetaminophen 650 mg 11/03/18 19:43 11/06/18 17:44 Tylenol PO 650 mg Q4H PRN Administration Pain, Mild (1-3) Acetaminophen 650 mg 11/03/18 20:00 Tylenol IN Q4H PRN Pain, Mild (1-3) Acetaminophen/Hydrocodone Bitart 1 each 11/03/18 19:37 [place] 7.5/325 PO Q4H PRN Pain, Moderate (4-6) Albuterol 2.5 mg 11/05/18 11:00 Proventil IH Q3HRT PRN Shortness Of Breath Albuterol/Ipratropium 1 ampul 11/05/18 14:00 11/08/18 20:42 Duoneb *Not For Prn Use* IH 1 ampul TIDRT TIMMY Administration Lipase/Protease/Amylase 1 each 11/04/18 08:09 Jarad Mccray 10,500 Unit FEEDTUBE PRN PRN For Clogged Feeding Tube Aspirin 81 mg 11/04/18 10:00 11/08/18 12:23 Baby Aspirin PO 81 mg QDAY TIMMY Administration Baclofen 10 mg 11/03/18 22:00 11/08/18 12:23 Lioresal PO 10 mg BID TIMMY Administration Bisacodyl 10 mg 11/03/18 19:18 Dulcolax IN QDAY PRN Constipation Glucagon 1 mg 11/03/18 19:18 Glucagen IM Q24H PRN Hypoglycemia Glycopyrrolate 1 mg 11/03/18 22:00 11/08/18 15:11 Robinul PO 1 mg BID TIMMY Administration Hyoscyamine 0.125 mg 11/03/18 19:49 Levsin Sl SL Q4H PRN EXCESSIVE SECRETION Sodium Chloride 1,000 mls @ 125 mls/hr 11/04/18 06:00 11/08/18 12:22 Nacl 0.9% 1000 Ml IV 125 mls/hr DIRECT TIMMY Administration Cefepime HCl 1 gm in 100 mls @ 200 mls/hr 11/06/18 22:00 11/08/18 15:11 Maxipime/Ns 1 Gm/100 Ml IV 200 mls/hr Q8HR TIMMY Administration Protocol Metronidazole 500 mg in 100 mls @ 100 mls/hr 11/06/18 22:00 11/08/18 15:10 Flagyl 500 Mg/100 Ml IV 100 mls/hr Q8HR TIMMY Administration Protocol Insulin Glargine 10 units 11/03/18 22:00 11/07/18 22:50 Lantus SUB-Q 10 units QHS TIMMY Administration Lansoprazole 30 mg 11/04/18 22:00 11/08/18 15:11 Prevacid Solutab FEEDTUBE 30 mg BID TIMMY Administration Lorazepam 1 mg 11/03/18 19:18 Ativan PO Q4H PRN Anxiety/Agitation Magnesium Hydroxide 30 ml 11/03/18 20:00 11/06/18 23:08 Milk Of Magnesia PO 30 ml Q3D TIMMY Administration Morphine Sulfate 5 mg 11/03/18 20:00 Roxanol Concentrate PO Q4H PRN Pain , Severe (7-10) Promethazine HCl 25 mg 11/03/18 19:18 Phenergan PO Q8HR PRN Nausea Promethazine HCl 25 mg 11/03/18 19:18 Phenergan IN Q4H PRN Nausea/ Vomiting Senna 17.2 mg 11/03/18 22:00 11/08/18 12:23 Senokot PO 17.2 mg BID TIMMY Administration Simple Syrup 15 ml 11/04/18 08:09 Simple Syrup FEEDTUBE PRN PRN Hypoglycemia Simple Syrup 30 ml 11/04/18 08:09 Simple Syrup FEEDTUBE PRN PRN Hypoglycemia Sodium Bicarbonate 325 mg 11/04/18 08:09 Sodium Bicarbonate FEEDTUBE PRN PRN For Clogged Feeding Tube
[2018-11-08] MEDS: LANTUS SUB-Q SCH (23:04)
[2018-11-09] MEDS: LANTUS SUB-Q SCH ×2 (01:40→22:28)
[2018-11-09] MEDS: MAXIPIME/NS 1 GM/100 ML 1 GM/100 ML BAG IV SCH ×3 (05:05→22:27)
[2018-11-09] MEDS: NACL 0.9% 1000 ML 1,000 ML IV SCH ×2 (05:06→22:27)
[2018-11-09] MEDS: FLAGYL 500 MG/100 ML 500 MG/100 ML BAG IV SCH ×3 (06:49→22:27)
[2018-11-09] MEDS: DUONEB *Not for PRN Use IH SCH ×3 (09:02→20:07)
[2018-11-09] MEDS: LIORESAL PO SCH ×2 (10:29→22:28)
[2018-11-09] MEDS: BABY ASPIRIN PO SCH (10:29)
[2018-11-09] MEDS: SENOKOT PO SCH ×2 (10:29→22:28)
[2018-11-09] MEDS: PREVACID SOLUTAB FEEDTUBE SCH ×2 (10:30→22:28)
[2018-11-09] MEDS: ROBINUL PO SCH ×2 (10:31→22:32)
--- NOTE | 2018-11-09 16:33 | Progress Note ---
Assessment and Plan Cultures: 11/02/2018 blood culture: Positive rods in 1 out of 4 bottles 11/02/2018 tracheal aspirate: Proteus, MDR-Providencia 11/03/2018 urine culture: Mixed glen A/P: 73-year-old female with anoxic brain injury, [facility] resident, chronic respiratory failure status post tracheostomy and PEG tube, previous history of cardiac arrest 1) Positive respiratory culture and now with respiratory distress: Initial CXR without pneumonia but now with resp distress and fever. Repeat CXR no consolidation. 11/02/2018 tracheal aspirate: Proteus, MDR-Providencia likely a colonizer. On IV Cefepime and Flagyl empirically. 2) UTI: Patient with indwelling Blackman catheter. Unable to assess further symptomatic or not given her baseline mental status. Blackman exchanged per NS report. 3) Chronic encephalopathy: also likely worse from hypernatremia. 4) Sacral decubitus: ? herpes (multiple perianal round wounds) and sacral dec recommend wound care. 5) GPR Bacteremia: likely contaminant. 1/4 bottles positive. Recs: continue IV Cefepime and Flagyl D4 of 5 HSV-2 serology - sent wound care to sacral decubitus contact isolation due to MDR Providencia will follow Rosalva Mcfadden MD Infectious Diseases [employer] [facility] M [phone] O [phone] Subjective Date of service: 11/09/18 Principal diagnosis: GI bleed Interval history: Remains non verbal on T-piece @ 28%. No fever. ROS unable to obtain. Objective - Exam Narrative Exam: General: non verbal in NAD Head, Ears, Nose: Normocephalic, atraumatic. External ears, nose normal Eyes: Conjunctivae/corneas clear. No icterus. No ptosis. Neck: trach + zarate secretions Oral: unable to examine Cardiovascular: RRR Respiratory: CTA charan GI: Soft, non-tender; bowel sounds normal. +PEG Musculoskeletal: left foot ulcer small no infected Skin: Multiple round Superficial buttock wounds present along with a sacral decubitus ulcer Neurological: non verbal, contracted extremities - Constitutional Vitals: Vital Signs Temp Pulse Resp BP Pulse Ox 99.0 F 77 20 106/47 100 11/09/18 04:58 11/09/18 13:50 11/09/18 13:50 11/09/18 04:58 11/09/18 09:16 Temperature -Last 24 Hours Temperature 99.0 F Temperature 99.1 F Temperature 97.8 F - Labs CBC & Chem 7: 11/08/18 07:44 11/08/18 07:44 Labs: Abnormal lab results 11/08/18 11/09/18 Range/Units 22:00 12:51 POC Glucose 109 H 124 H (70-105)
--- NOTE | 2018-11-09 19:43 | Progress Note ---
Assessment and Plan - Patient Problems (1) GI bleed Current Visit: Yes Status: Resolved Plan to address problem: GI consult. resolved. (2) Dehydration Current Visit: No Status: Acute Plan to address problem: Hydration. (3) UTI (urinary tract infection) Current Visit: Yes Status: Acute Plan to address problem: IV ABX. Follow ID rec. (4) UTI (urinary tract infection) Current Visit: No Status: Chronic Plan to address problem: IV ABX. see above. (5) Sepsis Current Visit: Yes Status: Acute Qualifiers: Sepsis type: sepsis due to unspecified organism Qualified Code(s): A41.9 - Sepsis, unspecified organism Plan to address problem: Due to strange org in the tracheal asp Follow current IV ABX, as per ID, and put patient on contact Isolation.as recommended by ID. Subjective Date of service: 11/09/18 Principal diagnosis: GI bleed Interval history: Patient seen/examined, resting in bed, labs/cultures reviewed, sputum with Gram positive cocci, stool / treachial asp tested positive for blood. GI on the case. Will add vanco to ABX. Patient seen/examined, resting in bed, labs reviewed, tracheal asp culture growing strange org, and will consult ID. Patient seen/examined, resting in bed, still awaiting ID rec ,so as to decide on disposition. Patient seen/examined, resting in bed, consult notes, labs, reviewed, and highly appreciated. Discharge will be as per their recommendations, when appropriate. Patient seen/examined, resting in bed, labs/notes reviewed, clinically , same. Will continue to follow ID rec as per disposition. Patient seen/examined, resting in bed, labs /notes reviewed, continue to follow ID. Objective - Constitutional Vitals: Vital Signs - 12hr 11/09/18 11/09/18 11/09/18 08:27 09:02 09:15 Temperature 98.1 F Pulse Rate 70 Pulse Rate [ 77 78 Anterior Bilateral] Respiratory 18 Rate Respiratory 20 20 Rate [Anterior Bilateral] Blood Pressure 107/47 O2 Sat by Pulse 100 Oximetry O2 Sat by Pulse Oximetry [ Assessment] 11/09/18 11/09/18 11/09/18 09:16 10:00 12:47 Temperature 97.5 F L Pulse Rate 70 66 Pulse Rate [ Anterior Bilateral] Respiratory 18 Rate Respiratory Rate [Anterior Bilateral] Blood Pressure 113/54 O2 Sat by Pulse 100 91 Oximetry O2 Sat by Pulse 100 Oximetry [ Assessment] 11/09/18 11/09/18 11/09/18 13:40 13:50 17:18 Temperature Pulse Rate Pulse Rate [ 75 77 Anterior Bilateral] Respiratory 18 Rate Respiratory 20 20 Rate [Anterior Bilateral] Blood Pressure 144/69 O2 Sat by Pulse Oximetry O2 Sat by Pulse Oximetry [ Assessment] General appearance: Present: mild distress, cachectic - EENT Eyes: PERRL, EOM intact ENT: hearing intact, clear oral mucosa Ears: bilateral: normal - Neck Neck: supple, normal ROM - Respiratory Respiratory: bilateral: diminished - Breasts Breasts: deferred - Cardiovascular Rhythm: regular Heart Sounds: Present: S1 & S2. Absent: gallop, rub Extremities: pulses intact, No edema, normal color, Full ROM - Gastrointestinal General gastrointestinal: Present: soft, non-tender, non-distended, normal bowel sounds Rectal Exam: deferred - Genitourinary Female genitourinary: deferred - Integumentary Integumentary: clear, warm, dry - Musculoskeletal Musculoskeletal: 1, strength equal bilaterally - Neurologic Neurologic: moves all extremities - Labs CBC & Chem 7: 11/08/18 07:44 11/08/18 07:44 Labs: Abnormal lab results 11/08/18 11/09/18 Range/Units 22:00 12:51 POC Glucose 109 H 124 H (70-105) Medications & Allergies - Medications Allergies/Adverse Reactions: Allergies No Known Allergies Allergy (Unverified 09/30/13 14:18) Home Medications: Home Medications Medication Instructions Recorded Confirmed Last Taken Type Glycopyrrolate [Robinul] 1 mg PO BID 07/29/17 11/03/18 Unknown History Ipratropium/Albuterol Sulfate 1 ampul IH Q4HR 07/29/17 11/03/18 Unknown History [DUONEB *Not for PRN Use*] Famotidine [Pepcid] 20 mg PO BID #60 tablet 08/07/17 11/03/18 Unknown Rx Acetaminophen [Acetaminophen 650 mg MO Q6H PRN 11/03/18 11/03/18 Unknown History SUPPOS] Acetaminophen [Tylenol] 650 mg PO Q4H PRN 11/03/18 11/03/18 Unknown History Aspirin [Aspirin BABY CHEW TAB] 81 mg PO QDAY 11/03/18 11/03/18 Unknown History Baclofen [Lioresal] 10 mg PO BID 11/03/18 11/03/18 Unknown History Bisacodyl [Dulcolax suppos] 10 mg MO QDAY PRN 11/03/18 11/03/18 Unknown History Cranberry Fruit Concentrate 450 mg PO BID 11/03/18 11/03/18 Unknown History [Cranberry] Glucagon (Human Recomb) [Glucagen] 1 mg IM Q24H PRN 11/03/18 11/03/18 Unknown History HYDROcodone/APAP 7.5-325 [Granite 1 each PO Q8HR PRN 11/03/18 11/03/18 Unknown History 7.5/325] Hyoscyamine Sulfate [Hyoscyamine 0.125 mg PO Q4H PRN 11/03/18 11/03/18 Unknown History Rapdis 0.125 mg] Insulin Glargine [Lantus] 10 unit SUB-Q QHS 11/03/18 11/03/18 Unknown History LORazepam [Ativan] 1 mg PO Q4H PRN 11/03/18 11/03/18 Unknown History Magnesium Hydroxide [Milk of 30 ml PO Q3D 11/03/18 11/03/18 Unknown History Magnesia] Morphine Concentrate [MORPHINE 0.25 ml PO Q4HR PRN 11/03/18 11/03/18 Unknown History Conc 20 MG/ML ORAL LIQ] Promethazine [Phenergan] 25 mg PO Q4H PRN 11/03/18 11/03/18 Unknown History Promethazine [Phenergan] 25 mg PO Q8HR PRN 11/03/18 11/03/18 Unknown History Promethazine [Phenergan] 25 mg MO Q4H PRN 11/03/18 11/03/18 Unknown History Sennosides Tab [Senokot] 17.2 mg PO BID 11/03/18 11/03/18 Unknown History Active Medications: Generic Name Dose Route Start Last Admin Trade Name Freq PRN Reason Stop Dose Admin Acetaminophen 650 mg 11/03/18 19:43 11/06/18 17:44 Tylenol PO 650 mg Q4H PRN Administration Pain, Mild (1-3) Acetaminophen 650 mg 11/03/18 20:00 Tylenol MO Q4H PRN Pain, Mild (1-3) Acetaminophen/Hydrocodone Bitart 1 each 11/03/18 19:37 Granite 7.5/325 PO Q4H PRN Pain, Moderate (4-6) Albuterol 2.5 mg 11/05/18 11:00 Proventil IH Q3HRT PRN Shortness Of Breath Albuterol/Ipratropium 1 ampul 11/05/18 14:00 11/09/18 13:39 Duoneb *Not For Prn Use* IH 1 ampul TIDRT TIMMY Administration Lipase/Protease/Amylase 1 each 11/04/18 08:09 Pancreaze 10,500 Unit FEEDTUBE PRN PRN For Clogged Feeding Tube Aspirin 81 mg 11/04/18 10:00 11/09/18 10:29 Baby Aspirin PO 81 mg QDAY TIMMY Administration Baclofen 10 mg 11/03/18 22:00 11/09/18 10:29 Lioresal PO 10 mg BID TIMMY Administration Bisacodyl 10 mg 11/03/18 19:18 Dulcolax MO QDAY PRN Constipation Glucagon 1 mg 11/03/18 19:18 Glucagen IM Q24H PRN Hypoglycemia Glycopyrrolate 1 mg 11/03/18 22:00 11/09/18 10:31 Robinul PO 1 mg BID TIMMY Administration Hyoscyamine 0.125 mg 11/03/18 19:49 Levsin Sl SL Q4H PRN EXCESSIVE SECRETION Sodium Chloride 1,000 mls @ 125 mls/hr 11/04/18 06:00 11/09/18 05:06 Nacl 0.9% 1000 Ml IV 125 mls/hr DIRECT TIMMY Administration Cefepime HCl 1 gm in 100 mls @ 200 mls/hr 11/06/18 22:00 11/09/18 14:57 Maxipime/Ns 1 Gm/100 Ml IV 200 mls/hr Q8HR TIMMY Administration Protocol Metronidazole 500 mg in 100 mls @ 100 mls/hr 11/06/18 22:00 11/09/18 14:56 Flagyl 500 Mg/100 Ml IV 100 mls/hr Q8HR TIMMY Administration Protocol Insulin Glargine 10 units 11/03/18 22:00 11/09/18 01:40 Lantus SUB-Q Not Given QHS TIMMY Lansoprazole 30 mg 11/04/18 22:00 11/09/18 10:30 Prevacid Solutab FEEDTUBE 30 mg BID TIMMY Administration Lorazepam 1 mg 11/03/18 19:18 Ativan PO Q4H PRN Anxiety/Agitation Magnesium Hydroxide 30 ml 11/03/18 20:00 11/06/18 23:08 Milk Of Magnesia PO 30 ml Q3D TIMMY Administration Morphine Sulfate 5 mg 11/03/18 20:00 Roxanol Concentrate PO Q4H PRN Pain , Severe (7-10) Promethazine HCl 25 mg 11/03/18 19:18 Phenergan PO Q8HR PRN Nausea Promethazine HCl 25 mg 11/03/18 19:18 Phenergan MO Q4H PRN Nausea/ Vomiting Senna 17.2 mg 11/03/18 22:00 11/09/18 10:29 Senokot PO 17.2 mg BID TIMMY Administration Simple Syrup 15 ml 11/04/18 08:09 Simple Syrup FEEDTUBE PRN PRN Hypoglycemia Simple Syrup 30 ml 11/04/18 08:09 Simple Syrup FEEDTUBE PRN PRN Hypoglycemia Sodium Bicarbonate 325 mg 11/04/18 08:09 Sodium Bicarbonate FEEDTUBE PRN PRN For Clogged Feeding Tube
[2018-11-09] MEDS: MILK OF MAGNESIA PO SCH (22:28)
[2018-11-09] MEDS: NORCO 7.5/325 PO PRN (22:29)
[2018-11-09 22:31] LABS: Free T4 (Free Thyroxine) 1.28 ng/dL (0.76-1.46)
[2018-11-10] MEDS: FLAGYL 500 MG/100 ML 500 MG/100 ML BAG IV SCH ×3 (05:37→21:39)
[2018-11-10] MEDS: MAXIPIME/NS 1 GM/100 ML 1 GM/100 ML BAG IV SCH (05:37)
[2018-11-10] MEDS: DUONEB *Not for PRN Use IH SCH ×3 (08:47→20:36)
[2018-11-10] MEDS: BABY ASPIRIN PO SCH (10:17)
[2018-11-10] MEDS: SENOKOT PO SCH ×2 (10:17→21:38)
[2018-11-10] MEDS: ROBINUL PO SCH ×2 (10:18→21:38)
[2018-11-10] MEDS: LIORESAL PO SCH ×2 (10:18→21:38)
[2018-11-10] MEDS: PREVACID SOLUTAB FEEDTUBE SCH ×2 (10:18→21:39)
--- NOTE | 2018-11-10 10:58 | Progress Note ---
Assessment and Plan Cultures: 11/02/2018 blood culture: Positive rods in 1 out of 4 bottles 11/02/2018 tracheal aspirate: Proteus, MDR-Providencia 11/03/2018 urine culture: Mixed glen A/P: 73-year-old female with anoxic brain injury, assisted resident, chronic respiratory failure status post tracheostomy and PEG tube, previous history of cardiac arrest 1) Positive respiratory culture and now with respiratory distress: Initial CXR without pneumonia but now with resp distress and fever. Repeat CXR no consolidation. 11/02/2018 tracheal aspirate: Proteus, MDR-Providencia likely a colonizer. On IV Cefepime and Flagyl empirically. 2) UTI: Patient with indwelling Blackman catheter. Unable to assess further symptomatic or not given her baseline mental status. Blackman exchanged per NS report. 3) Chronic encephalopathy: also likely worse from hypernatremia. 4) Sacral decubitus: ? herpes (multiple perianal round wounds) and sacral dec recommend wound care. 5) GPR Bacteremia: likely contaminant. 1/4 bottles positive. Recs: stop IV Cefepime and Flagyl D5 of 5 HSV-2 serology - sent start valtrex po 1 gm po bid total 7 days for suspect genital herpes wound care to sacral decubitus contact isolation due to MDR Providencia will follow Rosalva Mcfadden MD Infectious Diseases [employer] [facility] M [phone] O [phone] Subjective Date of service: 11/10/18 Principal diagnosis: GI bleed Interval history: Remains non verbal on T-piece @ 28%. No fever. ROS unable to obtain. Objective - Exam Narrative Exam: General: non verbal in NAD Head, Ears, Nose: Normocephalic, atraumatic. External ears, nose normal Eyes: Conjunctivae/corneas clear. No icterus. No ptosis. Neck: trach + zarate secretions Oral: unable to examine Cardiovascular: RRR Respiratory: CTA charan GI: Soft, non-tender; bowel sounds normal. +PEG Musculoskeletal: left foot ulcer small no infected Skin: Multiple round Superficial buttock wounds present along with a central sacral decubitus ulcer Neurological: non verbal, contracted extremities - Constitutional Vitals: Vital Signs Temp Pulse Resp BP Pulse Ox 98.8 F 78 18 109/41 100 11/10/18 09:08 11/10/18 09:02 11/10/18 09:08 11/10/18 09:08 11/10/18 09:09 Temperature -Last 24 Hours Temperature 98.8 F Temperature 97.6 F Temperature 98.8 F Temperature 98.5 F Temperature 97.5 F - Labs CBC & Chem 7: 11/08/18 07:44 11/08/18 07:44 Labs: Abnormal lab results 11/09/18 11/09/18 11/10/18 Range/Units 12:51 22:30 06:54 POC Glucose 124 H 147 H 138 H (70-105)
[2018-11-10] MEDS: VALTREX PO SCH (15:40)
[2018-11-10] MEDS: LANTUS SUB-Q SCH (21:40)
--- NOTE | 2018-11-10 22:05 | Progress Note ---
Assessment and Plan - Patient Problems (1) GI bleed Current Visit: Yes Status: Resolved Plan to address problem: GI consult. resolved. (2) Dehydration Current Visit: No Status: Acute Plan to address problem: Hydration. (3) UTI (urinary tract infection) Current Visit: Yes Status: Acute Plan to address problem: IV ABX. Follow ID rec. (4) UTI (urinary tract infection) Current Visit: No Status: Chronic Plan to address problem: IV ABX. see above. (5) Sepsis Current Visit: Yes Status: Acute Qualifiers: Sepsis type: sepsis due to unspecified organism Qualified Code(s): A41.9 - Sepsis, unspecified organism Plan to address problem: Due to strange org in the tracheal asp Follow current IV ABX, as per ID, and put patient on contact Isolation.as recommended by ID. Subjective Date of service: 11/10/18 Principal diagnosis: GI bleed Interval history: Patient seen/examined, resting in bed, labs/cultures reviewed, sputum with Gram positive cocci, stool / treachial asp tested positive for blood. GI on the case. Will add vanco to ABX. Patient seen/examined, resting in bed, labs reviewed, tracheal asp culture growing strange org, and will consult ID. Patient seen/examined, resting in bed, still awaiting ID rec ,so as to decide on disposition. Patient seen/examined, resting in bed, consult notes, labs, reviewed, and highly appreciated. Discharge will be as per their recommendations, when appropriate. Patient seen/examined, resting in bed, labs/notes reviewed, clinically , same. Will continue to follow ID rec as per disposition. Patient seen/examined, resting in bed, labs /notes reviewed, continue to follow ID. Patient seen/examined, resting in bed, labs reviewed, as well as notes. No new issues at this time, will continue to follow ID rec. will do new labs for am. Objective - Constitutional Vitals: Vital Signs - 12hr 11/10/18 11/10/18 11/10/18 13:31 15:11 15:23 Temperature 97.5 F L Pulse Rate 75 Pulse Rate [ 80 Anterior Bilateral] Respiratory 18 Rate Respiratory 16 Rate [Anterior Bilateral] Blood Pressure 110/60 O2 Sat by Pulse 98 Oximetry O2 Sat by Pulse 100 Oximetry [ Assessment] 11/10/18 11/10/18 11/10/18 15:24 15:58 20:28 Temperature 98.0 F 98.7 F Pulse Rate 77 Pulse Rate [ 88 Anterior Bilateral] Respiratory 18 16 Rate Respiratory 16 Rate [Anterior Bilateral] Blood Pressure 116/58 98/57 O2 Sat by Pulse 65 L Oximetry O2 Sat by Pulse Oximetry [ Assessment] 11/10/18 11/10/18 11/10/18 20:32 20:37 20:38 Temperature Pulse Rate Pulse Rate [ 63 Anterior Bilateral] Respiratory Rate Respiratory 20 Rate [Anterior Bilateral] Blood Pressure O2 Sat by Pulse 96 99 Oximetry O2 Sat by Pulse Oximetry [ Assessment] 11/10/18 20:45 Temperature Pulse Rate Pulse Rate [ 83 Anterior Bilateral] Respiratory Rate Respiratory 20 Rate [Anterior Bilateral] Blood Pressure O2 Sat by Pulse Oximetry O2 Sat by Pulse Oximetry [ Assessment] General appearance: Present: mild distress, cachectic - EENT Eyes: PERRL, EOM intact ENT: hearing intact, clear oral mucosa Ears: bilateral: normal - Neck Neck: supple, normal ROM - Respiratory Respiratory: bilateral: diminished - Breasts Breasts: deferred - Cardiovascular Rhythm: regular Heart Sounds: Present: S1 & S2. Absent: gallop, rub Extremities: pulses intact, No edema, normal color, Full ROM - Gastrointestinal General gastrointestinal: Present: soft, non-tender, non-distended, normal bowel sounds Rectal Exam: deferred - Genitourinary Female genitourinary: deferred - Integumentary Integumentary: clear, warm, dry - Musculoskeletal Musculoskeletal: 1, strength equal bilaterally - Labs CBC & Chem 7: 11/08/18 07:44 11/08/18 07:44 Labs: Abnormal lab results 11/09/18 11/10/18 11/10/18 Range/Units 22:30 06:54 13:34 POC Glucose 147 H 138 H 118 H (70-105) Medications & Allergies - Medications Allergies/Adverse Reactions: Allergies No Known Allergies Allergy (Unverified 09/30/13 14:18) Home Medications: Home Medications Medication Instructions Recorded Confirmed Last Taken Type Glycopyrrolate [Robinul] 1 mg PO BID 07/29/17 11/03/18 Unknown History Ipratropium/Albuterol Sulfate 1 ampul IH Q4HR 07/29/17 11/03/18 Unknown History [DUONEB *Not for PRN Use*] Famotidine [Pepcid] 20 mg PO BID #60 tablet 08/07/17 11/03/18 Unknown Rx Acetaminophen [Acetaminophen 650 mg NH Q6H PRN 11/03/18 11/03/18 Unknown History SUPPOS] Acetaminophen [Tylenol] 650 mg PO Q4H PRN 11/03/18 11/03/18 Unknown History Aspirin [Aspirin BABY CHEW TAB] 81 mg PO QDAY 11/03/18 11/03/18 Unknown History Baclofen [Lioresal] 10 mg PO BID 11/03/18 11/03/18 Unknown History Bisacodyl [Dulcolax suppos] 10 mg NH QDAY PRN 11/03/18 11/03/18 Unknown History Cranberry Fruit Concentrate 450 mg PO BID 11/03/18 11/03/18 Unknown History [Cranberry] Glucagon (Human Recomb) [Glucagen] 1 mg IM Q24H PRN 11/03/18 11/03/18 Unknown H istory HYDROcodone/APAP 7.5-325 [Hiram 1 each PO Q8HR PRN 11/03/18 11/03/18 Unknown History 7.5/325] Hyoscyamine Sulfate [Hyoscyamine 0.125 mg PO Q4H PRN 11/03/18 11/03/18 Unknown History Rapdis 0.125 mg] Insulin Glargine [Lantus] 10 unit SUB-Q QHS 11/03/18 11/03/18 Unknown History LORazepam [Ativan] 1 mg PO Q4H PRN 11/03/18 11/03/18 Unknown History Magnesium Hydroxide [Milk of 30 ml PO Q3D 11/03/18 11/03/18 Unknown History Magnesia] Morphine Concentrate [MORPHINE 0.25 ml PO Q4HR PRN 11/03/18 11/03/18 Unknown History Conc 20 MG/ML ORAL LIQ] Promethazine [Phenergan] 25 mg PO Q4H PRN 11/03/18 11/03/18 Unknown History Promethazine [Phenergan] 25 mg PO Q8HR PRN 11/03/18 11/03/18 Unknown History Promethazine [Phenergan] 25 mg NH Q4H PRN 11/03/18 11/03/18 Unknown History Sennosides Tab [Senokot] 17.2 mg PO BID 11/03/18 11/03/18 Unknown History Active Medications: Generic Name Dose Route Start Last Admin Trade Name Freq PRN Reason Stop Dose Admin Acetaminophen 650 mg 11/03/18 19:43 11/06/18 17:44 Tylenol PO 650 mg Q4H PRN Administration Pain, Mild (1-3) Acetaminophen 650 mg 11/03/18 20:00 Tylenol NH Q4H PRN Pain, Mild (1-3) Acetaminophen/Hydrocodone Bitart 1 each 11/03/18 19:37 11/09/18 22:29 Hiram 7.5/325 PO 1 each Q4H PRN Administration Pain, Moderate (4-6) Albuterol 2.5 mg 11/05/18 11:00 Proventil IH Q3HRT PRN Shortness Of Breath Albuterol/Ipratropium 1 ampul 11/05/18 14:00 11/10/18 20:36 Duoneb *Not For Prn Use* IH 1 ampul TIDRT TIMMY Administration Lipase/Protease/Amylase 1 each 11/04/18 08:09 Pancreaze 10,500 Unit FEEDTUBE PRN PRN For Clogged Feeding Tube Aspirin 81 mg 11/04/18 10:00 11/10/18 10:17 Baby Aspirin PO 81 mg QDAY TIMMY Administration Baclofen 10 mg 11/03/18 22:00 11/10/18 21:38 Lioresal PO 10 mg BID TIMMY Administration Bisacodyl 10 mg 11/03/18 19:18 Dulcolax NH QDAY PRN Constipation Glucagon 1 mg 11/03/18 19:18 Glucagen IM Q24H PRN Hypoglycemia Glycopyrrolate 1 mg 11/03/18 22:00 11/10/18 21:38 Robinul PO 1 mg BID TIMMY Administration Hyoscyamine 0.125 mg 11/03/18 19:49 Levsin Sl SL Q4H PRN EXCESSIVE SECRETION Sodium Chloride 1,000 mls @ 125 mls/hr 11/04/18 06:00 11/09/18 22:27 Nacl 0.9% 1000 Ml IV 125 mls/hr DIRECT TIMMY Administration Metronidazole 500 mg in 100 mls @ 100 mls/hr 11/06/18 22:00 11/10/18 21:39 Flagyl 500 Mg/100 Ml IV 100 mls/hr Q8HR TIMMY Administration Protocol Insulin Glargine 10 units 11/03/18 22:00 11/10/18 21:40 Lantus SUB-Q 10 units QHS TIMMY Administration Lansoprazole 30 mg 11/04/18 22:00 11/10/18 21:39 Prevacid Solutab FEEDTUBE 30 mg BID TIMMY Administration Lorazepam 1 mg 11/03/18 19:18 Ativan PO Q4H PRN Anxiety/Agitation Magnesium Hydroxide 30 ml 11/03/18 20:00 11/09/18 22:28 Milk Of Magnesia PO 30 ml Q3D TIMMY Administration Morphine Sulfate 5 mg 11/03/18 20:00 Roxanol Concentrate PO Q4H PRN Pain , Severe (7-10) Promethazine HCl 25 mg 11/03/18 19:18 Phenergan PO Q8HR PRN Nausea Promethazine HCl 25 mg 11/03/18 19:18 Phenergan NH Q4H PRN Nausea/ Vomiting Senna 17.2 mg 11/03/18 22:00 11/10/18 21:38 Senokot PO 17.2 mg BID TIMMY Administration Simple Syrup 15 ml 11/04/18 08:09 Simple Syrup FEEDTUBE PRN PRN Hypoglycemia Simple Syrup 30 ml 11/04/18 08:09 Simple Syrup FEEDTUBE PRN PRN Hypoglycemia Sodium Bicarbonate 325 mg 11/04/18 08:09 Sodium Bicarbonate FEEDTUBE PRN PRN For Clogged Feeding Tube Valacyclovir HCl 1,000 mg 11/10/18 11:00 11/10/18 15:40 Valtrex PO 1,000 mg Q12H TIMMY Administration
[2018-11-11] MEDS: VALTREX PO SCH ×3 (00:21→22:15)
[2018-11-11] MEDS: FLAGYL 500 MG/100 ML 500 MG/100 ML BAG IV SCH (05:21)
[2018-11-11] MEDS: DUONEB *Not for PRN Use IH SCH ×3 (07:41→21:09)
[2018-11-11 08:08] LABS: Basophils % (Auto) 0.3 % (0.0-1.8); Eosinophils # (Auto) 0.2 K/mm3 (0.0-0.4); Eosinophils % (Auto) 2.8 % (0.0-4.3); Hematocrit 30.8 % (30.3-42.9); Lymphocytes # (Auto) 1.2 K/mm3 (1.2-5.4); Lymphocytes % (Auto) 19.2 % (13.4-35.0); Mean Corpuscular HGB Conc 32 % (30-34); Mean Corpuscular Volume 80 fl (79-97); Monocytes # (Auto) 0.6 K/mm3 (0.0-0.8); Monocytes % (Auto) 8.7 % (0.0-7.3); Platelet Count 233 K/mm3 (140-440); Red Blood Count 3.88 M/mm3 (3.65-5.03); Red Cell Distribution Width 19.7 % (13.2-15.2)
[2018-11-11 08:30] LABS: BUN/Creatinine Ratio 23; Blood Urea Nitrogen 14 mg/dL (7-17); Calcium 8.2 mg/dL (8.4-10.2); Hemolysis Index 25
[2018-11-11] MEDS: SENOKOT PO SCH ×2 (10:08→22:16)
[2018-11-11] MEDS: ROBINUL PO SCH ×2 (10:09→22:15)
[2018-11-11] MEDS: PREVACID SOLUTAB FEEDTUBE SCH ×2 (10:09→22:16)
[2018-11-11] MEDS: LIORESAL PO SCH ×2 (10:10→22:16)
[2018-11-11] MEDS: BABY ASPIRIN PO SCH (10:10)
--- NOTE | 2018-11-11 10:25 | Progress Note ---
Assessment and Plan Cultures: 11/02/2018 blood culture: Positive rods in 1 out of 4 bottles 11/02/2018 tracheal aspirate: Proteus, MDR-Providencia 11/03/2018 urine culture: Mixed glen A/P: 73-year-old female with anoxic brain injury, detention resident, chronic respiratory failure status post tracheostomy and PEG tube, previous history of cardiac arrest 1) Positive respiratory culture and now with respiratory distress: Initial CXR without pneumonia but now with resp distress and fever. Repeat CXR no consolidation. 11/02/2018 tracheal aspirate: Proteus, MDR-Providencia likely a colonizer. . 2) UTI: Patient with indwelling Blackman catheter. Unable to assess further symptomatic or not given her baseline mental status. Blackman exchanged per NS report. 3) Chronic encephalopathy: also likely worse from hypernatremia. 4) Sacral decubitus: ? herpes (multiple perianal round wounds) and sacral dec recommend wound care. 5) GPR Bacteremia: likely contaminant. 1/4 bottles positive. Recs: HSV-2 serology - sent continue valtrex po 1 gm po bid total 7 days for suspect genital herpes, D2 of D7 wound care to sacral decubitus contact isolation due to MDR Providencia [facility] M: [phone] O:[phone] Subjective Date of service: 11/11/18 Principal diagnosis: GI bleed Interval history: Patient seen and examined. Non verbal. Does not follow commands. +trach.. No fevers. Objective - Exam Narrative Exam: General: Somnolent. Nonverbal. Head, Ears, Nose: Normocephalic, atraumatic. External ears, nose normal Eyes: Conjunctivae/corneas clear. No icterus. No ptosis. Neck: trach + zarate secretions Oral: unable to examine Cardiovascular: RRR Respiratory: CTA charan GI: Soft, non-tender; bowel sounds normal. +PEG Musculoskeletal: left foot ulcer small no infected Skin: Multiple round Superficial buttock wounds present along with a central sacral decubitus ulcer Neurological: non verbal, contracted extremities - Constitutional Vitals: Vital Signs Temp Pulse Resp BP Pulse Ox 99.3 F 72 18 109/60 100 11/11/18 07:53 11/11/18 07:53 11/11/18 07:53 11/11/18 07:53 11/11/18 07:53 Temperature -Last 24 Hours Temperature 99.3 F Temperature 99.1 F Temperature 99.5 F Temperature 98.7 F Temperature 98.0 F Temperature 97.5 F - Labs CBC & Chem 7: 11/11/18 07:26 11/11/18 07:15 Labs: Abnormal lab results 11/10/18 11/11/18 11/11/18 Range/Units 13:34 00:45 05:15 Hgb (10.1-14.3) gm/dl MCH (28-32) pg RDW (13.2-15.2) % Calhoun % (Auto) (0.0-7.3) % Chloride (98-107) mmol/L Creatinine (0.7-1.2) mg/dL Glucose (65-100) mg/dL POC Glucose 118 H 114 H 113 H (70-105) Calcium (8.4-10.2) mg/dL 11/11/18 11/11/18 Range/Units 07:15 07:26 Hgb 10.0 L (10.1-14.3) gm/dl MCH 26 L (28-32) pg RDW 19.7 H (13.2-15.2) % [place]oun % (Auto) 8.7 H (0.0-7.3) % Chloride 107.5 H (98-107) mmol/L Creatinine 0.6 L (0.7-1.2) mg/dL Glucose 105 H (65-100) mg/dL POC Glucose (70-105) Calcium 8.2 L (8.4-10.2) mg/dL
--- NOTE | 2018-11-11 16:38 | Progress Note ---
Assessment and Plan - Patient Problems (1) GI bleed Current Visit: Yes Status: Resolved Plan to address problem: GI consult. resolved. (2) Dehydration Current Visit: No Status: Acute Plan to address problem: Hydration. (3) UTI (urinary tract infection) Current Visit: Yes Status: Acute Plan to address problem: IV ABX. Follow ID rec. (4) UTI (urinary tract infection) Current Visit: No Status: Chronic Plan to address problem: IV ABX. see above. (5) Sepsis Current Visit: Yes Status: Acute Qualifiers: Sepsis type: sepsis due to unspecified organism Qualified Code(s): A41.9 - Sepsis, unspecified organism Plan to address problem: Due to strange org in the tracheal asp Follow current IV ABX, as per ID, and put patient on contact Isolation.as recommended by ID. Subjective Date of service: 11/11/18 Principal diagnosis: GI bleed Interval history: Patient seen/examined, resting in bed, labs/cultures reviewed, sputum with Gram positive cocci, stool / treachial asp tested positive for blood. GI on the case. Will add vanco to ABX. Patient seen/examined, resting in bed, labs reviewed, tracheal asp culture growing strange org, and will consult ID. Patient seen/examined, resting in bed, still awaiting ID rec ,so as to decide on disposition. Patient seen/examined, resting in bed, consult notes, labs, reviewed, and highly appreciated. Discharge will be as per their recommendations, when appropriate. Patient seen/examined, resting in bed, labs/notes reviewed, clinically , same. Will continue to follow ID rec as per disposition. Patient seen/examined, resting in bed, labs /notes reviewed, continue to follow ID. Patient seen/examined, resting in bed, labs reviewed, as well as notes. No new issues at this time, will continue to follow ID rec. will do new labs for am. Patient seen/examined, resting in bed, records/notes reviewed.will continue to follow ID.D/c back to [place] ,when ok with ID. Objective - Constitutional Vitals: Vital Signs - 12hr 11/11/18 11/11/18 11/11/18 05:11 07:46 07:47 Temperature 99.1 F Pulse Rate 82 Pulse Rate [ 84 Anterior Bilateral] Respiratory 20 Rate Respiratory 20 Rate [Anterior Bilateral] Blood Pressure 107/48 O2 Sat by Pulse 100 Oximetry O2 Sat by Pulse 98 Oximetry [ Assessment] 11/11/18 11/11/18 11/11/18 07:50 07:53 10:00 Temperature 99.3 F Pulse Rate 72 87 Pulse Rate [ Anterior Bilateral] Respiratory 18 Rate Respiratory Rate [Anterior Bilateral] Blood Pressure 109/60 O2 Sat by Pulse 96 100 Oximetry O2 Sat by Pulse Oximetry [ Assessment] 11/11/18 11/11/18 11/11/18 11:22 13:56 14:17 Temperature 99.1 F Pulse Rate 83 Pulse Rate [ 86 Anterior Bilateral] Respiratory 18 Rate Respiratory 18 Rate [Anterior Bilateral] Blood Pressure 104/63 O2 Sat by Pulse 100 Oximetry O2 Sat by Pulse 97 Oximetry [ Assessment] 11/11/18 11/11/18 14:21 15:31 Temperature 99.1 F Pulse Rate 76 Pulse Rate [ 84 Anterior Bilateral] Respiratory 18 Rate Respiratory 18 Rate [Anterior Bilateral] Blood Pressure 109/60 O2 Sat by Pulse 100 Oximetry O2 Sat by Pulse Oximetry [ Assessment] General appearance: Present: no acute distress, well-nourished - EENT Eyes: PERRL, EOM intact ENT: hearing intact, clear oral mucosa Ears: bilateral: normal - Neck Neck: supple, normal ROM - Respiratory Respiratory effort: normal Respiratory: bilateral: CTA - Breasts Breasts: deferred - Cardiovascular Rhythm: regular Heart Sounds: Present: S1 & S2. Absent: gallop, rub Extremities: pulses intact, No edema, normal color, Full ROM - Gastrointestinal General gastrointestinal: Present: soft, non-tender, non-distended, normal bowel sounds Rectal Exam: deferred - Genitourinary Female genitourinary: deferred - Integumentary Integumentary: clear, warm, dry - Musculoskeletal Musculoskeletal: 1, strength equal bilaterally - Neurologic Neurologic: moves all extremities - Labs CBC & Chem 7: 11/11/18 07:26 11/11/18 07:15 Labs: Abnormal lab results 11/11/18 11/11/18 11/11/18 Range/Units 00:45 05:15 07:15 Hgb (10.1-14.3) gm/dl MCH (28-32) pg RDW (13.2-15.2) % [place] % (Auto) (0.0-7.3) % Chloride 107.5 H (98-107) mmol/L Creatinine 0.6 L (0.7-1.2) mg/dL Glucose 105 H (65-100) mg/dL POC Glucose 114 H 113 H (70-105) Calcium 8.2 L (8.4-10.2) mg/dL 11/11/18 11/11/18 Range/Units 07:26 11:29 Hgb 10.0 L (10.1-14.3) gm/dl MCH 26 L (28-32) pg RDW 19.7 H (13.2-15.2) % [place] % (Auto) 8.7 H (0.0-7.3) % Chloride (98-107) mmol/L Creatinine (0.7-1.2) mg/dL Glucose (65-100) mg/dL POC Glucose 114 H (70-105) Calcium (8.4-10.2) mg/dL Medications & Allergies - Medications Allergies/Adverse Reactions: Allergies No Known Allergies Allergy (Unverified 09/30/13 14:18) Home Medications: Home Medications Medication Instructions Recorded Confirmed Last Taken Type Glycopyrrolate [Robinul] 1 mg PO BID 07/29/17 11/03/18 Unknown History Ipratropium/Albuterol Sulfate 1 ampul IH Q4HR 07/29/17 11/03/18 Unknown History [DUONEB *Not for PRN Use*] Famotidine [Pepcid] 20 mg PO BID #60 tablet 08/07/17 11/03/18 Unknown Rx Acetaminophen [Acetaminophen 650 mg SD Q6H PRN 11/03/18 11/03/18 Unknown History SUPPOS] Acetaminophen [Tylenol] 650 mg PO Q4H PRN 11/03/18 11/03/18 Unknown History Aspirin [Aspirin BABY CHEW TAB] 81 mg PO QDAY 11/03/18 11/03/18 Unknown History Baclofen [Lioresal] 10 mg PO BID 11/03/18 11/03/18 Unknown History Bisacodyl [Dulcolax suppos] 10 mg SD QDAY PRN 11/03/18 11/03/18 Unknown History Cranberry Fruit Concentrate 450 mg PO BID 11/03/18 11/03/18 Unknown History [Cranberry] Glucagon (Human Recomb) [Glucagen] 1 mg IM Q24H PRN 11/03/18 11/03/18 Unknown History HYDROcodone/APAP 7.5-325 [[place] 1 each PO Q8HR PRN 11/03/18 11/03/18 Unknown History 7.5/325] Hyoscyamine Sulfate [Hyoscyamine 0.125 mg PO Q4H PRN 11/03/18 11/03/18 Unknown History Rapdis 0.125 mg] Insulin Glargine [Lantus] 10 unit SUB-Q QHS 11/03/18 11/03/18 Unknown History LORazepam [Ativan] 1 mg PO Q4H PRN 11/03/18 11/03/18 Unknown History Magnesium Hydroxide [Milk of 30 ml PO Q3D 11/03/18 11/03/18 Unknown History Magnesia] Morphine Concentrate [MORPHINE 0.25 ml PO Q4HR PRN 11/03/18 11/03/18 Unknown History Conc 20 MG/ML ORAL LIQ] Promethazine [Phenergan] 25 mg PO Q4H PRN 11/03/18 11/03/18 Unknown History Promethazine [Phenergan] 25 mg PO Q8HR PRN 11/03/18 11/03/18 Unknown History Promethazine [Phenergan] 25 mg SD Q4H PRN 11/03/18 11/03/18 Unknown History Sennosides Tab [Senokot] 17.2 mg PO BID 11/03/18 11/03/18 Unknown History Active Medications: Generic Name Dose Route Start Last Admin Trade Name Freq PRN Reason Stop Dose Admin Acetaminophen 650 mg 11/03/18 19:43 11/06/18 17:44 Tylenol PO 650 mg Q4H PRN Administration Pain, Mild (1-3) Acetaminophen 650 mg 11/03/18 20:00 Tylenol SD Q4H PRN Pain, Mild (1-3) Acetaminophen/Hydrocodone Bitart 1 each 11/03/18 19:37 11/09/18 22:29 [place] 7.5/325 PO 1 each Q4H PRN Administration Pain, Moderate (4-6) Albuterol 2.5 mg 11/05/18 11:00 Proventil IH Q3HRT PRN Shortness Of Breath Albuterol/Ipratropium 1 ampul 11/05/18 14:00 11/11/18 13:54 Duoneb *Not For Prn Use* IH 1 ampul TIDRT TIMMY Administration Lipase/Protease/Amylase 1 each 11/04/18 08:09 Pancreannabella Mccray 10,500 Unit FEEDTUBE PRN PRN For Clogged Feeding Tube Aspirin 81 mg 11/04/18 10:00 11/11/18 10:10 Baby Aspirin PO 81 mg QDAY TIMMY Administration Baclofen 10 mg 11/03/18 22:00 11/11/18 10:10 Lioresal PO 10 mg BID TIMMY Administration Bisacodyl 10 mg 11/03/18 19:18 Dulcolax SD QDAY PRN Constipation Glucagon 1 mg 11/03/18 19:18 Glucagen IM Q24H PRN Hypoglycemia Glycopyrrolate 1 mg 11/03/18 22:00 11/11/18 10:09 Robinul PO 1 mg BID TIMMY Administration Hyoscyamine 0.125 mg 11/03/18 19:49 Levsin Sl SL Q4H PRN EXCESSIVE SECRETION Sodium Chloride 1,000 mls @ 125 mls/hr 11/04/18 06:00 11/09/18 22:27 Nacl 0.9% 1000 Ml IV 125 mls/hr DIRECT TIMMY Administration Insulin Glargine 10 units 11/03/18 22:00 11/10/18 21:40 Lantus SUB-Q 10 units QHS TIMMY Administration Lansoprazole 30 mg 11/04/18 22:00 11/11/18 10:09 Prevacid Solutab FEEDTUBE 30 mg BID TIMMY Administration Lorazepam 1 mg 11/03/18 19:18 Ativan PO Q4H PRN Anxiety/Agitation Magnesium Hydroxide 30 ml 11/03/18 20:00 11/09/18 22:28 Milk Of Magnesia PO 30 ml Q3D TIMMY Administration Morphine Sulfate 5 mg 11/03/18 20:00 Roxanol Concentrate PO Q4H PRN Pain , Severe (7-10) Promethazine HCl 25 mg 11/03/18 19:18 Phenergan PO Q8HR PRN Nausea Promethazine HCl 25 mg 11/03/18 19:18 Phenergan SD Q4H PRN Nausea/ Vomiting Senna 17.2 mg 11/03/18 22:00 11/11/18 10:08 Senokot PO 17.2 mg BID TIMMY Administration Simple Syrup 15 ml 11/04/18 08:09 Simple Syrup FEEDTUBE PRN PRN Hypoglycemia Simple Syrup 30 ml 11/04/18 08:09 Simple Syrup FEEDTUBE PRN PRN Hypoglycemia Sodium Bicarbonate 325 mg 11/04/18 08:09 Sodium Bicarbonate FEEDTUBE PRN PRN For Clogged Feeding Tube Valacyclovir HCl 1,000 mg 11/10/18 11:00 11/11/18 10:09 Valtrex PO 1,000 mg Q12H TIMMY Administration
[2018-11-11] MEDS: NORCO 7.5/325 PO PRN (17:51)
[2018-11-11] MEDS: NACL 0.9% 1000 ML 1,000 ML IV SCH (18:23)
[2018-11-11] MEDS: LANTUS SUB-Q SCH (22:18)
[2018-11-12] MEDS: DUONEB *Not for PRN Use IH SCH ×3 (07:38→20:46)
--- NOTE | 2018-11-12 10:05 | Progress Note ---
Assessment and Plan Cultures: 11/02/2018 blood culture: Positive rods in 1 out of 4 bottles 11/02/2018 tracheal aspirate: Proteus, MDR-Providencia 11/03/2018 urine culture: Mixed glen A/P: 73-year-old female with anoxic brain injury, care home resident, chronic respiratory failure status post tracheostomy and PEG tube, previous history of cardiac arrest 1) Positive respiratory culture and now with respiratory distress: Initial CXR without pneumonia but now with resp distress and fever. Repeat CXR no consolidation. 11/02/2018 tracheal aspirate: Proteus, MDR-Providencia likely a colonizer. . 2) UTI: Patient with indwelling Blackman catheter. Unable to assess further symptomatic or not given her baseline mental status. Blackman exchanged per NS report. 3) Chronic encephalopathy: also likely worse from hypernatremia. 4) Sacral decubitus: likely herpes (multiple perianal round wounds) and sacral dec recommend wound care. Consult surgery for diverting colostomy 5) GPR Bacteremia: likely contaminant. 1/4 bottles positive. Recs: consult surgery for diverting colostomy HSV-2 serology - sent continue valtrex po 1 gm po bid total 7 days for suspect genital herpes, D3 of D14 continue wound care to sacral decubitus contact isolation due to MDR Providencia follow up with ID in 3 weeks (sent to licensed marine engineer) ID is signing off. [facility] M: [id number] O:[phone] Subjective Date of service: 11/12/18 Principal diagnosis: GI bleed Interval history: Patient seen and examined. Non verbal. Does not follow commands. +trach.. No fevers. Objective - Exam Narrative Exam: General: Somnolent. Nonverbal. Head, Ears, Nose: Normocephalic, atraumatic. External ears, nose normal Eyes: Conjunctivae/corneas clear. No icterus. No ptosis. Neck: trach + zarate secretions Oral: unable to examine Cardiovascular: RRR Respiratory: CTA charan GI: Soft, non-tender; bowel sounds normal. +PEG Musculoskeletal: left foot ulcer small no infected Skin: Multiple round Superficial buttock wounds present along with a central sacral decubitus ulcer Neurological: non verbal, contracted extremities - Constitutional Vitals: Vital Signs Temp Pulse Resp BP Pulse Ox 98.3 F 72 19 103/59 97 06/28/19 04:03 11/12/18 07:39 11/12/18 07:39 11/12/18 04:03 11/12/18 07:40 Temperature -Last 24 Hours Temperature 98.3 F Temperature 97.0 F Temperature 98.0 F Temperature 99.1 F Temperature 99.1 F - Labs CBC & Chem 7: 11/11/18 07:26 11/11/18 07:15 Labs: Abnormal lab results 11/11/18 11/11/18 11/11/18 Range/Units 11:29 18:20 21:44 POC ABG pO2 125 H (80-105) POC Glucose 114 H 119 H (70-105)
[2018-11-12] MEDS: NACL 0.9% 1000 ML 1,000 ML IV SCH (10:50)
[2018-11-12] MEDS: PREVACID SOLUTAB FEEDTUBE SCH ×2 (10:51→22:45)
[2018-11-12] MEDS: VALTREX PO SCH ×2 (10:51→22:42)
[2018-11-12] MEDS: BABY ASPIRIN PO SCH (10:52)
[2018-11-12] MEDS: LIORESAL PO SCH ×2 (10:52→22:42)
[2018-11-12] MEDS: SENOKOT PO SCH ×2 (10:52→22:42)
[2018-11-12] MEDS: ROBINUL PO SCH ×2 (10:52→22:43)
--- NOTE | 2018-11-12 19:09 | Progress Note ---
Assessment and Plan - Patient Problems (1) GI bleed Current Visit: Yes Status: Resolved Plan to address problem: GI consult. resolved. (2) Dehydration Current Visit: No Status: Acute Plan to address problem: Hydration. (3) UTI (urinary tract infection) Current Visit: Yes Status: Acute Plan to address problem: IV ABX. Follow ID rec. (4) UTI (urinary tract infection) Current Visit: No Status: Chronic Plan to address problem: IV ABX. see above. (5) Sepsis Current Visit: Yes Status: Acute Qualifiers: Sepsis type: sepsis due to unspecified organism Qualified Code(s): A41.9 - Sepsis, unspecified organism Plan to address problem: Due to strange org in the tracheal asp Follow current IV ABX, as per ID, and put patient on contact Isolation.as recommended by ID. Subjective Date of service: 11/12/18 Principal diagnosis: GI bleed Interval history: Patient seen/examined, resting in bed, labs/cultures reviewed, sputum with Gram positive cocci, stool / treachial asp tested positive for blood. GI on the case. Will add vanco to ABX. Patient seen/examined, resting in bed, labs reviewed, tracheal asp culture growing strange org, and will consult ID. Patient seen/examined, resting in bed, still awaiting ID rec ,so as to decide on disposition. Patient seen/examined, resting in bed, consult notes, labs, reviewed, and highly appreciated. Discharge will be as per their recommendations, when appropriate. Patient seen/examined, resting in bed, labs/notes reviewed, clinically , same. Will continue to follow ID rec as per disposition. Patient seen/examined, resting in bed, labs /notes reviewed, continue to follow ID. Patient seen/examined, resting in bed, labs reviewed, as well as notes. No new issues at this time, will continue to follow ID rec. will do new labs for am. Patient seen/examined, resting in bed, records/notes reviewed.will continue to follow ID.D/c back to [place] ,when ok with ID. Patient seen/examined, resting in bed, notes reviewed. Will call the [place], see if patient can come back, otherwise, the nurse case manager will have to arrange d/c on thursday. Objective - Constitutional Vitals: Vital Signs - 12hr 11/12/18 11/12/18 11/12/18 07:39 07:40 10:00 Pulse Rate [ 72 Anterior Bilateral] Respiratory 19 Rate [Anterior Bilateral] O2 Sat by Pulse 100 Oximetry O2 Sat by Pulse 97 Oximetry [ Assessment] 11/12/18 11/12/18 13:38 17:29 Pulse Rate [ 75 Anterior Bilateral] Respiratory 18 Rate [Anterior Bilateral] O2 Sat by Pulse 97 Oximetry O2 Sat by Pulse Oximetry [ Assessment] General appearance: Present: no acute distress, cachectic - EENT Eyes: PERRL, EOM intact ENT: hearing intact, clear oral mucosa Ears: bilateral: normal - Neck Neck: supple, normal ROM - Respiratory Respiratory: bilateral: diminished - Breasts Breasts: deferred - Cardiovascular Rhythm: regular Heart Sounds: Present: S1 & S2. Absent: gallop, rub Extremities: pulses intact, No edema, normal color, Full ROM - Gastrointestinal General gastrointestinal: Present: soft, non-tender, non-distended, normal bowel sounds Rectal Exam: deferred - Genitourinary Female genitourinary: deferred - Integumentary Integumentary: clear, warm, dry - Musculoskeletal Musculoskeletal: 1, strength equal bilaterally - Labs CBC & Chem 7: 11/11/18 07:26 11/11/18 07:15 Labs: Abnormal lab results 11/11/18 11/11/18 11/12/18 Range/Units 18:20 21:44 16:28 POC ABG pO2 125 H (80-105) POC Glucose 119 H 134 H (70-105) Medications & Allergies - Medications Allergies/Adverse Reactions: Allergies No Known Allergies Allergy (Unverified 09/30/13 14:18) Home Medications: Home Medications Medication Instructions Recorded Confirmed Last Taken Type Glycopyrrolate [Robinul] 1 mg PO BID 07/29/17 11/03/18 Unknown History Ipratropium/Albuterol Sulfate 1 ampul IH Q4HR 07/29/17 11/03/18 Unknown History [DUONEB *Not for PRN Use*] Famotidine [Pepcid] 20 mg PO BID #60 tablet 08/07/17 11/03/18 Unknown Rx Acetaminophen [Acetaminophen 650 mg MT Q6H PRN 11/03/18 11/03/18 Unknown History SUPPOS] Acetaminophen [Tylenol] 650 mg PO Q4H PRN 11/03/18 11/03/18 Unknown History Aspirin [Aspirin BABY CHEW TAB] 81 mg PO QDAY 11/03/18 11/03/18 Unknown History Baclofen [Lioresal] 10 mg PO BID 11/03/18 11/03/18 Unknown History Bisacodyl [Dulcolax suppos] 10 mg MT QDAY PRN 11/03/18 11/03/18 Unknown History Cranberry Fruit Concentrate 450 mg PO BID 11/03/18 11/03/18 Unknown History [Cranberry] Glucagon (Human Recomb) [Glucagen] 1 mg IM Q24H PRN 11/03/18 11/03/18 Unknown History HYDROcodone/APAP 7.5-325 [[place] 1 each PO Q8HR PRN 11/03/18 11/03/18 Unknown History 7.5/325] Hyoscyamine Sulfate [Hyoscyamine 0.125 mg PO Q4H PRN 11/03/18 11/03/18 Unknown History Rapdis 0.125 mg] Insulin Glargine [Lantus] 10 unit SUB-Q QHS 11/03/18 11/03/18 Unknown History LORazepam [Ativan] 1 mg PO Q4H PRN 11/03/18 11/03/18 Unknown History Magnesium Hydroxide [Milk of 30 ml PO Q3D 11/03/18 11/03/18 Unknown History Magnesia] Morphine Concentrate [MORPHINE 0.25 ml PO Q4HR PRN 11/03/18 11/03/18 Unknown History Conc 20 MG/ML ORAL LIQ] Promethazine [Phenergan] 25 mg PO Q4H PRN 11/03/18 11/03/18 Unknown History Promethazine [Phenergan] 25 mg PO Q8HR PRN 11/03/18 11/03/18 Unknown History Promethazine [Phenergan] 25 mg MT Q4H PRN 11/03/18 11/03/18 Unknown History Sennosides Tab [Senokot] 17.2 mg PO BID 11/03/18 11/03/18 Unknown History Active Medications: Generic Name Dose Route Start Last Admin Trade Name Freq PRN Reason Stop Dose Admin Acetaminophen 650 mg 11/03/18 19:43 11/06/18 17:44 Tylenol PO 650 mg Q4H PRN Administration Pain, Mild (1-3) Acetaminophen 650 mg 11/03/18 20:00 11/11/18 18:21 Tylenol MT 650 mg Q4H PRN Administration Pain, Mild (1-3) Acetaminophen/Hydrocodone Bitart 1 each 11/03/18 19:37 11/11/18 17:51 [place] 7.5/325 PO 1 each Q4H PRN Administration Pain, Moderate (4-6) Albuterol 2.5 mg 11/05/18 11:00 Proventil IH Q3HRT PRN Shortness Of Breath Albuterol/Ipratropium 1 ampul 11/05/18 14:00 11/12/18 13:37 Duoneb *Not For Prn Use* IH 1 ampul TIDRT TIMMY Administration Lipase/Protease/Amylase 1 each 11/04/18 08:09 Pancreazdomingo Mccray 10,500 Unit FEEDTUBE PRN PRN For Clogged Feeding Tube Aspirin 81 mg 11/04/18 10:00 11/12/18 10:52 Baby Aspirin PO 81 mg QDAY TIMMY Administration Baclofen 10 mg 11/03/18 22:00 11/12/18 10:52 Lioresal PO 10 mg BID TIMMY Administration Bisacodyl 10 mg 11/03/18 19:18 Dulcolax MT QDAY PRN Constipation Glucagon 1 mg 11/03/18 19:18 Glucagen IM Q24H PRN Hypoglycemia Glycopyrrolate 1 mg 11/03/18 22:00 11/12/18 10:52 Robinul PO 1 mg BID TIMMY Administration Hyoscyamine 0.125 mg 11/03/18 19:49 Levsin Sl SL Q4H PRN EXCESSIVE SECRETION Sodium Chloride 1,000 mls @ 75 mls/hr 11/04/18 06:00 11/12/18 10:50 Nacl 0.9% 1000 Ml IV 125 mls/hr DIRECT TIMMY Administration Insulin Glargine 10 units 11/03/18 22:00 11/11/18 22:18 Lantus SUB-Q 10 units QHS TIMMY Administration Lansoprazole 30 mg 11/04/18 22:00 11/12/18 10:51 Prevacid Solutab FEEDTUBE 30 mg BID TIMMY Administration Lorazepam 1 mg 11/03/18 19:18 Ativan PO Q4H PRN Anxiety/Agitation Magnesium Hydroxide 30 ml 11/03/18 20:00 11/09/18 22:28 Milk Of Magnesia PO 30 ml Q3D TIMMY Administration Morphine Sulfate 5 mg 11/03/18 20:00 Roxanol Concentrate PO Q4H PRN Pain , Severe (7-10) Promethazine HCl 25 mg 11/03/18 19:18 Phenergan PO Q8HR PRN Nausea Promethazine HCl 25 mg 11/03/18 19:18 Phenergan MT Q4H PRN Nausea/ Vomiting Senna 17.2 mg 11/03/18 22:00 11/12/18 10:52 Senokot PO 17.2 mg BID TIMMY Administration Simple Syrup 15 ml 11/04/18 08:09 Simple Syrup FEEDTUBE PRN PRN Hypoglycemia Simple Syrup 30 ml 11/04/18 08:09 Simple Syrup FEEDTUBE PRN PRN Hypoglycemia Sodium Bicarbonate 325 mg 11/04/18 08:09 Sodium Bicarbonate FEEDTUBE PRN PRN For Clogged Feeding Tube Valacyclovir HCl 1,000 mg 11/10/18 11:00 11/12/18 10:51 Valtrex PO 1,000 mg Q12H TIMMY Administration
[2018-11-12] MEDS: LANTUS SUB-Q SCH (22:42)
[2018-11-12] MEDS: MILK OF MAGNESIA PO SCH (22:42)
[2018-11-13] MEDS: LIORESAL PO SCH ×2 (10:41→21:24)
[2018-11-13] MEDS: BABY ASPIRIN PO SCH (10:41)
[2018-11-13] MEDS: SENOKOT PO SCH ×2 (10:41→21:24)
[2018-11-13] MEDS: ROBINUL PO SCH ×2 (10:41→21:24)
[2018-11-13] MEDS: VALTREX PO SCH ×3 (10:47→22:32)
[2018-11-13] MEDS: DUONEB *Not for PRN Use IH SCH ×3 (11:03→20:37)
[2018-11-13] MEDS ORDERED: LASIX IV ONE (14:13)
[2018-11-13] MEDS: PREVACID SOLUTAB FEEDTUBE SCH ×2 (18:32→21:24)
[2018-11-13] MEDS: NORCO 7.5/325 PO PRN (21:24)
--- NOTE | 2018-11-14 00:22 | Progress Note ---
Assessment and Plan - Patient Problems (1) GI bleed Current Visit: Yes Status: Resolved Plan to address problem: GI consult. resolved. (2) Dehydration Current Visit: No Status: Acute Plan to address problem: Hydration. (3) UTI (urinary tract infection) Current Visit: Yes Status: Acute Plan to address problem: IV ABX. Follow ID rec. (4) UTI (urinary tract infection) Current Visit: No Status: Chronic Plan to address problem: IV ABX. see above. (5) Sepsis Current Visit: Yes Status: Acute Qualifiers: Sepsis type: sepsis due to unspecified organism Qualified Code(s): A41.9 - Sepsis, unspecified organism Plan to address problem: Due to strange org in the tracheal asp Follow current IV ABX, as per ID, and put patient on contact Isolation.as recommended by ID. Subjective Date of service: 11/13/18 Principal diagnosis: GI bleed Interval history: Patient seen/examined, resting in bed, labs/cultures reviewed, sputum with Gram positive cocci, stool / treachial asp tested positive for blood. GI on the case. Will add vanco to ABX. Patient seen/examined, resting in bed, labs reviewed, tracheal asp culture growing strange org, and will consult ID. Patient seen/examined, resting in bed, still awaiting ID rec ,so as to decide on disposition. Patient seen/examined, resting in bed, consult notes, labs, reviewed, and highly appreciated. Discharge will be as per their recommendations, when appropriate. Patient seen/examined, resting in bed, labs/notes reviewed, clinically , same. Will continue to follow ID rec as per disposition. Patient seen/examined, resting in bed, labs /notes reviewed, continue to follow ID. Patient seen/examined, resting in bed, labs reviewed, as well as notes. No new issues at this time, will continue to follow ID rec. will do new labs for am. Patient seen/examined, resting in bed, records/notes reviewed.will continue to follow ID.D/c back to [place] ,when ok with ID. Patient seen/examined, resting in bed, notes reviewed. Will call the [place], see if patient can come back, otherwise, the adult protective caseworker will have to arrange d/c on thursday. Patient seen, with late entry, no new labs. She had some episode, earlier, and addressed. Objective - Constitutional Vitals: Vital Signs - 12hr 11/13/18 11/13/18 11/13/18 12:25 13:47 13:49 Temperature 97.4 F L Pulse Rate 162 H Pulse Rate [ 90 Anterior Bilateral] Respiratory 48 H Rate Respiratory 18 Rate [Anterior Bilateral] Blood Pressure 220/110 Blood Pressure [Right] O2 Sat by Pulse 99 96 Oximetry 11/13/18 11/13/18 11/13/18 13:55 16:54 20:37 Temperature 97.5 F L Pulse Rate 95 H Pulse Rate [ 88 76 Anterior Bilateral] Respiratory 16 Rate Respiratory 18 20 Rate [Anterior Bilateral] Blood Pressure Blood Pressure 112/76 [Right] O2 Sat by Pulse 100 Oximetry 11/13/18 11/13/18 11/13/18 20:38 20:55 21:00 Temperature 98.2 F Pulse Rate 80 Pulse Rate [ 75 Anterior Bilateral] Respiratory 20 Rate Respiratory 20 Rate [Anterior Bilateral] Blood Pressure Blood Pressure 90/47 [Right] O2 Sat by Pulse 100 100 Oximetry General appearance: Present: no acute distress, cachectic - EENT Eyes: PERRL, EOM intact ENT: hearing intact, clear oral mucosa Ears: bilateral: normal - Neck Neck: supple, normal ROM - Respiratory Respiratory: bilateral: diminished - Breasts Breasts: deferred - Cardiovascular Rhythm: regular Heart Sounds: Present: S1 & S2. Absent: gallop, rub Extremities: pulses intact, No edema, normal color, Full ROM - Gastrointestinal General gastrointestinal: Present: soft, non-tender, non-distended, normal bowel sounds Rectal Exam: deferred - Genitourinary Female genitourinary: deferred - Integumentary Integumentary: clear, warm, dry - Musculoskeletal Musculoskeletal: 1, strength equal bilaterally - Labs CBC & Chem 7: 11/11/18 07:26 11/11/18 07:15 Labs: Abnormal lab results 11/13/18 11/13/18 Range/Units 12:49 23:55 POC Glucose 140 H 130 H (70-105) Medications & Allergies - Medications Allergies/Adverse Reactions: Allergies No Known Allergies Allergy (Unverified 09/30/13 14:18) Home Medications: Home Medications Medication Instructions Recorded Confirmed Last Taken Type Glycopyrrolate [Robinul] 1 mg PO BID 07/29/17 11/03/18 Unknown History Ipratropium/Albuterol Sulfate 1 ampul IH Q4HR 07/29/17 11/03/18 Unknown History [DUONEB *Not for PRN Use*] Famotidine [Pepcid] 20 mg PO BID #60 tablet 08/07/17 11/03/18 Unknown Rx Acetaminophen [Acetaminophen 650 mg [place] Q6H PRN 11/03/18 11/03/18 Unknown History SUPPOS] Acetaminophen [Tylenol] 650 mg PO Q4H PRN 11/03/18 11/03/18 Unknown History Aspirin [Aspirin BABY CHEW TAB] 81 mg PO QDAY 11/03/18 11/03/18 Unknown History Baclofen [Lioresal] 10 mg PO BID 11/03/18 11/03/18 Unknown History Bisacodyl [Dulcolax suppos] 10 mg [place] QDAY PRN 11/03/18 11/03/18 Unknown History Cranberry Fruit Concentrate 450 mg PO BID 11/03/18 11/03/18 Unknown History [Cranberry] Glucagon (Human Recomb) [Glucagen] 1 mg IM Q24H PRN 11/03/18 11/03/18 Unknown History HYDROcodone/APAP 7.5-325 [[place] 1 each PO Q8HR PRN 11/03/18 11/03/18 Unknown History 7.5/325] Hyoscyamine Sulfate [Hyoscyamine 0.125 mg PO Q4H PRN 11/03/18 11/03/18 Unknown History Rapdis 0.125 mg] Insulin Glargine [Lantus] 10 unit SUB-Q QHS 11/03/18 11/03/18 Unknown History LORazepam [Ativan] 1 mg PO Q4H PRN 11/03/18 11/03/18 Unknown History Magnesium Hydroxide [Milk of 30 ml PO Q3D 11/03/18 11/03/18 Unknown History Magnesia] Morphine Concentrate [MORPHINE 0.25 ml PO Q4HR PRN 11/03/18 11/03/18 Unknown History Conc 20 MG/ML ORAL LIQ] Promethazine [Phenergan] 25 mg PO Q4H PRN 11/03/18 11/03/18 Unknown History Promethazine [Phenergan] 25 mg PO Q8HR PRN 11/03/18 11/03/18 Unknown History Promethazine [Phenergan] 25 mg [place] Q4H PRN 11/03/18 11/03/18 Unknown History Sennosides Tab [Senokot] 17.2 mg PO BID 11/03/18 11/03/18 Unknown History Active Medications: Generic Name Dose Route Start Last Admin Trade Name Freq PRN Reason Stop Dose Admin Acetaminophen 650 mg 11/03/18 19:43 11/06/18 17:44 Tylenol PO 650 mg Q4H PRN Administration Pain, Mild (1-3) Acetaminophen 650 mg 11/03/18 20:00 11/11/18 18:21 Tylenol [place] 650 mg Q4H PRN Administration Pain, Mild (1-3) Acetaminophen/Hydrocodone Bitart 1 each 11/03/18 19:37 11/13/18 21:24 [place] 7.5/325 PO 1 each Q4H PRN Administration Pain, Moderate (4-6) Albuterol 2.5 mg 11/05/18 11:00 Proventil IH Q3HRT PRN Shortness Of Breath Albuterol/Ipratropium 1 ampul 11/05/18 14:00 11/13/18 20:37 Duoneb *Not For Prn Use* IH 1 ampul TIDRT TIMMY Administration Lipase/Protease/Amylase 1 each 11/04/18 08:09 Pancreannabella Mccray 10,500 Unit FEEDTUBE PRN PRN For Clogged Feeding Tube Aspirin 81 mg 11/04/18 10:00 11/13/18 10:41 Baby Aspirin PO 81 mg QDAY TIMMY Administration Baclofen 10 mg 11/03/18 22:00 11/13/18 21:24 Lioresal PO 10 mg BID TIMMY Administration Bisacodyl 10 mg 11/03/18 19:18 Dulcolax [place] QDAY PRN Constipation Glucagon 1 mg 11/03/18 19:18 Glucagen IM Q24H PRN Hypoglycemia Glycopyrrolate 1 mg 11/03/18 22:00 11/13/18 21:24 Robinul PO 1 mg BID TIMMY Administration Hyoscyamine 0.125 mg 11/03/18 19:49 Levsin Sl SL Q4H PRN EXCESSIVE SECRETION Sodium Chloride 1,000 mls @ 75 mls/hr 11/04/18 06:00 11/12/18 10:50 Nacl 0.9% 1000 Ml IV 125 mls/hr DIRECT TIMMY Administration Insulin Glargine 10 units 11/03/18 22:00 11/12/18 22:42 Lantus SUB-Q 10 units QHS [facility] Administration Lansoprazole 30 mg 11/04/18 22:00 11/13/18 21:24 Prevacid Solutab FEEDTUBE 30 mg BID TIMMY Administration Lorazepam 1 mg 11/03/18 19:18 Ativan PO Q4H PRN Anxiety/Agitation Magnesium Hydroxide 30 ml 11/03/18 20:00 11/12/18 22:42 Milk Of Magnesia PO 30 ml Q3D TIMMY Administration Morphine Sulfate 5 mg 11/03/18 20:00 Roxanol Concentrate PO Q4H PRN Pain , Severe (7-10) Promethazine HCl 25 mg 11/03/18 19:18 Phenergan PO Q8HR PRN Nausea Promethazine HCl 25 mg 11/03/18 19:18 Phenergan [place] Q4H PRN Nausea/ Vomiting Senna 17.2 mg 11/03/18 22:00 11/13/18 21:24 Senokot PO 17.2 mg BID TIMMY Administration Simple Syrup 15 ml 11/04/18 08:09 Simple Syrup FEEDTUBE PRN PRN Hypoglycemia Simple Syrup 30 ml 11/04/18 08:09 Simple Syrup FEEDTUBE PRN PRN Hypoglycemia Sodium Bicarbonate 325 mg 11/04/18 08:09 Sodium Bicarbonate FEEDTUBE PRN PRN For Clogged Feeding Tube Valacyclovir HCl 1,000 mg 11/10/18 11:00 11/13/18 22:32 Valtrex PO Not Given Q12H [facility]
[2018-11-14] MEDS: LANTUS SUB-Q SCH ×2 (00:23→22:47)
[2018-11-14 08:31] LABS: Basophils % (Auto) 0.4 % (0.0-1.8); Eosinophils # (Auto) 0.2 K/mm3 (0.0-0.4); Eosinophils % (Auto) 3.4 % (0.0-4.3); Hematocrit 34.5 % (30.3-42.9); Hemoglobin 11.2 gm/dl (10.1-14.3); Lymphocytes # (Auto) 1.7 K/mm3 (1.2-5.4); Lymphocytes % (Auto) 30.8 % (13.4-35.0); Mean Corpuscular HGB Conc 33 % (30-34); Mean Corpuscular Volume 80 fl (79-97); Monocytes # (Auto) 0.7 K/mm3 (0.0-0.8); Monocytes % (Auto) 13.1 % (0.0-7.3); Platelet Count 281 K/mm3 (140-440); Red Blood Count 4.32 M/mm3 (3.65-5.03); Red Cell Distribution Width 19.9 % (13.2-15.2)
[2018-11-14 09:04] LABS: BUN/Creatinine Ratio 34; Blood Urea Nitrogen 27 mg/dL (7-17); Calcium 9.3 mg/dL (8.4-10.2); Hemolysis Index 4
[2018-11-14] MEDS: DUONEB *Not for PRN Use IH SCH ×3 (09:16→21:22)
[2018-11-14] MEDS: SENOKOT PO SCH ×2 (12:07→22:46)
[2018-11-14] MEDS: BABY ASPIRIN PO SCH (12:07)
[2018-11-14] MEDS: VALTREX PO SCH ×2 (12:07→22:47)
[2018-11-14] MEDS: ROBINUL PO SCH ×2 (12:07→22:46)
[2018-11-14] MEDS: PREVACID SOLUTAB FEEDTUBE SCH ×2 (12:07→22:46)
[2018-11-14] MEDS: LIORESAL PO SCH ×2 (12:07→22:46)
--- NOTE | 2018-11-14 15:13 | Progress Note ---
Assessment and Plan - Patient Problems (1) GI bleed Current Visit: Yes Status: Resolved Plan to address problem: GI consult. resolved. (2) Dehydration Current Visit: No Status: Acute Plan to address problem: Hydration. KVO. (3) UTI (urinary tract infection) Current Visit: Yes Status: Acute Plan to address problem: IV ABX. Follow ID rec. No new issues. (4) UTI (urinary tract infection) Current Visit: No Status: Chronic Plan to address problem: IV ABX. see above. she will be finishing valtrex , as prescribed. (5) Sepsis Current Visit: Yes Status: Acute Qualifiers: Sepsis type: sepsis due to unspecified organism Qualified Code(s): A41.9 - Sepsis, unspecified organism Plan to address problem: Due to strange org in the tracheal asp Follow current IV ABX, as per ID, and put patient on contact Isolation.as recommended by ID. continue same. Subjective Date of service: 11/14/18 Principal diagnosis: GI bleed Interval history: Patient seen/examined, resting in bed, labs/cultures reviewed, sputum with Gram positive cocci, stool / treachial asp tested positive for blood. GI on the case. Will add vanco to ABX. Patient seen/examined, resting in bed, labs reviewed, tracheal asp culture growing strange org, and will consult ID. Patient seen/examined, resting in bed, still awaiting ID rec ,so as to decide on disposition. Patient seen/examined, resting in bed, consult notes, labs, reviewed, and highly appreciated. Discharge will be as per their recommendations, when appropriate. Patient seen/examined, resting in bed, labs/notes reviewed, clinically , same. Will continue to follow ID rec as per disposition. Patient seen/examined, resting in bed, labs /notes reviewed, continue to follow ID. Patient seen/examined, resting in bed, labs reviewed, as well as notes. No new issues at this time, will continue to follow ID rec. will do new labs for am. Patient seen/examined, resting in bed, records/notes reviewed.will continue to follow ID.D/c back to [place] ,when ok with ID. Patient seen/examined, resting in bed, notes reviewed. Will call the [place], see if patient can come back, otherwise, the case management associate will have to arrange d/c on jamil. Patient seen, with late entry, no new labs. She had some episode, earlier, and addressed. Patient seen/examined, resting in bed, labs reviewed. Objective - Constitutional Vitals: Vital Signs - 12hr 11/14/18 11/14/18 11/14/18 03:15 04:00 04:07 Temperature 98.6 F 98.6 F Pulse Rate 96 H 101 H Respiratory 18 18 Rate Blood Pressure 97/65 Blood Pressure 97/55 [Right] O2 Sat by Pulse 100 100 Oximetry O2 Sat by Pulse 98 Oximetry [ Assessment] 11/14/18 11/14/18 11/14/18 06:01 08:31 08:32 Temperature Pulse Rate 96 H 88 164 H Respiratory Rate Blood Pressure 83/49 Blood Pressure [Right] O2 Sat by Pulse 59 L Oximetry O2 Sat by Pulse Oximetry [ Assessment] 11/14/18 11/14/18 08:50 11:44 Temperature 97.4 F L 97.2 F L Pulse Rate 79 89 Respiratory 16 16 Rate Blood Pressure 103/58 Blood Pressure 90/49 [Right] O2 Sat by Pulse 94 100 Oximetry O2 Sat by Pulse Oximetry [ Assessment] General appearance: Present: no acute distress, cachectic - EENT Eyes: PERRL, EOM intact ENT: hearing intact, clear oral mucosa Ears: bilateral: normal - Neck Neck: supple, normal ROM - Respiratory Respiratory: bilateral: diminished - Breasts Breasts: deferred - Cardiovascular Rhythm: regular Heart Sounds: Present: S1 & S2. Absent: gallop, rub Extremities: pulses intact, No edema, normal color, Full ROM - Gastrointestinal General gastrointestinal: Present: soft, non-tender, non-distended, normal bowel sounds Rectal Exam: deferred - Genitourinary Female genitourinary: deferred - Integumentary Integumentary: clear, warm, dry - Musculoskeletal Musculoskeletal: 1, strength equal bilaterally - Neurologic Neurologic: moves all extremities - Labs CBC & Chem 7: 11/14/18 07:46 11/14/18 07:46 Labs: Abnormal lab results 11/13/18 11/14/18 11/14/18 Range/Units 23:55 05:09 07:46 MCH 26 L (28-32) pg RDW 19.9 H (13.2-15.2) % [place] % (Auto) 13.1 H (0.0-7.3) % BUN (7-17) mg/dL Glucose (65-100) mg/dL POC Glucose 130 H 141 H (70-105) 11/14/18 11/14/18 Range/Units 07:46 11:50 MCH (28-32) pg RDW (13.2-15.2) % [place] % (Auto) (0.0-7.3) % BUN 27 H (7-17) mg/dL Glucose 126 H (65-100) mg/dL POC Glucose 136 H (70-105) Medications & Allergies - Medications Allergies/Adverse Reactions: Allergies No Known Allergies Allergy (Unverified 09/30/13 14:18) Home Medications: Home Medications Medication Instructions Recorded Confirmed Last Taken Type Glycopyrrolate [Robinul] 1 mg PO BID 07/29/17 11/03/18 Unknown History Ipratropium/Albuterol Sulfate 1 ampul IH Q4HR 07/29/17 11/03/18 Unknown History [DUONEB *Not for PRN Use*] Famotidine [Pepcid] 20 mg PO BID #60 tablet 08/07/17 11/03/18 Unknown Rx Acetaminophen [Acetaminophen 650 mg [place] Q6H PRN 11/03/18 11/03/18 Unknown History SUPPOS] Acetaminophen [Tylenol] 650 mg PO Q4H PRN 11/03/18 11/03/18 Unknown History Aspirin [Aspirin BABY CHEW TAB] 81 mg PO QDAY 11/03/18 11/03/18 Unknown History Baclofen [Lioresal] 10 mg PO BID 11/03/18 11/03/18 Unknown History Bisacodyl [Dulcolax suppos] 10 mg [place] QDAY PRN 11/03/18 11/03/18 Unknown History Cranberry Fruit Concentrate 450 mg PO BID 11/03/18 11/03/18 Unknown History [Cranberry] Glucagon (Human Recomb) [Glucagen] 1 mg IM Q24H PRN 11/03/18 11/03/18 Unknown History HYDROcodone/APAP 7.5-325 [[place] 1 each PO Q8HR PRN 11/03/18 11/03/18 Unknown History 7.5/325] Hyoscyamine Sulfate [Hyoscyamine 0.125 mg PO Q4H PRN 11/03/18 11/03/18 Unknown History Rapdis 0.125 mg] Insulin Glargine [Lantus] 10 unit SUB-Q QHS 11/03/18 11/03/18 Unknown History LORazepam [Ativan] 1 mg PO Q4H PRN 11/03/18 11/03/18 Unknown History Magnesium Hydroxide [Milk of 30 ml PO Q3D 11/03/18 11/03/18 Unknown History Magnesia] Morphine Concentrate [MORPHINE 0.25 ml PO Q4HR PRN 11/03/18 11/03/18 Unknown History Conc 20 MG/ML ORAL LIQ] Promethazine [Phenergan] 25 mg PO Q4H PRN 11/03/18 11/03/18 Unknown History Promethazine [Phenergan] 25 mg PO Q8HR PRN 11/03/18 11/03/18 Unknown History Promethazine [Phenergan] 25 mg [place] Q4H PRN 11/03/18 11/03/18 Unknown History Sennosides Tab [Senokot] 17.2 mg PO BID 11/03/18 11/03/18 Unknown History Active Medications: Generic Name Dose Route Start Last Admin Trade Name Freq PRN Reason Stop Dose Admin Acetaminophen 650 mg 11/03/18 19:43 11/06/18 17:44 Tylenol PO 650 mg Q4H PRN Administration Pain, Mild (1-3) Acetaminophen 650 mg 11/03/18 20:00 11/11/18 18:21 Tylenol [place] 650 mg Q4H PRN Administration Pain, Mild (1-3) Acetaminophen/Hydrocodone Bitart 1 each 11/03/18 19:37 11/13/18 21:24 [place] 7.5/325 PO 1 each Q4H PRN Administration Pain, Moderate (4-6) Albuterol 2.5 mg 11/05/18 11:00 Proventil IH Q3HRT PRN Shortness Of Breath Albuterol/Ipratropium 1 ampul 11/05/18 14:00 11/14/18 15:01 Duoneb *Not For Prn Use* IH 1 ampul TIDRT TIMMY Administration Lipase/Protease/Amylase 1 each 11/04/18 08:09 Jarad Mccray 10,500 Unit FEEDTUBE PRN PRN For Clogged Feeding Tube Aspirin 81 mg 11/04/18 10:00 11/14/18 12:07 Baby Aspirin PO 81 mg QDAY TIMMY Administration Baclofen 10 mg 11/03/18 22:00 11/14/18 12:07 Lioresal PO 10 mg BID TIMMY Administration Bisacodyl 10 mg 11/03/18 19:18 Dulcolax [place] QDAY PRN Constipation Glucagon 1 mg 11/03/18 19:18 Glucagen IM Q24H PRN Hypoglycemia Glycopyrrolate 1 mg 11/03/18 22:00 11/14/18 12:07 Robinul PO 1 mg BID TIMMY Administration Hyoscyamine 0.125 mg 11/03/18 19:49 Levsin Sl SL Q4H PRN EXCESSIVE SECRETION Sodium Chloride 1,000 mls @ 75 mls/hr 11/04/18 06:00 11/12/18 10:50 Nacl 0.9% 1000 Ml IV 125 mls/hr DIRECT TIMMY Administration Insulin Glargine 10 units 11/03/18 22:00 11/14/18 00:23 Lantus SUB-Q 10 units QHS TIMMY Administration Lansoprazole 30 mg 11/04/18 22:00 11/14/18 12:07 Prevacid Solutab FEEDTUBE 30 mg BID TIMMY Administration Lorazepam 1 mg 11/03/18 19:18 Ativan PO Q4H PRN Anxiety/Agitation Magnesium Hydroxide 30 ml 11/03/18 20:00 11/12/18 22:42 Milk Of Magnesia PO 30 ml Q3D TIMMY Administration Morphine Sulfate 5 mg 11/03/18 20:00 Roxanol Concentrate PO Q4H PRN Pain , Severe (7-10) Promethazine HCl 25 mg 11/03/18 19:18 Phenergan PO Q8HR PRN Nausea Promethazine HCl 25 mg 11/03/18 19:18 Phenergan [place] Q4H PRN Nausea/ Vomiting Senna 17.2 mg 11/03/18 22:00 11/14/18 12:07 Senokot PO 17.2 mg BID TIMMY Administration Simple Syrup 15 ml 11/04/18 08:09 Simple Syrup FEEDTUBE PRN PRN Hypoglycemia Simple Syrup 30 ml 11/04/18 08:09 Simple Syrup FEEDTUBE PRN PRN Hypoglycemia Sodium Bicarbonate 325 mg 11/04/18 08:09 Sodium Bicarbonate FEEDTUBE PRN PRN For Clogged Feeding Tube Valacyclovir HCl 1,000 mg 11/10/18 11:00 11/14/18 12:07 Valtrex PO 1,000 mg Q12H TIMMY Administration
[2018-11-15] MEDS: NACL 0.9% 1000 ML 1,000 ML IV SCH ×2 (05:13→22:28)
[2018-11-15] MEDS: DUONEB *Not for PRN Use IH SCH ×3 (08:53→20:08)
[2018-11-15] MEDS: ROBINUL PO SCH ×2 (09:29→22:28)
[2018-11-15] MEDS: SENOKOT PO SCH ×2 (09:29→22:28)
[2018-11-15] MEDS: PREVACID SOLUTAB FEEDTUBE SCH ×2 (09:29→22:28)
[2018-11-15] MEDS: BABY ASPIRIN PO SCH (09:29)
[2018-11-15] MEDS: LIORESAL PO SCH ×2 (09:29→22:28)
[2018-11-15] MEDS: VALTREX PO SCH (11:21)
--- NOTE | 2018-11-15 19:08 | Progress Note ---
Assessment and Plan - Patient Problems (1) GI bleed Current Visit: Yes Status: Resolved Plan to address problem: GI consult. resolved. (2) Dehydration Current Visit: No Status: Acute Plan to address problem: Hydration. KVO. (3) UTI (urinary tract infection) Current Visit: Yes Status: Acute Plan to address problem: IV ABX. Follow ID rec. No new issues. (4) UTI (urinary tract infection) Current Visit: No Status: Chronic Plan to address problem: IV ABX. see above. she will be finishing valtrex , as prescribed. (5) Sepsis Current Visit: Yes Status: Acute Qualifiers: Sepsis type: sepsis due to unspecified organism Qualified Code(s): A41.9 - Sepsis, unspecified organism Plan to address problem: Due to strange org in the tracheal asp Follow current IV ABX, as per ID, and put patient on contact Isolation.as recommended by ID. continue same. Subjective Date of service: 11/15/18 Principal diagnosis: GI bleed Interval history: Patient seen/examined, resting in bed, labs/cultures reviewed, sputum with Gram positive cocci, stool / treachial asp tested positive for blood. GI on the case. Will add vanco to ABX. Patient seen/examined, resting in bed, labs reviewed, tracheal asp culture growing strange org, and will consult ID. Patient seen/examined, resting in bed, still awaiting ID rec ,so as to decide on disposition. Patient seen/examined, resting in bed, consult notes, labs, reviewed, and highly appreciated. Discharge will be as per their recommendations, when appropriate. Patient seen/examined, resting in bed, labs/notes reviewed, clinically , same. Will continue to follow ID rec as per disposition. Patient seen/examined, resting in bed, labs /notes reviewed, continue to follow ID. Patient seen/examined, resting in bed, labs reviewed, as well as notes. No new issues at this time, will continue to follow ID rec. will do new labs for am. Patient seen/examined, resting in bed, records/notes reviewed.will continue to follow ID.D/c back to [facility] ,when ok with ID. Patient seen/examined, resting in bed, notes reviewed. Will call the [facility], see if patient can come back, otherwise, the window caser will have to arrange d/c on [place]. Patient seen, with late entry, no new labs. She had some episode, earlier, and addressed. Patient seen/examined, resting in bed, labs reviewed. Patient seen/examined, resting in bed, as per the nurses report, Patient had episodes of elevated heart rate , with hypoxia, recurrent mucus plugs.If she is d/c, she will come right back to the ER ,if this was to happen at the NH. Will get plumonary to see her , and advice on safe disposition.Mucomyst tried. Objective - Constitutional Vitals: Vital Signs - 12hr 11/15/18 11/15/18 11/15/18 08:12 08:52 08:53 Temperature 99.8 F H Pulse Rate 101 H Pulse Rate [ 98 H Anterior Bilateral] Respiratory 18 Rate Respiratory 20 Rate [Anterior Bilateral] Blood Pressure 103/62 O2 Sat by Pulse 98 100 Oximetry O2 Sat by Pulse Oximetry [ Assessment] 11/15/18 11/15/18 11/15/18 09:02 10:00 13:10 Temperature 99.0 F Pulse Rate 100 H 152 H Pulse Rate [ 100 H Anterior Bilateral] Respiratory 20 Rate Respiratory 20 Rate [Anterior Bilateral] Blood Pressure 118/69 O2 Sat by Pulse 98 100 Oximetry O2 Sat by Pulse 100 Oximetry [ Assessment] 11/15/18 11/15/18 15:07 15:40 Temperature Pulse Rate Pulse Rate [ 129 H Anterior Bilateral] Respiratory Rate Respiratory 26 H Rate [Anterior Bilateral] Blood Pressure O2 Sat by Pulse Oximetry O2 Sat by Pulse 100 Oximetry [ Assessment] General appearance: Present: mild distress, cachectic - EENT Eyes: PERRL, EOM intact ENT: hearing intact, clear oral mucosa Ears: bilateral: normal - Neck Neck: supple, normal ROM - Respiratory Respiratory: bilateral: diminished, rhonchi - Breasts Breasts: deferred - Cardiovascular Rhythm: regular Heart Sounds: Present: S1 & S2. Absent: gallop, rub Extremities: pulses intact, No edema, normal color, Full ROM - Gastrointestinal General gastrointestinal: Present: soft, non-tender, non-distended, normal bowel sounds Rectal Exam: deferred - Genitourinary Female genitourinary: deferred - Integumentary Integumentary: clear, warm, dry - Musculoskeletal Musculoskeletal: 1, strength equal bilaterally - Neurologic Neurologic: moves all extremities - Labs CBC & Chem 7: 11/14/18 07:46 06/30/19 07:46 Labs: Abnormal lab results 11/14/18 11/15/18 11/15/18 Range/Units 19:26 00:33 05:52 POC Glucose 117 H 128 H 115 H (70-105) 11/15/18 11/15/18 Range/Units 12:20 18:07 POC Glucose 115 H 135 H (70-105) Medications & Allergies - Medications Allergies/Adverse Reactions: Allergies No Known Allergies Allergy (Unverified 09/30/13 14:18) Home Medications: Home Medications Medication Instructions Recorded Confirmed Last Taken Type Glycopyrrolate [Robinul] 1 mg PO BID 07/29/17 11/03/18 Unknown History Ipratropium/Albuterol Sulfate 1 ampul IH Q4HR 07/29/17 11/03/18 Unknown History [DUONEB *Not for PRN Use*] Famotidine [Pepcid] 20 mg PO BID #60 tablet 08/07/17 11/03/18 Unknown Rx Acetaminophen [Acetaminophen 650 mg PA Q6H PRN 11/03/18 11/03/18 Unknown History SUPPOS] Acetaminophen [Tylenol] 650 mg PO Q4H PRN 11/03/18 11/03/18 Unknown History Aspirin [Aspirin BABY CHEW TAB] 81 mg PO QDAY 11/03/18 11/03/18 Unknown History Baclofen [Lioresal] 10 mg PO BID 11/03/18 11/03/18 Unknown History Bisacodyl [Dulcolax suppos] 10 mg PA QDAY PRN 11/03/18 11/03/18 Unknown History Cranberry Fruit Concentrate 450 mg PO BID 11/03/18 11/03/18 Unknown History [Cranberry] Glucagon (Human Recomb) [Glucagen] 1 mg IM Q24H PRN 11/03/18 11/03/18 Unknown History HYDROcodone/APAP 7.5-325 [[place] 1 each PO Q8HR PRN 11/03/18 11/03/18 Unknown History 7.5/325] Hyoscyamine Sulfate [Hyoscyamine 0.125 mg PO Q4H PRN 11/03/18 11/03/18 Unknown History Rapdis 0.125 mg] Insulin Glargine [Lantus] 10 unit SUB-Q QHS 11/03/18 11/03/18 Unknown History LORazepam [Ativan] 1 mg PO Q4H PRN 11/03/18 11/03/18 Unknown History Magnesium Hydroxide [Milk of 30 ml PO Q3D 11/03/18 11/03/18 Unknown History Magnesia] Morphine Concentrate [MORPHINE 0.25 ml PO Q4HR PRN 11/03/18 11/03/18 Unknown History Conc 20 MG/ML ORAL LIQ] Promethazine [Phenergan] 25 mg PO Q4H PRN 11/03/18 11/03/18 Unknown History Promethazine [Phenergan] 25 mg PO Q8HR PRN 11/03/18 11/03/18 Unknown History Promethazine [Phenergan] 25 mg PA Q4H PRN 11/03/18 11/03/18 Unknown History Sennosides Tab [Senokot] 17.2 mg PO BID 11/03/18 11/03/18 Unknown History Active Medications: Generic Name Dose Route Start Last Admin Trade Name Freq PRN Reason Stop Dose Admin Acetaminophen 650 mg 11/03/18 19:43 11/06/18 17:44 Tylenol PO 650 mg Q4H PRN Administration Pain, Mild (1-3) Acetaminophen 650 mg 11/03/18 20:00 11/11/18 18:21 Tylenol PA 650 mg Q4H PRN Administration Pain, Mild (1-3) Acetaminophen/Hydrocodone [place] 1 each 11/03/18 19:37 11/13/18 21:24 [place] 7.5/325 PO 1 each Q4H PRN Administration Pain, Moderate (4-6) Albuterol 2.5 mg 11/05/18 11:00 Proventil IH Q3HRT PRN Shortness Of Breath Albuterol/Ipratropium 1 ampul 11/05/18 14:00 11/15/18 15:06 Duoneb *Not For Prn Use* IH 1 ampul TIDRT TIMMY Administration Lipase/Protease/Amylase 1 each 11/04/18 08:09 Jarad Mccray 10,500 Unit FEEDTUBE PRN PRN For Clogged Feeding Tube Aspirin 81 mg 11/04/18 10:00 11/15/18 09:29 Baby Aspirin PO 81 mg QDAY TIMMY Administration Baclofen 10 mg 11/03/18 22:00 11/15/18 09:29 Lioresal PO 10 mg BID TIMMY Administration Bisacodyl 10 mg 11/03/18 19:18 Dulcolax PA QDAY PRN Constipation Glucagon 1 mg 11/03/18 19:18 Glucagen IM Q24H PRN Hypoglycemia Glycopyrrolate 1 mg 11/03/18 22:00 11/15/18 09:29 Robinul PO 1 mg BID TIMMY Administration Hyoscyamine 0.125 mg 11/03/18 19:49 Levsin Sl SL Q4H PRN EXCESSIVE SECRETION Sodium Chloride 1,000 mls @ 75 mls/hr 11/04/18 06:00 11/15/18 05:13 Nacl 0.9% 1000 Ml IV 125 mls/hr DIRECT TIMMY Administration Insulin Glargine 10 units 11/03/18 22:00 11/14/18 22:47 Lantus SUB-Q 10 units QHS TIMMY Administration Lansoprazole 30 mg 11/04/18 22:00 11/15/18 09:29 Prevacid Solutab FEEDTUBE 30 mg BID TIMMY Administration Lorazepam 1 mg 11/03/18 19:18 Ativan PO Q4H PRN Anxiety/Agitation Magnesium Hydroxide 30 ml 11/03/18 20:00 11/12/18 22:42 Milk Of Magnesia PO 30 ml Q3D TIMMY Administration Morphine Sulfate 5 mg 11/03/18 20:00 Roxanol Concentrate PO Q4H PRN Pain , Severe (7-10) Promethazine HCl 25 mg 11/03/18 19:18 Phenergan PO Q8HR PRN Nausea Promethazine HCl 25 mg 11/03/18 19:18 Phenergan PA Q4H PRN Nausea/ Vomiting Senna 17.2 mg 11/03/18 22:00 11/15/18 09:29 Senokot PO 17.2 mg BID TIMMY Administration Simple Syrup 15 ml 11/04/18 08:09 Simple Syrup FEEDTUBE PRN PRN Hypoglycemia Simple Syrup 30 ml 11/04/18 08:09 Simple Syrup FEEDTUBE PRN PRN Hypoglycemia Sodium Bicarbonate 325 mg 11/04/18 08:09 Sodium Bicarbonate FEEDTUBE PRN PRN For Clogged Feeding Tube Valacyclovir HCl 1,000 mg 11/10/18 11:00 11/15/18 11:21 Valtrex PO 11/16/18 23:01 1,000 mg Q12H TIMMY Administration
[2018-11-15] MEDS: LANTUS SUB-Q SCH (22:28)
[2018-11-15] MEDS: MILK OF MAGNESIA PO SCH (22:28)
[2018-11-16] MEDS: DUONEB *Not for PRN Use IH SCH ×3 (07:44→19:00)
[2018-11-16] MEDS: LIORESAL PO SCH ×2 (09:46→22:39)
[2018-11-16] MEDS: BABY ASPIRIN PO SCH (09:47)
[2018-11-16] MEDS: PREVACID SOLUTAB FEEDTUBE SCH ×2 (09:48→22:39)
[2018-11-16] MEDS: ROBINUL PO SCH (09:49)
--- NOTE | 2018-11-16 10:31 | Consultation ---
History of Present Illness Consult date: 11/16/18 Requesting physician: NANDA WADDELL Reason for consult: other (Acute Respiratory Distress; Frequent mucus plugging) History of present illness: PULMONARY/CCM CONSULT NOTE (Full dictation # [id number]) Please see dictated notes for full details A&P: - discontinue Robinul re: thick secretions - gentle hydration to loosen secretions (1/2 NS @ 50 mls/hr X 1 liter re: CHF history) Past History Past Medical History: anemia, stroke, other (as per HPI) Past Surgical History: hysterectomy, mastectomy, Other (trach/PEG) Social history: other ([facility] Medications and Allergies Allergies Allergy/AdvReac Type Severity Reaction Status Date / Time No Known Allergies Allergy Unverified 09/30/13 14:18 Home Medications Medication Instructions Recorded Confirmed Last Taken Type Glycopyrrolate [Robinul] 1 mg PO BID 07/29/17 11/03/18 Unknown History Ipratropium/Albuterol Sulfate 1 ampul IH Q4HR 07/29/17 11/03/18 Unknown History [DUONEB *Not for PRN Use*] Famotidine [Pepcid] 20 mg PO BID #60 tablet 08/07/17 11/03/18 Unknown Rx Acetaminophen [Acetaminophen 650 mg AR Q6H PRN 11/03/18 11/03/18 Unknown History SUPPOS] Acetaminophen [Tylenol] 650 mg PO Q4H PRN 11/03/18 11/03/18 Unknown History Aspirin [Aspirin BABY CHEW TAB] 81 mg PO QDAY 11/03/18 11/03/18 Unknown History Baclofen [Lioresal] 10 mg PO BID 11/03/18 11/03/18 Unknown History Bisacodyl [Dulcolax suppos] 10 mg AR QDAY PRN 11/03/18 11/03/18 Unknown History Cranberry Fruit Concentrate 450 mg PO BID 11/03/18 11/03/18 Unknown History [Cranberry] Glucagon (Human Recomb) [Glucagen] 1 mg IM Q24H PRN 11/03/18 11/03/18 Unknown History HYDROcodone/APAP 7.5-325 [[place] 1 each PO Q8HR PRN 11/03/18 11/03/18 Unknown History 7.5/325] Hyoscyamine Sulfate [Hyoscyamine 0.125 mg PO Q4H PRN 11/03/18 11/03/18 Unknown History Rapdis 0.125 mg] Insulin Glargine [Lantus] 10 unit SUB-Q QHS 11/03/18 11/03/18 Unknown History LORazepam [Ativan] 1 mg PO Q4H PRN 11/03/18 11/03/18 Unknown History Magnesium Hydroxide [Milk of 30 ml PO Q3D 11/03/18 11/03/18 Unknown History Magnesia] Morphine Concentrate [MORPHINE 0.25 ml PO Q4HR PRN 11/03/18 11/03/18 Unknown History Conc 20 MG/ML ORAL LIQ] Promethazine [Phenergan] 25 mg PO Q4H PRN 11/03/18 11/03/18 Unknown History Promethazine [Phenergan] 25 mg PO Q8HR PRN 11/03/18 11/03/18 Unknown History Promethazine [Phenergan] 25 mg AR Q4H PRN 11/03/18 11/03/18 Unknown History Sennosides Tab [Senokot] 17.2 mg PO BID 11/03/18 11/03/18 Unknown History Active Meds: Active Medications Acetaminophen (Tylenol) 650 mg PO Q4H PRN PRN Reason: Pain, Mild (1-3) Last Admin: 11/06/18 17:44 Dose: 650 mg Documented by: Acetaminophen (Tylenol) 650 mg AR Q4H PRN PRN Reason: Pain, Mild (1-3) Last Admin: 11/11/18 18:21 Dose: 650 mg Documented by: Acetaminophen/Hydrocodone Bitart ([place] 7.5/325) 1 each PO Q4H PRN PRN Reason: Pain, Moderate (4-6) Last Admin: 11/13/18 21:24 Dose: 1 each Documented by: Albuterol (Proventil) 2.5 mg IH Q3HRT PRN PRN Reason: Shortness Of Breath Albuterol/Ipratropium (Duoneb *Not For Prn Use*) 1 ampul IH TIDRT TIMMY Last Admin: 11/16/18 07:44 Dose: Not Given Documented by: Lipase/Protease/Amylase (Jarad Mccray 10,500 Unit) 1 each FEEDTUBE PRN PRN PRN Reason: For Clogged Feeding Tube Aspirin (Baby Aspirin) 81 mg PO QDAY [facility] Last Admin: 11/16/18 09:47 Dose: 81 mg Documented by: Baclofen (Lioresal) 10 mg PO BID [facility] Last Admin: 11/16/18 09:46 Dose: 10 mg Documented by: Bisacodyl (Dulcolax) 10 mg AR QDAY PRN PRN Reason: Constipation Glucagon (Glucagen) 1 mg IM Q24H PRN PRN Reason: Hypoglycemia Glycopyrrolate (Robinul) 1 mg PO BID [facility] Last Admin: 11/16/18 09:49 Dose: 1 mg Documented by: Hyoscyamine (Levsin Sl) 0.125 mg SL Q4H PRN PRN Reason: EXCESSIVE SECRETION Sodium Chloride (Nacl 0.9% 1000 Ml) 1,000 mls @ 75 mls/hr IV DIRECT [facility] Last Admin: 11/15/18 22:28 Dose: 125 mls/hr Documented by: Insulin Glargine (Lantus) 10 units SUB-Q QHS [facility] Last Admin: 11/15/18 22:28 Dose: 10 units Documented by: Lansoprazole (Prevacid Solutab) 30 mg FEEDTUBE BID [facility] Last Admin: 11/16/18 09:48 Dose: 30 mg Documented by: Lorazepam (Ativan) 1 mg PO Q4H PRN PRN Reason: Anxiety/Agitation Magnesium Hydroxide (Milk Of Magnesia) 30 ml PO Q3D [facility] Last Admin: 11/15/18 22:28 Dose: 30 ml Documented by: Morphine Sulfate (Roxanol Concentrate) 5 mg PO Q4H PRN PRN Reason: Pain , Severe (7-10) Promethazine HCl (Phenergan) 25 mg PO Q8HR PRN PRN Reason: Nausea Promethazine HCl (Phenergan) 25 mg AR Q4H PRN PRN Reason: Nausea/ Vomiting Senna (Senokot) 17.2 mg PO BID [facility] Last Admin: 11/15/18 22:28 Dose: 17.2 mg Documented by: Simple Syrup (Simple Syrup) 15 ml FEEDTUBE PRN PRN PRN Reason: Hypoglycemia Simple Syrup (Simple Syrup) 30 ml FEEDTUBE PRN PRN PRN Reason: Hypoglycemia Sodium Bicarbonate (Sodium Bicarbonate) 325 mg FEEDTUBE PRN PRN PRN Reason: For Clogged Feeding Tube Valacyclovir HCl (Valtrex) 1,000 mg PO Q12H TIMMY Stop: 11/16/18 23:01 Last Admin: 11/16/18 00:00 Dose: 1,000 mg Documented by: Physical Examination Vital signs: Vital Signs Temp Pulse Resp BP Pulse Ox 99.7 F H 106 H 26 H 117/71 94 11/02/18 23:10 11/02/18 23:10 11/02/18 23:10 11/02/18 23:10 11/02/18 23:10 Results - Laboratory Findings CBC and BMP: 11/14/18 07:46 11/14/18 07:46 ABG POC ABG pH 7.431 (7.35-7.45) 11/11/18 21:44 POC ABG pCO2 38.7 (35-45) 11/11/18 21:44 POC ABG pO2 125 (80-105) H 11/11/18 21:44 POC ABG HCO3 25.8 (22-26 mml/L) 11/11/18 21:44 POC ABG Total CO2 27 (23-27mmol/L) 11/11/18 21:44 POC ABG O2 Sat 99 11/11/18 21:44 PT/INR, D-dimer PT 13.8 Sec. (12.2-14.9) 11/02/18 23:54 INR 1.09 (0.87-1.13) 11/02/18 23:54 Abnormal lab findings: Abnormal Labs 11/02/18 11/02/18 11/02/18 23:42 23:42 23:54 RBC Hgb Hct MCV 78 L MCH 26 L RDW 18.8 H Lymph % (Auto) 11.3 L [place] % (Auto) Lymph # Seg Neutrophils % 83.0 H Seg Neutrophils # 8.5 H POC ABG pO2 Sodium Potassium Chloride 94.4 L Carbon Dioxide 31 H BUN 41 H Creatinine Glucose 149 H POC Glucose Lactic Acid 2.20 H* Calcium 10.4 H Albumin Urine pH Urine WBC (Auto) 11/02/18 11/03/18 11/03/18 23:54 02:38 20:39 RBC Hgb Hct MCV MCH RDW Lymph % (Auto) [place] % (Auto) Lymph # Seg Neutrophils % Seg Neutrophils # POC ABG pO2 Sodium Potassium Chloride Carbon Dioxide BUN Creatinine Glucose POC Glucose 109 H Lactic Acid Calcium Albumin 3.5 L Urine pH 8.0 H Urine WBC (Auto) 63.0 H 11/03/18 11/03/18 11/04/18 22:14 Unknown 00:43 RBC Hgb Hct MCV MCH RDW Lymph % (Auto) [place] % (Auto) Lymph # Seg Neutrophils % Seg Neutrophils # POC ABG pO2 106 H Sodium Potassium Chloride Carbon Dioxide BUN Creatinine Glucose POC Glucose 116 H Lactic Acid 2.80 H* Calcium Albumin Urine pH Urine WBC (Auto) 11/04/18 11/04/18 11/04/18 05:12 07:57 11:46 RBC Hgb Hct MCV MCH 26 L RDW 19.6 H Lymph % (Auto) 7.9 L [place] % (Auto) Lymph # 0.7 L Seg Neutrophils % 88.0 H Seg Neutrophils # POC ABG pO2 Sodium Potassium Chloride Carbon Dioxide BUN Creatinine Glucose POC Glucose 121 H 113 H Lactic Acid Calcium Albumin Urine pH Urine WBC (Auto) 11/04/18 11/05/18 11/05/18 17:14 05:44 07:43 RBC Hgb Hct MCV MCH RDW Lymph % (Auto) [place] % (Auto) Lymph # Seg Neutrophils % Seg Neutrophils # POC ABG pO2 Sodium 155 H D Potassium 3.5 L Chloride 118.0 H Carbon Dioxide BUN 26 H Creatinine Glucose POC Glucose 110 H 111 H Lactic Acid Calcium Albumin Urine pH Urine WBC (Auto) 11/05/18 11/05/18 11/06/18 16:09 20:37 17:31 RBC Hgb Hct MCV MCH RDW Lymph % (Auto) [place] % (Auto) Lymph # Seg Neutrophils % Seg Neutrophils # POC ABG pO2 Sodium Potassium Chloride Carbon Dioxide BUN Creatinine Glucose POC Glucose 117 H 139 H 120 H Lactic Acid Calcium Albumin Urine pH Urine WBC (Auto) 11/07/18 11/07/18 11/08/18 03:55 15:44 00:54 RBC Hgb Hct MCV MCH RDW Lymph % (Auto) [place] % (Auto) Lymph # Seg Neutrophils % Seg Neutrophils # POC ABG pO2 Sodium Potassium Chloride Carbon Dioxide BUN Creatinine Glucose POC Glucose 118 H 108 H 122 H Lactic Acid Calcium Albumin Urine pH Urine WBC (Auto) 11/08/18 11/08/18 11/08/18 07:10 07:44 07:44 RBC 3.63 L Hgb 9.4 L Hct 28.9 L MCV MCH 26 L RDW 19.3 H Lymph % (Auto) [place] % (Auto) 8.1 H Lymph # Seg Neutrophils % Seg Neutrophils # POC ABG pO2 Sodium Potassium Chloride 110.6 H Carbon Dioxide BUN Creatinine 0.6 L Glucose 104 H POC Glucose 109 H Lactic Acid Calcium 8.1 L Albumin Urine pH Urine WBC (Auto) 11/08/18 11/09/18 11/09/18 22:00 12:51 22:30 RBC Hgb Hct MCV MCH RDW Lymph % (Auto) [place] % (Auto) Lymph # Seg Neutrophils % Seg Neutrophils # POC ABG pO2 Sodium Potassium Chloride Carbon Dioxide BUN Creatinine Glucose POC Glucose 109 H 124 H 147 H Lactic Acid Calcium Albumin Urine pH Urine WBC (Auto) 11/10/18 11/10/18 11/11/18 06:54 13:34 00:45 RBC Hgb Hct MCV MCH RDW Lymph % (Auto) [place] % (Auto) Lymph # Seg Neutrophils % Seg Neutrophils # POC ABG pO2 Sodium Potassium Chloride Carbon Dioxide BUN Creatinine Glucose POC Glucose 138 H 118 H 114 H Lactic Acid Calcium Albumin Urine pH Urine WBC (Auto) 11/11/18 11/11/18 11/11/18 05:15 07:15 07:26 RBC Hgb 10.0 L Hct MCV MCH 26 L RDW 19.7 H Lymph % (Auto) [place] % (Auto) 8.7 H Lymph # Seg Neutrophils % Seg Neutrophils # POC ABG pO2 Sodium Potassium Chloride 107.5 H Carbon Dioxide BUN Creatinine 0.6 L Glucose 105 H POC Glucose 113 H Lactic Acid Calcium 8.2 L Albumin Urine pH Urine WBC (Auto) 11/11/18 11/11/18 11/11/18 11:29 18:20 21:44 RBC Hgb Hct MCV MCH RDW Lymph % (Auto) [place] % (Auto) Lymph # Seg Neutrophils % Seg Neutrophils # POC ABG pO2 125 H Sodium Potassium Chloride Carbon Dioxide BUN Creatinine Glucose POC Glucose 114 H 119 H Lactic Acid Calcium Albumin Urine pH Urine WBC (Auto) 11/12/18 11/12/18 11/13/18 16:28 22:46 12:49 RBC Hgb Hct MCV MCH RDW Lymph % (Auto) [place] % (Auto) Lymph # Seg Neutrophils % Seg Neutrophils # POC ABG pO2 Sodium Potassium Chloride Carbon Dioxide BUN Creatinine Glucose POC Glucose 134 H 152 H 140 H Lactic Acid Calcium Albumin Urine pH Urine WBC (Auto) 11/13/18 11/14/18 11/14/18 23:55 05:09 07:46 RBC Hgb Hct MCV MCH 26 L RDW 19.9 H Lymph % (Auto) [place] % (Auto) 13.1 H Lymph # Seg Neutrophils % Seg Neutrophils # POC ABG pO2 Sodium Potassium Chloride Carbon Dioxide BUN Creatinine Glucose POC Glucose 130 H 141 H Lactic Acid Calcium Albumin Urine pH Urine WBC (Auto) 11/14/18 11/14/18 11/14/18 07:46 11:50 19:26 RBC Hgb Hct MCV MCH RDW Lymph % (Auto) [place] % (Auto) Lymph # Seg Neutrophils % Seg Neutrophils # POC ABG pO2 Sodium Potassium Chloride Carbon Dioxide BUN 27 H Creatinine Glucose 126 H POC Glucose 136 H 117 H Lactic Acid Calcium Albumin Urine pH Urine WBC (Auto) 11/15/18 11/15/18 11/15/18 00:33 05:52 12:20 RBC Hgb Hct MCV MCH RDW Lymph % (Auto) [place] % (Auto) Lymph # Seg Neutrophils % Seg Neutrophils # POC ABG pO2 Sodium Potassium Chloride Carbon Dioxide BUN Creatinine Glucose POC Glucose 128 H 115 H 115 H Lactic Acid Calcium Albumin Urine pH Urine WBC (Auto) 11/15/18 11/15/18 11/16/18 18:07 22:24 00:15 RBC Hgb Hct MCV MCH RDW Lymph % (Auto) [place] % (Auto) Lymph # Seg Neutrophils % Seg Neutrophils # POC ABG pO2 Sodium Potassium Chloride Carbon Dioxide BUN Creatinine Glucose POC Glucose 135 H 136 H 137 H Lactic Acid Calcium Albumin Urine pH Urine WBC (Auto) 11/16/18 05:48 RBC Hgb Hct MCV MCH RDW Lymph % (Auto) [place] % (Auto) Lymph # Seg Neutrophils % Seg Neutrophils # POC ABG pO2 Sodium Potassium Chloride Carbon Dioxide BUN Creatinine Glucose POC Glucose 125 H Lactic Acid Calcium Albumin Urine pH Urine WBC (Auto)
[2018-11-16] MEDS: VALTREX PO SCH ×3 (11:13→22:39)
[2018-11-16] MEDS: SENOKOT PO SCH ×2 (11:13→22:39)
[2018-11-16] MEDS ORDERED: NACL 0.45% 1,000 ML IV SCH (15:00)
--- NOTE | 2018-11-16 19:39 | Progress Note ---
Assessment and Plan - Patient Problems (1) GI bleed Current Visit: Yes Status: Resolved Plan to address problem: GI consult. resolved. (2) Dehydration Current Visit: No Status: Acute Plan to address problem: Hydration. KVO. (3) UTI (urinary tract infection) Current Visit: Yes Status: Acute Plan to address problem: IV ABX. Follow ID rec. No new issues. (4) UTI (urinary tract infection) Current Visit: No Status: Chronic Plan to address problem: IV ABX. see above. she will be finishing valtrex , as prescribed. (5) Sepsis Current Visit: Yes Status: Acute Qualifiers: Sepsis type: sepsis due to unspecified organism Qualified Code(s): A41.9 - Sepsis, unspecified organism Plan to address problem: Due to strange org in the tracheal asp Follow current IV ABX, as per ID, and put patient on contact Isolation.as recommended by ID. continue same. resolved. Subjective Date of service: 11/16/18 Principal diagnosis: GI bleed Interval history: Patient seen/examined, resting in bed, labs/cultures reviewed, sputum with Gram positive cocci, stool / treachial asp tested positive for blood. GI on the case. Will add vanco to ABX. Patient seen/examined, resting in bed, labs reviewed, tracheal asp culture growing strange org, and will consult ID. Patient seen/examined, resting in bed, still awaiting ID rec ,so as to decide on disposition. Patient seen/examined, resting in bed, consult notes, labs, reviewed, and highly appreciated. Discharge will be as per their recommendations, when appropriate. Patient seen/examined, resting in bed, labs/notes reviewed, clinically , same. Will continue to follow ID rec as per disposition. Patient seen/examined, resting in bed, labs /notes reviewed, continue to follow ID. Patient seen/examined, resting in bed, labs reviewed, as well as notes. No new issues at this time, will continue to follow ID rec. will do new labs for am. Patient seen/examined, resting in bed, records/notes reviewed.will continue to follow ID.D/c back to [facility] ,when ok with ID. Patient seen/examined, resting in bed, notes reviewed. Will call the [facility], see if patient can come back, otherwise, the rehabilitation case coordinator will have to arrange d/c on thursday. Patient seen, with late entry, no new labs. She had some episode, earlier, and addressed. Patient seen/examined, resting in bed, labs reviewed. Patient seen/examined, resting in bed, as per the nurses report, Patient had episodes of elevated heart rate , with hypoxia, recurrent mucus plugs.If she is d/c, she will come right back to the ER ,if this was to happen at the NH. Will get plumonary to see her , and advice on safe disposition.Mucomyst tried. Patient seen/examined, resting in bed, consult note reviewed, and appreciated. Objective - Constitutional Vitals: Vital Signs - 12hr 11/16/18 11/16/18 11/16/18 07:51 08:11 13:09 Temperature 98.5 F 98.8 F Pulse Rate 137 H 108 H Pulse Rate [ Anterior Bilateral] Respiratory 22 22 Rate Respiratory Rate [Anterior Bilateral] Blood Pressure 150/66 107/78 O2 Sat by Pulse 100 100 99 Oximetry O2 Sat by Pulse 100 Oximetry [ Assessment] 11/16/18 11/16/18 11/16/18 13:42 13:52 13:53 Temperature Pulse Rate Pulse Rate [ 115 H 120 H Anterior Bilateral] Respiratory Rate Respiratory 20 18 Rate [Anterior Bilateral] Blood Pressure O2 Sat by Pulse Oximetry O2 Sat by Pulse 100 Oximetry [ Assessment] 11/16/18 11/16/18 11/16/18 19:00 19:01 19:12 Temperature Pulse Rate Pulse Rate [ 100 H 112 H Anterior Bilateral] Respiratory Rate Respiratory 18 18 Rate [Anterior Bilateral] Blood Pressure O2 Sat by Pulse 100 Oximetry O2 Sat by Pulse Oximetry [ Assessment] General appearance: Present: mild distress - EENT Eyes: PERRL, EOM intact ENT: hearing intact, clear oral mucosa Ears: bilateral: normal - Neck Neck: supple, normal ROM - Respiratory Respiratory: bilateral: rhonchi - Breasts Breasts: deferred - Cardiovascular Rhythm: regular Heart Sounds: Present: S1 & S2. Absent: gallop, rub Extremities: pulses intact, No edema, normal color, Full ROM - Gastrointestinal General gastrointestinal: Present: soft, non-tender, non-distended, normal bowel sounds Rectal Exam: deferred - Genitourinary Female genitourinary: deferred - Integumentary Integumentary: clear, warm, dry - Musculoskeletal Musculoskeletal: 1, strength equal bilaterally - Neurologic Neurologic: moves all extremities - Labs CBC & Chem 7: 11/14/18 07:46 11/14/18 07:46 Labs: Abnormal lab results 11/15/18 11/16/18 11/16/18 Range/Units 22:24 00:15 05:48 POC Glucose 136 H 137 H 125 H (70-105) 11/16/18 11/16/18 Range/Units 11:34 17:56 POC Glucose 136 H 123 H (70-105) Medications & Allergies - Medications Allergies/Adverse Reactions: Allergies No Known Allergies Allergy (Unverified 09/30/13 14:18) Home Medications: Home Medications Medication Instructions Recorded Confirmed Last Taken Type Glycopyrrolate [Robinul] 1 mg PO BID 07/29/17 11/03/18 Unknown History Ipratropium/Albuterol Sulfate 1 ampul IH Q4HR 07/29/17 11/03/18 Unknown History [DUONEB *Not for PRN Use*] Famotidine [Pepcid] 20 mg PO BID #60 tablet 08/07/17 11/03/18 Unknown Rx Acetaminophen [Acetaminophen 650 mg MO Q6H PRN 11/03/18 11/03/18 Unknown History SUPPOS] Acetaminophen [Tylenol] 650 mg PO Q4H PRN 11/03/18 11/03/18 Unknown History Aspirin [Aspirin BABY CHEW TAB] 81 mg PO QDAY 11/03/18 11/03/18 Unknown History Baclofen [Lioresal] 10 mg PO BID 11/03/18 11/03/18 Unknown History Bisacodyl [Dulcolax suppos] 10 mg MO QDAY PRN 11/03/18 11/03/18 Unknown History Cranberry Fruit Concentrate 450 mg PO BID 11/03/18 11/03/18 Unknown History [Cranberry] Glucagon (Human Recomb) [Glucagen] 1 mg IM Q24H PRN 11/03/18 11/03/18 Unknown History HYDROcodone/APAP 7.5-325 [Blaine 1 each PO Q8HR PRN 11/03/18 11/03/18 Unknown History 7.5/325] Hyoscyamine Sulfate [Hyoscyamine 0.125 mg PO Q4H PRN 11/03/18 11/03/18 Unknown History Rapdis 0.125 mg] Insulin Glargine [Lantus] 10 unit SUB-Q QHS 11/03/18 11/03/18 Unknown History LORazepam [Ativan] 1 mg PO Q4H PRN 11/03/18 11/03/18 Unknown History Magnesium Hydroxide [Milk of 30 ml PO Q3D 11/03/18 11/03/18 Unknown History Magnesia] Morphine Concentrate [MORPHINE 0.25 ml PO Q4HR PRN 11/03/18 11/03/18 Unknown History Conc 20 MG/ML ORAL LIQ] Promethazine [Phenergan] 25 mg PO Q4H PRN 11/03/18 11/03/18 Unknown History Promethazine [Phenergan] 25 mg PO Q8HR PRN 11/03/18 11/03/18 Unknown History Promethazine [Phenergan] 25 mg MO Q4H PRN 11/03/18 11/03/18 Unknown History Sennosides Tab [Senokot] 17.2 mg PO BID 11/03/18 11/03/18 Unknown History Active Medications: Generic Name Dose Route Start Last Admin Trade Name Freq PRN Reason Stop Dose Admin Acetaminophen 650 mg 11/03/18 19:43 11/06/18 17:44 Tylenol PO 650 mg Q4H PRN Administration Pain, Mild (1-3) Acetaminophen 650 mg 11/03/18 20:00 11/11/18 18:21 Tylenol MO 650 mg Q4H PRN Administration Pain, Mild (1-3) Acetaminophen/Hydrocodone Bitart 1 each 11/03/18 19:37 11/13/18 21:24 Blaine 7.5/325 PO 1 each Q4H PRN Administration Pain, Moderate (4-6) Albuterol 2.5 mg 11/05/18 11:00 Proventil IH Q3HRT PRN Shortness Of Breath Albuterol/Ipratropium 1 ampul 11/05/18 14:00 11/16/18 19:00 Duoneb *Not For Prn Use* IH 1 ampul TIDRT TIMMY Administration Lipase/Protease/Amylase 1 each 11/04/18 08:09 Pancreannabella Mccray 10,500 Unit FEEDTUBE PRN PRN For Clogged Feeding Tube Aspirin 81 mg 11/04/18 10:00 11/16/18 09:47 Baby Aspirin PO 81 mg QDAY TIMMY Administration Baclofen 10 mg 11/03/18 22:00 11/16/18 09:46 Lioresal PO 10 mg BID TIMMY Administration Bisacodyl 10 mg 11/03/18 19:18 Dulcolax MO QDAY PRN Constipation Glucagon 1 mg 11/03/18 19:18 Glucagen IM Q24H PRN Hypoglycemia Hyoscyamine 0.125 mg 11/03/18 19:49 Levsin Sl SL Q4H PRN EXCESSIVE SECRETION Sodium Chloride 1,000 mls @ 50 mls/hr 11/16/18 15:00 11/16/18 18:29 Nacl 0.45% IV 11/17/18 10:59 50 mls/hr DIRECT TIMMY Administration Insulin Glargine 10 units 11/03/18 22:00 11/15/18 22:28 Lantus SUB-Q 10 units QHS TIMMY Administration Lansoprazole 30 mg 11/04/18 22:00 11/16/18 09:48 Prevacid Solutab FEEDTUBE 30 mg BID TIMMY Administration Lorazepam 1 mg 11/03/18 19:18 Ativan PO Q4H PRN Anxiety/Agitation Magnesium Hydroxide 30 ml 11/03/18 20:00 11/15/18 22:28 Milk Of Magnesia PO 30 ml Q3D TIMMY Administration Morphine Sulfate 5 mg 11/03/18 20:00 Roxanol Concentrate PO Q4H PRN Pain , Severe (7-10) Promethazine HCl 25 mg 11/03/18 19:18 Phenergan PO Q8HR PRN Nausea Promethazine HCl 25 mg 11/03/18 19:18 Phenergan MO Q4H PRN Nausea/ Vomiting Senna 17.2 mg 11/03/18 22:00 11/16/18 11:13 Senokot PO 17.2 mg BID TIMMY Administration Simple Syrup 15 ml 11/04/18 08:09 Simple Syrup FEEDTUBE PRN PRN Hypoglycemia Simple Syrup 30 ml 11/04/18 08:09 Simple Syrup FEEDTUBE PRN PRN Hypoglycemia Sodium Bicarbonate 325 mg 11/04/18 08:09 Sodium Bicarbonate FEEDTUBE PRN PRN For Clogged Feeding Tube Valacyclovir HCl 1,000 mg 11/10/18 11:00 11/16/18 11:13 Valtrex PO 11/16/18 23:01 1,000 mg Q12H TIMMY Administration
[2018-11-16] MEDS: LANTUS SUB-Q SCH (23:08)
--- NOTE | 2018-11-17 05:46 | Progress Note ---
Assessment and Plan Acute on chronic hypoxemic respiratory failure. Acute gastrointestinal bleed. History of diabetes. Chronic encephalopathy. Anoxic encephalopathy. Oropharyngeal dysphagia - continue bronchodilators with pulmonary hygiene per RT - continue supplemental oxygen to keep O2 sat's > 90% - continue aspiration precautions - gentle rehydration - continue glycemic control with SSI for target BG < 180 mg/dl - PT/OT - mobility protocols noé pressure ulcer prophylaxis - continue other care per attending ... re-evaluate in am & prn Subjective Date of service: 11/17/18 Principal diagnosis: Ac on ch hypoxemic resp failure; Mucus plugging; Ac. GI bleed; DM II Interval history: Patient is seen today for: Acute on chronic hypoxemic respiratory failure; Acute gastrointestinal bleed; History of diabetes; Chronic encephalopathy (Anoxic); Oropharyngeal dysphagia Seen and examined at bedside; 24hour events reviewed; nursing and respiratory care staff consulted; no adverse overnight events reported to me; resting peacefully in bed; No emesis or overt aspiration; AMS is persistent; no repeat mucus plugging or large volume atelectasis noted Objective Vital Signs - 12hr 11/16/18 11/16/18 11/16/18 19:00 19:01 19:12 Temperature Pulse Rate Pulse Rate [ 100 H 112 H Anterior Bilateral] Pulse Rate [ From Monitor] Respiratory Rate Respiratory 18 18 Rate [Anterior Bilateral] Blood Pressure O2 Sat by Pulse 100 Oximetry O2 Sat by Pulse Oximetry [ Assessment] 11/16/18 11/16/18 11/17/18 22:00 23:15 00:00 Temperature 99.3 F Pulse Rate 110 H Pulse Rate [ Anterior Bilateral] Pulse Rate [ 112 H From Monitor] Respiratory 30 H Rate Respiratory Rate [Anterior Bilateral] Blood Pressure 120/73 O2 Sat by Pulse 96 96 Oximetry O2 Sat by Pulse 98 Oximetry [ Assessment] 11/17/18 02:28 Temperature 98.5 F Pulse Rate 93 H Pulse Rate [ Anterior Bilateral] Pulse Rate [ From Monitor] Respiratory 24 Rate Respiratory Rate [Anterior Bilateral] Blood Pressure 101/56 O2 Sat by Pulse 99 Oximetry O2 Sat by Pulse Oximetry [ Assessment] Constitutional: no acute distress, other (elderly looking AAF, normocephalic with mildly increased resp effort at rest) Eyes: non-icteric ENT: oropharynx moist Neck: supple, no lymphadenopathy, no JVD, other (+ midline tracheostomy tube) Effort: mildly labored Ascultation: Bilateral: rhonchi (scant) Percussion: Bilateral: not dull Cardiovascular: regular rate and rhythm, murmur noted (EDIE) Gastrointestinal: normoactive bowel sounds, soft, non-tender, non-distended Integumentary: normal Extremities: no cyanosis, no edema, pulses normal, no ischemia or petechiae Neurologic: pupils equal and round, unable to assess, other (+ pedal contractures) Psychiatric: other (encephalopathic) CBC and BMP: 11/14/18 07:46 11/17/18 04:47 ABG, PT/INR, D-dimer: ABG POC ABG pH 7.431 (7.35-7.45) 11/11/18 21:44 POC ABG pCO2 38.7 (35-45) 11/11/18 21:44 POC ABG pO2 125 (80-105) H 11/11/18 21:44 POC ABG HCO3 25.8 (22-26 mml/L) 11/11/18 21:44 POC ABG Total CO2 27 (23-27mmol/L) 11/11/18 21:44 POC ABG O2 Sat 99 11/11/18 21:44 PT/INR, D-dimer PT 13.8 Sec. (12.2-14.9) 11/02/18 23:54 INR 1.09 (0.87-1.13) 11/02/18 23:54 Abnormal lab findings: Abnormal Labs 11/02/18 11/02/18 11/02/18 23:42 23:42 23:54 RBC Hgb Hct MCV 78 L MCH 26 L RDW 18.8 H Lymph % (Auto) 11.3 L [place] % (Auto) Lymph # Seg Neutrophils % 83.0 H Seg Neutrophils # 8.5 H POC ABG pO2 Sodium Potassium Chloride 94.4 L Carbon Dioxide 31 H BUN 41 H Creatinine Glucose 149 H POC Glucose Lactic Acid 2.20 H* Calcium 10.4 H Albumin Urine pH Urine WBC (Auto) 11/02/18 11/03/18 11/03/18 23:54 02:38 20:39 RBC Hgb Hct MCV MCH RDW Lymph % (Auto) [place] % (Auto) Lymph # Seg Neutrophils % Seg Neutrophils # POC ABG pO2 Sodium Potassium Chloride Carbon Dioxide BUN Creatinine Glucose POC Glucose 109 H Lactic Acid Calcium Albumin 3.5 L Urine pH 8.0 H Urine WBC (Auto) 63.0 H 11/03/18 11/03/18 11/04/18 22:14 Unknown 00:43 RBC Hgb Hct MCV MCH RDW Lymph % (Auto) [place] % (Auto) Lymph # Seg Neutrophils % Seg Neutrophils # POC ABG pO2 106 H Sodium Potassium Chloride Carbon Dioxide BUN Creatinine Glucose POC Glucose 116 H Lactic Acid 2.80 H* Calcium Albumin Urine pH Urine WBC (Auto) 11/04/18 11/04/18 11/04/18 05:12 07:57 11:46 RBC Hgb Hct MCV MCH 26 L RDW 19.6 H Lymph % (Auto) 7.9 L [place] % (Auto) Lymph # 0.7 L Seg Neutrophils % 88.0 H Seg Neutrophils # POC ABG pO2 Sodium Potassium Chloride Carbon Dioxide BUN Creatinine Glucose POC Glucose 121 H 113 H Lactic Acid Calcium Albumin Urine pH Urine WBC (Auto) 11/04/18 11/05/18 11/05/18 17:14 05:44 07:43 RBC Hgb Hct MCV MCH RDW Lymph % (Auto) [place] % (Auto) Lymph # Seg Neutrophils % Seg Neutrophils # POC ABG pO2 Sodium 155 H D Potassium 3.5 L Chloride 118.0 H Carbon Dioxide BUN 26 H Creatinine Glucose POC Glucose 110 H 111 H Lactic Acid Calcium Albumin Urine pH Urine WBC (Auto) 11/05/18 11/05/18 11/06/18 16:09 20:37 17:31 RBC Hgb Hct MCV MCH RDW Lymph % (Auto) [place] % (Auto) Lymph # Seg Neutrophils % Seg Neutrophils # POC ABG pO2 Sodium Potassium Chloride Carbon Dioxide BUN Creatinine Glucose POC Glucose 117 H 139 H 120 H Lactic Acid Calcium Albumin Urine pH Urine WBC (Auto) 11/07/18 11/07/18 11/08/18 03:55 15:44 00:54 RBC Hgb Hct MCV MCH RDW Lymph % (Auto) [place] % (Auto) Lymph # Seg Neutrophils % Seg Neutrophils # POC ABG pO2 Sodium Potassium Chloride Carbon Dioxide BUN Creatinine Glucose POC Glucose 118 H 108 H 122 H Lactic Acid Calcium Albumin Urine pH Urine WBC (Auto) 11/08/18 11/08/18 11/08/18 07:10 07:44 07:44 RBC 3.63 L Hgb 9.4 L Hct 28.9 L MCV MCH 26 L RDW 19.3 H Lymph % (Auto) [place] % (Auto) 8.1 H Lymph # Seg Neutrophils % Seg Neutrophils # POC ABG pO2 Sodium Potassium Chloride 110.6 H Carbon Dioxide BUN Creatinine 0.6 L Glucose 104 H POC Glucose 109 H Lactic Acid Calcium 8.1 L Albumin Urine pH Urine WBC (Auto) 11/08/18 11/09/18 11/09/18 22:00 12:51 22:30 RBC Hgb Hct MCV MCH RDW Lymph % (Auto) [place] % (Auto) Lymph # Seg Neutrophils % Seg Neutrophils # POC ABG pO2 Sodium Potassium Chloride Carbon Dioxide BUN Creatinine Glucose POC Glucose 109 H 124 H 147 H Lactic Acid Calcium Albumin Urine pH Urine WBC (Auto) 11/10/18 11/10/18 11/11/18 06:54 13:34 00:45 RBC Hgb Hct MCV MCH RDW Lymph % (Auto) [place] % (Auto) Lymph # Seg Neutrophils % Seg Neutrophils # POC ABG pO2 Sodium Potassium Chloride Carbon Dioxide BUN Creatinine Glucose POC Glucose 138 H 118 H 114 H Lactic Acid Calcium Albumin Urine pH Urine WBC (Auto) 11/11/18 11/11/18 11/11/18 05:15 07:15 07:26 RBC Hgb 10.0 L Hct MCV MCH 26 L RDW 19.7 H Lymph % (Auto) [place] % (Auto) 8.7 H Lymph # Seg Neutrophils % Seg Neutrophils # POC ABG pO2 Sodium Potassium Chloride 107.5 H Carbon Dioxide BUN Creatinine 0.6 L Glucose 105 H POC Glucose 113 H Lactic Acid Calcium 8.2 L Albumin Urine pH Urine WBC (Auto) 11/11/18 11/11/18 11/11/18 11:29 18:20 21:44 RBC Hgb Hct MCV MCH RDW Lymph % (Auto) [place] % (Auto) Lymph # Seg Neutrophils % Seg Neutrophils # POC ABG pO2 125 H Sodium Potassium Chloride Carbon Dioxide BUN Creatinine Glucose POC Glucose 114 H 119 H Lactic Acid Calcium Albumin Urine pH Urine WBC (Auto) 11/12/18 11/12/18 11/13/18 16:28 22:46 12:49 RBC Hgb Hct MCV MCH RDW Lymph % (Auto) [place] % (Auto) Lymph # Seg Neutrophils % Seg Neutrophils # POC ABG pO2 Sodium Potassium Chloride Carbon Dioxide BUN Creatinine Glucose POC Glucose 134 H 152 H 140 H Lactic Acid Calcium Albumin Urine pH Urine WBC (Auto) 06/11/14/18 11/14/18 23:55 05:09 07:46 RBC Hgb Hct MCV MCH 26 L RDW 19.9 H Lymph % (Auto) [place] % (Auto) 13.1 H Lymph # Seg Neutrophils % Seg Neutrophils # POC ABG pO2 Sodium Potassium Chloride Carbon Dioxide BUN Creatinine Glucose POC Glucose 130 H 141 H Lactic Acid Calcium Albumin Urine pH Urine WBC (Auto) 11/14/18 11/14/18 11/14/18 07:46 11:50 19:26 RBC Hgb Hct MCV MCH RDW Lymph % (Auto) [place] % (Auto) Lymph # Seg Neutrophils % Seg Neutrophils # POC ABG pO2 Sodium Potassium Chloride Carbon Dioxide BUN 27 H Creatinine Glucose 126 H POC Glucose 136 H 117 H Lactic Acid Calcium Albumin Urine pH Urine WBC (Auto) 11/15/18 11/15/18 11/15/18 00:33 05:52 12:20 RBC Hgb Hct MCV MCH RDW Lymph % (Auto) [place] % (Auto) Lymph # Seg Neutrophils % Seg Neutrophils # POC ABG pO2 Sodium Potassium Chloride Carbon Dioxide BUN Creatinine Glucose POC Glucose 128 H 115 H 115 H Lactic Acid Calcium Albumin Urine pH Urine WBC (Auto) 11/15/18 11/15/18 11/16/18 18:07 22:24 00:15 RBC Hgb Hct MCV MCH RDW Lymph % (Auto) [place] % (Auto) Lymph # Seg Neutrophils % Seg Neutrophils # POC ABG pO2 Sodium Potassium Chloride Carbon Dioxide BUN Creatinine Glucose POC Glucose 135 H 136 H 137 H Lactic Acid Calcium Albumin Urine pH Urine WBC (Auto) 11/16/18 11/16/18 11/16/18 05:48 11:34 17:56 RBC Hgb Hct MCV MCH RDW Lymph % (Auto) [place] % (Auto) Lymph # Seg Neutrophils % Seg Neutrophils # POC ABG pO2 Sodium Potassium Chloride Carbon Dioxide BUN Creatinine Glucose POC Glucose 125 H 136 H 123 H Lactic Acid Calcium Albumin Urine pH Urine WBC (Auto) 11/16/18 11/17/18 23:14 05:34 RBC Hgb Hct MCV MCH RDW Lymph % (Auto) [place] % (Auto) Lymph # Seg Neutrophils % Seg Neutrophils # POC ABG pO2 Sodium Potassium Chloride Carbon Dioxide BUN Creatinine Glucose POC Glucose 122 H 137 H Lactic Acid Calcium Albumin Urine pH Urine WBC (Auto) Chest x-ray: image reviewed (trach in good position; no focal infiltrate) Allied health notes reviewed: nursing
[2018-11-17 05:57] LABS: BUN/Creatinine Ratio 30; Blood Urea Nitrogen 18 mg/dL (7-17); Calcium 9.2 mg/dL (8.4-10.2); Hemolysis Index 14
--- NOTE | 2018-11-17 06:22 | Consultation ---
PULMONARY CONSULTATION NOTE CONSULTING PHYSICIAN: Jhonny Ruvalcaba DO. REASON FOR CONSULTATION: Acute on chronic respiratory failure, frequent mucus plugging leading to arrhythmias and hypoxemia. CHIEF COMPLAINT AND HISTORY OF PRESENT ILLNESS: As follows, the patient is a 73-year-old female with past medical history significant for diagnosis of anoxic brain injury, chronic respiratory failure, chronic tracheostomy in place. Also, history of diabetes and cardiac arrest. She [facility] for evaluation of vomiting and reported hematemesis. She also was tachypneic and had had a low grade fever that fade prior to presentation. Sepsis protocol was initially initiated in the ER. She was found to have a positive gastric occult blood test. She was admitted to the hospital, made n.p.o. and a GI evaluation was placed. She has since been seen by the GI team. There was no plan for endoscopy. She was placed on double dose PPI therapy during the course of this admission; however, it seems like she has had multiple episodes of mucus plugging with resultant respiratory distress and hypoxemia hence the consult. When I stopped by to see her, she was resting peacefully in bed, breathing was a little bit of increased effort, but no overt accessory respiratory muscle use. Again, she was nonresponsive. I do not have any history of vomiting or overt aspiration. She has not had any recent fevers or chills. The above is as much of the history of presentation as I have. PAST MEDICAL HISTORY: Again significant for a diagnosis of chronic respiratory failure, history of chronic encephalopathy, history of diabetes, hypertension, chronic decubitus ulcers and chronic indwelling Blackman catheter. PAST SURGICAL HISTORY: She has had a hysterectomy in the past. She has had mastectomy. She has had a tracheostomy and percutaneous endoscopic gastrostomy tube placement. MEDICATIONS: She was on at the time I stopped by to see her were reviewed. Pertinent medications included the following: She was on Tylenol 650 mg p.o. q. 4 hours p.r.n. mild pain or fevers, Inez 7.5/325 one tablet p.o. q. 4 hours p.r.n. moderate pain, DuoNeb nebulizer treatments t.i.d., aspirin 81 mg p.o. daily, baclofen 10 mg p.o. b.i.d., p.r.n. Dulcolax, Robinul 1 mg p.o. b.i.d., Levsin or hyoscyamine 0.125 mg sublingual q. 4 hours p.r.n. excessive secretions, Lantus insulin 10 units subcutaneous at bedtime, Prevacid 30 mg via feeding tube b.i.d., Ativan 1 mg p.o. q. 4 hours p.r.n. agitation, morphine sulfate 5 mg p.o. q. 4 hours p.r.n. severe pain and Valtrex 1 gram p.o. q. 12 hours. ALLERGIES: No known drug allergies. DIET: Well-built lady, acute weight loss, again history is unknown. FAMILY AND SOCIAL HISTORY: [facility] resident. No current alcohol, tobacco, or illicit drug use or abuse. Remote history is unknown. REVIEW OF SYSTEMS: Unobtainable secondary to patient's medical and mental condition. Since she has been here, no gross hematochezia has been reported. She had the hematemesis in the Emergency Room. No witnessed seizures. Review of systems otherwise unobtainable. PHYSICAL EXAMINATION: VITAL SIGNS: At presentation in the Emergency Room, review of vital signs shows that she had a low-grade fever of 99.7 degrees Fahrenheit, pulse of 106, respiratory rate of 26, blood pressure 117/71, O2 sats were 94%, inspired oxygen concentration at that time was not recorded. When I stopped by to see her, O2 sats were 98% that was on T collar 35% FiO2. GENERAL: Petite elderly looking, chronically ill-looking black female. Normocephalic, resting in the bed with mildly increased respiratory effort at rest. HEAD, EYES, EARS, NOSE, THROAT: She is anicteric. No conjunctival erythema. Oropharynx is dry. Her lips are partially stuck together. Midline tracheostomy tube is in place. No obvious large volume secretions. No bleeding. Stoma is clean. No gross jugular venous distention, no thyromegaly. Grossly, no palpable lymph nodes in the supraclavicular or submandibular lymph node chains. LUNGS: Auscultation of both lung gleason, diminished bilateral breath sounds, occasional referred upper airway sounds, scant basilar rhonchi, no wheezing. HEART: Heart sounds 1 and 2 are heard. They were regular in rate and rhythm at the time of my evaluation. She did have a systolic murmur. ABDOMEN: Soft. Bowel sounds are positive, nontender. PEG tube is in place. No bleeding. No palpable hepatosplenomegaly. EXTREMITIES: Without overt digital clubbing or cyanosis. No pedal edema. I believe she had a heel ulcer. NEUROLOGIC: She is nonresponsive, encephalopathic, opens eyes spontaneously. She has contractures in particular the lower extremities, left lower extremity in particular, but really to all extremities. She has nonspastic paralysis and there were no spontaneous movements to her extremities. SKIN: Has poor turgor without overt cellulitis or rash. LABORATORY DATA: From my review are as follows: Admission white cell count was 10,200, hemoglobin 12.4, hematocrit 37.7, platelet count 334. No band forms. INR was 1.09. Serum sodium was 142, potassium 3.8, chloride 94, bicarbonate 31, BUN 41, creatinine 0.9, glucose is 149. Lactic acid was 2.2 at presentation. Liver function tests essentially within normal limits. Urinalysis showed large leukocyte esterase and 63 white cells per high power field. Arterial blood gas was done on the , it showed a pH of 7.42, pCO2 of 43, pO2 of 106 that was on 2 liters nasal cannula. Microbiology studies: Sputum grew Proteus, Providencia. Urine culture was no growth. Blood cultures no growth to date. Chest x-ray was done at presentation and I have reviewed the chest x-ray, essentially perhaps mild interstitial edema. I see some clips in the right upper lateral chest wall, probably related to mastectomy. Tracheostomy tube is in place, in good position, no pneumothorax, no gross bony fracture. Another chest x-ray done during this admission shows smaller lung volumes. It is a lordotic film and suggestion of increased interstitial markings and suggestion of widened mediastinum, but again lordotic film. ASSESSMENT AND PLAN: 1. Acute on chronic hypoxemic respiratory failure. 2. Acute gastrointestinal bleed. 3. History of diabetes. 4. Chronic encephalopathy. 5. Anoxic encephalopathy. 6. Oropharyngeal dysphagia. PLAN: I do feel that there are multiple mucus plugging events that are probably related to the thick oropharyngeal secretions and likely tracheal secretions that she has. I will go ahead and make institute a few changes while watching her closely. We will discontinue her Robinul. We will leave the Levsin as a p.r.n. dose. Her BUN and creatinine does suggest an element of intravascular volume depletion, but certainly improved since presentation. Most recent BMP showed a BUN of 27 and a creatinine of 0.8. I will put her on half NS at about 50 mL per hour for 1 liter and just gently rehydrate her to try and reduce the thick secretions in light of CHF history and cautious with the volume hydration. We will continue to maintain aspiration precautions through trachea. Continue other care by the attending/other physicians and wean supplemental oxygen to keep sats greater than or equal to about 90%. Thank you very much for the consult Dr. Ruvalcaba. We will follow along and make further recommendations as picture progresses/becomes clearer. JOB# [id number] KEN/JENNIFER RODRIGUEZ
[2018-11-17] MEDS: DUONEB *Not for PRN Use IH SCH ×3 (08:36→19:31)
[2018-11-17] MEDS: LIORESAL PO SCH ×2 (09:32→22:24)
[2018-11-17] MEDS: SENOKOT PO SCH ×2 (09:33→22:24)
[2018-11-17] MEDS: BABY ASPIRIN PO SCH (09:33)
[2018-11-17] MEDS: PREVACID SOLUTAB FEEDTUBE SCH ×2 (09:33→22:24)
--- NOTE | 2018-11-17 17:22 | Progress Note ---
Assessment and Plan - Patient Problems (1) GI bleed Current Visit: Yes Status: Resolved Plan to address problem: GI consult. resolved. (2) Dehydration Current Visit: No Status: Acute Plan to address problem: Hydration. KVO. (3) UTI (urinary tract infection) Current Visit: Yes Status: Acute Plan to address problem: IV ABX. Follow ID rec. No new issues. (4) UTI (urinary tract infection) Current Visit: No Status: Chronic Plan to address problem: IV ABX. see above. she will be finishing valtrex , as prescribed. (5) Sepsis Current Visit: Yes Status: Acute Qualifiers: Sepsis type: sepsis due to unspecified organism Qualified Code(s): A41.9 - Sepsis, unspecified organism Plan to address problem: Due to strange org in the tracheal asp Follow current IV ABX, as per ID, and put patient on contact Isolation.as recommended by ID. continue same. resolved. Subjective Date of service: 11/17/18 Principal diagnosis: GI bleed Interval history: Patient seen/examined, resting in bed, labs/cultures reviewed, sputum with Gram positive cocci, stool / treachial asp tested positive for blood. GI on the case. Will add vanco to ABX. Patient seen/examined, resting in bed, labs reviewed, tracheal asp culture growing strange org, and will consult ID. Patient seen/examined, resting in bed, still awaiting ID rec ,so as to decide on disposition. Patient seen/examined, resting in bed, consult notes, labs, reviewed, and highly appreciated. Discharge will be as per their recommendations, when appropriate. Patient seen/examined, resting in bed, labs/notes reviewed, clinically , same. Will continue to follow ID rec as per disposition. Patient seen/examined, resting in bed, labs /notes reviewed, continue to follow ID. Patient seen/examined, resting in bed, labs reviewed, as well as notes. No new issues at this time, will continue to follow ID rec. will do new labs for am. Patient seen/examined, resting in bed, records/notes reviewed.will continue to follow ID.D/c back to DC ,when ok with ID. Patient seen/examined, resting in bed, notes reviewed. Will call the DC, see if patient can come back, otherwise, the casey saw operator will have to arrange d/c on thursday. Patient seen, with late entry, no new labs. She had some episode, earlier, and addressed. Patient seen/examined, resting in bed, labs reviewed. Patient seen/examined, resting in bed, as per the nurses report, Patient had episodes of elevated heart rate , with hypoxia, recurrent mucus plugs.If she is d/c, she will come right back to the ER ,if this was to happen at the DC. Will get plumonary to see her , and advice on safe disposition.Mucomyst tried. Patient seen/examined, resting in bed, consult note reviewed, and appreciated. Patient seen/examined, resting in bed, labs reviewed, will restart d/c plans. Objective - Constitutional Vitals: Vital Signs - 12hr 11/17/18 11/17/18 11/17/18 08:11 08:36 08:40 Temperature 99.3 F Pulse Rate 93 H Pulse Rate [ 90 Anterior Bilateral] Pulse Rate [ From Monitor] Respiratory 18 Rate Respiratory 18 Rate [Anterior Bilateral] Blood Pressure 93/54 O2 Sat by Pulse 95 98 Oximetry O2 Sat by Pulse Oximetry [ Assessment] 11/17/18 11/17/18 11/17/18 08:42 08:50 10:00 Temperature Pulse Rate Pulse Rate [ 92 H Anterior Bilateral] Pulse Rate [ 93 H From Monitor] Respiratory 18 Rate Respiratory 18 Rate [Anterior Bilateral] Blood Pressure O2 Sat by Pulse 95 Oximetry O2 Sat by Pulse 98 Oximetry [ Assessment] 11/17/18 14:47 Temperature 99.3 F Pulse Rate 98 H Pulse Rate [ Anterior Bilateral] Pulse Rate [ From Monitor] Respiratory 18 Rate Respiratory Rate [Anterior Bilateral] Blood Pressure 102/53 O2 Sat by Pulse 99 Oximetry O2 Sat by Pulse Oximetry [ Assessment] General appearance: Present: well-nourished - EENT Eyes: PERRL, EOM intact ENT: hearing intact, clear oral mucosa Ears: bilateral: normal - Neck Neck: supple, normal ROM - Respiratory Respiratory: bilateral: diminished, rhonchi - Breasts Breasts: deferred - Cardiovascular Rhythm: regular Heart Sounds: Present: S1 & S2. Absent: gallop, rub Extremities: pulses intact, No edema, normal color, Full ROM - Gastrointestinal General gastrointestinal: Present: soft, non-tender, non-distended, normal bowel sounds Rectal Exam: deferred - Genitourinary Female genitourinary: deferred - Integumentary Integumentary: clear, warm, dry - Musculoskeletal Musculoskeletal: 1, strength equal bilaterally - Labs CBC & Chem 7: 11/14/18 07:46 11/17/18 04:47 Labs: Abnormal lab results 11/16/18 11/16/18 11/17/18 Range/Units 17:56 23:14 04:47 BUN 18 H (7-17) mg/dL Creatinine 0.6 L (0.7-1.2) mg/dL Glucose 111 H (65-100) mg/dL POC Glucose 123 H 122 H (70-105) 11/17/18 11/17/18 Range/Units 05:34 11:42 BUN (7-17) mg/dL Creatinine (0.7-1.2) mg/dL Glucose (65-100) mg/dL POC Glucose 137 H 135 H (70-105) Medications & Allergies - Medications Allergies/Adverse Reactions: Allergies No Known Allergies Allergy (Unverified 09/30/13 14:18) Home Medications: Home Medications Medication Instructions Recorded Confirmed Last Taken Type Glycopyrrolate [Robinul] 1 mg PO BID 07/29/17 11/03/18 Unknown History Ipratropium/Albuterol Sulfate 1 ampul IH Q4HR 07/29/17 11/03/18 Unknown History [DUONEB *Not for PRN Use*] Famotidine [Pepcid] 20 mg PO BID #60 tablet 08/07/17 11/03/18 Unknown Rx Acetaminophen [Acetaminophen 650 mg ID Q6H PRN 11/03/18 11/03/18 Unknown History SUPPOS] Acetaminophen [Tylenol] 650 mg PO Q4H PRN 11/03/18 11/03/18 Unknown History Aspirin [Aspirin BABY CHEW TAB] 81 mg PO QDAY 11/03/18 11/03/18 Unknown History Baclofen [Lioresal] 10 mg PO BID 11/03/18 11/03/18 Unknown History Bisacodyl [Dulcolax suppos] 10 mg ID QDAY PRN 11/03/18 11/03/18 Unknown History Cranberry Fruit Concentrate 450 mg PO BID 11/03/18 11/03/18 Unknown History [Cranberry] Glucagon (Human Recomb) [Glucagen] 1 mg IM Q24H PRN 11/03/18 11/03/18 Unknown History HYDROcodone/APAP 7.5-325 [[place] 1 each PO Q8HR PRN 11/03/18 11/03/18 Unknown History 7.5/325] Hyoscyamine Sulfate [Hyoscyamine 0.125 mg PO Q4H PRN 11/03/18 11/03/18 Unknown History Rapdis 0.125 mg] Insulin Glargine [Lantus] 10 unit SUB-Q QHS 11/03/18 11/03/18 Unknown History LORazepam [Ativan] 1 mg PO Q4H PRN 11/03/18 11/03/18 Unknown History Magnesium Hydroxide [Milk of 30 ml PO Q3D 11/03/18 11/03/18 Unknown History Magnesia] Morphine Concentrate [MORPHINE 0.25 ml PO Q4HR PRN 11/03/18 11/03/18 Unknown History Conc 20 MG/ML ORAL LIQ] Promethazine [Phenergan] 25 mg PO Q4H PRN 11/03/18 11/03/18 Unknown History Promethazine [Phenergan] 25 mg PO Q8HR PRN 11/03/18 11/03/18 Unknown History Promethazine [Phenergan] 25 mg ID Q4H PRN 11/03/18 11/03/18 Unknown History Sennosides Tab [Senokot] 17.2 mg PO BID 11/03/18 11/03/18 Unknown History Active Medications: Generic Name Dose Route Start Last Admin Trade Name Freq PRN Reason Stop Dose Admin Acetaminophen 650 mg 11/03/18 19:43 11/06/18 17:44 Tylenol PO 650 mg Q4H PRN Administration Pain, Mild (1-3) Acetaminophen 650 mg 11/03/18 20:00 11/11/18 18:21 Tylenol ID 650 mg Q4H PRN Administration Pain, Mild (1-3) Acetaminophen/Hydrocodone Bitart 1 each 11/03/18 19:37 11/13/18 21:24 [place] 7.5/325 PO 1 each Q4H PRN Administration Pain, Moderate (4-6) Albuterol 2.5 mg 11/05/18 11:00 Proventil IH Q3HRT PRN Shortness Of Breath Albuterol/Ipratropium 1 ampul 11/05/18 14:00 11/17/18 08:36 Duoneb *Not For Prn Use* IH 1 ampul TIDRT TIMMY Administration Lipase/Protease/Amylase 1 each 11/04/18 08:09 Pancreazdomingo Mccray 10,500 Unit FEEDTUBE PRN PRN For Clogged Feeding Tube Aspirin 81 mg 11/04/18 10:00 11/17/18 09:33 Baby Aspirin PO 81 mg QDAY TIMMY Administration Baclofen 10 mg 11/03/18 22:00 11/17/18 09:32 Lioresal PO 10 mg BID TIMMY Administration Bisacodyl 10 mg 11/03/18 19:18 Dulcolax ID QDAY PRN Constipation Glucagon 1 mg 11/03/18 19:18 Glucagen IM Q24H PRN Hypoglycemia Hyoscyamine 0.125 mg 11/03/18 19:49 Levsin Sl SL Q4H PRN EXCESSIVE SECRETION Insulin Glargine 10 units 11/03/18 22:00 11/16/18 23:08 Lantus SUB-Q 10 units QHS TIMMY Administration Lansoprazole 30 mg 11/04/18 22:00 11/17/18 09:33 Prevacid Solutab FEEDTUBE 30 mg BID TIMMY Administration Lorazepam 1 mg 11/03/18 19:18 Ativan PO Q4H PRN Anxiety/Agitation Magnesium Hydroxide 30 ml 11/03/18 20:00 11/15/18 22:28 Milk Of Magnesia PO 30 ml Q3D TIMMY Administration Morphine Sulfate 5 mg 11/03/18 20:00 Roxanol Concentrate PO Q4H PRN Pain , Severe (7-10) Promethazine HCl 25 mg 11/03/18 19:18 Phenergan PO Q8HR PRN Nausea Promethazine HCl 25 mg 11/03/18 19:18 Phenergan ID Q4H PRN Nausea/ Vomiting Senna 17.2 mg 11/03/18 22:00 11/17/18 09:33 Senokot PO 17.2 mg BID TIMMY Administration Simple Syrup 15 ml 11/04/18 08:09 Simple Syrup FEEDTUBE PRN PRN Hypoglycemia Simple Syrup 30 ml 11/04/18 08:09 Simple Syrup FEEDTUBE PRN PRN Hypoglycemia Sodium Bicarbonate 325 mg 11/04/18 08:09 Sodium Bicarbonate FEEDTUBE PRN PRN For Clogged Feeding Tube
[2018-11-17] MEDS: LANTUS SUB-Q SCH (22:39)
--- NOTE | 2018-11-18 08:08 | Progress Note ---
Assessment and Plan 73-year-old female with anoxic brain injury, longterm resident, chronic respiratory failure status post tracheostomy and PEG tube, previous history of cardiac arrest Chronic respiratory failure s/p trachesotomy Positive respiratory culture and now with respiratory distress UTI Hypernatremia Acute on chronic metabolic encephalopathy Sacral decubitus GPR Bacteremia: likely contaminant. / bottles positive. -Trach care, airway clearance, secretion management -Bronchodilators per protocol -Off loading, mobility program -Antibiotics per ID -Supplemental oxygen to keep O2 sats>90% -Enteral feeding, aspiration precautions -VTE prophylaxis Discussed care plan with her daughter who was at the bedside All her questions were answered Subjective Date of service: 11/18/18 Principal diagnosis: GI bleed Interval history: Patient is seen today for: chronic respiratory failure, s/p tracheostomy, acute metabolic encephalopathy, Seen and examined at bedside; 24hour events reviewed; nursing and respiratory care staff consulted; no adverse overnight events reported to me; Objective - Exam Narrative Exam: General: Somnolent. Nonverbal, s/p tracheosotmy to ATP, whitish secretions--strong cough Head, Ears, Nose: Normocephalic, atraumatic. External ears, nose normal Eyes: Conjunctivae/corneas clear. No icterus. No ptosis. Neck: trach + zarate secretions Oral: unable to examine Cardiovascular: RRR Respiratory: CTA charan GI: Soft, non-tender; bowel sounds normal. +PEG Musculoskeletal: left foot ulcer small no infected Skin: Multiple round Superficial buttock wounds present along with a central sacral decubitus ulcer Neurological: non verbal, contracted extremities Vital Signs - 12hr 11/17/18 11/17/18 11/18/18 20:37 22:00 00:00 Temperature 98.8 F Pulse Rate 107 H Pulse Rate [ 105 H From Monitor] Respiratory 18 18 Rate Blood Pressure 115/53 O2 Sat by Pulse 96 100 Oximetry O2 Sat by Pulse 98 Oximetry [ Assessment] 11/18/18 01:54 Temperature 97.9 F Pulse Rate 86 Pulse Rate [ From Monitor] Respiratory 16 Rate Blood Pressure 108/49 O2 Sat by Pulse 98 Oximetry O2 Sat by Pulse Oximetry [ Assessment] CBC and BMP: 11/14/18 07:46 11/17/18 04:47 ABG, PT/INR, D-dimer: ABG POC ABG pH 7.431 (7.35-7.45) 11/11/18 21:44 POC ABG pCO2 38.7 (35-45) 11/11/18 21:44 POC ABG pO2 125 (80-105) H 11/11/18 21:44 POC ABG HCO3 25.8 (22-26 mml/L) 11/11/18 21:44 POC ABG Total CO2 27 (23-27mmol/L) 11/11/18 21:44 POC ABG O2 Sat 99 11/11/18 21:44 PT/INR, D-dimer PT 13.8 Sec. (12.2-14.9) 11/02/18 23:54 INR 1.09 (0.87-1.13) 11/02/18 23:54 Abnormal lab findings: Abnormal Labs 11/02/18 11/02/18 11/02/18 23:42 23:42 23:54 RBC Hgb Hct MCV 78 L MCH 26 L RDW 18.8 H Lymph % (Auto) 11.3 L [place] % (Auto) Lymph # Seg Neutrophils % 83.0 H Seg Neutrophils # 8.5 H POC ABG pO2 Sodium Potassium Chloride 94.4 L Carbon Dioxide 31 H BUN 41 H Creatinine Glucose 149 H POC Glucose Lactic Acid 2.20 H* Calcium 10.4 H Albumin Urine pH Urine WBC (Auto) 11/02/18 11/03/18 11/03/18 23:54 02:38 20:39 RBC Hgb Hct MCV MCH RDW Lymph % (Auto) [place] % (Auto) Lymph # Seg Neutrophils % Seg Neutrophils # POC ABG pO2 Sodium Potassium Chloride Carbon Dioxide BUN Creatinine Glucose POC Glucose 109 H Lactic Acid Calcium Albumin 3.5 L Urine pH 8.0 H Urine WBC (Auto) 63.0 H 11/03/18 11/03/18 11/04/18 22:14 Unknown 00:43 RBC Hgb Hct MCV MCH RDW Lymph % (Auto) [place] % (Auto) Lymph # Seg Neutrophils % Seg Neutrophils # POC ABG pO2 106 H Sodium Potassium Chloride Carbon Dioxide BUN Creatinine Glucose POC Glucose 116 H Lactic Acid 2.80 H* Calcium Albumin Urine pH Urine WBC (Auto) 11/04/18 11/04/18 11/04/18 05:12 07:57 11:46 RBC Hgb Hct MCV MCH 26 L RDW 19.6 H Lymph % (Auto) 7.9 L [place] % (Auto) Lymph # 0.7 L Seg Neutrophils % 88.0 H Seg Neutrophils # POC ABG pO2 Sodium Potassium Chloride Carbon Dioxide BUN Creatinine Glucose POC Glucose 121 H 113 H Lactic Acid Calcium Albumin Urine pH Urine WBC (Auto) 11/04/18 11/05/18 11/05/18 17:14 05:44 07:43 RBC Hgb Hct MCV MCH RDW Lymph % (Auto) [place] % (Auto) Lymph # Seg Neutrophils % Seg Neutrophils # POC ABG pO2 Sodium 155 H D Potassium 3.5 L Chloride 118.0 H Carbon Dioxide BUN 26 H Creatinine Glucose POC Glucose 110 H 111 H Lactic Acid Calcium Albumin Urine pH Urine WBC (Auto) 11/05/18 11/05/18 11/06/18 16:09 20:37 17:31 RBC Hgb Hct MCV MCH RDW Lymph % (Auto) [place] % (Auto) Lymph # Seg Neutrophils % Seg Neutrophils # POC ABG pO2 Sodium Potassium Chloride Carbon Dioxide BUN Creatinine Glucose POC Glucose 117 H 139 H 120 H Lactic Acid Calcium Albumin Urine pH Urine WBC (Auto) 11/07/18 11/07/18 11/08/18 03:55 15:44 00:54 RBC Hgb Hct MCV MCH RDW Lymph % (Auto) [place] % (Auto) Lymph # Seg Neutrophils % Seg Neutrophils # POC ABG pO2 Sodium Potassium Chloride Carbon Dioxide BUN Creatinine Glucose POC Glucose 118 H 108 H 122 H Lactic Acid Calcium Albumin Urine pH Urine WBC (Auto) 11/08/18 11/08/18 11/08/18 07:10 07:44 07:44 RBC 3.63 L Hgb 9.4 L Hct 28.9 L MCV MCH 26 L RDW 19.3 H Lymph % (Auto) [place] % (Auto) 8.1 H Lymph # Seg Neutrophils % Seg Neutrophils # POC ABG pO2 Sodium Potassium Chloride 110.6 H Carbon Dioxide BUN Creatinine 0.6 L Glucose 104 H POC Glucose 109 H Lactic Acid Calcium 8.1 L Albumin Urine pH Urine WBC (Auto) 11/08/18 11/09/18 11/09/18 22:00 12:51 22:30 RBC Hgb Hct MCV MCH RDW Lymph % (Auto) [place] % (Auto) Lymph # Seg Neutrophils % Seg Neutrophils # POC ABG pO2 Sodium Potassium Chloride Carbon Dioxide BUN Creatinine Glucose POC Glucose 109 H 124 H 147 H Lactic Acid Calcium Albumin Urine pH Urine WBC (Auto) 11/10/18 11/10/18 11/11/18 06:54 13:34 00:45 RBC Hgb Hct MCV MCH RDW Lymph % (Auto) [place] % (Auto) Lymph # Seg Neutrophils % Seg Neutrophils # POC ABG pO2 Sodium Potassium Chloride Carbon Dioxide BUN Creatinine Glucose POC Glucose 138 H 118 H 114 H Lactic Acid Calcium Albumin Urine pH Urine WBC (Auto) 11/11/18 11/11/18 11/11/18 05:15 07:15 07:26 RBC Hgb 10.0 L Hct MCV MCH 26 L RDW 19.7 H Lymph % (Auto) [place] % (Auto) 8.7 H Lymph # Seg Neutrophils % Seg Neutrophils # POC ABG pO2 Sodium Potassium Chloride 107.5 H Carbon Dioxide BUN Creatinine 0.6 L Glucose 105 H POC Glucose 113 H Lactic Acid Calcium 8.2 L Albumin Urine pH Urine WBC (Auto) 11/11/18 11/11/18 11/11/18 11:29 18:20 21:44 RBC Hgb Hct MCV MCH RDW Lymph % (Auto) [place] % (Auto) Lymph # Seg Neutrophils % Seg Neutrophils # POC ABG pO2 125 H Sodium Potassium Chloride Carbon Dioxide BUN Creatinine Glucose POC Glucose 114 H 119 H Lactic Acid Calcium Albumin Urine pH Urine WBC (Auto) 11/12/18 11/12/18 11/13/18 16:28 22:46 12:49 RBC Hgb Hct MCV MCH RDW Lymph % (Auto) [place] % (Auto) Lymph # Seg Neutrophils % Seg Neutrophils # POC ABG pO2 Sodium Potassium Chloride Carbon Dioxide BUN Creatinine Glucose POC Glucose 134 H 152 H 140 H Lactic Acid Calcium Albumin Urine pH Urine WBC (Auto) 11/13/18 11/14/18 11/14/18 23:55 05:09 07:46 RBC Hgb Hct MCV MCH 26 L RDW 19.9 H Lymph % (Auto) [place] % (Auto) 13.1 H Lymph # Seg Neutrophils % Seg Neutrophils # POC ABG pO2 Sodium Potassium Chloride Carbon Dioxide BUN Creatinine Glucose POC Glucose 130 H 141 H Lactic Acid Calcium Albumin Urine pH Urine WBC (Auto) 11/14/18 11/14/18 11/14/18 07:46 11:50 19:26 RBC Hgb Hct MCV MCH RDW Lymph % (Auto) [place] % (Auto) Lymph # Seg Neutrophils % Seg Neutrophils # POC ABG pO2 Sodium Potassium Chloride Carbon Dioxide BUN 27 H Creatinine Glucose 126 H POC Glucose 136 H 117 H Lactic Acid Calcium Albumin Urine pH Urine WBC (Auto) 11/15/18 11/15/18 11/15/18 00:33 05:52 12:20 RBC Hgb Hct MCV MCH RDW Lymph % (Auto) [place] % (Auto) Lymph # Seg Neutrophils % Seg Neutrophils # POC ABG pO2 Sodium Potassium Chloride Carbon Dioxide BUN Creatinine Glucose POC Glucose 128 H 115 H 115 H Lactic Acid Calcium Albumin Urine pH Urine WBC (Auto) 11/15/18 11/15/18 11/16/18 18:07 22:24 00:15 RBC Hgb Hct MCV MCH RDW Lymph % (Auto) [place] % (Auto) Lymph # Seg Neutrophils % Seg Neutrophils # POC ABG pO2 Sodium Potassium Chloride Carbon Dioxide BUN Creatinine Glucose POC Glucose 135 H 136 H 137 H Lactic Acid Calcium Albumin Urine pH Urine WBC (Auto) 11/16/18 11/16/18 11/16/18 05:48 11:34 17:56 RBC Hgb Hct MCV MCH RDW Lymph % (Auto) [place] % (Auto) Lymph # Seg Neutrophils % Seg Neutrophils # POC ABG pO2 Sodium Potassium Chloride Carbon Dioxide BUN Creatinine Glucose POC Glucose 125 H 136 H 123 H Lactic Acid Calcium Albumin Urine pH Urine WBC (Auto) 11/16/18 11/17/18 11/17/18 23:14 04:47 05:34 RBC Hgb Hct MCV MCH RDW Lymph % (Auto) [place] % (Auto) Lymph # Seg Neutrophils % Seg Neutrophils # POC ABG pO2 Sodium Potassium Chloride Carbon Dioxide BUN 18 H Creatinine 0.6 L Glucose 111 H POC Glucose 122 H 137 H Lactic Acid Calcium Albumin Urine pH Urine WBC (Auto) 11/17/18 11/17/18 11/17/18 11:42 18:03 22:48 RBC Hgb Hct MCV MCH RDW Lymph % (Auto) [place] % (Auto) Lymph # Seg Neutrophils % Seg Neutrophils # POC ABG pO2 Sodium Potassium Chloride Carbon Dioxide BUN Creatinine Glucose POC Glucose 135 H 107 H 125 H Lactic Acid Calcium Albumin Urine pH Urine WBC (Auto)
[2018-11-18] MEDS: DUONEB *Not for PRN Use IH SCH ×3 (09:22→20:20)
--- NOTE | 2018-11-18 10:05 | Progress Note ---
Assessment and Plan - Patient Problems (1) GI bleed Current Visit: Yes Status: Resolved Plan to address problem: GI consult. resolved. (2) Dehydration Current Visit: No Status: Acute Plan to address problem: Hydration. KVO. (3) UTI (urinary tract infection) Current Visit: Yes Status: Acute Plan to address problem: IV ABX. Follow ID rec. No new issues. (4) UTI (urinary tract infection) Current Visit: No Status: Chronic Plan to address problem: IV ABX. see above. she will be finishing valtrex , as prescribed. (5) Sepsis Current Visit: Yes Status: Acute Qualifiers: Sepsis type: sepsis due to unspecified organism Qualified Code(s): A41.9 - Sepsis, unspecified organism Plan to address problem: Due to strange org in the tracheal asp Follow current IV ABX, as per ID, and put patient on contact Isolation.as recommended by ID. continue same. resolved. (6) HSV (herpes simplex virus) anogenital infection Current Visit: Yes Status: Acute Plan to address problem: patient is currently getting tx . Subjective Date of service: 11/18/18 Principal diagnosis: GI bleed Interval history: Patient seen/examined, resting in bed, labs/cultures reviewed, sputum with Gram positive cocci, stool / treachial asp tested positive for blood. GI on the case. Will add vanco to ABX. Patient seen/examined, resting in bed, labs reviewed, tracheal asp culture growing strange org, and will consult ID. Patient seen/examined, resting in bed, still awaiting ID rec ,so as to decide on disposition. Patient seen/examined, resting in bed, consult notes, labs, reviewed, and highly appreciated. Discharge will be as per their recommendations, when appropriate. Patient seen/examined, resting in bed, labs/notes reviewed, clinically , same. Will continue to follow ID rec as per disposition. Patient seen/examined, resting in bed, labs /notes reviewed, continue to follow ID. Patient seen/examined, resting in bed, labs reviewed, as well as notes. No new issues at this time, will continue to follow ID rec. will do new labs for am. Patient seen/examined, resting in bed, records/notes reviewed.will continue to follow ID.D/c back to [facility] ,when ok with ID. Patient seen/examined, resting in bed, notes reviewed. Will call the [facility], see if patient can come back, otherwise, the case worker will have to arrange d/c on thursday. Patient seen, with late entry, no new labs. She had some episode, earlier, and addressed. Patient seen/examined, resting in bed, labs reviewed. Patient seen/examined, resting in bed, as per the nurses report, Patient had e pisodes of elevated heart rate , with hypoxia, recurrent mucus plugs.If she is d/c, she will come right back to the ER ,if this was to happen at the NH. Will get plumonary to see her , and advice on safe disposition.Mucomyst tried. Patient seen/examined, resting in bed, consult note reviewed, and appreciated. Patient seen/examined, resting in bed, labs reviewed, will restart d/c plans. Patient seen, resting in bed, notes reviewed. will see if surgery can evaluate, and see even if this surgery is needed, perhaps for a later day for diverting colostomy.once ok will like to d/c back to the NH, depending on their rec. Objective - Constitutional Vitals: Vital Signs - 12hr 11/18/18 11/18/18 11/18/18 00:00 01:54 09:10 Temperature 97.9 F Pulse Rate 86 Pulse Rate [ Anterior Bilateral] Respiratory 16 Rate Respiratory Rate [Anterior Bilateral] Blood Pressure 108/49 O2 Sat by Pulse 98 Oximetry O2 Sat by Pulse 98 99 Oximetry [ Assessment] 11/18/18 11/18/18 09:22 09:31 Temperature Pulse Rate Pulse Rate [ 98 H 102 H Anterior Bilateral] Respiratory Rate Respiratory 18 18 Rate [Anterior Bilateral] Blood Pressure O2 Sat by Pulse 99 Oximetry O2 Sat by Pulse Oximetry [ Assessment] - EENT Eyes: PERRL, EOM intact ENT: hearing intact, clear oral mucosa Ears: bilateral: normal - Neck Neck: supple, normal ROM - Respiratory Respiratory: bilateral: rhonchi - Breasts Breasts: deferred - Cardiovascular Rhythm: regular Heart Sounds: Present: S1 & S2. Absent: gallop, rub Extremities: pulses intact, No edema, normal color, Full ROM - Gastrointestinal General gastrointestinal: Present: soft, non-tender, non-distended, normal bowel sounds Rectal Exam: deferred - Genitourinary Female genitourinary: deferred - Integumentary Integumentary: clear, warm, dry - Labs CBC & Chem 7: 11/14/18 07:46 11/17/18 04:47 Labs: Abnormal lab results 11/17/18 11/17/18 11/17/18 Range/Units 11:42 18:03 22:48 POC Glucose 135 H 107 H 125 H (70-105) Medications & Allergies - Medications Allergies/Adverse Reactions: Allergies No Known Allergies Allergy (Unverified 09/30/13 14:18) Home Medications: Home Medications Medication Instructions Recorded Confirmed Last Taken Type Glycopyrrolate [Robinul] 1 mg PO BID 07/29/17 11/03/18 Unknown History Ipratropium/Albuterol Sulfate 1 ampul IH Q4HR 07/29/17 11/03/18 Unknown History [DUONEB *Not for PRN Use*] Famotidine [Pepcid] 20 mg PO BID #60 tablet 08/07/17 11/03/18 Unknown Rx Acetaminophen [Acetaminophen 650 mg MA Q6H PRN 11/03/18 11/03/18 Unknown History SUPPOS] Acetaminophen [Tylenol] 650 mg PO Q4H PRN 11/03/18 11/03/18 Unknown History Aspirin [Aspirin BABY CHEW TAB] 81 mg PO QDAY 11/03/18 11/03/18 Unknown History Baclofen [Lioresal] 10 mg PO BID 11/03/18 11/03/18 Unknown History Bisacodyl [Dulcolax suppos] 10 mg MA QDAY PRN 11/03/18 11/03/18 Unknown History Cranberry Fruit Concentrate 450 mg PO BID 11/03/18 11/03/18 Unknown History [Cranberry] Glucagon (Human Recomb) [Glucagen] 1 mg IM Q24H PRN 11/03/18 11/03/18 Unknown History HYDROcodone/APAP 7.5-325 [Jamul 1 each PO Q8HR PRN 11/03/18 11/03/18 Unknown History 7.5/325] Hyoscyamine Sulfate [Hyoscyamine 0.125 mg PO Q4H PRN 11/03/18 11/03/18 Unknown History Rapdis 0.125 mg] Insulin Glargine [Lantus] 10 unit SUB-Q QHS 11/03/18 11/03/18 Unknown History LORazepam [Ativan] 1 mg PO Q4H PRN 11/03/18 11/03/18 Unknown History Magnesium Hydroxide [Milk of 30 ml PO Q3D 11/03/18 11/03/18 Unknown History Magnesia] Morphine Concentrate [MORPHINE 0.25 ml PO Q4HR PRN 11/03/18 11/03/18 Unknown History Conc 20 MG/ML ORAL LIQ] Promethazine [Phenergan] 25 mg PO Q4H PRN 11/03/18 11/03/18 Unknown History Promethazine [Phenergan] 25 mg PO Q8HR PRN 11/03/18 11/03/18 Unknown History Promethazine [Phenergan] 25 mg MA Q4H PRN 11/03/18 11/03/18 Unknown History Sennosides Tab [Senokot] 17.2 mg PO BID 11/03/18 11/03/18 Unknown History Active Medications: Generic Name Dose Route Start Last Admin Trade Name Freq PRN Reason Stop Dose Admin Acetaminophen 650 mg 11/03/18 19:43 11/06/18 17:44 Tylenol PO 650 mg Q4H PRN Administration Pain, Mild (1-3) Acetaminophen 650 mg 11/03/18 20:00 11/11/18 18:21 Tylenol MA 650 mg Q4H PRN Administration Pain, Mild (1-3) Acetaminophen/Hydrocodone Bitart 1 each 11/03/18 19:37 11/13/18 21:24 Jamul 7.5/325 PO 1 each Q4H PRN Administration Pain, Moderate (4-6) Albuterol 2.5 mg 11/05/18 11:00 Proventil IH Q3HRT PRN Shortness Of Breath Albuterol/Ipratropium 1 ampul 11/05/18 14:00 11/18/18 09:22 Duoneb *Not For Prn Use* IH 1 ampul TIDRT TIMMY Administration Lipase/Protease/Amylase 1 each 11/04/18 08:09 Jarad Mccray 10,500 Unit FEEDTUBE PRN PRN For Clogged Feeding Tube Aspirin 81 mg 11/04/18 10:00 11/17/18 09:33 Baby Aspirin PO 81 mg QDAY TIMMY Administration Baclofen 10 mg 11/03/18 22:00 11/17/18 22:24 Lioresal PO 10 mg BID TIMMY Administration Bisacodyl 10 mg 11/03/18 19:18 Dulcolax MA QDAY PRN Constipation Glucagon 1 mg 11/03/18 19:18 Glucagen IM Q24H PRN Hypoglycemia Hyoscyamine 0.125 mg 11/03/18 19:49 Levsin Sl SL Q4H PRN EXCESSIVE SECRETION Insulin Glargine 10 units 11/03/18 22:00 11/17/18 22:39 Lantus SUB-Q 10 units QHS TIMMY Administration Lansoprazole 30 mg 11/04/18 22:00 11/17/18 22:24 Prevacid Solutab FEEDTUBE 30 mg BID TIMMY Administration Lorazepam 1 mg 11/03/18 19:18 Ativan PO Q4H PRN Anxiety/Agitation Magnesium Hydroxide 30 ml 11/03/18 20:00 11/15/18 22:28 Milk Of Magnesia PO 30 ml Q3D TIMMY Administration Morphine Sulfate 5 mg 11/03/18 20:00 Roxanol Concentrate PO Q4H PRN Pain , Severe (7-10) Promethazine HCl 25 mg 11/03/18 19:18 Phenergan PO Q8HR PRN Nausea Promethazine HCl 25 mg 11/03/18 19:18 Phenergan MA Q4H PRN Nausea/ Vomiting Senna 17.2 mg 11/03/18 22:00 11/17/18 22:24 Senokot PO 17.2 mg BID TIMMY Administration Simple Syrup 15 ml 11/04/18 08:09 Simple Syrup FEEDTUBE PRN PRN Hypoglycemia Simple Syrup 30 ml 11/04/18 08:09 Simple Syrup FEEDTUBE PRN PRN Hypoglycemia Sodium Bicarbonate 325 mg 11/04/18 08:09 Sodium Bicarbonate FEEDTUBE PRN PRN For Clogged Feeding Tube
[2018-11-18] MEDS: PREVACID SOLUTAB FEEDTUBE SCH ×2 (10:59→22:03)
[2018-11-18] MEDS: BABY ASPIRIN PO SCH (10:59)
[2018-11-18] MEDS: LIORESAL PO SCH ×2 (11:01→22:03)
[2018-11-18] MEDS: SENOKOT PO SCH ×2 (11:01→22:02)
[2018-11-18] MEDS: MILK OF MAGNESIA PO SCH (22:02)
[2018-11-18] MEDS: LANTUS SUB-Q SCH (22:02)
[2018-11-19] MEDS: DUONEB *Not for PRN Use IH SCH ×4 (07:23→20:00)
[2018-11-19] MEDS: SENOKOT PO SCH ×2 (09:41→21:40)
[2018-11-19] MEDS: PREVACID SOLUTAB FEEDTUBE SCH ×2 (09:41→21:40)
[2018-11-19] MEDS: BABY ASPIRIN PO SCH (09:41)
[2018-11-19] MEDS: LIORESAL PO SCH ×2 (09:41→21:40)
--- NOTE | 2018-11-19 10:22 | Consultation ---
History of Present Illness Consult date: 11/19/18 - History of present illness History of present illness: Sacral pressure ulcer HPI: 73 yo non-conversant female with PEG tube, trach, h/o CVA, BUE and BLE contractures and grade 4 sacral pressure ulcer. Past History Past Medical History: anemia, stroke, other (as per HPI) Past Surgical History: hysterectomy, mastectomy, Other (trach/PEG) Social history: other (Lives at the [facility].) Medications and Allergies Allergies Allergy/AdvReac Type Severity Reaction Status Date / Time No Known Allergies Allergy Unverified 09/30/13 14:18 Home Medications Medication Instructions Recorded Confirmed Last Taken Type Glycopyrrolate [Robinul] 1 mg PO BID 07/29/17 11/03/18 Unknown History Ipratropium/Albuterol Sulfate 1 ampul IH Q4HR 07/29/17 11/03/18 Unknown History [DUONEB *Not for PRN Use*] Famotidine [Pepcid] 20 mg PO BID #60 tablet 08/07/17 11/03/18 Unknown Rx Acetaminophen [Acetaminophen 650 mg OK Q6H PRN 11/03/18 11/03/18 Unknown History SUPPOS] Acetaminophen [Tylenol] 650 mg PO Q4H PRN 11/03/18 11/03/18 Unknown History Aspirin [Aspirin BABY CHEW TAB] 81 mg PO QDAY 11/03/18 11/03/18 Unknown History Baclofen [Lioresal] 10 mg PO BID 11/03/18 11/03/18 Unknown History Bisacodyl [Dulcolax suppos] 10 mg OK QDAY PRN 11/03/18 11/03/18 Unknown History Cranberry Fruit Concentrate 450 mg PO BID 11/03/18 11/03/18 Unknown History [Cranberry] Glucagon (Human Recomb) [Glucagen] 1 mg IM Q24H PRN 11/03/18 11/03/18 Unknown History HYDROcodone/APAP 7.5-325 [[place] 1 each PO Q8HR PRN 11/03/18 11/03/18 Unknown History 7.5/325] Hyoscyamine Sulfate [Hyoscyamine 0.125 mg PO Q4H PRN 11/03/18 11/03/18 Unknown History Rapdis 0.125 mg] Insulin Glargine [Lantus] 10 unit SUB-Q QHS 11/03/18 11/03/18 Unknown History LORazepam [Ativan] 1 mg PO Q4H PRN 11/03/18 11/03/18 Unknown History Magnesium Hydroxide [Milk of 30 ml PO Q3D 11/03/18 11/03/18 Unknown History Magnesia] Morphine Concentrate [MORPHINE 0.25 ml PO Q4HR PRN 11/03/18 11/03/18 Unknown History Conc 20 MG/ML ORAL LIQ] Promethazine [Phenergan] 25 mg PO Q4H PRN 11/03/18 11/03/18 Unknown History Promethazine [Phenergan] 25 mg PO Q8HR PRN 11/03/18 11/03/18 Unknown History Promethazine [Phenergan] 25 mg OK Q4H PRN 11/03/18 11/03/18 Unknown History Sennosides Tab [Senokot] 17.2 mg PO BID 11/03/18 11/03/18 Unknown History Active Meds: Active Medications Acetaminophen (Tylenol) 650 mg PO Q4H PRN PRN Reason: Pain, Mild (1-3) Last Admin: 11/06/18 17:44 Dose: 650 mg Documented by: Acetaminophen (Tylenol) 650 mg OK Q4H PRN PRN Reason: Pain, Mild (1-3) Last Admin: 11/11/18 18:21 Dose: 650 mg Documented by: Acetaminophen/Hydrocodone Bitart ([place] 7.5/325) 1 each PO Q4H PRN PRN Reason: Pain, Moderate (4-6) Last Admin: 11/13/18 21:24 Dose: 1 each Documented by: Albuterol (Proventil) 2.5 mg IH Q3HRT PRN PRN Reason: Shortness Of Breath Albuterol/Ipratropium (Duoneb *Not For Prn Use*) 1 ampul IH TIDRT [facility] Last Admin: 11/19/18 07:23 Dose: 1 ampul Documented by: Lipase/Protease/Amylase (Jarad Mccray 10,500 Unit) 1 each FEEDTUBE PRN PRN PRN Reason: For Clogged Feeding Tube Aspirin (Baby Aspirin) 81 mg PO QDAY [facility] Last Admin: 11/19/18 09:41 Dose: 81 mg Documented by: Baclofen (Lioresal) 10 mg PO BID [facility] Last Admin: 11/19/18 09:41 Dose: 10 mg Documented by: Bisacodyl (Dulcolax) 10 mg OK QDAY PRN PRN Reason: Constipation Glucagon (Glucagen) 1 mg IM Q24H PRN PRN Reason: Hypoglycemia Hyoscyamine (Levsin Sl) 0.125 mg SL Q4H PRN PRN Reason: EXCESSIVE SECRETION Insulin Glargine (Lantus) 10 units SUB-Q QHS [facility] Last Admin: 11/18/18 22:02 Dose: 10 units Documented by: Lansoprazole (Prevacid Solutab) 30 mg FEEDTUBE BID [facility] Last Admin: 11/19/18 09:41 Dose: 30 mg Documented by: Lorazepam (Ativan) 1 mg PO Q4H PRN PRN Reason: Anxiety/Agitation Magnesium Hydroxide (Milk Of Magnesia) 30 ml PO Q3D [facility] Last Admin: 11/18/18 22:02 Dose: 30 ml Documented by: Morphine Sulfate (Roxanol Concentrate) 5 mg PO Q4H PRN PRN Reason: Pain , Severe (7-10) Promethazine HCl (Phenergan) 25 mg PO Q8HR PRN PRN Reason: Nausea Promethazine HCl (Phenergan) 25 mg OK Q4H PRN PRN Reason: Nausea/ Vomiting Senna (Senokot) 17.2 mg PO BID [facility] Last Admin: 11/19/18 09:41 Dose: 17.2 mg Documented by: Simple Syrup (Simple Syrup) 15 ml FEEDTUBE PRN PRN PRN Reason: Hypoglycemia Simple Syrup (Simple Syrup) 30 ml FEEDTUBE PRN PRN PRN Reason: Hypoglycemia Sodium Bicarbonate (Sodium Bicarbonate) 325 mg FEEDTUBE PRN PRN PRN Reason: For Clogged Feeding Tube Review of Systems All systems: negative Exam Vital Signs Temp Pulse Resp BP Pulse Ox 99.7 F H 106 H 26 H 117/71 94 11/02/18 23:10 11/02/18 23:10 11/02/18 23:10 11/02/18 23:10 11/02/18 23:10 - General physical appearance Positive: chronically ill - Eyes Positive: PERRL, normal occular movement - ENT Positive: normal pinna, normal nares, normal mucosa, no hearing loss, no congestion - Neck Positive: no masses, no bruits, trachea midline, no venous distension - Respiratory Positive: normal expansion (Trach tube in place), normal respiratory effort, clear to auscultation - Cardiovascular Rhythm: regular Heart Sounds: Present: S1 & S2. Absent: rub, click - Extremities Extremities: abnormal (BUE and BLE contractures) - Breasts Breasts: deferred - Abdomen Abdomen: Present: soft (PEG tube in place), bowel sounds normal. Absent: tender, distended Hernia: none - Genitourinary Female Genitourinary: deferred - Integumentary other (Grade 4, 4.5 X 4 X 3 cm sacral pressure ulcer with some necrotic muscle and SQ fat) Results - Labs 11/14/18 07:46 11/17/18 04:47 Abnormal lab results 11/18/18 11/18/18 11/18/18 Range/Units 11:46 17:58 21:35 POC Glucose 117 H 135 H 124 H (70-105) 11/19/18 Range/Units 05:48 POC Glucose 134 H (70-105) - Imaging Additional studies: Albumin 3.5 on 11/02/18. Assessment and Plan - Patient Problems (1) Pressure ulcer of sacral region, stage 4 Current Visit: Yes Status: Acute Plan to address problem: 1) Check prealbumin 2) Will discuss with pt's family as to whether they want to proceed with a diverting colostomy. Pt need not stay in the hospital while these discussions are ongoing. [facility] ([facility] on , Thu & .) and we can proceed from there.
--- NOTE | 2018-11-19 11:35 | Progress Note ---
Assessment and Plan 73-year-old female with anoxic brain injury, snf resident, chronic respiratory failure status post tracheostomy and PEG tube, previous history of cardiac arrest Chronic respiratory failure s/p trachesotomy Positive respiratory culture and now with respiratory distress UTI Hypernatremia Acute on chronic metabolic encephalopathy Sacral decubitus GPR Bacteremia: likely contaminant. / bottles positive. -Trach care, airway clearance, secretion management -Bronchodilators per protocol -Off loading, mobility program -Antibiotics per ID -Supplemental oxygen to keep O2 sats>90% -Enteral feeding, aspiration precautions -VTE prophylaxis Discussed care plan with her daughter who was at the bedside All her questions were answered Subjective Date of service: 11/19/18 Principal diagnosis: GI bleed Interval history: Patient is seen today for: chronic respiratory failure, s/p tracheostomy, acute metabolic encephalopathy, Seen and examined at bedside; 24hour events reviewed; nursing and respiratory care staff consulted; no adverse overnight events reported to me; Objective - Exam Narrative Exam: General: Somnolent. Nonverbal, s/p tracheosotmy to ATP, whitish secretions--strong cough Head, Ears, Nose: Normocephalic, atraumatic. External ears, nose normal Eyes: Conjunctivae/corneas clear. No icterus. No ptosis. Neck: trach + zarate secretions Oral: unable to examine Cardiovascular: RRR Respiratory: CTA charan GI: Soft, non-tender; bowel sounds normal. +PEG Musculoskeletal: left foot ulcer small no infected Skin: Multiple round Superficial buttock wounds present along with a central sacral decubitus ulcer Neurological: non verbal, contracted extremities Vital Signs - 12hr 11/19/18 11/19/18 11/19/18 00:05 02:36 07:24 Temperature 99.0 F Pulse Rate 97 H Pulse Rate [ 107 H Anterior Bilateral] Pulse Rate [ From Monitor] Respiratory 20 Rate Respiratory 18 Rate [Anterior Bilateral] Blood Pressure 113/63 O2 Sat by Pulse 96 97 Oximetry O2 Sat by Pulse 99 97 Oximetry [ Assessment] 11/19/18 11/19/18 11/19/18 07:49 07:50 08:18 Temperature 99.8 F H Pulse Rate 109 H Pulse Rate [ 105 H 100 H Anterior Bilateral] Pulse Rate [ From Monitor] Respiratory 22 Rate Respiratory 18 18 Rate [Anterior Bilateral] Blood Pressure 102/58 O2 Sat by Pulse 99 Oximetry O2 Sat by Pulse Oximetry [ Assessment] 11/19/18 08:47 Temperature Pulse Rate Pulse Rate [ Anterior Bilateral] Pulse Rate [ 100 H From Monitor] Respiratory 20 Rate Respiratory Rate [Anterior Bilateral] Blood Pressure O2 Sat by Pulse 100 Oximetry O2 Sat by Pulse Oximetry [ Assessment] CBC and BMP: 11/14/18 07:46 11/17/18 04:47 ABG, PT/INR, D-dimer: ABG POC ABG pH 7.431 (7.35-7.45) 11/11/18 21:44 POC ABG pCO2 38.7 (35-45) 11/11/18 21:44 POC ABG pO2 125 (80-105) H 11/11/18 21:44 POC ABG HCO3 25.8 (22-26 mml/L) 11/11/18 21:44 POC ABG Total CO2 27 (23-27mmol/L) 11/11/18 21:44 POC ABG O2 Sat 99 11/11/18 21:44 PT/INR, D-dimer PT 13.8 Sec. (12.2-14.9) 11/02/18 23:54 INR 1.09 (0.87-1.13) 11/02/18 23:54 Abnormal lab findings: Abnormal Labs 11/02/18 11/02/18 11/02/18 23:42 23:42 23:54 RBC Hgb Hct MCV 78 L MCH 26 L RDW 18.8 H Lymph % (Auto) 11.3 L [place] % (Auto) Lymph # Seg Neutrophils % 83.0 H Seg Neutrophils # 8.5 H POC ABG pO2 Sodium Potassium Chloride 94.4 L Carbon Dioxide 31 H BUN 41 H Creatinine Glucose 149 H POC Glucose Lactic Acid 2.20 H* Calcium 10.4 H Albumin Urine pH Urine WBC (Auto) 11/02/18 11/03/18 11/03/18 23:54 02:38 20:39 RBC Hgb Hct MCV MCH RDW Lymph % (Auto) [place] % (Auto) Lymph # Seg Neutrophils % Seg Neutrophils # POC ABG pO2 Sodium Potassium Chloride Carbon Dioxide BUN Creatinine Glucose POC Glucose 109 H Lactic Acid Calcium Albumin 3.5 L Urine pH 8.0 H Urine WBC (Auto) 63.0 H 11/03/18 11/03/18 11/04/18 22:14 Unknown 00:43 RBC Hgb Hct MCV MCH RDW Lymph % (Auto) [place] % (Auto) Lymph # Seg Neutrophils % Seg Neutrophils # POC ABG pO2 106 H Sodium Potassium Chloride Carbon Dioxide BUN Creatinine Glucose POC Glucose 116 H Lactic Acid 2.80 H* Calcium Albumin Urine pH Urine WBC (Auto) 11/04/18 11/04/18 11/04/18 05:12 07:57 11:46 RBC Hgb Hct MCV MCH 26 L RDW 19.6 H Lymph % (Auto) 7.9 L [place] % (Auto) Lymph # 0.7 L Seg Neutrophils % 88.0 H Seg Neutrophils # POC ABG pO2 Sodium Potassium Chloride Carbon Dioxide BUN Creatinine Glucose POC Glucose 121 H 113 H Lactic Acid Calcium Albumin Urine pH Urine WBC (Auto) 11/04/18 11/05/18 11/05/18 17:14 05:44 07:43 RBC Hgb Hct MCV MCH RDW Lymph % (Auto) [place] % (Auto) Lymph # Seg Neutrophils % Seg Neutrophils # POC ABG pO2 Sodium 155 H D Potassium 3.5 L Chloride 118.0 H Carbon Dioxide BUN 26 H Creatinine Glucose POC Glucose 110 H 111 H Lactic Acid Calcium Albumin Urine pH Urine WBC (Auto) 11/05/18 11/05/18 11/06/18 16:09 20:37 17:31 RBC Hgb Hct MCV MCH RDW Lymph % (Auto) [place] % (Auto) Lymph # Seg Neutrophils % Seg Neutrophils # POC ABG pO2 Sodium Potassium Chloride Carbon Dioxide BUN Creatinine Glucose POC Glucose 117 H 139 H 120 H Lactic Acid Calcium Albumin Urine pH Urine WBC (Auto) 11/07/18 11/07/18 11/08/18 03:55 15:44 00:54 RBC Hgb Hct MCV MCH RDW Lymph % (Auto) [place] % (Auto) Lymph # Seg Neutrophils % Seg Neutrophils # POC ABG pO2 Sodium Potassium Chloride Carbon Dioxide BUN Creatinine Glucose POC Glucose 118 H 108 H 122 H Lactic Acid Calcium Albumin Urine pH Urine WBC (Auto) 11/08/18 11/08/18 11/08/18 07:10 07:44 07:44 RBC 3.63 L Hgb 9.4 L Hct 28.9 L MCV MCH 26 L RDW 19.3 H Lymph % (Auto) [place] % (Auto) 8.1 H Lymph # Seg Neutrophils % Seg Neutrophils # POC ABG pO2 Sodium Potassium Chloride 110.6 H Carbon Dioxide BUN Creatinine 0.6 L Glucose 104 H POC Glucose 109 H Lactic Acid Calcium 8.1 L Albumin Urine pH Urine WBC (Auto) 11/08/18 11/09/18 11/09/18 22:00 12:51 22:30 RBC Hgb Hct MCV MCH RDW Lymph % (Auto) [place] % (Auto) Lymph # Seg Neutrophils % Seg Neutrophils # POC ABG pO2 Sodium Potassium Chloride Carbon Dioxide BUN Creatinine Glucose POC Glucose 109 H 124 H 147 H Lactic Acid Calcium Albumin Urine pH Urine WBC (Auto) 11/10/18 11/10/18 11/11/18 06:54 13:34 00:45 RBC Hgb Hct MCV MCH RDW Lymph % (Auto) [place] % (Auto) Lymph # Seg Neutrophils % Seg Neutrophils # POC ABG pO2 Sodium Potassium Chloride Carbon Dioxide BUN Creatinine Glucose POC Glucose 138 H 118 H 114 H Lactic Acid Calcium Albumin Urine pH Urine WBC (Auto) 11/11/18 11/11/18 11/11/18 05:15 07:15 07:26 RBC Hgb 10.0 L Hct MCV MCH 26 L RDW 19.7 H Lymph % (Auto) [place] % (Auto) 8.7 H Lymph # Seg Neutrophils % Seg Neutrophils # POC ABG pO2 Sodium Potassium Chloride 107.5 H Carbon Dioxide BUN Creatinine 0.6 L Glucose 105 H POC Glucose 113 H Lactic Acid Calcium 8.2 L Albumin Urine pH Urine WBC (Auto) 11/11/18 11/11/18 11/11/18 11:29 18:20 21:44 RBC Hgb Hct MCV MCH RDW Lymph % (Auto) [place] % (Auto) Lymph # Seg Neutrophils % Seg Neutrophils # POC ABG pO2 125 H Sodium Potassium Chloride Carbon Dioxide BUN Creatinine Glucose POC Glucose 114 H 119 H Lactic Acid Calcium Albumin Urine pH Urine WBC (Auto) 11/12/18 11/12/18 11/13/18 16:28 22:46 12:49 RBC Hgb Hct MCV MCH RDW Lymph % (Auto) [place] % (Auto) Lymph # Seg Neutrophils % Seg Neutrophils # POC ABG pO2 Sodium Potassium Chloride Carbon Dioxide BUN Creatinine Glucose POC Glucose 134 H 152 H 140 H Lactic Acid Calcium Albumin Urine pH Urine WBC (Auto) 11/13/18 11/14/18 11/14/18 23:55 05:09 07:46 RBC Hgb Hct MCV MCH 26 L RDW 19.9 H Lymph % (Auto) [place] % (Auto) 13.1 H Lymph # Seg Neutrophils % Seg Neutrophils # POC ABG pO2 Sodium Potassium Chloride Carbon Dioxide BUN Creatinine Glucose POC Glucose 130 H 141 H Lactic Acid Calcium Albumin Urine pH Urine WBC (Auto) 11/14/18 11/14/18 11/14/18 07:46 11:50 19:26 RBC Hgb Hct MCV MCH RDW Lymph % (Auto) [place] % (Auto) Lymph # Seg Neutrophils % Seg Neutrophils # POC ABG pO2 Sodium Potassium Chloride Carbon Dioxide BUN 27 H Creatinine Glucose 126 H POC Glucose 136 H 117 H Lactic Acid Calcium Albumin Urine pH Urine WBC (Auto) 11/15/18 11/15/18 11/15/18 00:33 05:52 12:20 RBC Hgb Hct MCV MCH RDW Lymph % (Auto) [place] % (Auto) Lymph # Seg Neutrophils % Seg Neutrophils # POC ABG pO2 Sodium Potassium Chloride Carbon Dioxide BUN Creatinine Glucose POC Glucose 128 H 115 H 115 H Lactic Acid Calcium Albumin Urine pH Urine WBC (Auto) 11/15/18 11/15/18 11/16/18 18:07 22:24 00:15 RBC Hgb Hct MCV MCH RDW Lymph % (Auto) [place] % (Auto) Lymph # Seg Neutrophils % Seg Neutrophils # POC ABG pO2 Sodium Potassium Chloride Carbon Dioxide BUN Creatinine Glucose POC Glucose 135 H 136 H 137 H Lactic Acid Calcium Albumin Urine pH Urine WBC (Auto) 11/16/18 11/16/18 11/16/18 05:48 11:34 17:56 RBC Hgb Hct MCV MCH RDW Lymph % (Auto) [place] % (Auto) Lymph # Seg Neutrophils % Seg Neutrophils # POC ABG pO2 Sodium Potassium Chloride Carbon Dioxide BUN Creatinine Glucose POC Glucose 125 H 136 H 123 H Lactic Acid Calcium Albumin Urine pH Urine WBC (Auto) 11/16/18 11/17/18 11/17/18 23:14 04:47 05:34 RBC Hgb Hct MCV MCH RDW Lymph % (Auto) [place] % (Auto) Lymph # Seg Neutrophils % Seg Neutrophils # POC ABG pO2 Sodium Potassium Chloride Carbon Dioxide BUN 18 H Creatinine 0.6 L Glucose 111 H POC Glucose 122 H 137 H Lactic Acid Calcium Albumin Urine pH Urine WBC (Auto) 11/17/18 11/17/18 11/17/18 11:42 18:03 22:48 RBC Hgb Hct MCV MCH RDW Lymph % (Auto) [place] % (Auto) Lymph # Seg Neutrophils % Seg Neutrophils # POC ABG pO2 Sodium Potassium Chloride Carbon Dioxide BUN Creatinine Glucose POC Glucose 135 H 107 H 125 H Lactic Acid Calcium Albumin Urine pH Urine WBC (Auto) 11/18/18 11/18/18 11/18/18 11:46 17:58 21:35 RBC Hgb Hct MCV MCH RDW Lymph % (Auto) [place] % (Auto) Lymph # Seg Neutrophils % Seg Neutrophils # POC ABG pO2 Sodium Potassium Chloride Carbon Dioxide BUN Creatinine Glucose POC Glucose 117 H 135 H 124 H Lactic Acid Calcium Albumin Urine pH Urine WBC (Auto) 11/19/18 05:48 RBC Hgb Hct MCV MCH RDW Lymph % (Auto) [place] % (Auto) Lymph # Seg Neutrophils % Seg Neutrophils # POC ABG pO2 Sodium Potassium Chloride Carbon Dioxide BUN Creatinine Glucose POC Glucose 134 H Lactic Acid Calcium Albumin Urine pH Urine WBC (Auto)
--- NOTE | 2018-11-19 16:03 | Discharge Summary ---
Providers - Providers Date of Admission: 11/03/18 03:36 Date of discharge: 11/19/18 Attending physician: NANDA WADDELL 11/03/18 01:19 Consult to Physician [CONS] Stat Comment: Dr. Calle spoke with Dr. Paulson @ [id number] Consulting Provider: GABE PAULSON Physician Instructions: Reason For Exam: GI bleed 11/03/18 07:38 Consult to Wound/ET Nurse [CONS] Urgent Reason For Exam: wound eval 11/03/18 19:17 Consult to Dietitian/Nutrition [CONS] Routine Physician Instructions: Reason For Exam: Reason for Consult: Write/Manage Tube Feeding 11/05/18 18:57 Consult to Physician [CONS] Routine Comment: Consulting Provider: BARRON RAMIREZ Physician Instructions: Reason For Exam: Multi org trachial asp infection. 11/12/18 19:41 Consult to Case Management [CONS] Routine Services Needed at Discharge: Other Notified:: case management Comment:: [facility] 11/15/18 18:57 Consult to Physician [CONS] Routine Comment: Consulting Provider: DAVID FIERRO Physician Instructions: Reason For Exam: Frequent mucus plug, laeding to arrythmia, hypoxia 11/18/18 10:07 Consult to Physician [CONS] Routine Comment: spoke with dr. prabhakar/ radha Consulting Provider: MANUEL PRABHAKAR Physician Instructions: Reason For Exam: diverting colostomy Primary care physician: [facility], Hospitalization Reason for admission: GI/bleed Condition: Stable Hospital course: Patient seen/examined, resting in bed, records reviewed.case d/w General surgery, who states, patient could follow up at the wound care center, and any further need for any surgery, will be addressed there.Patient was seen by ID, and their rec was followed.case was d/w the leather case finisher, and [facility], and [facility]. Disposition: [id number] [facility] - Discharge Diagnoses (1) GI bleed Status: Resolved (2) Dehydration Status: Resolved (3) UTI (urinary tract infection) Status: Resolved (4) UTI (urinary tract infection) Status: Resolved (5) Sepsis Status: Acute Qualifiers: Sepsis type: sepsis due to unspecified organism Qualified Code(s): A41.9 - Sepsis, unspecified organism (6) HSV (herpes simplex virus) anogenital infection Status: Acute Core Measure Documentation - Palliative Care Palliative Care/ Comfort Measures: Not Applicable - Core Measures Any of the following diagnoses?: none Exam - Constitutional Vitals: Temp Pulse Resp BP Pulse Ox 99.8 F H 106 H 18 102/58 100 11/19/18 07:49 11/19/18 12:31 11/19/18 12:31 11/19/18 07:49 11/19/18 10:00 General appearance: Present: no acute distress - EENT Eyes: Present: PERRL ENT: hearing intact, clear oral mucosa - Neck Neck: Present: supple, normal ROM - Respiratory Respiratory effort: normal Respiratory: bilateral: CTA - Cardiovascular Heart Sounds: Present: S1 & S2. Absent: rub, click - Extremities Extremities: pulses symmetrical, No edema Peripheral Pulses: within normal limits - Abdominal General gastrointestinal: Present: soft, non-tender, non-distended, normal bowel sounds Female genitourinary: Present: deferred - Rectal Rectal Exam: deferred - Integumentary Integumentary: Present: clear, warm, dry - Musculoskeletal Musculoskeletal: gait normal, strength equal bilaterally - Psychiatric Psychiatric: appropriate mood/affect, intact judgment & insight - Neurologic Neurologic: CNII-XII intact, moves all extremities Plan Activity: fall precautions, other (patient is bed bound.) Diet: other (As previous, prior to comming to the hospital.) Follow up with: DANIE ASH MD [Primary Care Provider] - 3-5 Days Forms: Accompanied Note
[2018-11-19] MEDS: LANTUS SUB-Q SCH (21:40)
[2018-11-20] MEDS: DUONEB *Not for PRN Use IH SCH ×3 (08:00→19:54)
--- NOTE | 2018-11-20 12:05 | Progress Note ---
Assessment and Plan - Patient Problems (1) GI bleed Current Visit: Yes Status: Resolved Plan to address problem: GI consult. resolved. (2) Dehydration Current Visit: No Status: Resolved Plan to address problem: Hydration. KVO. (3) UTI (urinary tract infection) Current Visit: Yes Status: Resolved Plan to address problem: IV ABX. Follow ID rec. No new issues. (4) UTI (urinary tract infection) Current Visit: No Status: Resolved Plan to address problem: IV ABX. see above. she will be finishing valtrex , as prescribed. (5) Sepsis Current Visit: Yes Status: Acute Qualifiers: Sepsis type: sepsis due to unspecified organism Qualified Code(s): A41.9 - Sepsis, unspecified organism Plan to address problem: Due to strange org in the tracheal asp Follow current IV ABX, as per ID, and put patient on contact Isolation.as recommended by ID. continue same. resolved. (6) HSV (herpes simplex virus) anogenital infection Current Visit: Yes Status: Acute Plan to address problem: patient is currently getting tx . Subjective Date of service: 11/20/18 Principal diagnosis: GI bleed Interval history: Patient seen/examined, resting in bed, labs/cultures reviewed, sputum with Gram positive cocci, stool / treachial asp tested positive for blood. GI on the case. Will add vanco to ABX. Patient seen/examined, resting in bed, labs reviewed, tracheal asp culture growing strange org, and will consult ID. Patient seen/examined, resting in bed, still awaiting ID rec ,so as to decide on disposition. Patient seen/examined, resting in bed, consult notes, labs, reviewed, and highly appreciated. Discharge will be as per their recommendations, when appropriate. Patient seen/examined, resting in bed, labs/notes reviewed, clinically , same. Will continue to follow ID rec as per disposition. Patient seen/examined, resting in bed, labs /notes reviewed, continue to follow ID. Patient seen/examined, resting in bed, labs reviewed, as well as notes. No new issues at this time, will continue to follow ID rec. will do new labs for am. Patient seen/examined, resting in bed, records/notes reviewed.will continue to follow ID.D/c back to [facility] ,when ok with ID. Patient seen/examined, resting in bed, notes reviewed. Will call the [facility], see if patient can come back, otherwise, the rn field case manager will have to arrange d/c on thursday. Patient seen, with late entry, no new labs. She had some episode, earlier, and addressed. Patient seen/examined, resting in bed, labs reviewed. Patient seen/examined, resting in bed, as per the nurses report, Patient had episodes of elevated heart rate , with hypoxia, recurrent mucus plugs.If she is d/c, she will come right back to the ER ,if this was to happen at the NH. Will get plumonary to see her , and advice on safe disposition.Mucomyst tried. Patient seen/examined, resting in bed, consult note reviewed, and appreciated. Patient seen/examined, resting in bed, labs reviewed, will restart d/c plans. Patient seen, resting in bed, notes reviewed. will see if surgery can evaluate, and see even if this surgery is needed, perhaps for a later day for diverting colostomy.once ok will like to d/c back to the NH, depending on their rec. Patient seen/examined, resting in bed, labs /records reviewed, NH unable to take patient back till thursday. Objective - Constitutional Vitals: Vital Signs - 12hr 11/20/18 11/20/18 11/20/18 02:14 08:00 08:11 Temperature 98.2 F Pulse Rate 99 H Pulse Rate [ 104 H Anterior Bilateral] Respiratory 20 Rate Respiratory 18 Rate [Anterior Bilateral] Blood Pressure 99/53 O2 Sat by Pulse 97 96 Oximetry O2 Sat by Pulse 96 Oximetry [ Assessment] 11/20/18 11/20/18 11/20/18 08:12 08:39 08:43 Temperature 99.0 F Pulse Rate Pulse Rate [ 102 H Anterior Bilateral] Respiratory 22 Rate Respiratory 18 Rate [Anterior Bilateral] Blood Pressure 87/51 115/61 O2 Sat by Pulse Oximetry O2 Sat by Pulse Oximetry [ Assessment] General appearance: Present: no acute distress - EENT Eyes: PERRL, EOM intact ENT: hearing intact, clear oral mucosa Ears: bilateral: normal - Neck Neck: supple, normal ROM - Respiratory Respiratory effort: normal Respiratory: bilateral: CTA - Breasts Breasts: deferred - Cardiovascular Rhythm: regular Heart Sounds: Present: S1 & S2. Absent: gallop, rub Extremities: pulses intact, No edema, normal color, Full ROM - Gastrointestinal General gastrointestinal: Present: soft, non-tender, non-distended, normal bowel sounds Rectal Exam: deferred - Genitourinary Female genitourinary: deferred - Integumentary Integumentary: clear, warm, dry - Musculoskeletal Musculoskeletal: 1, strength equal bilaterally - Neurologic Neurologic: moves all extremities - Labs CBC & Chem 7: 11/14/18 07:46 11/17/18 04:47 Labs: Abnormal lab results 11/19/18 11/19/18 11/20/18 Range/Units 17:57 21:52 06:27 POC Glucose 135 H 136 H 139 H (70-105) 11/20/18 Range/Units 11:22 POC Glucose 118 H (70-105) Medications & Allergies - Medications Allergies/Adverse Reactions: Allergies No Known Allergies Allergy (Unverified 09/30/13 14:18) Home Medications: Home Medications Medication Instructions Recorded Confirmed Last Taken Type Glycopyrrolate [Robinul] 1 mg PO BID 07/29/17 11/03/18 Unknown History Ipratropium/Albuterol Sulfate 1 ampul IH Q4HR 07/29/17 11/03/18 Unknown History [DUONEB *Not for PRN Use*] Famotidine [Pepcid] 20 mg PO BID #60 tablet 08/07/17 11/03/18 Unknown Rx Acetaminophen [Acetaminophen 650 mg FL Q6H PRN 11/03/18 11/03/18 Unknown History SUPPOS] Acetaminophen [Tylenol] 650 mg PO Q4H PRN 11/03/18 11/03/18 Unknown History Aspirin [Aspirin BABY CHEW TAB] 81 mg PO QDAY 11/03/18 11/03/18 Unknown History Baclofen [Lioresal] 10 mg PO BID 11/03/18 11/03/18 Unknown History Bisacodyl [Dulcolax suppos] 10 mg FL QDAY PRN 11/03/18 11/03/18 Unknown History Cranberry Fruit Concentrate 450 mg PO BID 11/03/18 11/03/18 Unknown History [Cranberry] Glucagon (Human Recomb) [Glucagen] 1 mg IM Q24H PRN 11/03/18 11/03/18 Unknown History HYDROcodone/APAP 7.5-325 [[place] 1 each PO Q8HR PRN 11/03/18 11/03/18 Unknown History 7.5-325 mg TAB] Hyoscyamine Sulfate [Hyoscyamine 0.125 mg PO Q4H PRN 11/03/18 11/03/18 Unknown History Rapdis 0.125 mg] Insulin Glargine [Lantus VIAL] 10 unit SUB-Q QHS 11/03/18 11/03/18 Unknown History LORazepam [Ativan] 1 mg PO Q4H PRN 11/03/18 11/03/18 Unknown History Magnesium Hydroxide [Milk of 30 ml PO Q3D 11/03/18 11/03/18 Unknown History Magnesia] Morphine Concentrate [MORPHINE 0.25 ml PO Q4HR PRN 11/03/18 11/03/18 Unknown History Conc 20 MG/ML ORAL LIQ] Promethazine [Phenergan SUPPOS] 25 mg FL Q4H PRN 11/03/18 11/03/18 Unknown History Promethazine [Phenergan] 25 mg PO Q4H PRN 11/03/18 11/03/18 Unknown History Promethazine [Phenergan] 25 mg PO Q8HR PRN 11/03/18 11/03/18 Unknown History Sennosides Tab [Senokot] 17.2 mg PO BID 11/03/18 11/03/18 Unknown History ALBUTEROL NEB's [Proventil 0.083% 2.5 mg IH Q3HRT PRN nebu 11/19/18 Unknown Rx NEBS] Acetaminophen [Acetaminophen TAB] 650 mg PO Q4H PRN tablet 11/19/18 Unknown Rx Hyoscyamine Subl [Levsin Sl 0.125 0.125 mg SL Q4H PRN tablet 11/19/18 Unknown Rx TAB] Lansoprazole Solutab [Prevacid 30 mg FEEDTUBE BID tab.rapdis 11/19/18 Unknown Rx Solutab] Lipase/Protease/Amylase [Pancreaze 1 each FEEDTUBE PRN PRN capsule 11/19/18 Unknown Rx 10,500 Unit] Morphine Concentrate [MORPHINE 5 mg PO Q4H PRN oral.liqd 11/19/18 Unknown Rx Conc 20 MG/ML ORAL LIQ] Simple Syrup 30 ml FEEDTUBE PRN PRN oral.liqd 11/19/18 Unknown Rx Sodium Bicarbonate 325 mg FEEDTUBE PRN PRN tablet 11/19/18 Unknown Rx Active Medications: Generic Name Dose Route Start Last Admin Trade Name Freq PRN Reason Stop Dose Admin Acetaminophen 650 mg 11/03/18 19:43 11/06/18 17:44 Tylenol PO 650 mg Q4H PRN Administration Pain, Mild (1-3) Acetaminophen 650 mg 11/03/18 20:00 11/11/18 18:21 Tylenol FL 650 mg Q4H PRN Administration Pain, Mild (1-3) Acetaminophen/Hydrocodone Bitart 1 each 11/03/18 19:37 11/13/18 21:24 [place] 7.5/325 PO 1 each Q4H PRN Administration Pain, Moderate (4-6) Albuterol 2.5 mg 11/05/18 11:00 Proventil IH Q3HRT PRN Shortness Of Breath Albuterol/Ipratropium 1 ampul 11/05/18 14:00 11/20/18 08:00 Duoneb *Not For Prn Use* IH 1 ampul TIDRT TIMMY Administration Lipase/Protease/Amylase 1 each 11/04/18 08:09 Pancreaze 10,500 Unit FEEDTUBE PRN PRN For Clogged Feeding Tube Aspirin 81 mg 11/04/18 10:00 11/19/18 09:41 Baby Aspirin PO 81 mg QDAY TIMMY Administration Baclofen 10 mg 11/03/18 22:00 11/19/18 21:40 Lioresal PO 10 mg BID TIMMY Administration Bisacodyl 10 mg 11/03/18 19:18 Dulcolax FL QDAY PRN Constipation Glucagon 1 mg 11/03/18 19:18 Glucagen IM Q24H PRN Hypoglycemia Hyoscyamine 0.125 mg 11/03/18 19:49 Levsin Sl SL Q4H PRN EXCESSIVE SECRETION Insulin Glargine 10 units 11/03/18 22:00 11/19/18 21:40 Lantus SUB-Q 10 units QHS TIMMY Administration Lansoprazole 30 mg 11/04/18 22:00 11/19/18 21:40 Prevacid Solutab FEEDTUBE 30 mg BID TIMMY Administration Lorazepam 1 mg 11/03/18 19:18 Ativan PO Q4H PRN Anxiety/Agitation Magnesium Hydroxide 30 ml 11/03/18 20:00 11/18/18 22:02 Milk Of Magnesia PO 30 ml Q3D TIMMY Administration Morphine Sulfate 5 mg 11/03/18 20:00 Roxanol Concentrate PO Q4H PRN Pain , Severe (7-10) Promethazine HCl 25 mg 11/03/18 19:18 Phenergan PO Q8HR PRN Nausea Promethazine HCl 25 mg 11/03/18 19:18 Phenergan FL Q4H PRN Nausea/ Vomiting Senna 17.2 mg 11/03/18 22:00 11/19/18 21:40 Senokot PO 17.2 mg BID TIMMY Administration Simple Syrup 15 ml 11/04/18 08:09 Simple Syrup FEEDTUBE PRN PRN Hypoglycemia Simple Syrup 30 ml 11/04/18 08:09 Simple Syrup FEEDTUBE PRN PRN Hypoglycemia Sodium Bicarbonate 325 mg 11/04/18 08:09 Sodium Bicarbonate FEEDTUBE PRN PRN For Clogged Feeding Tube
[2018-11-20] MEDS: PREVACID SOLUTAB FEEDTUBE SCH ×2 (12:16→22:37)
[2018-11-20] MEDS: LIORESAL PO SCH ×2 (12:49→22:38)
[2018-11-20] MEDS: SENOKOT PO SCH ×2 (12:49→22:37)
[2018-11-20] MEDS: BABY ASPIRIN PO SCH (12:49)
--- NOTE | 2018-11-20 12:50 | Progress Note ---
Assessment and Plan Acute on chronic hypoxemic respiratory failure. Acute gastrointestinal bleed. History of diabetes. Chronic encephalopathy. Anoxic encephalopathy. Oropharyngeal dysphagia - continue bronchodilators with pulmonary hygiene per RT - continue supplemental oxygen to keep O2 sat's > 90% - continue aspiration precautions - gentle rehydration - continue glycemic control with SSI for target BG < 180 mg/dl - PT/OT - mobility protocols for pressure ulcer prophylaxis - continue other care per attending ... re-evaluate in am & prn Subjective Date of service: 11/20/18 Principal diagnosis: Ac on ch hypoxemic resp failure; Mucus plugging; Ac. GI bleed; DM II Interval history: Patient is seen today for: Acute on chronic hypoxemic respiratory failure; Acute gastrointestinal bleed; History of diabetes; Chronic encephalopathy (Anoxic); Oropharyngeal dysphagia Seen and examined at bedside; 24hour events reviewed; nursing and respiratory care staff consulted; no adverse overnight events reported to me; resting peacefully in bed; remains on t-piece; no emesis or overt aspiration; AMS is persistent Objective Vital Signs - 12hr 11/20/18 11/20/18 11/20/18 02:14 08:00 08:11 Temperature 98.2 F Pulse Rate 99 H Pulse Rate [ 104 H Anterior Bilateral] Respiratory 20 Rate Respiratory 18 Rate [Anterior Bilateral] Blood Pressure 99/53 O2 Sat by Pulse 97 96 Oximetry O2 Sat by Pulse 96 Oximetry [ Assessment] 11/20/18 11/20/18 11/20/18 08:12 08:39 08:43 Temperature 99.0 F Pulse Rate Pulse Rate [ 102 H Anterior Bilateral] Respiratory 22 Rate Respiratory 18 Rate [Anterior Bilateral] Blood Pressure 87/51 115/61 O2 Sat by Pulse Oximetry O2 Sat by Pulse Oximetry [ Assessment] Constitutional: no acute distress, other (elderly looking AAF, normocephalic with mildly increased resp effort at rest) Eyes: non-icteric ENT: oropharynx moist Neck: supple, no lymphadenopathy, no JVD, other (+ midline tracheostomy tube) Effort: mildly labored Ascultation: Bilateral: rhonchi (scant) Percussion: Bilateral: not dull Cardiovascular: regular rate and rhythm, murmur noted (EDIE) Gastrointestinal: normoactive bowel sounds, soft, non-tender, non-distended Integumentary: normal Extremities: no cyanosis, no edema, pulses normal, no ischemia or petechiae Neurologic: pupils equal and round, unable to assess, other (+ pedal contractures) Psychiatric: other (encephalopathic) CBC and BMP: 11/14/18 07:46 11/17/18 04:47 ABG, PT/INR, D-dimer: ABG POC ABG pH 7.431 (7.35-7.45) 11/11/18 21:44 POC ABG pCO2 38.7 (35-45) 11/11/18 21:44 POC ABG pO2 125 (80-105) H 11/11/18 21:44 POC ABG HCO3 25.8 (22-26 mml/L) 11/11/18 21:44 POC ABG Total CO2 27 (23-27mmol/L) 11/11/18 21:44 POC ABG O2 Sat 99 11/11/18 21:44 PT/INR, D-dimer PT 13.8 Sec. (12.2-14.9) 11/02/18 23:54 INR 1.09 (0.87-1.13) 11/02/18 23:54 Abnormal lab findings: Abnormal Labs 11/02/18 11/02/18 11/02/18 23:42 23:42 23:54 RBC Hgb Hct MCV 78 L MCH 26 L RDW 18.8 H Lymph % (Auto) 11.3 L [place] % (Auto) Lymph # Seg Neutrophils % 83.0 H Seg Neutrophils # 8.5 H POC ABG pO2 Sodium Potassium Chloride 94.4 L Carbon Dioxide 31 H BUN 41 H Creatinine Glucose 149 H POC Glucose Lactic Acid 2.20 H* Calcium 10.4 H Albumin Urine pH Urine WBC (Auto) 11/02/18 11/03/18 11/03/18 23:54 02:38 20:39 RBC Hgb Hct MCV MCH RDW Lymph % (Auto) [place] % (Auto) Lymph # Seg Neutrophils % Seg Neutrophils # POC ABG pO2 Sodium Potassium Chloride Carbon Dioxide BUN Creatinine Glucose POC Glucose 109 H Lactic Acid Calcium Albumin 3.5 L Urine pH 8.0 H Urine WBC (Auto) 63.0 H 11/03/18 11/03/18 11/04/18 22:14 Unknown 00:43 RBC Hgb Hct MCV MCH RDW Lymph % (Auto) [place] % (Auto) Lymph # Seg Neutrophils % Seg Neutrophils # POC ABG pO2 106 H Sodium Potassium Chloride Carbon Dioxide BUN Creatinine Glucose POC Glucose 116 H Lactic Acid 2.80 H* Calcium Albumin Urine pH Urine WBC (Auto) 11/04/18 11/04/18 11/04/18 05:12 07:57 11:46 RBC Hgb Hct MCV MCH 26 L RDW 19.6 H Lymph % (Auto) 7.9 L [place] % (Auto) Lymph # 0.7 L Seg Neutrophils % 88.0 H Seg Neutrophils # POC ABG pO2 Sodium Potassium Chloride Carbon Dioxide BUN Creatinine Glucose POC Glucose 121 H 113 H Lactic Acid Calcium Albumin Urine pH Urine WBC (Auto) 11/04/18 11/05/18 11/05/18 17:14 05:44 07:43 RBC Hgb Hct MCV MCH RDW Lymph % (Auto) [place] % (Auto) Lymph # Seg Neutrophils % Seg Neutrophils # POC ABG pO2 Sodium 155 H D Potassium 3.5 L Chloride 118.0 H Carbon Dioxide BUN 26 H Creatinine Glucose POC Glucose 110 H 111 H Lactic Acid Calcium Albumin Urine pH Urine WBC (Auto) 11/05/18 11/05/18 11/06/18 16:09 20:37 17:31 RBC Hgb Hct MCV MCH RDW Lymph % (Auto) [place] % (Auto) Lymph # Seg Neutrophils % Seg Neutrophils # POC ABG pO2 Sodium Potassium Chloride Carbon Dioxide BUN Creatinine Glucose POC Glucose 117 H 139 H 120 H Lactic Acid Calcium Albumin Urine pH Urine WBC (Auto) 11/07/18 11/07/18 11/08/18 03:55 15:44 00:54 RBC Hgb Hct MCV MCH RDW Lymph % (Auto) [place] % (Auto) Lymph # Seg Neutrophils % Seg Neutrophils # POC ABG pO2 Sodium Potassium Chloride Carbon Dioxide BUN Creatinine Glucose POC Glucose 118 H 108 H 122 H Lactic Acid Calcium Albumin Urine pH Urine WBC (Auto) 11/08/18 11/08/18 11/08/18 07:10 07:44 07:44 RBC 3.63 L Hgb 9.4 L Hct 28.9 L MCV MCH 26 L RDW 19.3 H Lymph % (Auto) [place] % (Auto) 8.1 H Lymph # Seg Neutrophils % Seg Neutrophils # POC ABG pO2 Sodium Potassium Chloride 110.6 H Carbon Dioxide BUN Creatinine 0.6 L Glucose 104 H POC Glucose 109 H Lactic Acid Calcium 8.1 L Albumin Urine pH Urine WBC (Auto) 11/08/18 11/09/1819 22:00 12:51 22:30 RBC Hgb Hct MCV MCH RDW Lymph % (Auto) [place] % (Auto) Lymph # Seg Neutrophils % Seg Neutrophils # POC ABG pO2 Sodium Potassium Chloride Carbon Dioxide BUN Creatinine Glucose POC Glucose 109 H 124 H 147 H Lactic Acid Calcium Albumin Urine pH Urine WBC (Auto) 11/10/18 11/10/18 11/11/18 06:54 13:34 00:45 RBC Hgb Hct MCV MCH RDW Lymph % (Auto) [place] % (Auto) Lymph # Seg Neutrophils % Seg Neutrophils # POC ABG pO2 Sodium Potassium Chloride Carbon Dioxide BUN Creatinine Glucose POC Glucose 138 H 118 H 114 H Lactic Acid Calcium Albumin Urine pH Urine WBC (Auto) 11/11/18 11/11/18 11/11/18 05:15 07:15 07:26 RBC Hgb 10.0 L Hct MCV MCH 26 L RDW 19.7 H Lymph % (Auto) [place] % (Auto) 8.7 H Lymph # Seg Neutrophils % Seg Neutrophils # POC ABG pO2 Sodium Potassium Chloride 107.5 H Carbon Dioxide BUN Creatinine 0.6 L Glucose 105 H POC Glucose 113 H Lactic Acid Calcium 8.2 L Albumin Urine pH Urine WBC (Auto) 11/11/18 11/11/18 11/11/18 11:29 18:20 21:44 RBC Hgb Hct MCV MCH RDW Lymph % (Auto) [place] % (Auto) Lymph # Seg Neutrophils % Seg Neutrophils # POC ABG pO2 125 H Sodium Potassium Chloride Carbon Dioxide BUN Creatinine Glucose POC Glucose 114 H 119 H Lactic Acid Calcium Albumin Urine pH Urine WBC (Auto) 11/12/18 11/12/18 11/13/18 16:28 22:46 12:49 RBC Hgb Hct MCV MCH RDW Lymph % (Auto) [place] % (Auto) Lymph # Seg Neutrophils % Seg Neutrophils # POC ABG pO2 Sodium Potassium Chloride Carbon Dioxide BUN Creatinine Glucose POC Glucose 134 H 152 H 140 H Lactic Acid Calcium Albumin Urine pH Urine WBC (Auto) 11/13/18 11/14/18 11/14/18 23:55 05:09 07:46 RBC Hgb Hct MCV MCH 26 L RDW 19.9 H Lymph % (Auto) [place] % (Auto) 13.1 H Lymph # Seg Neutrophils % Seg Neutrophils # POC ABG pO2 Sodium Potassium Chloride Carbon Dioxide BUN Creatinine Glucose POC Glucose 130 H 141 H Lactic Acid Calcium Albumin Urine pH Urine WBC (Auto) 11/14/18 11/14/18 11/14/18 07:46 11:50 19:26 RBC Hgb Hct MCV MCH RDW Lymph % (Auto) [place] % (Auto) Lymph # Seg Neutrophils % Seg Neutrophils # POC ABG pO2 Sodium Potassium Chloride Carbon Dioxide BUN 27 H Creatinine Glucose 126 H POC Glucose 136 H 117 H Lactic Acid Calcium Albumin Urine pH Urine WBC (Auto) 11/15/18 11/15/18 11/15/18 00:33 05:52 12:20 RBC Hgb Hct MCV MCH RDW Lymph % (Auto) [place] % (Auto) Lymph # Seg Neutrophils % Seg Neutrophils # POC ABG pO2 Sodium Potassium Chloride Carbon Dioxide BUN Creatinine Glucose POC Glucose 128 H 115 H 115 H Lactic Acid Calcium Albumin Urine pH Urine WBC (Auto) 11/15/18 11/15/18 11/16/18 18:07 22:24 00:15 RBC Hgb Hct MCV MCH RDW Lymph % (Auto) [place] % (Auto) Lymph # Seg Neutrophils % Seg Neutrophils # POC ABG pO2 Sodium Potassium Chloride Carbon Dioxide BUN Creatinine Glucose POC Glucose 135 H 136 H 137 H Lactic Acid Calcium Albumin Urine pH Urine WBC (Auto) 11/16/18 11/16/18 11/16/18 05:48 11:34 17:56 RBC Hgb Hct MCV MCH RDW Lymph % (Auto) [place] % (Auto) Lymph # Seg Neutrophils % Seg Neutrophils # POC ABG pO2 Sodium Potassium Chloride Carbon Dioxide BUN Creatinine Glucose POC Glucose 125 H 136 H 123 H Lactic Acid Calcium Albumin Urine pH Urine WBC (Auto) 11/16/18 11/17/18 11/17/18 23:14 04:47 05:34 RBC Hgb Hct MCV MCH RDW Lymph % (Auto) [place] % (Auto) Lymph # Seg Neutrophils % Seg Neutrophils # POC ABG pO2 Sodium Potassium Chloride Carbon Dioxide BUN 18 H Creatinine 0.6 L Glucose 111 H POC Glucose 122 H 137 H Lactic Acid Calcium Albumin Urine pH Urine WBC (Auto) 11/17/18 11/17/18 11/17/18 11:42 18:03 22:48 RBC Hgb Hct MCV MCH RDW Lymph % (Auto) [place] % (Auto) Lymph # Seg Neutrophils % Seg Neutrophils # POC ABG pO2 Sodium Potassium Chloride Carbon Dioxide BUN Creatinine Glucose POC Glucose 135 H 107 H 125 H Lactic Acid Calcium Albumin Urine pH Urine WBC (Auto) 11/18/18 11/18/18 11/18/18 11:46 17:58 21:35 RBC Hgb Hct MCV MCH RDW Lymph % (Auto) [place] % (Auto) Lymph # Seg Neutrophils % Seg Neutrophils # POC ABG pO2 Sodium Potassium Chloride Carbon Dioxide BUN Creatinine Glucose POC Glucose 117 H 135 H 124 H Lactic Acid Calcium Albumin Urine pH Urine WBC (Auto) 11/19/18 11/19/18 11/19/18 05:48 11:36 17:57 RBC Hgb Hct MCV MCH RDW Lymph % (Auto) [place] % (Auto) Lymph # Seg Neutrophils % Seg Neutrophils # POC ABG pO2 Sodium Potassium Chloride Carbon Dioxide BUN Creatinine Glucose POC Glucose 134 H 148 H 135 H Lactic Acid Calcium Albumin Urine pH Urine WBC (Auto) 11/19/18 11/20/18 11/20/18 21:52 06:27 11:22 RBC Hgb Hct MCV MCH RDW Lymph % (Auto) [place] % (Auto) Lymph # Seg Neutrophils % Seg Neutrophils # POC ABG pO2 Sodium Potassium Chloride Carbon Dioxide BUN Creatinine Glucose POC Glucose 136 H 139 H 118 H Lactic Acid Calcium Albumin Urine pH Urine WBC (Auto) Allied health notes reviewed: nursing
[2018-11-20] MEDS: LANTUS SUB-Q SCH (22:38)
[2018-11-21] MEDS: DUONEB *Not for PRN Use IH SCH ×3 (07:54→20:21)
[2018-11-21] MEDS: PREVACID SOLUTAB FEEDTUBE SCH ×2 (11:34→22:34)
[2018-11-21] MEDS: LIORESAL PO SCH ×2 (11:35→22:34)
[2018-11-21] MEDS: BABY ASPIRIN PO SCH (11:35)
[2018-11-21] MEDS: SENOKOT PO SCH ×2 (11:35→22:34)
--- NOTE | 2018-11-21 13:53 | Progress Note ---
Assessment and Plan Acute on chronic hypoxemic respiratory failure. Acute gastrointestinal bleed. History of diabetes. Chronic encephalopathy. Anoxic encephalopathy. Oropharyngeal dysphagia - continue bronchodilators with pulmonary hygiene per RT - continue supplemental oxygen to keep O2 sat's > 90% - continue aspiration precautions - gentle rehydration - continue glycemic control with SSI for target BG < 180 mg/dl - PT/OT - mobility protocols for pressure ulcer prophylaxis - continue other care per attending ... re-evaluate in am & prn Subjective Date of service: 11/21/18 Principal diagnosis: Ac on ch hypoxemic resp failure; Mucus plugging; Ac. GI bleed; DM II Interval history: Patient is seen today for: Acute on chronic hypoxemic respiratory failure; Acute gastrointestinal bleed; History of diabetes; Chronic encephalopathy (Anoxic); Oropharyngeal dysphagia Seen and examined at bedside; 24hour events reviewed; nursing and respiratory care staff consulted; no adverse overnight events reported to me; resting peacefully in bed; no recurrent plugging episodes; AMS is persistent; remains on T-piece Objective Vital Signs - 12hr 11/21/18 11/21/18 11/21/18 03:43 07:54 07:57 Temperature 98.4 F Pulse Rate 89 Pulse Rate [ 80 Anterior Bilateral] Pulse Rate [ From Monitor] Respiratory 16 Rate Respiratory 20 Rate [Anterior Bilateral] Blood Pressure 87/51 O2 Sat by Pulse 100 Oximetry O2 Sat by Pulse 94 Oximetry [ Assessment] 11/21/18 11/21/18 08:27 10:00 Temperature Pulse Rate Pulse Rate [ Anterior Bilateral] Pulse Rate [ 94 H From Monitor] Respiratory 20 Rate Respiratory Rate [Anterior Bilateral] Blood Pressure O2 Sat by Pulse 98 99 Oximetry O2 Sat by Pulse Oximetry [ Assessment] Constitutional: no acute distress, other (elderly looking AAF, normocephalic with mildly increased resp effort at rest) Eyes: non-icteric ENT: oropharynx moist Neck: supple, no lymphadenopathy, no JVD, other (+ midline tracheostomy tube) Effort: mildly labored Ascultation: Bilateral: rhonchi (scant) Percussion: Bilateral: not dull Cardiovascular: regular rate and rhythm, murmur noted (EDIE) Gastrointestinal: normoactive bowel sounds, soft, non-tender, non-distended Integumentary: normal Extremities: no cyanosis, no edema, pulses normal, no ischemia or petechiae Neurologic: pupils equal and round, unable to assess, other (+ pedal contractures) Psychiatric: other (encephalopathic) CBC and BMP: 11/14/18 07:46 11/17/18 04:47 ABG, PT/INR, D-dimer: ABG POC ABG pH 7.431 (7.35-7.45) 11/11/18 21:44 POC ABG pCO2 38.7 (35-45) 11/11/18 21:44 POC ABG pO2 125 (80-105) H 11/11/18 21:44 POC ABG HCO3 25.8 (22-26 mml/L) 11/11/18 21:44 POC ABG Total CO2 27 (23-27mmol/L) 11/11/18 21:44 POC ABG O2 Sat 99 11/11/18 21:44 PT/INR, D-dimer PT 13.8 Sec. (12.2-14.9) 11/02/18 23:54 INR 1.09 (0.87-1.13) 11/02/18 23:54 Abnormal lab findings: Abnormal Labs 11/02/18 11/02/18 11/02/18 23:42 23:42 23:54 RBC Hgb Hct MCV 78 L MCH 26 L RDW 18.8 H Lymph % (Auto) 11.3 L [place] % (Auto) Lymph # Seg Neutrophils % 83.0 H Seg Neutrophils # 8.5 H POC ABG pO2 Sodium Potassium Chloride 94.4 L Carbon Dioxide 31 H BUN 41 H Creatinine Glucose 149 H POC Glucose Lactic Acid 2.20 H* Calcium 10.4 H Albumin Urine pH Urine WBC (Auto) 11/02/18 11/03/18 11/03/18 23:54 02:38 20:39 RBC Hgb Hct MCV MCH RDW Lymph % (Auto) [place] % (Auto) Lymph # Seg Neutrophils % Seg Neutrophils # POC ABG pO2 Sodium Potassium Chloride Carbon Dioxide BUN Creatinine Glucose POC Glucose 109 H Lactic Acid Calcium Albumin 3.5 L Urine pH 8.0 H Urine WBC (Auto) 63.0 H 11/03/18 11/03/18 11/04/18 22:14 Unknown 00:43 RBC Hgb Hct MCV MCH RDW Lymph % (Auto) [place] % (Auto) Lymph # Seg Neutrophils % Seg Neutrophils # POC ABG pO2 106 H Sodium Potassium Chloride Carbon Dioxide BUN Creatinine Glucose POC Glucose 116 H Lactic Acid 2.80 H* Calcium Albumin Urine pH Urine WBC (Auto) 11/04/18 11/04/18 11/04/18 05:12 07:57 11:46 RBC Hgb Hct MCV MCH 26 L RDW 19.6 H Lymph % (Auto) 7.9 L [place] % (Auto) Lymph # 0.7 L Seg Neutrophils % 88.0 H Seg Neutrophils # POC ABG pO2 Sodium Potassium Chloride Carbon Dioxide BUN Creatinine Glucose POC Glucose 121 H 113 H Lactic Acid Calcium Albumin Urine pH Urine WBC (Auto) 11/04/18 11/05/18 11/05/18 17:14 05:44 07:43 RBC Hgb Hct MCV MCH RDW Lymph % (Auto) [place] % (Auto) Lymph # Seg Neutrophils % Seg Neutrophils # POC ABG pO2 Sodium 155 H D Potassium 3.5 L Chloride 118.0 H Carbon Dioxide BUN 26 H Creatinine Glucose POC Glucose 110 H 111 H Lactic Acid Calcium Albumin Urine pH Urine WBC (Auto) 11/05/18 11/05/18 11/06/18 16:09 20:37 17:31 RBC Hgb Hct MCV MCH RDW Lymph % (Auto) [place] % (Auto) Lymph # Seg Neutrophils % Seg Neutrophils # POC ABG pO2 Sodium Potassium Chloride Carbon Dioxide BUN Creatinine Glucose POC Glucose 117 H 139 H 120 H Lactic Acid Calcium Albumin Urine pH Urine WBC (Auto) 11/07/18 11/07/18 11/08/18 03:55 15:44 00:54 RBC Hgb Hct MCV MCH RDW Lymph % (Auto) [place] % (Auto) Lymph # Seg Neutrophils % Seg Neutrophils # POC ABG pO2 Sodium Potassium Chloride Carbon Dioxide BUN Creatinine Glucose POC Glucose 118 H 108 H 122 H Lactic Acid Calcium Albumin Urine pH Urine WBC (Auto) 11/08/18 11/08/18 11/08/18 07:10 07:44 07:44 RBC 3.63 L Hgb 9.4 L Hct 28.9 L MCV MCH 26 L RDW 19.3 H Lymph % (Auto) [place] % (Auto) 8.1 H Lymph # Seg Neutrophils % Seg Neutrophils # POC ABG pO2 Sodium Potassium Chloride 110.6 H Carbon Dioxide BUN Creatinine 0.6 L Glucose 104 H POC Glucose 109 H Lactic Acid Calcium 8.1 L Albumin Urine pH Urine WBC (Auto) 11/08/18 11/09/18 11/09/18 22:00 12:51 22:30 RBC Hgb Hct MCV MCH RDW Lymph % (Auto) [place] % (Auto) Lymph # Seg Neutrophils % Seg Neutrophils # POC ABG pO2 Sodium Potassium Chloride Carbon Dioxide BUN Creatinine Glucose POC Glucose 109 H 124 H 147 H Lactic Acid Calcium Albumin Urine pH Urine WBC (Auto) 11/10/18 11/10/18 11/11/18 06:54 13:34 00:45 RBC Hgb Hct MCV MCH RDW Lymph % (Auto) [place] % (Auto) Lymph # Seg Neutrophils % Seg Neutrophils # POC ABG pO2 Sodium Potassium Chloride Carbon Dioxide BUN Creatinine Glucose POC Glucose 138 H 118 H 114 H Lactic Acid Calcium Albumin Urine pH Urine WBC (Auto) 11/11/18 11/11/18 11/11/18 05:15 07:15 07:26 RBC Hgb 10.0 L Hct MCV MCH 26 L RDW 19.7 H Lymph % (Auto) [place] % (Auto) 8.7 H Lymph # Seg Neutrophils % Seg Neutrophils # POC ABG pO2 Sodium Potassium Chloride 107.5 H Carbon Dioxide BUN Creatinine 0.6 L Glucose 105 H POC Glucose 113 H Lactic Acid Calcium 8.2 L Albumin Urine pH Urine WBC (Auto) 11/11/18 11/11/18 11/11/18 11:29 18:20 21:44 RBC Hgb Hct MCV MCH RDW Lymph % (Auto) [place] % (Auto) Lymph # Seg Neutrophils % Seg Neutrophils # POC ABG pO2 125 H Sodium Potassium Chloride Carbon Dioxide BUN Creatinine Glucose POC Glucose 114 H 119 H Lactic Acid Calcium Albumin Urine pH Urine WBC (Auto) 11/12/18 11/12/18 11/13/18 16:28 22:46 12:49 RBC Hgb Hct MCV MCH RDW Lymph % (Auto) [place] % (Auto) Lymph # Seg Neutrophils % Seg Neutrophils # POC ABG pO2 Sodium Potassium Chloride Carbon Dioxide BUN Creatinine Glucose POC Glucose 134 H 152 H 140 H Lactic Acid Calcium Albumin Urine pH Urine WBC (Auto) 11/13/18 11/14/18 11/14/18 23:55 05:09 07:46 RBC Hgb Hct MCV MCH 26 L RDW 19.9 H Lymph % (Auto) [place] % (Auto) 13.1 H Lymph # Seg Neutrophils % Seg Neutrophils # POC ABG pO2 Sodium Potassium Chloride Carbon Dioxide BUN Creatinine Glucose POC Glucose 130 H 141 H Lactic Acid Calcium Albumin Urine pH Urine WBC (Auto) 11/14/18 11/14/18 11/14/18 07:46 11:50 19:26 RBC Hgb Hct MCV MCH RDW Lymph % (Auto) [place] % (Auto) Lymph # Seg Neutrophils % Seg Neutrophils # POC ABG pO2 Sodium Potassium Chloride Carbon Dioxide BUN 27 H Creatinine Glucose 126 H POC Glucose 136 H 117 H Lactic Acid Calcium Albumin Urine pH Urine WBC (Auto) 11/15/18 11/15/18 11/15/18 00:33 05:52 12:20 RBC Hgb Hct MCV MCH RDW Lymph % (Auto) [place] % (Auto) Lymph # Seg Neutrophils % Seg Neutrophils # POC ABG pO2 Sodium Potassium Chloride Carbon Dioxide BUN Creatinine Glucose POC Glucose 128 H 115 H 115 H Lactic Acid Calcium Albumin Urine pH Urine WBC (Auto) 11/15/18 11/15/18 11/16/18 18:07 22:24 00:15 RBC Hgb Hct MCV MCH RDW Lymph % (Auto) [place] % (Auto) Lymph # Seg Neutrophils % Seg Neutrophils # POC ABG pO2 Sodium Potassium Chloride Carbon Dioxide BUN Creatinine Glucose POC Glucose 135 H 136 H 137 H Lactic Acid Calcium Albumin Urine pH Urine WBC (Auto) 11/16/18 11/16/18 11/16/18 05:48 11:34 17:56 RBC Hgb Hct MCV MCH RDW Lymph % (Auto) [place] % (Auto) Lymph # Seg Neutrophils % Seg Neutrophils # POC ABG pO2 Sodium Potassium Chloride Carbon Dioxide BUN Creatinine Glucose POC Glucose 125 H 136 H 123 H Lactic Acid Calcium Albumin Urine pH Urine WBC (Auto) 11/16/18 11/17/18 11/17/18 23:14 04:47 05:34 RBC Hgb Hct MCV MCH RDW Lymph % (Auto) [place] % (Auto) Lymph # Seg Neutrophils % Seg Neutrophils # POC ABG pO2 Sodium Potassium Chloride Carbon Dioxide BUN 18 H Creatinine 0.6 L Glucose 111 H POC Glucose 122 H 137 H Lactic Acid Calcium Albumin Urine pH Urine WBC (Auto) 11/17/18 11/17/18 11/17/18 11:42 18:03 22:48 RBC Hgb Hct MCV MCH RDW Lymph % (Auto) [place] % (Auto) Lymph # Seg Neutrophils % Seg Neutrophils # POC ABG pO2 Sodium Potassium Chloride Carbon Dioxide BUN Creatinine Glucose POC Glucose 135 H 107 H 125 H Lactic Acid Calcium Albumin Urine pH Urine WBC (Auto) 0711/18/18 11/18/18 11:46 17:58 21:35 RBC Hgb Hct MCV MCH RDW Lymph % (Auto) [place] % (Auto) Lymph # Seg Neutrophils % Seg Neutrophils # POC ABG pO2 Sodium Potassium Chloride Carbon Dioxide BUN Creatinine Glucose POC Glucose 117 H 135 H 124 H Lactic Acid Calcium Albumin Urine pH Urine WBC (Auto) 11/19/18 11/19/18 11/19/18 05:48 11:36 17:57 RBC Hgb Hct MCV MCH RDW Lymph % (Auto) [place] % (Auto) Lymph # Seg Neutrophils % Seg Neutrophils # POC ABG pO2 Sodium Potassium Chloride Carbon Dioxide BUN Creatinine Glucose POC Glucose 134 H 148 H 135 H Lactic Acid Calcium Albumin Urine pH Urine WBC (Auto) 11/19/18 11/20/18 11/20/18 21:52 06:27 11:22 RBC Hgb Hct MCV MCH RDW Lymph % (Auto) [place] % (Auto) Lymph # Seg Neutrophils % Seg Neutrophils # POC ABG pO2 Sodium Potassium Chloride Carbon Dioxide BUN Creatinine Glucose POC Glucose 136 H 139 H 118 H Lactic Acid Calcium Albumin Urine pH Urine WBC (Auto) 11/20/18 11/20/18 11/21/18 18:31 22:06 06:40 RBC Hgb Hct MCV MCH RDW Lymph % (Auto) [place] % (Auto) Lymph # Seg Neutrophils % Seg Neutrophils # POC ABG pO2 Sodium Potassium Chloride Carbon Dioxide BUN Creatinine Glucose POC Glucose 114 H 125 H 135 H Lactic Acid Calcium Albumin Urine pH Urine WBC (Auto) Allied health notes reviewed: nursing
--- NOTE | 2018-11-21 14:07 | Progress Note ---
Assessment and Plan - Patient Problems (1) GI bleed Current Visit: Yes Status: Resolved Plan to address problem: GI consult. resolved. (2) UTI (urinary tract infection) Current Visit: Yes Status: Resolved Plan to address problem: IV ABX. Follow ID rec. No new issues. (3) Sepsis Current Visit: Yes Status: Acute Qualifiers: Sepsis type: sepsis due to unspecified organism Qualified Code(s): A41.9 - Sepsis, unspecified organism Plan to address problem: Due to strange org in the tracheal asp Follow current IV ABX, as per ID, and put patient on contact Isolation.as recommended by ID. continue same. resolved. (4) HSV (herpes simplex virus) anogenital infection Current Visit: Yes Status: Acute Plan to address problem: patient is currently getting tx . Subjective Date of service: 11/21/18 Principal diagnosis: Ac on ch hypoxemic resp failure; Mucus plugging; Ac. GI bleed; DM II Interval history: Patient seen/examined, resting in bed, labs/cultures reviewed, sputum with Gram positive cocci, stool / treachial asp tested positive for blood. GI on the case. Will add vanco to ABX. Patient seen/examined, resting in bed, labs reviewed, tracheal asp culture growing strange org, and will consult ID. Patient seen/examined, resting in bed, still awaiting ID rec ,so as to decide on disposition. Patient seen/examined, resting in bed, consult notes, labs, reviewed, and highly appreciated. Discharge will be as per their recommendations, when appropriate. Patient seen/examined, resting in bed, labs/notes reviewed, clinically , same. Will continue to follow ID rec as per disposition. Patient seen/examined, resting in bed, labs /notes reviewed, continue to follow ID. Patient seen/examined, resting in bed, labs reviewed, as well as notes. No new issues at this time, will continue to follow ID rec. will do new labs for am. Patient seen/examined, resting in bed, records/notes reviewed.will continue to follow ID.D/c back to [place] ,when ok with ID. Patient seen/examined, resting in bed, notes reviewed. Will call the [facility], see if patient can come back, otherwise, the clinical case manager will have to arrange d/c on thursday. Patient seen, with late entry, no new labs. She had some episode, earlier, and addressed. Patient seen/examined, resting in bed, labs reviewed. Patient seen/examined, resting in bed, as per the nurses report, Patient had episodes of elevated heart rate , with hypoxia, recurrent mucus plugs.If she is d/c, she will come right back to the ER ,if this was to happen at the NH. Will get plumonary to see her , and advice on safe disposition.Mucomyst tried. Patient seen/examined, resting in bed, consult note reviewed, and appreciated. Patient seen/examined, resting in bed, labs reviewed, will restart d/c plans. Patient seen, resting in bed, notes reviewed. will see if surgery can evaluate, and see even if this surgery is needed, perhaps for a later day for diverting colostomy.once ok will like to d/c back to the [place], depending on their rec. Patient seen/examined, resting in bed, labs /records reviewed, NH unable to take patient back till thursday. Patient seen, resting in bed, no new labs, or issues at this time. She is scheduled for d/c back to the [place] tomorrow. Objective - Constitutional Vitals: Vital Signs - 12hr 11/21/18 11/21/18 11/21/18 03:43 07:54 07:57 Temperature 98.4 F Pulse Rate 89 Pulse Rate [ 80 Anterior Bilateral] Pulse Rate [ From Monitor] Respiratory 16 Rate Respiratory 20 Rate [Anterior Bilateral] Blood Pressure 87/51 O2 Sat by Pulse 100 Oximetry O2 Sat by Pulse 94 Oximetry [ Assessment] 11/21/18 11/21/18 08:27 10:00 Temperature Pulse Rate Pulse Rate [ Anterior Bilateral] Pulse Rate [ 94 H From Monitor] Respiratory 20 Rate Respiratory Rate [Anterior Bilateral] Blood Pressure O2 Sat by Pulse 98 99 Oximetry O2 Sat by Pulse Oximetry [ Assessment] General appearance: Present: no acute distress, well-nourished - EENT Eyes: PERRL, EOM intact ENT: hearing intact, clear oral mucosa Ears: bilateral: normal - Neck Neck: supple, normal ROM - Respiratory Respiratory: bilateral: diminished - Breasts Breasts: deferred - Cardiovascular Rhythm: regular Heart Sounds: Present: S1 & S2. Absent: gallop, rub Extremities: pulses intact, No edema, normal color, Full ROM - Gastrointestinal General gastrointestinal: Present: soft, non-tender, non-distended, normal bowel sounds Rectal Exam: deferred - Genitourinary Female genitourinary: deferred - Integumentary Integumentary: clear, warm, dry - Musculoskeletal Musculoskeletal: 1, strength equal bilaterally - Neurologic Neurologic: moves all extremities - Psychiatric Psychiatric: memory intact, appropriate mood/affect, intact judgment & insight - Labs CBC & Chem 7: 11/14/18 07:46 11/17/18 04:47 Labs: Abnormal lab results 11/20/18 11/20/18 11/21/18 Range/Units 18:31 22:06 06:40 POC Glucose 114 H 125 H 135 H (70-105)
[2018-11-21] MEDS: MILK OF MAGNESIA PO SCH (22:34)
[2018-11-21] MEDS: LANTUS SUB-Q SCH (22:46)
[2018-11-22] MEDS: DUONEB *Not for PRN Use IH SCH (07:47)
[2018-11-22] MEDS: SENOKOT PO SCH (09:02)
[2018-11-22] MEDS: PREVACID SOLUTAB FEEDTUBE SCH (09:03)
[2018-11-22] MEDS: LIORESAL PO SCH (09:03)
[2018-11-22] MEDS: BABY ASPIRIN PO SCH (09:03)
--- NOTE | 2018-11-22 13:55 | Progress Note ---
Assessment and Plan Patient resting on trach collar, FIO2 28% and O2 saturation 94%.No acute respiratory distress.Patient afebrile. B/P 105/55. - Patient Problems (1) Cardiopulmonary arrest Status: Resolved Plan to address problem: H/O Cardiopulmonary arrest. Presently resting on T tube, FIO2 28%, O2 saturation 94%. (2) Pressure ulcer of sacral region, stage 4 Status: Acute Plan to address problem: Wound care. (3) Respiratory failure Status: Acute Qualifiers: Respiratory failure complication: hypoxia Plan to address problem: S/P tracheostomy and on T tube ,FIO2 28% and O2 saturation 94%. Albuterol/atrovent aerosol treatments q 6 hours. SCDs Continue Prevacid. Subjective Date of service: 11/22/18 Principal diagnosis: Ac on ch hypoxemic resp failure; Mucus plugging; Ac. GI bleed; DM II Interval history: Patient resting on trach collar, FIO2 28% and O2 saturation 94%.No acute respiratory distress.Patient afebrile. B/P 105/55. Objective Vital Signs - 12hr 11/22/18 11/22/18 11/22/18 02:27 02:28 04:00 Temperature 98.8 F Pulse Rate 68 98 H Pulse Rate [ Anterior Bilateral] Pulse Rate [ From Monitor] Respiratory 20 20 Rate Respiratory Rate [Anterior Bilateral] Blood Pressure 98/56 O2 Sat by Pulse 90 99 96 Oximetry O2 Sat by Pulse Oximetry [ Assessment] 11/22/18 11/22/18 11/22/18 07:47 07:48 07:59 Temperature 98.7 F Pulse Rate 96 H Pulse Rate [ 104 H 105 H Anterior Bilateral] Pulse Rate [ From Monitor] Respiratory 18 Rate Respiratory 18 18 Rate [Anterior Bilateral] Blood Pressure 105/55 O2 Sat by Pulse 94 Oximetry O2 Sat by Pulse 100 Oximetry [ Assessment] 11/22/18 09:49 Temperature Pulse Rate Pulse Rate [ Anterior Bilateral] Pulse Rate [ 96 H From Monitor] Respiratory 20 Rate Respiratory Rate [Anterior Bilateral] Blood Pressure O2 Sat by Pulse 94 Oximetry O2 Sat by Pulse Oximetry [ Assessment] Constitutional: no acute distress, other (Not responding to verbal stimuli.) Eyes: non-icteric ENT: oropharynx moist Neck: supple, no lymphadenopathy, no JVD, other (+ midline tracheostomy tube) Effort: mildly labored Ascultation: Bilateral: rhonchi (scant) Percussion: Bilateral: not dull Cardiovascular: regular rate and rhythm, murmur noted (EDIE) Gastrointestinal: normoactive bowel sounds, soft, non-tender, non-distended Integumentary: normal Extremities: no cyanosis, no edema, pulses normal, no ischemia or petechiae Neurologic: pupils equal and round, unable to assess, other (+ pedal contractures) Psychiatric: other (encephalopathic) CBC and BMP: 11/14/18 07:46 11/17/18 04:47 ABG, PT/INR, D-dimer: ABG POC ABG pH 7.431 (7.35-7.45) 11/11/18 21:44 POC ABG pCO2 38.7 (35-45) 11/11/18 21:44 POC ABG pO2 125 (80-105) H 11/11/18 21:44 POC ABG HCO3 25.8 (22-26 mml/L) 11/11/18 21:44 POC ABG Total CO2 27 (23-27mmol/L) 11/11/18 21:44 POC ABG O2 Sat 99 11/11/18 21:44 PT/INR, D-dimer PT 13.8 Sec. (12.2-14.9) 11/02/18 23:54 INR 1.09 (0.87-1.13) 11/02/18 23:54 Abnormal lab findings: Abnormal Labs 11/02/18 11/02/18 11/02/18 23:42 23:42 23:54 RBC Hgb Hct MCV 78 L MCH 26 L RDW 18.8 H Lymph % (Auto) 11.3 L [place] % (Auto) Lymph # Seg Neutrophils % 83.0 H Seg Neutrophils # 8.5 H POC ABG pO2 Sodium Potassium Chloride 94.4 L Carbon Dioxide 31 H BUN 41 H Creatinine Glucose 149 H POC Glucose Lactic Acid 2.20 H* Calcium 10.4 H Albumin Urine pH Urine WBC (Auto) 11/02/18 11/03/18 11/03/18 23:54 02:38 20:39 RBC Hgb Hct MCV MCH RDW Lymph % (Auto) [place] % (Auto) Lymph # Seg Neutrophils % Seg Neutrophils # POC ABG pO2 Sodium Potassium Chloride Carbon Dioxide BUN Creatinine Glucose POC Glucose 109 H Lactic Acid Calcium Albumin 3.5 L Urine pH 8.0 H Urine WBC (Auto) 63.0 H 11/03/18 11/03/18 11/04/18 22:14 Unknown 00:43 RBC Hgb Hct MCV MCH RDW Lymph % (Auto) [place] % (Auto) Lymph # Seg Neutrophils % Seg Neutrophils # POC ABG pO2 106 H Sodium Potassium Chloride Carbon Dioxide BUN Creatinine Glucose POC Glucose 116 H Lactic Acid 2.80 H* Calcium Albumin Urine pH Urine WBC (Auto) 11/04/18 11/04/18 11/04/18 05:12 07:57 11:46 RBC Hgb Hct MCV MCH 26 L RDW 19.6 H Lymph % (Auto) 7.9 L [place] % (Auto) Lymph # 0.7 L Seg Neutrophils % 88.0 H Seg Neutrophils # POC ABG pO2 Sodium Potassium Chloride Carbon Dioxide BUN Creatinine Glucose POC Glucose 121 H 113 H Lactic Acid Calcium Albumin Urine pH Urine WBC (Auto) 11/04/18 11/05/18 11/05/18 17:14 05:44 07:43 RBC Hgb Hct MCV MCH RDW Lymph % (Auto) [place] % (Auto) Lymph # Seg Neutrophils % Seg Neutrophils # POC ABG pO2 Sodium 155 H D Potassium 3.5 L Chloride 118.0 H Carbon Dioxide BUN 26 H Creatinine Glucose POC Glucose 110 H 111 H Lactic Acid Calcium Albumin Urine pH Urine WBC (Auto) 11/05/18 11/05/18 11/06/18 16:09 20:37 17:31 RBC Hgb Hct MCV MCH RDW Lymph % (Auto) [place] % (Auto) Lymph # Seg Neutrophils % Seg Neutrophils # POC ABG pO2 Sodium Potassium Chloride Carbon Dioxide BUN Creatinine Glucose POC Glucose 117 H 139 H 120 H Lactic Acid Calcium Albumin Urine pH Urine WBC (Auto) 11/07/18 11/07/18 11/08/18 03:55 15:44 00:54 RBC Hgb Hct MCV MCH RDW Lymph % (Auto) [place] % (Auto) Lymph # Seg Neutrophils % Seg Neutrophils # POC ABG pO2 Sodium Potassium Chloride Carbon Dioxide BUN Creatinine Glucose POC Glucose 118 H 108 H 122 H Lactic Acid Calcium Albumin Urine pH Urine WBC (Auto) 11/08/18 11/08/18 11/08/18 07:10 07:44 07:44 RBC 3.63 L Hgb 9.4 L Hct 28.9 L MCV MCH 26 L RDW 19.3 H Lymph % (Auto) [place] % (Auto) 8.1 H Lymph # Seg Neutrophils % Seg Neutrophils # POC ABG pO2 Sodium Potassium Chloride 110.6 H Carbon Dioxide BUN Creatinine 0.6 L Glucose 104 H POC Glucose 109 H Lactic Acid Calcium 8.1 L Albumin Urine pH Urine WBC (Auto) 11/08/18 11/09/18 11/09/18 22:00 12:51 22:30 RBC Hgb Hct MCV MCH RDW Lymph % (Auto) [place] % (Auto) Lymph # Seg Neutrophils % Seg Neutrophils # POC ABG pO2 Sodium Potassium Chloride Carbon Dioxide BUN Creatinine Glucose POC Glucose 109 H 124 H 147 H Lactic Acid Calcium Albumin Urine pH Urine WBC (Auto) 11/10/18 11/10/18 11/11/18 06:54 13:34 00:45 RBC Hgb Hct MCV MCH RDW Lymph % (Auto) [place] % (Auto) Lymph # Seg Neutrophils % Seg Neutrophils # POC ABG pO2 Sodium Potassium Chloride Carbon Dioxide BUN Creatinine Glucose POC Glucose 138 H 118 H 114 H Lactic Acid Calcium Albumin Urine pH Urine WBC (Auto) 11/11/18 11/11/18 11/11/18 05:15 07:15 07:26 RBC Hgb 10.0 L Hct MCV MCH 26 L RDW 19.7 H Lymph % (Auto) [place] % (Auto) 8.7 H Lymph # Seg Neutrophils % Seg Neutrophils # POC ABG pO2 Sodium Potassium Chloride 107.5 H Carbon Dioxide BUN Creatinine 0.6 L Glucose 105 H POC Glucose 113 H Lactic Acid Calcium 8.2 L Albumin Urine pH Urine WBC (Auto) 11/11/18 11/11/18 11/11/18 11:29 18:20 21:44 RBC Hgb Hct MCV MCH RDW Lymph % (Auto) [place] % (Auto) Lymph # Seg Neutrophils % Seg Neutrophils # POC ABG pO2 125 H Sodium Potassium Chloride Carbon Dioxide BUN Creatinine Glucose POC Glucose 114 H 119 H Lactic Acid Calcium Albumin Urine pH Urine WBC (Auto) 11/12/18 11/12/18 11/13/18 16:28 22:46 12:49 RBC Hgb Hct MCV MCH RDW Lymph % (Auto) [place] % (Auto) Lymph # Seg Neutrophils % Seg Neutrophils # POC ABG pO2 Sodium Potassium Chloride Carbon Dioxide BUN Creatinine Glucose POC Glucose 134 H 152 H 140 H Lactic Acid Calcium Albumin Urine pH Urine WBC (Auto) 11/13/18 11/14/18 11/14/18 23:55 05:09 07:46 RBC Hgb Hct MCV MCH 26 L RDW 19.9 H Lymph % (Auto) [place] % (Auto) 13.1 H Lymph # Seg Neutrophils % Seg Neutrophils # POC ABG pO2 Sodium Potassium Chloride Carbon Dioxide BUN Creatinine Glucose POC Glucose 130 H 141 H Lactic Acid Calcium Albumin Urine pH Urine WBC (Auto) 11/14/18 11/14/18 11/14/18 07:46 11:50 19:26 RBC Hgb Hct MCV MCH RDW Lymph % (Auto) [place] % (Auto) Lymph # Seg Neutrophils % Seg Neutrophils # POC ABG pO2 Sodium Potassium Chloride Carbon Dioxide BUN 27 H Creatinine Glucose 126 H POC Glucose 136 H 117 H Lactic Acid Calcium Albumin Urine pH Urine WBC (Auto) 11/15/18 11/15/18 11/15/18 00:33 05:52 12:20 RBC Hgb Hct MCV MCH RDW Lymph % (Auto) [place] % (Auto) Lymph # Seg Neutrophils % Seg Neutrophils # POC ABG pO2 Sodium Potassium Chloride Carbon Dioxide BUN Creatinine Glucose POC Glucose 128 H 115 H 115 H Lactic Acid Calcium Albumin Urine pH Urine WBC (Auto) 11/15/18 11/15/18 11/16/18 18:07 22:24 00:15 RBC Hgb Hct MCV MCH RDW Lymph % (Auto) [place] % (Auto) Lymph # Seg Neutrophils % Seg Neutrophils # POC ABG pO2 Sodium Potassium Chloride Carbon Dioxide BUN Creatinine Glucose POC Glucose 135 H 136 H 137 H Lactic Acid Calcium Albumin Urine pH Urine WBC (Auto) 11/16/18 11/16/18 11/16/18 05:48 11:34 17:56 RBC Hgb Hct MCV MCH RDW Lymph % (Auto) [place] % (Auto) Lymph # Seg Neutrophils % Seg Neutrophils # POC ABG pO2 Sodium Potassium Chloride Carbon Dioxide BUN Creatinine Glucose POC Glucose 125 H 136 H 123 H Lactic Acid Calcium Albumin Urine pH Urine WBC (Auto) 11/16/18 11/17/18 11/17/18 23:14 04:47 05:34 RBC Hgb Hct MCV MCH RDW Lymph % (Auto) [place] % (Auto) Lymph # Seg Neutrophils % Seg Neutrophils # POC ABG pO2 Sodium Potassium Chloride Carbon Dioxide BUN 18 H Creatinine 0.6 L Glucose 111 H POC Glucose 122 H 137 H Lactic Acid Calcium Albumin Urine pH Urine WBC (Auto) 11/17/18 11/17/18 11/17/18 11:42 18:03 22:48 RBC Hgb Hct MCV MCH RDW Lymph % (Auto) [place] % (Auto) Lymph # Seg Neutrophils % Seg Neutrophils # POC ABG pO2 Sodium Potassium Chloride Carbon Dioxide BUN Creatinine Glucose POC Glucose 135 H 107 H 125 H Lactic Acid Calcium Albumin Urine pH Urine WBC (Auto) 11/18/18 11/18/18 11/18/18 11:46 17:58 21:35 RBC Hgb Hct MCV MCH RDW Lymph % (Auto) [place] % (Auto) Lymph # Seg Neutrophils % Seg Neutrophils # POC ABG pO2 Sodium Potassium Chloride Carbon Dioxide BUN Creatinine Glucose POC Glucose 117 H 135 H 124 H Lactic Acid Calcium Albumin Urine pH Urine WBC (Auto) 11/19/18 11/19/18 11/19/18 05:48 11:36 17:57 RBC Hgb Hct MCV MCH RDW Lymph % (Auto) [place] % (Auto) Lymph # Seg Neutrophils % Seg Neutrophils # POC ABG pO2 Sodium Potassium Chloride Carbon Dioxide BUN Creatinine Glucose POC Glucose 134 H 148 H 135 H Lactic Acid Calcium Albumin Urine pH Urine WBC (Auto) 11/19/18 11/20/18 11/20/18 21:52 06:27 11:22 RBC Hgb Hct MCV MCH RDW Lymph % (Auto) [place] % (Auto) Lymph # Seg Neutrophils % Seg Neutrophils # POC ABG pO2 Sodium Potassium Chloride Carbon Dioxide BUN Creatinine Glucose POC Glucose 136 H 139 H 118 H Lactic Acid Calcium Albumin Urine pH Urine WBC (Auto) 11/20/18 11/20/18 11/21/18 18:31 22:06 06:40 RBC Hgb Hct MCV MCH RDW Lymph % (Auto) [place] % (Auto) Lymph # Seg Neutrophils % Seg Neutrophils # POC ABG pO2 Sodium Potassium Chloride Carbon Dioxide BUN Creatinine Glucose POC Glucose 114 H 125 H 135 H Lactic Acid Calcium Albumin Urine pH Urine WBC (Auto) 11/21/18 11/22/18 11/22/18 18:25 00:08 11:39 RBC Hgb Hct MCV MCH RDW Lymph % (Auto) [place] % (Auto) Lymph # Seg Neutrophils % Seg Neutrophils # POC ABG pO2 Sodium Potassium Chloride Carbon Dioxide BUN Creatinine Glucose POC Glucose 119 H 126 H 120 H Lactic Acid Calcium Albumin Urine pH Urine WBC (Auto) Chest x-ray: report reviewed (Trach tube is in place. No acute cardiopulmonary process.), image reviewed Allied health notes reviewed: nursing
[2018-11-22 14:38] VITALS: BP 95/57
== END 2018-11-22 15:20 | DRG 871 ==
LOC: ED 22:57 → 4A 11-03 03:36 → 2B-ACE 11-14 15:15
PROVIDERS: ADMIT Internal Medicine Hematology & Oncology; ATTEND Internal Medicine Hematology & Oncology
PROC: 4A033R1 Measurement of Arterial Saturation, Peripheral, Percutaneous Approach (ICD-10-PCS; principal; 2018-11-03)
DX: A41.9 Sepsis, unspecified organism (principal); L89.154 Pressure ulcer of sacral region, stage 4; J96.21 Acute and chronic respiratory failure with hypoxia; G93.41 Metabolic encephalopathy; K92.2 Gastrointestinal hemorrhage, unspecified; N39.0 Urinary tract infection, site not specified; E87.0 Hyperosmolality and hypernatremia; G93.1 Anoxic brain damage, not elsewhere classified; R13.12 Dysphagia, oropharyngeal phase; Z66 Do not resuscitate; E11.9 Type 2 diabetes mellitus without complications; B00.9 Herpesviral infection, unspecified; F20.9 Schizophrenia, unspecified; E86.0 Dehydration; Z90.710 Acquired absence of both cervix and uterus; Z79.899 Other long term (current) drug therapy; Z79.82 Long term (current) use of aspirin; Z79.4 Long term (current) use of insulin; Z86.74 Personal history of sudden cardiac arrest; Z86.73 Personal history of transient ischemic attack (TIA), and cerebral infarction without residual deficits; Z90.10 Acquired absence of unspecified breast and nipple; Z93.0 Tracheostomy status; Z93.1 Gastrostomy status
CPT/HCPCS: 36415; 36600; 71045; 80048; 80076; 81001; 82140; 82270; 82271; 82803; 82962; 84439; 84443; 85025; 85610; 85730; 86850; 86900; 86901; 87040; 87070; 87076; 87086; 87186; 87205; 87529; 94640; 94760; G0378; C9113; J0692; J1610; J1815; J1940; J2405; J2543; J3370; J7030; J7040; J7050

== ENCOUNTER 2019-02-06 19:41 | Inpatient (IN) | payer MEDICARE ==
[2019-02-06] MEDS ORDERED: SODIUM CHLORIDE 0.9% 1000 ML 1,000 ML IV ONE ×3 (19:54→22:40)
--- NOTE | 2019-02-06 20:01 | Emergency Department Report ---
ED GI Bleed HPI - General Stated complaint: VOMITING BLOOD Time Seen by Provider: 02/06/19 19:54 Source: EMS Mode of arrival: Stretcher Limitations: Altered Mental Status, Physical Limitation - History of Present Illness Initial comments: Patient is a 73-year-old female that presents from [facility]. EMS states that the staff at [facility] stated the patient's been having coffee ground emesis since 8:00 this morning. No fever or chills. No other sym ptoms. EMS states the patient's initial blood pressure was low and tachycardia was noted. EMS gave the patient fluids. MD complaint: coffee ground emesis -: Sudden Radiation: none Severity scale (0 -10): 0 Quality: painless Consistency: constant Improves with: none Worsens with: none - Related Data Home Medications Medication Instructions Recorded Confirmed Last Taken Glycopyrrolate [Robinul] 1 mg PO BID 07/29/17 11/03/18 Unknown Ipratropium/Albuterol Sulfate 1 ampul IH Q4HR 07/29/17 11/03/18 Unknown [DUONEB *Not for PRN Use*] Acetaminophen [Acetaminophen 650 mg IL Q6H PRN 11/03/18 11/03/18 Unknown SUPPOS] Acetaminophen [Tylenol] 650 mg PO Q4H PRN 11/03/18 11/03/18 Unknown Aspirin [Aspirin BABY CHEW TAB] 81 mg PO QDAY 11/03/18 11/03/18 Unknown Baclofen [Lioresal] 10 mg PO BID 11/03/18 11/03/18 Unknown Bisacodyl [Dulcolax suppos] 10 mg IL QDAY PRN 11/03/18 11/03/18 Unknown Cranberry Fruit Concentrate 450 mg PO BID 11/03/18 11/03/18 Unknown [Cranberry] Glucagon (Human Recomb) [Glucagen] 1 mg IM Q24H PRN 11/03/18 11/03/18 Unknown HYDROcodone/APAP 7.5-325 [Hessel 1 each PO Q8HR PRN 11/03/18 11/03/18 Unknown 7.5-325 mg TAB] Hyoscyamine Sulfate [Hyoscyamine 0.125 mg PO Q4H PRN 11/03/18 11/03/18 Unknown Rapdis 0.125 mg] Insulin Glargine [Lantus VIAL] 10 unit SUB-Q QHS 11/03/18 11/03/18 Unknown LORazepam [Ativan] 1 mg PO Q4H PRN 11/03/18 11/03/18 Unknown Magnesium Hydroxide [Milk of 30 ml PO Q3D 11/03/18 11/03/18 Unknown Magnesia] Morphine Concentrate [MORPHINE 0.25 ml PO Q4HR PRN 11/03/18 11/03/18 Unknown Conc 20 MG/ML ORAL LIQ] Promethazine [Phenergan SUPPOS] 25 mg IL Q4H PRN 11/03/18 11/03/18 Unknown Promethazine [Phenergan] 25 mg PO Q4H PRN 11/03/18 11/03/18 Unknown Promethazine [Phenergan] 25 mg PO Q8HR PRN 11/03/18 11/03/18 Unknown Sennosides Tab [Senokot] 17.2 mg PO BID 11/03/18 11/03/18 Unknown Previous Rx's Medication Instructions Recorded Last Taken Type Famotidine [Pepcid] 20 mg PO BID #60 tablet 08/07/17 Unknown Rx ALBUTEROL NEB's [Proventil 0.083% 2.5 mg IH Q3HRT PRN nebu 11/19/18 Unknown Rx NEBS] Acetaminophen [Acetaminophen TAB] 650 mg PO Q4H PRN tablet 11/19/18 Unknown Rx Hyoscyamine Subl [Levsin Sl 0.125 0.125 mg SL Q4H PRN tablet 11/19/18 Unknown Rx TAB] Lansoprazole Solutab [Prevacid 30 mg FEEDTUBE BID tab.rapdis 11/19/18 Unknown Rx Solutab] Lipase/Protease/Amylase [Pancreaze 1 each FEEDTUBE PRN PRN capsule 11/19/18 Unknown Rx 10,500 Unit] Morphine Concentrate [MORPHINE 5 mg PO Q4H PRN oral.liqd 11/19/18 Unknown Rx Conc 20 MG/ML ORAL LIQ] Simple Syrup 30 ml FEEDTUBE PRN PRN oral.liqd 11/19/18 Unknown Rx Sodium Bicarbonate 325 mg FEEDTUBE PRN PRN tablet 11/19/18 Unknown Rx Allergies Allergy/AdvReac Type Severity Reaction Status Date / Time No Known Allergies Allergy Unverified 09/30/13 14:18 ED Review of Systems ROS: Stated complaint: VOMITING BLOOD Other details as noted in HPI Comment: Unobtainable due to pts medical conditions ED Past Medical Hx - Past Medical History Previous Medical History?: Yes Hx Hypertension: Yes Hx Heart Attack/AMI: Yes (Cardiac arrest) Hx Diabetes: Yes Hx Liver Disease: No Hx Renal Disease: No Hx Seizures: No Hx Psychiatric Treatment: Yes (schizo) Hx Asthma: No Hx HIV: No Additional medical history: dysphagia, g-tube, trach, anoxic brain injury - Surgical History Past Surgical History?: Yes Hx Breast Surgery: Yes (Mastectomy 2002) Additional Surgical History: Hysterectomy 1974 - Family History Family history: no significant - Social History Smoking Status: Unknown if ever smoked Substance Use Type: None - Medications Home Medications: Home Medications Medication Instructions Recorded Confirmed Last Taken Type Glycopyrrolate [Robinul] 1 mg PO BID 07/29/17 11/03/18 Unknown History Ipratropium/Albuterol Sulfate 1 ampul IH Q4HR 07/29/17 11/03/18 Unknown History [DUONEB *Not for PRN Use*] Famotidine [Pepcid] 20 mg PO BID #60 tablet 08/07/17 11/03/18 Unknown Rx Acetaminophen [Acetaminophen 650 mg IL Q6H PRN 11/03/18 11/03/18 Unknown History SUPPOS] Acetaminophen [Tylenol] 650 mg PO Q4H PRN 11/03/18 11/03/18 Unknown History Aspirin [Aspirin BABY CHEW TAB] 81 mg PO QDAY 11/03/18 11/03/18 Unknown History Baclofen [Lioresal] 10 mg PO BID 11/03/18 11/03/18 Unknown History Bisacodyl [Dulcolax suppos] 10 mg IL QDAY PRN 11/03/18 11/03/18 Unknown History Cranberry Fruit Concentrate 450 mg PO BID 11/03/18 11/03/18 Unknown History [Cranberry] Glucagon (Human Recomb) [Glucagen] 1 mg IM Q24H PRN 11/03/18 11/03/18 Unknown History HYDROcodone/APAP 7.5-325 [Hessel 1 each PO Q8HR PRN 11/03/18 11/03/18 Unknown History 7.5-325 mg TAB] Hyoscyamine Sulfate [Hyoscyamine 0.125 mg PO Q4H PRN 11/03/18 11/03/18 Unknown History Rapdis 0.125 mg] Insulin Glargine [Lantus VIAL] 10 unit SUB-Q QHS 11/03/18 11/03/18 Unknown History LORazepam [Ativan] 1 mg PO Q4H PRN 11/03/18 11/03/18 Unknown History Magnesium Hydroxide [Milk of 30 ml PO Q3D 11/03/18 11/03/18 Unknown History Magnesia] Morphine Concentrate [MORPHINE 0.25 ml PO Q4HR PRN 11/03/18 11/03/18 Unknown History Conc 20 MG/ML ORAL LIQ] Promethazine [Phenergan SUPPOS] 25 mg IL Q4H PRN 11/03/18 11/03/18 Unknown Histo ry Promethazine [Phenergan] 25 mg PO Q4H PRN 11/03/18 11/03/18 Unknown History Promethazine [Phenergan] 25 mg PO Q8HR PRN 11/03/18 11/03/18 Unknown History Sennosides Tab [Senokot] 17.2 mg PO BID 11/03/18 11/03/18 Unknown History ALBUTEROL NEB's [Proventil 0.083% 2.5 mg IH Q3HRT PRN nebu 11/19/18 Unknown Rx NEBS] Acetaminophen [Acetaminophen TAB] 650 mg PO Q4H PRN tablet 11/19/18 Unknown Rx Hyoscyamine Subl [Levsin Sl 0.125 0.125 mg SL Q4H PRN tablet 11/19/18 Unknown Rx TAB] Lansoprazole Solutab [Prevacid 30 mg FEEDTUBE BID tab.rapdis 11/19/18 Unknown Rx Solutab] Lipase/Protease/Amylase [Pancreaze 1 each FEEDTUBE PRN PRN capsule 11/19/[address] 10,500 Unit] Morphine Concentrate [MORPHINE 5 mg PO Q4H PRN oral.liqd 11/19/18 Unknown Rx Conc 20 MG/ML ORAL LIQ] Simple Syrup 30 ml FEEDTUBE PRN PRN oral.liqd 11/19/18 Unknown Rx Sodium Bicarbonate 325 mg FEEDTUBE PRN PRN tablet 11/19/18 Unknown Rx ED Physical Exam - General Limitations: Altered Mental Status, Physical Limitation General appearance: alert, in no apparent distress - Head Head exam: Present: atraumatic, normocephalic - Eye Eye exam: Present: normal appearance, PERRL Pupils: Present: normal accommodation - ENT ENT exam: Present: mucous membranes dry - Neck Neck exam: Present: normal inspection - Respiratory Respiratory exam: Present: normal lung sounds bilaterally. Absent: respiratory distress, wheezes, rales - Cardiovascular Cardiovascular Exam: Present: regular rate, normal rhythm. Absent: systolic murmur, diastolic murmur, rubs, gallop - GI/Abdominal GI/Abdominal exam: Present: soft, normal bowel sounds, other (feeding tube noted) - Rectal Rectal exam: Present: normal inspection, normal rectal tone, heme (-) stool. Absent: heme (+) stool, black stool, bloody stool - Extremities Exam Extremities exam: Present: other (comtracted charan LE) - Back Exam Back exam: Present: normal inspection - Neurological Exam Neurological exam: Present: alert, altered - Skin Skin exam: Present: warm, dry, normal color, other (multiple decubitus ulcers noted to the sacral area of different stages). Absent: rash ED Course Vital Signs 02/06/19 02/06/19 02/06/19 20:09 20:10 20:15 Temperature 99.6 F Pulse Rate 103 H 99 H Respiratory 29 H 29 H 24 Rate Blood Pressure 87/61 O2 Sat by Pulse 96 95 99 Oximetry 02/06/19 02/06/19 02/06/19 20:31 20:45 21:01 Temperature Pulse Rate 103 H 104 H 108 H Respiratory 18 14 18 Rate Blood Pressure 87/61 87/61 87/61 O2 Sat by Pulse 97 97 99 Oximetry 02/06/19 02/06/19 02/06/19 21:15 21:30 21:45 Temperature Pulse Rate 114 H 124 H 117 H Respiratory 19 23 29 H Rate Blood Pressure 87/61 130/79 115/74 O2 Sat by Pulse 98 98 96 Oximetry 02/06/19 02/06/19 02/06/19 21:55 22:00 22:15 Temperature Pulse Rate 123 H 126 H 121 H Respiratory 29 H 36 H 35 H Rate Blood Pressure 115/74 135/63 128/69 O2 Sat by Pulse 96 96 96 Oximetry 02/06/19 02/06/19 02/06/19 22:30 22:45 23:00 Temperature Pulse Rate 120 H 117 H 120 H Respiratory 20 36 H 40 H Rate Blood Pressure 127/66 118/68 132/61 O2 Sat by Pulse 96 97 95 Oximetry 02/06/19 02/06/19 02/06/19 23:15 23:30 23:45 Temperature Pulse Rate 117 H 123 H 123 H Respiratory 27 H 33 H 18 Rate Blood Pressure 109/65 134/65 125/66 O2 Sat by Pulse 92 95 94 Oximetry 02/07/19 02/07/19 02/07/19 00:00 00:15 00:30 Temperature Pulse Rate 124 H 124 H 123 H Respiratory 17 22 10 L Rate Blood Pressure 127/65 138/69 116/64 O2 Sat by Pulse 96 96 95 Oximetry - Reevaluation(s) Reevaluation #1: Exam done with initial evaluation. Hemoccult is negative. Nurses in the room the entire exam. 02/06/19 20:03 Reevaluation #2: Patient's H&H is normal. Patient appears to be more septic versus coffee-ground emesis. It appears that the tachycardia and hypotension are secondary to sepsis and not secondary to anemia. Patient will be given fluids and antibiotics. 02/07/19 22:01 - Consultations Consultation #1: Discussed case with GI. GI states that will see the patient the morning. 02/06/19 23:49 Consultation #2: Patient's primary care patient Dr. Waddell. 02/07/19 00:09 I discussed case with Dr. WADDELL. Dr. Waddell wants patient admitted to the ICU and Bridge orders have been placed. 02/07/19 00:17 ED Medical Decision Making - Lab Data Result diagrams: 02/06/19 20:32 02/06/19 20:32 - EKG Data -: EKG Interpreted by Me EKG shows normal: sinus rhythm, axis, intervals, QRS complexes, ST-T waves Rate: tachycardia - Radiology Data Radiology results: report reviewed interpreted by me: Chief findings on chest x-ray. Trach noted. CHEST 1 VIEW 02/06/2019 10:58 PM INDICATION / CLINICAL INFORMATION: tachycardia. COMPARISON: 11/06/2018. FINDINGS: SUPPORT DEVICES: Stable tracheostomy tube position. HEART / MEDIASTINUM: No significant abnormality. LUNGS / PLEURA: No significant pulmonary or pleural abnormality. No pneumothorax. ADDITIONAL FINDINGS: No significant additional findings. IMPRESSION: 1. No acute findings. - Medical Decision Making is a 73-year-old female that presents emergency room with complaints of coffee-ground emesis as per the nursing staff at her shelter. No nausea and vomiting noted in the ER. Patient also arrived hypotensive and tachycardia. Patient given fluids and her blood pressure and heart rate improved. Patient's initial complaint was coffee ground-emesis, however the patient never had any nausea vomiting in the ER and patient's Hemoccult was negative. GI was still counsels in the ER and GI will see the patient in the morning.. Patient was also started on a Protonix drip. I attempted to lavage the PEG tube but no fluid return was noted. It appears that the patient's clinical situation is more consistent with sepsis secondary to UTI versus GI bleed. Patient was given fluids and antibiotics in the ER. Patient's labs are remarkable for elevated WBC, HERIBERTO, renal insufficiency. Patient was admitted to Dr. Waddell's service and into the ICU.. The patient was also found to have multiple decubitus ulcers of varying stages. - Differential Diagnosis GI bleed, coffee ground emesis, sepsis, UTI. Hypotension, tachycardia Critical Care Time: Yes Critical care attestation.: If time is entered above; I have spent that time in minutes in the direct care of this critically ill patient, excluding procedure time. Critical Care Time: 45 MINUTES ED Disposition Clinical Impression: Tachycardia, Coffee ground emesis, Tracheostomy dependent, Feeding by G-tube Decubitus ulcers Qualifiers: Pressure injury location: sacral region Pressure injury stage: unspecified pressure injury stage Qualified Code(s): L89.159 - Pressure ulcer of sacral region, unspecified stage Sepsis Qualifiers: Sepsis type: sepsis due to unspecified organism Sepsis acute organ dysfunction status: unspecified Qualified Code(s): A41.9 - Sepsis, unspecified organism Hypotension Qualifiers: Hypotension type: unspecified hypotension type Qualified Code(s): I95.9 - Hypotension, unspecified UTI (urinary tract infection) Qualifiers: Urinary tract infection type: catheter-associated UTI Indwelling urinary catheter type: indwelling urethral catheter Encounter type: initial encounter Qualified Code(s): T83.511A - Infection and inflammatory reaction due to indwelling urethral catheter, initial encounter Disposition: OP ADMIT IP TO THIS HOSP Is pt being admited?: Yes Does the pt Need Aspirin: No Condition: Critical Time of Disposition: 00:18
[2019-02-06 20:59] LABS: Basophils % (Auto) 0.3 % (0.0-1.8); Eosinophils # (Auto) 0.1 K/mm3 (0.0-0.4); Eosinophils % (Auto) 0.4 % (0.0-4.3); Hematocrit 35.3 % (30.3-42.9); Hemoglobin 11.8 gm/dl (10.1-14.3); Lymphocytes # (Auto) 2.1 K/mm3 (1.2-5.4); Mean Corpuscular HGB Conc 33 % (30-34); Mean Corpuscular Volume 77 fl (79-97); Monocytes # (Auto) 1.2 K/mm3 (0.0-0.8); Monocytes % (Auto) 6.6 % (0.0-7.3); Platelet Count 436 K/mm3 (140-440); Red Blood Count 4.59 M/mm3 (3.65-5.03)
[2019-02-06] MEDS ORDERED: PANTOPRAZOLE 80 MG in SODIUM CHLORIDE 0.9% 100 ML IV ONE (21:00)
[2019-02-06 21:11] LABS: Albumin 3.7 g/dL (3.9-5); Calcium 9.8 mg/dL (8.4-10.2)
[2019-02-06] MEDS ORDERED: CEFEPIME/NS 2 GM/100 ML 2 GM/100 ML BAG IV ONE (21:55)
--- NOTE | 2019-02-06 23:29 | XRay Report ---
CHEST 1 VIEW 02/06/2019 10:58 PM INDICATION / CLINICAL INFORMATION: tachycardia. COMPARISON: 11/06/2018. FINDINGS: SUPPORT DEVICES: Stable tracheostomy tube position. HEART / MEDIASTINUM: No significant abnormality. LUNGS / PLEURA: No significant pulmonary or pleural abnormality. No pneumothorax. ADDITIONAL FINDINGS: No significant additional findings. IMPRESSION: 1. No acute findings. Signer Name: Jason Glynn MD Signed: 02/06/2019 11:25 PM Workstation Name: [id number]
[2019-02-07] MEDS ORDERED: VANCOMYCIN/NS 1 GM/250 ML 1 GM/250 ML BAG IV ONE (00:03)
[2019-02-07 00:14] LABS: Bilirubin,Urine NEG (Negative); Blood,Urine NEG (Negative); Color,Urine Amber (Yellow); Triple Phosphate Crystal,Urine 3+; Urobilinogen,Urine < 2.0 mg/dL (<2.0)
[2019-02-07] MEDS ORDERED: SODIUM CHLORIDE 0.9% 500 ML 500 ML IV ONE (02:16)
[2019-02-07] MEDS: SODIUM CHLORIDE 0.9% 1000 ML 1,000 ML IV SCH ×3 (03:03→22:01)
--- NOTE | 2019-02-07 09:42 | Gastroenterology Consultation ---
History of Present Illness - Reason for Consult Consult date: 02/07/19 Coffee Ground Emesis Requesting physician: LEO LEA III - History of Present Illness Patient cannot provide history due to AMS, so obtained from chart. Patient reportedly with multiple episodes of coffee ground emesis, in ER patient without overt GI bleeding and negative rectal exam - Past Medical History Previous Medical History?: Yes Hx Hypertension: Yes Hx Heart Attack/AMI: Yes (Cardiac arrest) Hx Diabetes: Yes Hx Liver Disease: No Hx Renal Disease: No Hx Seizures: No Hx Psychiatric Treatment: Yes (schizo) Hx Asthma: No Hx HIV: No Additional medical history: dysphagia, g-tube, trach, anoxic brain injury - Surgical History Past Surgical History?: Yes Hx Breast Surgery: Yes (Mastectomy 2002) Additional Surgical History: Hysterectomy 1974 - Family History Family history: no significant - Social History Smoking Status: Unknown if ever smoked Substance Use Type: None home meds reviewed/updated/reconciled Medications and Allergies Allergies Allergy/AdvReac Type Severity Reaction Status Date / Time No Known Allergies Allergy Unverified 09/30/13 14:18 Home Medications Medication Instructions Recorded Confirmed Last Taken Type Glycopyrrolate [Robinul] 1 mg PO BID 07/29/17 11/03/18 Unknown History Ipratropium/Albuterol Sulfate 1 ampul IH Q4HR 07/29/17 11/03/18 Unknown History [DUONEB *Not for PRN Use*] Famotidine [Pepcid] 20 mg PO BID #60 tablet 08/07/17 11/03/18 Unknown Rx Acetaminophen [Acetaminophen 650 mg TN Q6H PRN 11/03/18 11/03/18 Unknown History SUPPOS] Acetaminophen [Tylenol] 650 mg PO Q4H PRN 11/03/18 11/03/18 Unknown History Aspirin [Aspirin BABY CHEW TAB] 81 mg PO QDAY 11/03/18 11/03/18 Unknown History Baclofen [Lioresal] 10 mg PO BID 11/03/18 11/03/18 Unknown History Bisacodyl [Dulcolax suppos] 10 mg TN QDAY PRN 11/03/18 11/03/18 Unknown History Cranberry Fruit Concentrate 450 mg PO BID 11/03/18 11/03/18 Unknown History [Cranberry] Glucagon (Human Recomb) [Glucagen] 1 mg IM Q24H PRN 11/03/18 11/03/18 Unknown History HYDROcodone/APAP 7.5-325 [Mcgrath 1 each PO Q8HR PRN 11/03/18 11/03/18 Unknown History 7.5-325 mg TAB] Hyoscyamine Sulfate [Hyoscyamine 0.125 mg PO Q4H PRN 11/03/18 11/03/18 Unknown History Rapdis 0.125 mg] Insulin Glargine [Lantus VIAL] 10 unit SUB-Q QHS 11/03/18 11/03/18 Unknown History LORazepam [Ativan] 1 mg PO Q4H PRN 11/03/18 11/03/18 Unknown History Magnesium Hydroxide [Milk of 30 ml PO Q3D 11/03/18 11/03/18 Unknown History Magnesia] Morphine Concentrate [MORPHINE 0.25 ml PO Q4HR PRN 11/03/18 11/03/18 Unknown History Conc 20 MG/ML ORAL LIQ] Promethazine [Phenergan SUPPOS] 25 mg TN Q4H PRN 11/03/18 11/03/18 Unknown History Promethazine [Phenergan] 25 mg PO Q4H PRN 11/03/18 11/03/18 Unknown History Promethazine [Phenergan] 25 mg PO Q8HR PRN 11/03/18 11/03/18 Unknown History Sennosides Tab [Senokot] 17.2 mg PO BID 11/03/18 11/03/18 Unknown History ALBUTEROL NEB's [Proventil 0.083% 2.5 mg IH Q3HRT PRN nebu 11/19/18 Unknown Rx NEBS] Acetaminophen [Acetaminophen TAB] 650 mg PO Q4H PRN tablet 11/19/18 Unknown Rx Hyoscyamine Subl [Levsin Sl 0.125 0.125 mg SL Q4H PRN tablet 11/19/18 Unknown Rx TAB] Lansoprazole Solutab [Prevacid 30 mg FEEDTUBE BID tab.rapdis 11/19/18 Unknown Rx Solutab] Lipase/Protease/Amylase [Pancreaze 1 each FEEDTUBE PRN PRN capsule 11/19/[address] 10,500 Unit] Morphine Concentrate [MORPHINE 5 mg PO Q4H PRN oral.liqd 11/19/18 Unknown Rx Conc 20 MG/ML ORAL LIQ] Simple Syrup 30 ml FEEDTUBE PRN PRN oral.liqd 11/19/18 Unknown Rx Sodium Bicarbonate 325 mg FEEDTUBE PRN PRN tablet 11/19/18 Unknown Rx Active Meds: Active Medications Sodium Chloride (Nacl 0.9% 1000 Ml) 1,000 mls @ 125 mls/hr IV DIRECT TIMMY Last Admin: 02/07/19 03:03 Dose: 125 mls/hr Documented by: Review of Systems - Review of Systems ROS unobtainable: due to mental status Exam - Constitutional Vital Signs: Temp Pulse Resp BP Pulse Ox 98.8 F 84 16 87/51 100 02/07/19 04:00 02/07/19 08:51 02/07/19 08:51 02/07/19 08:51 02/07/19 08:51 General appearance: other (contracted) - Respiratory Respiratory effort: normal - Cardiovascular Rhythm: regular - Gastrointestinal General gastrointestinal: Present: soft - Integumentary Integumentary: Present: dry - Neurologic Neurological: disoriented - Psychiatric Psychiatric: other (pt does not respond to directions) - Labs CBC & Chem 7: 02/06/19 20:32 02/06/19 20:32 Lab Results: Laboratory Results - last 24 hr 02/06/19 02/06/19 02/06/19 20:32 20:32 20:32 WBC 17.8 H RBC 4.59 Hgb 11.8 Hct 35.3 MCV 77 L MCH 26 L MCHC 33 RDW 17.0 H Plt Count 436 Lymph % (Auto) 12.0 L Linn % (Auto) 6.6 Eos % (Auto) 0.4 Baso % (Auto) 0.3 Lymph # 2.1 Linn # 1.2 H Eos # 0.1 Baso # 0.0 Seg Neutrophils % 80.7 H Seg Neutrophils # 14.4 H Sodium 138 Potassium 3.9 Chloride 84.1 L Carbon Dioxide 40 H Anion Gap 18 BUN 50 H Creatinine 1.4 H Estimated GFR 45 BUN/Creatinine Ratio 36 Glucose 150 H POC Glucose Calcium 9.8 Total Bilirubin 0.30 AST 45 H ALT 24 Alkaline Phosphatase 121 Total Protein 7.6 Albumin 3.7 L Albumin/Globulin Ratio 0.9 Urine Color Urine Turbidity Urine pH Ur Specific [place] Urine Protein Urine Glucose (UA) Urine Ketones Urine Blood Urine Nitrite Urine Bilirubin Urine Urobilinogen Ur Leukocyte Esterase Urine WBC (Auto) Urine RBC (Auto) U Epithel Cells (Auto) Triple Phos Crystals Blood Type O POSITIVE Antibody Screen Negative 02/06/19 02/07/19 Unknown 02:07 WBC RBC Hgb Hct MCV MCH MCHC RDW Plt Count Lymph % (Auto) Linn % (Auto) Eos % (Auto) Baso % (Auto) Lymph # Linn # Eos # Baso # Seg Neutrophils % Seg Neutrophils # Sodium Potassium Chloride Carbon Dioxide Anion Gap BUN Creatinine Estimated GFR BUN/Creatinine Ratio Glucose POC Glucose 129 H Calcium Total Bilirubin AST ALT Alkaline Phosphatase Total Protein Albumin Albumin/Globulin Ratio Urine Color Shira Urine Turbidity Cloudy Urine pH 8.0 H Ur Specific [place] 1.017 Urine Protein 100 mg/dl Urine Glucose (UA) Neg Urine Ketones Neg Urine Blood Neg Urine Nitrite Neg Urine Bilirubin Neg Urine Urobilinogen < 2.0 Ur Leukocyte Esterase Lg Urine WBC (Auto) 135.0 H Urine RBC (Auto) 26.0 U Epithel Cells (Auto) 1.0 Triple Phos Crystals 3+ Blood Type Antibody Screen Assessment and Plan No overt bleeding, suspect more of a sepsis picture that GI bleed. Trend Hgb (anticipate drop with repeat labs pending this AM due to suspected hemoconcentration) Recommend daily PPI If overt bleeding then please call back immediately and I will assess for endoscopy Will follow up again tomorrow to assess Hgb trend and ensure no overt bleeding - Patient Problems (1) Coffee ground emesis Current Visit: Yes Status: Acute
[2019-02-07] MEDS ORDERED: ALBUMIN HUMAN 25% (12.5 GM/50 ML) INJ IV STA (10:55)
[2019-02-07] MEDS ORDERED: SODIUM CHLORIDE 0.9% 1000 ML 1,000 ML IV ONE ×2 (11:00→17:35)
[2019-02-07] MEDS: SODIUM HYPOCHLORITE, DAKIN'S 1/2 STRENGTH (0.25%) 473 ML TOPICAL SOLN TP SCH (11:00)
[2019-02-07] MEDS: LANSOPRAZOLE 30 MG SOLUTAB FEEDTUBE SCH (11:00)
[2019-02-07] MEDS ORDERED: ALBUMIN HUMAN 25% (25 GM/100 ML) INJ IV STA (11:13)
[2019-02-07] MEDS ORDERED: DOPamine/D5W 800 MG/250 ML 800 MG/250 ML BAG IV SCH (14:00)
[2019-02-07] MEDS: MIDODRINE 5 MG TAB PO SCH ×2 (17:13→21:43)
--- NOTE | 2019-02-07 17:16 | Consultation ---
History of Present Illness Consult date: 02/07/19 Requesting physician: NANDA WADDELL Reason for consult: other (Acute G.I. bleed; Chronic Resp Failure s/p tracheostomy) History of present illness: PULMONARY/CCM CONSULT NOTE (Full dictation # [id number]) Please see dictated notes for full details Medications and Allergies Allergies Allergy/AdvReac Type Severity Reaction Status Date / Time No Known Allergies Allergy Unverified 09/30/13 14:18 Home Medications Medication Instructions Recorded Confirmed Last Taken Type Glycopyrrolate [Robinul] 1 mg PO BID 07/29/17 02/07/19 Unknown History Ipratropium/Albuterol Sulfate 1 ampul IH Q6HR 07/29/17 02/07/19 Unknown History [DUONEB *Not for PRN Use*] Acetaminophen [Acetaminophen 650 mg [place] Q6H PRN 11/03/18 02/07/19 Unknown History SUPPOS] Acetaminophen [Tylenol] 650 mg PO Q4H PRN 11/03/18 02/07/19 Unknown History Aspirin [Aspirin BABY CHEW TAB] 81 mg PO QDAY 11/03/18 02/07/19 Unknown History Baclofen [Lioresal] 10 mg PO QDAY 11/03/18 02/07/19 Unknown History Bisacodyl [Dulcolax suppos] 10 mg [place] QDAY PRN 11/03/18 02/07/19 Unknown History Cranberry Fruit Concentrate 450 mg PO QDAY 11/03/18 02/07/19 Unknown History [Cranberry] Glucagon (Human Recomb) [Glucagen] 1 mg IM Q24H PRN 11/03/18 02/07/19 Unknown History HYDROcodone/APAP 7.5-325 [[place] 1 each PO Q8HR PRN 11/03/18 02/07/19 Unknown History 7.5-325 mg TAB] Hyoscyamine Sulfate [Hyoscyamine 0.125 mg PO Q4H PRN 11/03/18 02/07/19 Unknown History Rapdis 0.125 mg] Insulin Glargine [Lantus VIAL] 10 unit SUB-Q QHS 11/03/18 02/07/19 Unknown History LORazepam [Ativan] 1 mg PO Q4H PRN 11/03/18 02/07/19 Unknown History Magnesium Hydroxide [Milk of 30 ml PO Q3D 11/03/18 02/07/19 Unknown History Magnesia] Morphine Concentrate [MORPHINE 0.25 ml PO Q4HR PRN 11/03/18 02/07/19 Unknown His tory Conc 20 MG/ML ORAL LIQ] Promethazine [Phenergan SUPPOS] 25 mg [place] Q4H PRN 11/03/18 02/07/19 Unknown History Promethazine [Phenergan] 25 mg PO Q4H PRN 11/03/18 02/07/19 Unknown History Promethazine [Phenergan] 25 mg PO Q8HR PRN 11/03/18 02/07/19 Unknown History Sennosides Tab [Senokot] 17.2 mg PO BID 11/03/18 02/07/19 Unknown History Acetaminophen [Acetaminophen TAB] 650 mg PO Q4H PRN tablet 11/19/18 02/07/19 Unknown Rx Hyoscyamine Subl [Levsin Sl 0.125 0.125 mg SL Q4H PRN tablet 11/19/18 02/07/19 Unknown Rx TAB] Lansoprazole Solutab [Prevacid 30 mg FEEDTUBE BID tab.rapdis 11/19/18 02/07/19 Unknown Rx Solutab] Morphine Concentrate [MORPHINE 5 mg PO Q4H PRN oral.liqd 11/19/18 02/07/19 Unknown Rx Conc 20 MG/ML ORAL LIQ] Sodium Bicarbonate 325 mg FEEDTUBE PRN PRN tablet 11/19/18 02/07/19 Unknown Rx Famotidine [Pepcid] 20 mg PO QDAY 02/07/19 02/07/19 Unknown History Active Meds: Active Medications Sodium Chloride (Nacl 0.9% 1000 Ml) 1,000 mls @ 125 mls/hr IV DIRECT TIMMY Last Admin: 02/07/19 12:30 Dose: 125 mls/hr Documented by: Dopamine HCl/Dextrose (Intropin Drip 800 Mg/D5w 250 Ml) 800 mg in 250 mls @ 2.044 mls/hr IV TITR TIMMY; Protocol Last Titration: 02/07/19 17:12 Dose: 5 mcg/kg/min, 5.109 mls/hr Documented by: Lansoprazole (Prevacid Solutab) 30 mg FEEDTUBE QDAY TIMMY Last Admin: 02/07/19 11:00 Dose: 30 mg Documented by: Midodrine (Proamatine) 10 mg PO TID [facility] Last Admin: 02/07/19 17:13 Dose: 10 mg Documented by: Sodium Hypochlorite (Dakin's Half Strength) 1 applic TP BID [facility] Last Admin: 02/07/19 11:00 Dose: 1 applicatio Documented by: Physical Examination Vital signs: Vital Signs Resp Pulse Ox 29 H 96 02/06/19 20:09 02/06/19 20:09 Results - Laboratory Findings CBC and BMP: 02/06/19 20:32 02/06/19 20:32 Abnormal lab findings: Abnormal Labs 02/06/19 02/06/19 02/06/19 20:32 20:32 Unknown WBC 17.8 H MCV 77 L MCH 26 L RDW 17.0 H Lymph % (Auto) 12.0 L [place] # 1.2 H Seg Neutrophils % 80.7 H Seg Neutrophils # 14.4 H Chloride 84.1 L Carbon Dioxide 40 H BUN 50 H Creatinine 1.4 H Glucose 150 H POC Glucose AST 45 H C-Reactive Protein Albumin 3.7 L Urine pH 8.0 H Urine WBC (Auto) 135.0 H 02/07/19 02/07/19 02/07/19 02:07 10:58 12:26 WBC MCV MCH RDW Lymph % (Auto) [place] # Seg Neutrophils % Seg Neutrophils # Chloride Carbon Dioxide BUN Creatinine Glucose POC Glucose 129 H 109 H AST C-Reactive Protein 8.70 H Albumin Urine pH Urine WBC (Auto)
[2019-02-07] MEDS ORDERED: LIDOCAINE-MPF (1%) 10 MG/1 ML VIAL 5 ML INFILTRATI ONE ×2 (17:35→19:59)
[2019-02-07] MEDS ORDERED: GLUCAGON (HUMAN RECOMBINANT) 1 MG/ML INJ IM PRN (19:41)
[2019-02-07] MEDS ORDERED: HYOSCYAMINE SUBL 0.125 MG TAB SL PRN (19:41)
[2019-02-07] MEDS ORDERED: MORPHINE PO PRN (19:41)
[2019-02-07] MEDS ORDERED: HYDROcodone/ACETAMINOPHEN 7.5-325MG TAB PO PRN (19:41)
[2019-02-07] MEDS ORDERED: SODIUM BICARBONATE 325 MG TAB FEEDTUBE PRN ×2 (19:41→19:57)
[2019-02-07] MEDS ORDERED: ACETAMINOPHEN 650 MG RECT SUPP PR PRN (19:41)
[2019-02-07] MEDS ORDERED: SODIUM BICARBONATE 325 MG TAB PO PRN (19:52)
--- NOTE | 2019-02-07 19:52 | History and Physical Report ---
History of Present Illness Date of examination: 02/07/19 Date of admission: 02/07/19 00:16 Chief complaint: Lethargy, GI coffe gr emesis. History of present illness: Patient presented, from the NH, with lethargy, coffee gr emesis., once in the ER, no sign of active GI bleed,she was hydrated, Labs monitored, GI consulted, patient placed in ICU for stability.Patient has hx of CVA, with hemiplegia, treach dependent.IF no real GI Bleed, she will come out of the ICU. Past History Past Medical History: anemia, stroke Social history: no significant social history Family history: no significant family history Medications and Allergies Allergies Allergy/AdvReac Type Severity Reaction Status Date / Time No Known Allergies Allergy Unverified 09/30/13 14:18 Home Medications Medication Instructions Recorded Confirmed Last Taken Type Glycopyrrolate [Robinul] 1 mg PO BID 07/29/17 02/07/19 Unknown History Ipratropium/Albuterol Sulfate 1 ampul IH Q6HR 07/29/17 02/07/19 Unknown History [DUONEB *Not for PRN Use*] Acetaminophen [Acetaminophen 650 mg [place] Q6H PRN 11/03/18 02/07/19 Unknown History SUPPOS] Acetaminophen [Tylenol] 650 mg PO Q4H PRN 11/03/18 02/07/19 Unknown History Aspirin [Aspirin BABY CHEW TAB] 81 mg PO QDAY 11/03/18 02/07/19 Unknown History Baclofen [Lioresal] 10 mg PO QDAY 11/03/18 02/07/19 Unknown History Bisacodyl [Dulcolax suppos] 10 mg [place] QDAY PRN 11/03/18 02/07/19 Unknown History Cranberry Fruit Concentrate 450 mg PO QDAY 11/03/18 02/07/19 Unknown History [Cranberry] Glucagon (Human Recomb) [Glucagen] 1 mg IM Q24H PRN 11/03/18 02/07/19 Unknown History HYDROcodone/APAP 7.5-325 [[place] 1 each PO Q8HR PRN 11/03/18 02/07/19 Unknown History 7.5-325 mg TAB] Hyoscyamine Sulfate [Hyoscyamine 0.125 mg PO Q4H PRN 11/03/18 02/07/19 Unknown History Rapdis 0.125 mg] Insulin Glargine [Lantus VIAL] 10 unit SUB-Q QHS 11/03/18 02/07/19 Unknown History LORazepam [Ativan] 1 mg PO Q4H PRN 11/03/18 02/07/19 Unknown History Magnesium Hydroxide [Milk of 30 ml PO Q3D 11/03/18 02/07/19 Unknown History Magnesia] Morphine Concentrate [MORPHINE 0.25 ml PO Q4HR PRN 11/03/18 02/07/19 Unknown History Conc 20 MG/ML ORAL LIQ] Promethazine [Phenergan SUPPOS] 25 mg [place] Q4H PRN 11/03/18 02/07/19 Unknown History Promethazine [Phenergan] 25 mg PO Q4H PRN 11/03/18 02/07/19 Unknown History Promethazine [Phenergan] 25 mg PO Q8HR PRN 11/03/18 02/07/19 Unknown History Sennosides Tab [Senokot] 17.2 mg PO BID 11/03/18 02/07/19 Unknown History Acetaminophen [Acetaminophen TAB] 650 mg PO Q4H PRN tablet 11/19/18 02/07/19 Unknown Rx Hyoscyamine Subl [Levsin Sl 0.125 0.125 mg SL Q4H PRN tablet 11/19/18 02/07/19 Unknown Rx TAB] Lansoprazole Solutab [Prevacid 30 mg FEEDTUBE BID tab.rapdis 11/19/18 02/07/19 Unknown Rx Solutab] Morphine Concentrate [MORPHINE 5 mg PO Q4H PRN oral.liqd 11/19/18 02/07/19 Unknown Rx Conc 20 MG/ML ORAL LIQ] Sodium Bicarbonate 325 mg FEEDTUBE PRN PRN tablet 11/19/18 02/07/19 Unknown Rx Famotidine [Pepcid] 20 mg PO QDAY 02/07/19 02/07/19 Unknown History Active Meds: Active Medications Acetaminophen (Tylenol) 650 mg [place] Q6H PRN PRN Reason: Pain/ Fever Acetaminophen/Hydrocodone Bitart ([place] 7.5/325) 1 each PO Q8HR PRN PRN Reason: Pain Albuterol/Ipratropium (Duoneb *Not For Prn Use*) 1 ampul IH TIDRT [facility] Albuterol/Ipratropium (Duoneb *Not For Prn Use*) 1 ampul IH Q6HR TIMMY Baclofen (Lioresal) 10 mg PO QDAY TIMMY Bisacodyl (Dulcolax) 10 mg [place] QDAY PRN PRN Reason: Constipation Famotidine (Pepcid) 20 mg PO QDAY [facility] Glucagon (Glucagen) 1 mg IM Q24H PRN PRN Reason: Hypoglycemia Glycopyrrolate (Robinul) 1 mg PO BID [facility] Heparin Sodium (Porcine) (Heparin) 5,000 unit SUB-Q Q12HR [facility] Hyoscyamine (Levsin Sl) 0.125 mg SL Q4H PRN PRN Reason: EXCESSIVE SECRETION Sodium Chloride (Nacl 0.9% 1000 Ml) 1,000 mls @ 125 mls/hr IV DIRECT [facility] Last Admin: 02/07/19 12:30 Dose: 125 mls/hr Documented by: Dopamine HCl/Dextrose (Intropin Drip 800 Mg/D5w 250 Ml) 800 mg in 250 mls @ 2.044 mls/hr IV TITR TIMMY; Protocol Last Titration: 02/07/19 19:00 Dose: 2 mcg/kg/min, 2.044 mls/hr Documented by: Ceftriaxone Sodium (Rocephin/Ns 1 Gm/50 Ml) 1 gm in 50 mls @ 100 mls/hr IV Q24H [facility] Lansoprazole (Prevacid Solutab) 30 mg FEEDTUBE QDAY [facility] Last Admin: 02/07/19 11:00 Dose: 30 mg Documented by: Lansoprazole (Prevacid Solutab) 30 mg FEEDTUBE BID [facility] Magnesium Hydroxide (Milk Of Magnesia) 30 ml PO Q3D [facility] Midodrine (Proamatine) 10 mg PO TID [facility] Last Admin: 02/07/19 17:13 Dose: 10 mg Documented by: Miscellaneous Medication (Cranberry Fruit Concentrate [Cranberry]) 450 mg PO QDAY [facility] Miscellaneous Medication (Morphine Concentrate) 0.25 ml PO Q4HR PRN PRN Reason: Pain , Severe (7-10) Sodium Bicarbonate (Sodium Bicarbonate) 325 mg FEEDTUBE PRN PRN PRN Reason: For Clogged Feeding Tube Sodium Hypochlorite (Dakin's Half Strength) 1 applic TP BID [facility] Last Admin: 02/07/19 11:00 Dose: 1 applicatio Documented by: Review of Systems Constitutional: fatigue, weakness Exam - Constitutional Vitals: Temp Pulse Resp BP Pulse Ox 98.1 F 70 32 H 109/58 100 02/07/19 17:00 02/07/19 19:30 02/07/19 19:30 02/07/19 19:30 02/07/19 19:30 General appearance: Present: mild distress, cachectic - EENT Eyes: Present: PERRL ENT: hearing intact, clear oral mucosa - Neck Neck: Present: supple, normal ROM - Respiratory Respiratory effort: normal Respiratory: bilateral: CTA - Cardiovascular Heart Sounds: Present: S1 & S2. Absent: rub, click - Extremities Extremities: pulses symmetrical, No edema Peripheral Pulses: within normal limits - Abdominal General gastrointestinal: Present: soft, non-tender, non-distended, normal bowel sounds Female genitourinary: Present: deferred - Rectal Rectal Exam: deferred - Integumentary Integumentary: Present: clear, warm, dry - Neurologic Neurologic: moves all extremities Results - Labs CBC & Chem 7: 02/06/19 20:32 02/06/19 20:32 Labs: Abnormal lab results 02/06/19 02/06/19 02/06/19 Range/Units 20:32 20:32 Unknown WBC 17.8 H (4.5-11.0) K/mm3 MCV 77 L (79-97) fl MCH 26 L (28-32) pg RDW 17.0 H (13.2-15.2) % Lymph % (Auto) 12.0 L (13.4-35.0) % [place] # 1.2 H (0.0-0.8) K/mm3 Seg Neutrophils % 80.7 H (40.0-70.0) % Seg Neutrophils # 14.4 H (1.8-7.7) K/mm3 Chloride 84.1 L (98-107) mmol/L Carbon Dioxide 40 H (22-30) mmol/L BUN 50 H (7-17) mg/dL Creatinine 1.4 H (0.7-1.2) mg/dL Glucose 150 H (65-100) mg/dL POC Glucose (70-105) AST 45 H (5-40) units/L C-Reactive Protein (0.00-1.30) mg/dL Albumin 3.7 L (3.9-5) g/dL Urine pH 8.0 H (5.0-7.0) Urine WBC (Auto) 135.0 H (0.0-6.0) /HPF 02/07/19 02/07/19 02/07/19 Range/Units 02:07 10:58 12:26 WBC (4.5-11.0) K/mm3 MCV (79-97) fl MCH (28-32) pg RDW (13.2-15.2) % Lymph % (Auto) (13.4-35.0) % [place] # (0.0-0.8) K/mm3 Seg Neutrophils % (40.0-70.0) % Seg Neutrophils # (1.8-7.7) K/mm3 Chloride (98-107) mmol/L Carbon Dioxide (22-30) mmol/L BUN (7-17) mg/dL Creatinine (0.7-1.2) mg/dL Glucose (65-100) mg/dL POC Glucose 129 H 109 H (70-105) AST (5-40) units/L C-Reactive Protein 8.70 H (0.00-1.30) mg/dL Albumin (3.9-5) g/dL Urine pH (5.0-7.0) Urine WBC (Auto) (0.0-6.0) /HPF Assessment and Plan - Patient Problems (1) Coffee ground emesis Current Visit: Yes Status: Acute Plan to address problem: Follow GI, and monitor labs. (2) Tracheostomy dependent Current Visit: Yes Status: Acute Plan to address problem: supportive care. (3) Feeding by G-tube Current Visit: Yes Status: Acute Plan to address problem: project manager retail to see.
[2019-02-07] MEDS ORDERED: MORPHINE 20 MG/1 ML PO PRN (19:54)
[2019-02-07] MEDS ORDERED: SIMPLE SYRUP 15 ML FEEDTUBE PRN ×2 (19:57)
[2019-02-07] MEDS ORDERED: LIPASE 10,500/PROTEASE 25,000/AMYLASE 43,750 (UNITS) DR CAP FEEDTUBE PRN (19:57)
[2019-02-07] MEDS ORDERED: DEXTROSE 50% IN WATER (25GM) 50 ML SYRINGE IV PRN (20:25)
[2019-02-07] MEDS: IPRATROPIUM/ALBUTEROL SULFATE 3 ML AMPUL.NEB IH SCH (20:56)
[2019-02-07] MEDS: HEPARIN 5,000 UNIT/1 ML VIAL SUB-Q SCH (21:39)
[2019-02-07] MEDS: MAGNESIUM HYDROXIDE (MOM) ORAL LIQD UDC PO SCH (21:40)
[2019-02-07] MEDS: GLYCOPYRROLATE 1 MG TAB PO SCH (21:43)
[2019-02-07] MEDS: cefTRIAXone/NS 1 GM/50 ML 1 GM/50 ML BAG IV SCH (21:45)
[2019-02-07] MEDS ORDERED: LANSOPRAZOLE 30 MG SOLUTAB FEEDTUBE SCH (22:00)
[2019-02-08] MEDS: IPRATROPIUM/ALBUTEROL SULFATE 3 ML AMPUL.NEB IH SCH ×3 (00:14→11:33)
[2019-02-08] MEDS: SODIUM HYPOCHLORITE, DAKIN'S 1/2 STRENGTH (0.25%) 473 ML TOPICAL SOLN TP SCH ×3 (02:45→22:57)
[2019-02-08] MEDS: SODIUM CHLORIDE 0.9% 1000 ML 1,000 ML IV SCH (05:47)
--- NOTE | 2019-02-08 06:02 | Consultation ---
PULMONARY CRITICAL CARE CONSULTATION NOTE CONSULTING PHYSICIAN: Dr. Ruvalcaba. REASON FOR CONSULTATION: 1. Acute GI bleed. 2. Acute on chronic respiratory failure, status post tracheostomy. CHIEF COMPLAINT AND HISTORY OF PRESENT ILLNESS: The patient is a 73-year-old -[place] female with past medical history again as mentioned above, chronic tracheostomy in place, [facility] resident, a history of diabetes and anoxic encephalopathy, who was brought into the Emergency Room for evaluation of reported hematemesis at the [facility]. According to the EMS notes, the staff at [facility] stated the patient had been having coffee-ground emesis since the morning of presentation. They denied fevers or chills. When she showed up in the Emergency Room, she was hypotensive and tachycardic. She was given fluids. A stool guaiac was done; it was found to be negative. The patient was admitted to the ICU for hypotension and the acute on chronic hypoxemic respiratory failure. When I stopped by to see her, she actually was on a dopamine drip that I had given verbal orders for over the phone. She is contracted, unable to get any central venous access. This really is as much of the history of presentation as I have. She is not a current smoker. Remote history is unknown. PAST MEDICAL HISTORY: 1. Chronic respiratory failure with chronic tracheostomy. 2. History of chronic encephalopathy. 3. Diabetes. 4. Hypertension. 5. Chronic decubitus ulcers. 6. Chronic indwelling Blackman catheter. PAST SURGICAL HISTORY: She has had a hysterectomy. She has had a mastectomy. She has had a tracheostomy along with a percutaneous endoscopic gastrostomy tube placement. MEDICATIONS: She was on at the time I stopped by to see her, according to the medication administration record, included the following: She was on a dopamine drip at 5 mcg per kilogram per minute, Prevacid 30 mg p.o. daily, all p.o. meds via the feeding tube, and Dakin's solution for wound care. She had received 2 grams of cefepime in the Emergency Room. She was also on a Protonix drip. She had been placed on a Protonix drip earlier. She received vancomycin 1 gram in the ICU. ALLERGIES: No known drug allergies. DIET: Petite lady; acute weight loss or gain history is unknown. FAMILY AND SOCIAL HISTORY: half-way resident. No current alcohol, tobacco, or illicit drug use or abuse. Remote history is unknown. REVIEW OF SYSTEMS: Unobtainable secondary to the patient's medical and mental condition. Since she has been here, no gross hematochezia or melena, no gross hematuria, no hematemesis, no witnessed seizures. No bloody tracheal secretions have been reported. Review of systems otherwise unobtainable or as in the body of the history above. PHYSICAL EXAMINATION: On examination at presentation in the Emergency Room: VITAL SIGNS: She had a low-grade fever of 99.6 degrees Fahrenheit with a pulse of 103, respiratory rate of 29, and blood pressure of 87/61. O2 sats were 96%; inspired oxygen concentration was not recorded. When I stopped by to see her, O2 sats were 98% that was on 40% FiO2 via the T-piece. GENERAL: Elderly looking, chronically ill-looking -[place] female, normocephalic, resting in the bed with mildly increased respiratory effort at rest. HEAD, EYES, EARS, NOSE AND THROAT: She is anicteric. No conjunctival erythema. Oropharynx is moist. Tracheostomy tube is in the midline of her neck without significant bleeding or exudation around it. No gross jugular venous distention, no thyromegaly. Grossly, no palpable lymph nodes in the supraclavicular, submandibular lymph node chains. LUNGS: Auscultation of both lung gleason reveal good bilateral breath sounds, occasional referred upper airway sounds, faint rhonchi, no wheezing. HEART: Heart sounds 1 and 2 were heard. They were regular in rate and rhythm at time of my evaluation without overt rubs or murmurs. ABDOMEN: Soft. Bowel sounds are positive, nontender, no palpable hepatosplenomegaly. EXTREMITIES: Without overt digital clubbing or cyanosis and no pedal edema. She had an ulcer to her heel. NEUROLOGIC: She is nonresponsive. She is encephalopathic. Opens her eyes spontaneously. 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 SKIN: Poor turgor without overt cellulitis. She has a reported sacral decubitus ulcer. LABORATORY DATA: From my review are as follows: Admission white cell count 17,800, hemoglobin 11.8, hematocrit 35.3, platelet count of 436. No band forms reported. No manual differential. Serum sodium was 138, potassium 3.9, chloride 84, bicarbonate 40, BUN 50, creatinine 1.4, and a glucose of 150. AST was 45. Otherwise, liver function tests were within normal limits. Urinalysis showed large leukocyte esterase and 135 white cells per high power field. Two sets of blood cultures, no growth to date. Chest x-ray was done; I am able to compare the chest x-ray with the one from 11/06/2018. No acute infiltrate on this particular chest x-ray; tracheostomy tube is in good position. ASSESSMENT: 1. Severe sepsis with shock, probably secondary to urinary tract infection. 2. Urinary tract infection. 3. Suspected gastrointestinal bleed, but with negative stool guaiac. 4. Leukocytosis. 5. Acute on chronic hypoxemic respiratory failure with increased oxygen requirements. 6. Acute kidney injury. 7. History of diabetes. 8. Anoxic encephalopathy. 9. Adult failure to thrive. PLAN: We will continue the dopamine drip. She is a difficult stick for central venous access due to her contractures. I do feel that especially with the BUN and creatinine levels the way they are that she is volume depleted, I will go ahead and bolus her another liter of IV normal saline and then see if we can get her off the dopamine. We will begin midodrine. We will continue supplemental oxygen, wean to keep sats greater than or equal to about 90%. Aspiration precautions will be maintained. If she decompensates, she will be put on the mechanical ventilator. She remains a full code. I will treat her empirically for UTI with Rocephin while following the cultures. I will send a CRP level. Her lactic acid level is within normal limits that is encouraging. They will be trended as necessary to lozenge maker helper clinical decision making/de-escalation. Chronic disease medications will be reintroduced per the attending. She is on GI prophylaxis. I will put her on DVT prophylaxis. We will wean vasopressors for a target mean arterial pressure of 65 mmHg. Aspiration precautions will be maintained. Flu and pneumonia vaccination will be addressed per protocol. Wound care consultation will be placed per the attending. Thank you very much for the consult Dr. Ruvalcaba. I should mention GI evaluation has been done and recommendations will be followed. We will follow along. We will make further recommendations as picture progresses/becomes clearer. At this point, I have spent about 30-35 minutes of critical care time without overlap and excluding any procedural time that may be necessary. JOB# [id number] KEN/JENNIFER RODRIGUEZ
[2019-02-08] MEDS: MIDODRINE 5 MG TAB PO SCH ×3 (08:00→22:56)
[2019-02-08] MEDS ORDERED: SIMPLE SYRUP 15 ML FEEDTUBE PRN ×2 (08:37)
[2019-02-08] MEDS ORDERED: SODIUM BICARBONATE 325 MG TAB FEEDTUBE PRN (08:37)
[2019-02-08] MEDS ORDERED: LIPASE 10,500/PROTEASE 25,000/AMYLASE 43,750 (UNITS) DR CAP FEEDTUBE PRN (08:37)
[2019-02-08] MEDS: BACLOFEN 10 MG TAB PO SCH (09:00)
[2019-02-08] MEDS: GLYCOPYRROLATE 1 MG TAB PO SCH ×2 (09:00→22:56)
[2019-02-08] MEDS: LANSOPRAZOLE 30 MG SOLUTAB FEEDTUBE SCH (09:00)
[2019-02-08] MEDS: HEPARIN 5,000 UNIT/1 ML VIAL SUB-Q SCH ×2 (09:03→22:57)
[2019-02-08] MEDS ORDERED: CRANBERRY FRUIT 450 MG PO SCH (10:00)
[2019-02-08] MEDS ORDERED: FAMOTIDINE 20 MG TAB PO SCH (10:00)
[2019-02-08] MEDS ORDERED: ALBUTEROL 2.5 MG/3 ML NEBU IH PRN (11:53)
--- NOTE | 2019-02-08 14:26 | Progress Note ---
Assessment and Plan Severe sepsis with shock, probably secondary to urinary tract infection. Urinary tract infection. Suspected gastrointestinal bleed, but with negative stool guaiac. Leukocytosis. Acute on chronic hypoxemic respiratory failure Acute kidney injury. History of diabetes. Anoxic encephalopathy. Adult failure to thrive - stop IVF after current bag is done - repeat BMP and address - repeat CBC in am - continue bronchodilators with pulmonary hygiene per RT - continue supplemental oxygen to keep O2 sat's > 90% - continue aspiration precautions - continue AB's; will de-escalate based on clinical and microbiologic data - enteral nutrition at goal rate as tolerated - continue glycemic control with SSI for target BG < 180 mg/dl - PT/OT as tolerated - mobility protocols for pressure ulcer prophylaxis - continue other care per attending ... re-evaluate in am & prn ... ok to transfer to [facility] Date of service: 02/08/19 Principal diagnosis: Severe sepsis; UTI; Suspected G.I. bleed; Ac. on ch. hypoxemic resp failure Interval history: Patient is seen today for: Severe sepsis with shock; Urinary tract infection; Suspected gastrointestinal bleed; Leukocytosis; Acute on chronic hypoxemic respiratory failure; Acute kidney injury; DM II; Anoxic encephalopathy; Adult failure to thrive Seen and examined at bedside; 24hour events reviewed; nursing and respiratory care staff consulted; no adverse overnight events reported to me; resting peacefully in bed; doing better; off vasopressors; AMS is persistent; no emesis or overt aspiration. Objective Vital Signs - 12hr 02/08/19 02/08/19 02/08/19 02:30 02:40 02:51 Temperature Pulse Rate 65 82 70 Pulse Rate [ Bilateral Throughout] Pulse Rate [ From Monitor] Respiratory 22 20 22 Rate Respiratory Rate [Bilateral Throughout] Blood Pressure 91/56 91/56 96/60 O2 Sat by Pulse 100 100 100 Oximetry O2 Sat by Pulse Oximetry [ Assessment] 02/08/19 02/08/19 02/08/19 03:00 03:11 03:15 Temperature Pulse Rate 69 72 Pulse Rate [ Bilateral Throughout] Pulse Rate [ From Monitor] Respiratory 21 17 Rate Respiratory Rate [Bilateral Throughout] Blood Pressure 104/63 104/63 O2 Sat by Pulse 100 100 100 Oximetry O2 Sat by Pulse 100 Oximetry [ Assessment] 02/08/19 02/08/19 02/08/19 03:21 03:30 03:41 Temperature Pulse Rate 59 L 73 86 Pulse Rate [ Bilateral Throughout] Pulse Rate [ From Monitor] Respiratory 20 15 19 Rate Respiratory Rate [Bilateral Throughout] Blood Pressure 96/55 105/59 105/59 O2 Sat by Pulse 100 100 100 Oximetry O2 Sat by Pulse Oximetry [ Assessment] 02/08/19 02/08/19 02/08/19 03:51 04:00 04:11 Temperature 98.0 F Pulse Rate 74 85 73 Pulse Rate [ Bilateral Throughout] Pulse Rate [ From Monitor] Respiratory 20 25 H 18 Rate Respiratory Rate [Bilateral Throughout] Blood Pressure 83/55 93/55 93/55 O2 Sat by Pulse 100 100 100 Oximetry O2 Sat by Pulse Oximetry [ Assessment] 02/08/19 02/08/19 02/08/19 04:21 04:30 04:41 Temperature Pulse Rate 73 73 64 Pulse Rate [ Bilateral Throughout] Pulse Rate [ From Monitor] Respiratory 7 L 20 10 L Rate Respiratory Rate [Bilateral Throughout] Blood Pressure 104/54 104/57 104/57 O2 Sat by Pulse 100 100 100 Oximetry O2 Sat by Pulse Oximetry [ Assessment] 02/08/19 02/08/19 02/08/19 04:51 05:00 05:03 Temperature Pulse Rate 67 64 64 Pulse Rate [ Bilateral Throughout] Pulse Rate [ 67 From Monitor] Respiratory 11 L 14 26 H Rate Respiratory Rate [Bilateral Throughout] Blood Pressure 113/54 127/49 O2 Sat by Pulse 100 100 100 Oximetry O2 Sat by Pulse Oximetry [ Assessment] 02/08/19 02/08/19 02/08/19 05:11 05:21 05:30 Temperature Pulse Rate 63 78 72 Pulse Rate [ Bilateral Throughout] Pulse Rate [ From Monitor] Respiratory 23 19 10 L Rate Respiratory Rate [Bilateral Throughout] Blood Pressure 127/49 146/50 131/59 O2 Sat by Pulse 100 100 100 Oximetry O2 Sat by Pulse Oximetry [ Assessment] 02/08/19 02/08/19 02/08/19 05:41 05:51 06:00 Temperature Pulse Rate 76 77 78 Pulse Rate [ Bilateral Throughout] Pulse Rate [ From Monitor] Respiratory 16 13 26 H Rate Respiratory Rate [Bilateral Throughout] Blood Pressure 131/59 117/54 107/53 O2 Sat by Pulse 100 100 100 Oximetry O2 Sat by Pulse Oximetry [ Assessment] 02/08/19 02/08/19 02/08/19 06:10 06:20 06:30 Temperature Pulse Rate 76 84 82 Pulse Rate [ Bilateral Throughout] Pulse Rate [ From Monitor] Respiratory 26 H 27 H 26 H Rate Respiratory Rate [Bilateral Throughout] Blood Pressure 107/53 116/61 104/52 O2 Sat by Pulse 100 100 100 Oximetry O2 Sat by Pulse Oximetry [ Assessment] 02/08/19 02/08/19 02/08/19 06:41 06:51 07:00 Temperature Pulse Rate 82 76 76 Pulse Rate [ Bilateral Throughout] Pulse Rate [ From Monitor] Respiratory 29 H 25 H 26 H Rate Respiratory Rate [Bilateral Throughout] Blood Pressure 104/52 116/61 98/49 O2 Sat by Pulse 100 100 100 Oximetry O2 Sat by Pulse Oximetry [ Assessment] 02/08/19 02/08/19 02/08/19 07:11 07:21 07:30 Temperature Pulse Rate 80 82 83 Pulse Rate [ Bilateral Throughout] Pulse Rate [ From Monitor] Respiratory 26 H 26 H 21 Rate Respiratory Rate [Bilateral Throughout] Blood Pressure 98/49 99/51 103/52 O2 Sat by Pulse 99 99 100 Oximetry O2 Sat by Pulse Oximetry [ Assessment] 02/08/19 02/08/19 02/08/19 07:41 07:51 08:00 Temperature 98.2 F Pulse Rate 80 76 83 Pulse Rate [ Bilateral Throughout] Pulse Rate [ 98 H From Monitor] Respiratory 24 23 20 Rate Respiratory Rate [Bilateral Throughout] Blood Pressure 103/52 105/52 105/54 O2 Sat by Pulse 100 99 99 Oximetry O2 Sat by Pulse Oximetry [ Assessment] 02/08/19 02/08/19 02/08/19 08:11 08:21 08:30 Temperature Pulse Rate 83 84 86 Pulse Rate [ Bilateral Throughout] Pulse Rate [ From Monitor] Respiratory 25 H 21 19 Rate Respiratory Rate [Bilateral Throughout] Blood Pressure 105/54 105/54 112/55 O2 Sat by Pulse 99 100 100 Oximetry O2 Sat by Pulse Oximetry [ Assessment] 02/08/19 02/08/19 02/08/19 08:41 08:51 09:00 Temperature Pulse Rate 82 81 80 Pulse Rate [ Bilateral Throughout] Pulse Rate [ From Monitor] Respiratory 27 H 19 30 H Rate Respiratory Rate [Bilateral Throughout] Blood Pressure 112/55 105/45 104/52 O2 Sat by Pulse 100 100 100 Oximetry O2 Sat by Pulse Oximetry [ Assessment] 02/08/19 02/08/19 02/08/19 09:11 09:21 09:30 Temperature Pulse Rate 85 84 88 Pulse Rate [ Bilateral Throughout] Pulse Rate [ From Monitor] Respiratory 32 H 30 H 32 H Rate Respiratory Rate [Bilateral Throughout] Blood Pressure 104/52 102/54 97/55 O2 Sat by Pulse 100 100 100 Oximetry O2 Sat by Pulse Oximetry [ Assessment] 02/08/19 02/08/19 02/08/19 09:37 09:41 09:51 Temperature Pulse Rate 116 H 98 H Pulse Rate [ 125 H Bilateral Throughout] Pulse Rate [ From Monitor] Respiratory 43 H 30 H Rate Respiratory 30 H Rate [Bilateral Throughout] Blood Pressure 97/55 138/79 O2 Sat by Pulse 76 L Oximetry O2 Sat by Pulse Oximetry [ Assessment] 02/08/19 02/08/19 02/08/19 10:00 10:11 10:21 Temperature Pulse Rate 133 H 130 H 138 H Pulse Rate [ Bilateral Throughout] Pulse Rate [ From Monitor] Respiratory 55 H 53 H 63 H Rate Respiratory Rate [Bilateral Throughout] Blood Pressure 128/77 128/77 99/62 O2 Sat by Pulse Oximetry O2 Sat by Pulse Oximetry [ Assessment] 02/08/19 02/08/19 02/08/19 10:30 10:41 10:51 Temperature Pulse Rate 98 H 94 H 87 Pulse Rate [ Bilateral Throughout] Pulse Rate [ From Monitor] Respiratory 48 H 35 H 38 H Rate Respiratory Rate [Bilateral Throughout] Blood Pressure 93/56 93/56 98/58 O2 Sat by Pulse Oximetry O2 Sat by Pulse Oximetry [ Assessment] 02/08/19 02/08/19 02/08/19 11:00 11:11 11:21 Temperature Pulse Rate 85 80 90 Pulse Rate [ Bilateral Throughout] Pulse Rate [ From Monitor] Respiratory 32 H 28 H 24 Rate Respiratory Rate [Bilateral Throughout] Blood Pressure 93/56 93/56 96/58 O2 Sat by Pulse Oximetry O2 Sat by Pulse Oximetry [ Assessment] 02/08/19 02/08/19 02/08/19 11:30 11:40 11:51 Temperature Pulse Rate 87 90 85 Pulse Rate [ Bilateral Throughout] Pulse Rate [ From Monitor] Respiratory 19 27 H 25 H Rate Respiratory Rate [Bilateral Throughout] Blood Pressure 109/66 109/66 120/65 O2 Sat by Pulse Oximetry O2 Sat by Pulse Oximetry [ Assessment] 02/08/19 02/08/19 02/08/19 12:00 12:11 12:21 Temperature 98.8 F Pulse Rate 85 84 79 Pulse Rate [ Bilateral Throughout] Pulse Rate [ 86 From Monitor] Respiratory 23 24 23 Rate Respiratory Rate [Bilateral Throughout] Blood Pressure 125/68 125/68 107/54 O2 Sat by Pulse 98 Oximetry O2 Sat by Pulse Oximetry [ Assessment] 02/08/19 02/08/19 02/08/19 12:30 12:41 12:51 Temperature Pulse Rate 77 77 77 Pulse Rate [ Bilateral Throughout] Pulse Rate [ From Monitor] Respiratory 25 H 24 23 Rate Respiratory Rate [Bilateral Throughout] Blood Pressure 110/63 110/63 109/61 O2 Sat by Pulse Oximetry O2 Sat by Pulse Oximetry [ Assessment] 02/08/19 02/08/19 02/08/19 13:00 13:11 13:21 Temperature Pulse Rate 80 82 77 Pulse Rate [ Bilateral Throughout] Pulse Rate [ From Monitor] Respiratory 22 23 18 Rate Respiratory Rate [Bilateral Throughout] Blood Pressure 101/58 101/58 100/59 O2 Sat by Pulse Oximetry O2 Sat by Pulse Oximetry [ Assessment] 02/08/19 02/08/19 02/08/19 13:30 13:41 13:51 Temperature Pulse Rate 78 96 H 80 Pulse Rate [ Bilateral Throughout] Pulse Rate [ From Monitor] Respiratory 22 22 21 Rate Respiratory Rate [Bilateral Throughout] Blood Pressure 103/56 103/56 110/69 O2 Sat by Pulse 100 100 100 Oximetry O2 Sat by Pulse Oximetry [ Assessment] 02/08/19 14:00 Temperature Pulse Rate 83 Pulse Rate [ Bilateral Throughout] Pulse Rate [ From Monitor] Respiratory 22 Rate Respiratory Rate [Bilateral Throughout] Blood Pressure 112/64 O2 Sat by Pulse 100 Oximetry O2 Sat by Pulse Oximetry [ Assessment] Constitutional: no acute distress, other (elderly looking AAF, normocephalic with mildly increased respiratory effort at rest) Eyes: non-icteric ENT: oropharynx moist Neck: supple, no lymphadenopathy, no JVD, other (+ midline tracheostomy tube) Effort: mildly labored Ascultation: Bilateral: diminished breath sounds, rhonchi Percussion: Bilateral: not dull Cardiovascular: regular rate and rhythm Gastrointestinal: normoactive bowel sounds, soft, non-tender, non-distended Integumentary: decubitus ulcer (sacral) Extremities: no cyanosis, no edema, pulses normal, no ischemia or petechiae Neurologic: unable to assess Psychiatric: other (unable to assess) CBC and BMP: 02/08/19 14:59 02/06/19 20:32 Abnormal lab findings: Abnormal Labs 02/06/19 02/06/19 02/06/19 20:32 20:32 Unknown WBC 17.8 H MCV 77 L MCH 26 L RDW 17.0 H Lymph % (Auto) 12.[address] # 1.2 H Seg Neutrophils % 80.7 H Seg Neutrophils # 14.4 H Chloride 84.1 L Carbon Dioxide 40 H BUN 50 H Creatinine 1.4 H Glucose 150 H POC Glucose AST 45 H C-Reactive Protein Albumin 3.7 L Urine pH 8.0 H Urine WBC (Auto) 135.0 H 02/07/19 02/07/19 02/07/19 02:07 10:58 12:26 WBC MCV MCH RDW Lymph % (Auto) Lane # Seg Neutrophils % Seg Neutrophils # Chloride Carbon Dioxide BUN Creatinine Glucose POC Glucose 129 H 109 H AST C-Reactive Protein 8.70 H Albumin Urine pH Urine WBC (Auto) 02/08/19 02/08/19 06:00 06:46 WBC MCV MCH RDW Lymph % (Auto) Lane # Seg Neutrophils % Seg Neutrophils # Chloride Carbon Dioxide BUN Creatinine Glucose POC Glucose 69 L 145 H AST C-Reactive Protein Albumin Urine pH Urine WBC (Auto) Allied health notes reviewed: nursing
--- NOTE | 2019-02-08 14:33 | Gastroenterology Progress Note ---
<FERNANDO RAINEY - Last Filed: 02/08/19 14:44> Assessment and Plan 1.coffee-ground emesis -stool guaiac negative in ED -H/H WNL -continue to monitor H/H and transfuse as needed -no active signs of bleeding overnight or this am per nursing -no plan for EGD at this time unless overt bleeding develops -okay to resume TFs -continue PPI and supportive care -will sign off, please call if needed 2.sepsis with shock 2/2 probably UTI 3.acute on chronic hypoxemic respiratory failure 4.DYLLAN 5.DM 6.anoxic encephalopathy Subjective Date of service: 02/08/19 Principal diagnosis: GI bleed Interval history: No active signs of bleeding overnight or this am per nursing. Objective - Constitutional Vitals: Temp Pulse Resp BP Pulse Ox 98.8 F 83 22 112/64 100 02/08/19 12:00 02/08/19 14:00 02/08/19 14:00 02/08/19 14:00 02/08/19 14:00 General appearance: other (in ICU on vent) - Respiratory Respiratory: bilateral: CTA (anterior) - Cardiovascular Rhythm: regular - Gastrointestinal General gastrointestinal: Present: soft, non-distended, normal bowel sounds - Musculoskeletal Musculoskeletal: other (contracted) - Neurologic Neurological: other (unable to assess) - Labs CBC & Chem 7: 02/06/19 20:32 02/06/19 20:32 Labs: Laboratory Results - last 24 hr 02/07/19 02/07/19 02/08/19 17:40 23:56 06:00 POC Glucose 102 79 69 L 02/08/19 02/08/19 06:46 12:12 POC Glucose 145 H 82 <PIA VAIL - Last Filed: 02/08/19 23:46> Assessment and Plan Patient seen and examined. I have reviewed the advanced practitioner's evaluation, assessment, and plan, and agree with them. I note the following additions: no overt bleeding, Hgb stable, therefore risks of procedures, daly given patient's physical status, would outweigh benefit, will sign off, please call back if needed - Patient Problems (1) Coffee ground emesis Current Visit: Yes Status: Acute Objective - Constitutional Vitals: Temp Pulse Resp BP Pulse Ox 99.6 F 97 H 28 H 141/70 100 02/08/19 19:44 02/08/19 19:44 02/08/19 19:44 02/08/19 19:44 02/08/19 19:44 - Labs CBC & Chem 7: 02/08/19 14:59 02/06/19 20:32 Labs: Laboratory Results - last 24 hr 02/07/19 02/08/19 02/08/19 23:56 06:00 06:46 Hgb Hct POC Glucose 79 69 L 145 H 02/08/19 02/08/19 02/08/19 12:12 14:59 18:10 Hgb 8.0 L D Hct 24.9 L D POC Glucose 82 86
[2019-02-08 15:16] LABS: Hematocrit 24.9 % (30.3-42.9)
--- NOTE | 2019-02-08 19:22 | Progress Note ---
Assessment and Plan - Patient Problems (1) Coffee ground emesis Current Visit: Yes Status: Acute Plan to address problem: Follow GI, and monitor labs. (2) Tracheostomy dependent Current Visit: Yes Status: Acute Plan to address problem: supportive care. 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 Subjective Date of service: 02/08/19 Principal diagnosis: GI bleed Interval history: Patient seen/examined, resting in bed, notes/records reviewed. patient moved out of the ICU. No Notable GI bleed since admission. Objective - Constitutional Vitals: Vital Signs - 12hr 02/08/19 02/08/19 02/08/19 07:21 07:30 07:41 Temperature Pulse Rate 82 83 80 Pulse Rate [ Bilateral Throughout] Pulse Rate [ From Monitor] Respiratory 26 H 21 24 Rate Respiratory Rate [Bilateral Throughout] Blood Pressure 99/51 103/52 103/52 O2 Sat by Pulse 99 100 100 Oximetry O2 Sat by Pulse Oximetry [ Assessment] 02/08/19 02/08/19 02/08/19 07:51 08:00 08:11 Temperature 98.2 F Pulse Rate 76 83 83 Pulse Rate [ Bilateral Throughout] Pulse Rate [ 98 H From Monitor] Respiratory 23 20 25 H Rate Respiratory Rate [Bilateral Throughout] Blood Pressure 105/52 105/54 105/54 O2 Sat by Pulse 99 99 99 Oximetry O2 Sat by Pulse Oximetry [ Assessment] 02/08/19 02/08/19 02/08/19 08:21 08:30 08:41 Temperature Pulse Rate 84 86 82 Pulse Rate [ Bilateral Throughout] Pulse Rate [ From Monitor] Respiratory 21 19 27 H Rate Respiratory Rate [Bilateral Throughout] Blood Pressure 105/54 112/55 112/55 O2 Sat by Pulse 100 100 100 Oximetry O2 Sat by Pulse Oximetry [ Assessment] 02/08/19 02/08/19 02/08/19 08:51 09:00 09:11 Temperature Pulse Rate 81 80 85 Pulse Rate [ Bilateral Throughout] Pulse Rate [ From Monitor] Respiratory 19 30 H 32 H Rate Respiratory Rate [Bilateral Throughout] Blood Pressure 105/45 104/52 104/52 O2 Sat by Pulse 100 100 100 Oximetry O2 Sat by Pulse Oximetry [ Assessment] 02/08/19 02/08/19 02/08/19 09:21 09:30 09:37 Temperature Pulse Rate 84 88 Pulse Rate [ 125 H Bilateral Throughout] Pulse Rate [ From Monitor] Respiratory 30 H 32 H Rate Respiratory 30 H Rate [Bilateral Throughout] Blood Pressure 102/54 97/55 O2 Sat by Pulse 100 100 Oximetry O2 Sat by Pulse Oximetry [ Assessment] 02/08/19 02/08/19 02/08/19 09:41 09:51 10:00 Temperature Pulse Rate 116 H 98 H 133 H Pulse Rate [ Bilateral Throughout] Pulse Rate [ From Monitor] Respiratory 43 H 30 H 55 H Rate Respiratory Rate [Bilateral Throughout] Blood Pressure 97/55 138/79 128/77 O2 Sat by Pulse 76 L 98 Oximetry O2 Sat by Pulse Oximetry [ Assessment] 02/08/19 02/08/19 02/08/19 10:11 10:21 10:30 Temperature Pulse Rate 130 H 138 H 98 H Pulse Rate [ Bilateral Throughout] Pulse Rate [ From Monitor] Respiratory 53 H 63 H 48 H Rate Respiratory Rate [Bilateral Throughout] Blood Pressure 128/77 99/62 93/56 O2 Sat by Pulse Oximetry O2 Sat by Pulse Oximetry [ Assessment] 02/08/19 02/08/19 02/08/19 10:41 10:51 11:00 Temperature Pulse Rate 94 H 87 85 Pulse Rate [ Bilateral Throughout] Pulse Rate [ From Monitor] Respiratory 35 H 38 H 32 H Rate Respiratory Rate [Bilateral Throughout] Blood Pressure 93/56 98/58 93/56 O2 Sat by Pulse Oximetry O2 Sat by Pulse Oximetry [ Assessment] 02/08/19 02/08/19 02/08/19 11:11 11:21 11:30 Temperature Pulse Rate 80 90 87 Pulse Rate [ Bilateral Throughout] Pulse Rate [ From Monitor] Respiratory 28 H 24 19 Rate Respiratory Rate [Bilateral Throughout] Blood Pressure 93/56 96/58 109/66 O2 Sat by Pulse Oximetry O2 Sat by Pulse Oximetry [ Assessment] 02/08/19 02/08/19 02/08/19 11:40 11:51 12:00 Temperature 98.8 F Pulse Rate 90 85 85 Pulse Rate [ Bilateral Throughout] Pulse Rate [ 86 From Monitor] Respiratory 27 H 25 H 23 Rate Respiratory Rate [Bilateral Throughout] Blood Pressure 109/66 120/65 125/68 O2 Sat by Pulse 98 Oximetry O2 Sat by Pulse Oximetry [ Assessment] 02/08/19 02/08/19 02/08/19 12:11 12:21 12:30 Temperature Pulse Rate 84 79 77 Pulse Rate [ Bilateral Throughout] Pulse Rate [ From Monitor] Respiratory 24 23 25 H Rate Respiratory Rate [Bilateral Throughout] Blood Pressure 125/68 107/54 110/63 O2 Sat by Pulse Oximetry O2 Sat by Pulse Oximetry [ Assessment] 02/08/19 02/08/19 02/08/19 12:41 12:51 13:00 Temperature Pulse Rate 77 77 80 Pulse Rate [ Bilateral Throughout] Pulse Rate [ From Monitor] Respiratory 24 23 22 Rate Respiratory Rate [Bilateral Throughout] Blood Pressure 110/63 109/61 101/58 O2 Sat by Pulse Oximetry O2 Sat by Pulse Oximetry [ Assessment] 02/08/19 02/08/19 02/08/19 13:11 13:21 13:30 Temperature Pulse Rate 82 77 78 Pulse Rate [ Bilateral Throughout] Pulse Rate [ From Monitor] Respiratory 23 18 22 Rate Respiratory Rate [Bilateral Throughout] Blood Pressure 101/58 100/59 103/56 O2 Sat by Pulse 100 Oximetry O2 Sat by Pulse Oximetry [ Assessment] 02/08/19 02/08/19 02/08/19 13:41 13:51 14:00 Temperature Pulse Rate 96 H 80 83 Pulse Rate [ Bilateral Throughout] Pulse Rate [ From Monitor] Respiratory 22 21 22 Rate Respiratory Rate [Bilateral Throughout] Blood Pressure 103/56 110/69 112/64 O2 Sat by Pulse 100 100 100 Oximetry O2 Sat by Pulse Oximetry [ Assessment] 02/08/19 02/08/19 02/08/19 14:11 14:21 14:30 Temperature Pulse Rate 78 78 78 Pulse Rate [ Bilateral Throughout] Pulse Rate [ From Monitor] Respiratory 22 22 18 Rate Respiratory Rate [Bilateral Throughout] Blood Pressure 112/64 109/63 121/67 O2 Sat by Pulse 100 100 100 Oximetry O2 Sat by Pulse Oximetry [ Assessment] 02/08/19 02/08/19 02/08/19 14:41 14:51 15:00 Temperature Pulse Rate 70 73 83 Pulse Rate [ Bilateral Throughout] Pulse Rate [ From Monitor] Respiratory 20 19 19 Rate Respiratory Rate [Bilateral Throughout] Blood Pressure 121/67 124/57 118/64 O2 Sat by Pulse 100 100 100 Oximetry O2 Sat by Pulse Oximetry [ Assessment] 02/08/19 02/08/19 02/08/19 15:11 15:21 15:31 Temperature Pulse Rate 67 50 L 82 Pulse Rate [ Bilateral Throughout] Pulse Rate [ From Monitor] Respiratory 13 11 L 19 Rate Respiratory Rate [Bilateral Throughout] Blood Pressure 118/64 109/68 93/51 O2 Sat by Pulse 100 100 100 Oximetry O2 Sat by Pulse Oximetry [ Assessment] 02/08/19 02/08/19 02/08/19 15:41 15:51 16:00 Temperature 98.4 F Pulse Rate 90 78 75 Pulse Rate [ Bilateral Throughout] Pulse Rate [ 75 From Monitor] Respiratory 24 23 18 Rate Respiratory Rate [Bilateral Throughout] Blood Pressure 124/57 102/54 98/50 O2 Sat by Pulse 100 100 98 Oximetry O2 Sat by Pulse Oximetry [ Assessment] 02/08/19 02/08/19 02/08/19 16:10 16:11 16:21 Temperature Pulse Rate 69 48 L Pulse Rate [ Bilateral Throughout] Pulse Rate [ From Monitor] Respiratory 15 15 Rate Respiratory Rate [Bilateral Throughout] Blood Pressure 102/54 77/56 O2 Sat by Pulse 100 100 Oximetry O2 Sat by Pulse 98 Oximetry [ Assessment] 02/08/19 17:06 Temperature Pulse Rate Pulse Rate [ Bilateral Throughout] Pulse Rate [ From Monitor] Respiratory Rate Respiratory Rate [Bilateral Throughout] Blood Pressure 105/68 O2 Sat by Pulse Oximetry O2 Sat by Pulse Oximetry [ Assessment] General appearance: Present: mild distress - EENT Eyes: PERRL, EOM intact ENT: hearing intact, clear oral mucosa Ears: bilateral: normal - Neck Neck: supple, normal ROM - Respiratory Respiratory: bilateral: rhonchi - Breasts Breasts: deferred - Cardiovascular Rhythm: regular Heart Sounds: Present: S1 & S2. Absent: gallop, rub Extremities: pulses intact, No edema, normal color, Full ROM - Gastrointestinal General gastrointestinal: Present: soft, non-tender, non-distended, normal bowel sounds Rectal Exam: deferred - Genitourinary Female genitourinary: deferred - Integumentary Integumentary: clear, warm, dry - Musculoskeletal Musculoskeletal: 1, strength equal bilaterally - Neurologic Neurologic: moves all extremities - Psychiatric Psychiatric: memory intact, appropriate mood/affect, intact judgment & insight - Labs CBC & Chem 7: 02/08/19 14:59 02/06/19 20:32 Labs: Abnormal lab results 02/08/19 02/08/19 02/08/19 Range/Units 06:00 06:46 14:59 Hgb 8.0 L D (10.1-14.3) gm/dl Hct 24.9 L D (30.3-42.9) % POC Glucose 69 L 145 H (70-105)
[2019-02-08] MEDS: cefTRIAXone/NS 1 GM/50 ML 1 GM/50 ML BAG IV SCH (22:55)
[2019-02-09] MEDS: MIDODRINE 5 MG TAB PO SCH ×3 (08:03→22:07)
--- NOTE | 2019-02-09 10:13 | Progress Note ---
Assessment and Plan - Patient Problems (1) Coffee ground emesis Current Visit: Yes Status: Acute Plan to address problem: Follow GI, and monitor labs. (2) Tracheostomy dependent Current Visit: Yes Status: Acute Plan to address problem: supportive care. 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 Subjective Date of service: 02/09/19 Principal diagnosis: GI bleed Interval history: Patient seen/examined, resting in bed, notes/records reviewed. patient moved out of the ICU. No Notable GI bleed since admission. Patient seen/resting in bed, labs reviewed.24hrs event, unremarkable. Objective - Constitutional Vitals: Vital Signs - 12hr 02/08/19 02/09/19 02/09/19 22:45 01:58 07:33 Temperature 98.9 F 99.2 F Pulse Rate 71 72 Respiratory 24 18 Rate Blood Pressure 115/57 115/65 O2 Sat by Pulse 97 100 100 Oximetry General appearance: Present: mild distress - EENT Eyes: PERRL, EOM intact ENT: hearing intact, clear oral mucosa Ears: bilateral: normal - Neck Neck: supple, normal ROM - Respiratory Respiratory: bilateral: rhonchi - Breasts Breasts: deferred - Cardiovascular Rhythm: regular Heart Sounds: Present: S1 & S2. Absent: gallop, rub Extremities: pulses intact, No edema, normal color, Full ROM - Gastrointestinal General gastrointestinal: Present: soft, non-tender, non-distended, normal bowel sounds Rectal Exam: deferred - Genitourinary Female genitourinary: deferred - Integumentary Integumentary: clear, warm, dry - Neurologic Neurologic: moves all extremities - Psychiatric Psychiatric: appropriate mood/affect - Labs CBC & Chem 7: 02/08/19 14:59 02/06/19 20:32 Labs: Abnormal lab results 02/08/19 Range/Units 14:59 Hgb 8.0 L D (10.1-14.3) gm/dl Hct 24.9 L D (30.3-42.9) %
[2019-02-09] MEDS: BACLOFEN 10 MG TAB PO SCH (10:54)
[2019-02-09] MEDS: GLYCOPYRROLATE 1 MG TAB PO SCH ×2 (10:54→22:07)
[2019-02-09] MEDS: SODIUM HYPOCHLORITE, DAKIN'S 1/2 STRENGTH (0.25%) 473 ML TOPICAL SOLN TP SCH ×2 (10:55→22:08)
[2019-02-09] MEDS: HEPARIN 5,000 UNIT/1 ML VIAL SUB-Q SCH ×2 (10:55→22:07)
[2019-02-09] MEDS: LANSOPRAZOLE 30 MG SOLUTAB FEEDTUBE SCH (10:55)
--- NOTE | 2019-02-09 12:27 | Progress Note ---
Assessment and Plan Patient awake, not following commands. Resting on T-tube, FiO2 28%. O2 saturation 92%. Patient afebrile, has leukocytosis. - Patient Problems (1) Tracheostomy dependent Current Visit: Yes Status: Acute Plan to address problem: Patient is on T-tube FiO2 28%. O2 saturation 92%. Tracheostomy care as per respiratory therapy. (2) Decubitus ulcers Current Visit: Yes Status: Acute Qualifiers: Pressure injury location: sacral region Pressure injury stage: unspecified pressure injury stage Qualified Code(s): L89.159 - Pressure ulcer of sacral region, unspecified stage Plan to address problem: Wound care. Patient is on Ceftriaxone. Management as per primary care. (3) Hypotension Current Visit: Yes Status: Acute Qualifiers: Hypotension type: unspecified hypotension type Qualified Code(s): I95.9 - Hypotension, unspecified Plan to address problem: Patient's BP is 114/63. Patient is on Dopamine and midodrine. (4) Sepsis Current Visit: Yes Status: Acute Qualifiers: Sepsis type: sepsis due to unspecified organism Sepsis acute organ dysfunction status: unspecified Qualified Code(s): A41.9 - Sepsis, unspecified organism Plan to address problem: Patient is on Ceftriaxone. (5) Coffee ground emesis Current Visit: Yes Status: Acute Plan to address problem: Management as per primary care and gastroenterology. Subjective Date of service: 02/09/19 Principal diagnosis: GI bleed Interval history: Patient awake, not following commands. Resting on T-tube, FiO2 28%. O2 saturation 92%. Patient afebrile, has leukocytosis. Objective Vital Signs - 12hr 02/09/19 02/09/19 01:58 07:33 Temperature 98.9 F 99.2 F Pulse Rate 71 72 Respiratory 24 18 Rate Blood Pressure 115/57 115/65 O2 Sat by Pulse 100 100 Oximetry Constitutional: no acute distress, other (weak, contracted) Eyes: non-icteric ENT: oropharynx moist Neck: supple Effort: normal Ascultation: Bilateral: other (prolonged expiratory phase) Cardiovascular: regular rate and rhythm Gastrointestinal: normoactive bowel sounds, non-distended Integumentary: normal Extremities: no cyanosis Neurologic: unable to assess Psychiatric: other (unable to assess due to mental status) CBC and BMP: 02/08/19 14:59 02/06/19 20:32 Abnormal lab findings: Abnormal Labs 02/06/19 02/06/19 02/06/19 20:32 20:32 Unknown WBC 17.8 H Hgb Hct MCV 77 L MCH 26 L RDW 17.0 H Lymph % (Auto) 12.[address] [place] # 1.2 H Seg Neutrophils % 80.7 H Seg Neutrophils # 14.4 H Chloride 84.1 L Carbon Dioxide 40 H BUN 50 H Creatinine 1.4 H Glucose 150 H POC Glucose AST 45 H C-Reactive Protein Albumin 3.7 L Urine pH 8.0 H Urine WBC (Auto) 135.0 H 02/07/19 02/07/19 02/07/19 02:07 10:58 12:26 WBC Hgb Hct MCV MCH RDW Lymph % (Auto) [place] # Seg Neutrophils % Seg Neutrophils # Chloride Carbon Dioxide BUN Creatinine Glucose POC Glucose 129 H 109 H AST C-Reactive Protein 8.70 H Albumin Urine pH Urine WBC (Auto) 02/08/19 02/08/19 02/08/19 06:00 06:46 14:59 WBC Hgb 8.0 L D Hct 24.9 L D MCV MCH RDW Lymph % (Auto) [place] # Seg Neutrophils % Seg Neutrophils # Chloride Carbon Dioxide BUN Creatinine Glucose POC Glucose 69 L 145 H AST C-Reactive Protein Albumin Urine pH Urine WBC (Auto) Chest x-ray: report reviewed (Tracheostomy tube present. No acute findings.), image reviewed
[2019-02-09] MEDS: LEVALBUTEROL 0.63 MG/3 ML NEBU IH SCH (18:34)
[2019-02-09] MEDS: cefTRIAXone/NS 1 GM/50 ML 1 GM/50 ML BAG IV SCH (22:07)
[2019-02-10] MEDS: LEVALBUTEROL 0.63 MG/3 ML NEBU IH SCH ×3 (00:06→20:44)
[2019-02-10] MEDS: MIDODRINE 5 MG TAB PO SCH ×3 (09:00→23:02)
[2019-02-10] MEDS: GLYCOPYRROLATE 1 MG TAB PO SCH ×2 (09:15→22:57)
[2019-02-10] MEDS: BACLOFEN 10 MG TAB PO SCH (09:15)
[2019-02-10] MEDS: LANSOPRAZOLE 30 MG SOLUTAB FEEDTUBE SCH (09:15)
[2019-02-10] MEDS: SODIUM HYPOCHLORITE, DAKIN'S 1/2 STRENGTH (0.25%) 473 ML TOPICAL SOLN TP SCH ×2 (09:16→22:57)
[2019-02-10] MEDS: HEPARIN 5,000 UNIT/1 ML VIAL SUB-Q SCH ×2 (09:17→22:58)
--- NOTE | 2019-02-10 10:13 | Progress Note ---
Assessment and Plan - Patient Problems (1) Coffee ground emesis Current Visit: Yes Status: Acute Plan to address problem: Follow GI, and monitor labs. (2) Tracheostomy dependent Current Visit: Yes Status: Acute Plan to address problem: supportive care. (3) Feeding by G-tube Current Visit: Yes Status: Acute Plan to address problem: manager therapy to see. Subjective Date of service: 02/10/19 Principal diagnosis: GI bleed Interval history: Patient seen/examined, resting in bed, notes/records reviewed. patient moved out of the ICU. No Notable GI bleed since admission. Patient seen/resting in bed, labs reviewed.24hrs event, unremarkable. Patient seen, resting in bed, still awaiting GI eval of the Peg tube leakage, so patient can be d/c back to the [place]. Objective - Constitutional Vitals: Vital Signs - 12hr 02/10/19 02/10/19 02/10/19 00:00 00:08 01:53 Temperature 97.7 F Pulse Rate 71 Pulse Rate [ 105 H Bilateral Throughout] Respiratory 22 Rate Respiratory 24 Rate [Bilateral Throughout] Blood Pressure 131/68 O2 Sat by Pulse 99 Oximetry O2 Sat by Pulse 99 Oximetry [ Assessment] 02/10/19 02/10/19 02/10/19 07:28 07:30 08:19 Temperature 100.4 F H Pulse Rate 77 Pulse Rate [ 81 Bilateral Throughout] Respiratory 18 Rate Respiratory 19 Rate [Bilateral Throughout] Blood Pressure 113/64 O2 Sat by Pulse 98 Oximetry O2 Sat by Pulse 100 Oximetry [ Assessment] General appearance: Present: mild distress - EENT Eyes: PERRL, EOM intact ENT: hearing intact, clear oral mucosa Ears: bilateral: normal - Neck Neck: supple, normal ROM - Respiratory Respiratory: bilateral: rhonchi - Breasts Breasts: deferred - Cardiovascular Rhythm: regular Heart Sounds: Present: S1 & S2. Absent: gallop, rub Extremities: pulses intact, No edema, normal color, Full ROM - Gastrointestinal General gastrointestinal: Present: soft, non-tender, non-distended, normal bowel sounds Rectal Exam: deferred - Genitourinary Female genitourinary: deferred - Integumentary Integumentary: clear, warm, dry - Musculoskeletal Musculoskeletal: 1, strength equal bilaterally - Labs CBC & Chem 7: 02/08/19 14:59 02/06/19 20:32 Labs: Abnormal lab results 02/09/19 02/10/19 02/10/19 Range/Units 18:49 00:02 06:48 POC Glucose 106 H 142 H 113 H (70-105)
--- NOTE | 2019-02-10 12:18 | Progress Note ---
Assessment and Plan Severe sepsis with shock, probably secondary to urinary tract infection. Urinary tract infection. Suspected gastrointestinal bleed, but with negative stool guaiac. Leukocytosis. Acute on chronic hypoxemic respiratory failure Acute kidney injury. History of diabetes. Anoxic encephalopathy. Adult failure to thrive - continue bronchodilators with pulmonary hygiene per RT - continue supplemental oxygen to keep O2 sat's > 90% - continue aspiration precautions - continue AB's; will de-escalate based on clinical and microbiologic data - enteral nutrition at goal rate as tolerated - continue glycemic control with SSI for target BG < 180 mg/dl - PT/OT as tolerated - mobility protocols for pressure ulcer prophylaxis - continue other care per attending ... re-evaluate in am & prn Subjective Date of service: 02/10/19 Principal diagnosis: Severe sepsis; UTI; Suspected G.I. bleed; Ac. on ch. hypoxemic resp failure Interval history: Patient is seen today for: Severe sepsis with shock; Urinary tract infection; Suspected gastrointestinal bleed; Leukocytosis; Acute on chronic hypoxemic respiratory failure; Acute kidney injury; DM II; Anoxic encephalopathy; Adult failure to thrive Seen and examined at bedside; 24hour events reviewed; nursing and respiratory care staff consulted; no adverse overnight events reported to me; resting peacefully in bed; doing better; AMS is persistent; remains on supplemental oxygen Objective Vital Signs - 12hr 02/10/19 02/10/19 02/10/19 01:53 07:28 07:30 Temperature 97.7 F Pulse Rate 71 Pulse Rate [ 81 Bilateral Throughout] Respiratory 22 Rate Respiratory 19 Rate [Bilateral Throughout] Blood Pressure 131/68 O2 Sat by Pulse 99 Oximetry O2 Sat by Pulse 100 Oximetry [ Assessment] 02/10/19 02/10/19 08:19 10:00 Temperature 100.4 F H Pulse Rate 77 Pulse Rate [ Bilateral Throughout] Respiratory 18 20 Rate Respiratory Rate [Bilateral Throughout] Blood Pressure 113/64 O2 Sat by Pulse 98 96 Oximetry O2 Sat by Pulse Oximetry [ Assessment] Constitutional: no acute distress, other (elderly looking AAF, normocephalic with mildly increased respiratory effort at rest) Eyes: non-icteric ENT: oropharynx moist Neck: supple, no lymphadenopathy, no JVD, other (+ midline tracheostomy tube) Effort: mildly labored Ascultation: Bilateral: diminished breath sounds, rhonchi Percussion: Bilateral: not dull Cardiovascular: regular rate and rhythm Gastrointestinal: normoactive bowel sounds, soft, non-tender, non-distended Integumentary: decubitus ulcer (sacral) Extremities: no cyanosis, no edema, pulses normal, no ischemia or petechiae Neurologic: unable to assess Psychiatric: other (unable to assess) CBC and BMP: 02/11/19 13:09 02/11/19 13:09 Abnormal lab findings: Abnormal Labs 02/06/19 02/06/19 02/06/19 20:32 20:32 Unknown WBC 17.8 H Hgb Hct MCV 77 L MCH 26 L RDW 17.0 H Lymph % (Auto) 12.0 L [place] # 1.2 H Seg Neutrophils % 80.7 H Seg Neutrophils # 14.4 H Chloride 84.1 L Carbon Dioxide 40 H BUN 50 H Creatinine 1.4 H Glucose 150 H POC Glucose AST 45 H C-Reactive Protein Albumin 3.7 L Urine pH 8.0 H Urine WBC (Auto) 135.0 H 02/07/19 02/07/19 02/07/19 02:07 10:58 12:26 WBC Hgb Hct MCV MCH RDW Lymph % (Auto) [place] # Seg Neutrophils % Seg Neutrophils # Chloride Carbon Dioxide BUN Creatinine Glucose POC Glucose 129 H 109 H AST C-Reactive Protein 8.70 H Albumin Urine pH Urine WBC (Auto) 02/08/19 02/08/19 02/08/19 06:00 06:46 14:59 WBC Hgb 8.0 L D Hct 24.9 L D MCV MCH RDW Lymph % (Auto) [place] # Seg Neutrophils % Seg Neutrophils # Chloride Carbon Dioxide BUN Creatinine Glucose POC Glucose 69 L 145 H AST C-Reactive Protein Albumin Urine pH Urine WBC (Auto) 02/09/19 02/10/19 02/10/19 18:49 00:02 06:48 WBC Hgb Hct MCV MCH RDW Lymph % (Auto) [place] # Seg Neutrophils % Seg Neutrophils # Chloride Carbon Dioxide BUN Creatinine Glucose POC Glucose 106 H 142 H 113 H AST C-Reactive Protein Albumin Urine pH Urine WBC (Auto) 02/10/19 11:44 WBC Hgb Hct MCV MCH RDW Lymph % (Auto) [place] # Seg Neutrophils % Seg Neutrophils # Chloride Carbon Dioxide BUN Creatinine Glucose POC Glucose 122 H AST C-Reactive Protein Albumin Urine pH Urine WBC (Auto) Allied health notes reviewed: nursing
[2019-02-10] MEDS: cefTRIAXone/NS 1 GM/50 ML 1 GM/50 ML BAG IV SCH (22:56)
[2019-02-10] MEDS: MAGNESIUM HYDROXIDE (MOM) ORAL LIQD UDC PO SCH (22:56)
--- NOTE | 2019-02-10 23:24 | Gastroenterology Progress Note ---
Assessment and Plan the leakage of the G tube is likely due to the bumper being in the incorrect position I repositioned the bumper so it is adjacent to the abdominal wall (but not tight against the abdominal wall as that can cause complications) Place dry gauze between the bumper and the abdominal skin and replaced twice daily Please call back for any questions or concerns or issues - Patient Problems (1) Coffee ground emesis Current Visit: Yes Status: Acute Subjective Date of service: 02/10/19 Principal diagnosis: Severe sepsis; UTI; Suspected G.I. bleed; Ac. on ch. hypoxemic resp failure Interval history: Called back for eval of PEG tube, there is leakage of fluid around the tubing Objective - Constitutional Vitals: Temp Pulse Resp BP Pulse Ox 98.6 F 80 20 95/58 97 02/10/19 22:00 02/10/19 20:45 02/10/19 22:00 02/10/19 22:00 02/10/19 20:45 General appearance: other - Gastrointestinal General gastrointestinal: Present: other (G tube in place with leakage around the tubing; the external bumper is not positioned correctly as it is 6-7cm away from the abdominal wall) - Labs CBC & Chem 7: 02/08/19 14:59 02/06/19 20:32 Labs: Laboratory Results - last 24 hr 02/10/19 02/10/19 02/10/19 00:02 06:48 11:44 POC Glucose 142 H 113 H 122 H 02/10/19 18:20 POC Glucose 121 H
[2019-02-11] MEDS: LEVALBUTEROL 0.63 MG/3 ML NEBU IH SCH ×3 (00:11→16:29)
--- NOTE | 2019-02-11 09:20 | Progress Note ---
Assessment and Plan Severe sepsis with shock, probably secondary to urinary tract infection. Urinary tract infection. Suspected gastrointestinal bleed, but with negative stool guaiac. Leukocytosis. Acute on chronic hypoxemic respiratory failure Acute kidney injury. History of diabetes. Anoxic encephalopathy. Adult failure to thrive -trach care, airway clearance, secretion management - continue bronchodilators with pulmonary hygiene per RT - continue supplemental oxygen to keep O2 sat's > 90% - continue aspiration precautions - continue AB's; will de-escalate based on clinical and microbiologic data - enteric nutrition at goal rate as tolerated - continue glycemic control with SSI for target BG < 180 mg/dl - mobility protocols for pressure ulcer prophylaxis - continue other care per attending -discharge planning Subjective Date of service: 02/11/19 Principal diagnosis: Severe sepsis; UTI; Suspected G.I. bleed; Ac. on ch. hypoxemic resp failure Interval history: Patient is seen today for: Severe sepsis with shock; Urinary tract infection; Suspected gastrointestinal bleed; Leukocytosis; Acute on chronic hypoxemic respiratory failure; Acute kidney injury; DM II; Anoxic encephalopathy; Adult failure to thrive Seen and examined at bedside; 24hour events reviewed; nursing and respiratory care staff consulted; no adverse overnight events reported to me; resting p eacefully in bed; Objective Vital Signs - 12hr 02/10/19 02/11/19 02/11/19 22:00 00:15 02:23 Temperature 98.6 F Pulse Rate 87 Pulse Rate [ 92 H Bilateral Throughout] Pulse Rate [ 88 From Monitor] Respiratory 22 Rate Respiratory 22 Rate [Bilateral Throughout] Blood Pressure Blood Pressure 95/58 [Right] O2 Sat by Pulse 100 100 Oximetry O2 Sat by Pulse Oximetry [ Assessment] 02/11/19 02/11/19 02/11/19 02:24 02:26 04:45 Temperature 99.8 F H Pulse Rate 88 Pulse Rate [ Bilateral Throughout] Pulse Rate [ From Monitor] Respiratory 22 Rate Respiratory Rate [Bilateral Throughout] Blood Pressure Blood Pressure 110/69 [Right] O2 Sat by Pulse 100 100 Oximetry O2 Sat by Pulse 100 Oximetry [ Assessment] 02/11/19 02/11/19 02/11/19 07:42 08:01 08:09 Temperature 99.5 F Pulse Rate 79 Pulse Rate [ 74 Bilateral Throughout] Pulse Rate [ From Monitor] Respiratory 18 Rate Respiratory 20 Rate [Bilateral Throughout] Blood Pressure 117/63 Blood Pressure [Right] O2 Sat by Pulse 99 100 Oximetry O2 Sat by Pulse Oximetry [ Assessment] Constitutional: no acute distress, other (elderly looking AAF, normocephalic with mildly increased respiratory effort at rest) Eyes: non-icteric ENT: oropharynx moist Neck: supple, no lymphadenopathy, no JVD, other (+ midline tracheostomy tube with frothy whitish secretions) Effort: mildly labored Ascultation: Bilateral: diminished breath sounds, rhonchi, other (prolonged expiratory phase) Percussion: Bilateral: not dull Cardiovascular: regular rate and rhythm Gastrointestinal: normoactive bowel sounds, soft, non-tender, non-distended Integumentary: decubitus ulcer (sacral) Extremities: no cyanosis, no edema, pulses normal, no ischemia or petechiae Neurologic: unable to assess Psychiatric: other (unable to assess) CBC and BMP: 02/11/19 13:09 02/11/19 13:09 Abnormal lab findings: Abnormal Labs 02/06/19 02/06/19 02/06/19 20:32 20:32 Unknown WBC 17.8 H Hgb Hct MCV 77 L MCH 26 L RDW 17.0 H Lymph % (Auto) 12.0 L [place] # 1.2 H Seg Neutrophils % 80.7 H Seg Neutrophils # 14.4 H Chloride 84.1 L Carbon Dioxide 40 H BUN 50 H Creatinine 1.4 H Glucose 150 H POC Glucose AST 45 H C-Reactive Protein Albumin 3.7 L Urine pH 8.0 H Urine WBC (Auto) 135.0 H 02/07/19 02/07/19 02/07/19 02:07 10:58 12:26 WBC Hgb Hct MCV MCH RDW Lymph % (Auto) [place] # Seg Neutrophils % Seg Neutrophils # Chloride Carbon Dioxide BUN Creatinine Glucose POC Glucose 129 H 109 H AST C-Reactive Protein 8.70 H Albumin Urine pH Urine WBC (Auto) 02/08/19 02/08/19 02/08/19 06:00 06:46 14:59 WBC Hgb 8.0 L D Hct 24.9 L D MCV MCH RDW Lymph % (Auto) [place] # Seg Neutrophils % Seg Neutrophils # Chloride Carbon Dioxide BUN Creatinine Glucose POC Glucose 69 L 145 H AST C-Reactive Protein Albumin Urine pH Urine WBC (Auto) 02/09/19 02/10/19 02/10/19 18:49 00:02 06:48 WBC Hgb Hct MCV MCH RDW Lymph % (Auto) [place] # Seg Neutrophils % Seg Neutrophils # Chloride Carbon Dioxide BUN Creatinine Glucose POC Glucose 106 H 142 H 113 H AST C-Reactive Protein Albumin Urine pH Urine WBC (Auto) 02/10/19 02/10/19 02/11/19 11:44 18:20 00:06 WBC Hgb Hct MCV MCH RDW Lymph % (Auto) [place] # Seg Neutrophils % Seg Neutrophils # Chloride Carbon Dioxide BUN Creatinine Glucose POC Glucose 122 H 121 H 115 H AST C-Reactive Protein Albumin Urine pH Urine WBC (Auto) 02/11/19 06:31 WBC Hgb Hct MCV MCH RDW Lymph % (Auto) [place] # Seg Neutrophils % Seg Neutrophils # Chloride Carbon Dioxide BUN Creatinine Glucose POC Glucose 109 H AST C-Reactive Protein Albumin Urine pH Urine WBC (Auto) Allied health notes reviewed: nursing
[2019-02-11] MEDS: BACLOFEN 10 MG TAB PO SCH (09:34)
[2019-02-11] MEDS: MIDODRINE 5 MG TAB PO SCH ×2 (09:34→15:26)
[2019-02-11] MEDS: LANSOPRAZOLE 30 MG SOLUTAB FEEDTUBE SCH (09:34)
[2019-02-11] MEDS: HEPARIN 5,000 UNIT/1 ML VIAL SUB-Q SCH (09:35)
[2019-02-11] MEDS: GLYCOPYRROLATE 1 MG TAB PO SCH (09:39)
--- NOTE | 2019-02-11 10:12 | Progress Note ---
Assessment and Plan - Patient Problems (1) Coffee ground emesis Current Visit: Yes Status: Acute (2) Tracheostomy dependent Current Visit: Yes Status: Acute (3) Feeding by G-tube Current Visit: Yes Status: Acute Subjective Date of service: 02/11/19 Principal diagnosis: Severe sepsis; UTI; Suspected G.I. bleed; Ac. on ch. hypoxemic resp failure Interval history: Patient seen/examined, resting in bed, notes/records reviewed. patient moved out of the ICU. No Notable GI bleed since admission. Patient seen/resting in bed, labs reviewed.24hrs event, unremarkable. Patient seen, resting in bed, still awaiting GI eval of the Peg tube leakage, so patient can be d/c back to the [place]. Patient seen/resting in bed, notes from GI reviewed, Labs reviewed, will see if ok to D/C back to the NH today. Objective - Constitutional Vitals: Vital Signs - 12hr 02/11/19 02/11/19 02/11/19 00:15 02:23 02:24 Temperature 99.8 F H Pulse Rate 87 88 Pulse Rate [ 92 H Bilateral Throughout] Respiratory 22 Rate Respiratory 22 Rate [Bilateral Throughout] Blood Pressure Blood Pressure [Right] O2 Sat by Pulse 100 100 Oximetry O2 Sat by Pulse Oximetry [ Assessment] 02/11/19 02/11/19 02/11/19 02:26 04:45 07:42 Temperature Pulse Rate Pulse Rate [ Bilateral Throughout] Respiratory Rate Respiratory Rate [Bilateral Throughout] Blood Pressure Blood Pressure 110/69 [Right] O2 Sat by Pulse 100 99 Oximetry O2 Sat by Pulse 100 Oximetry [ Assessment] 02/11/19 02/11/19 08:01 08:09 Temperature 99.5 F Pulse Rate 79 Pulse Rate [ 74 Bilateral Throughout] Respiratory 18 Rate Respiratory 20 Rate [Bilateral Throughout] Blood Pressure 117/63 Blood Pressure [Right] O2 Sat by Pulse 100 Oximetry O2 Sat by Pulse Oximetry [ Assessment] - Labs CBC & Chem 7: 02/08/19 14:59 02/06/19 20:32 Labs: Abnormal lab results 02/10/19 02/10/19 02/11/19 Range/Units 11:44 18:20 00:06 POC Glucose 122 H 121 H 115 H (70-105) 02/11/19 Range/Units 06:31 POC Glucose 109 H (70-105)
--- NOTE | 2019-02-11 10:18 | Discharge Summary ---
Providers - Providers Date of Admission: 02/07/19 00:16 Date of discharge: 02/11/19 Attending physician: NANDA WADDELL 02/06/19 23:49 Consult to Physician [CONS] Routine Comment: Consulting Provider: PIA VAIL Physician Instructions: PEG TUBE LEAKAGE./MALFUNCTION. Reason For Exam: coffee ground emesis 02/07/19 03:31 Consult to Physician [CONS] Routine Comment: Consulting Provider: GABRIEL OWEN Physician Instructions: will page/call to inform of admission Reason For Exam: ICU admission 02/07/19 04:54 Consult to Wound/ET Nurse [CONS] Routine Reason For Exam: wound eval 02/07/19 13:34 Consult to PICC Line RN [CONS] Urgent Reason For Exam: needs pressors Type Line:: PICC 02/07/19 19:57 Consult to Dietitian/Nutrition [CONS] Routine Physician Instructions: Assess nutrtn needs, initiate, modify, manage TF Reason For Exam: Reason for Consult: Write/Manage Tube Feeding Reason for Consult: Write/Manage Tube Feeding Primary care physician: NANDA WADDELL Hospitalization Reason for admission: Supposed gi bleed. Condition: Stable Disposition: DC/[place]-[facility] - Discharge Diagnoses (1) Coffee ground emesis Status: Resolved (2) Tracheostomy dependent Status: Chronic (3) Feeding by G-tube Status: Chronic Core Measure Documentation - Palliative Care Palliative Care/ Comfort Measures: Not Applicable - Core Measures Any of the following diagnoses?: none Exam - Constitutional Vitals: Temp Pulse Resp BP Pulse Ox 99.5 F 79 18 117/63 100 02/11/19 08:09 02/11/19 08:09 02/11/19 08:09 02/11/19 08:09 02/11/19 08:09 General appearance: Present: no acute distress, well-nourished - EENT Eyes: Present: PERRL ENT: hearing intact, clear oral mucosa - Neck Neck: Present: supple, normal ROM - Respiratory Respiratory effort: normal Respiratory: bilateral: rhonchi - Cardiovascular Heart Sounds: Present: S1 & S2. Absent: rub, click - Extremities Extremities: pulses symmetrical, No edema Peripheral Pulses: within normal limits - Abdominal General gastrointestinal: Present: soft, non-tender, non-distended, normal bowel sounds Female genitourinary: Present: deferred - Rectal Rectal Exam: deferred - Integumentary Integumentary: Present: clear, warm, dry - Musculoskeletal Musculoskeletal: gait normal, strength equal bilaterally Plan Diet: per dietitian instruction (Draw STST Cbc/bmp, call result before d/c.) Follow up with: NANDA WADDELL DO [Primary Care Provider] - 3-5 Days Forms: Accompanied Note
--- NOTE | 2019-02-11 10:48 | Gastroenterology Progress Note ---
Assessment and Plan the leakage of the G tube is likely due to the bumper being in the incorrect position I repositioned the bumper again so it is adjacent to the abdominal wall (but not tight against the abdominal wall as that can cause complications), please check daily to make sure it remains in position Place dry gauze between the bumper and the abdominal skin and replaced twice daily Please call back for any questions or concerns or issues May DC from GI standpoint - Patient Problems (1) Coffee ground emesis Current Visit: Yes Status: Resolved Subjective Date of service: 02/11/19 Principal diagnosis: Severe sepsis; UTI; Suspected G.I. bleed; Ac. on ch. hypoxemic resp failure Interval history: still a little leakage of fluid around the tubing, but not actual feeds that are leaking Objective - Constitutional Vitals: Temp Pulse Resp BP Pulse Ox 99.5 F 79 18 117/63 100 02/11/19 08:09 02/11/19 08:09 02/11/19 08:09 02/11/19 08:09 02/11/19 08:09 - Gastrointestinal Rectal Exam: other (the bumper has again moved off position so it is many cm away from abd wall) - Labs CBC & Chem 7: 02/08/19 14:59 02/06/19 20:32 Labs: Laboratory Results - last 24 hr 02/10/19 02/10/19 02/11/19 11:44 18:20 00:06 POC Glucose 122 H 121 H 115 H 02/11/19 06:31 POC Glucose 109 H
[2019-02-11 13:57] VITALS: BP 99/62
[2019-02-11 14:04] LABS: Basophils % (Auto) 0.2 % (0.0-1.8); Eosinophils # (Auto) 0.1 K/mm3 (0.0-0.4); Eosinophils % (Auto) 0.9 % (0.0-4.3); Hemoglobin 10.2 gm/dl (10.1-14.3); Lymphocytes # (Auto) 2.1 K/mm3 (1.2-5.4); Mean Corpuscular HGB Conc 32 % (30-34); Mean Corpuscular Volume 78 fl (79-97); Monocytes # (Auto) 0.6 K/mm3 (0.0-0.8); Monocytes % (Auto) 7.3 % (0.0-7.3); Platelet Count 364 K/mm3 (140-440); Red Blood Count 4.12 M/mm3 (3.65-5.03); Red Cell Distribution Width 17.3 % (13.2-15.2)
[2019-02-11 14:19] LABS: BUN/Creatinine Ratio 27; Blood Urea Nitrogen 16 mg/dL (7-17); Calcium 9.1 mg/dL (8.4-10.2); Hemolysis Index 9
[2019-02-11] MEDS: SODIUM HYPOCHLORITE, DAKIN'S 1/2 STRENGTH (0.25%) 473 ML TOPICAL SOLN TP SCH (15:27)
== END 2019-02-11 17:59 | DRG 698 ==
LOC: ED 19:41 → CC1 02-07 00:16 → 2B-ACE 02-08 16:44
PROVIDERS: ADMIT Internal Medicine Hematology & Oncology; ATTEND Internal Medicine Hematology & Oncology
DX: T83.518A Infection and inflammatory reaction due to other urinary catheter, initial encounter (principal); J96.21 Acute and chronic respiratory failure with hypoxia; R65.21 Severe sepsis with septic shock; A41.9 Sepsis, unspecified organism; N39.0 Urinary tract infection, site not specified; N17.9 Acute kidney failure, unspecified; I69.359 Hemiplegia and hemiparesis following cerebral infarction affecting unspecified side; K92.0 Hematemesis; G93.1 Anoxic brain damage, not elsewhere classified; R62.7 Adult failure to thrive; Y83.8 Other surgical procedures as the cause of abnormal reaction of the patient, or of later complication, without mention of misadventure at the time of the procedure; L89.159 Pressure ulcer of sacral region, unspecified stage; Z93.0 Tracheostomy status; Z79.82 Long term (current) use of aspirin; Z79.899 Other long term (current) drug therapy; Z79.4 Long term (current) use of insulin; Z68.26 Body mass index [BMI] 26.0-26.9, adult; Z86.74 Personal history of sudden cardiac arrest; Z90.710 Acquired absence of both cervix and uterus; Z90.10 Acquired absence of unspecified breast and nipple; Y92.098 Other place in other non-institutional residence as the place of occurrence of the external cause; K94.29 Other complications of gastrostomy; Y83.3 Surgical operation with formation of external stoma as the cause of abnormal reaction of the patient, or of later complication, without mention of misadventure at the time of the procedure
CPT/HCPCS: 36415; 71045; 80048; 80053; 81001; 82140; 82962; 85014; 85018; 85025; 86140; 86850; 86900; 86901; 87040; 87086; 87116; 93005; 93010; 94640; 94760; 96361; 96365; G0378; A6260; C9113; J0692; J0696; J1265; J1610; J1644; J3370; J7030; J7040; P9047

== ENCOUNTER 2019-07-13 00:13 | Inpatient (IN) | payer MEDICARE ==
[2019-07-13] MEDS ORDERED: SODIUM CHLORIDE 0.9% 1000 ML 1,000 ML ONE (00:33)
[2019-07-13] MEDS ORDERED: SODIUM CHLORIDE 0.9% 1000 ML IV SOLN IV ONE (00:39)
[2019-07-13] MEDS ORDERED: PIPERACILLIN/TAZOBACTAM 3.375 3.375 GM/50 ML BAG IV ONE (00:41)
--- NOTE | 2019-07-13 00:44 | Emergency Department Report ---
<CASTRO BLOOD - Last Filed: 07/13/19 03:14> ED General Adult HPI - General Chief complaint: Fever Stated complaint: SEPSIS Time Seen by Provider: 07/13/19 00:25 - Related Data Home Medications Medication Instructions Recorded Confirmed Last Taken Glycopyrrolate [Robinul] 1 mg PO BID 07/29/17 02/07/19 Unknown Ipratropium/Albuterol Sulfate 1 ampul IH Q6HR 07/29/17 02/07/19 Unknown [DUONEB *Not for PRN Use*] Acetaminophen [Acetaminophen 650 mg DE Q6H PRN 11/03/18 02/07/19 Unknown SUPPOS] Acetaminophen [Tylenol] 650 mg PO Q4H PRN 11/03/18 02/07/19 Unknown Aspirin [Aspirin BABY CHEW TAB] 81 mg PO QDAY 11/03/18 02/07/19 Unknown Baclofen [Lioresal] 10 mg PO QDAY 11/03/18 02/07/19 Unknown Cranberry Fruit Concentrate 450 mg PO QDAY 11/03/18 02/07/19 Unknown [Cranberry] Glucagon (Human Recomb) [Glucagen] 1 mg IM Q24H PRN 11/03/18 02/07/19 Unknown HYDROcodone/APAP 7.5-325 [[place] 1 each PO Q8HR PRN 11/03/18 02/07/19 Unknown 7.5-325 mg TAB] Hyoscyamine Sulfate [Hyoscyamine 0.125 mg PO Q4H PRN 11/03/18 02/07/19 Unknown Rapdis 0.125 mg] Insulin Glargine [Lantus VIAL] 10 unit SUB-Q QHS 11/03/18 02/07/19 Unknown LORazepam [Ativan] 1 mg PO Q4H PRN 11/03/18 02/07/19 Unknown Magnesium Hydroxide [Milk of 30 ml PO Q3D 11/03/18 02/07/19 Unknown Magnesia] Morphine Concentrate [MORPHINE 0.25 ml PO Q4HR PRN 11/03/18 02/07/19 Unknown Conc 20 MG/ML ORAL LIQ] Promethazine [Phenergan SUPPOS] 25 mg DE Q4H PRN 11/03/18 02/07/19 Unknown Promethazine [Phenergan] 25 mg PO Q4H PRN 11/03/18 02/07/19 Unknown Promethazine [Phenergan] 25 mg PO Q8HR PRN 11/03/18 02/07/19 Unknown Sennosides Tab [Senokot] 17.2 mg PO BID 11/03/18 02/07/19 Unknown bisacodyL [Dulcolax suppos] 10 mg DE QDAY PRN 11/03/18 02/07/19 Unknown Famotidine [Pepcid] 20 mg PO QDAY 02/07/19 02/07/19 Unknown Previous Rx's Medication Instructions Recorded Last Taken Type Acetaminophen [Acetaminophen TAB] 650 mg PO Q4H PRN tablet 11/19/18 Unknown Rx Hyoscyamine Subl [Levsin Sl 0.125 0.125 mg SL Q4H PRN tablet 11/19/18 Unknown Rx TAB] Lansoprazole Solutab [Prevacid 30 mg FEEDTUBE BID tab.rapdis 11/19/18 Unknown Rx Solutab] Morphine Concentrate [MORPHINE 5 mg PO Q4H PRN oral.liqd 11/19/18 Unknown Rx Conc 20 MG/ML ORAL LIQ] Sodium Bicarbonate 325 mg FEEDTUBE PRN PRN tablet 11/19/18 Unknown Rx Allergies Allergy/AdvReac Type Severity Reaction Status Date / Time No Known Allergies Allergy Unverified 09/30/13 14:18 ED Past Medical Hx - Medications Home Medications: Home Medications Medication Instructions Recorded Confirmed Last Taken Type Glycopyrrolate [Robinul] 1 mg PO BID 07/29/17 02/07/19 Unknown History Ipratropium/Albuterol Sulfate 1 ampul IH Q6HR 07/29/17 02/07/19 Unknown History [DUONEB *Not for PRN Use*] Acetaminophen [Acetaminophen 650 mg DE Q6H PRN 11/03/18 02/07/19 Unknown History SUPPOS] Acetaminophen [Tylenol] 650 mg PO Q4H PRN 11/03/18 02/07/19 Unknown History Aspirin [Aspirin BABY CHEW TAB] 81 mg PO QDAY 11/03/18 02/07/19 Unknown History Baclofen [Lioresal] 10 mg PO QDAY 11/03/18 02/07/19 Unknown History Cranberry Fruit Concentrate 450 mg PO QDAY 11/03/18 02/07/19 Unknown History [Cranberry] Glucagon (Human Recomb) [Glucagen] 1 mg IM Q24H PRN 11/03/18 02/07/19 Unknown History HYDROcodone/APAP 7.5-325 [[place] 1 each PO Q8HR PRN 11/03/18 02/07/19 Unknown History 7.5-325 mg TAB] Hyoscyamine Sulfate [Hyoscyamine 0.125 mg PO Q4H PRN 11/03/18 02/07/19 Unknown History Rapdis 0.125 mg] Insulin Glargine [Lantus VIAL] 10 unit SUB-Q QHS 11/03/18 02/07/19 Unknown History LORazepam [Ativan] 1 mg PO Q4H PRN 11/03/18 02/07/19 Unknown History Magnesium Hydroxide [Milk of 30 ml PO Q3D 11/03/18 02/07/19 Unknown History Magnesia] Morphine Concentrate [MORPHINE 0.25 ml PO Q4HR PRN 11/03/18 02/07/19 Unknown Hi story Conc 20 MG/ML ORAL LIQ] Promethazine [Phenergan SUPPOS] 25 mg DE Q4H PRN 11/03/18 02/07/19 Unknown History Promethazine [Phenergan] 25 mg PO Q4H PRN 11/03/18 02/07/19 Unknown History Promethazine [Phenergan] 25 mg PO Q8HR PRN 11/03/18 02/07/19 Unknown History Sennosides Tab [Senokot] 17.2 mg PO BID 11/03/18 02/07/19 Unknown History bisacodyL [Dulcolax suppos] 10 mg DE QDAY PRN 11/03/18 02/07/19 Unknown History Acetaminophen [Acetaminophen TAB] 650 mg PO Q4H PRN tablet 11/19/18 02/07/19 Unknown Rx Hyoscyamine Subl [Levsin Sl 0.125 0.125 mg SL Q4H PRN tablet 11/19/18 02/07/19 Unknown Rx TAB] Lansoprazole Solutab [Prevacid 30 mg FEEDTUBE BID tab.rapdis 11/19/18 02/07/19 Unknown Rx Solutab] Morphine Concentrate [MORPHINE 5 mg PO Q4H PRN oral.liqd 11/19/18 02/07/19 Unknown Rx Conc 20 MG/ML ORAL LIQ] Sodium Bicarbonate 325 mg FEEDTUBE PRN PRN tablet 11/19/18 02/07/19 Unknown Rx Famotidine [Pepcid] 20 mg PO QDAY 02/07/19 02/07/19 Unknown History ED Course - Reevaluation(s) Reevaluation #1: 07/13/19 03:15 Patient is actually a patient of and will now be admitted to his service ED Medical Decision Making - Lab Data Result diagrams: 07/13/19 01:32 07/13/19 01:32 ED Disposition Clinical Impression: Sepsis, Septic shock, Metabolic acidosis Failure to thrive Qualifiers: Failure to thrive age range: in adult Qualified Code(s): R62.7 - Adult failure to thrive Decubitus ulcers Qualifiers: Pressure injury location: unspecified location Pressure injury stage: unspecified pressure injury stage Qualified Code(s): L89.90 - Pressure ulcer of unspecified site, unspecified stage Pneumonia Qualifiers: Pneumonia type: due to unspecified organism Laterality: bilateral Lung lo cation: unspecified part of lung Qualified Code(s): J18.9 - Pneumonia, unspecified organism Acute renal failure Qualifiers: Acute renal failure type: unspecified Qualified Code(s): N17.9 - Acute kidney failure, unspecified Disposition: DC-[id number] OP ADMIT IP TO THIS HOSP Is pt being admited?: Yes Does the pt Need Aspirin: No Condition: Stable Time of Disposition: 03:16 <ALIYAH ESPINOZA - Last Filed: 07/14/19 16:43> ED General Adult HPI - General Source: healthcare interpreter Mode of arrival: Stretcher Limitations: Physical Limitation, Other - History of Present Illness Initial comments: Patient is 73 years old female, fdc patient from [facility]. Patient had history of cardiac arrest and anoxic brain injury, CVA, chronic respiratory failure with tracheostomy tube in place. Patient is DNR and hospice. Patient brought to the emergency room via EMS for evaluation of possible sepsis. Family stopped all medication 4 days ago but 1 of the family member came today to the fdc and he asked the patient to be sent to the ER for treatment of sepsis. Patient is very contracted, not communicating. Severity scale (0 -10): 0 ED Review of Systems ROS: Stated complaint: SEPSIS Other details as noted in HPI Comment: Unobtainable due to pts medical conditions ED Past Medical Hx - Past Medical History Hx Hypertension: Yes Hx Heart Attack/AMI: Yes (Cardiac arrest) Hx Diabetes: Yes Hx Liver Disease: No Hx Renal Disease: No Hx Seizures: No Hx Psychiatric Treatment: Yes (schizo) Hx Asthma: No Hx HIV: No Additional medical history: dysphagia, g-tube, trach, anoxic brain injury - Surgical History Hx Breast Surgery: Yes (Mastectomy 2002) Additional Surgical History: Hysterectomy 1974 - Social History Smoking Status: Never Smoker ED Physical Exam - General Limitations: Physical Limitation, Other General appearance: obtunded - ENT ENT exam: Present: mucous membranes dry - Neck Neck exam: Present: other (Tracheostomy in place.) - Respiratory Respiratory exam: Present: rales - Cardiovascular Cardiovascular Exam: Present: tachycardia - GI/Abdominal GI/Abdominal exam: Present: soft. Absent: distended - Extremities Exam Extremities exam: Present: other (Contracted.) - Neurological Exam Neurological exam: Present: altered - Skin Skin exam: Present: warm, dry, other (Patient with multiple decubitus ulcer wound with greenish,purulent Discharge.) ED Course Vital Signs 07/13/19 07/13/19 07/13/19 00:26 01:40 02:15 Temperature 98 F Pulse Rate 103 H 102 H Respiratory 20 14 14 Rate Blood Pressure Blood Pressure 101/84 66/48 93/22 [Left] O2 Sat by Pulse 90 89 87 Oximetry 07/13/19 07/13/19 04:02 05:25 Temperature 97.5 F L Pulse Rate 101 H Respiratory 24 22 Rate Blood Pressure 130/52 Blood Pressure 157/30 [Left] O2 Sat by Pulse 91 100 Oximetry - Central Line Placement Left SC Consent Obtained: emergent situation Time Out Performed: Yes Patient Placed on Monitor/Pulse Ox: Yes MD Prep: mask, gown, gloves Central Line Prep: Povidone-Iodine 1%, Chlorhexidine scrub, sterile drapes applied Local Anesthesia Used: Lidocaine 2% Amount of Anesthesia Used (mls): 5 Central Line Lumen Inserted: triple Bloods Obtained for Lab: Yes Central Line Position: good blood return, all ports aspirated, flus, sutured in place with 2-0 Dressing Applied: Tegaderm, sterile gauze/tape Post Procedure X-Ray: tip of catheter in good p Patient Tolerated Procedure: well, no complications Complications: none ED Medical Decision Making - Lab Data Result diagrams: 07/14/19 04:43 07/14/19 04:43 - Radiology Data Radiology results: report reviewed - Medical Decision Making Patient is 73 years old female, fdc patient from [facility]. Patient had history of cardiac arrest and anoxic brain injury, CVA, chronic respiratory failure with tracheostomy tube in place. Patient is DNR and hospice. Patient brought to the emergency room via EMS for evaluation of possible sepsis. Family stopped all medication 4 days ago but 1 of the family member came today to the fdc and he asked the patient to be sent to the ER for treatment of sepsis. Patient is very contracted, not communicating. Patient is very contracted, very dehydrated. Nurses are unable to get a peripheral line. I placed a left subclavian central line for resuscitation. Patient received normal saline, Zosyn. Chest x-ray showed patchy infiltrate consistent with pneumonia. Lactic acid is 21. Patient with very high mortality rate and a very poor prognosis. I discussed the patient with Dr. Bijal Painter, she agreed to admit the patient to medical service for further management. Critical Care Time: Yes Critical care time in (mins) excluding proc time.: 30 Critical care attestation.: If time is entered above; I have spent that time in minutes in the direct care of this critically ill patient, excluding procedure time. ED Disposition Is pt being admited?: Yes
[2019-07-13 02:03] LABS: Hematocrit 24.2 % (30.3-42.9); Hemoglobin 7.6 gm/dl (10.1-14.3); Mean Corpuscular HGB Conc 31 % (30-34); Mean Corpuscular Volume 75 fl (79-97); Platelet Count 666 K/mm3 (140-440); Red Blood Count 3.22 M/mm3 (3.65-5.03)
--- NOTE | 2019-07-13 02:11 | XRay Report ---
CHEST 1 VIEW INDICATION: sepsis. COMPARISON: 02/06/2019 FINDINGS: Support devices: Tracheostomy remains in satisfactory position. There is a new left subclavian cathet er, tip projects over the SVC in expected position. Heart: Normal. Lungs/Pleura: Within both lungs, greater on the left, there are somewhat nodular patchy pulmonary opa cities. These are approximately 1 cm. No pleural abnormality. IMPRESSION: 1. Given the history of sepsis, the somewhat nodular patchy pulmonary opacities, new since the prior exam, are concerning for septic emboli. These are greatest in the left lower lobe. Multifocal pneumon ia or even metastatic disease could conceivably have this appearance. Signer Name: Destin Hassan MD Signed: 07/13/2019 2:07 AM Workstation Name: [id number]
[2019-07-13 02:13] LABS: Albumin 2.1 g/dL (3.9-5); Calcium 9.2 mg/dL (8.4-10.2)
[2019-07-13 02:28] LABS: Red Cell Distribution Width 21.1 % (13.2-15.2)
[2019-07-13 04:03] LABS: Band Neutrophils # (Manual) 2.7 K/mm3; Basophils % (Manual) 0 % (0.0-1.8); Eosinophils % (Manual) 0 % (0.0-4.3); Total Cells Counted 100
[2019-07-13 04:06] LABS: Anisocytosis 1+; Hypochromasia 1+
[2019-07-13 04:07] LABS: Macrocytosis Rare; Platelet Estimate Consistent w Auto
[2019-07-13] MEDS: SODIUM CHLORIDE 0.9% 1000 ML 1,000 ML IV SCH (14:15)
[2019-07-13] MEDS ORDERED: SODIUM CHLORIDE 0.9% 500 ML IVPB IV STA (15:09)
[2019-07-13] MEDS ORDERED: SODIUM CHLORIDE 0.9% 500 ML 500 ML IV ONE (16:00)
[2019-07-13] MEDS: cefTRIAXone/NS 1 GM/50 ML 1 GM/50 ML BAG IV SCH (16:25)
--- NOTE | 2019-07-13 20:39 | History and Physical Report ---
History of Present Illness Date of examination: 07/13/19 Date of admission: 07/13/19 04:32 Chief complaint: lethargy/AMS. History of present illness: Patient presented from the [facility] due to the above reason. She was seen in ER , W/up, and admitted for reasons of septic shock.She was started on IV ABX, hydrated, present of renal failure, probably due to severe dehydration.Lactic acid elevated, and coming down with IBX infusion.Nutrition consult. will consult renal , if no improvement in her subsequent labs. Will continue hydration, and current management. Patient currently in hospice, but family feud in progress. CXY revealed possible septic emboli vs others. Past History Past Medical History: stroke Social history: no significant social history, other ([place]ives in the [place].) Medications and Allergies Allergies Allergy/AdvReac Type Severity Reaction Status Date / Time No Known Allergies Allergy Unverified 09/30/13 14:18 Home Medications Medication Instructions Recorded Confirmed Last Taken Type Glycopyrrolate [Robinul] 1 mg PO BID 07/29/17 02/07/19 Unknown History Ipratropium/Albuterol Sulfate 1 ampul IH Q6HR 07/29/17 02/07/19 Unknown History [DUONEB *Not for PRN Use*] Acetaminophen [Acetaminophen 650 mg VT Q6H PRN 11/03/18 02/07/19 Unknown History SUPPOS] Acetaminophen [Tylenol] 650 mg PO Q4H PRN 11/03/18 02/07/19 Unknown History Aspirin [Aspirin BABY CHEW TAB] 81 mg PO QDAY 11/03/18 02/07/19 Unknown History Baclofen [Lioresal] 10 mg PO QDAY 11/03/18 02/07/19 Unknown History Cranberry Fruit Concentrate 450 mg PO QDAY 11/03/18 02/07/19 Unknown History [Cranberry] Glucagon (Human Recomb) [Glucagen] 1 mg IM Q24H PRN 11/03/18 02/07/19 Unknown History HYDROcodone/APAP 7.5-325 [[place] 1 each PO Q8HR PRN 11/03/18 02/07/19 Unknown History 7.5-325 mg TAB] Hyoscyamine Sulfate [Hyoscyamine 0.125 mg PO Q4H PRN 11/03/18 02/07/19 Unknown History Rapdis 0.125 mg] Insulin Glargine [Lantus VIAL] 10 unit SUB-Q QHS 11/03/18 02/07/19 Unknown History LORazepam [Ativan] 1 mg PO Q4H PRN 11/03/18 02/07/19 Unknown History Magnesium Hydroxide [Milk of 30 ml PO Q3D 11/03/18 02/07/19 Unknown History Magnesia] Morphine Concentrate [MORPHINE 0.25 ml PO Q4HR PRN 11/03/18 02/07/19 Unknown History Conc 20 MG/ML ORAL LIQ] Promethazine [Phenergan SUPPOS] 25 mg [place] Q4H PRN 11/03/18 02/07/19 Unknown History Promethazine [Phenergan] 25 mg PO Q4H PRN 11/03/18 02/07/19 Unknown History Promethazine [Phenergan] 25 mg PO Q8HR PRN 11/03/18 02/07/19 Unknown History Sennosides Tab [Senokot] 17.2 mg PO BID 11/03/18 02/07/19 Unknown History bisacodyL [Dulcolax suppos] 10 mg [place] QDAY PRN 11/03/18 02/07/19 Unknown History Acetaminophen [Acetaminophen TAB] 650 mg PO Q4H PRN tablet 11/19/18 02/07/19 Unknown Rx Hyoscyamine Subl [Levsin Sl 0.125 0.125 mg SL Q4H PRN tablet 11/19/18 02/07/19 Unknown Rx TAB] Lansoprazole Solutab [Prevacid 30 mg FEEDTUBE BID tab.rapdis 11/19/18 02/07/19 Unknown Rx Solutab] Morphine Concentrate [MORPHINE 5 mg PO Q4H PRN oral.liqd 11/19/18 02/07/19 Unknown Rx Conc 20 MG/ML ORAL LIQ] Sodium Bicarbonate 325 mg FEEDTUBE PRN PRN tablet 11/19/18 02/07/19 Unknown Rx Famotidine [Pepcid] 20 mg PO QDAY 02/07/19 02/07/19 Unknown History Active Meds: Active Medications Sodium Chloride (Nacl 0.9% 1000 Ml) 1,000 mls @ 125 mls/hr IV DIRECT TIMMY Last Admin: 07/13/19 14:15 Dose: 125 mls/hr Documented by: Ceftriaxone Sodium (Rocephin/Ns 1 Gm/50 Ml) 1 gm in 50 mls @ 100 mls/hr IV Q24H TIMMY Last Admin: 07/13/19 16:25 Dose: 100 mls/hr Documented by: Review of Systems Constitutional: weight loss, anorexia, lethargy Breasts: deferred Exam - Constitutional Vitals: Temp Pulse Resp BP Pulse Ox 98.3 F 69 20 44/23 95 07/13/19 13:12 07/13/19 13:12 07/13/19 13:12 07/13/19 13:14 07/13/19 14:45 General appearance: Present: severe distress, well-nourished - EENT Eyes: Present: PERRL ENT: hearing intact, clear oral mucosa - Neck Neck: Present: supple, normal ROM - Respiratory Respiratory: bilateral: rhonchi - Cardiovascular Heart Sounds: Present: S1 & S2. Absent: rub, click - Extremities Extremities: pulses symmetrical, No edema Peripheral Pulses: within normal limits - Abdominal General gastrointestinal: Present: soft, non-tender, non-distended, normal bowel sounds Female genitourinary: Present: deferred - Rectal Rectal Exam: deferred - Integumentary Integumentary: Present: clear, warm, dry - Musculoskeletal Musculoskeletal: generalized weakness Results - Labs CBC & Chem 7: 07/13/19 01:32 07/13/19 01:32 Labs: Abnormal lab results 07/13/19 07/13/19 07/13/19 Range/Units 01:32 01:32 01:32 WBC 30.1 H (4.5-11.0) K/mm3 RBC 3.22 L (3.65-5.03) M/mm3 Hgb 7.6 L (10.1-14.3) gm/dl Hct 24.2 L (30.3-42.9) % MCV 75 L (79-97) fl MCH 24 L (28-32) pg RDW 21.1 H (13.2-15.2) % Plt Count 666 H (140-440) K/mm3 Seg Neuts % (Manual) 82.0 H (40.0-70.0) % Lymphocytes % (Manual) 4.0 L (13.4-35.0) % Seg Neutrophils # Man 24.7 H (1.8-7.7) K/mm3 Monocytes # (Manual) 1.5 H (0.0-0.8) K/mm3 Potassium 5.4 H (3.6-5.0) mmol/L Chloride 69.6 L (98-107) mmol/L Carbon Dioxide 20 L (22-30) mmol/L BUN 152 H (7-17) mg/dL Creatinine 3.8 H (0.7-1.2) mg/dL Glucose 193 H (65-100) mg/dL Lactic Acid 21.60 H* (0.7-2.0) mmol/L AST 131 H (5-40) units/L Albumin 2.1 L (3.9-5) g/dL 07/13/19 07/13/19 07/13/19 Range/Units 03:40 09:37 14:03 WBC (4.5-11.0) K/mm3 RBC (3.65-5.03) M/mm3 Hgb (10.1-14.3) gm/dl Hct (30.3-42.9) % MCV (79-97) fl MCH (28-32) pg RDW (13.2-15.2) % Plt Count (140-440) K/mm3 Seg Neuts % (Manual) (40.0-70.0) % Lymphocytes % (Manual) (13.4-35.0) % Seg Neutrophils # Man (1.8-7.7) K/mm3 Monocytes # (Manual) (0.0-0.8) K/mm3 Potassium (3.6-5.0) mmol/L Chloride (98-107) mmol/L Carbon Dioxide (22-30) mmol/L BUN (7-17) mg/dL Creatinine (0.7-1.2) mg/dL Glucose (65-100) mg/dL Lactic Acid 18.50 H* 6.10 H* 2.80 H* (0.7-2.0) mmol/L AST (5-40) units/L Albumin (3.9-5) g/dL 07/13/19 07/13/19 Range/Units 15:12 18:52 WBC (4.5-11.0) K/mm3 RBC (3.65-5.03) M/mm3 Hgb (10.1-14.3) gm/dl Hct (30.3-42.9) % MCV (79-97) fl MCH (28-32) pg RDW (13.2-15.2) % Plt Count (140-440) K/mm3 Seg Neuts % (Manual) (40.0-70.0) % Lymphocytes % (Manual) (13.4-35.0) % Seg Neutrophils # Man (1.8-7.7) K/mm3 Monocytes # (Manual) (0.0-0.8) K/mm3 Potassium (3.6-5.0) mmol/L Chloride (98-107) mmol/L Carbon Dioxide (22-30) mmol/L BUN (7-17) mg/dL Creatinine (0.7-1.2) mg/dL Glucose (65-100) mg/dL Lactic Acid 2.90 H* 2.30 H* (0.7-2.0) mmol/L AST (5-40) units/L Albumin (3.9-5) g/dL Assessment and Plan - Patient Problems (1) Septic shock Current Visit: Yes Status: Acute Plan to address problem: Treat etiology. (2) Acute renal failure Current Visit: Yes Status: Acute Qualifiers: Acute renal failure type: unspecified Qualified Code(s): N17.9 - Acute kidney failure, unspecified Plan to address problem: continue hydration. (3) Decubitus ulcers Current Visit: Yes Status: Acute Qualifiers: Pressure injury location: unspecified location Pressure injury stage: unspecified pressure injury stage Qualified Code(s): L89.90 - Pressure ulcer of unspecified site, unspecified stage Plan to address problem: chronic.Wound care when indicated. (4) Failure to thrive Current Visit: Yes Status: Acute Qualifiers: Failure to thrive age range: in adult Qualified Code(s): R62.7 - Adult failure to thrive (5) Metabolic acidosis Current Visit: Yes Status: Acute Plan to address problem: Improving. (6) Pneumonia Current Visit: Yes Status: Acute Qualifiers: Pneumonia type: due to unspecified organism Laterality: bilateral Lung location: unspecified part of lung Qualified Code(s): J18.9 - Pneumonia, unspecified organism Plan to address problem: Continue with ABX.
[2019-07-13] MEDS ORDERED: SODIUM CHLORIDE 0.9% 1000 ML 1,000 ML IV SCH (21:45)
[2019-07-14 05:08] LABS: Mean Corpuscular HGB Conc 31 % (30-34); Mean Corpuscular Volume 73 fl (79-97); Platelet Count 446 K/mm3 (140-440); Red Blood Count 2.57 M/mm3 (3.65-5.03)
[2019-07-14] MEDS: SODIUM CHLORIDE 0.9% 1000 ML 1,000 ML IV SCH ×2 (05:08→19:53)
[2019-07-14 05:15] LABS: Hematocrit 18.8 % (30.3-42.9); Hemoglobin 5.8 gm/dl (10.1-14.3); Red Cell Distribution Width 21.1 % (13.2-15.2)
[2019-07-14 05:32] LABS: Albumin 1.4 g/dL (3.9-5)
[2019-07-14 05:36] LABS: Bacteria,Urine 4+ /HPF (Negative); Bilirubin,Urine NEG (Negative); Blood,Urine LG (Negative); Color,Urine Amber (Yellow); Urobilinogen,Urine < 2.0 mg/dL (<2.0)
[2019-07-14 06:02] LABS: Band Neutrophils # (Manual) 2.4 K/mm3; Basophils % (Manual) 0 % (0.0-1.8); Eosinophils % (Manual) 0 % (0.0-4.3); Total Cells Counted 100
[2019-07-14 06:03] LABS: Anisocytosis 1+; Hypochromasia 1+; Stomatocytes Few; Target Cells Few
[2019-07-14 06:04] LABS: Platelet Estimate Consistent w Auto
--- NOTE | 2019-07-14 08:37 | Consultation ---
History of Present Illness Consult date: 07/14/19 Requesting physician: NANDA WADDELL Reason for consult: other (Acute Hypoxemic Respiratory Failure; S/P Tracheostomy) [facility] (Full dictation # [id number]) Please see dictated notes for full details Past History Past Medical History: stroke Social history: no significant social history, other ([place]ives [place] the [place].) Medications and Allergies Allergies Allergy/AdvReac Type Severity Reaction Status Date / Time No Known Allergies Allergy Unverified 09/30/13 14:18 Home Medications Medication Instructions Recorded Confirmed Last Taken Type Glycopyrrolate [Robinul] 1 mg PO BID 07/29/17 02/07/19 Unknown History Ipratropium/Albuterol Sulfate 1 ampul IH Q6HR 07/29/17 02/07/19 Unknown History [DUONEB *Not for PRN Use*] Acetaminophen [Acetaminophen 650 mg MN Q6H PRN 11/03/18 02/07/19 Unknown History SUPPOS] Acetaminophen [Tylenol] 650 mg PO Q4H PRN 11/03/18 02/07/19 Unknown History Aspirin [Aspirin BABY CHEW TAB] 81 mg PO QDAY 11/03/18 02/07/19 Unknown History Baclofen [Lioresal] 10 mg PO QDAY 11/03/18 02/07/19 Unknown History Cranberry Fruit Concentrate 450 mg PO QDAY 11/03/18 02/07/19 Unknown History [Cranberry] Glucagon (Human Recomb) [Glucagen] 1 mg IM Q24H PRN 11/03/18 02/07/19 Unknown History HYDROcodone/APAP 7.5-325 [[place] 1 each PO Q8HR PRN 11/03/18 02/07/19 Unknown History 7.5-325 mg TAB] Hyoscyamine Sulfate [Hyoscyamine 0.125 mg PO Q4H PRN 11/03/18 02/07/19 Unknown History Rapdis 0.125 mg] Insulin Glargine [Lantus VIAL] 10 unit SUB-Q QHS 11/03/18 02/07/19 Unknown History LORazepam [Ativan] 1 mg PO Q4H PRN 11/03/18 02/07/19 Unknown History Magnesium Hydroxide [Milk of 30 ml PO Q3D 11/03/18 02/07/19 Unknown History Magnesia] Morphine Concentrate [MORPHINE 0.25 ml PO Q4HR PRN 11/03/18 02/07/19 Unknown History Conc 20 MG/ML ORAL LIQ] Promethazine [Phenergan SUPPOS] 25 mg MN Q4H PRN 11/03/18 02/07/19 Unknown Hi story Promethazine [Phenergan] 25 mg PO Q4H PRN 11/03/18 02/07/19 Unknown History Promethazine [Phenergan] 25 mg PO Q8HR PRN 11/03/18 02/07/19 Unknown History Sennosides Tab [Senokot] 17.2 mg PO BID 11/03/18 02/07/19 Unknown History bisacodyL [Dulcolax suppos] 10 mg MN QDAY PRN 11/03/18 02/07/19 Unknown History Acetaminophen [Acetaminophen TAB] 650 mg PO Q4H PRN tablet 11/19/18 02/07/19 Unknown Rx Hyoscyamine Subl [Levsin Sl 0.125 0.125 mg SL Q4H PRN tablet 11/19/18 02/07/19 Unknown Rx TAB] Lansoprazole Solutab [Prevacid 30 mg FEEDTUBE BID tab.rapdis 11/19/18 02/07/19 Unknown Rx Solutab] Morphine Concentrate [MORPHINE 5 mg PO Q4H PRN oral.liqd 11/19/18 02/07/19 Unknown Rx Conc 20 MG/ML ORAL LIQ] Sodium Bicarbonate 325 mg FEEDTUBE PRN PRN tablet 11/19/18 02/07/19 Unknown Rx Famotidine [Pepcid] 20 mg PO QDAY 02/07/19 02/07/19 Unknown History Active Meds: Active Medications Sodium Chloride (Nacl 0.9% 1000 Ml) 1,000 mls @ 125 mls/hr IV DIRECT TIMMY Last Admin: 07/14/19 05:08 Dose: 125 mls/hr Documented by: Ceftriaxone Sodium (Rocephin/Ns 1 Gm/50 Ml) 1 gm in 50 mls @ 100 mls/hr IV Q24H [facility] Last Admin: 07/13/19 16:25 Dose: 100 mls/hr Documented by: Sodium Chloride (Nacl 0.9% 1000 Ml) 1,000 mls @ 150 mls/hr IV DIRECT TIMMY Physical Examination Vital signs: Vital Signs Resp BP Pulse Ox 20 101/84 90 07/13/19 00:26 07/13/19 00:26 07/13/19 00:26 Results - Laboratory Findings CBC and BMP: 07/14/19 04:43 07/15/19 08:53 Abnormal lab findings: Abnormal Labs 07/13/19 07/13/19 07/13/19 01:32 01:32 01:32 WBC 30.1 H RBC 3.22 L Hgb 7.6 L Hct 24.2 L MCV 75 L MCH 24 L RDW 21.1 H Plt Count 666 H Seg Neuts % (Manual) 82.0 H Lymphocytes % (Manual) 4.0 L Seg Neutrophils # Man 24.7 H Lymphocytes # (Manual) Monocytes # (Manual) 1.5 H Potassium 5.4 H Chloride 69.6 L Carbon Dioxide 20 L BUN 152 H Creatinine 3.8 H Glucose 193 H Lactic Acid 21.60 H* Calcium AST 131 H Total Protein Albumin 2.1 L Urine WBC (Auto) 07/13/19 07/13/19 07/13/19 03:40 09:37 14:03 WBC RBC Hgb Hct MCV MCH RDW Plt Count Seg Neuts % (Manual) Lymphocytes % (Manual) Seg Neutrophils # Man Lymphocytes # (Manual) Monocytes # (Manual) Potassium Chloride Carbon Dioxide BUN Creatinine Glucose Lactic Acid 18.50 H* 6.10 H* 2.80 H* Calcium AST Total Protein Albumin Urine WBC (Auto) 07/13/19 07/13/19 07/14/19 15:12 18:52 04:43 WBC 29.7 H RBC 2.57 L Hgb 5.8 L* Hct 18.8 L* MCV 73 L MCH 23 L RDW 21.1 H Plt Count 446 H Seg Neuts % (Manual) 85.0 H Lymphocytes % (Manual) 3.0 L Seg Neutrophils # Man 25.2 H Lymphocytes # (Manual) 0.9 L Monocytes # (Manual) 1.2 H Potassium Chloride Carbon Dioxide BUN Creatinine Glucose Lactic Acid 2.90 H* 2.30 H* Calcium AST Total Protein Albumin Urine WBC (Auto) 07/14/19 07/14/19 07/14/19 04:43 04:43 07:44 WBC RBC Hgb Hct MCV MCH RDW Plt Count Seg Neuts % (Manual) Lymphocytes % (Manual) Seg Neutrophils # Man Lymphocytes # (Manual) Monocytes # (Manual) Potassium 2.8 L* D Chloride 97.6 L Carbon Dioxide BUN 144 H Creatinine 2.8 H Glucose 407 H Lactic Acid 3.10 H* 2.50 H* Calcium 7.0 L D AST 65 H Total Protein 5.6 L D Albumin 1.4 L Urine WBC (Auto) 07/14/19 Unknown WBC RBC Hgb Hct MCV MCH RDW Plt Count Seg Neuts % (Manual) Lymphocytes % (Manual) Seg Neutrophils # Man Lymphocytes # (Manual) Monocytes # (Manual) Potassium Chloride Carbon Dioxide BUN Creatinine Glucose Lactic Acid Calcium AST Total Protein Albumin Urine WBC (Auto) 37.0 H
[2019-07-14] MEDS: SODIUM HYPOCHLORITE, DAKIN'S 1/2 STRENGTH (0.25%) 473 ML TOPICAL SOLN TP SCH ×2 (09:35→22:13)
[2019-07-14] MEDS ORDERED: SODIUM CHLORIDE 0.9% 1000 ML 1,000 ML IV SCH (11:00)
[2019-07-14] MEDS ORDERED: SODIUM CHLORIDE 0.9% 500 ML 500 ML IV ONE (11:57)
--- NOTE | 2019-07-14 17:51 | Consultation ---
History of Present Illness - Reason for Consult Consult date: 07/14/19 acute renal failure, hypokalemia Requesting physician: NANDA WADDELL - History of Present Illness This is 73 yo F [facility] Res[facility] with h/o HTN, [place], DM, Schizophrenia, VIN S/P Trach and Peg placement, who was admitted for severe anemia and hypotension, BP was as low as 50/30s, Labs showed increased lactic acid level, with Hb as low as 5.8. As per PCP note, pt is refusing blood transfusions. Patient was in hospice, however due to family feud in progress unclear code status at present. Labs also showed elevated BUN/Cr at 152/3.8mg/dl along with hypokalemia (K2.8) for which renal consult is requested. Previous Cr was 0.6 in 01/2019. Pt is non-verbal, history obtained by chart review. Past History Past Medical History: stroke Social history: no significant social history, other (Lives in the [place].) Medications and Allergies Allergies Allergy/AdvReac Type Severity Reaction Status Date / Time No Known Allergies Allergy Unverified 09/30/13 14:18 Home Medications Medication Instructions Recorded Confirmed Last Taken Type Glycopyrrolate [Robinul] 1 mg PO BID 07/29/17 02/07/19 Unknown History Ipratropium/Albuterol Sulfate 1 ampul IH Q6HR 07/29/17 02/07/19 Unknown History [DUONEB *Not for PRN Use*] Acetaminophen [Acetaminophen 650 mg ND Q6H PRN 11/03/18 02/07/19 Unknown History SUPPOS] Acetaminophen [Tylenol] 650 mg PO Q4H PRN 11/03/18 02/07/19 Unknown History Aspirin [Aspirin BABY CHEW TAB] 81 mg PO QDAY 11/03/18 02/07/19 Unknown History Baclofen [Lioresal] 10 mg PO QDAY 11/03/18 02/07/19 Unknown History Cranberry Fruit Concentrate 450 mg PO QDAY 11/03/18 02/07/19 Unknown History [Cranberry] Glucagon (Human Recomb) [Glucagen] 1 mg IM Q24H PRN 11/03/18 02/07/19 Unknown History HYDROcodone/APAP 7.5-325 [[place] 1 each PO Q8HR PRN 11/03/18 02/07/19 Unknown History 7.5-325 mg TAB] Hyoscyamine Sulfate [Hyoscyamine 0.125 mg PO Q4H PRN 11/03/18 02/07/19 Unknown History Rapdis 0.125 mg] Insulin Glargine [Lantus VIAL] 10 unit SUB-Q QHS 11/03/18 02/07/19 Unknown History LORazepam [Ativan] 1 mg PO Q4H PRN 11/03/18 02/07/19 Unknown History Magnesium Hydroxide [Milk of 30 ml PO Q3D 11/03/18 02/07/19 Unknown History Magnesia] Morphine Concentrate [MORPHINE 0.25 ml PO Q4HR PRN 11/03/18 02/07/19 Unknown History Conc 20 MG/ML ORAL LIQ] Promethazine [Phenergan SUPPOS] 25 mg ND Q4H PRN 11/03/18 02/07/19 Unknown History Promethazine [Phenergan] 25 mg PO Q4H PRN 11/03/18 02/07/19 Unknown History Promethazine [Phenergan] 25 mg PO Q8HR PRN 11/03/18 02/07/19 Unknown History Sennosides Tab [Senokot] 17.2 mg PO BID 11/03/18 02/07/19 Unknown History bisacodyL [Dulcolax suppos] 10 mg ND QDAY PRN 11/03/18 02/07/19 Unknown History Acetaminophen [Acetaminophen TAB] 650 mg PO Q4H PRN tablet 11/19/18 02/07/19 Unknown Rx Hyoscyamine Subl [Levsin Sl 0.125 0.125 mg SL Q4H PRN tablet 11/19/18 02/07/19 Unknown Rx TAB] Lansoprazole Solutab [Prevacid 30 mg FEEDTUBE BID tab.rapdis 11/19/18 02/07/19 Unknown Rx Solutab] Morphine Concentrate [MORPHINE 5 mg PO Q4H PRN oral.liqd 11/19/18 02/07/19 Unknown Rx Conc 20 MG/ML ORAL LIQ] Sodium Bicarbonate 325 mg FEEDTUBE PRN PRN tablet 11/19/18 02/07/19 Unknown Rx Famotidine [Pepcid] 20 mg PO QDAY 02/07/19 02/07/19 Unknown History Active Meds: Active Medications Ceftriaxone Sodium (Rocephin/Ns 1 Gm/50 Ml) 1 gm in 50 mls @ 100 mls/hr IV Q24H [facility] Last Admin: 07/13/19 16:25 Dose: 100 mls/hr Documented by: Sodium Chloride (Nacl 0.9% 1000 Ml) 1,000 mls @ 175 mls/hr IV DIRECT TIMMY Insulin Human Lispro (Humalog) 0 unit SUB-Q ACHS TIMMY; Protocol Sodium Hypochlorite (Dakin's Half Strength) 1 applic TP BID [facility] Last Admin: 07/14/19 09:35 Dose: 1 applicatio Documented by: Review of Systems ROS unobtainable: due to mental status Exam - Vital Signs Vital signs: Vital Signs Resp BP Pulse Ox 20 101/84 90 07/13/19 00:26 07/13/19 00:26 07/13/19 00:26 - General Appearance General appearance: cachectic, chronically ill, frail EENT: ATNC, mucous membranes dry Neck: Present: neck supple Respiratory: Decreased Breath Sounds Heart: regular, S1S2 Gastrointestinal: Present: normoactive bowel sounds Integumentary: no rash, other (contracted ) Neurologic: confused, disoriented, obtunded Results - Lab Results 07/14/19 04:43 07/14/19 04:43 Most recent lab results Calcium 7.0 mg/dL (8.4-10.2) L D 07/14/19 04:43 Assessment and Plan - Patient Problems (1) Acute renal failure Current Visit: Yes Status: Acute Qualifiers: Acute renal failure type: unspecified Qualified Code(s): N17.9 - Acute kidney failure, unspecified Plan to address problem: DYLLAN likely secondary to pre-renal azotemia in the setting of volume depletion, symptomatic anemia. Ischemic ATN possible. Cont IV NS at 150ml/hr. recommend blood transfusion. avoid nephrotoxins, IV Contrast, NSAIDs. check UA, urine lytes, urine P/C ratio. Will monitor lytes, renal parameters closely and make further recommendations (2) Anemia in chronic illness Current Visit: Yes Status: Acute Plan to address problem: management as per Dr Waddell (3) Decubitus ulcers Current Visit: Yes Status: Acute Qualifiers: Pressure injury location: unspecified location Pressure injury stage: unspecified pressure injury stage Qualified Code(s): L89.90 - Pressure ulcer of unspecified site, unspecified stage Plan to address problem: wound care team consulted (4) Metabolic acidosis Current Visit: Yes Status: Acute Plan to address problem: lactic acidosis + hyperchloremic acidosis in the setting of DYLLAN. cont IVF with NS (5) Sepsis Current Visit: Yes Status: Acute Qualifiers: Plan to address problem: BCx/UCx pending, empiric ABXs initiated, please ensure that ABXs are dosed for current eGFR.
[2019-07-14] MEDS ORDERED: POTASSIUM CHLORIDE 20 MEQ PACKET FEEDTUBE ONE (18:30)
[2019-07-14] MEDS: INSULIN LISPRO 100 UNIT/ML SUB-Q SCH ×2 (18:36→23:38)
--- NOTE | 2019-07-14 18:57 | Consultation ---
History of Present Illness - Reason for Consult Consult date: 07/14/19 septic shock Requesting physician: NANDA WADDELL - History of Present Illness 73 years old female with history of hypertension, CAD/RI, diabetes, schizophrenia, anoxic brain injury, chronic respiratory failure status post trach and PEG placement, chronic indwelling Blackman, extensive decubiti, resident of a intermediate where she was in hospice care, admitted on 07/13/2019 due to dehydration and altered mental status. Patient is unable to provide history. Per chart review, family members stop all medication 4 days before admission, however one family member came back to the rehab and did not like her condition and decided to call 911. It is unclear if she is still hospice. On arrival, temperature 98, heart rate 103, blood pressure 101/84. WBC 30.1. Creatinine 3.8. Lactate 21. AST 131. UA with 37 white blood cells and moderate leukocytes. Blood cultures 07/13/2019 growing E. coli 4 out of 4 bottles. Chest x-ray bilateral infiltrates. ID consulted for septic shock. Review of Systems: Unable to obtain, patient with anoxic brain injury Past History Past Medical History: stroke Social history: no significant social history, other ([place]ives in the [place].) Medications and Allergies Allergies Allergy/AdvReac Type Severity Reaction Status Date / Time No Known Allergies Allergy Unverified 09/30/13 14:18 Home Medications Medication Instructions Recorded Confirmed Last Taken Type Glycopyrrolate [Robinul] 1 mg PO BID 07/29/17 02/07/19 Unknown History Ipratropium/Albuterol Sulfate 1 ampul IH Q6HR 07/29/17 02/07/19 Unknown History [DUONEB *Not for PRN Use*] Acetaminophen [Acetaminophen 650 mg OR Q6H PRN 11/03/18 02/07/19 Unknown History SUPPOS] Acetaminophen [Tylenol] 650 mg PO Q4H PRN 11/03/18 02/07/19 Unknown History Aspirin [Aspirin BABY CHEW TAB] 81 mg PO QDAY 11/03/18 02/07/19 Unknown History Baclofen [Lioresal] 10 mg PO QDAY 11/03/18 02/07/19 Unknown History Cranberry Fruit Concentrate 450 mg PO QDAY 11/03/18 02/07/19 Unknown History [Cranberry] Glucagon (Human Recomb) [Glucagen] 1 mg IM Q24H PRN 11/03/18 02/07/19 Unknown History HYDROcodone/APAP 7.5-325 [[place] 1 each PO Q8HR PRN 11/03/18 02/07/19 Unknown History 7.5-325 mg TAB] Hyoscyamine Sulfate [Hyoscyamine 0.125 mg PO Q4H PRN 11/03/18 02/07/19 Unknown History Rapdis 0.125 mg] Insulin Glargine [Lantus VIAL] 10 unit SUB-Q QHS 11/03/18 02/07/19 Unknown History LORazepam [Ativan] 1 mg PO Q4H PRN 11/03/18 02/07/19 Unknown History Magnesium Hydroxide [Milk of 30 ml PO Q3D 11/03/18 02/07/19 Unknown History Magnesia] Morphine Concentrate [MORPHINE 0.25 ml PO Q4HR PRN 11/03/18 02/07/19 Unknown History Conc 20 MG/ML ORAL LIQ] Promethazine [Phenergan SUPPOS] 25 mg OR Q4H PRN 11/03/18 02/07/19 Unknown History Promethazine [Phenergan] 25 mg PO Q4H PRN 11/03/18 02/07/19 Unknown History Promethazine [Phenergan] 25 mg PO Q8HR PRN 11/03/18 02/07/19 Unknown History Sennosides Tab [Senokot] 17.2 mg PO BID 11/03/18 02/07/19 Unknown History bisacodyL [Dulcolax suppos] 10 mg OR QDAY PRN 11/03/18 02/07/19 Unknown History Acetaminophen [Acetaminophen TAB] 650 mg PO Q4H PRN tablet 11/19/18 02/07/19 Unknown Rx Hyoscyamine Subl [Levsin Sl 0.125 0.125 mg SL Q4H PRN tablet 11/19/18 02/07/19 Unknown Rx TAB] Lansoprazole Solutab [Prevacid 30 mg FEEDTUBE BID tab.rapdis 11/19/18 02/07/19 Unknown Rx Solutab] Morphine Concentrate [MORPHINE 5 mg PO Q4H PRN oral.liqd 11/19/18 02/07/19 Unknown Rx Conc 20 MG/ML ORAL LIQ] Sodium Bicarbonate 325 mg FEEDTUBE PRN PRN tablet 11/19/18 02/07/19 Unknown Rx Famotidine [Pepcid] 20 mg PO QDAY 02/07/19 02/07/19 Unknown History Active Meds: Active Medications Ceftriaxone Sodium (Rocephin/Ns 1 Gm/50 Ml) 1 gm in 50 mls @ 100 mls/hr IV Q24H [facility] Last Admin: 07/13/19 16:25 Dose: 100 mls/hr Documented by: Sodium Chloride (Nacl 0.9% 1000 Ml) 1,000 mls @ 175 mls/hr IV DIRECT TIMMY Insulin Human Lispro (Humalog) 0 unit SUB-Q ACHS TIMMY; Protocol Last Admin: 07/14/19 18:36 Dose: 10 unit Documented by: Sodium Hypochlorite (Dakin's Half Strength) 1 applic TP BID [facility] Last Admin: 07/14/19 09:35 Dose: 1 applicatio Documented by: Physical Examination - Physical Exam Narrative exam: General appearance: Comatose nonresponsive in no acute distress cachectic Eyes: anicteric sclerae, moist conjunctivae; no lid-lag; PERRLA HENT: Atraumatic; oropharynx limited Lungs: Bilateral rhonchi CV: RRR no murmur Abdomen: Soft, non-tender; no masses or hepatosplenomegaly Extremities: Lower extremity contracted Skin: Multiple extensive decubiti bilateral sacral area and back with necrosis Psych: No agitation Neuro: Unresponsive Old Blackman catheter with purulent urine - Constitutional Vitals: Vital Signs Temp Pulse Resp BP Pulse Ox 97.0 F L 73 20 135/102 100 07/14/19 13:45 07/14/19 13:45 07/14/19 13:45 07/14/19 13:45 07/14/19 13:45 Temperature -Last 24 Hours Temperature 97.0 F Temperature 99.4 F Temperature 98.5 F Temperature 97.3 F Results - Labs CBC & Chem 7: 07/14/19 04:43 07/14/19 04:43 Labs: Abnormal lab results 07/13/19 07/14/19 07/14/19 Range/Units 18:52 04:43 04:43 WBC 29.7 H (4.5-11.0) K/mm3 RBC 2.57 L (3.65-5.03) M/mm3 Hgb 5.8 L* (10.1-14.3) gm/dl Hct 18.8 L* (30.3-42.9) % MCV 73 L (79-97) fl MCH 23 L (28-32) pg RDW 21.1 H (13.2-15.2) % Plt Count 446 H (140-440) K/mm3 Seg Neuts % (Manual) 85.0 H (40.0-70.0) % Lymphocytes % (Manual) 3.0 L (13.4-35.0) % Seg Neutrophils # Man 25.2 H (1.8-7.7) K/mm3 Lymphocytes # (Manual) 0.9 L (1.2-5.4) K/mm3 Monocytes # (Manual) 1.2 H (0.0-0.8) K/mm3 Potassium 2.8 L* D (3.6-5.0) mmol/L Chloride 97.6 L (98-107) mmol/L BUN 144 H (7-17) mg/dL Creatinine 2.8 H (0.7-1.2) mg/dL Glucose 407 H (65-100) mg/dL POC Glucose (70-105) Lactic Acid 2.30 H* (0.7-2.0) mmol/L Calcium 7.0 L D (8.4-10.2) mg/dL AST 65 H (5-40) units/L Total Protein 5.6 L D (6.3-8.2) g/dL Albumin 1.4 L (3.9-5) g/dL Urine WBC (Auto) (0.0-6.0) /HPF 07/14/19 07/14/19 07/14/19 Range/Units 04:43 07:44 11:09 WBC (4.5-11.0) K/mm3 RBC (3.65-5.03) M/mm3 Hgb (10.1-14.3) gm/dl Hct (30.3-42.9) % MCV (79-97) fl MCH (28-32) pg RDW (13.2-15.2) % Plt Count (140-440) K/mm3 Seg Neuts % (Manual) (40.0-70.0) % Lymphocytes % (Manual) (13.4-35.0) % Seg Neutrophils # Man (1.8-7.7) K/mm3 Lymphocytes # (Manual) (1.2-5.4) K/mm3 Monocytes # (Manual) (0.0-0.8) K/mm3 Potassium (3.6-5.0) mmol/L Chloride (98-107) mmol/L BUN (7-17) mg/dL Creatinine (0.7-1.2) mg/dL Glucose (65-100) mg/dL POC Glucose (70-105) Lactic Acid 3.10 H* 2.50 H* 2.60 H* (0.7-2.0) mmol/L Calcium (8.4-10.2) mg/dL AST (5-40) units/L Total Protein (6.3-8.2) g/dL Albumin (3.9-5) g/dL Urine WBC (Auto) (0.0-6.0) /HPF 07/14/19 07/14/19 Range/Units 17:23 Unknown WBC (4.5-11.0) K/mm3 RBC (3.65-5.03) M/mm3 Hgb (10.1-14.3) gm/dl Hct (30.3-42.9) % MCV (79-97) fl MCH (28-32) pg RDW (13.2-15.2) % Plt Count (140-440) K/mm3 Seg Neuts % (Manual) (40.0-70.0) % Lymphocytes % (Manual) (13.4-35.0) % Seg Neutrophils # Man (1.8-7.7) K/mm3 Lymphocytes # (Manual) (1.2-5.4) K/mm3 Monocytes # (Manual) (0.0-0.8) K/mm3 Potassium (3.6-5.0) mmol/L Chloride (98-107) mmol/L BUN (7-17) mg/dL Creatinine (0.7-1.2) mg/dL Glucose (65-100) mg/dL POC Glucose 438 H (70-105) Lactic Acid (0.7-2.0) mmol/L Calcium (8.4-10.2) mg/dL AST (5-40) units/L Total Protein (6.3-8.2) g/dL Albumin (3.9-5) g/dL Urine WBC (Auto) 37.0 H (0.0-6.0) /HPF Assessment and Plan Cultures: Blood cultures 07/13/2019 E. coli 4 out of 4 bottles. Assessment: 73 years old female with history of hypertension, CAD/RI, diabetes, schizophr enia, anoxic brain injury, chronic respiratory failure status post trach and PEG placement, chronic indwelling Blackman, extensive decubiti, resident of a intermediate where she was in hospice care, admitted on 07/13/2019 due to dehydration and altered mental status, now with: #Severe sepsis with initial septic shock: present on admission with tachycardia, hypotension, leukocytosis, elevated elevated lactate; source UTI/bacteremia and possible pneumonia #E. coli bacteremia: Likely due to complicated UTI #Catheter associated UTI: patient with and all Blackman catheter with purulence #Bilateral pneumonia: Possible aspiration #DYLLAN: Renally adjust antibiotic #Elevated LFTs: Likely due to severe sepsis #Extensive multiple decubiti with necrosis: Mainly in her back, and sacral area Recommendations: Remove all Blackman catheter Continue ceftriaxone 1 g IV once a day Obtain urine culture Wound care consult/offloading Overall prognosis grim, please consider hospice care Will follow. Rosalva Mcfadden MD Infectious Diseases [employer] [facility] M [phone] O [phone]
[2019-07-14] MEDS: cefTRIAXone/NS 1 GM/50 ML 1 GM/50 ML BAG IV SCH (19:01)
--- NOTE | 2019-07-14 20:21 | Progress Note ---
Assessment and Plan - Patient Problems (1) Septic shock Current Visit: Yes Status: Acute Plan to address problem: Treat etiology. (2) Acute renal failure Current Visit: Yes Status: Acute Qualifiers: Acute renal failure type: unspecified Qualified Code(s): N17.9 - Acute kidney failure, unspecified Plan to address problem: continue hydration. (3) Decubitus ulcers Current Visit: Yes Status: Acute Qualifiers: Pressure injury location: unspecified location Pressure injury stage: unspecified pressure injury stage Qualified Code(s): L89.90 - Pressure ulcer of unspecified site, unspecified stage Plan to address problem: chronic.Wound care when indicated. (4) Failure to thrive Current Visit: Yes Status: Acute Qualifiers: Failure to thrive age range: in adult Qualified Code(s): R62.7 - Adult failure to thrive (5) Metabolic acidosis Current Visit: Yes Status: Acute Plan to address problem: Improving. (6) Pneumonia Current Visit: Yes Status: Acute Qualifiers: Pneumonia type: due to unspecified organism Laterality: bilateral Lung location: unspecified part of lung Qualified Code(s): J18.9 - Pneumonia, unspe cified organism Plan to address problem: Continue with ABX. Subjective Date of service: 07/14/19 Interval history: Patient seen/examined, resting in bed, notes/records/labs reviewed, still no family for discussion. Patient still remains in hospice.Appreciate all the consultants. patients records in the Computer will not allow Blood transfusion. No family available even on the phone for discussion.Wound care still awaiting. Objective - Constitutional Vitals: Vital Signs - 12hr 07/14/19 07/14/19 07/14/19 08:42 09:40 10:00 Temperature Pulse Rate Pulse Rate [ 73 Right Brachial] Respiratory 22 Rate Blood Pressure 58/30 O2 Sat by Pulse 96 94 Oximetry 07/14/19 07/14/19 11:47 13:45 Temperature 97.0 F L Pulse Rate 73 Pulse Rate [ Right Brachial] Respiratory 20 Rate Blood Pressure 66/35 135/102 O2 Sat by Pulse 100 Oximetry General appearance: Present: mild distress, cachectic - EENT Eyes: PERRL, EOM intact ENT: hearing intact, clear oral mucosa Ears: bilateral: normal - Neck Neck: supple, normal ROM - Respiratory Respiratory: bilateral: diminished - Breasts Breasts: deferred - Cardiovascular Rhythm: regular Heart Sounds: Present: S1 & S2. Absent: gallop, rub Extremities: pulses intact, No edema, normal color, Full ROM - Gastrointestinal General gastrointestinal: Present: soft, non-tender, non-distended, normal bowel sounds Rectal Exam: deferred - Genitourinary Female genitourinary: deferred - Integumentary Integumentary: clear, warm, dry - Labs CBC & Chem 7: 07/14/19 04:43 07/14/19 04:43 Labs: Abnormal lab results 07/14/19 07/14/19 07/14/19 Range/Units 04:43 04:43 04:43 WBC 29.7 H (4.5-11.0) K/mm3 RBC 2.57 L (3.65-5.03) M/mm3 Hgb 5.8 L* (10.1-14.3) gm/dl Hct 18.8 L* (30.3-42.9) % MCV 73 L (79-97) fl MCH 23 L (28-32) pg RDW 21.1 H (13.2-15.2) % Plt Count 446 H (140-440) K/mm3 Seg Neuts % (Manual) 85.0 H (40.0-70.0) % Lymphocytes % (Manual) 3.0 L (13.4-35.0) % Seg Neutrophils # Man 25.2 H (1.8-7.7) K/mm3 Lymphocytes # (Manual) 0.9 L (1.2-5.4) K/mm3 Monocytes # (Manual) 1.2 H (0.0-0.8) K/mm3 Potassium 2.8 L* D (3.6-5.0) mmol/L Chloride 97.6 L (98-107) mmol/L BUN 144 H (7-17) mg/dL Creatinine 2.8 H (0.7-1.2) mg/dL Glucose 407 H (65-100) mg/dL POC Glucose (70-105) Lactic Acid 3.10 H* (0.7-2.0) mmol/L Calcium 7.0 L D (8.4-10.2) mg/dL AST 65 H (5-40) units/L Total Protein 5.6 L D (6.3-8.2) g/dL Albumin 1.4 L (3.9-5) g/dL Urine WBC (Auto) (0.0-6.0) /HPF 07/14/19 07/14/19 07/14/19 Range/Units 07:44 11:09 17:23 WBC (4.5-11.0) K/mm3 RBC (3.65-5.03) M/mm3 Hgb (10.1-14.3) gm/dl Hct (30.3-42.9) % MCV (79-97) fl MCH (28-32) pg RDW (13.2-15.2) % Plt Count (140-440) K/mm3 Seg Neuts % (Manual) (40.0-70.0) % Lymphocytes % (Manual) (13.4-35.0) % Seg Neutrophils # Man (1.8-7.7) K/mm3 Lymphocytes # (Manual) (1.2-5.4) K/mm3 Monocytes # (Manual) (0.0-0.8) K/mm3 Potassium (3.6-5.0) mmol/L Chloride (98-107) mmol/L BUN (7-17) mg/dL Creatinine (0.7-1.2) mg/dL Glucose (65-100) mg/dL POC Glucose 438 H (70-105) Lactic Acid 2.50 H* 2.60 H* (0.7-2.0) mmol/L Calcium (8.4-10.2) mg/dL AST (5-40) units/L Total Protein (6.3-8.2) g/dL Albumin (3.9-5) g/dL Urine WBC (Auto) (0.0-6.0) /HPF 07/14/19 07/14/19 Range/Units 19:46 Unknown WBC (4.5-11.0) K/mm3 RBC (3.65-5.03) M/mm3 Hgb (10.1-14.3) gm/dl Hct (30.3-42.9) % MCV (79-97) fl MCH (28-32) pg RDW (13.2-15.2) % Plt Count (140-440) K/mm3 Seg Neuts % (Manual) (40.0-70.0) % Lymphocytes % (Manual) (13.4-35.0) % Seg Neutrophils # Man (1.8-7.7) K/mm3 Lymphocytes # (Manual) (1.2-5.4) K/mm3 Monocytes # (Manual) (0.0-0.8) K/mm3 Potassium (3.6-5.0) mmol/L Chloride (98-107) mmol/L BUN (7-17) mg/dL Creatinine (0.7-1.2) mg/dL Glucose (65-100) mg/dL POC Glucose (70-105) Lactic Acid 3.90 H* (0.7-2.0) mmol/L Calcium (8.4-10.2) mg/dL AST (5-40) units/L Total Protein (6.3-8.2) g/dL Albumin (3.9-5) g/dL Urine WBC (Auto) 37.0 H (0.0-6.0) /HPF
[2019-07-15] MEDS: SODIUM CHLORIDE 0.9% 1000 ML 1,000 ML IV SCH ×2 (02:00→10:34)
[2019-07-15] MEDS: INSULIN LISPRO 100 UNIT/ML SUB-Q SCH ×2 (08:30→12:30)
[2019-07-15 10:04] LABS: Calcium 7.6 mg/dL (8.4-10.2)
[2019-07-15 10:08] LABS: Bilirubin,Urine NEG (Negative); Blood,Urine MOD (Negative); Color,Urine Yellow (Yellow); Mucus,Urine FEW /HPF; Urobilinogen,Urine < 2.0 mg/dL (<2.0)
[2019-07-15] MEDS: SODIUM HYPOCHLORITE, DAKIN'S 1/2 STRENGTH (0.25%) 473 ML TOPICAL SOLN TP SCH (10:37)
[2019-07-15] MEDS ORDERED: SIMPLE SYRUP 15 ML FEEDTUBE PRN ×2 (10:43)
[2019-07-15] MEDS ORDERED: LIPASE 10,500/PROTEASE 25,000/AMYLASE 43,750 (UNITS) DR CAP FEEDTUBE PRN (10:43)
[2019-07-15] MEDS ORDERED: SODIUM BICARBONATE 325 MG TAB FEEDTUBE PRN (10:43)
--- NOTE | 2019-07-15 10:54 | Progress Note ---
Assessment and Plan - Patient Problems (1) Acute renal failure Current Visit: Yes Status: Acute Qualifiers: Acute renal failure type: unspecified Qualified Code(s): N17.9 - Acute kidney failure, unspecified Plan to address problem: DYLLAN likely secondary to pre-renal azotemia in the setting of volume depletion, symptomatic anemia. Given developing hypernatremia and persistent hypokalemia, IVF changed to 1/2NS + Kcl 40meq/L. avoid nephrotoxins, IV Contrast, NSAIDs. Will monitor lytes, renal parameters closely and make further recommendations. Overall prognosis is poor, recommend to resume hospice care. (2) Anemia in chronic illness Current Visit: Yes Status: Acute Plan to address problem: management as per Dr Ruvalcaba (3) Decubitus ulcers Current Visit: Yes Status: Acute Qualifiers: Pressure injury location: unspecified location Pressure injury stage: unspecified pressure injury stage Qualified Code(s): L89.90 - Pressure ulcer of unspecified site, unspecified stage Plan to address problem: wound care team consulted (4) Metabolic acidosis Current Visit: Yes Status: Acute Plan to address problem: lactic acidosis + hyperchloremic acidosis in the setting of DYLLAN. cont IVF with 1/2NS + Kcl (5) Sepsis Current Visit: Yes Status: Acute Qualifiers: Plan to address problem: BCx/UCx pending, empiric ABXs initiated, follow ID recommendations . Subjective Date of service: 07/15/19 Principal diagnosis: DYLLAN Interval history: Pt remains obtunded, non-verbal. Objective - Vital Signs Vital signs: Vital Signs - 12hr 07/15/19 07/15/19 07/15/19 00:00 04:23 08:04 Temperature 97.6 F 97.4 F L Pulse Rate 84 84 Respiratory 16 Rate Blood Pressure 67/31 62/39 O2 Sat by Pulse 98 90 Oximetry O2 Sat by Pulse 99 Oximetry [ Assessment] 07/15/19 10:00 Temperature Pulse Rate Respiratory Rate Blood Pressure O2 Sat by Pulse 97 Oximetry O2 Sat by Pulse Oximetry [ Assessment] - General Appearance General appearance: cachectic, chronically ill, frail EENT: ATNC, mucous membranes dry Neck: no JVD Respiratory: Present: Clear to Ascultation Cardiology: regular, S1S2 Gastrointestinal: normoactive bowel sounds Integumentary: no rash, decubiti, other (no edema ) Neurologic: obtunded - Lab 07/14/19 04:43 07/15/19 08:53 Most recent lab results Calcium 7.6 mg/dL (8.4-10.2) L 07/15/19 08:53 Medications & Allergies - Medications Allergies/Adverse Reactions: Allergies No Known Allergies Allergy (Unverified 09/30/13 14:18) Home Medications: Home Medications Medication Instructions Recorded Confirmed Last Taken Type Glycopyrrolate [Robinul] 1 mg PO BID 07/29/17 02/07/19 Unknown History Ipratropium/Albuterol Sulfate 1 ampul IH Q6HR 07/29/17 02/07/19 Unknown History [DUONEB *Not for PRN Use*] Acetaminophen [Acetaminophen 650 mg KS Q6H PRN 11/03/18 02/07/19 Unknown History SUPPOS] Acetaminophen [Tylenol] 650 mg PO Q4H PRN 11/03/18 02/07/19 Unknown History Aspirin [Aspirin BABY CHEW TAB] 81 mg PO QDAY 11/03/18 02/07/19 Unknown History Baclofen [Lioresal] 10 mg PO QDAY 11/03/18 02/07/19 Unknown History Cranberry Fruit Concentrate 450 mg PO QDAY 11/03/18 02/07/19 Unknown History [Cranberry] Glucagon (Human Recomb) [Glucagen] 1 mg IM Q24H PRN 11/03/18 02/07/19 Unknown History HYDROcodone/APAP 7.5-325 [[place] 1 each PO Q8HR PRN 11/03/18 02/07/19 Unknown History 7.5-325 mg TAB] Hyoscyamine Sulfate [Hyoscyamine 0.125 mg PO Q4H PRN 11/03/18 02/07/19 Unknown History Rapdis 0.125 mg] Insulin Glargine [Lantus VIAL] 10 unit SUB-Q QHS 11/03/18 02/07/19 Unknown History LORazepam [Ativan] 1 mg PO Q4H PRN 11/03/18 02/07/19 Unknown History Magnesium Hydroxide [Milk of 30 ml PO Q3D 11/03/18 02/07/19 Unknown History Magnesia] Morphine Concentrate [MORPHINE 0.25 ml PO Q4HR PRN 11/03/18 02/07/19 Unknown History Conc 20 MG/ML ORAL LIQ] Promethazine [Phenergan SUPPOS] 25 mg [place] Q4H PRN 11/03/18 02/07/19 Unknown History Promethazine [Phenergan] 25 mg PO Q4H PRN 11/03/18 02/07/19 Unknown History Promethazine [Phenergan] 25 mg PO Q8HR PRN 11/03/18 02/07/19 Unknown History Sennosides Tab [Senokot] 17.2 mg PO BID 11/03/18 02/07/19 Unknown History bisacodyL [Dulcolax suppos] 10 mg [place] QDAY PRN 11/03/18 02/07/19 Unknown History Acetaminophen [Acetaminophen TAB] 650 mg PO Q4H PRN tablet 11/19/18 02/07/19 Unknown Rx Hyoscyamine Subl [Levsin Sl 0.125 0.125 mg SL Q4H PRN tablet 11/19/18 02/07/19 Unknown Rx TAB] Lansoprazole Solutab [Prevacid 30 mg FEEDTUBE BID tab.rapdis 11/19/18 02/07/19 Unknown Rx Solutab] Morphine Concentrate [MORPHINE 5 mg PO Q4H PRN oral.liqd 11/19/18 02/07/19 Unknown Rx Conc 20 MG/ML ORAL LIQ] Sodium Bicarbonate 325 mg FEEDTUBE PRN PRN tablet 11/19/18 02/07/19 Unknown Rx Famotidine [Pepcid] 20 mg PO QDAY 02/07/19 02/07/19 Unknown History Active Medications: Generic Name Dose Route Start Last Admin Trade Name Freq PRN Reason Stop Dose Admin Lipase/Protease/Amylase 1 each 07/15/19 10:[address] 10,500 Unit FEEDTUBE PRN PRN For Clogged Feeding Tube Ceftriaxone Sodium 1 gm in 50 mls @ 100 mls/hr 07/13/19 16:00 07/14/19 19:01 Rocephin/Ns 1 Gm/50 Ml IV 100 mls/hr Q24H TIMMY Administration Sodium Chloride 1,000 mls @ 175 mls/hr 07/14/19 10:57 07/15/19 10:34 Nacl 0.9% 1000 Ml IV 175 mls/hr DIRECT TIMMY Administration Insulin Human Lispro 0 unit 07/14/19 17:37 07/15/19 08:30 Humalog SUB-Q 4 unit ACHS TIMMY Administration Protocol Simple Syrup 15 ml 07/15/19 10:43 Simple Syrup FEEDTUBE PRN PRN Hypoglycemia Simple Syrup 30 ml 07/15/19 10:43 Simple Syrup FEEDTUBE PRN PRN Hypoglycemia Sodium Bicarbonate 325 mg 07/15/19 10:43 Sodium Bicarbonate FEEDTUBE PRN PRN For Clogged Feeding Tube Sodium Hypochlorite 1 applic 07/14/19 10:00 07/15/19 10:37 Dakin's Half Strength TP 1 applicatio BID TIMMY Administration
[2019-07-15 11:17] LABS: Creatinine,Urine 27.4 mg/dL (0.1-20.0)
--- NOTE | 2019-07-15 11:30 | Progress Note ---
Assessment and Plan Severe sepsis with shock. Gram-negative bacteremia. Septic emboli versus pneumonia versus metastatic disease. Acute on chronic hypoxemic respiratory failure. Anemia that is microcytic. Leukocytosis. Acute kidney injury. Hyperkalemia. Hyperglycemia. Mild metabolic acidosis. Severe protein-calorie malnutrition. Possible UTI Oropharyngeal dysphagia. Anoxic encephalopathy. - potassium replaced - anemia per attending; transfuse for Hb < 7.0 - continue to wean supplemental oxygen to keep O2 sats > 90% - continue Bronchodilators with routine trach care and pulm hygiene per RT - continue antibiotics and de-escalate [per ID rec's - CXR picture with unilateral predominant nodules less compatible with SBE / metastatic septic emboli - continue to avoid nephrotoxins, renally dose all medications - continue mobility protocols to prevent pressure ulcers - PT/OT/Wound care - continue accuchecks with glycemic control per SSI for target blood glucose < 180mg/dL - continue other care per attending / other consultants - prn analgesia per pain score ... re-evaluate in am & prn Subjective Date of service: 07/15/19 Principal diagnosis: Severe sepsis; Ac on ch hypoxemic resp failure; Anemia; DYLLAN Interval history: Patient is seen today for: Severe sepsis with shock; Gram-negative bacteremia; Septic emboli versus pneumonia versus metastatic disease; Acute on chronic hypoxemic respiratory failure; Anemia; Acute kidney injury. Seen and examined at bedside; 24hour events reviewed; nursing and respiratory care staff consulted; no adverse overnight events reported to me; resting in bed; breathing is less labored; no high grade fevers; no hypotension; no family in room; remains in contact isolation Objective Vital Signs - 12hr 07/15/19 07/15/19 07/15/19 00:00 04:23 08:00 Temperature 97.6 F Pulse Rate 84 Respiratory 16 Rate Blood Pressure 67/31 O2 Sat by Pulse 98 Oximetry O2 Sat by Pulse 99 98 Oximetry [ Assessment] 07/15/19 07/15/19 08:04 10:00 Temperature 97.4 F L Pulse Rate 84 Respiratory Rate Blood Pressure 62/39 O2 Sat by Pulse 90 97 Oximetry O2 Sat by Pulse Oximetry [ Assessment] Constitutional: appears uncomfortable, other (elderly and chronically ill looking AF, contracted and with midly increased respiratory effort at rest) Eyes: non-icteric ENT: oropharynx dry Neck: supple, no JVD, other (+ midline tracheostomy) Effort: mildly labored Ascultation: Bilateral: diminished breath sounds, rhonchi Percussion: Bilateral: not dull Cardiovascular: regular rate and rhythm, other (No R/M) Gastrointestinal: normoactive bowel sounds, soft, non-tender, non-distended Integumentary: decubitus ulcer (see wound care notes) Extremities: no cyanosis, pulses normal, other (contracted) Neurologic: unable to assess Psychiatric: other (unable to assess re: AMS) CBC and BMP: 07/16/19 18:26 07/15/19 08:53 Abnormal lab findings: Abnormal Labs 07/13/19 07/13/19 07/13/19 01:32 01:32 01:32 WBC 30.1 H RBC 3.22 L Hgb 7.6 L Hct 24.2 L MCV 75 L MCH 24 L RDW 21.1 H Plt Count 666 H Seg Neuts % (Manual) 82.0 H Lymphocytes % (Manual) 4.0 L Seg Neutrophils # Man 24.7 H Lymphocytes # (Manual) Monocytes # (Manual) 1.5 H Sodium Potassium 5.4 H Chloride 69.6 L Carbon Dioxide 20 L BUN 152 H Creatinine 3.8 H Glucose 193 H POC Glucose Lactic Acid 21.60 H* Calcium AST 131 H Total Protein Albumin 2.1 L Urine WBC (Auto) Urine Creatinine Urine Total Protein 07/13/19 07/13/19 07/13/19 03:40 09:37 14:03 WBC RBC Hgb Hct MCV MCH RDW Plt Count Seg Neuts % (Manual) Lymphocytes % (Manual) Seg Neutrophils # Man Lymphocytes # (Manual) Monocytes # (Manual) Sodium Potassium Chloride Carbon Dioxide BUN Creatinine Glucose POC Glucose Lactic Acid 18.50 H* 6.10 H* 2.80 H* Calcium AST Total Protein Albumin Urine WBC (Auto) Urine Creatinine Urine Total Protein 07/13/19 07/13/19 07/14/19 15:12 18:52 04:43 WBC 29.7 H RBC 2.57 L Hgb 5.8 L* Hct 18.8 L* MCV 73 L MCH 23 L RDW 21.1 H Plt Count 446 H Seg Neuts % (Manual) 85.0 H Lymphocytes % (Manual) 3.0 L Seg Neutrophils # Man 25.2 H Lymphocytes # (Manual) 0.9 L Monocytes # (Manual) 1.2 H Sodium Potassium Chloride Carbon Dioxide BUN Creatinine Glucose POC Glucose Lactic Acid 2.90 H* 2.30 H* Calcium AST Total Protein Albumin Urine WBC (Auto) Urine Creatinine Urine Total Protein 07/14/19 07/14/19 07/14/19 04:43 04:43 07:44 WBC RBC Hgb Hct MCV MCH RDW Plt Count Seg Neuts % (Manual) Lymphocytes % (Manual) Seg Neutrophils # Man Lymphocytes # (Manual) Monocytes # (Manual) Sodium Potassium 2.8 L* D Chloride 97.6 L Carbon Dioxide BUN 144 H Creatinine 2.8 H Glucose 407 H POC Glucose Lactic Acid 3.10 H* 2.50 H* Calcium 7.0 L D AST 65 H Total Protein 5.6 L D Albumin 1.4 L Urine WBC (Auto) Urine Creatinine Urine Total Protein 07/14/19 07/14/19 07/14/19 11:09 17:23 19:12 WBC RBC Hgb Hct MCV MCH RDW Plt Count Seg Neuts % (Manual) Lymphocytes % (Manual) Seg Neutrophils # Man Lymphocytes # (Manual) Monocytes # (Manual) Sodium Potassium Chloride Carbon Dioxide BUN Creatinine Glucose POC Glucose 438 H 406 H Lactic Acid 2.60 H* Calcium AST Total Protein Albumin Urine WBC (Auto) Urine Creatinine Urine Total Protein 07/14/19 07/14/19 07/14/19 19:46 22:43 Unknown WBC RBC Hgb Hct MCV MCH RDW Plt Count Seg Neuts % (Manual) Lymphocytes % (Manual) Seg Neutrophils # Man Lymphocytes # (Manual) Monocytes # (Manual) Sodium Potassium Chloride Carbon Dioxide BUN Creatinine Glucose POC Glucose 258 H Lactic Acid 3.90 H* Calcium AST Total Protein Albumin Urine WBC (Auto) 37.0 H Urine Creatinine Urine Total Protein 07/15/19 07/15/19 07/15/19 08:10 08:53 Unknown WBC RBC Hgb Hct MCV MCH RDW Plt Count Seg Neuts % (Manual) Lymphocytes % (Manual) Seg Neutrophils # Man Lymphocytes # (Manual) Monocytes # (Manual) Sodium 153 H D Potassium 2.7 L* Chloride 113.3 H Carbon Dioxide BUN 97 H Creatinine 1.4 H Glucose 239 H POC Glucose 247 H Lactic Acid Calcium 7.6 L AST Total Protein Albumin Urine WBC (Auto) 12.0 H Urine Creatinine Urine Total Protein 07/15/19 07/15/19 Unknown Unknown WBC RBC Hgb Hct MCV MCH RDW Plt Count Seg Neuts % (Manual) Lymphocytes % (Manual) Seg Neutrophils # Man Lymphocytes # (Manual) Monocytes # (Manual) Sodium Potassium Chloride Carbon Dioxide BUN Creatinine Glucose POC Glucose Lactic Acid 3.20 H* Calcium AST Total Protein Albumin Urine WBC (Auto) Urine Creatinine 27.4 H Urine Total Protein 49 H Chest x-ray: image reviewed Allied health notes reviewed: nursing
[2019-07-15] MEDS ORDERED: ALBUTEROL 2.5 MG/3 ML NEBU IH PRN (11:42)
--- NOTE | 2019-07-15 11:51 | Consultation ---
PULMONARY CRITICAL CARE CONSULT CONSULTING PHYSICIAN: Dr. Ruvalcaba. REASON FOR CONSULTATION: Hypoxemic respiratory failure, status post tracheostomy. CHIEF COMPLAINT AND HISTORY OF PRESENT ILLNESS: The patient is a 73-year-old female, long term resident with a history I believe of chronic respiratory failure, who showed up into the Emergency Room with fevers. She was evaluated by the Emergency Room physician and essentially diagnosed to be in septic shock, started on IV hydration. Amongst other things, she was found to have an acute kidney injury. We are asked to assist with management. The patient has a chronic tracheostomy in place. When I stopped by to see her, she was rested in bed. She had just had a wound care evaluation of a sacral ulcer. The woman is reportedly a hospice patient, but again did come in for management of her sepsis. She was on 30% of FiO2 via trach collar. She is encephalopathic/obtunded, unable to give me history. Again, I do not have any history of vomiting or overt aspiration. The patient's tobacco use/abuse history is unknown. The above is as much of the history of presentation as I have. From a social standpoint, there reportedly is a discussion in the family as to whether she should remain on hospice or not. The chest x-ray was abnormal and also suggestive of possible septic emboli. This is much of the history of presentation as I have. PAST MEDICAL HISTORY: Cerebrovascular accident, chronic respiratory failure, status post tracheostomy. History of hypertension, history of a cardiac arrest, history of diabetes, history of schizophrenia, history of anoxic encephalopathy, and oropharyngeal dysphagia. PAST SURGICAL HISTORY: Unknown. MEDICATIONS: She was on at the time I stopped by to see were reviewed. Pertinent medications included the following: She was on Rocephin 1 gram IV daily. Normal saline at 125 mL per hour. ALLERGIES: No known drug allergies. DIET: Thin to cachectic looking female, acute weight loss or gain history is unknown. FAMILY AND SOCIAL HISTORY: senior care resident. According to the Emergency Room notes, the patient ____ family members have stopped all her medications about 4 days before presentation, but on the day she came to the ER, one family member came and asked for the patient to be sent to the ER for treatment of sepsis. FAMILY HISTORY: Otherwise, unknown. REVIEW OF SYSTEMS: Unobtainable secondary to patient's medical and mental condition. PHYSICAL EXAMINATION: VITAL SIGNS: On examination at presentation in the Emergency Room revealed the vital signs shows afebrile, temperature 98.0, pulse was 103, respiratory rate was 20, blood pressure was about 66/48, O2 sats were 90%. Inspired oxygen concentration at that time was not recorded. When I stopped by to see her, O2 sats were about 98% that was on 40% FiO2 via the trach collar. GENERAL: She is an elderly looking, chronically ill-looking female, contracted. Normocephalic, resting in bed with mildly increased respiratory effort at rest. HEAD, EYES, EARS, NOSE AND THROAT: She was anicteric, no conjunctival erythema. Oropharynx was dry. Tracheostomy tube, I believe a Shiley #6 was in the midline of the neck. No bleeding around the stoma. She had temporal wasting. NECK: Grossly, there were no palpable lymph nodes in the supraclavicular or submandibular lymph node chains. LUNGS: Auscultation of both lung gleason was significant for bilateral rhonchi and mostly referred upper airway sounds. No active wheezing. HEART: Heart sounds 1 and 2 are heard at the time of my evaluation, regular rate and rhythm without overt rubs or murmurs. ABDOMEN: Soft, flat. Bowel sounds are positive, nontender, no palpable hepatosplenomegaly. G-tube was in place. EXTREMITIES: Contracted without overt pedal edema, without digital clubbing or cyanosis. NEUROLOGIC: She was obtunded and contracted with spastic contractions to the lower extremities, in particular. I should mention left subclavian central line was also in place that was placed in the ER. SKIN: Very poor turgor without overt cellulitis. She did have sacral and back decubitus ulcers that had some necrotic tissue over there and she had dressings to both her lower extremities. PSYCHIATRIC: Mood and affect could not be assessed. She was obtunded. LABORATORY DATA: From my review are as follows: Admission white cell count 30,100, hemoglobin 7.6, hematocrit 24.2, and platelet count 666, 9% band forms at presentation on the manual differential. Serum sodium was 139, potassium 5.4, chloride 67, bicarbonate was 20, BUN was 152, creatinine was 3.8, and glucose was 193. Lactic acid level was 18.5. AST was 131. Liver function tests otherwise within normal limits except for an albumin of 2.1. Serum hemoglobin level was down to 5.8 at the time of my evaluation. Potassium was 2.8. Lactic acid level was down to 2.5. Blood cultures have been sent. Both blood cultures were growing gram-negative rods. Stool occult blood had been sent. Result was pending. Chest x-ray was done. I have reviewed the chest x-ray as well as the radiologist's interpretation. Essentially, the left subclavian line tip is in the distal SVC. The left lung, in particular in the lower lobe area appeared to have possible septic emboli/metastatic lung disease. I cannot rule out same in the right upper lobe, particularly in the right mid lung zone laterally. ASSESSMENT: 1. Severe sepsis with shock. 2. Gram-negative bacteremia. 3. Left lower lobe, in particular septic emboli versus pneumonia versus metastatic lung disease. 4. Acute on chronic hypoxemic respiratory failure. 5. Anemia that is microcytic. 6. Leukocytosis. 7. Acute kidney injury. 8. Hyperkalemia. 9. Hyperglycemia. 10. Mild metabolic acidosis. 11. Severe protein-calorie malnutrition. 12. Possible UTI based on the urinary catheter or Blackman catheter effluent. 13. Oropharyngeal dysphagia. 14. Anoxic encephalopathy. PLAN: The patient is allowed natural /do not resuscitate status. I will try and reach out to the attending to make a decision as to how aggressive we want to be with care in particular from bacteremia standpoint and possible septic emboli standpoint. We should ideally get a 2D echocardiogram and look for possible bacterial endocarditis. Also, a CT scan will be of benefit in better evaluating the pulmonary lesions; however, if this patient is a hospice patient and to some extent overall aggressive care does look possibly futile in the long-term, we might not want to proceed with those testing. Infectious Disease consultation has been placed. I will defer to them in terms of antibiotic therapy. The gram-negative bacteremia quite possibly is related to the urinary tract infection. Urine will be sent for cultures as well as for urinalysis and then, I do see a urinalysis that shows moderate leukocyte esterase and 37 white cells per high power field, I will wait on the cultures. Oxygen will be weaned to keep sats greater than or equal to about 90%. Aspiration precautions will be maintained. Bronchodilators will be ordered on a p.r.n. basis. Glycemic control will be via sliding scale insulin for target blood glucose of 140-180 mg/dL while she is septic. Volume respiratory resuscitation is ongoing with normal saline at this point. Nephrology consultation has been placed. I will defer to them in terms of IV fluids choice at this point. We will target mean arterial pressures greater than or equal to about 65 mmHg. She will be placed on GI prophylaxis as well as DVT prophylaxis. She has been seen by the wound care nurse and the aggressiveness of care including possible surgical debridement will also be determined by the family's decision. Flu and pneumonia vaccination will be addressed per protocol. Thank you very much for the consult Dr. Ruvalcaba. We will follow along and make further recommendations as picture progresses/becomes clearer. She is gravely ill at risk of decompensation including the risk of . At this time, we spent about 35 minutes of critical care time without overlap, excluding any procedural time that may be necessary. I should mention enteral nutrition will be the feeding modality of choice. JOB# [id number] KEN/JENNIFER RODRIGUEZ
--- NOTE | 2019-07-15 12:31 | Progress Note ---
Assessment and Plan Cultures: Blood cultures 07/13/2019 E. coli 4 out of 4 bottles. Urine culture 10,000-100,000 mixed colonies Assessment: 73 years old female with history of hypertension, CAD/NV, diabetes, schizophrenia, anoxic brain injury, chronic respiratory failure status post trach and PEG placement, chronic indwelling Blackman, extensive decubiti, resident of a shelter where she was in hospice care, admitted on 07/13/2019 due to dehydration and altered mental status, now with: #Severe sepsis with initial septic shock: Continues with hypotension, leukocytosis, elevated elevated lactate; source UTI/bacteremia, extensive necrotic decubiti and possible pneumonia #E. coli bacteremia: Likely due to complicated UTI #Catheter associated UTI: patient with and old Blackman catheter with purulence, exchanged #Bilateral pneumonia: Possible aspiration #DYLLAN: Renally adjust antibiotic #Elevated LFTs: Likely due to severe sepsis #Extensive multiple decubiti with necrosis: Mainly in her back, and sacral area Recommendations: Continue ceftriaxone 1 g IV once a day total 5 - 7 days Wound care consult/offloading Overall prognosis grim, please consider hospice care, recommend non-aggressive management as there is no meaningful recovery Will follow. Discussed with Dr. Tessa Horner will be covering the weekend, please call me for any question, Dr Araujo to return on Thursday Rosalva Mcfadden MD Infectious Diseases [employer] [facility] M [phone] O [phone] Subjective Date of service: 07/15/19 Principal diagnosis: DYLLAN Interval history: Remains unresponsive, hypotensive, no fever Review of systems: Unable to obtain Objective - Exam Narrative Exam: General appearance: Comatose nonresponsive in no acute distress cachectic Eyes: anicteric sclerae, moist conjunctivae; no lid-lag; PERRLA HENT: Atraumatic; oropharynx limited Lungs: Bilateral rhonchi CV: RRR no murmur Abdomen: Soft, non-tender; no masses or hepatosplenomegaly Extremities: Upper and lower extremity contracted Skin: Multiple extensive decubiti bilateral sacral area and back with necrosis Psych: No agitation Neuro: Unresponsive New Blackman Blackman catheter with clear urine - Constitutional Vitals: Vital Signs Temp Pulse Resp BP Pulse Ox 97.4 F L 84 16 62/39 97 07/15/19 08:04 07/15/19 08:04 07/15/19 04:23 07/15/19 08:04 07/15/19 10:00 Temperature -Last 24 Hours Temperature 97.4 F Temperature 97.6 F Temperature 98.6 F Temperature 97.0 F - Labs CBC & Chem 7: 07/14/19 04:43 07/15/19 08:53 Labs: Abnormal lab results 07/13/19 07/14/19 07/14/19 Range/Units 01:32 17:23 19:12 WBC 30.1 H (4.5-11.0) K/mm3 RBC 3.22 L (3.65-5.03) M/mm3 Hgb 7.6 L (10.1-14.3) gm/dl Hct 24.2 L (30.3-42.9) % MCV 75 L (79-97) fl MCH 24 L (28-32) pg RDW 21.1 H (13.2-15.2) % Plt Count 666 H (140-440) K/mm3 Seg Neuts % (Manual) 82.0 H (40.0-70.0) % Lymphocytes % (Manual) 4.0 L (13.4-35.0) % Seg Neutrophils # Man 24.7 H (1.8-7.7) K/mm3 Monocytes # (Manual) 1.5 H (0.0-0.8) K/mm3 Sodium (137-145) mmol/L Potassium (3.6-5.0) mmol/L Chloride (98-107) mmol/L BUN (7-17) mg/dL Creatinine (0.7-1.2) mg/dL Glucose (65-100) mg/dL POC Glucose 438 H 406 H (70-105) Lactic Acid (0.7-2.0) mmol/L Calcium (8.4-10.2) mg/dL Urine WBC (Auto) (0.0-6.0) /HPF Urine Creatinine (0.1-20.0) mg/dL Urine Total Protein (5-11.8) mg/dL 07/14/19 07/14/19 07/15/19 Range/Units 19:46 22:43 08:10 WBC (4.5-11.0) K/mm3 RBC (3.65-5.03) M/mm3 Hgb (10.1-14.3) gm/dl Hct (30.3-42.9) % MCV (79-97) fl MCH (28-32) pg RDW (13.2-15.2) % Plt Count (140-440) K/mm3 Seg Neuts % (Manual) (40.0-70.0) % Lymphocytes % (Manual) (13.4-35.0) % Seg Neutrophils # Man (1.8-7.7) K/mm3 Monocytes # (Manual) (0.0-0.8) K/mm3 Sodium (137-145) mmol/L Potassium (3.6-5.0) mmol/L Chloride (98-107) mmol/L BUN (7-17) mg/dL Creatinine (0.7-1.2) mg/dL Glucose (65-100) mg/dL POC Glucose 258 H 247 H (70-105) Lactic Acid 3.90 H* (0.7-2.0) mmol/L Calcium (8.4-10.2) mg/dL Urine WBC (Auto) (0.0-6.0) /HPF Urine Creatinine (0.1-20.0) mg/dL Urine Total Protein (5-11.8) mg/dL 07/15/19 07/15/19 07/15/19 Range/Units 08:53 12:15 Unknown WBC (4.5-11.0) K/mm3 RBC (3.65-5.03) M/mm3 Hgb (10.1-14.3) gm/dl Hct (30.3-42.9) % MCV (79-97) fl MCH (28-32) pg RDW (13.2-15.2) % Plt Count (140-440) K/mm3 Seg Neuts % (Manual) (40.0-70.0) % Lymphocytes % (Manual) (13.4-35.0) % Seg Neutrophils # Man (1.8-7.7) K/mm3 Monocytes # (Manual) (0.0-0.8) K/mm3 Sodium 153 H D (137-145) mmol/L Potassium 2.7 L* (3.6-5.0) mmol/L Chloride 113.3 H (98-107) mmol/L BUN 97 H (7-17) mg/dL Creatinine 1.4 H (0.7-1.2) mg/dL Glucose 239 H (65-100) mg/dL POC Glucose 287 H (70-105) Lactic Acid (0.7-2.0) mmol/L Calcium 7.6 L (8.4-10.2) mg/dL Urine WBC (Auto) 12.0 H (0.0-6.0) /HPF Urine Creatinine (0.1-20.0) mg/dL Urine Total Protein (5-11.8) mg/dL 07/15/19 07/15/19 Range/Units Unknown Unknown WBC (4.5-11.0) K/mm3 RBC (3.65-5.03) M/mm3 Hgb (10.1-14.3) gm/dl Hct (30.3-42.9) % MCV (79-97) fl MCH (28-32) pg RDW (13.2-15.2) % Plt Count (140-440) K/mm3 Seg Neuts % (Manual) (40.0-70.0) % Lymphocytes % (Manual) (13.4-35.0) % Seg Neutrophils # Man (1.8-7.7) K/mm3 Monocytes # (Manual) (0.0-0.8) K/mm3 Sodium (137-145) mmol/L Potassium (3.6-5.0) mmol/L Chloride (98-107) mmol/L BUN (7-17) mg/dL Creatinine (0.7-1.2) mg/dL Glucose (65-100) mg/dL POC Glucose (70-105) Lactic Acid 3.20 H* (0.7-2.0) mmol/L Calcium (8.4-10.2) mg/dL Urine WBC (Auto) (0.0-6.0) /HPF Urine Creatinine 27.4 H (0.1-20.0) mg/dL Urine Total Protein 49 H (5-11.8) mg/dL
[2019-07-15] MEDS: POTASSIUM CHLORIDE 40 MEQ in SODIUM CHLORIDE 0.45% 1000 ML 1,000 ML IV SCH (13:48)
[2019-07-15] MEDS ORDERED: SODIUM CHLORIDE 0.9% 500 ML 500 ML IV NR (16:02)
--- NOTE | 2019-07-15 21:30 | Progress Note ---
Assessment and Plan - Patient Problems (1) Septic shock Current Visit: Yes Status: Acute Plan to address problem: Treat etiology. (2) Acute renal failure Current Visit: Yes Status: Acute Qualifiers: Acute renal failure type: unspecified Qualified Code(s): N17.9 - Acute kidney failure, unspecified Plan to address problem: continue hydration. (3) Decubitus ulcers Current Visit: Yes Status: Acute Qualifiers: Pressure injury location: unspecified location Pressure injury stage: unspecified pressure injury stage Qualified Code(s): L89.90 - Pressure ulcer of unspecified site, unspecified stage Plan to address problem: chronic.Wound care when indicated. (4) Failure to thrive Current Visit: Yes Status: Acute Qualifiers: Failure to thrive age range: in adult Qualified Code(s): R62.7 - Adult failure to thrive (5) Metabolic acidosis Current Visit: Yes Status: Acute Plan to address problem: Improving. (6) Pneumonia Current Visit: Yes Status: Acute Qualifiers: Pneumonia type: due to unspecified organism Laterality: bilateral Lung location: unspecified part of lung Qualified Code(s): J18.9 - Pneumonia, unspe cified organism Plan to address problem: Continue with ABX. Subjective Date of service: 07/15/19 Principal diagnosis: Sepsis, dehydration, AMS. Interval history: Patient seen/examined, resting in bed, notes/records/labs reviewed, still no family for discussion. Patient still remains in hospice.Appreciate all the consultants. patients records in the Computer will not allow Blood transfusion. No family available even on the phone for discussion.Wound care still awaiting. Patient seen/examined, resting in bed, clinically unchanged. I have put out a call to the daughter, and she is not calling back. Order given earlier today to proceed with blood transfusion, once the family ok. Consultants rec as know ,that chances of any meanningful recovery is nil, and hence , going back with hospice the best choice.I have asked GI to replace peg tube ,if feasible, then will send back to the [facility] under hospice once the daughter calls back. Objective - Constitutional Vitals: Vital Signs - 12hr 07/15/19 07/15/19 10:00 20:00 Temperature 98.3 F Pulse Rate 82 Respiratory 16 Rate Blood Pressure 62/34 [Left] O2 Sat by Pulse 97 92 Oximetry General appearance: Present: mild distress, cachectic - EENT Eyes: PERRL, EOM intact ENT: hearing intact, clear oral mucosa Ears: bilateral: normal - Neck Neck: supple, normal ROM - Respiratory Respiratory effort: normal Respiratory: bilateral: CTA - Breasts Breasts: deferred - Cardiovascular Rhythm: regular Heart Sounds: Present: S1 & S2. Absent: gallop, rub Extremities: pulses intact, No edema, normal color, Full ROM - Gastrointestinal General gastrointestinal: Present: soft, non-tender, non-distended, normal bowel sounds Rectal Exam: deferred - Genitourinary Female genitourinary: deferred - Integumentary Integumentary: clear, warm, dry - Musculoskeletal Musculoskeletal: 1, strength equal bilaterally - Neurologic Neurologic: moves all extremities - Psychiatric Psychiatric: memory intact, appropriate mood/affect, intact judgment & insight - Labs CBC & Chem 7: 07/14/19 04:43 07/15/19 08:53 Labs: Abnormal lab results 07/13/19 07/14/19 07/14/19 Range/Units 01:32 19:12 22:43 WBC 30.1 H (4.5-11.0) K/mm3 RBC 3.22 L (3.65-5.03) M/mm3 Hgb 7.6 L (10.1-14.3) gm/dl Hct 24.2 L (30.3-42.9) % MCV 75 L (79-97) fl MCH 24 L (28-32) pg RDW 21.1 H (13.2-15.2) % Plt Count 666 H (140-440) K/mm3 Seg Neuts % (Manual) 82.0 H (40.0-70.0) % Lymphocytes % (Manual) 4.0 L (13.4-35.0) % Seg Neutrophils # Man 24.7 H (1.8-7.7) K/mm3 Monocytes # (Manual) 1.5 H (0.0-0.8) K/mm3 Sodium (137-145) mmol/L Potassium (3.6-5.0) mmol/L Chloride (98-107) mmol/L BUN (7-17) mg/dL Creatinine (0.7-1.2) mg/dL Glucose (65-100) mg/dL POC Glucose 406 H 258 H (70-105) Lactic Acid (0.7-2.0) mmol/L Calcium (8.4-10.2) mg/dL Urine WBC (Auto) (0.0-6.0) /HPF Urine Creatinine (0.1-20.0) mg/dL Urine Total Protein (5-11.8) mg/dL Crossmatch 07/15/19 07/15/19 07/15/19 Range/Units 08:10 08:53 12:15 WBC (4.5-11.0) K/mm3 RBC (3.65-5.03) M/mm3 Hgb (10.1-14.3) gm/dl Hct (30.3-42.9) % MCV (79-97) fl MCH (28-32) pg RDW (13.2-15.2) % Plt Count (140-440) K/mm3 Seg Neuts % (Manual) (40.0-70.0) % Lymphocytes % (Manual) (13.4-35.0) % Seg Neutrophils # Man (1.8-7.7) K/mm3 Monocytes # (Manual) (0.0-0.8) K/mm3 Sodium 153 H D (137-145) mmol/L Potassium 2.7 L* (3.6-5.0) mmol/L Chloride 113.3 H (98-107) mmol/L BUN 97 H (7-17) mg/dL Creatinine 1.4 H (0.7-1.2) mg/dL Glucose 239 H (65-100) mg/dL POC Glucose 247 H 287 H (70-105) Lactic Acid (0.7-2.0) mmol/L Calcium 7.6 L (8.4-10.2) mg/dL Urine WBC (Auto) (0.0-6.0) /HPF Urine Creatinine (0.1-20.0) mg/dL Urine Total Protein (5-11.8) mg/dL Crossmatch 07/15/19 07/15/19 07/15/19 Range/Units 18:10 19:26 Unknown WBC (4.5-11.0) K/mm3 RBC (3.65-5.03) M/mm3 Hgb (10.1-14.3) gm/dl Hct (30.3-42.9) % MCV (79-97) fl MCH (28-32) pg RDW (13.2-15.2) % Plt Count (140-440) K/mm3 Seg Neuts % (Manual) (40.0-70.0) % Lymphocytes % (Manual) (13.4-35.0) % Seg Neutrophils # Man (1.8-7.7) K/mm3 Monocytes # (Manual) (0.0-0.8) K/mm3 Sodium (137-145) mmol/L Potassium (3.6-5.0) mmol/L Chloride (98-107) mmol/L BUN (7-17) mg/dL Creatinine (0.7-1.2) mg/dL Glucose (65-100) mg/dL POC Glucose 151 H (70-105) Lactic Acid (0.7-2.0) mmol/L Calcium (8.4-10.2) mg/dL Urine WBC (Auto) 12.0 H (0.0-6.0) /HPF Urine Creatinine (0.1-20.0) mg/dL Urine Total Protein (5-11.8) mg/dL Crossmatch See Detail 07/15/19 07/15/19 Range/Units Unknown Unknown WBC (4.5-11.0) K/mm3 RBC (3.65-5.03) M/mm3 Hgb (10.1-14.3) gm/dl Hct (30.3-42.9) % MCV (79-97) fl MCH (28-32) pg RDW (13.2-15.2) % Plt Count (140-440) K/mm3 Seg Neuts % (Manual) (40.0-70.0) % Lymphocytes % (Manual) (13.4-35.0) % Seg Neutrophils # Man (1.8-7.7) K/mm3 Monocytes # (Manual) (0.0-0.8) K/mm3 Sodium (137-145) mmol/L Potassium (3.6-5.0) mmol/L Chloride (98-107) mmol/L BUN (7-17) mg/dL Creatinine (0.7-1.2) mg/dL Glucose (65-100) mg/dL POC Glucose (70-105) Lactic Acid 3.20 H* (0.7-2.0) mmol/L Calcium (8.4-10.2) mg/dL Urine WBC (Auto) (0.0-6.0) /HPF Urine Creatinine 27.4 H (0.1-20.0) mg/dL Urine Total Protein 49 H (5-11.8) mg/dL Crossmatch
[2019-07-16] MEDS: POTASSIUM CHLORIDE 40 MEQ in SODIUM CHLORIDE 0.45% 1000 ML 1,000 ML IV SCH ×2 (00:04→21:05)
[2019-07-16] MEDS: INSULIN LISPRO 100 UNIT/ML SUB-Q SCH ×3 (08:00→23:16)
[2019-07-16] MEDS: FAMOTIDINE 20 MG TAB PO SCH (10:59)
[2019-07-16] MEDS: cefTRIAXone/NS 1 GM/50 ML 1 GM/50 ML BAG IV SCH (11:05)
[2019-07-16] MEDS: SODIUM HYPOCHLORITE, DAKIN'S 1/2 STRENGTH (0.25%) 473 ML TOPICAL SOLN TP SCH ×2 (11:05→23:16)
--- NOTE | 2019-07-16 12:19 | Progress Note ---
Assessment and Plan - Patient Problems (1) Acute renal failure Current Visit: Yes Status: Acute Qualifiers: Acute renal failure type: unspecified Qualified Code(s): N17.9 - Acute kidney failure, unspecified Plan to address problem: Likely in the setting of pre-renal injury. Showing improvement with IVF hydration. Overall prognosis is guarded. (2) Anemia in chronic illness Current Visit: Yes Status: Acute Plan to address problem: Management per heme/onc. (3) Decubitus ulcers Current Visit: Yes Status: Chronic Qualifiers: Pressure injury location: unspecified location Pressure injury stage: unspecified pressure injury stage Qualified Code(s): L89.90 - Pressure ulcer of unspecified site, unspecified stage Plan to address problem: Wound care is following. (4) Failure to thrive Current Visit: Yes Status: Acute Qualifiers: Failure to thrive age range: in adult Qualified Code(s): R62.7 - Adult failure to thrive Plan to address problem: Overall prognosis guarded. Per primary attending plan to replace PEG tube. Recommend hospice care. (5) Metabolic acidosis Current Visit: Yes Status: Acute Plan to address problem: Improvement noted with fluid hydration. Subjective Date of service: 07/16/19 Principal diagnosis: Sepsis, dehydration, AMS. Interval history: No acute changes, renal function has been showing improvement with hydration. Objective - Vital Signs Vital signs: Vital Signs - 12hr 07/16/19 07/16/19 07/16/19 00:44 07:40 08:56 Temperature 98.7 F 100.4 F H Pulse Rate 82 87 Respiratory 18 22 Rate Blood Pressure 67/38 65/38 O2 Sat by Pulse 98 93 98 Oximetry O2 Sat by Pulse Oximetry [ Assessment] 07/16/19 09:09 Temperature Pulse Rate Respiratory Rate Blood Pressure O2 Sat by Pulse Oximetry O2 Sat by Pulse 98 Oximetry [ Assessment] - General Appearance General appearance: cachectic, chronically ill, frail EENT: ATNC Neck: no JVD Respiratory: Present: Decreased Breath Sounds Cardiology: regular Gastrointestinal: normal Neurologic: aphasic Musculoskeletal: deferred - Lab 07/14/19 04:43 07/15/19 08:53 Most recent lab results Calcium 7.6 mg/dL (8.4-10.2) L 07/15/19 08:53 Urine Creatinine 27.4 mg/dL (0.1-20.0) H 07/15/19 Unknown Urine Sodium 39 mmol/L 07/15/19 Unknown Urine Total Protein 49 mg/dL (5-11.8) H 07/15/19 Unknown Medications & Allergies - Medications Allergies/Adverse Reactions: Allergies No Known Allergies Allergy (Unverified 09/30/13 14:18) Home Medications: Home Medications Medication Instructions Recorded Confirmed Last Taken Type Glycopyrrolate [Robinul] 1 mg PO BID 07/29/17 02/07/19 Unknown History Ipratropium/Albuterol Sulfate 1 ampul IH Q6HR 07/29/17 02/07/19 Unknown History [DUONEB *Not for PRN Use*] Acetaminophen [Acetaminophen 650 mg [place] Q6H PRN 11/03/18 02/07/19 Unknown History SUPPOS] Acetaminophen [Tylenol] 650 mg PO Q4H PRN 11/03/18 02/07/19 Unknown History Aspirin [Aspirin BABY CHEW TAB] 81 mg PO QDAY 11/03/18 02/07/19 Unknown History Baclofen [Lioresal] 10 mg PO QDAY 11/03/18 02/07/19 Unknown History Cranberry Fruit Concentrate 450 mg PO QDAY 11/03/18 02/07/19 Unknown History [Cranberry] Glucagon (Human Recomb) [Glucagen] 1 mg IM Q24H PRN 11/03/18 02/07/19 Unknown History HYDROcodone/APAP 7.5-325 [[place] 1 each PO Q8HR PRN 11/03/18 02/07/19 Unknown History 7.5-325 mg TAB] Hyoscyamine Sulfate [Hyoscyamine 0.125 mg PO Q4H PRN 11/03/18 02/07/19 Unknown History Rapdis 0.125 mg] Insulin Glargine [Lantus VIAL] 10 unit SUB-Q QHS 11/03/18 02/07/19 Unknown History LORazepam [Ativan] 1 mg PO Q4H PRN 11/03/18 02/07/19 Unknown History Magnesium Hydroxide [Milk of 30 ml PO Q3D 11/03/18 02/07/19 Unknown History Magnesia] Morphine Concentrate [MORPHINE 0.25 ml PO Q4HR PRN 11/03/18 02/07/19 Unknown History Conc 20 MG/ML ORAL LIQ] Promethazine [Phenergan SUPPOS] 25 mg [place] Q4H PRN 11/03/18 02/07/19 Unknown History Promethazine [Phenergan] 25 mg PO Q4H PRN 11/03/18 02/07/19 Unknown History Promethazine [Phenergan] 25 mg PO Q8HR PRN 11/03/18 02/07/19 Unknown History Sennosides Tab [Senokot] 17.2 mg PO BID 11/03/18 02/07/19 Unknown History bisacodyL [Dulcolax suppos] 10 mg [place] QDAY PRN 11/03/18 02/07/19 Unknown History Acetaminophen [Acetaminophen TAB] 650 mg PO Q4H PRN tablet 11/19/18 02/07/19 Unknown Rx Hyoscyamine Subl [Levsin Sl 0.125 0.125 mg SL Q4H PRN tablet 11/19/18 02/07/19 Unknown Rx TAB] Lansoprazole Solutab [Prevacid 30 mg FEEDTUBE BID tab.rapdis 11/19/18 02/07/19 Unknown Rx Solutab] Morphine Concentrate [MORPHINE 5 mg PO Q4H PRN oral.liqd 11/19/18 02/07/19 Unknown Rx Conc 20 MG/ML ORAL LIQ] Sodium Bicarbonate 325 mg FEEDTUBE PRN PRN tablet 11/19/18 02/07/19 Unknown Rx Famotidine [Pepcid] 20 mg PO QDAY 02/07/19 02/07/19 Unknown History Active Medications: Generic Name Dose Route Start Last Admin Trade Name Freq PRN Reason Stop Dose Admin Albuterol 2.5 mg 07/15/19 11:42 Proventil IH Q4HRT PRN Shortness Of Breath Lipase/Protease/Amylase 1 each 07/15/19 10:[address] 10,500 Unit FEEDTUBE PRN PRN For Clogged Feeding Tube Famotidine 20 mg 07/16/19 10:00 07/16/19 10:59 Pepcid PO Not Given QDAY TIMMY Ceftriaxone Sodium 1 gm in 50 mls @ 100 mls/hr 07/13/19 16:00 07/16/19 11:05 Rocephin/Ns 1 Gm/50 Ml IV 100 mls/hr Q24H TIMMY Administration Potassium Chloride 40 meq/ 1,020 mls @ 125 mls/hr 02/28/20 11:00 07/16/19 00:04 Sodium Chloride IV 125 mls/hr DIRECT TIMMY Administration Insulin Human Lispro 0 unit 07/14/19 17:37 07/16/19 08:00 Humalog SUB-Q 4 unit ACHS TIMMY Administration Protocol Simple Syrup 15 ml 07/15/19 10:43 Simple Syrup FEEDTUBE PRN PRN Hypoglycemia Simple Syrup 30 ml 07/15/19 10:43 Simple Syrup FEEDTUBE PRN PRN Hypoglycemia Sodium Bicarbonate 325 mg 07/15/19 10:43 Sodium Bicarbonate FEEDTUBE PRN PRN For Clogged Feeding Tube Sodium Hypochlorite 1 applic 07/14/19 10:00 07/16/19 11:05 Dakin's Half Strength TP 1 applicatio BID TIMMY Administration
--- NOTE | 2019-07-16 13:35 | Gastroenterology Consultation ---
History of Present Illness - Reason for Consult Consult date: 07/16/19 leakage around PEG Requesting physician: NANDA WADDELL - History of Present Illness This is a 73 yo female with pmh of HTN, CAD, DM, schizophrenia, anoxic brain injury, chronic respiratory failure s/p trach and PEG, extensive decubiti and admitted from halfway in hospice care. Current admission notable for initial septic shock with bacteremia and complicated UTI and acute kidney injur y. ID and nephrology on board. Gi consulted for leakage and bleeding around the PEG tube site. Medication list reviewed. Past History Past Medical History: stroke Social history: no significant social history, other (Lives in the [place].) Medications and Allergies Allergies Allergy/AdvReac Type Severity Reaction Status Date / Time No Known Allergies Allergy Unverified 09/30/13 14:18 Home Medications Medication Instructions Recorded Confirmed Last Taken Type Glycopyrrolate [Robinul] 1 mg PO BID 07/29/17 02/07/19 Unknown History Ipratropium/Albuterol Sulfate 1 ampul IH Q6HR 07/29/17 02/07/19 Unknown History [DUONEB *Not for PRN Use*] Acetaminophen [Acetaminophen 650 mg [place] Q6H PRN 11/03/18 02/07/19 Unknown History SUPPOS] Acetaminophen [Tylenol] 650 mg PO Q4H PRN 11/03/18 02/07/19 Unknown History Aspirin [Aspirin BABY CHEW TAB] 81 mg PO QDAY 11/03/18 02/07/19 Unknown History Baclofen [Lioresal] 10 mg PO QDAY 11/03/18 02/07/19 Unknown History Cranberry Fruit Concentrate 450 mg PO QDAY 11/03/18 02/07/19 Unknown History [Cranberry] Glucagon (Human Recomb) [Glucagen] 1 mg IM Q24H PRN 11/03/18 02/07/19 Unknown History HYDROcodone/APAP 7.5-325 [[place] 1 each PO Q8HR PRN 11/03/18 02/07/19 Unknown History 7.5-325 mg TAB] Hyoscyamine Sulfate [Hyoscyamine 0.125 mg PO Q4H PRN 11/03/18 02/07/19 Unknown History Rapdis 0.125 mg] Insulin Glargine [Lantus VIAL] 10 unit SUB-Q QHS 11/03/18 02/07/19 Unknown History LORazepam [Ativan] 1 mg PO Q4H PRN 11/03/18 02/07/19 Unknown History Magnesium Hydroxide [Milk of 30 ml PO Q3D 11/03/18 02/07/19 Unknown History Magnesia] Morphine Concentrate [MORPHINE 0.25 ml PO Q4HR PRN 11/03/18 02/07/19 Unknown History Conc 20 MG/ML ORAL LIQ] Promethazine [Phenergan SUPPOS] 25 mg [place] Q4H PRN 11/03/18 02/07/19 Unknown History Promethazine [Phenergan] 25 mg PO Q4H PRN 11/03/18 02/07/19 Unknown History Promethazine [Phenergan] 25 mg PO Q8HR PRN 11/03/18 02/07/19 Unknown History Sennosides Tab [Senokot] 17.2 mg PO BID 11/03/18 02/07/19 Unknown History bisacodyL [Dulcolax suppos] 10 mg [place] QDAY PRN 11/03/18 02/07/19 Unknown History Acetaminophen [Acetaminophen TAB] 650 mg PO Q4H PRN tablet 11/19/18 02/07/19 Unknown Rx Hyoscyamine Subl [Levsin Sl 0.125 0.125 mg SL Q4H PRN tablet 11/19/18 02/07/19 Unknown Rx TAB] Lansoprazole Solutab [Prevacid 30 mg FEEDTUBE BID tab.rapdis 11/19/18 02/07/19 Unknown Rx Solutab] Morphine Concentrate [MORPHINE 5 mg PO Q4H PRN oral.liqd 11/19/18 02/07/19 Unknown Rx Conc 20 MG/ML ORAL LIQ] Sodium Bicarbonate 325 mg FEEDTUBE PRN PRN tablet 11/19/18 02/07/19 Unknown Rx Famotidine [Pepcid] 20 mg PO QDAY 02/07/19 02/07/19 Unknown History Active Meds: Active Medications Albuterol (Proventil) 2.5 mg IH Q4HRT PRN PRN Reason: Shortness Of Breath Lipase/Protease/Amylase (Jarad Mccray 10,500 Unit) 1 each FEEDTUBE PRN PRN PRN Reason: For Clogged Feeding Tube Famotidine (Pepcid) 20 mg PO QDAY TIMMY Last Admin: 07/16/19 10:59 Dose: Not Given Documented by: Ceftriaxone Sodium (Rocephin/Ns 1 Gm/50 Ml) 1 gm in 50 mls @ 100 mls/hr IV Q24H [facility] Last Admin: 07/16/19 11:05 Dose: 100 mls/hr Documented by: Potassium Chloride 40 meq/ (Sodium Chloride) 1,020 mls @ 125 mls/hr IV DIRECT [facility] Last Admin: 07/16/19 00:04 Dose: 125 mls/hr Documented by: Insulin Human Lispro (Humalog) 0 unit SUB-Q ACHS [facility]; Protocol Last Admin: 07/16/19 08:00 Dose: 4 unit Documented by: Simple Syrup (Simple Syrup) 15 ml FEEDTUBE PRN PRN PRN Reason: Hypoglycemia Simple Syrup (Simple Syrup) 30 ml FEEDTUBE PRN PRN PRN Reason: Hypoglycemia Sodium Bicarbonate (Sodium Bicarbonate) 325 mg FEEDTUBE PRN PRN PRN Reason: For Clogged Feeding Tube Sodium Hypochlorite (Dakin's Half Strength) 1 applic TP BID [facility] Last Admin: 07/16/19 11:05 Dose: 1 applicatio Documented by: Review of Systems - Review of Systems ROS unobtainable: due to mental status Exam - Constitutional Vital Signs: Temp Pulse Resp BP Pulse Ox 100.4 F H 87 22 65/38 98 07/16/19 07:40 07/16/19 07:40 07/16/19 07:40 07/16/19 07:40 07/16/19 09:09 General appearance: no acute distress - Respiratory Respiratory: bilateral: diminished - Cardiovascular Rhythm: regular Heart Sounds: Present: S1 & S2 - Gastrointestinal General gastrointestinal: Present: soft, non-tender, non-distended, other (PEG tube place) - Labs CBC & Chem 7: 07/14/19 04:43 07/15/19 08:53 Lab Results: Laboratory Results - last 24 hr 07/15/19 07/15/19 07/15/19 18:10 19:26 22:40 POC Glucose 151 H 159 H Blood Type O POSITIVE Antibody Screen Negative Crossmatch See Detail 07/16/19 07/16/19 07:49 11:27 POC Glucose 227 H 238 H Blood Type Antibody Screen Crossmatch - Imaging CT Scan: report reviewed MRI: report reviewed Assessment and Plan # Leakage/bleeding around the PEG tube site. - the PEG tube was loose at around 7-8 cm, which was adjusted but not too tight at the abdominal wall. Irrigation through the PEG tube did not show any blood coming back. Flushes well. No signs of melena or blood in the stool. - noted to have Hgb down to 5.8 range on 07/14/2019 but no repeat done. - the leakage likely from ulceration of skin around the PEG site. Rec - check repeat CBC - Place dry gauze between the bumper and the abdominal skin and replaced twice daily - recommend CT abdomen if persistent leakage or bleeding around the PEG site and persistent anemia. Consider surgery consult. - attempted to reach family over the phone but no answer. Unclear if patient is still in hospice or not. - will follow.
[2019-07-16 18:49] LABS: Hematocrit 24.7 % (30.3-42.9); Hemoglobin 7.6 gm/dl (10.1-14.3); Mean Corpuscular HGB Conc 31 % (30-34); Mean Corpuscular Volume 76 fl (79-97); Platelet Count 228 K/mm3 (140-440); Red Blood Count 3.24 M/mm3 (3.65-5.03); Red Cell Distribution Width 21.4 % (13.2-15.2)
--- NOTE | 2019-07-16 21:42 | Progress Note ---
Assessment and Plan - Patient Problems (1) Septic shock Current Visit: Yes Status: Acute Plan to address problem: Treat etiology. (2) Acute renal failure Current Visit: Yes Status: Acute Qualifiers: Acute renal failure type: unspecified Qualified Code(s): N17.9 - Acute kidney failure, unspecified Plan to address problem: continue hydration. (3) Decubitus ulcers Current Visit: Yes Status: Chronic Qualifiers: Pressure injury location: unspecified location Pressure injury stage: unspecified pressure injury stage Qualified Code(s): L89.90 - Pressure ulcer of unspecified site, unspecified stage Plan to address problem: chronic.Wound care when indicated. (4) Failure to thrive Current Visit: Yes Status: Acute Qualifiers: Failure to thrive age range: in adult Qualified Code(s): R62.7 - Adult failure to thrive (5) Metabolic acidosis Current Visit: Yes Status: Acute Plan to address problem: Improving. (6) Pneumonia Current Visit: Yes Status: Acute Qualifiers: Pneumonia type: due to unspecified organism Laterality: bilateral Lung location: unspecified part of lung Qualified Code(s): J18.9 - Pneumonia, uns pecified organism Plan to address problem: Continue with ABX. Subjective Date of service: 07/16/19 Principal diagnosis: Sepsis, dehydration, AMS. Interval history: Patient seen/examined, resting in bed, notes/records/labs reviewed, still no family for discussion. Patient still remains in hospice.Appreciate all the consultants. patients records in the Computer will not allow Blood transfusion. No family available even on the phone for discussion.Wound care still awaiting. Patient seen/examined, resting in bed, clinically unchanged. I have put out a call to the daughter, and she is not calling back. Order given earlier today to proceed with blood transfusion, once the family ok. Consultants rec as know ,that chances of any meaningful recovery is nil, and hence , going back with hospice the best choice.I have asked GI to replace peg tube ,if feasible, then will send back to the [facility] under hospice once the daughter calls back. Patient seen/examined, resting in bed, records reviewed,still no answer from the daughter, even Gi tried to call her also, but no response.Once peg tube replaced, will plan d/c back to the [facility] under hospice. Objective - Constitutional Vitals: Vital Signs - 12hr 07/16/19 07/16/19 07/16/19 10:00 13:43 13:55 Temperature 100.1 F H 98.9 F Pulse Rate 66 92 H Pulse Rate [ 97 H Right Brachial] Respiratory 20 20 20 Rate Blood Pressure 73/43 75/46 O2 Sat by Pulse 97 98 92 Oximetry O2 Sat by Pulse Oximetry [ Assessment] 07/16/19 07/16/19 07/16/19 13:58 14:28 14:58 Temperature 98.9 F 97.4 F L 97.4 F L Pulse Rate 92 H 101 H 96 H Pulse Rate [ Right Brachial] Respiratory 20 20 20 Rate Blood Pressure 75/46 77/44 70/39 O2 Sat by Pulse 92 90 Oximetry O2 Sat by Pulse Oximetry [ Assessment] 07/16/19 07/16/19 07/16/19 15:28 15:58 17:57 Temperature 98.9 F 98.2 F Pulse Rate 93 H 97 H 96 H Pulse Rate [ Right Brachial] Respiratory 20 20 Rate Blood Pressure 69/43 69/45 77/48 O2 Sat by Pulse 91 91 81 L Oximetry O2 Sat by Pulse Oximetry [ Assessment] 07/16/19 07/16/19 07/16/19 19:22 20:11 20:12 Temperature Pulse Rate Pulse Rate [ Right Brachial] Respiratory Rate Blood Pressure O2 Sat by Pulse 99 Oximetry O2 Sat by Pulse 98 99 Oximetry [ Assessment] 07/16/19 07/16/19 20:47 20:48 Temperature 100.3 F H Pulse Rate 93 H Pulse Rate [ Right Brachial] Respiratory 22 Rate Blood Pressure 56/26 65/34 O2 Sat by Pulse 91 Oximetry O2 Sat by Pulse Oximetry [ Assessment] General appearance: Present: mild distress, cachectic - EENT Eyes: PERRL, EOM intact ENT: hearing intact, clear oral mucosa Ears: bilateral: normal - Neck Neck: supple, normal ROM - Respiratory Respiratory effort: normal Respiratory: bilateral: CTA - Breasts Breasts: deferred - Cardiovascular Rhythm: regular Heart Sounds: Present: S1 & S2. Absent: gallop, rub Extremities: pulses intact, No edema, normal color, Full ROM - Gastrointestinal General gastrointestinal: Present: soft, non-tender, non-distended, normal bowel sounds Rectal Exam: deferred - Genitourinary Female genitourinary: deferred - Integumentary Integumentary: clear, warm, dry - Musculoskeletal Musculoskeletal: 1, strength equal bilaterally - Neurologic Neurologic: moves all extremities - Psychiatric Psychiatric: memory intact, appropriate mood/affect, intact judgment & insight - Labs CBC & Chem 7: 07/16/19 18:26 07/15/19 08:53 Labs: Abnormal lab results 07/15/19 07/15/19 07/16/19 Range/Units 19:26 22:40 07:49 WBC (4.5-11.0) K/mm3 RBC (3.65-5.03) M/mm3 Hgb (10.1-14.3) gm/dl Hct (30.3-42.9) % MCV (79-97) fl MCH (28-32) pg RDW (13.2-15.2) % POC Glucose 159 H 227 H (70-105) Crossmatch See Detail 07/16/19 07/16/19 07/16/19 Range/Units 11:27 14:02 16:50 WBC (4.5-11.0) K/mm3 RBC (3.65-5.03) M/mm3 Hgb (10.1-14.3) gm/dl Hct (30.3-42.9) % MCV (79-97) fl MCH (28-32) pg RDW (13.2-15.2) % POC Glucose 238 H 163 H 173 H (70-105) Crossmatch 07/16/19 Range/Units 18:26 WBC 18.5 H (4.5-11.0) K/mm3 RBC 3.24 L (3.65-5.03) M/mm3 Hgb 7.6 L (10.1-14.3) gm/dl Hct 24.7 L (30.3-42.9) % MCV 76 L (79-97) fl MCH 23 L (28-32) pg RDW 21.4 H (13.2-15.2) % POC Glucose (70-105) Crossmatch
[2019-07-17] MEDS: POTASSIUM CHLORIDE 40 MEQ in SODIUM CHLORIDE 0.45% 1000 ML 1,000 ML IV SCH ×2 (05:52→15:04)
--- NOTE | 2019-07-17 07:50 | Event Note ---
Date: 07/17/[address] Ruvalcaba again this morning. We discussed the patient briefly last night. I again informed him that I am not vacation planner for new consults or the ER this weekend. Dr. Caicedo is vacation planner and should be given this consult. It sounds like someone just gave him my name and that it is why he called me. He agreed to call Dr. Caicedo for this consult.
--- NOTE | 2019-07-17 07:51 | Progress Note ---
Assessment and Plan - Patient Problems (1) Acute renal failure Current Visit: Yes Status: Acute Qualifiers: Acute renal failure type: unspecified Qualified Code(s): N17.9 - Acute kidney failure, unspecified Plan to address problem: Likely in the setting of pre-renal injury. Showing improvement with IVF hydration. Overall prognosis is guarded. Recheck BMP in am with replacement of hypokalemia (2) Anemia in chronic illness Current Visit: Yes Status: Acute Plan to address problem: Management per heme/onc. (3) Decubitus ulcers Current Visit: Yes Status: Chronic Qualifiers: Pressure injury location: unspecified location Pressure injury stage: unspecified pressure injury stage Qualified Code(s): L89.90 - Pressure ulcer of unspecified site, unspecified stage Plan to address problem: Wound care is following. (4) Failure to thrive Current Visit: Yes Status: Acute Qualifiers: Failure to thrive age range: in adult Qualified Code(s): R62.7 - Adult failure to thrive Plan to address problem: Overall prognosis guarded. Per primary attending plan to replace PEG tube. Recommend hospice care. (5) Metabolic acidosis Current Visit: Yes Status: Acute Plan to address problem: Improvement noted with fluid hydration. Subjective Date of service: 07/17/19 Principal diagnosis: Sepsis, dehydration, AMS. Interval history: No acute changes from renal standpoint. Objective - Vital Signs Vital signs: Vital Signs - 12hr 07/16/19 07/16/19 07/16/19 20:11 20:12 20:47 Temperature 100.3 F H Pulse Rate 93 H Pulse Rate [ Right Brachial] Respiratory 22 Rate Blood Pressure 56/26 Blood Pressure [Left] O2 Sat by Pulse 99 91 Oximetry O2 Sat by Pulse 99 Oximetry [ Assessment] 07/16/19 07/16/19 07/17/19 20:48 22:00 01:49 Temperature 99.2 F Pulse Rate 85 Pulse Rate [ 93 H Right Brachial] Respiratory 22 22 Rate Blood Pressure 65/34 Blood Pressure [Left] O2 Sat by Pulse 93 92 Oximetry O2 Sat by Pulse Oximetry [ Assessment] 07/17/19 03:18 Temperature Pulse Rate Pulse Rate [ Right Brachial] Respiratory Rate Blood Pressure Blood Pressure 61/36 [Left] O2 Sat by Pulse Oximetry O2 Sat by Pulse Oximetry [ Assessment] - General Appearance General appearance: cachectic, chronically ill, frail EENT: ATNC Neck: no JVD Respiratory: Present: Decreased Breath Sounds Cardiology: regular, S1S2 Gastrointestinal: normal Integumentary: no rash Musculoskeletal: deferred - Lab 07/16/19 18:26 07/15/19 08:53 Most recent lab results Calcium 7.6 mg/dL (8.4-10.2) L 07/15/19 08:53 Urine Creatinine 27.4 mg/dL (0.1-20.0) H 07/15/19 Unknown Urine Sodium 39 mmol/L 07/15/19 Unknown Urine Total Protein 49 mg/dL (5-11.8) H 07/15/19 Unknown Medications & Allergies - Medications Allergies/Adverse Reactions: Allergies No Known Allergies Allergy (Unverified 09/30/13 14:18) Home Medications: Home Medications Medication Instructions Recorded Confirmed Last Taken Type Glycopyrrolate [Robinul] 1 mg PO BID 07/29/17 02/07/19 Unknown History Ipratropium/Albuterol Sulfate 1 ampul IH Q6HR 07/29/17 02/07/19 Unknown History [DUONEB *Not for PRN Use*] Acetaminophen [Acetaminophen 650 mg [place] Q6H PRN 11/03/18 02/07/19 Unknown History SUPPOS] Acetaminophen [Tylenol] 650 mg PO Q4H PRN 11/03/18 02/07/19 Unknown History Aspirin [Aspirin BABY CHEW TAB] 81 mg PO QDAY 11/03/18 02/07/19 Unknown History Baclofen [Lioresal] 10 mg PO QDAY 11/03/18 02/07/19 Unknown History Cranberry Fruit Concentrate 450 mg PO QDAY 11/03/18 02/07/19 Unknown History [Cranberry] Glucagon (Human Recomb) [Glucagen] 1 mg IM Q24H PRN 11/03/18 02/07/19 Unknown History HYDROcodone/APAP 7.5-325 [[place] 1 each PO Q8HR PRN 11/03/18 02/07/19 Unknown History 7.5-325 mg TAB] Hyoscyamine Sulfate [Hyoscyamine 0.125 mg PO Q4H PRN 11/03/18 02/07/19 Unknown History Rapdis 0.125 mg] Insulin Glargine [Lantus VIAL] 10 unit SUB-Q QHS 11/03/18 02/07/19 Unknown Histo ry LORazepam [Ativan] 1 mg PO Q4H PRN 11/03/18 02/07/19 Unknown History Magnesium Hydroxide [Milk of 30 ml PO Q3D 11/03/18 02/07/19 Unknown History Magnesia] Morphine Concentrate [MORPHINE 0.25 ml PO Q4HR PRN 11/03/18 02/07/19 Unknown History Conc 20 MG/ML ORAL LIQ] Promethazine [Phenergan SUPPOS] 25 mg ID Q4H PRN 11/03/18 02/07/19 Unknown History Promethazine [Phenergan] 25 mg PO Q4H PRN 11/03/18 02/07/19 Unknown History Promethazine [Phenergan] 25 mg PO Q8HR PRN 11/03/18 02/07/19 Unknown History Sennosides Tab [Senokot] 17.2 mg PO BID 11/03/18 02/07/19 Unknown History bisacodyL [Dulcolax suppos] 10 mg ID QDAY PRN 11/03/18 02/07/19 Unknown History Acetaminophen [Acetaminophen TAB] 650 mg PO Q4H PRN tablet 11/19/18 02/07/19 Unknown Rx Hyoscyamine Subl [Levsin Sl 0.125 0.125 mg SL Q4H PRN tablet 11/19/18 02/07/19 Unknown Rx TAB] Lansoprazole Solutab [Prevacid 30 mg FEEDTUBE BID tab.rapdis 11/19/18 02/07/19 Unknown Rx Solutab] Morphine Concentrate [MORPHINE 5 mg PO Q4H PRN oral.liqd 11/19/18 02/07/19 Unknown Rx Conc 20 MG/ML ORAL LIQ] Sodium Bicarbonate 325 mg FEEDTUBE PRN PRN tablet 11/19/18 02/07/19 Unknown Rx Famotidine [Pepcid] 20 mg PO QDAY 02/07/19 02/07/19 Unknown History Active Medications: Generic Name Dose Route Start Last Admin Trade Name Freq PRN Reason Stop Dose Admin Albuterol 2.5 mg 07/15/19 11:42 Proventil IH Q4HRT PRN Shortness Of Breath Lipase/Protease/Amylase 1 each 07/15/19 10:[address] 10,500 Unit FEEDTUBE PRN PRN For Clogged Feeding Tube Famotidine 20 mg 07/16/19 10:00 07/16/19 10:59 Pepcid PO Not Given QDAY TIMMY Ceftriaxone Sodium 1 gm in 50 mls @ 100 mls/hr 07/13/19 16:00 07/16/19 11:05 Rocephin/Ns 1 Gm/50 Ml IV 100 mls/hr Q24H TIMMY Administration Potassium Chloride 40 meq/ 1,020 mls @ 125 mls/hr 07/15/19 11:00 07/17/19 05:52 Sodium Chloride IV 125 mls/hr DIRECT TIMMY Administration Insulin Human Lispro 0 unit 07/14/19 17:37 07/16/19 23:16 Humalog SUB-Q Not Given ACHS TIMMY Protocol Simple Syrup 15 ml 07/15/19 10:43 Simple Syrup FEEDTUBE PRN PRN Hypoglycemia Simple Syrup 30 ml 07/15/19 10:43 Simple Syrup FEEDTUBE PRN PRN Hypoglycemia Sodium Bicarbonate 325 mg 07/15/19 10:43 Sodium Bicarbonate FEEDTUBE PRN PRN For Clogged Feeding Tube Sodium Hypochlorite 1 applic 07/14/19 10:00 07/16/19 23:16 Dakin's Half Strength TP 1 applicatio BID TIMMY Administration
[2019-07-17] MEDS: INSULIN LISPRO 100 UNIT/ML SUB-Q SCH ×4 (08:30→23:12)
--- NOTE | 2019-07-17 15:22 | Gastroenterology Progress Note ---
Assessment and Plan # Leakage/bleeding around the PEG tube site. - PEG tube replaced by bedside. Old PEG tube removed after deflating the internal balloon and replaced with 16 Fr replacement tube using standard aseptic technique and 8 cc of saline was infused to the internal balloon. Outer bumper at around 4 cm. No immediate complication noted and patient tolerated it well. Gastric gurgling sound heard with instillation of air. - Hgb at 7.6 post transfusion. - the leakage likely from ulceration of skin around the PEG site. Rec - recommend wound care consult. - Place dry gauze between the bumper and the abdominal skin and replaced twice daily - recommend CT abdomen if persistent leakage around the PEG site and persistent anemia and there's concern for persistent sepsis. - attempted to reach family over the phone but no answer. Unclear if patient is still in hospice or not. - will follow. Subjective Date of service: 07/17/19 Principal diagnosis: Sepsis, dehydration, AMS. Interval history: Per nursing, persistent leakage but no bleeding around the PEG tube site. No BM. Objective - Constitutional Vitals: Temp Pulse Resp BP Pulse Ox 98.7 F 116 H 20 64/31 98 07/17/19 13:20 07/17/19 13:20 07/17/19 08:25 07/17/19 13:20 07/17/19 13:20 General appearance: no acute distress - Neck Neck: other (trach) - Cardiovascular Rhythm: regular Heart Sounds: Present: S1 & S2 - Gastrointestinal General gastrointestinal: Present: soft, non-tender, other (PEG tube in place with surrounding ulcerated skin) - Labs CBC & Chem 7: 07/16/19 18:26 07/15/19 08:53 Labs: Laboratory Results - last 24 hr 07/15/19 07/16/19 07/16/19 19:26 16:50 18:26 WBC 18.5 H RBC 3.24 L Hgb 7.6 L Hct 24.7 L MCV 76 L MCH 23 L MCHC 31 RDW 21.4 H Plt Count 228 POC Glucose 173 H Crossmatch See Detail 07/16/19 07/17/19 07/17/19 21:38 08:07 11:54 WBC RBC Hgb Hct MCV MCH MCHC RDW Plt Count POC Glucose 143 H 209 H 191 H Crossmatch
--- NOTE | 2019-07-17 15:37 | Progress Note ---
Assessment and Plan - Patient Problems (1) Septic shock Current Visit: Yes Status: Acute Plan to address problem: Treat etiology. (2) Acute renal failure Current Visit: Yes Status: Acute Qualifiers: Acute renal failure type: unspecified Qualified Code(s): N17.9 - Acute kidney failure, unspecified Plan to address problem: continue hydration. (3) Decubitus ulcers Current Visit: Yes Status: Chronic Qualifiers: Pressure injury location: unspecified location Pressure injury stage: unspecified pressure injury stage Qualified Code(s): L89.90 - Pressure ulcer of unspecified site, unspecified stage Plan to address problem: chronic.Wound care when indicated. (4) Failure to thrive Current Visit: Yes Status: Acute Qualifiers: Failure to thrive age range: in adult Qualified Code(s): R62.7 - Adult failure to thrive (5) Metabolic acidosis Current Visit: Yes Status: Acute Plan to address problem: Improving. (6) Pneumonia Current Visit: Yes Status: Acute Qualifiers: Pneumonia type: due to unspecified organism Laterality: bilateral Lung location: unspecified part of lung Qualified Code(s): J18.9 - Pneumonia, uns pecified organism Plan to address problem: Continue with ABX. Subjective Date of service: 07/17/19 Principal diagnosis: Sepsis, dehydration, AMS. Interval history: Patient seen/examined, resting in bed, notes/records/labs reviewed, still no family for discussion. Patient still remains in hospice.Appreciate all the consultants. patients records in the Computer will not allow Blood transfusion. No family available even on the phone for discussion.Wound care still awaiting. Patient seen/examined, resting in bed, clinically unchanged. I have put out a call to the daughter, and she is not calling back. Order given earlier today to proceed with blood transfusion, once the family ok. Consultants rec as know ,that chances of any meaningful recovery is nil, and hence , going back with hospice the best choice.I have asked GI to replace peg tube ,if feasible, then will send back to the NH under hospice once the daughter calls back. Patient seen/examined, resting in bed, records reviewed,still no answer from the daughter, even Gi tried to call her also, but no response.Once peg tube replaced, will plan [facility] [place] [facility]. Patient seen/examined, resting in bed, records reviewed, discussed with GI, post peg tube replacement. peg area with some ulceration. Will ask wound care to see, and do CT of the abdomen.Still trying to communicate with the daughter.Will check new labs, to see if WBC coming down with IV ABX. Objective - Constitutional Vitals: Vital Signs - 12hr 07/17/19 07/17/19 07/17/19 08:25 08:50 10:00 Temperature 98.8 F Pulse Rate 105 H Respiratory 20 Rate Blood Pressure 53/24 O2 Sat by Pulse 96 94 Oximetry O2 Sat by Pulse 94 Oximetry [ Assessment] 07/17/19 13:20 Temperature 98.7 F Pulse Rate 116 H Respiratory Rate Blood Pressure 64/31 O2 Sat by Pulse 98 Oximetry O2 Sat by Pulse Oximetry [ Assessment] General appearance: Present: mild distress, cachectic - EENT Eyes: PERRL, EOM intact ENT: hearing intact, clear oral mucosa Ears: bilateral: normal - Neck Neck: supple, normal ROM - Respiratory Respiratory effort: normal Respiratory: bilateral: CTA - Breasts Breasts: deferred - Cardiovascular Rhythm: regular Heart Sounds: Present: S1 & S2. Absent: gallop, rub Extremities: pulses intact, No edema, normal color, Full ROM - Gastrointestinal General gastrointestinal: Present: soft, non-tender, non-distended, normal bowel sounds Rectal Exam: deferred - Genitourinary Female genitourinary: deferred - Integumentary Integumentary: clear, warm, dry - Musculoskeletal Musculoskeletal: 1, strength equal bilaterally - Neurologic Neurologic: moves all extremities - Psychiatric Psychiatric: memory intact, appropriate mood/affect, intact judgment & insight - Labs CBC & Chem 7: 07/16/19 18:26 07/15/19 08:53 Labs: Abnormal lab results 07/15/19 07/16/19 07/16/19 Range/Units 19:26 16:50 18:26 WBC 18.5 H (4.5-11.0) K/mm3 RBC 3.24 L (3.65-5.03) M/mm3 Hgb 7.6 L (10.1-14.3) gm/dl Hct 24.7 L (30.3-42.9) % MCV 76 L (79-97) fl MCH 23 L (28-32) pg RDW 21.4 H (13.2-15.2) % POC Glucose 173 H (70-105) Crossmatch See Detail 07/16/19 07/17/19 07/17/19 Range/Units 21:38 08:07 11:54 WBC (4.5-11.0) K/mm3 RBC (3.65-5.03) M/mm3 Hgb (10.1-14.3) gm/dl Hct (30.3-42.9) % MCV (79-97) fl MCH (28-32) pg RDW (13.2-15.2) % POC Glucose 143 H 209 H 191 H (70-105) Crossmatch
[2019-07-17] MEDS: cefTRIAXone/NS 1 GM/50 ML 1 GM/50 ML BAG IV SCH ×2 (17:01→17:14)
[2019-07-17] MEDS: SODIUM HYPOCHLORITE, DAKIN'S 1/2 STRENGTH (0.25%) 473 ML TOPICAL SOLN TP SCH ×2 (17:16→23:14)
[2019-07-17] MEDS: FAMOTIDINE 20 MG TAB PO SCH (19:26)
[2019-07-17] MEDS ORDERED: ACETAMINOPHEN 325 MG/10.15 ML ORAL LIQD UNIT DOSE FEEDTUBE PRN (21:47)
[2019-07-17] MEDS ORDERED: VANCOMYCIN/NS 1 GM/250 ML 1 GM/250 ML BAG IV ONE (22:00)
[2019-07-17] MEDS ORDERED: VANCOMYCIN PHARMACY TO DOSE IV SCH (23:00)
[2019-07-18] MEDS: POTASSIUM CHLORIDE 40 MEQ in SODIUM CHLORIDE 0.45% 1000 ML 1,000 ML IV SCH ×3 (02:35→19:35)
[2019-07-18] MEDS: INSULIN LISPRO 100 UNIT/ML SUB-Q SCH ×6 (09:21→22:03)
[2019-07-18] MEDS: SODIUM HYPOCHLORITE, DAKIN'S 1/2 STRENGTH (0.25%) 473 ML TOPICAL SOLN TP SCH ×2 (09:22→21:40)
[2019-07-18] MEDS: FAMOTIDINE 20 MG TAB PO SCH (09:22)
--- NOTE | 2019-07-18 10:29 | Progress Note ---
Assessment and Plan - Patient Problems (1) Acute renal failure Current Visit: Yes Status: Acute Qualifiers: Acute renal failure type: unspecified Qualified Code(s): N17.9 - Acute kidney failure, unspecified Plan to address problem: Likely in the setting of pre-renal injury. Showing improvement with IVF hydration. Overall prognosis is guarded. Recommend continuation of hospice care (2) Anemia in chronic illness Current Visit: Yes Status: Acute Plan to address problem: management as per Dr Ruvalcaba (3) Decubitus ulcers Current Visit: Yes Status: Chronic Qualifiers: Pressure injury location: unspecified location Pressure injury stage: unspecified pressure injury stage Qualified Code(s): L89.90 - Pressure ulcer of unspecified site, unspecified stage Plan to address problem: Wound care is following. (4) Metabolic acidosis Current Visit: Yes Status: Acute Plan to address problem: Improvement noted with fluid hydration. (5) Failure to thrive Current Visit: Yes Status: Acute Qualifiers: Failure to thrive age range: in adult Qualified Code(s): R62.7 - Adult failure to thrive Plan to address problem: Overall prognosis guarded. Per primary attending plan to replace PEG tube. Recommend hospice care. Subjective Date of service: 07/18/19 Principal diagnosis: Sepsis, dehydration, AMS. Interval history: Pt remains obtunded, non-verbal. Objective - Vital Signs Vital signs: Vital Signs - 12hr 07/17/19 07/18/19 07/18/19 23:12 02:55 04:00 Temperature 103.0 F H Pulse Rate 127 H Respiratory 20 32 H Rate Blood Pressure 58/33 O2 Sat by Pulse 99 Oximetry O2 Sat by Pulse 93 Oximetry [ Assessment] 07/18/19 07/18/19 07/18/19 08:00 08:32 08:44 Temperature 100.1 F H Pulse Rate 98 H Respiratory 22 Rate Blood Pressure 66/27 O2 Sat by Pulse 94 95 Oximetry O2 Sat by Pulse 95 Oximetry [ Assessment] - General Appearance General appearance: cachectic, chronically ill EENT: ATNC, mucous membranes dry Neck: no JVD Respiratory: Present: Decreased Breath Sounds Cardiology: regular, S1S2 Gastrointestinal: normoactive bowel sounds Integumentary: no rash, other (no edema ) Neurologic: obtunded - Lab 07/16/19 18:26 07/15/19 08:53 Most recent lab results Calcium 7.6 mg/dL (8.4-10.2) L 07/15/19 08:53 Urine Creatinine 27.4 mg/dL (0.1-20.0) H 07/15/19 Unknown Urine Sodium 39 mmol/L 07/15/19 Unknown Urine Total Protein 49 mg/dL (5-11.8) H 07/15/19 Unknown Medications & Allergies - Medications Allergies/Adverse Reactions: Allergies No Known Allergies Allergy (Unverified 09/30/13 14:18) Home Medications: Home Medications Medication Instructions Recorded Confirmed Last Taken Type Glycopyrrolate [Robinul] 1 mg PO BID 07/29/17 07/18/19 Unknown History Ipratropium/Albuterol Sulfate 1 ampul IH Q6HR 07/29/17 07/18/19 Unknown History [DUONEB *Not for PRN Use*] Acetaminophen [Acetaminophen 650 mg NV Q6H PRN 11/03/18 07/18/19 Unknown History SUPPOS] Acetaminophen [Tylenol] 650 mg PO Q4H PRN 11/03/18 07/18/19 Unknown History Aspirin [Aspirin BABY CHEW TAB] 81 mg PO QDAY 11/03/18 07/18/19 Unknown History Baclofen [Lioresal] 10 mg PO QDAY 11/03/18 07/18/19 Unknown History Cranberry Fruit Concentrate 450 mg PO QDAY 11/03/18 07/18/19 Unknown History [Cranberry] Glucagon (Human Recomb) [Glucagen] 1 mg IM Q24H PRN 11/03/18 07/18/19 Unknown History HYDROcodone/APAP 7.5-325 [[place] 1 each PO Q8HR PRN 11/03/18 07/18/19 Unknown History 7.5-325 mg TAB] Hyoscyamine Sulfate [Hyoscyamine 0.125 mg PO Q4H PRN 11/03/18 07/18/19 Unknown History Rapdis 0.125 mg] Insulin Glargine [Lantus VIAL] 10 unit SUB-Q QHS 11/03/18 07/18/19 Unknown History LORazepam [Ativan] 1 mg PO Q4H PRN 11/03/18 07/18/19 Unknown History Magnesium Hydroxide [Milk of 30 ml PO Q3D 11/03/18 07/18/19 Unknown History Magnesia] Morphine Concentrate [MORPHINE 0.25 ml PO Q4HR PRN 11/03/18 07/18/19 Unknown History Conc 20 MG/ML ORAL LIQ] Promethazine [Phenergan SUPPOS] 25 mg NV Q4H PRN 11/03/18 07/18/19 Unknown History Promethazine [Phenergan] 25 mg PO Q4H PRN 11/03/18 07/18/19 Unknown History Promethazine [Phenergan] 25 mg PO Q8HR PRN 11/03/18 07/18/19 Unknown History Sennosides Tab [Senokot] 17.2 mg PO BID 11/03/18 07/18/19 Unknown History bisacodyL [Dulcolax suppos] 10 mg NV QDAY PRN 11/03/18 07/18/19 Unknown History Acetaminophen [Acetaminophen TAB] 650 mg PO Q4H PRN tablet 11/19/18 07/18/19 Unknown Rx Hyoscyamine Subl [Levsin Sl 0.125 0.125 mg SL Q4H PRN tablet 11/19/18 07/18/19 Unknown Rx TAB] Lansoprazole Solutab [Prevacid 30 mg FEEDTUBE BID tab.rapdis 11/19/18 07/18/19 Unknown Rx Solutab] Morphine Concentrate [MORPHINE 5 mg PO Q4H PRN oral.liqd 11/19/18 07/18/19 Unknown Rx Conc 20 MG/ML ORAL LIQ] Sodium Bicarbonate 325 mg FEEDTUBE PRN PRN tablet 11/19/18 07/18/19 Unknown Rx Famotidine [Pepcid] 20 mg PO QDAY 02/07/19 07/18/19 Unknown History Active Medications: Generic Name Dose Route Start Last Admin Trade Name Freq PRN Reason Stop Dose Admin Acetaminophen 650 mg 07/17/19 21:47 07/17/19 23:12 Tylenol FEEDTUBE 650 mg Q6H PRN Administration Fever >101 Albuterol 2.5 mg 07/15/19 11:42 Proventil IH Q4HRT PRN Shortness Of Breath Lipase/Protease/Amylase 1 each 07/15/19 10:[address] 10,500 Unit FEEDTUBE PRN PRN For Clogged Feeding Tube Famotidine 20 mg 07/16/19 10:00 07/18/19 09:22 Pepcid PO 20 mg QDAY TIMMY Administration Ceftriaxone Sodium 1 gm in 50 mls @ 100 mls/hr 07/13/19 16:00 07/17/19 17:14 Rocephin/Ns 1 Gm/50 Ml IV 100 mls/hr Q24H TIMMY Administration Potassium Chloride 40 meq/ 1,020 mls @ 125 mls/hr 07/15/19 11:00 07/18/19 02:35 Sodium Chloride IV 125 mls/hr DIRECT TIMMY Administration Insulin Human Lispro 0 unit 07/14/19 17:37 07/18/19 09:27 Humalog SUB-Q 4 unit ACHS TIMMY Administration Protocol Simple Syrup 15 ml 07/15/19 10:43 Simple Syrup FEEDTUBE PRN PRN Hypoglycemia Simple Syrup 30 ml 07/15/19 10:43 Simple Syrup FEEDTUBE PRN PRN Hypoglycemia Sodium Bicarbonate 325 mg 07/15/19 10:43 Sodium Bicarbonate FEEDTUBE PRN PRN For Clogged Feeding Tube Sodium Hypochlorite 1 applic 07/14/19 10:00 07/18/19 09:22 Dakin's Half Strength TP 1 applicatio BID TIMMY Administration
--- NOTE | 2019-07-18 10:47 | Gastroenterology Progress Note ---
Assessment and Plan # Leakage/bleeding around the PEG tube site. - PEG tube replaced by bedside on 07/17/2019. - the leakage likely from ulceration of skin around the PEG site and it's improving. - patient was taken down for CT but could not undergo imaging due to contracture. Rec - recommend wound care consult. - Place dry gauze between the bumper and the abdominal skin and replaced twice daily - will follow. Subjective Date of service: 07/18/19 Principal diagnosis: Sepsis, dehydration, AMS. Interval history: Per nursing, minimal drainage around the PEG tube site overnight. Objective - Constitutional Vitals: Temp Pulse Resp BP Pulse Ox 100.1 F H 98 H 22 66/27 95 07/18/19 08:32 07/18/19 08:32 07/18/19 08:32 07/18/19 08:32 07/18/19 08:44 General appearance: no acute distress - Respiratory Respiratory: bilateral: diminished - Cardiovascular Rhythm: regular Heart Sounds: Present: S1 & S2 - Gastrointestinal General gastrointestinal: Present: soft, non-tender, non-distended - Labs CBC & Chem 7: 07/16/19 18:26 07/15/19 08:53 Labs: Laboratory Results - last 24 hr 07/17/19 07/17/19 07/17/19 11:54 17:04 22:31 POC Glucose 191 H 143 H 182 H 07/18/19 07:50 POC Glucose 248 H
--- NOTE | 2019-07-18 11:41 | Progress Note ---
Assessment and Plan Cultures: Blood cultures 07/13/2019 E. coli 4 out of 4 bottles. Urine culture 10,000-100,000 mixed colonies Assessment: 73 years old female with history of hypertension, CAD/OR, diabetes, schizoph axel, anoxic brain injury, chronic respiratory failure status post trach and PEG placement, chronic indwelling Blackman, extensive decubiti, [facility] where she [facility] in [facility], admitted on 07/13/2019 due to dehydration and altered mental status, now with: #Severe sepsis with initial septic shock: Continues with hypotension, leukocytosis, elevated elevated lactate; source UTI/bacteremia, extensive necrotic decubiti and possible pneumonia. Poor prognosis. #E. coli bacteremia: Likely due to complicated UTI v/s intra-abdominal source. #Catheter associated UTI: patient with and old Blackman catheter with purulence, exchanged. #Bilateral pneumonia: Possible aspiration #DYLLAN: Renally adjust antibiotic #Elevated LFTs: Likely due to severe sepsis #Extensive multiple decubiti with necrosis: Mainly in her back, and sacral area. continue wound care. Recommendations: Continue ceftriaxone 1 g IV daily Flagyl added Apparently, CT scan could not be done due to contractures prognosis is extremely poor, high mortality risk Godfrey Araujo MD, FACP [facility] ([facility] C: [phone] O: [phone] F: [phone] Subjective Date of service: 07/18/19 Principal diagnosis: Sepsis, dehydration, AMS. Interval history: Patient unresponsive at baseline. Spiking high fevers. Apparently, CT scan could not be done due to contractures. Patient is on hospice, apparently, plan is for stabilization and [facility] under [facility]. Objective - Exam Narrative Exam: Physical Exam: Constitutional: Unresponsive Head, Ears, Nose: Normocephalic, atraumatic. External ears, nose normal Eyes: Conjunctivae/corneas clear. No icterus. No ptosis. Neck: Trach present Cardiovascular: S1, S2 normal. Respiratory: Few rhonchi GI: Soft, G-tube present, bowel sounds present Musculoskeletal: No pedal edema, no cyanosis. Contractures Skin: No rash or abscess Hem/Lymphatic: No palpable cervical or supraclavicular nodes. No lymphangitis Psych: Unresponsive, no agitation Neurological: Unresponsive - Constitutional Vitals: Vital Signs Temp Pulse Resp BP Pulse Ox 100.1 F H 98 H 22 66/27 95 07/18/19 08:32 07/18/19 08:32 07/18/19 08:32 07/18/19 08:32 07/18/19 08:44 Temperature -Last 24 Hours Temperature 100.1 F Temperature 103.0 F Temperature 102.9 F Temperature 98.7 F - Labs CBC & Chem 7: 07/16/19 18:26 07/15/19 08:53 Labs: Abnormal lab results 07/17/19 07/17/19 07/17/19 Range/Units 11:54 17:04 22:31 POC Glucose 191 H 143 H 182 H (70-105) 07/18/19 Range/Units 07:50 POC Glucose 248 H (70-105)
[2019-07-18] MEDS: metroNIDAZOLE/NS 500 MG/100 ML 500 MG/100 ML BAG IV SCH ×2 (14:19→21:15)
[2019-07-18] MEDS: cefTRIAXone/NS 1 GM/50 ML 1 GM/50 ML BAG IV SCH (16:46)
--- NOTE | 2019-07-18 20:43 | Progress Note ---
Assessment and Plan - Patient Problems (1) Septic shock Current Visit: Yes Status: Acute Plan to address problem: Treat etiology. (2) Acute renal failure Current Visit: Yes Status: Acute Qualifiers: Acute renal failure type: unspecified Qualified Code(s): N17.9 - Acute kidney failure, unspecified Plan to address problem: continue hydration. (3) Decubitus ulcers Current Visit: Yes Status: Chronic Qualifiers: Pressure injury location: unspecified location Pressure injury stage: unspecified pressure injury stage Qualified Code(s): L89.90 - Pressure ulcer of unspecified site, unspecified stage Plan to address problem: chronic.Wound care when indicated. (4) Failure to thrive Current Visit: Yes Status: Acute Qualifiers: Failure to thrive age range: in adult Qualified Code(s): R62.7 - Adult failure to thrive (5) Metabolic acidosis Current Visit: Yes Status: Acute Plan to address problem: Improving. (6) Pneumonia Current Visit: Yes Status: Acute Qualifiers: Pneumonia type: due to unspecified organism Laterality: bilateral Lung location: unspecified part of lung Qualified Code(s): J18.9 - Pneumonia, uns pecified organism Plan to address problem: Continue with ABX. Subjective Date of service: 07/18/19 Principal diagnosis: Sepsis, dehydration, AMS. Interval history: Patient seen/examined, resting in bed, notes/records/labs reviewed, still no family for discussion. Patient still remains in hospice.Appreciate all the consultants. patients records in the Computer will not allow Blood transfusion. No family available even on the phone for discussion.Wound care still awaiting. Patient seen/examined, resting in bed, clinically unchanged. I have put out a call to the daughter, and she is not calling back. Order given earlier today to proceed with blood transfusion, once the family ok. Consultants rec as know ,that chances of any meaningful recovery is nil, and hence , going back with hospice the best choice.I have asked GI to replace peg tube ,if feasible, then will send back to the [facility] under hosp[facility] once the daughter calls back. Patient seen/examined, resting in bed, records reviewed,still no answer from the daughter, even Gi tried to call her also, but no response.Once peg tube replaced, will plan [facility] [place] [facility]. Patient seen/examined, resting in bed, records reviewed, discussed with GI, post peg tube replacement. peg area with some ulceration. Will ask wound care to see, and do CT of the abdomen.Still trying to communicate with the daughter.Will check new labs, to see if WBC coming down with IV ABX. Patient seen/examined, resting in bed, examined, records, notes reviewed. Unable to do CT , due to technicalities. Temps down today. Will continue IV abx, resume nutrition very slowly, and re do labs, and if better stable, will d/c back to the NH. Objective - Constitutional Vitals: Vital Signs - 12hr 07/18/19 07/18/19 07/18/19 08:44 14:52 20:23 Temperature 98.6 F 99.4 F Pulse Rate 85 61 Respiratory 20 20 Rate Blood Pressure 75/32 108/37 O2 Sat by Pulse 95 91 80 L Oximetry General appearance: Present: no acute distress, cachectic - EENT Eyes: PERRL, EOM intact ENT: hearing intact, clear oral mucosa Ears: bilateral: normal - Neck Neck: supple, normal ROM - Respiratory Respiratory: bilateral: diminished - Breasts Breasts: deferred - Cardiovascular Rhythm: regular Heart Sounds: Present: S1 & S2. Absent: gallop, rub Extremities: pulses intact, No edema, normal color, Full ROM - Gastrointestinal General gastrointestinal: Present: soft, non-tender, non-distended, normal bowel sounds Rectal Exam: deferred - Genitourinary Female genitourinary: deferred - Integumentary Integumentary: clear, warm, dry - Musculoskeletal Musculoskeletal: generalized weakness - Labs CBC & Chem 7: 07/16/19 18:26 07/15/19 08:53 Labs: Abnormal lab results 07/17/19 07/18/19 07/18/19 Range/Units 22:31 07:50 12:09 POC Glucose 182 H 248 H 237 H (70-105)
[2019-07-19 04:50] VITALS: BP 105/21
--- NOTE | 2019-07-19 07:43 | Death Note ---
Note Date of : 07/19/19 Time Pronounced: 06:35 - Preliminary Cause of (problem) (1) Acute renal failure Qualifiers: Acute renal failure type: unspecified Qualified Code(s): N17.9 - Acute kidney failure, unspecified Preliminary cause of (2) Anemia in chronic illness Preliminary cause of (3) Failure to thrive Qualifiers: Failure to thrive age range: in adult Qualified Code(s): R62.7 - Adult failure to thrive Preliminary cause of (4) Septic shock Preliminary cause of
--- NOTE | 2019-07-19 20:21 | Death Summary ---
Summary - Providers Date of service: 07/19/19 Consults: 07/13/19 10:51 Physical Therapy Evaluation and Treat [CONS] Routine Comment: Reason For Exam: weakness 07/13/19 12:14 Consult to Wound/ET Nurse [CONS] Routine Reason For Exam: wound eval 07/13/19 19:34 Consult to Physician [CONS] Routine Comment: Consulting Provider: PIA VAIL Physician Instructions: Reason For Exam: possible peg dislodgement 07/13/19 20:49 Consult to Physician [CONS] Routine Comment: Consulting Provider: BARRON RAMIREZ Physician Instructions: Reason For Exam: septic shock 07/14/19 08:33 Consult to Physician [CONS] Routine Comment: Consulting Provider: MILLY ESTRADA Physician Instructions: Reason For Exam: renal function 07/16/19 21:36 Consult to Physician [CONS] Routine Comment: called answ. serv/ radha Consulting Provider: LAURA WORTHINGTON Physician Instructions: Reason For Exam: need peg tube replacement. 07/17/19 15:30 Consult to Wound/ET Nurse [CONS] Routine Reason For Exam: evaluate peg area wound. Attending: NANDA WADDELL - summary Date of admission: 07/14/19 14:37 Date of : 07/19/19 Reason for admission: See below. Significant findings: Patient presented from the [facility], with AMS/sepisi . Patient was under the care of hospice at the [place], but family revoked , prior to the ER trip, for eval.Patient was found in profound sepsis, and severe AFTT/ debility.She was seen in consult by ID, for sepsis, with elevated WBS. She was also seen by renal,. for ATN/dehydration. By GI, for dilodged peg tube. all the physician on board agreed that prognosis was quite poor or near grave. I discussed with the daughter ,who agreed, and did not want any further aggressive tx. Patient had over whelming sepsis burden, and unable to overcome it, despite any measure. Patient was already an AND. She apparently succumbed to her ordeal, and was pronounced , and the daughter was notified by the staff. - Final diagnosis (1) Septic shock Note: Final diagnosis: (2) Acute renal failure Qualifiers: Acute renal failure type: with acute tubular necrosis Qualified Code(s): N17.0 - Acute kidney failure with tubular necrosis Note: Final diagnosis: (3) Decubitus ulcers Qualifiers: Pressure injury location: contiguous region involving buttock and hip Pressure injury stage: pressure injury of deep tissue Note: Final diagnosis: (4) Failure to thrive Qualifiers: Failure to thrive age range: in adult Qualified Code(s): R62.7 - Adult failure to thrive Note: Final diagnosis: (5) Metabolic acidosis Note: Final diagnosis: (6) Pneumonia Qualifiers: Pneumonia type: due to unspecified organism Laterality: bilateral Lung location: unspecified part of lung Qualified Code(s): J18.9 - Pneumonia, unspecified organism Note: Final diagnosis:
== END 2019-07-19 08:00 | DRG 871 ==
LOC: ED 00:13 → 2B-ACE 04:32 → OBSVTOIN 07-14 14:37
PROVIDERS: ADMIT Internal Medicine Hematology & Oncology; ATTEND Internal Medicine Hematology & Oncology
PROC: 02HV33Z Insertion of Infusion Device into Superior Vena Cava, Percutaneous Approach (ICD-10-PCS; 2019-07-14)
PROC: 30233N1 Transfusion of Nonautologous Red Blood Cells into Peripheral Vein, Percutaneous Approach (ICD-10-PCS; principal; 2019-07-16)
PROC: 0D20XUZ Change Feeding Device in Upper Intestinal Tract, External Approach (ICD-10-PCS; 2019-07-17)
DX: A41.9 Sepsis, unspecified organism (principal); R65.21 Severe sepsis with septic shock; J18.9 Pneumonia, unspecified organism; J96.21 Acute and chronic respiratory failure with hypoxia; E43 Unspecified severe protein-calorie malnutrition; N17.0 Acute kidney failure with tubular necrosis; T83.518A Infection and inflammatory reaction due to other urinary catheter, initial encounter; E87.2 Acidosis; Z68.1 Body mass index [BMI] 19.9 or less, adult; G93.1 Anoxic brain damage, not elsewhere classified; R62.7 Adult failure to thrive; E87.6 Hypokalemia; I25.10 Atherosclerotic heart disease of native coronary artery without angina pectoris; R13.12 Dysphagia, oropharyngeal phase; Y83.8 Other surgical procedures as the cause of abnormal reaction of the patient, or of later complication, without mention of misadventure at the time of the procedure; Z66 Do not resuscitate; Z51.5 Encounter for palliative care; D64.9 Anemia, unspecified; L89.159 Pressure ulcer of sacral region, unspecified stage; L89.109 Pressure ulcer of unspecified part of back, unspecified stage; Z79.899 Other long term (current) drug therapy; Z79.82 Long term (current) use of aspirin; Z86.74 Personal history of sudden cardiac arrest; I25.2 Old myocardial infarction; Z90.710 Acquired absence of both cervix and uterus; Z93.0 Tracheostomy status; Y92.89 Other specified places as the place of occurrence of the external cause
CPT/HCPCS: 36415; 71045; 80048; 80053; 81001; 82140; 82270; 82570; 82962; 84156; 84300; 85007; 85025; 85027; 86850; 86900; 86901; 86920; 87040; 87076; 87086; 87116; 87186; 94760; G0378; A6260; J0696; J1815; J2543; J3370; J3480; J7030; J7040; P9016